=== PATIENT | male | born 1960 | race Caucasian/White ===

== ENCOUNTER 2020-04-07 01:12 | Outpatient (CLI) | payer MEDICAID, SELFPAY ==
[2020-04-07 14:37] LABS: Hemoglobin A1C 7.6 % (<5.7)
[2020-04-07 14:48] LABS: COMMENT (LAB VIEW ONLY) 158.28 mg/dL
[2020-04-07 14:50] LABS: Microalb ug/mg Crea 393.6 ug/mg Cr
[2020-04-07 15:35] LABS: ALT 27 U/L (16-63); AST 15 U/L (15-37); Albumin 4.2 g/dL (3.4-5.0); Alkaline Phosphatase 89 U/L (46-116); Anion Gap 10.7 mmol/L (3-11); BUN 54 mg/dL (7-18); Bilirubin, Total 0.9 mg/dL (0.2-1.0); CO2 22.3 mmol/L (21.0-32.0); CREATININE 2.6 mg/dL (0.70-1.30); Calcium 9.3 mg/dL (8.5-10.1); Calculated LDL 70 mg/dL (<100); Chloride 106 mmol/L (98-107); Cholesterol 136 mg/dL (<200); Folate 15.4 ng/mL (8.6-20.0); Glucose 119 mg/dL (74-106); HDL Cholesterol 37 mg/dL (40-60); Potassium 5.2 mmol/L (3.5-5.1); Sodium 139 mmol/L (136-145); TSH (W/Ref FT4) 2.22 uIU/mL (0.36-3.74); Total Protein 8.2 g/dL (6.4-8.2); Triglyceride 145 mg/dL (<150); Vitamin B12 430 pg/mL (193-986)
[2020-04-07 22:06] LABS: PSA, Screening 4.9 ng/mL (0.0-4.5)
[2020-04-10 10:39] LABS: Hepatitis C Ab w Rflx HCV PCR Negative (Negative)
[2020-04-10 11:27] LABS: HIV-1/2 Ag & Ab Screen Negative (Negative)
== END 2020-04-07 01:13 | disposition home or self-care (01) ==
LOC: LBO 01:12
PROVIDERS: PCP Nurse Practitioner Adult Health; Visit Provider Nurse Practitioner Adult Health
DX: I10 Essential (primary) hypertension (principal); E78.5 Hyperlipidemia, unspecified; E10.8 Type 1 diabetes mellitus with unspecified complications; N18.30 Chronic kidney disease, stage 3 unspecified; Z11.59 Encounter for screening for other viral diseases; Z11.4 Encounter for screening for human immunodeficiency virus [HIV]; Z12.5 Encounter for screening for malignant neoplasm of prostate
CPT/HCPCS: 36415; 80053; 80061; 84153; 86803; 87389; 82043; 82570; 82607; 82746; 83036; 84443

== ENCOUNTER 2020-05-30 03:49 | Outpatient (CLI) | payer MEDICAID, SELFPAY ==
[2020-05-30 11:47] LABS: Anion Gap 10.2 mmol/L (3-11); BUN 60 mg/dL (7-18); CO2 23.8 mmol/L (21.0-32.0); CREATININE 2.5 mg/dL (0.70-1.30); Calcium 9.6 mg/dL (8.5-10.1); Chloride 108 mmol/L (98-107); Estimated GFR 26.48 (mL/min/1.73m2); Glucose 176 mg/dL (74-106); Potassium 5.9 mmol/L (3.5-5.1); Sodium 142 mmol/L (136-145)
[2020-05-30 17:49] LABS: PSA, Screening 4.6 ng/mL (0.0-4.5)
== END 2020-05-30 03:50 | disposition home or self-care (01) ==
LOC: LBO 03:49
PROVIDERS: PCP Nurse Practitioner Adult Health; Visit Provider Nurse Practitioner Adult Health
DX: E87.5 Hyperkalemia (principal); N18.30 Chronic kidney disease, stage 3 unspecified; R97.20 Elevated prostate specific antigen [PSA]; Z12.5 Encounter for screening for malignant neoplasm of prostate
CPT/HCPCS: 36415; 80048; 84153

== ENCOUNTER 2020-06-16 02:16 | Outpatient (CLI) | payer MEDICAID, SELFPAY ==
[2020-06-16 13:28] LABS: Anion Gap 9.7 mmol/L (3-11); BUN 46 mg/dL (7-18); CO2 23.3 mmol/L (21.0-32.0); Calcium 9.2 mg/dL (8.5-10.1); Chloride 109 mmol/L (98-107); Estimated GFR 34.25 (mL/min/1.73m2); Glucose 122 mg/dL (74-106); Potassium 5.5 mmol/L (3.5-5.1); Sodium 142 mmol/L (136-145)
== END 2020-06-16 02:17 | disposition home or self-care (01) ==
LOC: LBO 02:16
PROVIDERS: PCP Nurse Practitioner Adult Health; Visit Provider Nurse Practitioner Adult Health
DX: R79.89 Other specified abnormal findings of blood chemistry; E87.5 Hyperkalemia; Z85.528 Personal history of other malignant neoplasm of kidney; Z90.5 Acquired absence of kidney
CPT/HCPCS: 36415; 76770; 80048

== ENCOUNTER 2020-06-16 03:50 | Outpatient (CLI) | payer MEDICAID, SELFPAY ==
--- NOTE | 2020-06-16 07:45 | DI.US_ITS ---
EXAM: US RENAL CLINICAL HISTORY: ELEVATED CREATININE,H/O RENAL CELL CA,S/P RT NEPHRECTOMY AND LT PARTIAL KID. TECHNIQUE: Poon scale, color and spectral Doppler were used. COMPARISON: No exams were available for comparison FINDINGS: Renal size in cm: Right: Status post right nephrectomy. Left: 13.3. Echogenicity: Normal. Hydronephrosis: No. Cyst or mass: No. Nephrolithiasis: No. Other findings: None. Bladder:There is impingement on the base of the urinary bladder by the enlarged prostate gland. No b ladder mass is seen. Ureteral jets: Right: Status post right nephrectomy. Left: Visualized and unremarkable. Prevoid vol:143 cc Postvoid vol:6 cc Prostate: 62.4 cc Renal color flow: Within normal limits. IMPRESSION: 1. Status post right nephrectomy. 2. Unremarkable left kidney. No evidence of a left renal mass. 3. Enlarged prostate gland. DATA REPOSITORY:
== END 2020-06-16 04:10 ==
PROVIDERS: PCP Nurse Practitioner Adult Health; Visit Provider Urology
DX: Z85.528 Personal history of other malignant neoplasm of kidney (principal); R79.89 Other specified abnormal findings of blood chemistry; Z90.5 Acquired absence of kidney
CPT/HCPCS: 76770

== ENCOUNTER 2020-10-05 09:50 | Outpatient (CLI) | payer MEDICAID, SELFPAY ==
--- NOTE | 2020-10-05 08:45 | DI.RAD_ITS ---
Exam(s) XR ELBOW LT COMPLETE EXAM: XR ELBOW LT COMPLETE CLINICAL HISTORY: pain. TECHNIQUE: 2D digital imaging was performed. COMPARISON: No exams were available for comparison FINDINGS: There is no evidence of obvious acute fracture although there does appear to be a joint effusion with elevation both anterior posterior fat pads in the left elbow. Deformity of the left radial head is most probably degenerative. Also degenerative changes at the joint space between the medial aspect o f the trochlea and coronoid. The medial epicondyle exhibits a small excrescence.. [place] noted adj acent to the lateral epicondyle. Incidentally noted is abnormal appearance of the medullary cavity in the visualized proximal half of the radius. Suspicious for infiltrative disorder or fibrous dysplasia. IMPRESSION: Degenerative changes in the elbow joint. Elbow joint effusion. No obvious fractures. Possible loos e intra-articular bodies. Incidentally noted is abnormal medullary cavity appearance of the visualized proximal half of the rad ius. Consideration are or fibrous dysplasia versus is infiltrative disorder. DATA REPOSITORY: RADIATION DOSE DELIVERED:
--- NOTE | 2020-10-05 09:15 | DI.RAD_ITS ---
Exam(s) XR FOREARM LT EXAM: XR FOREARM LT CLINICAL HISTORY: radius findings on elbow xray. TECHNIQUE: 2D digital imaging was performed. COMPARISON: CR XR FOREARM LT from 10/05/2020 CR XR FOREARM LT from 10/05/2020 FINDINGS: Views of the left forearm bones with comparison views of the right side. There are no fractures. The medullary cavity of the left radius appears somewhat abnormal, having the appearance of possibly fibrous dysplasia. Other consideration would be for an infiltrative process. The medullary cavity of the ulna is unremarkable. 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 Cannot ex clude infiltrative disorder. Recommend whole body nuclear bone scan. DATA REPOSITORY: RADIATION DOSE DELIVERED:
--- NOTE | 2020-10-05 09:15 | DI.RAD_ITS ---
Exam(s) XR FOREARM RT EXAM: XR FOREARM RT CLINICAL HISTORY: radius findings on elbow xray. TECHNIQUE: 2D digital imaging was performed. COMPARISON: CR XR FOREARM RT from 10/05/2020 CR XR FOREARM RT from 10/05/2020 FINDINGS: Two views of the right forearm reveal no evidence of fracture or dislocation. No osseous lesions. The medullary cavity of the right radius appears unremarkable, particularly when compared to the medu llary cavity of the opposite-left radius. Ulna appears unremarkable. IMPRESSION: DATA REPOSITORY: RADIATION DOSE DELIVERED:
== END 2020-10-05 09:51 | disposition home or self-care (01) ==
LOC: DIORS 09:50
PROVIDERS: PCP Nurse Practitioner Adult Health; Referring Provider Nurse Practitioner Adult Health; Visit Provider Physician Assistant Surgical
DX: M19.022 Primary osteoarthritis, left elbow; M25.422 Effusion, left elbow; M85.0 Fibrous dysplasia (monostotic); S59.902A Unspecified injury of left elbow, initial encounter; X58.XXXA Exposure to other specified factors, initial encounter
CPT/HCPCS: 73080; 73090

== ENCOUNTER 2020-10-31 01:57 | Outpatient (CLI) | payer MEDICAID, SELFPAY ==
--- NOTE | 2020-10-31 07:15 | DI.MRI_ITS ---
Exam(s) MR UPPER EXTREMITY LT WO CLINICAL HISTORY: eval radial bone lesion LT FOREARM,M89.9. TECHNIQUE: Multiplanar multisequence MRI Examination was performed. COMPARISON: None FINDINGS: The examination is limited due to patient motion artifact. Bones: The proximal radial diaphysis appears mildly expansile. There is some thinning of the cortex anteriorly. There is hyperintense signal seen on the T1 weighted images predominantly hypointense si gnal on the fat suppressed T2 weighted images. There is an area in the proximal shaft measuring 2.7 cm with a thin peripheral hypointense rim. No marrow edema is identified. No associated soft tissue mass is seen. Musculotendinous structures: There is no muscular edema, myositis or focal collection. No muscular in jury Joints: There are mild degenerative changes seen at the elbow joint with thinning of the articular ca rtilage and subchondral edema. There is a very small joint effusion. IMPRESSION: Mildly expansile proximal radial diaphyseal lesion which appears to follow fat on all pulse sequences . This may represent an intraosseous lipoma. Neoplasm is not excludable. No associated soft tissue mass or cortical disruption is identified. A postcontrast examination is recommended for further ev aluation. A bone scan and/or CT scan may also be considered for further evaluation.. DATA REPOSITORY:
== END 2020-10-31 02:17 ==
PROVIDERS: PCP Nurse Practitioner Adult Health; Visit Provider Student in an Organized Health Care Education/Training Program
DX: M79.632 Pain in left forearm; M19.022 Primary osteoarthritis, left elbow; M89.8X3 Other specified disorders of bone, forearm
CPT/HCPCS: 73218

== ENCOUNTER 2020-10-31 09:51 | Emergency (ER) | payer MEDICAID, SELFPAY ==
[2020-10-31 10:00] VITALS: BP 131/85; PULSE 66; RESP 18; TEMP 36.4; O2SAT 96
--- NOTE | 2020-10-31 10:10 | ED.GENADUL_ITS ---
Discharge Plan Disposition Patient Disposition: HOME Condition: Stable Discharge Details Clinical Impression: Finger injury Primary Care Provider: Mel Llamas ED Provider: Jerome Claudio Home Meds and New Rx's Prescriptions: Continued metoprolol succinate 25 mg tablet extended release 24 hr 25 mg PO HS Qty: 90 RF: 3 atorvastatin 20 mg tablet 20 mg PO QHS Qty: 90 RF: 3 Lantus Solostar U-100 Insulin 100 unit/mL (3 mL) insulin pen 38 unit subcut HS MDD 45 units daily Qty: 45 RF: 3 (DME) lancets Misc See Rx Instructions .MEDSUPPLY RF: 0 gabapentin 300 mg capsule 300 mg PO QHS PRN (Reason: nerve pain in legs & CTS) Qty: 30 RF: 1 (DME) Blood Glucose Test Strip See Rx Instructions .ROUTE .MEDSUPPLY Qty: 400 RF: 3 (DME) pen needle, diabetic [BD Ultra-Fine Doreen Pen Needle] 32 gauge x 5/32 needle See Rx Instructions .ROUTE .MEDSUPPLY Qty: 360 RF: 3 insulin lispro [Humalog KwikPen Insulin] 100 unit/mL insulin pen 12 - 15 unit subcut TID PRNRF: 0 duloxetine 60 mg capsule,delayed release(DR/EC) 60 mg PO QAM Qty: 90 RF: 3 Discharge Instructions Instructions: Finger Sprain (ED) Additional Instructions: Awake aware kenny taping and splint as needed, advance activity as tolerated. Rest, elevate, cool compresses every 2 hours for 20 minutes. [id number] Tylenol as directed for discomfort. Please watch for new or worsening symptoms and return to the ER for any concerns Medical Decision Making 60-year-old gentleman, [id number], presents for left third finger pain and swelling, not sure of any injury. No fever, other joint pain, erythema, warmth, signs of infection, etc. Neuro, vascular, tendon intact. Will obtain x-ray and reassess X-ray read by radiology is unremarkable. Discussed x-ray findings with patient. Will kenny tape and apply AlumaFoam finger splint. Patient comfortable with this plan and has no additional questions or concerns. Standard discharge and return precautions given This documentation was generated using [employer] system, please disregard any oddities of phrase or misspellings. Medical Records Medical records reviewed: Yes I reviewed the patient's medical records. Imaging Data Radiologic Study: Attestation: I personally reviewed and interpreted this imaging study as follows: Imaging: X-Ray Radiologist's impression: EXAM XR HAND LT COMPLETE CLINICAL HISTORY [ L 3rd finger pain/swelling. ] [] TECHNIQUE 2D digital imaging was performed. COMPARISON [No exams were available for comparison] [] FINDINGS BONES: [No acute fracture is present.] [No bony destructive lesion is seen.] [] JOINTS: [No dislocation present.] [Minimal degenerative changes are seen in the hand.] SOFT TISSUE: [There is soft tissue swelling of the left 3rd finger. No radi opaque foreign bodies are seen.] [] IMPRESSION [Soft tissue swelling of the left 3rd finger. No radiopaque foreign body, fracture or dislocation. HPI General Mode of arrival: ambulatory . Date/Time Provider Initiated Documentation: 10/31/20 10:04 . Limitations to Documentation: no limitations . Information obtained by: patient . HPI Narrative: This is a 60-year-old gentl eman, [id number], past medical history that includes bilateral carpal tunnel syndrome, CKD, diabetes, hypertension, neuropathy, presenting to the ER complaining of atraumatic left middle finger discomfort. Patient reports it has been present for at least 2-3 days, swollen but denies redness or warmth. Denies fever, rash, any other joint pain. He has taken [id number] Tylenol with little relief. Patient is unaware of any obvious injury. Reports that he is pain-free at rest but with attempting to flex the finger has increased discomfort. Is able to fully extend the finger. Denies any numbness, tingling, weakness. Related Data Home Medications Medication Instructions Recorded Confirmed metoprolol succinate 25 mg 25 mg PO HS #90 tab 03/06/20 10/31/20 tablet,extended release 24 hr blood sugar diagnostic #400 ea 05/12/20 10/31/20 pen needle, diabetic 32 gauge x #360 ea 05/12/20 10/31/20 insulin lispro 100 unit/mL 12 - 15 unit SUBCUT TID PRN ml 05/19/20 10/31/20 subcutaneous pen lancets ea 08/03/20 10/31/20 atorvastatin 20 mg tablet 20 mg PO QHS #90 tab 08/07/20 10/31/20 insulin glargine 100 unit/mL (3 38 unit SUBCUT HS #45 ml MDD 45 08/07/20 10/31/20 mL) subcutaneous pen units daily gabapentin 300 mg capsule 300 mg PO QHS PRN #30 cap 09/15/20 10/31/20 duloxetine 60 mg capsule,delayed 60 mg PO QAM #90 cap 10/26/20 10/31/20 release Previous Rx's Medication Instructions Recorded metoprolol succinate 25 mg 25 mg PO HS #90 tab 03/06/20 tablet,extended release 24 hr blood sugar diagnostic #400 ea 05/12/20 pen needle, diabetic 32 gauge x #360 ea 05/12/20 atorvastatin 20 mg tablet 20 mg PO QHS #90 tab 08/07/20 insulin glargine 100 unit/mL (3 38 unit SUBCUT HS #45 ml MDD 45 08/07/20 mL) subcutaneous pen units daily gabapentin 300 mg capsule 300 mg PO QHS PRN #30 cap 09/15/20 duloxetine 60 mg capsule,delayed 60 mg PO QAM #90 cap 10/26/20 release Allergies Allergy/AdvReac Type Severity Reaction Status Date / Time No Known Allergies Allergy Verified 10/31/20 10:04 lactose intolerant AdvReac Mild Diarrhea Uncoded 10/31/20 10:04 General Stated Complaint: Orthopedic GALILEO: 4 Review of Systems Constitutional Constitutional: Denies fever(s) and Denies weakness Musculoskeletal Musculoskeletal: Denies deformity, Reports arthralgias, Denies numbness, Reports stiffness and Denies tingling Integumentary/Breasts Skin/Breast: Denies erythema and Denies rash Neurologic Neurologic: Denies numbness, Denies tingling and Denies weakness [facility] Medical History Bilateral carpal tunnel syndrome Carpal tunnel syndrome on both sides +[facility] 05/08/2020 Chronic gingivitis, plaque induced 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 CKD (chronic kidney disease) stage 3, GFR 30-59 ml/min DMT1 & Solitary partial L kidney Cubital tunnel syndrome on left Cubital tunnel syndrome on right Elevated serum creatinine Family history of prostate cancer F History of elevated PSA Per [facility] Records--01/14/2019 6.41, 04/28/2018 6.32; +Fam hx prostate cancer in F History of opioid abuse s/p surgeries History of renal cell cancer s/p nephrectomy Hyperlipidemia Hypertension RX Lisinopril Neuropathy h/o Neurologist Polyneuropathy associated with underlying disease DM Renal cell carcinoma Serum potassium elevated Solitary left kidney s/p nephrectomy on R 2004 renal cell cancer; partial nephrectomy on L 2007 Tubular adenoma of colon 08/2018 colonoscopy [facility]; recall 5y Type 1 diabetes mellitus without complications Surgical History H/O partial nephrectomy (~04/2007) left History of nephrectomy, right (~03/2004) Renal cell cancer Family History Mother , 54yo breast cancer Alcohol abuse Breast cancer Depression Substance abuse Father , ~70yo prostate cancer Alcohol abuse Prostate cancer Substance abuse Sister , throat caner (nicotine use) Alcohol abuse Cancer Cervical Substance abuse Social History Smoking/Tobacco Use Status: Never Smoking risk assessment performed?: Yes Alcohol Intake: former Year quit: 2019 Previous attempts at quittin Counseling given: Yes ([facility]) Drug use: Current Sobriety Substance use type: opiates Details: no IV drug use Adopted: No Caregiver/Support person: No Foster care: No Household members: other Details: Sober Living Facility Housing: other Number of Children: 4 number of grandchildren: 4 Communication Needs: None Education Level: college Do you need help understanding health information?: Rarely 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: RETIRED [employer] (ON SSDI) Pets and animals: Yes Pets and animals: cat(s) Sexually active: No Do you think of yourself as: straight/heterosexual Current gender identity: male What is your relationship status?: How often do you talk on the phone with friends or family?: three or more times per week How often do you get together with friends or relatives?: three or more times per week How often do you attend anglican or jehovah's witness services?: 4 or more times per year Do you belong to any clubs or organized social groups?: no Panel score (0-1 are the most socially isolated patients): 2 What type of physical activity do you participate in: walking, bicycling and other Details: EXERCISE ON STATIONARY BIKE Duration: < 15 minutes/day Frequency: 3-4 times per week Erin/Christian: Rastafarian Agree to transfusion: No Seatbelt use: always Helmet use: Yes 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 Water heater temp set <120 deg: Yes Working smoke detector in home: Yes Fire extinguisher in home: Yes Do you feel safe at home: Yes Do you feel safe in your relationship?: Yes Exam Const General: cooperative, healthy appearing, comfortable and no acute distress Orientation: alert and awake [facility] Head: normal to inspection, normocephalic and atraumatic Eyes General: appearance normal, both eyes and all related structures Conjunctivae: conjunctivae normal Neck Neck: normal visual inspection, trachea midline and supple Resp Effort & Inspection: normal respiratory effort and able to speak in complete sentences Cardio Rate: regular rate Rhythm: regular rhythm Skin General skin exam: no rashes or lesions noted Neuro General: patient alert, patient awake, moves all extremities and no focal motor deficits Cognition: normal cognition Speech: speech normal Gait: normal gait Sensory Exam: no sensory deficits noted Extrem General: capillary refill normal Other: Left hand, third digit from the MCP to the DIP joint with diffuse mild swelling and mild discomfort, no erythema, warmth or ecchymosis. The MCP joint itself is unremarkable, nontender. Full extension, limited flexion. Normal capillary refill and radial pulse. Otherwise hand and digits are unremarkable. Skin is intact. Psych Appearance: grossly normal Mental Status: mental status grossly normal Course Vital Signs Vital signs: Vital Signs Temperature 36.4 C L 10/31/20 10:00 Pulse 66 10/31/20 10:00 Respiratory Rate 18 10/31/20 10:00 Blood Pressure 131/85 10/31/20 10:00 Pulse Oximetry 96 10/31/20 10:00 Temperature 36.4 C L 10/31/20 10:00 Temperature Source Temporal Artery Scan 10/31/20 10:00 Pulse 66 10/31/20 10:00 Respiratory Rate 18 10/31/20 10:00 Respiratory Effort Non-Labored 10/31/20 10:03 Blood Pressure 131/85 10/31/20 10:00 Blood Pressure Position Sitting 10/31/20 10:00 Pulse Oximetry 96 10/31/20 10:00 Oxygen Delivery Method Room Air 10/31/20 10:00 Oxygen Flow Rate 0 10/31/20 10:00 Pain Level 4 10/31/20 10:06
--- NOTE | 2020-10-31 10:33 | DI.RAD_ITS ---
Exam(s) XR HAND LT COMPLETE EXAM: XR HAND LT COMPLETE CLINICAL HISTORY: L 3rd finger pain/swelling. TECHNIQUE: 2D digital imaging was performed. COMPARISON: No exams were available for comparison FINDINGS: BONES: No acute fracture is present. No bony destructive lesion is seen. JOINTS: No dislocation present. Minimal degenerative changes are seen in the hand. SOFT TISSUE: There is soft tissue swelling of the left 3rd finger. No radiopaque foreign bodies are seen. IMPRESSION: Soft tissue swelling of the left 3rd finger. No radiopaque foreign body, fracture or dislocation. DATA REPOSITORY: RADIATION DOSE DELIVERED:
== END 2020-10-31 11:13 | disposition home or self-care (01) ==
PROVIDERS: Emergency Provider Physician Assistant; PCP Nurse Practitioner Adult Health
DX: S69.82XA Other specified injuries of left wrist, hand and finger(s), initial encounter (principal); X58.XXXA Exposure to other specified factors, initial encounter
CPT/HCPCS: 29130; 99283; 73130

== ENCOUNTER 2020-11-22 00:35 | Outpatient (CLI) | payer MEDICAID, SELFPAY ==
[2020-11-22 10:29] LABS: Hemoglobin A1C 10.2 % (<5.7)
[2020-11-22 10:55] LABS: Anion Gap 10.4 mmol/L (3-11); BUN 46 mg/dL (7-18); CO2 23.6 mmol/L (21.0-32.0); CREATININE 2.2 mg/dL (0.70-1.30); Calcium 9.2 mg/dL (8.5-10.1); Chloride 107 mmol/L (98-107); Estimated GFR 30.58 (mL/min/1.73m2); Glucose 240 mg/dL (74-106); Potassium 5.5 mmol/L (3.5-5.1); Sodium 141 mmol/L (136-145)
[2020-11-22 17:03] LABS: PSA, Diagnostic 5.6 ng/mL (0.0-4.5)
== END 2020-11-22 00:36 | disposition home or self-care (01) ==
PROVIDERS: Urology; PCP Nurse Practitioner Adult Health; Visit Provider Nurse Practitioner Adult Health
DX: E10.8 Type 1 diabetes mellitus with unspecified complications (principal); N18.30 Chronic kidney disease, stage 3 unspecified; R97.20 Elevated prostate specific antigen [PSA]
CPT/HCPCS: 36415; 80048; 83036; 84153

== ENCOUNTER 2021-05-30 03:34 | Outpatient (CLI) | payer MEDICAID, SELFPAY ==
--- NOTE | 2021-05-31 15:00 | NS.NUTBLAN_ITS ---
Dylan was referred for Diabetes Self Management. PMH: HTN, obesity (BMI 38), Recovered poly substance abuse. 5'9 250 lbs. DM meds: trulicity .5 ml q week, lantus 42 units HS, lispro 12-15 u at meals. Reports often forgetting to take basal and bolus insulin, especially lunch insulin. Diet Recall: cereal, almond milk, ham sandwich on bun, crock pot meal with beef/beans/ veggies. Does not drink soda or high sugar beverages. Most recent A1C: 10.9%. Exercise: no routine exercise Session today focused on how to balance carbs/protein and fats at meals for glycemic management. Encouraged daily walking of 1-2 miles or using pedometer (on i phone) and meeting 10, 000 steps daily. Reviewed correction factor and carb counting. Placed dexcom 6 continuous glucose monitor and programmed i phone as reader. Set up remote monitoring with [facility]. Reviewed CGM data today and noted elevated blood sugars (259 mg/dl) during night and morning. Follow up with Dylan and he reports forgetting to take basal insulin last night as at function at jehovah's witness. Encouraged taking insulin as prescribed to reduce risk of complications from poorly controlled DM. Will follow up with PCP to order dexcom 6 sensors (3 per month) as will be covered on [place] Medicaid as takes insulin 4 times daily and has been checking finger sticks regularly. Follow up meeting with data download scheduled for 06/11/21 at 3 pm. Dylan will replace current sensor prior to meeting.
== END 2021-05-30 03:35 | disposition home or self-care (01) ==
LOC: DS 03:35
PROVIDERS: PCP Nurse Practitioner Adult Health; Visit Provider Dietitian, Registered
DX: E11.9 Type 2 diabetes mellitus without complications (principal); I10 Essential (primary) hypertension; Z79.4 Long term (current) use of insulin; E66.9 Obesity, unspecified; Z71.3 Dietary counseling and surveillance
CPT/HCPCS: 97802

== ENCOUNTER → 2021-06-08 01:08 | Outpatient (CLI) | payer MEDICAID, SELFPAY | PROVIDERS: PCP Nurse Practitioner Adult Health; Visit Provider Nurse Practitioner Adult Health ==

== ENCOUNTER 2021-06-11 03:03 | Outpatient (CLI) | payer MEDICAID, SELFPAY ==
--- NOTE | 2021-06-05 10:26 | W.DIABETESNO ---
Date of service: 06/05/21 Time of Service: 10:26 Diabetes Note Reason for Visit: dm NOTE: Spoke to Dylan on phone after viewing his Dexcom 6 continuous glucose monitor data from previous week. Dm Meds: Trulicity 0.5 mg, Lantus 42 u HS, Lispro 12-15u at meals. Average blood sugars (06/04/21-05/22/21): 244 mg/dl, 16.9% Time in Range (70-180), 83% (180-249), 42.5% (>250 mg/dl). Current insulin regime not providing optimal glycemic management. Faxed CGM data to [facility] [place] endocrinology and communicated with Ryne sahu. Dylan to follow up with [facility] [place] endo for insulin adjustments. Provided him with education on correction factor (1:20) and carb counting (1:5) in view of insulin resistance. Will follow up. next appt. scheduled for 06/11/21 at 3 pm. Time Spent in Nutritional Counseling and Treatment: 5
== END 2021-06-11 03:04 | disposition home or self-care (01) ==
LOC: DS 03:03
PROVIDERS: PCP Nurse Practitioner Adult Health; Visit Provider Dietitian, Registered

== ENCOUNTER 2021-06-14 02:41 | Outpatient (CLI) | payer MEDICAID, SELFPAY | END 2021-06-14 02:42 | disposition home or self-care (01) | LOC: DS 02:41 | PROVIDERS: PCP Nurse Practitioner Adult Health; Visit Provider Dietitian, Registered ==

== ENCOUNTER 2021-06-22 00:47 | Outpatient (CLI) | payer MEDICAID, SELFPAY ==
--- NOTE | 2021-06-22 07:15 | DI.US_ITS ---
Exam(s) US RENAL EXAM: US RENAL CLINICAL HISTORY: monitoring left kidney,renal cell ca,elevated creatinine,r79.89,c64.9. TECHNIQUE: Poon scale, color and spectral Doppler were used. COMPARISON: US US RENAL from 06/16/2020 FINDINGS: Renal size in cm: Right: Status post right nephrectomy. Left: 12.7 x 7 x 7.7 cm. Echogenicity: Normal Hydronephrosis: No Cyst or mass: No Nephrolithiasis: No Bladder:Question of mild wall thickening and trabeculation. Prevoid vol: 134 cc Postvoid vol:10 cc Prostate not well imaged. Slight impression on the base of the bladder. IMPRESSION: Status post right nephrectomy. No evidence of left renal mass, stone or hydronephrosis. Mild bladde r wall thickening and trabeculation. DATA REPOSITORY:
== END 2021-06-22 01:07 ==
PROVIDERS: PCP Nurse Practitioner Adult Health; Visit Provider Nurse Practitioner Gerontology
DX: C64.1 Malignant neoplasm of right kidney, except renal pelvis (principal); R79.89 Other specified abnormal findings of blood chemistry; Z90.5 Acquired absence of kidney; N32.89 Other specified disorders of bladder
CPT/HCPCS: 76770

== ENCOUNTER 2021-10-04 03:02 | Outpatient (CLI) | payer OTHER, SELFPAY ==
[2021-10-04 08:51] LABS: Anion Gap 11.9 mmol/L (3-11); BUN 57 mg/dL (7-18); CO2 20.1 mmol/L (21.0-32.0); CREATININE 2.4 mg/dL (0.70-1.30); Calcium 9.3 mg/dL (8.5-10.1); Calculated LDL 64 mg/dL (<100); Chloride 109 mmol/L (98-107); Cholesterol 127 mg/dL (<200); Estimated GFR 27.57 (mL/min/1.73m2); Glucose 86 mg/dL (74-106); HDL Cholesterol 39 mg/dL (40-60); Potassium 4.5 mmol/L (3.5-5.1); Sodium 141 mmol/L (136-145); Triglyceride 121 mg/dL (<150)
[2021-10-04 09:03] LABS: COMMENT (LAB VIEW ONLY) 73.27 mg/dL
[2021-10-04 09:14] LABS: Hemoglobin A1C 7.1 % (<5.7)
[2021-10-04 09:37] LABS: Microalb ug/mg Crea 390.7 ug/mg Cr
[2021-10-05 09:19] LABS: PSA, Diagnostic 4.3 ng/mL (<=4.5)
== END 2021-10-04 03:03 | disposition home or self-care (01) ==
LOC: LBO 03:02
PROVIDERS: PCP Nurse Practitioner Adult Health; Visit Provider Nurse Practitioner Gerontology
DX: E10.8 Type 1 diabetes mellitus with unspecified complications (principal); E78.5 Hyperlipidemia, unspecified; E87.5 Hyperkalemia; N18.32 Chronic kidney disease, stage 3b; R97.20 Elevated prostate specific antigen [PSA]; Z80.42 Family history of malignant neoplasm of prostate; R79.89 Other specified abnormal findings of blood chemistry
CPT/HCPCS: 36415; 80048; 80061; 82043; 82570; 83036; 84153

== ENCOUNTER → 2021-10-08 08:24 | Outpatient (BNVA) | payer OTHER, MEDICAID, SELFPAY | PROVIDERS: PCP Nurse Practitioner Adult Health; Referring Provider Nurse Practitioner Adult Health; Visit Provider Nurse Practitioner Gerontology | DX: C64.9 Malignant neoplasm of unspecified kidney, except renal pelvis (principal); Q60.0 Renal agenesis, unilateral; N18.32 Chronic kidney disease, stage 3b; R97.20 Elevated prostate specific antigen [PSA]; R79.89 Other specified abnormal findings of blood chemistry; Z80.42 Family history of malignant neoplasm of prostate | CPT/HCPCS: 99214 ==

== ENCOUNTER 2021-12-02 16:54 | Emergency (ER) | payer OTHER, MEDICAID, SELFPAY ==
[2021-12-02 16:54] VITALS: BP 130/75; PULSE 118; RESP 22; TEMP 36.5; O2SAT 95
--- NOTE | 2021-12-02 16:54 | ED.GENADUL_ITS ---
Discharge Plan Disposition Patient Disposition: STILL A PATIENT Condition: Stable Discharge Details Clinical Impression: Alcohol intoxication Primary Care Provider: Mel Llamas ED Provider: Jerome Claudio Home Meds and New Rx's Prescriptions: No Action acetaminophen [Tylenol] 325 mg tablet 975 mg PO ONCE PRN (DME) lancets Misc See Rx Instructions .MEDSUPPLY Rx Instructions: As directed to check blood glucose four times daily. On insulin. Dispense covered brand. Lantus Solostar U-100 Insulin 100 unit/mL (3 mL) insulin pen 42 unit subcut HS MDD 46 units daily Qty: 45 3RF Rx Instructions: DMT1 (DME) pen needle, diabetic [BD Ultra-Fine Doreen Pen Needle] 32 gauge x needle See Rx Instructions .ROUTE .MEDSUPPLY Qty: 360 3RF Rx Instructions: BD Ultrafine 32G X 6mm, 4x/day for goal A1C<7 for E10.9 insulin lispro [Humalog KwikPen Insulin] 100 unit/mL insulin pen 12 - 15 unit subcut TID PRN Label Comments: 03/06/20 PER PT, SLIDING SCALE - MINIMUM OF 12U Rx Instructions: tid with meals per sliding to keep AIC below 7.0 metoprolol succinate 25 mg tablet extended release 24 hr 25 mg PO HS Qty: 90 3RF chlorthalidone 15 mg tablet 7.5 mg PO DAILY Label Comments: 05/29/21 visit lisinopril 2.5 mg tablet 2.5 mg PO DAILY Label Comments: 05/29/21 office visit baking soda PO Rx Instructions: 1/2 teaspoon per day due to metabolic acidosis (DME) OneTouch Verio test strips Strip See Rx Instructions .ROUTE .COMPLEX Qty: 400 0RF Dose Instruction: USE TO TEST BLOOD GLUCOSE FOUR TIMES DAILY Rx Instructions: USE TO TEST BLOOD GLUCOSE FOUR TIMES DAILY (DME) Dexcom G6 Team Manager Misc See Rx Instructions .Route Qty: 1 0RF Rx Instructions: As directed (DME) Dexcom G6 Sensor Device See Rx Instructions .Route Qty: 9 3RF Rx Instructions: as directed for DM management, requiring Insulin injections 4X day atorvastatin 20 mg tablet See Rx Instructions .ROUTE .COMPLEX Qty: 90 3RF Dose Instruction: TAKE 1 TABLET BY MOUTH EVERY NIGHT AT BEDTIME FOR CHOLESTEROL OR DIABETES Rx Instructions: TAKE 1 TABLET BY MOUTH EVERY NIGHT AT BEDTIME FOR CHOLESTEROL OR DIABETES gabapentin 300 mg capsule See Rx Instructions .ROUTE .COMPLEX Qty: 90 0RF Dose Instruction: TAKE 1 CAPSULE BY MOUTH AT BEDTIME NEEDED FOR NERVE PAIN INLEGS Rx Instructions: TAKE 1 CAPSULE BY MOUTH AT BEDTIME NEEDED FOR NERVE PAIN INLEGS duloxetine 60 mg capsule,delayed release(DR/EC) See Rx Instructions .ROUTE .COMPLEX Qty: 90 0RF Dose Instruction: TAKE 1 CAPSULE BY MOUTH EVERY MORNING Rx Instructions: TAKE 1 CAPSULE BY MOUTH EVERY MORNING (DME) Dexcom G6 Transmitter Device See Rx Instructions .ROUTE .COMPLEX Qty: 1 0RF Dose Instruction: USE DIRECTED Rx Instructions: USE DIRECTED Medical Decision Making 61-year-old gentleman presents to the ER for alcohol intoxication, medication noncompliance, and SI. Clinically he appears well, nontoxic. Plan to initiate a mental health evaluation when sober, interim safety plan, CPSO, and obtain routine screening laboratory values. Glucose in route was in the mid 100s. White blood cell count 10.86. Anion gap 13.0. Patient receiving 1 L IV fluids. Creatinine 2.6 which appears to be near his baseline. GFR of 27.04. TSH 1.15. Salicylates less than 2.8, acetaminophen less than 2. Alcohol 250.7. COVID- negative. Glucose 195. We will provide a second liter of IV fluids Repeat heart rate of 102. Will need to await sobriety and then have the mental health team screen the patient. I was called to the patient's room around 2030, he is requesting to leave, states that his comments that he made earlier were only jokes. I explained to him that he is intoxicated, we must take his comments very seriously, and he needs to be seen by mental health before he can leave. If he does attempt to leave then the local law enforcement will be contacted. This documentation was generated using [employer] system, please disregard any oddities of phrase or misspellings. Medical Records Medical records reviewed: Yes I reviewed the patient's medical records. Lab Data Lab results reviewed: Yes I reviewed the patient's lab results. Labs: Laboratory Tests Range/Units 12/02/21 12/02/21 12/02/21 17:15 17:15 17:15 WBC (4.4-10.8) 10^3/uL 10.86 H RBC (4.36-5.78) 10^6/uL 4.47 Hgb (13.5-17.5) g/dL 13.1 L Hct (40.0-50.0) % 40.0 MCV (80-95) fL 90 MCH (27.0-33.0) pg 29.3 MCHC (32.0-36.0) % 32.8 RDW (11.8-14.1) % 13.2 Plt Count (130-400) 10^3/uL 301 MPV (8.0-11.0) fL 10.0 Immature Gran % 0.7 Neutrophils % 61.8 Lymphocytes % 25.0 Monocytes % 8.9 Eosinophils % 2.8 Basophils % 0.8 Nucleated RBC % (0.0-0.3) % 0.0 Absolute Neutrophils (1.2-6.7) 10^3/uL 6.71 H Absolute Lymphocytes (1.2-3.4) 10^3/uL 2.72 Absolute Monocytes (0.1-0.8) 10^3/uL 0.97 H Absolute Eosinophils (0.0-0.7) 10^3/uL 0.30 Absolute Basophils (0.0-0.2) 10^3/uL 0.09 Sodium (136-145) mmol/L 141 Potassium (3.5-5.1) mmol/L 4.0 Chloride (98-107) mmol/L 106 Carbon Dioxide (21.0-32.0) mmol/L 22.0 Anion Gap (3-11) mmol/L 13.0 H BUN (7-18) mg/dL 46 H Creatinine (0.70-1.30) mg/dL 2.6 H Est GFR (CKD-EPI 2020) (mL/min/1.73m2) 27.04 Glucose (74-106) mg/dL 195 H Calcium (8.5-10.1) mg/dL 8.6 Total Bilirubin (0.2-1.0) mg/dL 0.5 AST (15-37) U/L 17 ALT (16-63) U/L 23 Alkaline Phosphatase (46-116) U/L 69 Total Protein (6.4-8.2) g/dL 7.7 Albumin (3.4-5.0) g/dL 3.8 TSH (0.36-3.74) uIU/mL 1.15 Urine Color (Yellow) Urine Clarity (Clear) Urine pH (5-8) Ur Specific [place] (1.005-1.025) Urine Protein (Negative) mg/dL Urine Ketones (Negative) mg/dL Urine Blood (Negative) Urine Nitrite (Negative) Urine Bilirubin (Negative) Urine Urobilinogen (Up TO 0.2) EU/dL Ur Leukocyte Esterase (Negative) Urine RBC (0-2) HPF Urine WBC (0-5) HPF Ur Epithelial Cells (Negative) HPF Urine Crystals (Negative) HPF Urine Bacteria (Negative) HPF Urine Casts (Negative) LPF Urine Mucus (Negative) Urine Other (Negative) Ur Culture Indicated? Urine Glucose (Negative) mg/dL Salicylates (<2.8) mg/dL < 2.8 Urine Opiates Screen (Negative) Urine Methadone Screen (Negative) Acetaminophen (10-30) ug/mL < 2 Ur Barbiturates Screen (Negative) Ur Tricyclics Screen (Negative) Ur Amphetamines Screen (Negative) U Benzodiazepines Scrn (Negative) Urine Cocaine Screen (Negative) Ur THC Screen (Negative) Ethyl Alcohol (<10) mg/dL 250.7 H COVID-19 Source SARS-CoV-2 (PCR) (Negative) Range/Units 12/02/21 12/02/21 12/02/21 18:30 22:00 22:00 WBC (4.4-10.8) 10^3/uL RBC (4.36-5.78) 10^6/uL Hgb (13.5-17.5) g/dL Hct (40.0-50.0) % MCV (80-95) fL MCH (27.0-33.0) pg MCHC (32.0-36.0) % RDW (11.8-14.1) % Plt Count (130-400) 10^3/uL MPV (8.0-11.0) fL Immature Gran % Neutrophils % Lymphocytes % Monocytes % Eosinophils % Basophils % Nucleated RBC % (0.0-0.3) % Absolute Neutrophils (1.2-6.7) 10^3/uL Absolute Lymphocytes (1.2-3.4) 10^3/uL Absolute Monocytes (0.1-0.8) 10^3/uL Absolute Eosinophils (0.0-0.7) 10^3/uL Absolute Basophils (0.0-0.2) 10^3/uL Sodium (136-145) mmol/L Potassium (3.5-5.1) mmol/L Chloride (98-107) mmol/L Carbon Dioxide (21.0-32.0) mmol/L Anion Gap (3-11) mmol/L BUN (7-18) mg/dL Creatinine (0.70-1.30) mg/dL Est GFR (CKD-EPI 2020) (mL/min/1.73m2) Glucose (74-106) mg/dL Calcium (8.5-10.1) mg/dL Total Bilirubin (0.2-1.0) mg/dL AST (15-37) U/L ALT (16-63) U/L Alkaline Phosphatase (46-116) U/L Total Protein (6.4-8.2) g/dL Albumin (3.4-5.0) g/dL TSH (0.36-3.74) uIU/mL Urine Color (Yellow) Yellow Urine Clarity (Clear) Clear Urine pH (5-8) 5.5 Ur Specific [place] (1.005-1.025) 1.010 Urine Protein (Negative) mg/dL 100 H Urine Ketones (Negative) mg/dL Negative Urine Blood (Negative) Negative Urine Nitrite (Negative) Negative Urine Bilirubin (Negative) Negative Urine Urobilinogen (Up TO 0.2) EU/dL 0.2 Ur Leukocyte Esterase (Negative) Negative Urine RBC (0-2) HPF Negative Urine WBC (0-5) HPF Negative Ur Epithelial Cells (Negative) HPF Rare Urine Crystals (Negative) HPF Negative Urine Bacteria (Negative) HPF Negative Urine Casts (Negative) LPF Negative Urine Mucus (Negative) Negative Urine Other (Negative) Negative Ur Culture Indicated? No Urine Glucose (Negative) mg/dL Negative Salicylates (<2.8) mg/dL Urine Opiates Screen (Negative) Negative Urine Methadone Screen (Negative) Negative Acetaminophen (10-30) ug/mL Ur Barbiturates Screen (Negative) Negative Ur Tricyclics Screen (Negative) Negative Ur Amphetamines Screen (Negative) Negative U Benzodiazepines Scrn (Negative) Negative Urine Cocaine Screen (Negative) Negative Ur THC Screen (Negative) Negative Ethyl Alcohol (<10) mg/dL COVID-19 Source Nasal/Nares SARS-CoV-2 (PCR) (Negative) Negative HPI General Mode of arrival: EMS . Date/Time Provider Initiated Documentation: 12/02/21 17:01 . Limitations to Documentation: no limitations . Information obtained by: patient and EMS . HPI Narrative: This is a 61-year-old gentleman with a past sickle history of diabetes, CKD, hypertension, presenting to the ER via EMS admitting to significant alcohol use today, having been noncompliant with his medications, went into a certified wellness program coordinator office concerned that he may have a diabetic emergency. Subsequently law enforcement and EMS were called and EMS transported to the ER. Patient unfortunately is a rather vague and poor historian. He denies recent illness or trauma. He currently has no acute medical concerns or complaints. He does admit to alcohol use today. Patient. Initially denies any SI or HI but then later tells me he came here to and asks me to help him kill himself. Related Data Home Medications Medication Instructions Recorded Confirmed pen needle, diabetic 32 gauge x #360 ea 05/12/20 10/22/21 (BD Ultra-Fine Doreen Pen Needle) insulin lispro 100 unit/mL 12 - 15 unit subcut TID PRN 05/19/20 12/02/21 subcutaneous pen (Humalog KwikPen (U-100) Insulin) lancets 08/03/20 10/22/21 metoprolol succinate 25 mg 25 mg PO HS #90 tabs 03/14/21 12/02/21 tablet,extended release 24 hr insulin glargine 100 unit/mL (3 42 unit (0.42 mL) subcut HS #45 mL 03/28/21 12/02/21 mL) subcutaneous pen (Lantus Solostar U-100 Insulin) baking soda PO 05/29/21 10/22/21 chlorthalidone 15 mg tablet 7.5 mg PO DAILY 05/29/21 12/02/21 lisinopril 2.5 mg tablet 2.5 mg PO DAILY 05/29/21 12/02/21 blood sugar diagnostic (OneTouch #400 strips 06/01/21 10/22/21 Verio test strips) acetaminophen 325 mg tablet 975 mg PO ONCE PRN 06/06/21 10/22/21 (Tylenol) blood-glucose meter,continuous #1 ea 05/02/22 08/22/22 (Dexcom G6 Team Manager misc) blood-glucose sensor (Dexcom G6 #9 ea 07/02/21 10/22/21 Sensor device) atorvastatin 20 mg tablet See Rx Instructions .Route 10/19/21 12/02/21 .COMPLEX #90 tabs duloxetine 60 mg capsule,delayed See Rx Instructions .Route 11/19/21 12/02/21 release .COMPLEX #90 caps gabapentin 300 mg capsule See Rx Instructions .Route 11/19/21 12/02/21 .COMPLEX #90 caps blood-glucose transmitter (Dexcom #1 ea 11/28/21 G6 Transmitter device) Previous Rx's Medication Instructions Recorded pen needle, diabetic 32 gauge x #360 ea 05/12/20 (BD Ultra-Fine Doreen Pen Needle) metoprolol succinate 25 mg 25 mg PO HS #90 tabs 03/14/21 tablet,extended release 24 hr insulin glargine 100 unit/mL (3 42 unit (0.42 mL) subcut HS #45 mL 03/28/21 mL) subcutaneous pen (Lantus Solostar U-100 Insulin) blood sugar diagnostic (OneTouch #400 strips 06/01/21 Verio test strips) blood-glucose meter,continuous #1 ea 07/02/21 (Dexcom G6 Team Manager misc) blood-glucose sensor (Dexcom G6 #9 ea 07/02/21 Sensor device) atorvastatin 20 mg tablet See Rx Instructions .Route 10/19/21 .COMPLEX #90 tabs duloxetine 60 mg capsule,delayed See Rx Instructions .Route 11/19/21 release .COMPLEX #90 caps gabapentin 300 mg capsule See Rx Instructions .Route 11/19/21 .COMPLEX #90 caps blood-glucose transmitter (Dexcom #1 ea 11/28/21 G6 Transmitter device) Allergies Allergy/AdvReac Type Severity Reaction Status Date / Time No Known Allergies Allergy Verified 12/02/21 17:00 lactose intolerant AdvReac Mild Diarrhea Uncoded 12/02/21 17:00 General GALILEO: 4 Review of Systems Constitutional Constitutional: Denies fever(s), Denies headache(s) and Denies weakness Eyes Eyes: Denies change in vision ENT Ears, Nose, Mouth, and Throat: Denies headache(s) and Denies neck pain Cardiovascular Cardiovascular: Denies chest pain and Denies dyspnea Respiratory Respiratory: Denies cough and Denies dyspnea Gastrointestinal Gastrointestinal: Denies abdominal pain, Denies nausea and Denies vomiting Genitourinary Genitourinary: Denies dysuria Musculoskeletal Musculoskeletal: Denies back pain and Denies neck pain Integumentary/Breasts Skin/Breast: Denies rash Neurologic Neurologic: Denies headache(s) and Denies weakness Psychiatric Psychiatric: Denies homicidal ideation and Reports suicidal ideation Hematologic/Lymphatic Hematologic/Lymphatic: Denies easy bleeding and Denies easy bruising PFSH All Active Problems (Updated 12/02/21 @ 22:57 by CONNOR Muñoz) Alcohol intoxication (Acute) Lamellar macular hole of both eyes (Acute 10/25/21) Type 1 diabetes, controlled, with neuropathy (Chronic ~05/2017) Adult onset, diagnosed 05/2017 [facility] Endo Dr. Douglas--recommend GLP1 Personal goal A1C <7% Stage 3b chronic kidney disease (CKD) (Chronic) [facility] Nephro initial consult 07/2020; DMT1 & Solitary partial L kidney s/p nephrectomy due to renal cell cancer Secondary hyperparathyroidism (Acute ~05/2021) 05/29/21 [facility] Nephrology Elevated PSA (Acute) Family history of prostate cancer (Chronic) F Tubular adenoma of colon (Chronic) 08/2018 colonoscopy [facility]; recall 5y Hyperlipidemia (Chronic) Hypertension (Chronic) RX Lisinopril (stopped due to creatinine) Medical History Bilateral carpal tunnel syndrome Carpal tunnel syndrome on both sides +[facility] 05/08/2020 Chronic gingivitis, plaque induced 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 History of alcohol use disorder since 1989 with intermittent sobriety History of elevated PSA Per [place] Records--01/14/2019 6.41, 04/28/2018 6.32; +Fam hx prostate cancer in F History of opioid abuse s/p surgeries; visiting brother 08/2021 ([facility] admission) History of renal cell cancer s/p nephrectomy Hyperkalemia (~05/2021) 05/29/21 [facility] Nephrology Lesion of bone of left forearm proximal radius lesion Osteoarthritis of elbows, bilateral Polyneuropathy associated with underlying disease DM Solitary left kidney [facility] Nephro (initial 07/2020); s/p nephrectomy on R 2004 renal cell cancer; partial nephrectomy on L 2007 Type 1 diabetes mellitus without complications Surgical History H/O arthroscopy of knee Remotely--both knees at some point; he cannot recall what, but thinks meniscal H/O partial nephrectomy (~04/2007) left History of nephrectomy, right (~03/2004) Renal cell cancer Family History Mother , 54yo breast cancer Alcohol abuse Breast cancer Depression Substance abuse Father , ~70yo prostate cancer Alcohol abuse Prostate cancer Substance abuse Sister , throat caner (nicotine use) Alcohol abuse Cancer Cervical Substance abuse Social History Smoking/Tobacco Use Status: Never Smoking risk assessment performed?: Yes Alcohol Intake: current Previous attempts at quittin Counseling given: Yes ([facility]SEL[facility] AT [facility]) Drug use: Current Sobriety Substance use type: opiates Details: no IV drug use Adopted: No Caregiver/Support person: No Foster care: No Household members: other Details: Sober Living Facility Housing: other Number of Children: 4 number of grandchildren: 4 Communication Needs: None Education Level: college Do you need help understanding health information?: Rarely 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: 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[employer] (ON SSDI) Pets and animals: Yes Pets and animals: cat(s) Sexually active: No Do you think of yourself as: straight/heterosexual Current gender identity: male What is your relationship status?: How often do you talk on the phone with friends or family?: three or more times per week How often do you get together with friends or relatives?: three or more times per week How often do you attend restoration or tenriism services?: 4 or more times per year Do you belong to any clubs or organized social groups?: no Panel score (0-1 are the most socially isolated patients): 2 What type of physical activity do you participate in: walking, bicycling and other Details: EXERCISE ON STATIONARY BIKE Duration: < 15 minutes/day Frequency: 3-4 times per week Erin/Catholic: Latter-Day Agree to transfusion: No Seatbelt use: always Helmet use: Yes Drive intox or ride w/intox coal tram driver: No Water heater temp set <120 deg: Yes Working smoke detector in home: Yes Fire extinguisher in home: Yes Do you feel safe at home: Yes Do you feel safe in your relationship?: Yes Exam Const General: cooperative, healthy appearing, comfortable and no acute distress Orientation: alert, awake, oriented to person and oriented to place Other: ETOH likely substance on breath HENMT Head: normal to inspection, normocephalic and atraumatic Face and sinus: normal facial exam Mouth: moist mucous membranes Eyes General: appearance normal, both eyes and all related structures Conjunctivae: conjunctivae normal Neck Neck: normal visual inspection, full ROM, trachea midline and supple Resp Effort & Inspection: normal respiratory effort and able to speak in complete sentences Auscultation: clear to auscultation bilaterally Cardio Rate: tachycardic (112) Rhythm: regular rhythm GI Inspection: obesity Palpation: soft, not firm, no guarding, no pulsatile masses and nontender Back/Spine/Pelvis Back: No back tenderness Skin General skin exam: no rashes or lesions noted Neuro General: patient alert, patient awake, moves all extremities and no focal motor deficits Cognition: normal cognition Speech: speech normal Motor: muscle tone normal throughout Sensory Exam: no sensory deficits noted Extrem General: normal to inspection, full ROM and capillary refill normal Psych Appearance: grossly normal Mental Status: mental status grossly normal
[2021-12-02 16:57] VITALS: RESP 22
[2021-12-02] MEDS: Normal Saline 1,000 ML 1000 ML IV ×2 (17:19→22:31)
[2021-12-02 17:23] LABS: Abs Immature Grans 0.08 10^3/uL (0.0-0.06); Absolute Basophil Count 0.09 10^3/uL (0.0-0.2); Absolute Monocyte Count 0.97 10^3/uL (0.1-0.8); Absolute Neutrophil Count 6.71 10^3/uL (1.2-6.7); Basophils % 0.8; Eosinophils % 2.8; HGB 13.1 g/dL (13.5-17.5); Immature Grans % 0.7; MCH 29.3 pg (27.0-33.0); MCHC 32.8 % (32.0-36.0); MCV 90 fL (80-95); Monocytes % 8.9; Neutrophils % 61.8; Platelet Count 301 10^3/uL (130-400); RBC 4.47 10^6/uL (4.36-5.78); RDW 13.2 % (11.8-14.1); RDW-SD 43.2 fL; WBC 10.86 10^3/uL (4.4-10.8)
[2021-12-02 17:31] LABS: Absolute Lymphocyte Count 2.72 10^3/uL (1.2-3.4)
[2021-12-02 17:58] LABS: ALT 23 U/L (16-63); AST 17 U/L (15-37); Albumin 3.8 g/dL (3.4-5.0); Alkaline Phosphatase 69 U/L (46-116); BUN 46 mg/dL (7-18); Bilirubin, Total 0.5 mg/dL (0.2-1.0); CREATININE 2.6 mg/dL (0.70-1.30); Calcium 8.6 mg/dL (8.5-10.1); Chloride 106 mmol/L (98-107); ETHANOL BLOOD 250.7 mg/dL (<10); Estimated GFR 27.04 (mL/min/1.73m2); Glucose 195 mg/dL (74-106); Sodium 141 mmol/L (136-145); TSH (W/Ref FT4) 1.15 uIU/mL (0.36-3.74); Total Protein 7.7 g/dL (6.4-8.2)
[2021-12-02 18:17] LABS: Salicylate < 2.8 mg/dL (<2.8)
[2021-12-02 18:20] LABS: Acetaminophen < 2 ug/mL (10-30)
--- NOTE | 2021-12-02 18:22 | NUR.NOTE ---
Nursing Note: pt had called this ticket writer into the room, this ticket writer had asked if he was alright, he responed no i'm not alright, I don't know where I am. I explained to him that he was in the hospital and the ambulance had brought him here, he then asked if he could go back to sleep and get the lights turned off.
[2021-12-02 18:37] LABS: Source Nasal/Nares
[2021-12-02 19:07] LABS: COVID-19 PCR Negative (Negative)
[2021-12-02 22:27] LABS: Bilirubin Negative (Negative); Blood Negative (Negative); Clarity Clear (Clear); Glucose Negative (Negative); Ketones Negative (Negative); Leukocyte Esterase Negative (Negative); Nitrite Negative (Negative); Urobilinogen 0.2 EU/dL (Up TO 0.2); pH 5.5 (5-8)
[2021-12-02] MEDS: Metoprolol 25 MG TAB PO (22:31)
[2021-12-02] MEDS: Insulin Glargine 100 UNITS/ML UNIT 42 UNITS SC (22:31)
[2021-12-02] MEDS: Gabapentin 300 MG CAP PO (22:31)
[2021-12-02 22:33] LABS: Bacteria Negative HPF (Negative); C & S Indicated? No; Casts Negative LPF (Negative); Crystals Negative HPF (Negative); Epithelial Cells Rare HPF (Negative); Mucus Negative (Negative); Other Cells Negative (Negative); RBC Negative HPF (0-2); WBC Negative HPF (0-5)
[2021-12-02 22:47] LABS: *AMPHETAMINES SCREEN URINE Negative (Negative); *BARBITURATES SCREEN URINE Negative (Negative); *BENZODIAZEPINES SCREEN URINE Negative (Negative); Cannabinoids THC Negative (Negative); Cocaine Screen,Urine Negative (Negative); METHADONE URINE SCREEN Negative (Negative); OPIATES URINE SCREEN Negative (Negative)
[2021-12-02 22:48] LABS: Tricyclic Antidepressants Negative (Negative)
[2021-12-03 00:16] LABS: Anion Gap 8.2 mmol/L (3-11); BUN 45 mg/dL (7-18); CO2 24.8 mmol/L (21.0-32.0); CREATININE 2.4 mg/dL (0.70-1.30); Calcium 7.9 mg/dL (8.5-10.1); Chloride 111 mmol/L (98-107); Estimated GFR 29.76 (mL/min/1.73m2); Glucose 176 mg/dL (74-106); Potassium 4.3 mmol/L (3.5-5.1); Sodium 144 mmol/L (136-145)
--- NOTE | 2021-12-03 01:15 | W.EDPROG ---
Date of service: 12/03/21 Time of Service: 01:00 Medical Decision Making 0100 -- Repeat BMP notes normalizaiton of anion gap. Pt medically cleared. Will be sober based on alcohol level around 3-4am. Will hold in the ED until mental health evaluation later this morning. 0800 --patient evaluated by mental health and cleared for discharge to home. He is denying SI/HI. Patient will need a ride home. Advised to follow up with the primary care doctor for re-evaluation. Usual and customary return precautions given prior to discharge. Medical Records Medical records reviewed: Yes I reviewed the patient's medical records. Lab Data Lab results reviewed: Yes I reviewed the patient's lab results. Sign Out Sign Out Data: Sign Out Comment: Alcohol intoxication. Sober between 3-4 AM and then will require mental health evaluation for vague SI. Patient receiving 2 L IV fluid and will then need repeat BMP for evaluation of his anion gap. Last updated by Jerome Claudio PA at 12/02/21 22:58 Discharge Plan Disposition Patient Disposition: HOME Condition: Stable Discharge Details Clinical Impression: Alcohol intoxication Primary Care Provider: Mel Llamas ED Provider: Jen Resendiz Home Meds and New Rx's Prescriptions: Continued acetaminophen [Tylenol] 325 mg tablet 975 mg PO ONCE PRN (DME) lancets Misc See Rx Instructions .MEDSUPPLY Rx Instructions: As directed to check blood glucose four times daily. On insulin. Dispense covered brand. Lantus Solostar U-100 Insulin 100 unit/mL (3 mL) insulin pen 42 unit subcut HS MDD 46 units daily Qty: 45 3RF Rx Instructions: DMT1 (DME) pen needle, diabetic [BD Ultra-Fine Doreen Pen Needle] 32 gauge x 5/32 needle See Rx Instructions .ROUTE .MEDSUPPLY Qty: 360 3RF Rx Instructions: BD Ultrafine 32G X 6mm, 4x/day for goal A1C<7 for E10.9 insulin lispro [Humalog KwikPen Insulin] 100 unit/mL insulin pen 12 - 15 unit subcut TID PRN Label Comments: 03/06/20 PER PT, SLIDING SCALE - MINIMUM OF 12U Rx Instructions: tid with meals per sliding to keep AIC below 7.0 metoprolol succinate 25 mg tablet extended release 24 hr 25 mg PO HS Qty: 90 3RF chlorthalidone 15 mg tablet 7.5 mg PO DAILY Label Comments: 05/29/21 visit lisinopril 2.5 mg tablet 2.5 mg PO DAILY Label Comments: 05/29/21 office visit baking soda PO Rx Instructions: 1/2 teaspoon per day due to metabolic acidosis (DME) OneTouch Verio test strips Strip See Rx Instructions .ROUTE .COMPLEX Qty: 400 0RF Dose Instruction: USE TO TEST BLOOD GLUCOSE FOUR TIMES DAILY Rx Instructions: USE TO TEST BLOOD GLUCOSE FOUR TIMES DAILY (DME) Dexcom G6 Calender Operator Helper Misc See Rx Instructions .Route Qty: 1 0RF Rx Instructions: As directed ([facility]) Dexcom G6 Sensor Device See Rx Instructions .Route Qty: 9 3RF Rx Instructions: as directed for DM management, requiring Insulin injections 4X day atorvastatin 20 mg tablet See Rx Instructions .ROUTE .COMPLEX Qty: 90 3RF Dose Instruction: TAKE 1 TABLET BY MOUTH EVERY NIGHT AT BEDTIME FOR CHOLESTEROL OR DIABETES Rx Instructions: TAKE 1 TABLET BY MOUTH EVERY NIGHT AT BEDTIME FOR CHOLESTEROL OR DIABETES gabapentin 300 mg capsule See Rx Instructions .ROUTE .COMPLEX Qty: 90 0RF Dose Instruction: TAKE 1 CAPSULE BY MOUTH AT BEDTIME NEEDED FOR NERVE PAIN INLEGS Rx Instructions: TAKE 1 CAPSULE BY MOUTH AT BEDTIME NEEDED FOR NERVE PAIN INLEGS duloxetine 60 mg capsule,delayed release(DR/EC) See Rx Instructions .ROUTE .COMPLEX Qty: 90 0RF Dose Instruction: TAKE 1 CAPSULE BY MOUTH EVERY MORNING Rx Instructions: TAKE 1 CAPSULE BY MOUTH EVERY MORNING (DME) Dexcom G6 Transmitter Device See Rx Instructions .ROUTE .COMPLEX Qty: 1 0RF Dose Instruction: USE DIRECTED Rx Instructions: USE DIRECTED Discharge Instructions Instructions: Alcohol Intoxication (ED) Additional Instructions: Drink plenty of fluids and get plenty of rest. Continue your regular medications as directed. Follow-up with your primary care doctor in 1 week. Return to the emergency department with any worsening or new concerning symptoms. Discharge Data Discharge Physician: Jen Resendiz
[2021-12-03 05:48] VITALS: O2SAT 94
[2021-12-03 05:49] VITALS: BP 151/91; PULSE 77; O2SAT 94
[2021-12-03 05:50] VITALS: O2SAT 95
[2021-12-03 06:39] VITALS: BP 151/91; PULSE 80; RESP 16; O2SAT 94
[2021-12-03 08:33] VITALS: BP 124/70; PULSE 84; RESP 17; TEMP 36.6; O2SAT 97
== END 2021-12-03 08:35 | disposition home or self-care (01) ==
PROVIDERS: Physician Assistant; Emergency Provider Physician Assistant; PCP Nurse Practitioner Adult Health
DX: F10.929 Alcohol use, unspecified with intoxication, unspecified (principal); E10.22 Type 1 diabetes mellitus with diabetic chronic kidney disease; I12.9 Hypertensive chronic kidney disease with stage 1 through stage 4 chronic kidney disease, or unspecified chronic kidney disease; N18.9 Chronic kidney disease, unspecified; Z91.14 Patient's other noncompliance with medication regimen; Y90.8 Blood alcohol level of 240 mg/100 ml or more; R00.0 Tachycardia, unspecified; Z20.822 Contact with and (suspected) exposure to COVID-19
CPT/HCPCS: 80048; 80053; 80307; 87635; 96360; 96361; 96372; 99284; 80320; 80329; 81003; 81015; 84443; 85025; J1815

== ENCOUNTER → 2022-02-20 15:10 | Outpatient (CLI) | payer OTHER, MEDICAID, SELFPAY ==
--- NOTE | 2022-02-20 14:21 | DI.RAD_ITS ---
Exam(s) XR WRIST LT COMPLETE EXAM: XR WRIST LT COMPLETE CLINICAL HISTORY: x2m pain, distal L radius M25.539 M25.532 PAIN LEFT WRIST. TECHNIQUE: 2D digital imaging was performed. COMPARISON: CR XR HAND LT COMPLETE from 10/31/2020 FINDINGS: 3 views No obvious fracture or dislocation. There is, however, small ossified density between the distal rad ius and ulna which was not evident on the prior 1021 images and of questionable significance. Scapho id and scapholunate distance appear unremarkable. No obvious degenerative changes in the carpal row bones. No erosions. First carpometacarpal joint is unremarkable. No significant ulnar variance. IMPRESSION: Small calcific density in the soft tissues between the distal radius and ulna questionable significan ce. No obvious acute fractures evident DATA REPOSITORY: RADIATION DOSE DELIVERED:
== END ==
PROVIDERS: PCP Nurse Practitioner Adult Health; Visit Provider Nurse Practitioner Adult Health
DX: M25.532 Pain in left wrist (principal); M79.89 Other specified soft tissue disorders
CPT/HCPCS: 73110

== ENCOUNTER 2022-03-05 15:40 | Outpatient (CLI) | payer OTHER, MEDICAID, SELFPAY ==
[2022-03-05 15:11] LABS: Albumin 4.2 g/dL (3.4-5.0); Anion Gap 11.6 mmol/L (3-11); BUN 49 mg/dL (7-18); CO2 22.4 mmol/L (21.0-32.0); CREATININE 2.7 mg/dL (0.70-1.30); Calcium 9.3 mg/dL (8.5-10.1); Chloride 104 mmol/L (98-107); Estimated GFR 25.84 (mL/min/1.73m2); Glucose 171 mg/dL (74-106); Potassium 5.1 mmol/L (3.5-5.1); Sodium 138 mmol/L (136-145)
[2022-03-05 23:05] LABS: PSA, Screening 5.8 ng/mL (<=4.5)
== END 2022-03-05 15:41 | disposition home or self-care (01) ==
LOC: LBO 15:44
PROVIDERS: Nurse Practitioner Gerontology; PCP Nurse Practitioner Adult Health; Visit Provider Internal Medicine Nephrology
DX: R97.20 Elevated prostate specific antigen [PSA] (principal); Z80.42 Family history of malignant neoplasm of prostate; E10.21 Type 1 diabetes mellitus with diabetic nephropathy; N18.30 Chronic kidney disease, stage 3 unspecified; E87.5 Hyperkalemia; Z12.5 Encounter for screening for malignant neoplasm of prostate
CPT/HCPCS: 36415; 80048; 84153; 82040

== ENCOUNTER → 2022-04-04 11:22 | Outpatient (BNVA) | payer OTHER, MEDICAID, SELFPAY | PROVIDERS: PCP Nurse Practitioner Adult Health; Referring Provider Nurse Practitioner Adult Health; Visit Provider Student in an Organized Health Care Education/Training Program | DX: M65.4 Radial styloid tenosynovitis [de Quervain] (principal); M25.532 Pain in left wrist | CPT/HCPCS: 20550; J1030 ==

== ENCOUNTER → 2022-04-29 14:16 | Outpatient (BNVA) | payer OTHER, MEDICAID, SELFPAY | PROVIDERS: PCP Nurse Practitioner Adult Health; Referring Provider Nurse Practitioner Adult Health; Visit Provider Nurse Practitioner Gerontology | DX: R97.20 Elevated prostate specific antigen [PSA] (principal); Z80.42 Family history of malignant neoplasm of prostate; Z85.528 Personal history of other malignant neoplasm of kidney; R39.89 Other symptoms and signs involving the genitourinary system; Q60.0 Renal agenesis, unilateral; N18.32 Chronic kidney disease, stage 3b; R79.89 Other specified abnormal findings of blood chemistry | CPT/HCPCS: 51798; 81003; 99214 ==

== ENCOUNTER 2022-06-10 18:06 | Emergency (ER) | payer OTHER, MEDICAID, SELFPAY ==
[2022-06-10] VITALS (23 sets, daily range): BP systolic 132–155; BP diastolic 83–112; PULSE 112–156; RESP 12–31; TEMP 35.7; O2SAT 92–96
--- NOTE | 2022-06-10 18:15 | RT.EKG_ITS ---
APPROVED REPORT Exam: Resting ECG Reason for Exam: tachycardia Patient Location: E HR:120 bpm ECG Measurements Heart Rate 120 AXIS DC 173 P 55 QRSd 104 QRS 49 QT 320 T 27 QTc 453 Conclusion Sinus tachycardia...rate> 99 Abnrm R prog, consider ASMI or lead placement...Q >30mS, diminished R, V1-V2
[2022-06-10] MEDS: Lactated Ringers 1,000 ML 1000 ML IV ×2 (18:26→21:30)
[2022-06-10 18:34] LABS: Abs Immature Grans 0.11 10^3/uL (0.0-0.06); Absolute Basophil Count 0.12 10^3/uL (0.0-0.2); Absolute Eosinophil Count 0.24 10^3/uL (0.0-0.7); Absolute Lymphocyte Count 3.58 10^3/uL (1.2-3.4); Absolute Monocyte Count 0.62 10^3/uL (0.1-0.8); Absolute Neutrophil Count 7.72 10^3/uL (1.2-6.7); Eosinophils % 1.9; HCT 47.1 % (40.0-50.0); HGB 15.7 g/dL (13.5-17.5); Immature Grans % 0.9; Lymphocytes % 28.9; MCH 28.1 pg (27.0-33.0); MCHC 33.3 % (32.0-36.0); MCV 84 fL (80-95); MPV 10.6 fL (8.0-11.0); Neutrophils % 62.3; Platelet Count 436 10^3/uL (130-400); RBC 5.58 10^6/uL (4.36-5.78); RDW 12.5 % (11.8-14.1); WBC 12.39 10^3/uL (4.4-10.8)
[2022-06-10 18:53] LABS: ALT 22 U/L (16-63); AST 11 U/L (15-37); Albumin 4.2 g/dL (3.4-5.0); Alkaline Phosphatase 140 U/L (46-116); Anion Gap 15.8 mmol/L (3-11); BUN 60 mg/dL (7-18); Bilirubin, Total 0.7 mg/dL (0.2-1.0); CO2 20.2 mmol/L (21.0-32.0); CREATININE 3.1 mg/dL (0.70-1.30); Calcium 9.1 mg/dL (8.5-10.1); Chloride 99 mmol/L (98-107); ETHANOL BLOOD 275.4 mg/dL (<10); Estimated GFR 21.89 (mL/min/1.73m2); Glucose 456 mg/dL (74-106); Potassium 4.3 mmol/L (3.5-5.1); Sodium 135 mmol/L (136-145); Total Protein 8.6 g/dL (6.4-8.2); Troponin I < 50 ng/L (<or=60)
--- NOTE | 2022-06-10 20:40 | ED.GENADUL_ITS ---
Discharge Plan Discharge Details Chief Complaint: ETOHWithdr Primary Care Provider: Mel Llamas ED Provider: Skinny Cage Home Meds and New Rx's Prescriptions: No Action acetaminophen [Tylenol] 325 mg tablet 975 mg PO ONCE PRN (DME) lancets Misc See Rx Instructions .MEDSUPPLY Rx Instructions: As directed to check blood glucose four times daily. On insulin. Dispense covered brand. metoprolol succinate 25 mg tablet extended release 24 hr 25 mg PO HS Qty: 90 3RF disulfiram 250 mg tablet 250 mg PO DAILY Qty: 90 1RF Lantus Solostar U-100 Insulin 100 unit/mL (3 mL) insulin pen 44 unit subcut HS MDD 46 units daily Qty: 45 3RF Rx Instructions: DMT1 duloxetine 60 mg capsule,delayed release(DR/EC) See Rx Instructions .ROUTE .COMPLEX Qty: 90 3RF Dose Instruction: TAKE 1 CAPSULE BY MOUTH EVERY MORNING Rx Instructions: TAKE 1 CAPSULE BY MOUTH EVERY MORNING (DME) Dexcom G6 Transmitter Device See Rx Instructions .ROUTE .COMPLEX Qty: 1 0RF Dose Instruction: USE DIRECTED Rx Instructions: USE DIRECTED Trulicity 0.75 mg/0.5 mL pen injector See Rx Instructions .ROUTE .COMPLEX Qty: 6 0RF Dose Instruction: INJECT 0.5ML UNDER THE SKIN ONCE WEEKLY Rx Instructions: INJECT 0.5ML UNDER THE SKIN ONCE WEEKLY insulin lispro [Humalog KwikPen Insulin] 100 unit/mL insulin pen 12 - 15 unit subcut TID PRN Patient Comments: 03/06/20 PER PT, SLIDING SCALE - MINIMUM OF 12U Rx Instructions: tid with meals per sliding to keep AIC below 7.0 chlorthalidone 15 mg tablet 7.5 mg PO DAILY Patient Comments: 05/29/21 visit lisinopril 2.5 mg tablet 2.5 mg PO DAILY Patient Comments: 05/29/21 office visit baking soda PO Rx Instructions: 1/2 teaspoon per day due to metabolic acidosis (DME) OneTouch Verio test strips Strip See Rx Instructions .ROUTE .COMPLEX Qty: 400 0RF Dose Instruction: USE TO TEST BLOOD GLUCOSE FOUR TIMES DAILY Rx Instructions: USE TO TEST BLOOD GLUCOSE FOUR TIMES DAILY (DME) Dexcom G6 Denture Finisher Misc See Rx Instructions .Route Qty: 1 0RF Rx Instructions: As directed (DME) Dexcom G6 Sensor Device See Rx Instructions .Route Qty: 9 3RF Rx Instructions: as directed for DM management, requiring Insulin injections 4X day atorvastatin 20 mg tablet See Rx Instructions .ROUTE .COMPLEX Qty: 90 3RF Dose Instruction: TAKE 1 TABLET BY MOUTH EVERY NIGHT AT BEDTIME FOR CHOLESTEROL OR DIABETES Rx Instructions: TAKE 1 TABLET BY MOUTH EVERY NIGHT AT BEDTIME FOR CHOLESTEROL OR DIABETES (DME) pen needle, diabetic [BD Ultra-Fine Doreen Pen Needle] 32 gauge x 5/32 needle See Rx Instructions .ROUTE .MEDSUPPLY Qty: 360 3RF Rx Instructions: BD Ultrafine 32G X 6mm, 4x/day for goal A1C<7 for E10.9 gabapentin 300 mg capsule See Rx Instructions .ROUTE .COMPLEX Qty: 90 0RF Dose Instruction: TAKE 1 CAPSULE BY MOUTH AT BEDTIME NEEDED FOR NERVE PAIN INLEGS Rx Instructions: TAKE 1 CAPSULE BY MOUTH AT BEDTIME NEEDED FOR NERVE PAIN INLEGS Medical Decision Making 2039 -- 61-year-old male with multiple medical problems including history of chronic kidney disease, alcohol use disorder in the past, here with alcohol intoxication having consumed alcohol last night and today. Patient is altered and appears acutely intoxicated. Patient also is depressed and has expressed passive suicidal thoughts to staff at [facility] today. He will need further psychiatric evaluation when medically stable. Patient given IV fluid bolus. Labs reviewed and creatinine is elevated. Alcohol level is 275. Anion gap acidosis noted at 15.8. Glucose is elevated at 456. Consider DKA vs alcoholic ketosis. On reassessment, patient continues to be tachycardic. I will give additional IV fluid bolus and plan to repeat chemistry. 2239 -- Repeat chemistry at 221 reveals improved anion gap improved now 12.8. Glucose 403. Patient has received 1800mL crystaloid. Will give insulin 14U regular SC. Plan to repeat chem at 2330. Lab Data Lab results reviewed: Yes I reviewed the patient's lab results. Labs: Laboratory Tests Range/Units 06/10/22 06/10/22 06/10/22 18:21 18:21 22:17 WBC (4.4-10.8) 10^3/uL 12.39 H RBC (4.36-5.78) 10^6/uL 5.58 Hgb (13.5-17.5) g/dL 15.7 Hct (40.0-50.0) % 47.1 MCV (80-95) fL 84 MCH (27.0-33.0) pg 28.1 MCHC (32.0-36.0) % 33.3 RDW (11.8-14.1) % 12.5 Plt Count (130-400) 10^3/uL 436 H MPV (8.0-11.0) fL 10.6 Immature Gran % 0.9 Neutrophils % 62.3 Lymphocytes % 28.9 Monocytes % 5.0 Eosinophils % 1.9 Basophils % 1.0 Nucleated RBC % (0.0-0.3) % 0.0 Absolute Neutrophils (1.2-6.7) 10^3/uL 7.72 H Absolute Lymphocytes (1.2-3.4) 10^3/uL 3.58 H Absolute Monocytes (0.1-0.8) 10^3/uL 0.62 Absolute Eosinophils (0.0-0.7) 10^3/uL 0.24 Absolute Basophils (0.0-0.2) 10^3/uL 0.12 Sodium (136-145) mmol/L 135 L Potassium (3.5-5.1) mmol/L 4.3 Chloride (98-107) mmol/L 99 Carbon Dioxide (21.0-32.0) mmol/L 20.2 L Anion Gap (3-11) mmol/L 15.8 H BUN (7-18) mg/dL 60 H Creatinine (0.70-1.30) mg/dL 3.1 H Est GFR (CKD-EPI 2020) (mL/min/1.73m2) 21.89 Glucose (74-106) mg/dL 456 H Calcium (8.5-10.1) mg/dL 9.1 Magnesium (1.8-2.4) mg/dL 2.0 Total Bilirubin (0.2-1.0) mg/dL 0.7 AST (15-37) U/L 11 L ALT (16-63) U/L 22 Alkaline Phosphatase (46-116) U/L 140 H Troponin I (<or=60) ng/L < 50 < 50 Total Protein (6.4-8.2) g/dL 8.6 H Albumin (3.4-5.0) g/dL 4.2 Ethyl Alcohol (<10) mg/dL 275.4 H Range/Units 06/10/22 22:17 WBC (4.4-10.8) 10^3/uL RBC (4.36-5.78) 10^6/uL Hgb (13.5-17.5) g/dL Hct (40.0-50.0) % MCV (80-95) fL MCH (27.0-33.0) pg MCHC (32.0-36.0) % RDW (11.8-14.1) % Plt Count (130-400) 10^3/uL MPV (8.0-11.0) fL Immature Gran % Neutrophils % Lymphocytes % Monocytes % Eosinophils % Basophils % Nucleated RBC % (0.0-0.3) % Absolute Neutrophils (1.2-6.7) 10^3/uL Absolute Lymphocytes (1.2-3.4) 10^3/uL Absolute Monocytes (0.1-0.8) 10^3/uL Absolute Eosinophils (0.0-0.7) 10^3/uL Absolute Basophils (0.0-0.2) 10^3/uL Sodium (136-145) mmol/L 136 Potassium (3.5-5.1) mmol/L 4.8 Chloride (98-107) mmol/L 101 Carbon Dioxide (21.0-32.0) mmol/L 22.2 Anion Gap (3-11) mmol/L 12.8 H BUN (7-18) mg/dL 58 H Creatinine (0.70-1.30) mg/dL 2.9 H Est GFR (CKD-EPI 2020) (mL/min/1.73m2) 23.72 Glucose (74-106) mg/dL 403 H Calcium (8.5-10.1) mg/dL 8.9 Magnesium (1.8-2.4) mg/dL Total Bilirubin (0.2-1.0) mg/dL AST (15-37) U/L ALT (16-63) U/L Alkaline Phosphatase (46-116) U/L Troponin I (<or=60) ng/L Total Protein (6.4-8.2) g/dL Albumin (3.4-5.0) g/dL Ethyl Alcohol (<10) mg/dL HPI General Mode of arrival: EMS . Date/Time Provider Initiated Documentation: 06/10/22 18:16 . Limitations to Documentation: altered mental status . Information obtained by: patient and EMS . HPI Narrative: 61-year-old male with prior history of alcohol use disorder, diabetes, solitary left kidney with history of renal cell cancer, chronic kidney disease, hypertension, hyperlipidemia, here with alcohol intoxication. Patient notes he has been sober for some time and started drinking alcohol again yesterday. He is consumed a heavy amount of alcohol yesterday and today. He is currently residing at [facility] from [facility] and noted that patient had expressed that he just wanted to end his life this morning while he was intoxicated. Patient does note he has been feeling depressed. He is not actively suicidal and feels safe here. Related Data Home Medications Medication Instructions Recorded Confirmed insulin lispro 100 unit/mL 12 - 15 unit subcut TID PRN 05/19/20 06/10/22 subcutaneous pen (Humalog KwikPen (U-100) Insulin) lancets 08/03/20 06/10/22 baking soda PO 05/29/21 06/06/22 chlorthalidone 15 mg tablet 7.5 mg PO DAILY 05/29/21 06/10/22 lisinopril 2.5 mg tablet 2.5 mg PO DAILY 05/29/21 06/10/22 blood sugar diagnostic (OneTouch #400 strips 06/01/21 06/10/22 Verio test strips) acetaminophen 325 mg tablet 975 mg PO ONCE PRN 06/06/21 06/10/22 (Tylenol) blood-glucose meter,continuous #1 ea 07/02/21 06/10/22 (Dexcom G6 Denture Finisher) blood-glucose sensor (Dexcom G6 #9 ea 07/02/21 06/10/22 Sensor device) atorvastatin 20 mg tablet See Rx Instructions .Route 10/19/21 06/10/22 .COMPLEX #90 tabs pen needle, diabetic 32 gauge x #360 ea 02/01/22 06/10/22 (BD Ultra-Fine Doreen Pen Needle) disulfiram 250 mg tablet 250 mg PO DAILY alcohol use 02/20/22 06/10/22 disorder #90 tabs duloxetine 60 mg capsule,delayed See Rx Instructions .Route 02/20/22 06/10/22 release .COMPLEX #90 caps insulin glargine 100 unit/mL (3 44 unit (0.44 mL) subcut HS #45 mL 02/20/22 06/10/22 mL) subcutaneous pen (Lantus Solostar U-100 Insulin) metoprolol succinate 25 mg 25 mg PO HS #90 tabs 02/20/22 06/10/22 tablet,extended release 24 hr gabapentin 300 mg capsule See Rx Instructions .Route 05/30/22 06/10/22 .COMPLEX #90 caps blood-glucose transmitter (Dexcom #1 ea 06/06/22 06/10/22 G6 Transmitter device) dulaglutide 0.75 mg/0.5 mL See Rx Instructions .Route 06/06/22 06/10/22 subcutaneous pen injector .COMPLEX #6 mL (Trulicity) Previous Rx's Medication Instructions Recorded blood sugar diagnostic (Ebylineuch #400 strips 06/01/21 Verio test strips) blood-glucose meter,continuous #1 ea 07/02/21 (Dexcom G6 Denture Finisher) blood-glucose sensor (Dexcom G6 #9 ea 07/02/21 Sensor device) atorvastatin 20 mg tablet See Rx Instructions .Route 10/19/21 .COMPLEX #90 tabs pen needle, diabetic 32 gauge x #360 ea 02/01/22 (BD Ultra-Fine Doreen Pen Needle) disulfiram 250 mg tablet 250 mg PO DAILY alcohol use 02/20/22 disorder #90 tabs duloxetine 60 mg capsule,delayed See Rx Instructions .Route 02/20/22 release .COMPLEX #90 caps insulin glargine 100 unit/mL (3 44 unit (0.44 mL) subcut HS #45 mL 02/20/22 mL) subcutaneous pen (Lantus Solostar U-100 Insulin) metoprolol succinate 25 mg 25 mg PO HS #90 tabs 02/20/22 tablet,extended release 24 hr gabapentin 300 mg capsule See Rx Instructions .Route 05/30/22 .COMPLEX #90 caps blood-glucose transmitter (Dexcom #1 ea 06/06/22 G6 Transmitter device) dulaglutide 0.75 mg/0.5 mL See Rx Instructions .Route 06/06/22 subcutaneous pen injector .COMPLEX #6 mL (Trulicity) Allergies Allergy/AdvReac Type Severity Reaction Status Date / Time lactose intolerant AdvReac Mild Diarrhea Uncoded 04/10/23 18:15 General Stated Complaint: ETOHWithdr GALILEO: 3 Review of Systems Unobtainable due to mental status Cardiovascular Cardiovascular: Denies chest pain Gastrointestinal Gastrointestinal: Denies abdominal pain Psychiatric Psychiatric: Reports depression PFSH All Active Problems De Quervain's tenosynovitis, left (Acute) 40 mg Depo-Medrol injection: 04/04/2022 Metabolic acidosis (Acute) Essential hypertension (Acute) CKD (chronic kidney disease) stage 4, GFR 15-29 ml/min (Acute) Alcohol use disorder, moderate, in early remission (Acute ~12/2021) Antabuse RX Lamellar macular hole of both eyes (Acute 10/25/21) Type 1 diabetes, controlled, with neuropathy (Chronic ~05/2017) Adult onset, diagnosed 05/[address] [facility] [address]. Douglas--recommend GLP1 Personal goal A1C <7% Stage 3b chronic kidney disease (CKD) (Chronic) [facility] Nephro initial consult 07/2020; DMT1 & Solitary partial L kidney s/p nephrectomy due to renal cell cancer Secondary hyperparathyroidism (Acute ~05/2021) 05/29/21 [facility] Nephrology Elevated PSA (Acute) Family history of prostate cancer (Chronic) F Tubular adenoma of colon (Chronic) 08/2018 colonoscopy [facility]; recall 5y Hyperlipidemia (Chronic) Hypertension (Chronic) RX Lisinopril (stopped due to creatinine) Medical History Alcohol intoxication (~12/02/21) Bilateral carpal tunnel syndrome Carpal tunnel syndrome on both sides +[facility] 05/08/2020 Chronic gingivitis, plaque induced Dentist History of alcohol use disorder since 1989 with intermittent sobriety History of elevated PSA Per [place] Records--01/14/2019 6.41, 04/28/2018 6.32; +Fam hx prostate cancer in F History of opioid abuse s/p surgeries; visiting brother 08/2021 ([facility] admission) History of renal cell cancer s/p nephrectomy Hyperkalemia (~05/2021) 05/29/21 [facility] Nephrology Lesion of bone of left forearm proximal radius lesion Osteoarthritis of elbows, bilateral Polyneuropathy associated with underlying disease DM Solitary left kidney [facility] Nephro (initial 07/2020); s/p nephrectomy on R 2004 renal cell cancer; partial nephrectomy on L 2007 Type 1 diabetes mellitus without complications Surgical History H/O arthroscopy of knee Remotely--both knees at some point; he cannot recall what, but thinks meniscal H/O partial nephrectomy (~04/2007) left History of nephrectomy, right (~03/2004) Renal cell cancer Family History Mother , 54yo breast cancer Alcohol abuse Breast cancer Depression Substance abuse Father , ~70yo prostate cancer Alcohol abuse Prostate cancer Substance abuse Sister , throat caner (nicotine use) Alcohol abuse Cancer Cervical Substance abuse Social History Smoking/Tobacco Use Status: Never Smoking risk assessment performed?: Yes Alcohol Intake: current Previous attempts at quittin Counseling given: Yes ([employer] [facility]) Drug use: Current Sobriety Substance use type: opiates Details: no IV drug use Adopted: No Caregiver/Support person: No Foster care: No Household members: other Details: Sober Living Facility Housing: other Number of Children: 4 number of grandchildren: 4 Communication Needs: None Education Level: college Do you need help understanding health information?: Rarely 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) Pets and animals: Yes Pets and animals: cat(s) Sexually active: No Do you think of yourself as: straight/heterosexual Current gender identity: male What is your relationship status?: How often do you talk on the phone with friends or family?: three or more times per week How often do you get together with friends or relatives?: three or more times per week How often do you attend congregation or caodaism services?: 4 or more times per year Do you belong to any clubs or organized social groups?: no Panel score (0-1 are the most socially isolated patients): 2 What type of physical activity do you participate in: walking, bicycling and other Details: EXERCISE ON STATIONARY BIKE Duration: < 15 minutes/day Frequency: 3-4 times per week Erin/Confucianist: Yazdanism Agree to transfusion: No Seatbelt use: always Helmet use: Yes Drive intox or ride w/intox hazardous materials driver: No Water heater temp set <120 deg: Yes Working smoke detector in home: Yes Fire extinguisher in home: Yes Do you feel safe at home: Yes Do you feel safe in your relationship?: Yes Exam Const General: cooperative and no acute distress HENMT Mouth: moist mucous membranes Eyes Conjunctivae: normal conjunctivae Sclera: normal sclerae Neck Neck: trachea midline and supple Resp Auscultation: clear to auscultation bilaterally, no rales, no rhonchi and no wheezes Cardio Rate: tachycardic Rhythm: regular rhythm GI Palpation: soft, not firm, no guarding, no masses, not rigid and nontender Skin General skin exam: no rashes or lesions noted Neuro General: patient alert, patient awake and tone normal Cognition: abnormal cognition Speech: abnormal speech slurred Motor: other (Simone) Extrem General: no edema Psych Appearance: grossly normal Course Vital Signs Vital signs: Vital Signs Temperature 35.7 C L 06/10/22 18:06 Pulse 156 H 06/10/22 18:06 Respiratory Rate 19 06/10/22 18:06 Blood Pressure 132/112 H 06/10/22 18:06 Temperature 35.7 C L 06/10/22 18:06 Pulse 113 H 06/10/22 20:01 Pulse 112 H 06/10/22 20:10 Respiratory Rate 23 06/10/22 20:10 Respiratory Effort Normal 06/10/22 18:13 Respiratory Pattern Normal 06/10/22 18:18 Blood Pressure 149/83 H 06/10/22 20:01 Blood Pressure Mean 100 06/10/22 20:01 Blood Pressure Position Sitting 06/10/22 18:06 Pulse Oximetry 95 06/10/22 19:30 Oxygen Delivery Method Room Air 06/10/22 18:06 Oxygen Flow Rate 0 06/10/22 18:06 Pain Level 0 06/10/22 18:06 Lab/Test Results Lab/Test Results: Laboratory Tests Range/Units 06/10/22 06/10/22 18:21 18:21 WBC (4.4-10.8) 10^3/uL 12.39 H RBC (4.36-5.78) 10^6/uL 5.58 Hgb (13.5-17.5) g/dL 15.7 Hct (40.0-50.0) % 47.1 MCV (80-95) fL 84 MCH (27.0-33.0) pg 28.1 MCHC (32.0-36.0) % 33.3 RDW (11.8-14.1) % 12.5 Plt Count (130-400) 10^3/uL 436 H MPV (8.0-11.0) fL 10.6 Immature Gran % 0.9 Neutrophils % 62.3 Lymphocytes % 28.9 Monocytes % 5.0 Eosinophils % 1.9 Basophils % 1.0 Nucleated RBC % (0.0-0.3) % 0.0 Absolute Neutrophils (1.2-6.7) 10^3/uL 7.72 H Absolute Lymphocytes (1.2-3.4) 10^3/uL 3.58 H Absolute Monocytes (0.1-0.8) 10^3/uL 0.62 Absolute Eosinophils (0.0-0.7) 10^3/uL 0.24 Absolute Basophils (0.0-0.2) 10^3/uL 0.12 Sodium (136-145) mmol/L 135 L Potassium (3.5-5.1) mmol/L 4.3 Chloride (98-107) mmol/L 99 Carbon Dioxide (21.0-32.0) mmol/L 20.2 L Anion Gap (3-11) mmol/L 15.8 H BUN (7-18) mg/dL 60 H Creatinine (0.70-1.30) mg/dL 3.1 H Est GFR (CKD-EPI 2020) (mL/min/1.73m2) 21.89 Glucose (74-106) mg/dL 456 H Calcium (8.5-10.1) mg/dL 9.1 Magnesium (1.8-2.4) mg/dL 2.0 Total Bilirubin (0.2-1.0) mg/dL 0.7 AST (15-37) U/L 11 L ALT (16-63) U/L 22 Alkaline Phosphatase (46-116) U/L 140 H Troponin I (<or=60) ng/L < 50 Total Protein (6.4-8.2) g/dL 8.6 H Albumin (3.4-5.0) g/dL 4.2 Ethyl Alcohol (<10) mg/dL 275.4 H PAWSS Have you Been Recently Intoxicated or Drunk Within the Last 30 days?: Yes Have you Ever Experienced Previous Episodes of Alcohol Withdrawal?: Yes Have you ever Experienced Withdrawal Seizures?: Yes Have you ever Experienced Delirium Tremens(DT)s?: Yes Have you ever undergone Alcohol Rehabilitation Treatment (i.e, inpt ot outpatient treatment programs)?: Yes Have you ever Experienced Blackouts?: Yes Have you ever Combined Alcohol with other Downers within the last 90 days?: No Have you ever Combined Alcohol with any other Substance of Abuse during the last 90 days?: No Result: 6
[2022-06-10 22:36] LABS: Anion Gap 12.8 mmol/L (3-11); BUN 58 mg/dL (7-18); CO2 22.2 mmol/L (21.0-32.0); CREATININE 2.9 mg/dL (0.70-1.30); Calcium 8.9 mg/dL (8.5-10.1); Chloride 101 mmol/L (98-107); Estimated GFR 23.72 (mL/min/1.73m2); Glucose 403 mg/dL (74-106); Potassium 4.8 mmol/L (3.5-5.1); Sodium 136 mmol/L (136-145)
[2022-06-10 22:49] LABS: Troponin I < 50 ng/L (<or=60)
[2022-06-10] MEDS: Insulin REGULAR-Human 100 UNITS/ML UNIT 14 UNITS SC (22:52)
[2022-06-10 23:58] LABS: Anion Gap 12.6 mmol/L (3-11); BUN 56 mg/dL (7-18); CO2 22.4 mmol/L (21.0-32.0); CREATININE 2.8 mg/dL (0.70-1.30); Calcium 8.8 mg/dL (8.5-10.1); Chloride 102 mmol/L (98-107); Estimated GFR 24.74 (mL/min/1.73m2); Glucose 371 mg/dL (74-106); Potassium 4.8 mmol/L (3.5-5.1); Sodium 137 mmol/L (136-145)
[2022-06-11] VITALS (50 sets, daily range): BP systolic 106–188; BP diastolic 59–126; PULSE 95–128; RESP 9–26; O2SAT 88–96
[2022-06-11] MEDS: Insulin Glargine 300 UNITS/3 ML PEN 44 UNITS SC (01:36)
[2022-06-11] MEDS: Metoprolol CR 25 MG TABCR PO (01:37)
--- NOTE | 2022-06-11 06:13 | NUR.NOTE ---
Nursing Note Called [facility] - spoke with Manav - he will be here about 0700 to pick pt up
--- NOTE | 2022-06-11 06:22 | ED.PROG_ITS ---
Date of service: 06/11/22 Time of Service: 06:24 Medical Decision Making Pt slept overnight and now awake caox4 with clear speech clinically sober. He doesn't recall making statements of vague si earlier and denies this now, states sometimes when he drinks excessively he will make vague statements. HE denies saunders ving any thoughts of self harm or harming others and declines [facility] eval which I feel is reasonable given now that he is sober he has no thoughts of self harm. HE requests d/c, has stable vitals, advised to f/u with pcp, limit alcohol use and return precautions given Lab Data Lab results reviewed: Yes I reviewed the patient's lab results. Sign Out Sign Out Data: Sign Out Comment: Follow-up on labs. Reassess for sobriety. Initiate psych evaluation when medically stable. Last updated by Skinny Cage MD at 06/10/22 23:43 Discharge Plan Disposition Patient Disposition: Home Condition: Stable Discharge Details Clinical Impression: Alcohol intoxication Primary Care Provider: Mel Llamas ED Provider: Froilan Pratt Home Meds and New Rx's Prescriptions: Continued acetaminophen [Tylenol] 325 mg tablet 975 mg PO ONCE PRN (DME) lancets Misc See Rx Instructions .MEDSUPPLY Rx Instructions: As directed to check blood glucose four times daily. On insulin. Dispense covered brand. metoprolol succinate 25 mg tablet extended release 24 hr 25 mg PO HS Qty: 90 3RF disulfiram 250 mg tablet 250 mg PO DAILY Qty: 90 1RF Lantus Solostar U-100 Insulin 100 unit/mL (3 mL) insulin pen 44 unit subcut HS MDD 46 units daily Qty: 45 3RF Rx Instructions: DMT1 duloxetine 60 mg capsule,delayed release(DR/EC) See Rx Instructions .ROUTE .COMPLEX Qty: 90 3RF Dose Instruction: TAKE 1 CAPSULE BY MOUTH EVERY MORNING Rx Instructions: TAKE 1 CAPSULE BY MOUTH EVERY MORNING (DME) [employer] G6 Transmitter Device See Rx Instructions .ROUTE .COMPLEX Qty: 1 0RF Dose Instruction: USE DIRECTED Rx Instructions: USE DIRECTED Trulicity 0.75 mg/0.5 mL pen injector See Rx Instructions .ROUTE .COMPLEX Qty: 6 0RF Dose Instruction: INJECT 0.5ML UNDER THE SKIN ONCE WEEKLY Rx Instructions: INJECT 0.5ML UNDER THE SKIN ONCE WEEKLY insulin lispro [Humalog KwikPen Insulin] 100 unit/mL insulin pen 12 - 15 unit subcut TID PRN Patient Comments: 03/06/20 PER PT, SLIDING SCALE - MINIMUM OF 12U Rx Instructions: tid with meals per sliding to keep AIC below 7.0 chlorthalidone 15 mg tablet 7.5 mg PO DAILY Patient Comments: 05/29/21 visit lisinopril 2.5 mg tablet 2.5 mg PO DAILY Patient Comments: 05/29/21 office visit baking soda PO Rx Instructions: 1/2 teaspoon per day due to metabolic acidosis (DME) OneTouch Verio test strips Strip See Rx Instructions .ROUTE .COMPLEX Qty: 400 0RF Dose Instruction: USE TO TEST BLOOD GLUCOSE FOUR TIMES DAILY Rx Instructions: USE TO TEST BLOOD GLUCOSE FOUR TIMES DAILY (DME) Dexcom G6 Conveyor System Operator Misc See Rx Instructions .Route Qty: 1 0RF Rx Instructions: As directed (DME) Dexcom G6 Sensor Device See Rx Instructions .Route Qty: 9 3RF Rx Instructions: as directed for DM management, requiring Insulin injections 4X day atorvastatin 20 mg tablet See Rx Instructions .ROUTE .COMPLEX Qty: 90 3RF Dose Instruction: TAKE 1 TABLET BY MOUTH EVERY NIGHT AT BEDTIME FOR CHOLESTEROL OR DIABETES Rx Instructions: TAKE 1 TABLET BY MOUTH EVERY NIGHT AT BEDTIME FOR CHOLESTEROL OR DIABETES (DME) pen needle, diabetic [BD Ultra-Fine Doreen Pen Needle] 32 gauge x 5/32 needle See Rx Instructions .ROUTE .MEDSUPPLY Qty: 360 3RF Rx Instructions: BD Ultrafine 32G X 6mm, 4x/day for goal A1C<7 for E10.9 gabapentin 300 mg capsule See Rx Instructions .ROUTE .COMPLEX Qty: 90 0RF Dose Instruction: TAKE 1 CAPSULE BY MOUTH AT BEDTIME NEEDED FOR NERVE PAIN INLEGS Rx Instructions: TAKE 1 CAPSULE BY MOUTH AT BEDTIME NEEDED FOR NERVE PAIN INLEGS Discharge Instructions Instructions: Alcohol Intoxication (ED) Additional Instructions: follow up with your primary care provider within 1-2 weeks if you feel more ill, have severe pain or difficulty breathing return to the emergency department
--- NOTE | 2022-06-11 07:21 | NUR.NOTE ---
Nursing Note: UDS cancelled, not obtained.
--- NOTE | 2022-06-11 07:32 | NUR.NOTE ---
Nursing Note: attempted to contact patient. He was discharged without his Lantus
== END 2022-06-11 07:04 | disposition home or self-care (01) ==
PROVIDERS: Student in an Organized Health Care Education/Training Program; Emergency Provider Emergency Medicine; PCP Nurse Practitioner Adult Health
DX: F10.129 Alcohol abuse with intoxication, unspecified (principal); F32.A Depression, unspecified; Y90.8 Blood alcohol level of 240 mg/100 ml or more; R79.89 Other specified abnormal findings of blood chemistry; N18.9 Chronic kidney disease, unspecified; E87.20 Acidosis, unspecified; E10.65 Type 1 diabetes mellitus with hyperglycemia; R00.0 Tachycardia, unspecified; E10.22 Type 1 diabetes mellitus with diabetic chronic kidney disease
CPT/HCPCS: 36415; 80048; 80053; 80307; 93005; 96360; 96361; 99284; 80320; 83735; 84484; 85025; 93010

== ENCOUNTER 2022-08-15 20:20 | Emergency (ER) | payer OTHER, MEDICAID, SELFPAY ==
[2022-08-15 20:36] VITALS: BP 154/87; PULSE 136; RESP 16; TEMP 36.6; O2SAT 99
--- NOTE | 2022-08-15 21:15 | DI.CT_ITS ---
Exam(s) CT ABDOMEN PELVIS WO EXAM: CT ABDOMEN PELVIS WO CLINICAL HISTORY: post-op scrotal pain hx of nephrectomy. TECHNIQUE: Imaging Protocol: Axial computed tomography images with coronal and sagittal reformatted images were created and reviewed CONTRAST MATERIAL: Intravenous: none Oral: None COMPARISON: No exams were available for comparison FINDINGS: VISUALIZED LUNG BASES: No nodules nor pleural effusions evident. ABDOMEN: There is no ascites. LIVER: There are no obvious focal hepatic lesions evident of this noninfused study. GALLBLADDER/BILIARY: There are gallstones on the dependent wall of the gallbladder fundus. Gallbladd er is mildly dilated. There is no pericholecystic fluid. There are no radiopaque calculi seen in th e nondilated CBD. PANCREAS: No evidence of pancreatic mass nor dilatation of the pancreatic duct. SPLEEN: Spleen is not enlarged. No obvious intrasplenic lesions. ADRENALS: Left adrenal gland unremarkable. There are surgical clips in the region of the right adren al gland which appears to be absent. KIDNEYS:The right kidney is also surgically absent. There is no abnormal mass nor adenopathy in the right renal bed. Left kidney exhibits normal size. No calculi nor hydronephrosis. However, in the superior pole left kidney there is a partially exophytic 2 cm cortical lesion which is isodense to th e adjacent cortex. Appears slightly denser than typical cyst. May be hemorrhagic cyst but cannot ex clude solid nodule. Require ultrasound. No other focal left kidney findings.. ABDOMINAL AORTA: Abdominal aorta is not enlarged. LYMPH NODES: There is no retroperitoneal nor paraaortic adenopathy. ABDOMINAL WALL: No evidence of significant anterior abdominal wall nor inguinal hernia. GI: There is no evidence of bowel obstruction, free air, nor abscess. PELVIS: LYMPH NODES: There is no intrapelvic nor inguinal adenopathy. GI: No evidence of appendicitis.No evidence of sigmoid diverticulitis. URINARY BLADDER: There is uniform thickening of the urinary bladder wall either due to under distensi on are hypertrophy or chronic cystitis. REPRODUCTIVE: Prostate gland appears enlarged. No obturator adenopathy evident. Seminal vesicles un remarkable. OSSEOUS: No significant osseous lesions. No fractures evident. Chronic-type disc space narrowing at L5-S1 level noted. IMPRESSION: 1. The right kidney and right adrenal gland are surgically absent. There are no masses in the right renal fossa. 2. There is a partially exophytic 2 cm cortical lesion in the upper left kidney which is isodense to adjacent parenchyma. Either represents a hemorrhagic cyst or small solid lesion. Further imaging re commended, starting with ultrasound. 3. There are small layering gallstones in the gallbladder fundus. The gallbladder is somewhat disten ded but does not appear grossly edematous and there is no pericholecystic fluid. Recommend follow-up ultrasound. 4. Uniform thickening of the urinary bladder wall and enlarged prostate gland. Bladder is not diste nded. RADIATION DOSE DELIVERED: 1,353mGy.cm Total DLP DATA REPOSITORY: All CT scans at this facility are submitted to the National Radiology Data Registry (NRDR) Dose Index Registry (DIR) with the [employer] ([employer]). RADIATION OPTIMIZATION: All CT scans at this facility use at least one of these dose optimization te chniques: automated exposure control; mA and/or kV adjustment per patient size (includes targeted exa ms where dose is matched to clinical indication); or iterative reconstruction.
[2022-08-15] MEDS: MORPHine 10 MG/ML VIAL 6 MG IVP (21:43)
[2022-08-15 21:55] LABS: Abs Immature Grans 0.06 10^3/uL (0.0-0.06); Absolute Basophil Count 0.07 10^3/uL (0.0-0.2); Absolute Eosinophil Count 0.61 10^3/uL (0.0-0.7); Absolute Lymphocyte Count 2.46 10^3/uL (1.2-3.4); Absolute Monocyte Count 0.77 10^3/uL (0.1-0.8); Absolute Neutrophil Count 6.17 10^3/uL (1.2-6.7); Basophils % 0.7; HCT 27.3 % (40.0-50.0); Immature Grans % 0.6; Lymphocytes % 24.3; MCH 25.7 pg (27.0-33.0); MCHC 30.8 % (32.0-36.0); MCV 84 fL (80-95); Monocytes % 7.6; Neutrophils % 60.8; RBC 3.27 10^6/uL (4.36-5.78); RDW 14.5 % (11.8-14.1); RDW-SD 43.6 fL; WBC 10.14 10^3/uL (4.4-10.8)
[2022-08-15 22:10] LABS: ALT 13 U/L (16-63); AST 19 U/L (15-37); Albumin 2.7 g/dL (3.4-5.0); Alkaline Phosphatase 74 U/L (46-116); BUN 49 mg/dL (7-18); Bilirubin, Total 0.4 mg/dL (0.2-1.0); C-Reactive Protein 2.83 mg/dL (0.0-0.3); CREATININE 2.9 mg/dL (0.70-1.30); Calcium 9.1 mg/dL (8.5-10.1); Chloride 107 mmol/L (98-107); Estimated GFR 23.72 (mL/min/1.73m2); Glucose 276 mg/dL (74-106); Potassium 4.5 mmol/L (3.5-5.1); Sodium 143 mmol/L (136-145); Total Protein 8.3 g/dL (6.4-8.2)
[2022-08-15 22:15] LABS: HGB 8.4 g/dL (13.5-17.5)
[2022-08-15 22:24] LABS: Procalcitonin 0.1 ng/mL
[2022-08-15 22:38] LABS: Bilirubin Negative (Negative); Blood Negative (Negative); Clarity Clear (Clear); Glucose Negative (Negative); Ketones Negative (Negative); Leukocyte Esterase Negative (Negative); Nitrite Negative (Negative); Specific Gravity 1.015 (1.005-1.025); Urobilinogen 0.2 mg/dL (Up to 0.2); pH 5.5 (5-8)
[2022-08-15 22:54] LABS: Bacteria Rare HPF (Negative); C & S Indicated? No; Crystals Negative HPF (Negative); Epithelial Cells Rare HPF (Negative); Mucus Negative (Negative); RBC 0-2 HPF (0-2); WBC 0-2 HPF (0-5)
[2022-08-15] MEDS: ACETAMINOPHEN 1,000 MG/100 ML BTL 400 MG IVPB (23:05)
[2022-08-15 23:13] VITALS: BP 119/64; PULSE 114; RESP 18; TEMP 36.6; O2SAT 99
--- NOTE | 2022-08-15 23:17 | DI.VRAD_ITS ---
PROCEDURE INFORMATION: Exam: CT Abdomen And Pelvis Without Contrast Exam date and time: 08/15/2022 10:25 PM Age: 61 years old Clinical indication: Other: Scrotal pain; Prior surgery; Surgery date: <1 month; Surgery type: PT states left testicle reconstructed one month prior. HX of nephrectomy; Additional info: Post-op scrotal pain TECHNIQUE: Imaging protocol: Computed tomography of the abdomen and pelvis without contrast. Radiation optimization: All CT scans at this facility use at least one of these dose optimization techniques: automated exposure control; mA and/or kV adjustment per patient size (includes targeted exams where dose is matched to clinical indication); or iterative reconstruction. COMPARISON: US RENAL 06/22/2021 2:02 PM FINDINGS: Liver: Normal. No mass. Gallbladder and bile ducts: Gallbladder is distended with a few tiny layering calcified gallstones. Pancreas: Normal. No ductal dilation. Spleen: Normal. No splenomegaly. Adrenal glands: Right adrenal gland is surgically absent. Left adrenal gland appears normal. Kidneys and ureters: Right kidney is surgically absent. 2 cm exophytic isodense cortical lesion noted in the upper left kidney. Left kidney is otherwise unremarkable. Stomach and bowel: A few proximal small bowel loops exhibit mild wall thickening suggesting enteritis. No evidence of bowel obstruction Appendix: The appendix is visualized and appears normal Intraperitoneal space: Unremarkable. No free air. No significant fluid collection. Vasculature: Unremarkable. No abdominal aortic aneurysm. Lymph nodes: Unremarkable. No enlarged lymph nodes. Urinary bladder: Urinary bladder wall appears somewhat thickened, possibly due to underdistention or hypertrophy. No inflammatory changes. Bladder is otherwise unremarkable. Reproductive: Unremarkable as visualized. Bones/joints: Significant degenerative changes noted at the lumbosacral junction producing moderate to severe narrowing of the bilateral L5 neural exit foramina. Moderate degenerative changes noted in the bony pelvis. No acute fracture. Soft tissues: Unremarkable. IMPRESSION: 1. Proximal small bowel wall thickening suggesting nonspecific enteritis. No evidence of bowel obstruction 2. Distended gallbladder and evidence of cholelithiasis 3. 2 cm cortical lesion in the upper left kidney which appears isodense to the adjacent pararenal parenchyma. This could represent a complicated cyst or small solid lesion. Further evaluation with renal protocol CT abdomen with contrast or MRI clinically feasible. 4. Significant degenerative changes of the lumbosacral junction Dictated and Authenticated by: Joshua Craven MD. Ordering:ILIA Gray MD
[2022-08-16] VITALS (10 sets, daily range): BP systolic 122–157; BP diastolic 77–89; PULSE 94–116; RESP 19; O2SAT 91–99
--- NOTE | 2022-08-16 01:11 | ED.GENADUL_ITS ---
Discharge Plan Disposition Patient Disposition: Home Discharge Details Clinical Impression: Post-operative pain Primary Care Provider: Mel Llamas ED Provider: Isaac Amador Home Meds and New Rx's Prescriptions: New oxycodone-acetaminophen [Percocet] 5-325 mg tablet 1 tab PO Q4H PRN (Reason: Post operative pain) Qty: 14 0RF Continued acetaminophen [Tylenol] 325 mg tablet 975 mg PO ONCE PRN (DME) lancets Misc See Rx Instructions .MEDSUPPLY Rx Instructions: As directed to check blood glucose four times daily. On insulin. Dispense covered brand. metoprolol succinate 25 mg tablet extended release 24 hr 25 mg PO HS Qty: 90 3RF disulfiram 250 mg tablet 250 mg PO DAILY Qty: 90 1RF Lantus Solostar U-100 Insulin 100 unit/mL (3 mL) insulin pen 44 unit subcut HS MDD 46 units daily Qty: 45 3RF Rx Instructions: DMT1 duloxetine 60 mg capsule,delayed release(DR/EC) See Rx Instructions .ROUTE .COMPLEX Qty: 90 3RF Dose Instruction: TAKE 1 CAPSULE BY MOUTH EVERY MORNING Rx Instructions: TAKE 1 CAPSULE BY MOUTH EVERY MORNING (DME) Dexcom G6 Transmitter Device See Rx Instructions .ROUTE .COMPLEX Qty: 1 0RF Dose Instruction: USE DIRECTED Rx Instructions: USE DIRECTED Trulicity 0.75 mg/0.5 mL pen injector See Rx Instructions .ROUTE .COMPLEX Qty: 6 0RF Dose Instruction: INJECT 0.5ML UNDER THE SKIN ONCE WEEKLY Rx Instructions: INJECT 0.5ML UNDER THE SKIN ONCE WEEKLY insulin lispro [Humalog KwikPen Insulin] 100 unit/mL insulin pen 12 - 15 unit subcut TID PRN Patient Comments: 03/06/20 PER PT, SLIDING SCALE - MINIMUM OF 12U Rx Instructions: tid with meals per sliding to keep AIC below 7.0 chlorthalidone 15 mg tablet 7.5 mg PO DAILY Patient Comments: 05/29/21 visit lisinopril 2.5 mg tablet 2.5 mg PO DAILY Patient Comments: 05/29/21 office visit baking soda PO Rx Instructions: 1/2 teaspoon per day due to metabolic acidosis (DME) OneTouch Verio test strips Strip See Rx Instructions .ROUTE .COMPLEX Qty: 400 0RF Dose Instruction: USE TO TEST BLOOD GLUCOSE FOUR TIMES DAILY Rx Instructions: USE TO TEST BLOOD GLUCOSE FOUR TIMES DAILY (DME) 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 G6 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 Misc See Rx Instructions .Route Qty: 1 0RF Rx Instructions: As directed (DME) Dexcom G6 Sensor Device See Rx Instructions .Route Qty: 9 3RF Rx Instructions: as directed for DM management, requiring Insulin injections 4X day atorvastatin 20 mg tablet See Rx Instructions .ROUTE .COMPLEX Qty: 90 3RF Dose Instruction: TAKE 1 TABLET BY MOUTH EVERY NIGHT AT BEDTIME FOR CHOLESTEROL OR DIABETES Rx Instructions: TAKE 1 TABLET BY MOUTH EVERY NIGHT AT BEDTIME FOR CHOLESTEROL OR DIABETES (DME) pen needle, diabetic [BD Ultra-Fine Doreen Pen Needle] 32 gauge x 5/32 needle See Rx Instructions .ROUTE .MEDSUPPLY Qty: 360 3RF Rx Instructions: BD Ultrafine 32G X 6mm, 4x/day for goal A1C<7 for E10.9 gabapentin 300 mg capsule See Rx Instructions .ROUTE .COMPLEX Qty: 90 0RF Dose Instruction: TAKE 1 CAPSULE BY MOUTH AT BEDTIME NEEDED FOR NERVE PAIN INLEGS Rx Instructions: TAKE 1 CAPSULE BY MOUTH AT BEDTIME NEEDED FOR NERVE PAIN INLEGS Discharge Instructions Additional Instructions: Your case was discussed in detail with the urology service at [facility]. As there is no evidence of infection or postoperative complication their recommendation was to discharge you to follow-up as an outpatient with them. Please call them in the morning and they will decide whether they want to see you in urology clinic or have you seen by plastic surgery or both. Please continue to monitor for signs of infection or breakdown. Please maintain excellent blood sugar control as this will be critical to the healing process Discharge Data Discharge Date/Time-TO BE ENTERED AT DEPARTURE: 08/16/22 09:26 Medical Decision Making On initial exam there is no obvious acute emergent condition. Patient was in a significant degree of pain now. I discussed the case with [facility] neurology in order to help formulate the work-up of the patient's acute onset of pain. Wound dehiscence was considered. Hematoma or seroma considered also repeat fluid collection or infection. These were all considerations. Torsion was a consideration although urology stated that this is very not likely the case. Conventional inguinal hernia was also consideration. Medical Records Medical records reviewed: Yes I reviewed the patient's medical records. Lab Data Lab results reviewed: Yes I reviewed the patient's lab results. HPI General Date/Time Provider Initiated Documentation: 08/15/22 20:51 . HPI Narrative: Patient greater than 1 month post scrotal reconstruction status post abscess formation. Was at [facility] for several weeks and had multiple surgeries including a skin graft by plastic surgery. Was then sent to [facility] for recovery and then he has been home for about a week. States that he was walking down the stairs when he felt a sudden pull at the surgical site and then severe pain. Since then he has had burning pain over the left scrotal area. States that he has been having some degree of drainage between bandage changes and that has not changed in character after this current incident. No hematuria no other issues. Related Data Home Medications Medication Instructions Recorded Confirmed insulin lispro 100 unit/mL 12 - 15 unit subcut TID PRN 05/19/20 08/15/22 subcutaneous pen (Humalog KwikPen (U-100) Insulin) lancets 08/03/20 06/10/22 baking soda PO 05/29/21 06/06/22 chlorthalidone 15 mg tablet 7.5 mg PO DAILY 05/29/21 08/15/22 lisinopril 2.5 mg tablet 2.5 mg PO DAILY 05/29/21 08/15/22 blood sugar diagnostic (OneTouch #400 strips 06/01/21 06/10/22 Verio test strips) acetaminophen 325 mg tablet 975 mg PO ONCE PRN 06/06/21 08/15/22 (Tylenol) blood-glucose meter,continuous #1 ea 07/02/21 06/10/22 (Dexcom G6 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) blood-glucose sensor (Dexcom G6 #9 ea 07/02/21 06/10/22 Sensor device) atorvastatin 20 mg tablet See Rx Instructions .Route 10/19/21 08/15/22 .COMPLEX #90 tabs pen needle, diabetic 32 gauge x #360 ea 02/01/22 06/10/22 (BD Ultra-Fine Doreen Pen Needle) disulfiram 250 mg tablet 250 mg PO DAILY alcohol use 02/20/22 08/15/22 disorder #90 tabs duloxetine 60 mg capsule,delayed See Rx Instructions .Route 02/20/22 08/15/22 release .COMPLEX #90 caps insulin glargine 100 unit/mL (3 44 unit (0.44 mL) subcut HS #45 mL 02/20/22 08/15/22 mL) subcutaneous pen (Lantus Solostar U-100 Insulin) metoprolol succinate 25 mg 25 mg PO HS #90 tabs 02/20/22 08/15/22 tablet,extended release 24 hr gabapentin 300 mg capsule See Rx Instructions .Route 05/30/22 08/15/22 .COMPLEX #90 caps blood-glucose transmitter (Dexcom #1 ea 06/06/22 06/10/22 G6 Transmitter device) dulaglutide 0.75 mg/0.5 mL See Rx Instructions .Route 06/06/22 08/15/22 subcutaneous pen injector .COMPLEX #6 mL ([employer]) oxycodone-acetaminophen 5 mg-325 1 tab PO Q4H PRN Post operative 08/16/22 mg tablet (Percocet) pain #14 tabs Previous Rx's Medication Instructions Recorded blood sugar diagnostic (OneTouch #400 strips 06/01/21 Verio test strips) blood-glucose meter,continuous #1 ea 07/02/21 (Dexcom G6 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) blood-glucose sensor (Dexcom G6 #9 ea 07/02/21 Sensor device) atorvastatin 20 mg tablet See Rx Instructions .Route 10/19/21 .COMPLEX #90 tabs pen needle, diabetic 32 gauge x #360 ea 02/01/22 (BD Ultra-Fine Doreen Pen Needle) disulfiram 250 mg tablet 250 mg PO DAILY alcohol use 02/20/22 disorder #90 tabs duloxetine 60 mg capsule,delayed See Rx Instructions .Route 02/20/22 release .COMPLEX #90 caps insulin glargine 100 unit/mL (3 44 unit (0.44 mL) subcut HS #45 mL 02/20/22 mL) subcutaneous pen (Lantus Solostar U-100 Insulin) metoprolol succinate 25 mg 25 mg PO HS #90 tabs 02/20/22 tablet,extended release 24 hr gabapentin 300 mg capsule See Rx Instructions .Route 05/30/22 .COMPLEX #90 caps blood-glucose transmitter (Dexcom #1 ea 06/06/22 G6 Transmitter device) dulaglutide 0.75 mg/0.5 mL See Rx Instructions .Route 06/06/22 subcutaneous pen injector .COMPLEX #6 mL (Trulicity) oxycodone-acetaminophen 5 mg-325 1 tab PO Q4H PRN Post operative 08/16/22 mg tablet (Percocet) pain #14 tabs Allergies Allergy/AdvReac Type Severity Reaction Status Date / Time lactose intolerant AdvReac Mild Diarrhea Uncoded 08/15/22 20:41 General Stated Complaint: GenMedical GALILEO: 3 Review of Systems Narrative: CONST: Negative for fever, body aches and chills. HENT: Negative for neck pain/stiffness, headache, congestion, sore throat, swelling. EYES: Negative for discharge/pain or vision changes. RESP: Negative for cough/hemoptysis and shortness of breath. CV: Negative chest pain, difficulty breathing, palpitations. ABD: Negative pain, nausea, vomiting. : MUSC: Negative for muscle aches, edema. SKIN: Negative rash, lesions/sores. NEURO: Negative headache, dizziness, weakness. PFSH All Active Problems Post-operative pain (Acute) Dehiscence of operative wound (Acute) Subsequent encounter Skin ulcer of scrotum (Acute) De Quervain's tenosynovitis, left (Acute) 40 mg Depo-Medrol injection: 04/04/2022 Metabolic acidosis (Acute) Essential hypertension (Acute) CKD (chronic kidney disease) stage 4, GFR 15-29 ml/min (Acute) Alcohol use disorder, moderate, in early remission (Acute ~12/2021) Antabuse RX Lamellar macular hole of both eyes (Acute 10/25/21) Type 1 diabetes, controlled, with neuropathy (Chronic ~05/2017) Adult onset, diagnosed 05/[address] [facility] [address]. Douglas--recommend GLP1 Personal goal A1C <7% Stage 3b chronic kidney disease (CKD) (Chronic) [facility] [place]; DMT1 & Solitary partial L kidney s/p nephrectomy due to renal cell cancer Secondary hyperparathyroidism (Acute ~05/2021) [place] [facility] [place] Elevated PSA (Acute) Family history of prostate cancer (Chronic) F Tubular adenoma of colon (Chronic) 08/2018 colonoscopy [facility]; recall 5y Hyperlipidemia (Chronic) Hypertension (Chronic) RX Lisinopril (stopped due to creatinine) Medical History Alcohol intoxication (~12/02/21) Bilateral carpal tunnel syndrome Carpal tunnel syndrome on both sides +[employer] [employer] 05/08/2020 Chronic gingivitis, plaque induced 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 admission) History of renal cell cancer s/p nephrectomy Hyperkalemia (~05/2021) [place]29/[place] [facility] [place] Lesion of bone of left forearm proximal radius lesion Osteoarthritis of elbows, bilateral Polyneuropathy associated with underlying disease DM Solitary left kidney [facility] [place] 07/2020); s/p nephrectomy on R 2004 renal cell cancer; partial nephrectomy on L 2007 Type 1 diabetes mellitus without complications Surgical History H/O arthroscopy of knee Remotely--both knees at some point; he cannot recall what, but thinks meniscal H/O partial nephrectomy (~04/2007) left H/O skin graft [facility] [place] Scrotal Abscess 07/15/22 Skin Graft with Bolster removal History of nephrectomy, right (~03/2004) Renal cell cancer Family History Mother , 54yo breast cancer Alcohol abuse Breast cancer Depression Substance abuse Father , ~70yo prostate cancer Alcohol abuse Prostate cancer Substance abuse Sister , throat caner (nicotine use) Alcohol abuse Cancer Cervical Substance abuse Social History Smoking/Tobacco Use Status: Never Smoking risk assessment performed?: Yes Alcohol Intake: current Previous attempts at quittin Counseling given: Yes ([facility]) Drug use: Current Sobriety Substance use type: opiates Details: no IV drug use Adopted: No Caregiver/Support person: No Foster care: No Household members: other Details: Sober Living Facility Housing: other Number of Children: 4 number of grandchildren: 4 Communication Needs: None Education Level: college Do you need help understanding health information?: Rarely 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) Pets and animals: Yes Pets and animals: cat(s) Sexually active: No Do you think of yourself as: straight/heterosexual Current gender identity: male What is your relationship status?: How often do you talk on the phone with friends or family?: three or more times per week How often do you get together with friends or relatives?: three or more times per week How often do you attend religion or jewish services?: 4 or more times per year Do you belong to any clubs or organized social groups?: no Panel score (0-1 are the most socially isolated patients): 2 What type of physical activity do you participate in: walking, bicycling and other Details: EXERCISE ON STATIONARY BIKE Duration: < 15 minutes/day Frequency: 3-4 times per week Erin/Sikh: Shinto Agree to transfusion: No Seatbelt use: always Helmet use: Yes Drive intox or ride w/intox escort car driver: No Water heater temp set <120 deg: Yes Working smoke detector in home: Yes Fire extinguisher in home: Yes Do you feel safe at home: Yes Do you feel safe in your relationship?: Yes Exam Narrative Exam Narrative: GENERAL APPEARANCE moderate distress, activity normal for age, well developed/ well nourished, no cyanosis, pallor, or diaphoresis. EYES lids/conjunctiva normal. EARS/NOSE/THROAT Mucous membranes moist, nares normal, lips/teeth normal uvula midline without oral pharyngeal erythema, exudate or swelling No lymphangitis/lymphedema. HEAD/NECK normocephalic atraumatic, no facial trauma, neck is supple. RESPIRATORY respiratory effort normal, speaks in full sentences, no tripod position, no accessory muscle use. Lungs clear to auscultation without rhonchi, wheezes, rales CARDIAC Regular rate and rhythm, no edema. ABDOMINAL Soft, ND/NT. No evidence of fluid wave. No pulsatile masses on exam, rebound tenderness, Rojas sign or pain over Mcburney's point. : Postoperative area of the left scrotum. Tissue graft looks well perfused with no dehiscence. No obvious fluid collection or subcutaneous gas no extending areas of cellulitis. No evidence of ecchymosis. MUSCLES/EXTREMITIES No abnormal range of motion, no swelling. SKIN Warm, pink and dry. No rashes, dermatoses, petechiae or lesions. NEUROLOGICAL Speech is clear and appropriate. Normal level of consciousness. Gait and coordination are normal. 5/5 strength in all extremities. PSYCH Normal mood and affect. Judgement/competence is appropriate Course Reevaluation(s) Time: 01:11 Reevaluation: No obvious source of infection as etiology of the patient's pain. Clinical exam reveals no evidence of wound dehiscence or subcutaneous gas. CT scan of the lower pelvis and scrotal area reveals no obvious hematoma or seroma or again subcutaneous gas consistent with the gangrenous infection. Per discussion with urology if there is no evidence of infection or wound dehiscence the patient can follow-up as an outpatient with them or with plastic surgery. Patient responded well to oral pain medication and I have discharged him on a short course of the same. Vital Signs Vital signs: Vital Signs Temperature 36.6 C 08/15/22 20:36 Pulse 136 H 08/15/22 20:36 Respiratory Rate 16 08/15/22 20:36 Blood Pressure 154/87 H 08/15/22 20:36 Pulse Oximetry 99 08/15/22 20:36 Temperature 36.6 C 08/15/22 23:13 Temperature Source Temporal Artery Scan 08/15/22 23:13 Pulse 114 H 08/15/22 23:13 Pulse Rhythm Regular 08/15/22 23:13 Pulse Strength Normal 08/15/22 23:13 Respiratory Rate 18 08/15/22 23:13 Respiratory Effort Normal 08/16/22 00:01 Respiratory Depth Normal 08/16/22 00:01 Respiratory Pattern Normal 08/16/22 00:01 Blood Pressure 119/64 08/15/22 23:13 Blood Pressure Mean 82 08/15/22 23:13 Blood Pressure Position Sitting 08/15/22 23:13 Pulse Oximetry 99 08/15/22 23:13 Oxygen Delivery Method Room Air 08/15/22 23:13 Oxygen Flow Rate 0 08/15/22 23:13 Pain Level 5 08/15/22 23:13 Lab/Test Results Lab/Test Results: Laboratory Tests Range/Units 08/15/22 08/15/22 08/15/22 21:39 21:39 21:39 WBC (4.4-10.8) 10^3/uL 10.14 RBC (4.36-5.78) 10^6/uL 3.27 L Hgb (13.5-17.5) g/dL 8.4 L Hct (40.0-50.0) % 27.3 L MCV (80-95) fL 84 MCH (27.0-33.0) pg 25.7 L MCHC (32.0-36.0) % 30.8 L RDW (11.8-14.1) % 14.5 H Plt Count (130-400) 10^3/uL MPV (8.0-11.0) fL Immature Gran % 0.6 Neutrophils % 60.8 Lymphocytes % 24.3 Monocytes % 7.6 Eosinophils % 6.0 Basophils % 0.7 Nucleated RBC % (0.0-0.3) % 0.0 Absolute Neutrophils (1.2-6.7) 10^3/uL 6.17 Absolute Lymphocytes (1.2-3.4) 10^3/uL 2.46 Absolute Monocytes (0.1-0.8) 10^3/uL 0.77 Absolute Eosinophils (0.0-0.7) 10^3/uL 0.61 Absolute Basophils (0.0-0.2) 10^3/uL 0.07 Sodium (136-145) mmol/L 143 Potassium (3.5-5.1) mmol/L 4.5 Chloride (98-107) mmol/L 107 Carbon Dioxide (21.0-32.0) mmol/L 21.0 Anion Gap (3-11) mmol/L 15.0 H BUN (7-18) mg/dL 49 H Creatinine (0.70-1.30) mg/dL 2.9 H Est GFR (CKD-EPI 2020) (mL/min/1.73m2) 23.72 Glucose (74-106) mg/dL 276 H Calcium (8.5-10.1) mg/dL 9.1 Total Bilirubin (0.2-1.0) mg/dL 0.4 AST (15-37) U/L 19 ALT (16-63) U/L 13 L Alkaline Phosphatase (46-116) U/L 74 C-Reactive Protein (0.0-0.3) mg/dL 2.83 H Total Protein (6.4-8.2) g/dL 8.3 H Albumin (3.4-5.0) g/dL 2.7 L Procalcitonin ng/mL 0.1 Urine Color (Yellow) Urine Clarity (Clear) Urine pH (5-8) Ur Specific Inez (1.005-1.025) Urine Protein (Negative) mg/dL Urine Ketones (Negative) mg/dL Urine Blood (Negative) Urine Nitrite (Negative) Urine Bilirubin (Negative) Urine Urobilinogen (Up to 0.2) mg/dL Ur Leukocyte Esterase (Negative) Urine RBC (0-2) HPF Urine WBC (0-5) HPF Ur Epithelial Cells (Negative) HPF Urine Crystals (Negative) HPF Urine Bacteria (Negative) HPF Urine Mucus (Negative) Ur Culture Indicated? Urine Glucose (Negative) mg/dL Range/Units 08/15/22 22:30 WBC (4.4-10.8) 10^3/uL RBC (4.36-5.78) 10^6/uL Hgb (13.5-17.5) g/dL Hct (40.0-50.0) % MCV (80-95) fL MCH (27.0-33.0) pg MCHC (32.0-36.0) % RDW (11.8-14.1) % Plt Count (130-400) 10^3/uL MPV (8.0-11.0) fL Immature Gran % Neutrophils % Lymphocytes % Monocytes % Eosinophils % Basophils % Nucleated RBC % (0.0-0.3) % Absolute Neutrophils (1.2-6.7) 10^3/uL Absolute Lymphocytes (1.2-3.4) 10^3/uL Absolute Monocytes (0.1-0.8) 10^3/uL Absolute Eosinophils (0.0-0.7) 10^3/uL Absolute Basophils (0.0-0.2) 10^3/uL Sodium (136-145) mmol/L Potassium (3.5-5.1) mmol/L Chloride (98-107) mmol/L Carbon Dioxide (21.0-32.0) mmol/L Anion Gap (3-11) mmol/L BUN (7-18) mg/dL Creatinine (0.70-1.30) mg/dL Est GFR (CKD-EPI 2020) (mL/min/1.73m2) Glucose (74-106) mg/dL Calcium (8.5-10.1) mg/dL Total Bilirubin (0.2-1.0) mg/dL AST (15-37) U/L ALT (16-63) U/L Alkaline Phosphatase (46-116) U/L C-Reactive Protein (0.0-0.3) mg/dL Total Protein (6.4-8.2) g/dL Albumin (3.4-5.0) g/dL Procalcitonin ng/mL Urine Color (Yellow) Yellow Urine Clarity (Clear) Clear Urine pH (5-8) 5.5 Ur Specific Inez (1.005-1.025) 1.015 Urine Protein (Negative) mg/dL 100 H Urine Ketones (Negative) mg/dL Negative Urine Blood (Negative) Negative Urine Nitrite (Negative) Negative Urine Bilirubin (Negative) Negative Urine Urobilinogen (Up to 0.2) mg/dL 0.2 Ur Leukocyte Esterase (Negative) Negative Urine RBC (0-2) HPF 0-2 Urine WBC (0-5) HPF 0-2 Ur Epithelial Cells (Negative) HPF Rare Urine Crystals (Negative) HPF Negative Urine Bacteria (Negative) HPF Rare Urine Mucus (Negative) Negative Ur Culture Indicated? No Urine Glucose (Negative) mg/dL Negative PAWSS Pt Consumed Any Amount of Alcohol Within the Last 30 days OR had positive DAREK Upon Admission: No
[2022-08-16] MEDS: oxyCODONE 5 mg/Acetaminophen 325 mg TAB 2 TAB PO ×2 (01:39→06:33)
== END 2022-08-16 09:26 | disposition home or self-care (01) ==
PROVIDERS: Emergency Provider Emergency Medicine; PCP Nurse Practitioner Adult Health
DX: G89.18 Other acute postprocedural pain (principal); Z98.890 Other specified postprocedural states; E10.40 Type 1 diabetes mellitus with diabetic neuropathy, unspecified
CPT/HCPCS: 80053; 84145; 96365; 96375; 99284; 74176; 81003; 81015; 85025; 86140; J0131; J2270

== ENCOUNTER 2022-08-30 15:40 | Emergency (ER) | payer OTHER, MEDICAID, SELFPAY ==
[2022-08-30 15:47] VITALS: BP 132/86; PULSE 90; RESP 18; TEMP 36.8; O2SAT 98
--- NOTE | 2022-08-30 16:04 | ED.GENADUL_ITS ---
Discharge Plan Disposition Patient Disposition: Home Condition: Good Discharge Details Clinical Impression: Finger laceration Primary Care Provider: Mel Llamas ED Provider: Jackelyn Lance Home Meds and New Rx's Prescriptions: Continued acetaminophen [Tylenol] 325 mg tablet 975 mg PO ONCE PRN (DME) lancets Misc See Rx Instructions .MEDSUPPLY Rx Instructions: As directed to check blood glucose four times daily. On insulin. Dispense covered brand. metoprolol succinate 25 mg tablet extended release 24 hr 25 mg PO HS Qty: 90 3RF disulfiram 250 mg tablet 250 mg PO DAILY Qty: 90 1RF Lantus Solostar U-100 Insulin 100 unit/mL (3 mL) insulin pen 44 unit subcut HS MDD 46 units daily Qty: 45 3RF Rx Instructions: DMT1 duloxetine 60 mg capsule,delayed release(DR/EC) See Rx Instructions .ROUTE .COMPLEX Qty: 90 3RF Dose Instruction: TAKE 1 CAPSULE BY MOUTH EVERY MORNING Rx Instructions: TAKE 1 CAPSULE BY MOUTH EVERY MORNING Trulicity 0.75 mg/0.5 mL pen injector See Rx Instructions .ROUTE .COMPLEX Qty: 6 0RF Dose Instruction: INJECT 0.5ML UNDER THE SKIN ONCE WEEKLY Rx Instructions: INJECT 0.5ML UNDER THE SKIN ONCE WEEKLY naproxen 375 mg tablet,delayed release (DR/EC) 375 mg PO .with dinner Qty: 14 0RF Rx Instructions: Post-op pain oxycodone 5 mg tablet 2.5 - 5 mg PO BID MDD 10mg/24h PRN (Reason: pain) Qty: 10 0RF Rx Instructions: SEVERE post-op pain (final RX) (DME) OneTouch Verio test strips Strip See Rx Instructions .ROUTE .COMPLEX Qty: 400 0RF Dose Instruction: USE TO TEST BLOOD GLUCOSE FOUR TIMES DAILY Rx Instructions: USE TO TEST BLOOD GLUCOSE FOUR TIMES DAILY insulin lispro [Humalog KwikPen Insulin] 100 unit/mL insulin pen 12 - 15 unit subcut TID PRN Patient Comments: 03/06/20 PER PT, SLIDING SCALE - MINIMUM OF 12U Rx Instructions: tid with meals per sliding to keep AIC below 7.0 chlorthalidone 15 mg tablet 7.5 mg PO DAILY Patient Comments: 05/29/21 visit lisinopril 2.5 mg tablet 2.5 mg PO DAILY Patient Comments: 05/29/21 office visit baking soda PO Rx Instructions: 1/2 teaspoon per day due to metabolic acidosis atorvastatin 20 mg tablet See Rx Instructions .ROUTE .COMPLEX Qty: 90 3RF Dose Instruction: TAKE 1 TABLET BY MOUTH EVERY NIGHT AT BEDTIME FOR CHOLESTEROL OR DIABETES Rx Instructions: TAKE 1 TABLET BY MOUTH EVERY NIGHT AT BEDTIME FOR CHOLESTEROL OR DIABETES (DME) pen needle, diabetic [BD Ultra-Fine Doreen Pen Needle] 32 gauge x 5/32 needle See Rx Instructions .ROUTE .MEDSUPPLY Qty: 360 3RF Rx Instructions: BD Ultrafine 32G X 6mm, 4x/day for goal A1C<7 for E10.9 gabapentin 300 mg capsule See Rx Instructions .ROUTE .COMPLEX Qty: 90 0RF Dose Instruction: TAKE 1 CAPSULE BY MOUTH AT BEDTIME NEEDED FOR NERVE PAIN INLEGS Rx Instructions: TAKE 1 CAPSULE BY MOUTH AT BEDTIME NEEDED FOR NERVE PAIN INLEGS (DME) Dexcom G7 Chaser Apprentice Misc See Rx Instructions .ROUTE Qty: 1 0RF Rx Instructions: As directed (DME) Dexcom G7 Sensor Device See Rx Instructions .ROUTE Qty: 1 0RF Rx Instructions: As directed Discharge Instructions Instructions: Finger Laceration (ED) Additional Instructions: Please keep wound clean, dry, covered. Keep bandaid over this to keep from picking/pulling at the adhesive. Do not apply ointment over the wound. Monitor for signs of infection including redness, warmth, swelling, drainage, increased pain. If you develop these or other new/worsening symptoms, please seek care urgently once again. Please keep the brace on to promote healing and prevent excess pressure on the wound. P Referrals: Mel Llamas CASHIER ASSISTANT [Primary Care Provider] - Medical Decision Making Patient is a pleasant [id number] 62-year-old male presenting today with chief complaint of laceration to left index finger. 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 Laceration is to the radial side of the right index finger just distal to the PIP joint. Denies any numbness or paresthesias. His tetanus is up-to-date. He denies other injury at the time of the incident and has had good range of motion since. On exam, patient appears nontoxic. Resting comfortably. He has a 1.5 cm linear laceration extending horizontally over the finger as described above. Sensation is intact distally. He has full range of motion and is ligamentously intact against resistance. No deep structure involvement is visualized. Wound is fairly superficial and lies in a well approximated fashion. Patient I discussed closure options. Given how well the wound edges laid together, I do feel that this would close well with adhesive. As the patient is moving, we did discuss utilizing brace in the healing process to prevent excessive movement or pressure on the wound. Patient I discussed wound closure options. We discussed risk and benefits of each decided upon adhesive. We will also apply a splint to help prevent undue pressure particular while he is moving on the wound. Is not directly over the joint but certainly has good proximity to the DIP joint. We discussed discussed risk/benefits as well as expected procedural steps. He voiced understanding and wished to proceed. Using standard sterile technique, the wound was copiously irrigated explored to base in a bloodless field no foreign body or debris noted. A finger tourniquet was utilized. Thin layer of adhesive was applied, wound edges reapproximated well. Will apply a Band-Aid to help prevent any picking or damage to the adhesive given the location. We will apply a finger splint to help to immobilize the DIP joint. Patient I discussed wound care as well as care of the adhesive. Advised no soaking, no ointment application. We discussed signs symptoms of infection and when to seek care urgently once again. All his questions and concerns were addressed and he is in agreement this plan. HPI General Date/Time Provider Initiated Documentation: 08/30/22 15:52 . Limitations to Documentation: no limitations . Information obtained by: patient and RN notes reviewed . History of Present Illness 62 year old M presents to the emergency department with the chief complaint of left index finger laceration, described as mild, with intensity rated at 2. Quality is described as aching, and is localized to the left and upper extremity. Patient reports no radiation. Patient started experiencing this minute(s) and it has been constant. No relieving factors improve symptom(s), No exacerbating factors reported . Patient notes no other s ymptoms.. Patient did receive the following treatments prior to arrival, none Related Data Home Medications Medication Instructions Recorded Confirmed insulin lispro 100 unit/mL 12 - 15 unit subcut TID PRN 05/19/20 08/30/22 subcutaneous pen (Humalog KwikPen (U-100) Insulin) lancets 08/03/20 08/30/22 baking soda PO 05/29/21 08/21/22 chlorthalidone 15 mg tablet 7.5 mg PO DAILY 05/29/21 08/30/22 lisinopril 2.5 mg tablet 2.5 mg PO DAILY 05/29/21 08/30/22 acetaminophen 325 mg tablet 975 mg PO ONCE PRN 06/06/21 08/30/22 (Tylenol) atorvastatin 20 mg tablet See Rx Instructions .Route 10/19/21 08/30/22 .COMPLEX #90 tabs pen needle, diabetic 32 gauge x #360 ea 02/01/22 08/30/22 (BD Ultra-Fine Doreen Pen Needle) disulfiram 250 mg tablet 250 mg PO DAILY alcohol use 02/20/22 08/30/22 disorder #90 tabs duloxetine 60 mg capsule,delayed See Rx Instructions .Route 02/20/22 08/30/22 release .COMPLEX #90 caps insulin glargine 100 unit/mL (3 44 unit (0.44 mL) subcut HS #45 mL 02/20/22 08/30/22 mL) subcutaneous pen (Lantus Solostar U-100 Insulin) metoprolol succinate 25 mg 25 mg PO HS #90 tabs 02/20/22 08/30/22 tablet,extended release 24 hr gabapentin 300 mg capsule See Rx Instructions .Route 05/30/22 08/30/22 .COMPLEX #90 caps dulaglutide 0.75 mg/0.5 mL See Rx Instructions .Route 06/06/22 08/30/22 subcutaneous pen injector .COMPLEX #6 mL (Trulicity) blood sugar diagnostic (OneTouch #400 strips 08/21/22 08/30/22 Verio test strips) naproxen 375 mg tablet,delayed 375 mg PO .with dinner #14 tabs 08/21/22 08/30/22 release oxycodone 5 mg tablet 2.5 - 5 mg PO BID PRN pain #10 tabs 08/21/22 08/30/22 blood-glucose meter,continuous #1 ea 08/26/22 08/30/22 (Dexcom G7 Chaser Apprentice) blood-glucose sensor (Dexcom G7 #1 ea 08/26/22 08/30/22 Sensor device) Previous Rx's Medication Instructions Recorded atorvastatin 20 mg tablet See Rx Instructions .Route 10/19/21 .COMPLEX #90 tabs pen needle, diabetic 32 gauge x #360 ea 02/01/22 (BD Ultra-Fine Doreen Pen Needle) disulfiram 250 mg tablet 250 mg PO DAILY alcohol use 02/20/22 disorder #90 tabs duloxetine 60 mg capsule,delayed See Rx Instructions .Route 02/20/22 release .COMPLEX #90 caps insulin glargine 100 unit/mL (3 44 unit (0.44 mL) subcut HS #45 mL 02/20/22 mL) subcutaneous pen (Lantus Solostar U-100 Insulin) metoprolol succinate 25 mg 25 mg PO HS #90 tabs 02/20/22 tablet,extended release 24 hr gabapentin 300 mg capsule See Rx Instructions .Route 05/30/22 .COMPLEX #90 caps dulaglutide 0.75 mg/0.5 mL See Rx Instructions .Route 06/06/22 subcutaneous pen injector .COMPLEX #6 mL (Trulicity) blood sugar diagnostic (OneTouch #400 strips 08/21/22 Verio test strips) naproxen 375 mg tablet,delayed 375 mg PO .with dinner #14 tabs 08/21/22 release oxycodone 5 mg tablet 2.5 - 5 mg PO BID PRN pain #10 tabs 08/21/22 blood-glucose meter,continuous #1 ea 08/26/22 (Dexcom G7 Chaser Apprentice) blood-glucose sensor (Dexcom G7 #1 ea 08/26/22 Sensor device) Allergies Allergy/AdvReac Type Severity Reaction Status Date / Time lactose intolerant AdvReac Mild Diarrhea Uncoded 08/21/22 08:46 General Stated Complaint: Laceration GALILEO: 4 Review of Systems Constitutional Constitutional: Reports as per HPI, Denies chills and Denies fever(s) Musculoskeletal Musculoskeletal: Reports as per HPI Integumentary/Breasts Skin/Breast: Reports as per HPI Neurologic Neurologic: Reports as per HPI, Denies sensory deficit and Denies paresthesias PFSH All Active Problems (Updated 08/30/22 @ 16:31 by CONNOR Gamboa) Finger laceration (Acute) Post-operative pain (Acute) Dehiscence of operative wound (Acute) Subsequent encounter Skin ulcer of scrotum (Acute) De Quervain's tenosynovitis, left (Acute) 40 mg Depo-Medrol injection: 04/04/2022 Metabolic acidosis (Acute) Essential hypertension (Acute) CKD (chronic kidney disease) stage 4, GFR 15-29 ml/min (Acute) Alcohol use disorder, moderate, in early remission (Acute ~12/2021) Antabuse RX Lamellar macular hole of both eyes (Acute 10/25/21) Type 1 diabetes, controlled, with neuropathy (Chronic ~05/2017) Adult onset, diagnosed 05/2017 [facility] [address] Dr. Douglas--recommend GLP1 Personal goal A1C <7% Stage 3b chronic kidney disease (CKD) (Chronic) [facility] Nephro initial consult 07/2020; DMT1 & Solitary partial L kidney s/p nephrectomy due to renal cell cancer Secondary hyperparathyroidism (Acute ~05/2021) 05/29/21 [facility] Nephrology Elevated PSA (Acute) Family history of prostate cancer (Chronic) F Tubular adenoma of colon (Chronic) 08/2018 colonoscopy [facility]; recall 5y Hyperlipidemia (Chronic) Hypertension (Chronic) RX Lisinopril (stopped due to creatinine) Medical History Alcohol intoxication (~12/02/21) Bilateral carpal tunnel syndrome Carpal tunnel syndrome on both sides +[facility] 05/08/2020 Chronic gingivitis, plaque induced 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 History of alcohol use disorder since 1989 with intermittent sobriety History of elevated PSA Per [facility]--01/14/2019 6.41, 04/28/2018 6.32; +Fam hx prostate cancer in F History of opioid abuse s/p surgeries; visiting brother 08/2021 ([facility] admission) History of renal cell cancer s/p nephrectomy Hyperkalemia (~05/2021) 05/29/21 [facility] Nephrology Lesion of bone of left forearm proximal radius lesion Osteoarthritis of elbows, bilateral Polyneuropathy associated with underlying disease DM Solitary left kidney [facility] Nephro (initial 07/2020); s/p nephrectomy on R 2004 renal cell cancer; partial nephrectomy on L 2007 Type 1 diabetes mellitus without complications Surgical History H/O arthroscopy of knee Remotely--both knees at some point; he cannot recall what, but thinks meniscal H/O partial nephrectomy (~04/2007) left H/O skin graft [facility] 07/12/22 Scrotal Abscess 07/15/22 Skin Graft with Bolster removal History of nephrectomy, right (~03/2004) Renal cell cancer Family History Mother , 54yo breast cancer Alcohol abuse Breast cancer Depression Substance abuse Father , ~70yo prostate cancer Alcohol abuse Prostate cancer Substance abuse Sister , throat caner (nicotine use) Alcohol abuse Cancer Cervical Substance abuse Social History Smoking/Tobacco Use Status: Never Smoking risk assessment performed?: Yes Alcohol Intake: current Alcohol Intake frequency: a few times a month Previous attempts at quittin Counseling given: Yes ([facility]) Drug use: Current Sobriety Substance use type: opiates Details: no IV drug use Adopted: No Caregiver/Support person: No Foster care: No Household members: other Details: Sober Living Facility Housing: other Number of Children: 4 number of grandchildren: 4 Communication Needs: None Education Level: college Do you need help understanding health information?: Rarely 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: RETIRED [employer] (ON [employer]I) Pets and animals: Yes Pets and animals: cat(s) Sexually active: No Do you think of yourself as: straight/heterosexual Current gender identity: male What is your relationship status?: How often do you talk on the phone with friends or family?: three or more times per week How often do you get together with friends or relatives?: three or more times per week How often do you attend islam or baptism services?: 4 or more times per year Do you belong to any clubs or organized social groups?: no Panel score (0-1 are the most socially isolated patients): 2 What type of physical activity do you participate in: walking, bicycling and other Details: EXERCISE ON STATIONARY BIKE Duration: < 15 minutes/day Frequency: 3-4 times per week Erin/Jainism: Religious Agree to transfusion: No Seatbelt use: always Helmet use: Yes Drive intox or ride w/intox laundry route driver: No Water heater temp set <120 deg: Yes Working smoke detector in home: Yes Fire extinguisher in home: Yes Do you feel safe at home: Yes Do you feel safe in your relationship?: Yes Exam Const General: cooperative, healthy appearing, comfortable, no acute distress and well developed Nutritional Appearance: average body habitus and well nourished Orientation: alert and awake Resp Effort & Inspection: normal respiratory effort, able to speak in complete sentences and no respiratory distress Cardio Rate: regular rate Rhythm: regular rhythm Skin Trauma: laceration Neuro General: patient alert and patient awake Cognition: normal cognition Speech: speech normal Gait: normal gait Sensory Exam: no sensory deficits noted Extrem Hand/finger images: 1. Horizontal laceration distal to the DIP joint of the left index finger along the radial side. No deep structure involvement. Full range of motion. Sensation is intact. Intact capillary refill. No active bleeding. Psych Appearance: grossly normal and well kempt Mental Status: mental status grossly normal Speech and Movement: speech and movement normal Course Vital Signs Vital signs: Vital Signs Temperature 36.8 C 08/30/22 15:47 Pulse 90 08/30/22 15:47 Respiratory Rate 18 08/30/22 15:47 Blood Pressure 132/86 08/30/22 15:47 Pulse Oximetry 98 08/30/22 15:47 Temperature 36.8 C 08/30/22 15:47 Temperature Source Oral 08/30/22 15:47 Pulse 90 08/30/22 15:47 Respiratory Rate 18 08/30/22 15:47 Respiratory Effort Normal, Non-Labored 08/30/22 15:47 Blood Pressure 132/86 08/30/22 15:47 Blood Pressure Position Sitting 08/30/22 15:47 Pulse Oximetry 98 08/30/22 15:47 Oxygen Delivery Method Room Air 08/30/22 15:47 Oxygen Flow Rate 0 08/30/22 15:47 Pain Level 2 08/30/22 15:47
== END 2022-08-30 16:43 | disposition home or self-care (01) ==
PROVIDERS: Emergency Provider Physician Assistant; PCP Nurse Practitioner Adult Health
DX: S61.211A Laceration without foreign body of left index finger without damage to nail, initial encounter (principal); I12.9 Hypertensive chronic kidney disease with stage 1 through stage 4 chronic kidney disease, or unspecified chronic kidney disease; E10.22 Type 1 diabetes mellitus with diabetic chronic kidney disease; N18.4 Chronic kidney disease, stage 4 (severe); E21.0 Primary hyperparathyroidism; Z90.5 Acquired absence of kidney; W26.0XXA Contact with knife, initial encounter
CPT/HCPCS: 12001; 99282

== ENCOUNTER 2022-09-06 17:35 | Inpatient (IN) | payer OTHER, MEDICAID, SELFPAY ==
[2022-09-06] VITALS (36 sets, daily range): BP systolic 98–199; BP diastolic 50–161; PULSE 108–131; RESP 15–40; TEMP 36.6; O2SAT 96–100
--- NOTE | 2022-09-06 17:30 | RT.EKG_ITS ---
APPROVED REPORT Exam: Resting ECG Reason for Exam: Chest pain Patient Location: E HR:126 bpm ECG Measurements Heart Rate 126 AXIS NE 134 P 67 QRSd 96 QRS 73 QT 318 T -18 QTc 461 Conclusion Sinus tachycardia...rate> 99 sinus tachy, normal axis, normal intervals, non ischemic
--- NOTE | 2022-09-06 17:48 | DI.RAD_ITS ---
Exam(s) XR PORTABLE CHEST AP EXAM: XR PORTABLE CHEST AP CLINICAL HISTORY: chest pain, tachy, hypotense TECHNIQUE: 2D digital imaging was performed. COMPARISON: No exams were available for comparison FINDINGS: LUNGS: Clear. No pleural abnormality seen. HEART: Normal size. AORTA: Normal diameter. BONES: Unremarkable for age. Soft tissues: Unremarkable. IMPRESSION: No acute findings. DATA REPOSITORY: RADIATION DOSE DELIVERED:
[2022-09-06 18:06] LABS: Abs Immature Grans 0.09 10^3/uL (0.0-0.06); Absolute Lymphocyte Count 3.69 10^3/uL (1.2-3.4); Absolute Monocyte Count 1.34 10^3/uL (0.1-0.8); Basophils % 0.5; Eosinophils % 2.5; HCT 33.9 % (40.0-50.0); HGB 10.8 g/dL (13.5-17.5); Immature Grans % 0.5; MCH 26.6 pg (27.0-33.0); MCHC 31.9 % (32.0-36.0); MCV 84 fL (80-95); MPV 10.4 fL (8.0-11.0); Monocytes % 6.9; Neutrophils % 70.6; Platelet Count 441 10^3/uL (130-400); RBC 4.06 10^6/uL (4.36-5.78); RDW 17.6 % (11.8-14.1); RDW-SD 53.7 fL; WBC 19.43 10^3/uL (4.4-10.8)
[2022-09-06 18:10] LABS: Absolute Eosinophil Count 0.49 10^3/uL (0.0-0.7); Absolute Neutrophil Count 13.72 10^3/uL (1.2-6.7)
--- NOTE | 2022-09-06 18:10 | W.ED.GENAD ---
Discharge Plan Disposition Patient Disposition: Admit to [facility] Condition: Serious Discharge Details Chief Complaint: Chest Pain Clinical Impression: Alcohol withdrawal, Acute dehydration Primary Care Provider: Mel Llamas ED Provider: Chauncey Gipson Home Meds and New Rx's Prescriptions: No Action acetaminophen [Tylenol] 325 mg tablet 975 mg PO ONCE PRN (DME) lancets Misc See Rx Instructions .MEDSUPPLY Rx Instructions: As directed to check blood glucose four times daily. On insulin. Dispense covered brand. metoprolol succinate 25 mg tablet extended release 24 hr 25 mg PO HS Qty: 90 3RF disulfiram 250 mg tablet 250 mg PO DAILY Qty: 90 1RF Lantus Solostar U-100 Insulin 100 unit/mL (3 mL) insulin pen 44 unit subcut HS MDD 46 units daily Qty: 45 3RF Rx Instructions: DMT1 duloxetine 60 mg capsule,delayed release(DR/EC) See Rx Instructions .ROUTE .COMPLEX Qty: 90 3RF Dose Instruction: TAKE 1 CAPSULE BY MOUTH EVERY MORNING Rx Instructions: TAKE 1 CAPSULE BY MOUTH EVERY MORNING Trulicity 0.75 mg/0.5 mL pen injector See Rx Instructions .ROUTE .COMPLEX Qty: 6 0RF Dose Instruction: INJECT 0.5ML UNDER THE SKIN ONCE WEEKLY Rx Instructions: INJECT 0.5ML UNDER THE SKIN ONCE WEEKLY naproxen 375 mg tablet,delayed release (DR/EC) 375 mg PO .with dinner Qty: 14 0RF Rx Instructions: Post-op pain oxycodone 5 mg tablet 2.5 - 5 mg PO BID MDD 10mg/24h PRN (Reason: pain) Qty: 10 0RF Rx Instructions: SEVERE post-op pain (final RX) (DME) OneTouch Verio test strips Strip See Rx Instructions .ROUTE .COMPLEX Qty: 400 0RF Dose Instruction: USE TO TEST BLOOD GLUCOSE FOUR TIMES DAILY Rx Instructions: USE TO TEST BLOOD GLUCOSE FOUR TIMES DAILY insulin lispro [Humalog KwikPen Insulin] 100 unit/mL insulin pen 12 - 15 unit subcut TID PRN Patient Comments: 03/06/20 PER PT, SLIDING SCALE - MINIMUM OF 12U Rx Instructions: tid with meals per sliding to keep AIC below 7.0 chlorthalidone 15 mg tablet 7.5 mg PO DAILY Patient Comments: 05/29/21 visit lisinopril 2.5 mg tablet 2.5 mg PO DAILY Patient Comments: 05/29/21 office visit baking soda PO Rx Instructions: 1/2 teaspoon per day due to metabolic acidosis atorvastatin 20 mg tablet See Rx Instructions .ROUTE .COMPLEX Qty: 90 3RF Dose Instruction: TAKE 1 TABLET BY MOUTH EVERY NIGHT AT BEDTIME FOR CHOLESTEROL OR DIABETES Rx Instructions: TAKE 1 TABLET BY MOUTH EVERY NIGHT AT BEDTIME FOR CHOLESTEROL OR DIABETES (DME) pen needle, diabetic [BD Ultra-Fine Doreen Pen Needle] 32 gauge x /32 needle See Rx Instructions .ROUTE .MEDSUPPLY Qty: 360 3RF Rx Instructions: BD Ultrafine 32G X 6mm, 4x/day for goal A1C<7 for E10.9 gabapentin 300 mg capsule See Rx Instructions .ROUTE .COMPLEX Qty: 90 0RF Dose Instruction: TAKE 1 CAPSULE BY MOUTH AT BEDTIME NEEDED FOR NERVE PAIN INLEGS Rx Instructions: TAKE 1 CAPSULE BY MOUTH AT BEDTIME NEEDED FOR NERVE PAIN INLEGS (DME) Dexcom G7 Nuclear Licensing Engineer Misc See Rx Instructions .ROUTE Qty: 1 0RF Rx Instructions: As directed (DME) Dexcom G7 Sensor Device See Rx Instructions .ROUTE Qty: 1 0RF Rx Instructions: As directed Medical Decision Making 62-year-old male history of CKD diabetes, hypertension, presents with chest pain shortness of breath tachycardia, noted to be tachycardic sinus tach to the 120s, relatively hypotensive to 90s systolic, appears dry skin is warm dry and red. Patient does endorse having a drink before arrival. No drug use per patient. Alert oriented interactive following commands no peripheral edema no recent travel no recent hospitalization. Consider toxicologic process such as cholinergic overdose versus intoxication versus dehydration versus electrolyte abnormality versus ACS versus less likely aortic pathology versus low suspicion for PE versus must consider infectious process such as bacterial infection or viral illness. Will obtain screening labs imaging fluid bolus close reassessment 18: 24 given elevated white count near 20 with left shift hypotension and tachycardia must consider infectious etiology, starting empiric antibiotics vancomycin and cefepime, add a second liter of crystalloid, will draw blood cultures, will swab for COVID flu RSV. 20: 32 great improvement of blood pressure after fluids, high clinical suspicion for dehydration due to poor p.o. intake in the setting of alcohol use. Low suspicion for active infection given improving examination afebrile state normal chest x-ray and no abdominal pain. Will reassess patient symptomatology 21: 22 patient now hypertensive and tachycardic to the 120s with diffuse tremors fasciculations; upon arrival patient denied alcohol abuse however he has now admitted that he drinks approximately 1 gallon of vodka a day. Patient displaying signs of acute alcohol withdrawal. Will start on Librium p.o. and Ativan IV. 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 Patient responding to as needed doses of Ativan, was loaded with Librium. Tremors have greatly improved. Low suspicion for active infection given clear chest x-ray no abdominal pain nausea vomiting afebrile, consider white count related to stress response in the setting of alcohol withdrawal and dehydration. Patient be admitted for fluid hydration continued treatment for EtOH withdrawal. HPI General Date/Time Provider Initiated Documentation: 09/06/22 17:42. HPI Narrative: 62-year-old male history of CKD diabetes hypertension presents with anterior chest pain nonradiating that began at rest this evening associated with fast heartbeat and shortness of breath. No history of coronary disease. Denies nausea or vomiting. Denies drug use however does endorse drinking shortly before arrival. Related Data Home Medications Medication Instructions Recorded Confirmed insulin lispro 100 unit/mL 12 - 15 unit subcut TID PRN 05/19/20 09/06/22 subcutaneous pen (Humalog KwikPen (U-100) Insulin) lancets 08/03/20 09/06/22 baking soda PO 05/29/21 08/21/22 chlorthalidone 15 mg tablet 7.5 mg PO DAILY 05/29/21 09/06/22 lisinopril 2.5 mg tablet 2.5 mg PO DAILY 05/29/21 09/06/22 acetaminophen 325 mg tablet 975 mg PO ONCE PRN 06/06/21 09/06/22 (Tylenol) atorvastatin 20 mg tablet See Rx Instructions .Route 10/19/21 09/06/22 .COMPLEX #90 tabs pen needle, diabetic 32 gauge x #360 ea 02/01/22 08/30/22 (BD Ultra-Fine Doreen Pen Needle) disulfiram 250 mg tablet 250 mg PO DAILY alcohol use 02/20/22 09/06/22 disorder #90 tabs duloxetine 60 mg capsule,delayed See Rx Instructions .Route 02/20/22 09/06/22 release .COMPLEX #90 caps insulin glargine 100 unit/mL (3 44 unit (0.44 mL) subcut HS #45 mL 02/20/22 09/06/22 mL) subcutaneous pen (Lantus Solostar U-100 Insulin) metoprolol succinate 25 mg 25 mg PO HS #90 tabs 02/20/22 09/06/22 tablet,extended release 24 hr gabapentin 300 mg capsule See Rx Instructions .Route 05/30/22 09/06/22 .COMPLEX #90 caps dulaglutide 0.75 mg/0.5 mL See Rx Instructions .Route 06/06/22 09/06/22 subcutaneous pen injector .COMPLEX #6 mL (Trulicity) blood sugar diagnostic (OneTouch #400 strips 08/21/22 09/06/22 Verio test strips) naproxen 375 mg tablet,delayed 375 mg PO .with dinner #14 tabs 08/21/22 09/06/22 release oxycodone 5 mg tablet 2.5 - 5 mg PO BID PRN pain #10 tabs 08/21/22 09/06/22 blood-glucose meter,continuous #1 ea 08/26/22 09/06/22 (Dexcom G7 Nuclear Licensing Engineer) blood-glucose sensor (Dexcom G7 #1 ea 08/26/22 09/06/22 Sensor device) Previous Rx's Medication Instructions Recorded atorvastatin 20 mg tablet See Rx Instructions .Route 10/19/21 .COMPLEX #90 tabs pen needle, diabetic 32 gauge x #360 ea 02/01/22 (BD Ultra-Fine Doreen Pen Needle) disulfiram 250 mg tablet 250 mg PO DAILY alcohol use 02/20/22 disorder #90 tabs duloxetine 60 mg capsule,delayed See Rx Instructions .Route 02/20/22 release .COMPLEX #90 caps insulin glargine 100 unit/mL (3 44 unit (0.44 mL) subcut HS #45 mL 02/20/22 mL) subcutaneous pen (Lantus Solostar U-100 Insulin) metoprolol succinate 25 mg 25 mg PO HS #90 tabs 02/20/22 tablet,extended release 24 hr gabapentin 300 mg capsule See Rx Instructions .Route 05/30/22 .COMPLEX #90 caps dulaglutide 0.75 mg/0.5 mL See Rx Instructions .Route 06/06/22 subcutaneous pen injector .COMPLEX #6 mL (Trulicity) blood sugar diagnostic (OneTouch #400 strips 08/21/22 Verio test strips) naproxen 375 mg tablet,delayed 375 mg PO .with dinner #14 tabs 08/21/22 release oxycodone 5 mg tablet 2.5 - 5 mg PO BID PRN pain #10 tabs 08/21/22 blood-glucose meter,continuous #1 ea 08/26/22 (Dexcom G7 Nuclear Licensing Engineer) blood-glucose sensor (Dexcom G7 #1 ea 08/26/22 Sensor device) Allergies Allergy/AdvReac Type Severity Reaction Status Date / Time lactose intolerant AdvReac Mild Diarrhea Uncoded 08/21/22 08:46 General Stated Complaint: Chest Pain GALILEO: 2 Review of Systems Narrative: Review of Systems Constitutional: negative Eyes: negative ENT: negative Cardiovascular: Chest pain Respiratory: Shortness of breath Gastrointestinal: negative : negative Musculoskeletal: negative Skin: negative Neurologic: negative Psych: negative PFSH All Active Problems (Updated 09/06/22 @ 22:55 by Chauncey Gipson MD) Finger laceration (Acute) Alcohol withdrawal (Acute) Acute dehydration (Acute) Post-operative pain (Acute) Dehiscence of operative wound (Acute) Subsequent encounter Skin ulcer of scrotum (Acute) De Quervain's tenosynovitis, left (Acute) 40 mg Depo-Medrol injection: 04/04/2022 Metabolic acidosis (Acute) Essential hypertension (Acute) CKD (chronic kidney disease) stage 4, GFR 15-29 ml/min (Acute) Alcohol use disorder, moderate, in early remission (Acute ~12/2021) Antabuse RX Lamellar macular hole of both eyes (Acute 10/25/21) Type 1 diabetes, controlled, with neuropathy (Chronic ~05/2017) Adult onset, diagnosed 05/2017 [facility] Endo Dr. Douglas--recommend GLP1 Personal goal A1C <7% Stage 3b chronic kidney disease (CKD) (Chronic) [facility] Nephro initial consult 07/2020; DMT1 & Solitary partial L kidney s/p nephrectomy due to renal cell cancer Secondary hyperparathyroidism (Acute ~05/2021) 05/29/21 [facility] Nephrology Elevated PSA (Acute) Family history of prostate cancer (Chronic) F Tubular adenoma of colon (Chronic) 08/2018 colonoscopy [facility]; recall 5y Hyperlipidemia (Chronic) Hypertension (Chronic) RX Lisinopril (stopped due to creatinine) Medical History Alcohol intoxication (~12/02/21) Bilateral carpal tunnel syndrome Carpal tunnel syndrome on both sides +[facility] 05/08/2020 Chronic gingivitis, plaque induced Dentist History of alcohol use disorder since 1989 with intermittent sobriety History of elevated PSA Per [facility]--01/14/2019 6.41, 04/28/2018 6.32; +Fam hx prostate cancer in F History of opioid abuse s/p surgeries; visiting brother 08/2021 ([facility] admission) History of renal cell cancer s/p nephrectomy Hyperkalemia (~05/2021) 05/29/21 [facility] Nephrology Lesion of bone of left forearm proximal radius lesion Osteoarthritis of elbows, bilateral Polyneuropathy associated with underlying disease DM Solitary left kidney [facility] Nephro (initial 07/2020); s/p nephrectomy on R 2004 renal cell cancer; partial nephrectomy on 2007 Type 1 diabetes mellitus without complications Surgical History H/O arthroscopy of knee Remotely--both knees at some point; he cannot recall what, but thinks meniscal H/O partial nephrectomy (~04/2007) left H/O skin graft [facility] 07/12/22 Scrotal Abscess 07/15/22 Skin Graft with Bolster removal History of nephrectomy, right (~03/2004) Renal cell cancer Family History Mother , 54yo breast cancer Alcohol abuse Breast cancer Depression Substance abuse Father , ~70yo prostate cancer Alcohol abuse Prostate cancer Substance abuse Sister , throat caner (nicotine use) Alcohol abuse Cancer Cervical Substance abuse Social History Smoking/Tobacco Use Status: Never Smoking risk assessment performed?: Yes Alcohol Intake: current Alcohol Intake frequency: a few times a month Previous attempts at quittin Counseling given: Yes ([facility]) Drug use: Occasionally Substance use type: opiates Details: no IV drug use Adopted: No Caregiver/Support person: No Foster care: No Household members: other Details: Sober Living Facility Housing: other Number of Children: 4 number of grandchildren: 4 Communication Needs: None Education Level: college Do you need help understanding health information?: Rarely 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) Pets and animals: Yes Pets and animals: cat(s) Sexually active: No Do you think of yourself as: straight/heterosexual Current gender identity: male What is your relationship status?: How often do you talk on the phone with friends or family?: three or more times per week How often do you get together with friends or relatives?: three or more times per week How often do you attend faith or restoration services?: 4 or more times per year Do you belong to any clubs or organized social groups?: no Panel score (0-1 are the most socially isolated patients): 2 What type of physical activity do you participate in: walking, bicycling and other Details: EXERCISE ON STATIONARY BIKE Duration: < 15 minutes/day Frequency: 3-4 times per week Erin/Pentecostalism: Episcopalian Agree to transfusion: No Seatbelt use: always Helmet use: Yes Drive intox or ride w/intox sprinkler driver: No Water heater temp set <120 deg: Yes Working smoke detector in home: Yes Fire extinguisher in home: Yes Do you feel safe at home: Yes Do you feel safe in your relationship?: Yes Exam Narrative Exam Narrative: Physical Examination General: alert, awake, cooperative HEENT: normocephalic, atraumatic; PERRL, EOM intact, conjunctiva normal; no nasal discharge; moist mucous membranes, oral and pharyngeal mucosa normal, tolerating secretions Neck: supple, trachea midline; full ROM Chest: normal to inspection Respiratory: normal respiratory effort, speaking in full sentences, clear to auscultation, no wheezing, rales or rhonchi Cardiac: Tachycardia, regular rhythm, S1S2 intact, no murmurs rubs or gallops GI: abdomen soft, non-tender, non-distended; no palpable mass or hepatosplenomegaly Skin: Warm red dry skin Neuro: AAOx3, normal speech, moving all extremities Extremities: No peripheral edema Course Vital Signs Vital signs: Vital Signs Temperature 36.6 C 09/06/22 17:42 Pulse 131 H 09/06/22 17:42 Respiratory Rate 26 H 09/06/22 17:42 Blood Pressure 98/51 L 09/06/22 17:42 Pulse Oximetry 99 09/06/22 17:42 Temperature 36.6 C 09/06/22 17:42 Temperature Source Oral 09/06/22 17:42 Pulse 131 H 09/06/22 17:42 Respiratory Rate 26 H 09/06/22 17:44 Respiratory Effort Short of Breath 09/06/22 17:44 Respiratory Depth Normal 09/06/22 17:44 Respiratory Pattern Normal 09/06/22 17:44 Blood Pressure 98/51 L 09/06/22 17:42 Blood Pressure Position Sitting 09/06/22 17:42 Pulse Oximetry 99 09/06/22 17:42 Oxygen Delivery Method Room Air 09/06/22 17:42 Oxygen Flow Rate 0 09/06/22 17:42 Pain Level 8 09/06/22 17:44 PAWSS Have you Been Recently Intoxicated or Drunk Within the Last 30 days?: No Have you Ever Experienced Previous Episodes of Alcohol Withdrawal?: Yes Have you ever Experienced Withdrawal Seizures?: Yes Have you ever Experienced Delirium Tremens(DT)s?: No Have you ever undergone Alcohol Rehabilitation Treatment (i.e, inpt ot outpatient treatment programs)?: Yes Have you ever Experienced Blackouts?: Yes Have you ever Combined Alcohol with other Downers within the last 90 days?: No Have you ever Combined Alcohol with any other Substance of Abuse during the last 90 days?: No Positive Blood Alcohol level on Presentation? [PCS.BAL]: No Evidence of Increased Autonomic Activity (i.e. HR>120, tremor, sweating, agitation, nausea)?: Yes Result: 5
[2022-09-06 18:18] LABS: PTT Activated 24.3 sec (21.5-31.9); Prothrombin Time 10.1 sec (9.3-11.0)
[2022-09-06 18:30] LABS: ALT 15 U/L (16-63); AST 15 U/L (15-37); Albumin 3.5 g/dL (3.4-5.0); Alkaline Phosphatase 100 U/L (46-116); Anion Gap 20.9 mmol/L (3-11); BUN 41 mg/dL (7-18); Bilirubin, Total 0.9 mg/dL (0.2-1.0); CO2 14.1 mmol/L (21.0-32.0); CREATININE 2.2 mg/dL (0.70-1.30); Calcium 9.2 mg/dL (8.5-10.1); Chloride 104 mmol/L (98-107); Estimated GFR 32.83 (mL/min/1.73m2); Glucose 270 mg/dL (74-106); Lipase 97 U/L (16-77); Magnesium 1.2 mg/dL (1.8-2.4); NT-proBNP 163 pg/mL (<300); Potassium 3.6 mmol/L (3.5-5.1); Sodium 139 mmol/L (136-145); TSH (W/Ref FT4) 2.47 uIU/mL (0.36-3.74); Troponin I < 50 ng/L (<or=60)
[2022-09-06] MEDS: CEFEPIME 2 GM in Normal Saline 100 ML IVPB (18:47)
[2022-09-06] MEDS: ACETAMINOPHEN 1,000 MG/100 ML BTL 400 MG IVPB (18:47)
[2022-09-06] MEDS: Normal Saline 1,000 ML 1000 ML IV ×2 (18:48→20:36)
[2022-09-06 19:05] LABS: BE (Venous) -12 mmol/L (-2-3); HCO3 (Venous) 13 mmol/L (23-28); O2 Sat (Venous) 80 %; TCO2 (Venous) 12 mmol/L (24-29); pCO2 (Venous) 23 mmHg (41-51); pH (Venous) 7.38 (7.31-7.41); pO2 (Venous) 42 mmHg
[2022-09-06 19:07] LABS: Lactate 2.7 mmol/L (0.6-1.4)
[2022-09-06 19:17] LABS: ETHANOL BLOOD 73.3 mg/dL (<10)
[2022-09-06 19:41] LABS: COVID-19 PCR Negative (Negative); Influenza A PCR Negative (Negative); Influenza B PCR Negative (Negative); RSV PCR Negative (Negative)
[2022-09-06 19:45] LABS: Source Nasopharynx
--- NOTE | 2022-09-06 19:50 | DI.VRAD_ITS ---
PROCEDURE INFORMATION: Exam: XR Chest Exam date and time: 09/06/2022 7:08 PM Age: 62 years old Clinical indication: Other: Chest pain, tachy hypotense TECHNIQUE: Imaging protocol: Radiologic exam of the chest. Views: 1 view. COMPARISON: CT ABDOMEN PELVIS WO 08/15/2022 10:25 PM FINDINGS: Lungs: Mild chronic interstitial prominence No consolidation. Pleural spaces: No pleural effusion. No pneumothorax. Heart/Mediastinum: No cardiomegaly. Bones/joints: Chronic left clavicular deformity. Degenerative changes in the shoulders IMPRESSION: No acute findings. Dictated and Authenticated by: Mando Rodriguez MD. Ordering:JANETTE Grossman MD
[2022-09-06] MEDS: VANCOMYCIN 2,000 MG in Normal Saline 500 ML 250 MG IVPB (20:29)
[2022-09-06 21:35] LABS: Bilirubin Negative (Negative); Blood Negative (Negative); Clarity Clear (Clear); Glucose 100 mg/dL (Negative); Ketones Negative (Negative); Leukocyte Esterase Negative (Negative); Nitrite Negative (Negative); Urobilinogen 0.2 mg/dL (Up to 0.2)
[2022-09-06] MEDS: LORazepam 2 MG/ML VIAL IVP ×2 (21:37→22:20)
[2022-09-06] MEDS: chlordiazePOXIDE 25 MG CAP 50 MG PO (21:37)
[2022-09-06 21:52] LABS: Bacteria Few HPF (Negative); C & S Indicated? No; Casts 0-2 Hyaline LPF (Negative); Crystals Negative HPF (Negative); Epithelial Cells Few HPF (Negative); Mucus Negative (Negative); RBC Negative HPF (0-2)
[2022-09-06 21:53] LABS: *AMPHETAMINES SCREEN URINE Negative (Negative); *BARBITURATES SCREEN URINE Negative (Negative); *BENZODIAZEPINES SCREEN URINE Negative (Negative); Cannabinoids THC Negative (Negative); Cocaine Screen,Urine Negative (Negative); METHADONE URINE SCREEN Negative (Negative); OPIATES URINE SCREEN Negative (Negative)
[2022-09-06 21:54] LABS: Tricyclic Antidepressants Negative (Negative)
[2022-09-06 22:24] LABS: Troponin I 56 ng/L (<or=60)
[2022-09-06 22:42] LABS: Anion Gap 15.4 mmol/L (3-11); BUN 41 mg/dL (7-18); CO2 15.6 mmol/L (21.0-32.0); CREATININE 2.1 mg/dL (0.70-1.30); Calcium 7.8 mg/dL (8.5-10.1); Chloride 109 mmol/L (98-107); Estimated GFR 34.72 (mL/min/1.73m2); Glucose 258 mg/dL (74-106); Potassium 3.8 mmol/L (3.5-5.1); Sodium 140 mmol/L (136-145)
[2022-09-07] VITALS (92 sets, daily range): BP systolic 116–148; BP diastolic 58–88; PULSE 83–128; RESP 0–35; TEMP 36.8–39; O2SAT 92–100
--- NOTE | 2022-09-07 | DI.NM_ITS ---
Exam(s) NM LUNG SCAN VENT PERF GRP EXAM: NM LUNG SCAN VENT PERF GRP CLINICAL HISTORY: chest pain, SOB, elevated d-dimer. TECHNIQUE: Injected Dose: Ventilation: 35 mCi Tc-99m DTPA via inhalation Perfusion: 4.5 mCi Tc-99m MAA via IV COMPARISON: CR,XR XR PORTABLE CHEST AP from 09/06/2022 FINDINGS: Chest X-Ray: Clear lungs. Perfusion: Normal. Ventilation:Normal IMPRESSION: 1. Normal VQ examination. no evidence of pulmonary emboli... Modified PIOPED II criteria Probability Criteria High Two or more segments of V/Q mismatch Low Normal Perfusion, Non segmental perfusion abnormalitie s, pleural effusion in at least 1/3 of pleural cavity with no other defect Radiograph/perfusion matched defect in mid to upper lung confined to segment, one to three small segmental perfusion defects (<25% of segment) Perfusion defect smaller than corresponding radiogra phic lesion. Intermediate All other findings DATA REPOSITORY:
[2022-09-07 00:09] LABS: PHOSPHORUS 3.9 mg/dL (2.6-4.7)
--- NOTE | 2022-09-07 00:15 | W.PM.HP.N ---
Date of service: 09/07/22 Time of Service: 00:15 Assessment and Plan Assessment and plan (1) Chest pain: Status: Acute Assessment and plan: He is clearly in alcohol withdrawal, but his initial presentation was for chest pain and this was well before withdrawal started. He is at risk for CAD, though his EKG and troponins are reassuring. He was a bit hypotensive on presentation but this resolved with fluids. For now, continue cardiac monitoring. He is also at risk for gastric and esophageal pathology, will start PPI. PE is not highest but is in the differential given sudden onset chest pain/SOB/tachycardia. Will get d-dimer and consider anticoagulation and V/Q scan if positive. (2) Alcohol withdrawal: Status: Acute Assessment and plan: Given chlordiazepoxide and lorazepam in the ED and some lorazepam. However phenobarbitol protocol preferred by hospitalist team for high risk patients, so will transition to this. His total benzodiazepine dose was well below 20 lorazepam equivalents so I think this is safe. (3) Stage 3b chronic kidney disease (CKD): Status: Chronic Assessment and plan: Borderline CKD3b/CKD4 at baseline. Despite some apparent dehydration on presentation, his creatinine was at baseline on presentation. Follow (4) Type 1 diabetes, controlled, with neuropathy: Status: Chronic Assessment and plan: Poor control with A1c >11% in June 2022. He is type 1 DM per endocrine but also on GLP-1 presumptively due to concurrent obesity. Continue basal/bolus insulin while inpatient. (5) Elevated white blood cell count: Status: Acute Assessment and plan: Initial concern for infection, but I agree with Dr. Odonnell that there is no clear infection. Lactate improved with fluids. Will not continue antbiotics for now. Cultures are pending. If fevers or other signs of infection will resume broach spectrum antibiotics and continue searching for a source. (6) Alcohol use disorder: Status: Acute Assessment and plan: He has been treated with disulfuram, though I would be concerned with safety of this medication given his chronic medical conditions particularly his CKD. Holding for now, review other options before discharge. (7) Hypertension: Status: Chronic Assessment and plan: Monitor on outpatient medication Qualifiers: Hypertension type: primary hypertension Qualified Code(s): I10 - Essential (primary) hypertension (8) Hypomagnesemia: Status: Acute Assessment and plan: Replace carefully given GFR (9) DVT prophylaxis: Status: Acute Assessment and plan: LMWH, renal dose if necessary per pharmacy (10) Discharge planning issues: Status: Acute Assessment and plan: Currently in ICU given severe withdrawal symtoms, need for close monitoring. History of Present Illness History of Present Illness Chief Complaint: short of breath, tachycardia, chest pain Narrative: 62 yo M with CKD3b, BMI 38, poorly controlled diabetes, and alcohol use disorder who presented to the emergency room in the evening of 09/06/22 feeling chest pain, shortness of breath, and heart racing. Onset sudden while sitting watching television and drinking at around 2:30 pm. He had never had those symptoms before so he called EMS. Pain sharp, mid sternum, moderate to severe. He still feels the pain though less intense. Feels different than heartburn. It did make him feel lightheaded, still feels that way. No nausea/vomiting. No fevers, though he feels cold now. He drinks 1 gallon of liquor a day. He had drinking 1/2 gallon the day of admission. He has been though withdrawal before but denies h/o seizures. He was last sober about 6 months ago for 6-7 months. His pcp had prescribed disulfuram but he was not taking it. No recent medication changes. no recent surgical procedures or other injurys, no recent long trips. Review of Systems Constitutional Constitutional: Denies anorexia, Denies fever(s), Reports headache(s) (mild), Reports lethargy and Denies weakness Eyes Eyes: Denies change in vision and Denies irritation ENT Ears, Nose, Mouth, and Throat: Denies dizziness, Reports headache(s) (mild), Denies nasal congestion, Denies nasal discharge and Denies sore throat Cardiovascular Cardiovascular: Reports as per HPI, Denies pedal edema and Denies orthopnea Respiratory Respiratory: Denies cough, Denies hemoptysis, Denies excessive phlegm production and Denies wheezing Gastrointestinal Gastrointestinal: Denies abdominal pain, Denies melena, Denies hematochezia, Denies constipation, Reports heartburn, Denies diarrhea and Denies vomiting Genitourinary Genitourinary: Denies hematuria, Denies dysuria and Denies urinary incontinence Musculoskeletal Musculoskeletal: Reports myalgias and Denies joint swelling Integumentary/Breasts Skin/Breast: Denies rash and Denies skin ulcer Neurologic Neurologic: Denies abnormal speech, Denies confusion, Denies dizziness, Reports headache(s) (mild), Denies convulsions, Denies sensory deficit, Reports tremor(s) and Denies weakness Psychiatric Psychiatric: Reports anxiety, Denies confusion, Denies visual hallucinations and Denies hallucinations Hematologic/Lymphatic Hematologic/Lymphatic: Denies easy bleeding Allergic/Immunologic Allergic/Immunologic: Denies wheezing PFSH All Active Problems (Updated 09/07/22 @ 01:17 by Toby Nuñez) Chest pain (Acute) Hypomagnesemia (Acute) Discharge planning issues (Acute) DVT prophylaxis (Acute) Elevated white blood cell count (Acute) Alcohol use disorder (Acute) Finger laceration (Acute) Alcohol withdrawal (Acute) Acute dehydration (Acute) Post-operative pain (Acute) Dehiscence of operative wound (Acute) Subsequent encounter Skin ulcer of scrotum (Acute) De Quervain's tenosynovitis, left (Acute) 40 mg Depo-Medrol injection: 04/04/2022 Metabolic acidosis (Acute) Essential hypertension (Acute) CKD (chronic kidney disease) stage 4, GFR 15-29 ml/min (Acute) Alcohol use disorder, moderate, in early remission (Acute ~12/2021) Antabuse RX Lamellar macular hole of both eyes (Acute 10/25/21) Type 1 diabetes, controlled, with neuropathy (Chronic ~05/2017) Adult onset, diagnosed 05/[address] [facility] [address]. Douglas--recommend GLP1 Personal goal A1C <7% Stage 3b chronic kidney disease (CKD) (Chronic) [facility] Nephro initial consult 07/2020; DMT1 & Solitary partial L kidney s/p nephrectomy due to renal cell cancer Secondary hyperparathyroidism (Acute ~05/2021) 05/29/21 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 Nephrology Lesion of bone of left forearm proximal radius lesion Osteoarthritis of elbows, bilateral Polyneuropathy associated with underlying disease DM Solitary left kidney [facility] Nephro (initial 07/2020); s/p nephrectomy on R 2004 renal cell cancer; partial nephrectomy on L 2007 Type 1 diabetes mellitus without complications Surgical History H/O arthroscopy of knee Remotely--both knees at some point; he cannot recall what, but thinks meniscal H/O partial nephrectomy (~04/2007) left H/O skin graft [facility] 07/12/22 Scrotal Abscess 07/15/22 Skin Graft with Bolster removal History of nephrectomy, right (~03/2004) Renal cell cancer Family History Mother , 54yo breast cancer Alcohol abuse Breast cancer Depression Substance abuse Father , ~70yo prostate cancer Alcohol abuse Prostate cancer Substance abuse Sister , throat caner (nicotine use) Alcohol abuse Cancer Cervical Substance abuse Social History Smoking/Tobacco Use Status: Never Smoking risk assessment performed?: Yes Alcohol Intake: current Alcohol Intake frequency: a few times a month Previous attempts at quittin Counseling given: Yes ([facility]) Drug use: Occasionally Substance use type: opiates Details: no IV drug use Adopted: No Caregiver/Support person: No Foster care: No Household members: other Details: Sober Living Facility Housing: other Number of Children: 4 number of grandchildren: 4 Communication Needs: None Education Level: college Do you need help understanding health information?: Rarely 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) Pets and animals: Yes Pets and animals: cat(s) Sexually active: No Do you think of yourself as: straight/heterosexual Current gender identity: male What is your relationship status?: How often do you talk on the phone with friends or family?: three or more times per week How often do you get together with friends or relatives?: three or more times per week How often do you attend rastafarian or latter-day services?: 4 or more times per year Do you belong to any clubs or organized social groups?: no Panel score (0-1 are the most socially isolated patients): 2 What type of physical activity do you participate in: walking, bicycling and other Details: EXERCISE ON STATIONARY BIKE Duration: < 15 minutes/day Frequency: 3-4 times per week Erin/Cheondoism: Baptism Agree to transfusion: No Seatbelt use: always Helmet use: Yes Drive intox or ride w/intox box truck driver: No Water heater temp set <120 deg: Yes Working smoke detector in home: Yes Fire extinguisher in home: Yes Do you feel safe at home: Yes Do you feel safe in your relationship?: Yes Meds Allergies and Home Medications Allergies Allergy/AdvReac Type Severity Reaction Status Date / Time lactose intolerant AdvReac Mild Diarrhea Uncoded 08/21/22 08:46 Home Medications Medication Instructions Recorded Confirmed Type insulin lispro 100 unit/mL 12 - 15 unit subcut TID PRN 05/19/20 09/06/22 History subcutaneous pen (Humalog KwikPen (U-100) Insulin) lancets 08/03/20 09/06/22 History baking soda PO 05/29/21 08/21/22 History chlorthalidone 15 mg tablet 7.5 mg PO DAILY 05/29/21 09/06/22 History lisinopril 2.5 mg tablet 2.5 mg PO DAILY 05/29/21 09/06/22 History acetaminophen 325 mg tablet 975 mg PO ONCE PRN 06/06/21 09/06/22 History (Tylenol) atorvastatin 20 mg tablet See Rx Instructions .Route 10/19/21 09/06/22 Rx .COMPLEX #90 tabs pen needle, diabetic 32 gauge x #360 ea 02/01/22 08/30/22 Rx 5/32 (BD Ultra-Fine Doreen Pen Needle) disulfiram 250 mg tablet 250 mg PO DAILY alcohol use 02/20/22 09/06/22 Rx disorder #90 tabs duloxetine 60 mg capsule,delayed See Rx Instructions .Route 02/20/22 09/06/22 Rx release .COMPLEX #90 caps insulin glargine 100 unit/mL (3 44 unit (0.44 mL) subcut HS #45 mL 02/20/22 09/06/22 Rx mL) subcutaneous pen (Lantus Solostar U-100 Insulin) metoprolol succinate 25 mg 25 mg PO HS #90 tabs 02/20/22 09/06/22 Rx tablet,extended release 24 hr gabapentin 300 mg capsule See Rx Instructions .Route 05/30/22 09/06/22 Rx .COMPLEX #90 caps dulaglutide 0.75 mg/0.5 mL See Rx Instructions .Route 06/06/22 09/06/22 Rx subcutaneous pen injector .COMPLEX #6 mL (Trulicity) blood sugar diagnostic (OneTouch #400 strips 08/21/22 09/06/22 Rx Verio test strips) naproxen 375 mg tablet,delayed 375 mg PO .with dinner #14 tabs 08/21/22 09/06/22 Rx release oxycodone 5 mg tablet 2.5 - 5 mg PO BID PRN pain #10 tabs 08/21/22 09/06/22 Rx blood-glucose meter,continuous #1 ea 08/26/22 09/06/22 Rx (Dexcom G7 Horse Rancher) blood-glucose sensor (Dexcom G7 #1 ea 08/26/22 09/06/22 Rx Sensor device) Exam Narrative Exam Narrative: GEN: Alert and oriented, pleasant and cooperative, gives linear history. lying in bed with covers to neck, appears anxious and mildly uncomfortablet. HEENT: Head atraumatic. Conjunctiva clear, no icterus. PEERL, EOMI. no rhinorrhea. MMM, OP benign. Neck is supple with no masses or lymphadenopathy, trachea midline LUNGS: CTAB with normal effort CV: RRR with no murmurs, gallops, or rubs. ABD: +BS, soft, NT/ND EXT: no cyanosis, clubbing, or edema. no tenderness in calves/legs to palpation MSK: No joint redness or swelling NEURO: CN 2-12 grossly intact. Normal movement of 4 extremities. Normal speech and gross coordination. Currently mild head and hand tremor. SKIN: No rashes or open wounds. PSYCH: anxious mood and affect, no hallucinations evident Results Imaging Chest x-ray: report reviewed (Lungs: Mild chronic interstitial prominence No consolidation. Pleural spaces: No pleural effusion. No pneumothorax. Heart/Mediastinum: No cardiomegaly. Bones/joints: Chronic left clavicular deformity. Degenerative changes in the shoulders) EKG: report reviewed and image reviewed (sinus tachycardia ~140, nl axis, intervals, no ischemic changes) Labs 09/06/22 18:00 09/06/22 22:28 Labs: Laboratory Results - last 24 hr 09/06/22 09/06/22 09/06/22 18:00 18:00 18:00 WBC 19.43 H RBC 4.06 L Hgb 10.8 L Hct 33.9 L MCV 84 MCH 26.6 L MCHC 31.9 L RDW 17.6 H Plt Count 441 H MPV 10.4 Immature Gran % 0.5 Neutrophils % 70.6 Lymphocytes % 19.0 Monocytes % 6.9 Eosinophils % 2.5 Basophils % 0.5 Nucleated RBC % 0.0 Absolute Neutrophils 13.72 H Absolute Lymphocytes 3.69 H Absolute Monocytes 1.34 H Absolute Eosinophils 0.49 Absolute Basophils 0.10 PT 10.1 INR 1.0 APTT 24.3 VBG pH VBG pCO2 VBG pO2 VBG HCO3 VBG Total CO2 VBG O2 Saturation VBG Base Excess VBG Lactate Sodium 139 Potassium 3.6 Chloride 104 Carbon Dioxide 14.1 L Anion Gap 20.9 H BUN 41 H Creatinine 2.2 H Est GFR (CKD-EPI 2020) 32.83 Glucose 270 H Calcium 9.2 Magnesium 1.2 L Total Bilirubin 0.9 AST 15 ALT 15 L Alkaline Phosphatase 100 Troponin I < 50 NT-Pro-B Natriuret Pep 163 Total Protein 8.0 Albumin 3.5 Lipase 97 H TSH 2.47 Urine Color Urine Clarity Urine pH Ur Specific [place] Urine Protein Urine Ketones Urine Blood Urine Nitrite Urine Bilirubin Urine Urobilinogen Ur Leukocyte Esterase Urine RBC Urine WBC Ur Epithelial Cells Urine Crystals Urine Bacteria Urine Casts Urine Mucus Ur Culture Indicated? Urine Glucose Urine Opiates Screen Urine Methadone Screen Ur Barbiturates Screen Ur Tricyclics Screen Ur Amphetamines Screen U Benzodiazepines Scrn Urine Cocaine Screen Ur THC Screen Ethyl Alcohol COVID-19 Source SARS-CoV-2 (PCR) Influenza Type A (PCR) Influenza Type B (PCR) RSV (PCR) 09/06/22 09/06/2223 18:57 18:57 18:57 WBC RBC Hgb Hct MCV MCH MCHC RDW Plt Count MPV Immature Gran % Neutrophils % Lymphocytes % Monocytes % Eosinophils % Basophils % Nucleated RBC % Absolute Neutrophils Absolute Lymphocytes Absolute Monocytes Absolute Eosinophils Absolute Basophils PT INR APTT VBG pH 7.38 VBG pCO2 23 L VBG pO2 42 VBG HCO3 13 L VBG Total CO2 12 L VBG O2 Saturation 80 VBG Base Excess -12 L VBG Lactate 2.7 H* Sodium Potassium Chloride Carbon Dioxide Anion Gap BUN Creatinine Est GFR (CKD-EPI 2020) Glucose Calcium Magnesium Total Bilirubin AST ALT Alkaline Phosphatase Troponin I NT-Pro-B Natriuret Pep Total Protein Albumin Lipase TSH Urine Color Urine Clarity Urine pH Ur Specific [place] Urine Protein Urine Ketones Urine Blood Urine Nitrite Urine Bilirubin Urine Urobilinogen Ur Leukocyte Esterase Urine RBC Urine WBC Ur Epithelial Cells Urine Crystals Urine Bacteria Urine Casts Urine Mucus Ur Culture Indicated? Urine Glucose Urine Opiates Screen Urine Methadone Screen Ur Barbiturates Screen Ur Tricyclics Screen Ur Amphetamines Screen U Benzodiazepines Scrn Urine Cocaine Screen Ur THC Screen Ethyl Alcohol 73.3 H COVID-19 Source SARS-CoV-2 (PCR) Influenza Type A (PCR) Influenza Type B (PCR) RSV (PCR) 09/06/22 09/06/22 09/06/22 18:57 21:30 21:30 WBC RBC Hgb Hct MCV MCH MCHC RDW Plt Count MPV Immature Gran % Neutrophils % Lymphocytes % Monocytes % Eosinophils % Basophils % Nucleated RBC % Absolute Neutrophils Absolute Lymphocytes Absolute Monocytes Absolute Eosinophils Absolute Basophils PT INR APTT VBG pH VBG pCO2 VBG pO2 VBG HCO3 VBG Total CO2 VBG O2 Saturation VBG Base Excess VBG Lactate Sodium Potassium Chloride Carbon Dioxide Anion Gap BUN Creatinine Est GFR (CKD-EPI 2020) Glucose Calcium Magnesium Total Bilirubin AST ALT Alkaline Phosphatase Troponin I NT-Pro-B Natriuret Pep Total Protein Albumin Lipase TSH Urine Color Yellow Urine Clarity Clear Urine pH 5.0 Ur Specific [place] 1.010 Urine Protein 100 H Urine Ketones Negative Urine Blood Negative Urine Nitrite Negative Urine Bilirubin Negative Urine Urobilinogen 0.2 Ur Leukocyte Esterase Negative Urine RBC Negative Urine WBC 3-5 Ur Epithelial Cells Few Urine Crystals Negative Urine Bacteria Few Urine Casts 0-2 Hyaline Urine Mucus Negative Ur Culture Indicated? No Urine Glucose 100 H Urine Opiates Screen Negative Urine Methadone Screen Negative Ur Barbiturates Screen Negative Ur Tricyclics Screen Negative Ur Amphetamines Screen Negative U Benzodiazepines Scrn Negative Urine Cocaine Screen Negative Ur THC Screen Negative Ethyl Alcohol COVID-19 Source Nasopharynx SARS-CoV-2 (PCR) Negative Influenza Type A (PCR) Negative Influenza Type B (PCR) Negative RSV (PCR) Negative 09/06/22 09/06/22 09/06/22 22:00 22:28 22:28 WBC RBC Hgb Hct MCV MCH MCHC RDW Plt Count MPV Immature Gran % Neutrophils % Lymphocytes % Monocytes % Eosinophils % Basophils % Nucleated RBC % Absolute Neutrophils Absolute Lymphocytes Absolute Monocytes Absolute Eosinophils Absolute Basophils PT INR APTT VBG pH VBG pCO2 VBG pO2 VBG HCO3 VBG Total CO2 VBG O2 Saturation VBG Base Excess VBG Lactate 2.0 H Sodium 140 Potassium 3.8 Chloride 109 H Carbon Dioxide 15.6 L Anion Gap 15.4 H BUN 41 H Creatinine 2.1 H Est GFR (CKD-EPI 2020) 34.72 Glucose 258 H Calcium 7.8 L Magnesium Total Bilirubin AST ALT Alkaline Phosphatase Troponin I 56 NT-Pro-B Natriuret Pep Total Protein Albumin Lipase TSH Urine Color Urine Clarity Urine pH Ur Specific [place] Urine Protein Urine Ketones Urine Blood Urine Nitrite Urine Bilirubin Urine Urobilinogen Ur Leukocyte Esterase Urine RBC Urine WBC Ur Epithelial Cells Urine Crystals Urine Bacteria Urine Casts Urine Mucus Ur Culture Indicated? Urine Glucose Urine Opiates Screen Urine Methadone Screen Ur Barbiturates Screen Ur Tricyclics Screen Ur Amphetamines Screen U Benzodiazepines Scrn Urine Cocaine Screen Ur THC Screen Ethyl Alcohol COVID-19 Source SARS-CoV-2 (PCR) Influenza Type A (PCR) Influenza Type B (PCR) RSV (PCR) Last Vital Signs Temp 36.6 C 09/06/22 17:42 Pulse 110 H 09/07/22 00:01 Resp 27 H 09/07/22 00:10 BP 135/67 09/07/22 00:01 Pulse Ox 99 09/07/22 00:10 PAWSS Have you Been Recently Intoxicated or Drunk Within the Last 30 days?: No Have you Ever Experienced Previous Episodes of Alcohol Withdrawal?: Yes Have you ever Experienced Withdrawal Seizures?: Yes Have you ever Experienced Delirium Tremens(DT)s?: No Have you ever undergone Alcohol Rehabilitation Treatment (i.e, inpt ot outpatient treatment programs)?: Yes Have you ever Experienced Blackouts?: Yes Have you ever Combined Alcohol with other Downers within the last 90 days?: No Have you ever Combined Alcohol with any other Substance of Abuse during the last 90 days?: No Positive Blood Alcohol level on Presentation? [PCS.BAL]: No Evidence of Increased Autonomic Activity (i.e. HR>120, tremor, sweating, agitation, nausea)?: Yes Result: 5 Time Spent Time spent with Patient: >75 minutes Time was spent: preparing to see the patient(eg.review tests), obtaining and/or reviewing separately otained hiistory, ordering medications,tests, procedures, referring, communicating with other health client care specialist, indepentently interpreting results and counseling the patient
[2022-09-07] MEDS: Gabapentin 300 MG CAP PO ×2 (02:05→21:57)
[2022-09-07] MEDS: MAGNESIUM SULFATE 2 GM/50 ML BAG IVPB (02:06)
[2022-09-07 02:14] LABS: D-Dimer 2285 ng/mlFEU (<500)
[2022-09-07] MEDS: Metoprolol CR 25 MG TABCR PO ×2 (02:14→21:57)
[2022-09-07] MEDS: Pantoprazole 40 MG VIAL IVP (02:15)
[2022-09-07] MEDS: Atorvastatin 20 MG TAB PO ×2 (02:17→21:56)
[2022-09-07] MEDS: Insulin Glargine 300 UNITS/3 ML PEN 44 UNITS SC ×2 (02:45→21:57)
[2022-09-07 06:11] LABS: Abs Immature Grans 0.05 10^3/uL (0.0-0.06); Absolute Basophil Count 0.05 10^3/uL (0.0-0.2); Absolute Eosinophil Count 0.24 10^3/uL (0.0-0.7); Absolute Lymphocyte Count 1.25 10^3/uL (1.2-3.4); Absolute Monocyte Count 0.87 10^3/uL (0.1-0.8); Absolute Neutrophil Count 10.02 10^3/uL (1.2-6.7); Basophils % 0.4; Eosinophils % 1.9; HCT 29.8 % (40.0-50.0); HGB 9.5 g/dL (13.5-17.5); Immature Grans % 0.4; MCH 27.2 pg (27.0-33.0); MCHC 31.9 % (32.0-36.0); MCV 85 fL (80-95); MPV 10.6 fL (8.0-11.0); Neutrophils % 80.3; Platelet Count 318 10^3/uL (130-400); RBC 3.49 10^6/uL (4.36-5.78); RDW 17.9 % (11.8-14.1); RDW-SD 55.9 fL; WBC 12.48 10^3/uL (4.4-10.8)
[2022-09-07 06:31] LABS: Hemoglobin A1C 7.9 % (<5.7)
[2022-09-07 06:33] LABS: Anion Gap 13.3 mmol/L (3-11); BUN 36 mg/dL (7-18); CO2 18.7 mmol/L (21.0-32.0); Calcium 8.5 mg/dL (8.5-10.1); Chloride 110 mmol/L (98-107); Estimated GFR 36.81 (mL/min/1.73m2); Glucose 202 mg/dL (74-106); Magnesium 1.8 mg/dL (1.8-2.4); Potassium 4.5 mmol/L (3.5-5.1); Sodium 142 mmol/L (136-145)
[2022-09-07] MEDS: Insulin Aspart 300 UNITS/3 ML PEN 10 UNITS SC ×3 (07:58→16:33)
[2022-09-07] MEDS: Insulin Aspart 300 UNITS/3 ML PEN SC ×3 (08:00→16:35)
[2022-09-07] MEDS: Thiamine 100 MG TAB PO (08:34)
[2022-09-07] MEDS: Pantoprazole 40 MG TABCR PO (08:34)
[2022-09-07] MEDS: DULoxetine 30 MG CAP 60 MG PO (08:34)
[2022-09-07] MEDS: Enoxaparin 100 MG/ML SYR SC (08:35)
[2022-09-07] MEDS: Multivitamin TAB 1 TAB PO (08:35)
[2022-09-07] MEDS: Folic Acid 1 MG TAB PO (08:35)
--- NOTE | 2022-09-07 10:17 | PDOC.CMIN ---
Date of service: 09/07/22 Time of Service: 10:17 Care Management Initial Assmt Initial Assessment REASON FOR HOSPITALIZATION:: Alcohol withdrawal PREVIOUS FUNCTIONAL STATUS/SOCIAL/FAMILY SUPPORTS:: Mina lives in [facility], alone. He stated that he recently secured his own apartment, after living in sober housing. He has two daughters, Rebeca and . He reported that he is retired and disabled. He is independent at baseline in the community. CURRENT FUNCTIONAL STATUS:: Mina was sitting up in bed when CM met with him. He stated that he is not feeling well. Per report, he is receiving phenobarb for alcohol withdrawal, and is being treated at ICU level of care due to his severe withdrawal symptoms. Mina was pleasant, although limited in conversation, due to his condition at the time of the conversation. He stated that he has HH RN, PT, and that he has a good relationship with his PCP. CM will continue to follow. ADVANCE DIRECTIVES:: Not on file, CM will offer forms. Has patient been provided with info about the portal/API?: Yes Did the patient sign up for the portal?: Yes CODE STATUS:: Full Code INSURANCE COVERAGE / FINANCIAL ISSUES:: [employer] MCR replacement, [employer] CURRENT HOME/COMMUNITY SERVICES/EQUIPMENT:: [facility] RN, PT PRIMARY CARE PHYSICIAN:: Mel Llamas POTENTIAL DISCHARGE NEEDS:: Evaluations for further needs, follow up appointments. PATIENT/FAMILY EDUCATION NEEDS:: Review discharge instructions and limitations, discussion of self care needs including 'ask me three'. ANTICIPATED BARRIERS TO DISCHARGE:: None. TRANSPORTATION:: Via private vehicle by friend vs RCT PLAN:: Anticipate Mina will return home once medically cleared. He will transport via private vehicle by friend vs RCT. He will follow up with his PCP and discharge plan of care. CM will continue to follow. PFSH All Active Problems (Updated 09/07/22 @ 01:17 by Toby Nuñez) Chest pain (Acute) Hypomagnesemia (Acute) Discharge planning issues (Acute) DVT prophylaxis (Acute) Elevated white blood cell count (Acute) Alcohol use disorder (Acute) Finger laceration (Acute) Alcohol withdrawal (Acute) Acute dehydration (Acute) Post-operative pain (Acute) Dehiscence of operative wound (Acute) Subsequent encounter Skin ulcer of scrotum (Acute) De Quervain's tenosynovitis, left (Acute) 40 mg Depo-Medrol injection: 04/04/2022 Metabolic acidosis (Acute) Essential hypertension (Acute) CKD (chronic kidney disease) stage 4, GFR 15-29 ml/min (Acute) Alcohol use disorder, moderate, in early remission (Acute ~12/2021) Antabuse RX Lamellar macular hole of both eyes (Acute 10/25/21) Type 1 diabetes, controlled, with neuropathy (Chronic ~05/2017) Adult onset, diagnosed 05/2017 [facility] End[address] Dr. Douglas--recommend GLP1 Personal goal A1C <7% Stage 3b chronic kidney disease (CKD) (Chronic) [facility] Nephro initial consult 07/2020; DMT1 & Solitary partial L kidney s/p nephrectomy due to renal cell cancer Secondary hyperparathyroidism (Acute ~05/2021) 05/29/21 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 Nephrology Lesion of bone of left forearm proximal radius lesion Osteoarthritis of elbows, bilateral Polyneuropathy associated with underlying disease DM Solitary left kidney [facility] Nephro (initial 07/2020); s/p nephrectomy on R 2004 renal cell cancer; partial nephrectomy on L 2007 Type 1 diabetes mellitus without complications Surgical History H/O arthroscopy of knee Remotely--both knees at some point; he cannot recall what, but thinks meniscal H/O partial nephrectomy (~04/2007) left H/O skin graft [facility] 07/12/22 Scrotal Abscess 07/15/22 Skin Graft with Bolster removal History of nephrectomy, right (~03/2004) Renal cell cancer Family History Mother , 54yo breast cancer Alcohol abuse Breast cancer Depression Substance abuse Father , ~70yo prostate cancer Alcohol abuse Prostate cancer Substance abuse Sister , throat caner (nicotine use) Alcohol abuse Cancer Cervical Substance abuse Social History Smoking/Tobacco Use Status: Never Smoking risk assessment performed?: Yes Alcohol Intake: current Alcohol Intake frequency: a few times a month Previous attempts at quittin Counseling given: Yes ([facility]) Drug use: Occasionally Substance use type: opiates Details: no IV drug use Adopted: No Caregiver/Support person: No Foster care: No Household members: other Details: Sober Living Facility Housing: house Number of Children: 4 number of grandchildren: 4 Communication Needs: None Education Level: college Do you need help understanding health information?: Rarely 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) Pets and animals: Yes Pets and animals: cat(s) Sexually active: No Do you think of yourself as: straight/heterosexual Current gender identity: male What is your relationship status?: How often do you talk on the phone with friends or family?: three or more times per week How often do you get together with friends or relatives?: three or more times per week How often do you attend roman catholic or zoroastrianism services?: 4 or more times per year Do you belong to any clubs or organized social groups?: no Panel score (0-1 are the most socially isolated patients): 2 What type of physical activity do you participate in: walking, bicycling and other Details: EXERCISE ON STATIONARY BIKE Duration: < 15 minutes/day Frequency: 3-4 times per week Erin/Scientologist: Shinto Agree to transfusion: No Seatbelt use: always Helmet use: Yes Drive intox or ride w/intox national van truck driver: No Water heater temp set <120 deg: Yes Working smoke detector in home: Yes Fire extinguisher in home: Yes Do you feel safe at home: Yes Do you feel safe in your relationship?: Yes
--- NOTE | 2022-09-07 10:19 | NUR.NOTE ---
Patient is sleeping comfortably.Nursing Note:
--- NOTE | 2022-09-07 12:49 | NUR.NOTE ---
Patient underwent a successful nuclear lung scan. Patient and RN were off unit for 1 hour and just returned to unit.Nursing Note:
--- NOTE | 2022-09-07 13:07 | DI.VRAD_ITS ---
PROCEDURE INFORMATION: Exam: [facility] Lung Ventilation and Perfusion Imaging Exam date and time: 09/07/2022 11:20 AM Age: 62 years old Clinical indication: Shortness of breath; Patient HX: Increased d-dimer, cp, SOB; Additional info: No recent surgery, no clotting history TECHNIQUE: Imaging protocol: Nuclear pulmonary ventilation with aerosol or gas was performed followed by perfusion. Radiopharmaceutical: 4.5 mCi Tc-99m MAA (Macroaggregated Albumin), IV. 35 mCi Tc-99m DTPA (DTPA Aerosol), Inhalation. COMPARISON: CR XR PORTABLE CHEST AP 09/06/2022 19:08 FINDINGS: Ventilation: Normal. No ventilation defects. Perfusion: Normal. No perfusion defects. IMPRESSION: Normal perfusion. No evidence of pulmonary embolism. Dictated and Authenticated by: Dimitri Winslow MD. Ordering:CARLOS Luis MD
[2022-09-07] MEDS: Lisinopril 2.5 MG TAB PO (13:40)
[2022-09-07] MEDS: Normal Saline 500 ML IV (13:47)
--- NOTE | 2022-09-07 14:04 | NUR.NOTE ---
Patient is easily arousable and makes sense when aroused. Patient is desirous of getting some sleep and hence will be allowed to sleep.Nursing Note:
--- NOTE | 2022-09-07 14:37 | W.PM.PROGNOT ---
Date of Service Date of service: 09/07/22 Time of Service: 14:39 Assessment and Plan Assessment and plan (1) Chest pain: Status: Acute Assessment and plan: He is clearly in alcohol withdrawal, but his initial presentation was for chest pain and this was well before withdrawal started. He is at risk for CAD, though his EKG and troponins are reassuring. D-dimer elevated. V/Q scan w/o vent. or perfusion mismatches. Continue cardiac monitoring. He is also at risk for gastric and esophageal pathology that could be etiology of his pain; continuePPI. (2) Alcohol withdrawal: Status: Acute Assessment and plan: Given chlordiazepoxide and lorazepam in the ED and some lorazepam. However phenobarbitol protocol preferred by hospitalist team for high risk patients, so transitioned to this. His total benzodiazepine dose was well below 20 lorazepam equivalents. (3) Stage 3b chronic kidney disease (CKD): Status: Chronic Assessment and plan: Borderline CKD3b/CKD4 at baseline. Despite some apparent dehydration on presentation, his creatinine was at baseline on presentation. Follow (4) Type 1 diabetes, controlled, with neuropathy: Status: Chronic Assessment and plan: Poor control with A1c >11% in June 2022. He is type 1 DM per endocrine but also on GLP-1 presumptively due to concurrent obesity. Continue basal/bolus insulin while inpatient. (5) Elevated white blood cell count: Status: Acute Assessment and plan: Initial concern for infection, but no clear infectious source found. Lactate improved with fluids. Will not continue antbiotics for now. WBC count improving Cultures are pending. If fevers or other signs of infection seen, will resume broach spectrum antibiotics and continue searching for a source. (6) Alcohol use disorder: Status: Acute Assessment and plan: He has been treated with disulfuram, though I would be concerned with safety of this medication given his chronic medical conditions particularly his CKD. Holding for now, review other options before discharge. (7) Hypertension: Status: Chronic Assessment and plan: Monitor on outpatient medication Qualifiers: Hypertension type: primary hypertension Qualified Code(s): I10 - Essential (primary) hypertension (8) Hypomagnesemia: Status: Acute Assessment and plan: Replace carefully given GFR (9) DVT prophylaxis: Status: Acute Assessment and plan: LMWH, renal dose if necessary per pharmacy (10) Discharge planning issues: Status: Acute Assessment and plan: Currently in ICU given severe withdrawal symtoms, need for close monitoring. Subjective Subjective Patient reports: afebrile; denies vomiting or shortness of breath Interval history since last seen: CIWA scores declining. Exam Narrative Exam Narrative: GEN: Asleep. NAD. LUNGS: CTAB with normal effort CV: RRR with no murmurs ABD: +BS, soft, NT/ND EXT: no edema. MSK: No joint redness or swelling Objective Last Vital Signs Temp 37.2 C 09/07/22 13:56 Pulse 103 H 09/07/22 13:56 Resp 16 09/07/22 13:56 BP 129/69 09/07/22 13:56 Pulse Ox 97 09/07/22 13:56 Laboratory Results - last 24 hr 09/06/22 09/06/22 09/06/22 18:00 18:00 18:00 WBC 19.43 H RBC 4.06 L Hgb 10.8 L Hct 33.9 L MCV 84 MCH 26.6 L MCHC 31.9 L RDW 17.6 H Plt Count 441 H MPV 10.4 Immature Gran % 0.5 Neutrophils % 70.6 Lymphocytes % 19.0 Monocytes % 6.9 Eosinophils % 2.5 Basophils % 0.5 Nucleated RBC % 0.0 Absolute Neutrophils 13.72 H Absolute Lymphocytes 3.69 H Absolute Monocytes 1.34 H Absolute Eosinophils 0.49 Absolute Basophils 0.10 PT 10.1 INR 1.0 APTT 24.3 D-Dimer VBG pH VBG pCO2 VBG pO2 VBG HCO3 VBG Total CO2 VBG O2 Saturation VBG Base Excess VBG Lactate Sodium 139 Potassium 3.6 Chloride 104 Carbon Dioxide 14.1 L Anion Gap 20.9 H BUN 41 H Creatinine 2.2 H Est GFR (CKD-EPI 2020) 32.83 Glucose 270 H Hemoglobin A1c Calcium 9.2 Phosphorus Magnesium 1.2 L Total Bilirubin 0.9 AST 15 ALT 15 L Alkaline Phosphatase 100 Troponin I < 50 NT-Pro-B Natriuret Pep 163 Total Protein 8.0 Albumin 3.5 Lipase 97 H TSH 2.47 Urine Color Urine Clarity Urine pH Ur Specific [place] Urine Protein Urine Ketones Urine Blood Urine Nitrite Urine Bilirubin Urine Urobilinogen Ur Leukocyte Esterase Urine RBC Urine WBC Ur Epithelial Cells Urine Crystals Urine Bacteria Urine Casts Urine Mucus Ur Culture Indicated? Urine Glucose Urine Opiates Screen Urine Methadone Screen Ur Barbiturates Screen Ur Tricyclics Screen Ur Amphetamines Screen U Benzodiazepines Scrn Urine Cocaine Screen Ur THC Screen Ethyl Alcohol COVID-19 Source SARS-CoV-2 (PCR) Influenza Type A (PCR) Influenza Type B (PCR) RSV (PCR) 09/06/22 09/06/22 09/06/22 18:00 18:57 18:57 WBC RBC Hgb Hct MCV MCH MCHC RDW Plt Count MPV Immature Gran % Neutrophils % Lymphocytes % Monocytes % Eosinophils % Basophils % Nucleated RBC % Absolute Neutrophils Absolute Lymphocytes Absolute Monocytes Absolute Eosinophils Absolute Basophils PT INR APTT D-Dimer 2285 H VBG pH 7.38 VBG pCO2 23 L VBG pO2 42 VBG HCO3 13 L VBG Total CO2 12 L VBG O2 Saturation 80 VBG Base Excess -12 L VBG Lactate Sodium Potassium Chloride Carbon Dioxide Anion Gap BUN Creatinine Est GFR (CKD-EPI 2020) Glucose Hemoglobin A1c Calcium Phosphorus Magnesium Total Bilirubin AST ALT Alkaline Phosphatase Troponin I NT-Pro-B Natriuret Pep Total Protein Albumin Lipase TSH Urine Color Urine Clarity Urine pH Ur Specific [place] Urine Protein Urine Ketones Urine Blood Urine Nitrite Urine Bilirubin Urine Urobilinogen Ur Leukocyte Esterase Urine RBC Urine WBC Ur Epithelial Cells Urine Crystals Urine Bacteria Urine Casts Urine Mucus Ur Culture Indicated? Urine Glucose Urine Opiates Screen Urine Methadone Screen Ur Barbiturates Screen Ur Tricyclics Screen Ur Amphetamines Screen U Benzodiazepines Scrn Urine Cocaine Screen Ur THC Screen Ethyl Alcohol 73.3 H COVID-19 Source SARS-CoV-2 (PCR) Influenza Type A (PCR) Influenza Type B (PCR) RSV (PCR) 09/06/22 09/06/22 09/06/22 18:57 18:57 21:30 WBC RBC Hgb Hct MCV MCH MCHC RDW Plt Count MPV Immature Gran % Neutrophils % Lymphocytes % Monocytes % Eosinophils % Basophils % Nucleated RBC % Absolute Neutrophils Absolute Lymphocytes Absolute Monocytes Absolute Eosinophils Absolute Basophils PT INR APTT D-Dimer VBG pH VBG pCO2 VBG pO2 VBG HCO3 VBG Total CO2 VBG O2 Saturation VBG Base Excess VBG Lactate 2.7 H* Sodium Potassium Chloride Carbon Dioxide Anion Gap BUN Creatinine Est GFR (CKD-EPI 2020) Glucose Hemoglobin A1c Calcium Phosphorus Magnesium Total Bilirubin AST ALT Alkaline Phosphatase Troponin I NT-Pro-B Natriuret Pep Total Protein Albumin Lipase TSH Urine Color Urine Clarity Urine pH Ur Specific [place] Urine Protein Urine Ketones Urine Blood Urine Nitrite Urine Bilirubin Urine Urobilinogen Ur Leukocyte Esterase Urine RBC Urine WBC Ur Epithelial Cells Urine Crystals Urine Bacteria Urine Casts Urine Mucus Ur Culture Indicated? Urine Glucose Urine Opiates Screen Negative Urine Methadone Screen Negative Ur Barbiturates Screen Negative Ur Tricyclics Screen Negative Ur Amphetamines Screen Negative U Benzodiazepines Scrn Negative Urine Cocaine Screen Negative Ur THC Screen Negative Ethyl Alcohol COVID-19 Source Nasopharynx SARS-CoV-2 (PCR) Negative Influenza Type A (PCR) Negative Influenza Type B (PCR) Negative RSV (PCR) Negative 09/06/22 09/06/22 09/06/22 21:30 22:00 22:28 WBC RBC Hgb Hct MCV MCH MCHC RDW Plt Count MPV Immature Gran % Neutrophils % Lymphocytes % Monocytes % Eosinophils % Basophils % Nucleated RBC % Absolute Neutrophils Absolute Lymphocytes Absolute Monocytes Absolute Eosinophils Absolute Basophils PT INR APTT D-Dimer VBG pH VBG pCO2 VBG pO2 VBG HCO3 VBG Total CO2 VBG O2 Saturation VBG Base Excess VBG Lactate Sodium 140 Potassium 3.8 Chloride 109 H Carbon Dioxide 15.6 L Anion Gap 15.4 H BUN 41 H Creatinine 2.1 H Est GFR (CKD-EPI 2020) 34.72 Glucose 258 H Hemoglobin A1c Calcium 7.8 L Phosphorus Magnesium Total Bilirubin AST ALT Alkaline Phosphatase Troponin I 56 NT-Pro-B Natriuret Pep Total Protein Albumin Lipase TSH Urine Color Yellow Urine Clarity Clear Urine pH 5.0 Ur Specific [place] 1.010 Urine Protein 100 H Urine Ketones Negative Urine Blood Negative Urine Nitrite Negative Urine Bilirubin Negative Urine Urobilinogen 0.2 Ur Leukocyte Esterase Negative Urine RBC Negative Urine WBC 3-5 Ur Epithelial Cells Few Urine Crystals Negative Urine Bacteria Few Urine Casts 0-2 Hyaline Urine Mucus Negative Ur Culture Indicated? No Urine Glucose 100 H Urine Opiates Screen Urine Methadone Screen Ur Barbiturates Screen Ur Tricyclics Screen Ur Amphetamines Screen U Benzodiazepines Scrn Urine Cocaine Screen Ur THC Screen Ethyl Alcohol COVID-19 Source SARS-CoV-2 (PCR) Influenza Type A (PCR) Influenza Type B (PCR) RSV (PCR) 09/06/22 09/06/22 09/07/22 22:28 22:28 05:30 WBC RBC Hgb Hct MCV MCH MCHC RDW Plt Count MPV Immature Gran % Neutrophils % Lymphocytes % Monocytes % Eosinophils % Basophils % Nucleated RBC % Absolute Neutrophils Absolute Lymphocytes Absolute Monocytes Absolute Eosinophils Absolute Basophils PT INR APTT D-Dimer VBG pH VBG pCO2 VBG pO2 VBG HCO3 VBG Total CO2 VBG O2 Saturation VBG Base Excess VBG Lactate 2.0 H Sodium Potassium Chloride Carbon Dioxide Anion Gap BUN Creatinine Est GFR (CKD-EPI 2020) Glucose Hemoglobin A1c 7.9 H Calcium Phosphorus 3.9 Magnesium Total Bilirubin AST ALT Alkaline Phosphatase Troponin I NT-Pro-B Natriuret Pep Total Protein Albumin Lipase TSH Urine Color Urine Clarity Urine pH Ur Specific [place] Urine Protein Urine Ketones Urine Blood Urine Nitrite Urine Bilirubin Urine Urobilinogen Ur Leukocyte Esterase Urine RBC Urine WBC Ur Epithelial Cells Urine Crystals Urine Bacteria Urine Casts Urine Mucus Ur Culture Indicated? Urine Glucose Urine Opiates Screen Urine Methadone Screen Ur Barbiturates Screen Ur Tricyclics Screen Ur Amphetamines Screen U Benzodiazepines Scrn Urine Cocaine Screen Ur THC Screen Ethyl Alcohol COVID-19 Source SARS-CoV-2 (PCR) Influenza Type A (PCR) Influenza Type B (PCR) RSV (PCR) 09/07/22 09/07/22 05:30 05:30 WBC 12.48 H RBC 3.49 L Hgb 9.5 L Hct 29.8 L MCV 85 MCH 27.2 MCHC 31.9 L RDW 17.9 H Plt Count 318 MPV 10.6 Immature Gran % 0.4 Neutrophils % 80.3 Lymphocytes % 10.0 Monocytes % 7.0 Eosinophils % 1.9 Basophils % 0.4 Nucleated RBC % 0.0 Absolute Neutrophils 10.02 H Absolute Lymphocytes 1.25 Absolute Monocytes 0.87 H Absolute Eosinophils 0.24 Absolute Basophils 0.05 PT INR APTT D-Dimer VBG pH VBG pCO2 VBG pO2 VBG HCO3 VBG Total CO2 VBG O2 Saturation VBG Base Excess VBG Lactate Sodium 142 Potassium 4.5 Chloride 110 H Carbon Dioxide 18.7 L Anion Gap 13.3 H BUN 36 H Creatinine 2.0 H Est GFR (CKD-EPI 2020) 36.81 Glucose 202 H Hemoglobin A1c Calcium 8.5 Phosphorus Magnesium 1.8 Total Bilirubin AST ALT Alkaline Phosphatase Troponin I NT-Pro-B Natriuret Pep Total Protein Albumin Lipase TSH Urine Color Urine Clarity Urine pH Ur Specific [place] Urine Protein Urine Ketones Urine Blood Urine Nitrite Urine Bilirubin Urine Urobilinogen Ur Leukocyte Esterase Urine RBC Urine WBC Ur Epithelial Cells Urine Crystals Urine Bacteria Urine Casts Urine Mucus Ur Culture Indicated? Urine Glucose Urine Opiates Screen Urine Methadone Screen Ur Barbiturates Screen Ur Tricyclics Screen Ur Amphetamines Screen U Benzodiazepines Scrn Urine Cocaine Screen Ur THC Screen Ethyl Alcohol COVID-19 Source SARS-CoV-2 (PCR) Influenza Type A (PCR) Influenza Type B (PCR) RSV (PCR) PAWSS Have you Been Recently Intoxicated or Drunk Within the Last 30 days?: Yes Have you Ever Experienced Previous Episodes of Alcohol Withdrawal?: Yes Have you ever Experienced Withdrawal Seizures?: Yes Have you ever Experienced Delirium Tremens(DT)s?: Yes Have you ever undergone Alcohol Rehabilitation Treatment (i.e, inpt ot outpatient treatment programs)?: Yes Have you ever Experienced Blackouts?: Yes Have you ever Combined Alcohol with other Downers within the last 90 days?: No Have you ever Combined Alcohol with any other Substance of Abuse during the last 90 days?: Unable to Obtain Positive Blood Alcohol level on Presentation? [PCS.BAL]: Yes Evidence of Increased Autonomic Activity (i.e. HR>120, tremor, sweating, agitation, nausea)?: Yes Result: 8 Time Spent with Patient Time Spent with Patient: 25-34 minutes Time was spent: preparing to see the patient(eg.review tests), obtaining and/or reviewing separately otained hiistory, ordering medications,tests, procedures, referring, communicating with other health district manager primary care sales, indepentently interpreting results and counseling the patient
--- NOTE | 2022-09-07 15:01 | NUR.NOTE ---
Patient is incontinent of large amount of liquid stool. Patient is cleaned and placed in a large brief. Patient able to ambulate to commode and complete liquidy bowel movement.Nursing Note:
--- NOTE | 2022-09-07 15:11 | NUR.NOTE ---
Ammonia Solution Preparer sees patient.Nursing Note:
--- NOTE | 2022-09-07 15:39 | NUR.NOTE ---
Patient now sleeping, Vital signs stable.Nursing Note:
--- NOTE | 2022-09-07 16:47 | NUR.NOTE ---
Nuclear Lung Ventilation and Perfusion test is negative.Nursing Note:
--- NOTE | 2022-09-07 16:48 | NUR.NOTE ---
Nuclear ventilation and perfusion test is negative for pulmonary embolism.Nursing Note:
--- NOTE | 2022-09-07 17:06 | NUR.NOTE ---
RN sets patient up with supper tray. Patient begins feeding himself.Nursing Note:
--- NOTE | 2022-09-07 18:11 | NUR.NOTE ---
Patient sleeping. Vital signs are stable.Nursing Note:
[2022-09-07] MEDS: Acetaminophen 325 MG TAB PO (21:57)
[2022-09-07] MEDS: PHENobarbital 130 MG/ML VIAL IVP (21:58)
[2022-09-08] VITALS (35 sets, daily range): BP systolic 88–127; BP diastolic 52–71; PULSE 76–129; RESP 14–44; TEMP 36.8–37.9; O2SAT 94–99
[2022-09-08 05:45] LABS: Abs Immature Grans 0.07 10^3/uL (0.0-0.06); Absolute Basophil Count 0.06 10^3/uL (0.0-0.2); Absolute Eosinophil Count 0.39 10^3/uL (0.0-0.7); Absolute Monocyte Count 1.28 10^3/uL (0.1-0.8); Absolute Neutrophil Count 12.85 10^3/uL (1.2-6.7); Basophils % 0.4; Eosinophils % 2.4; HCT 31.8 % (40.0-50.0); HGB 9.8 g/dL (13.5-17.5); Immature Grans % 0.4; Lymphocytes % 9.7; MCH 26.4 pg (27.0-33.0); MCHC 30.8 % (32.0-36.0); MCV 86 fL (80-95); Monocytes % 7.9; Neutrophils % 79.2; Platelet Count 293 10^3/uL (130-400); RBC 3.71 10^6/uL (4.36-5.78); RDW 17.7 % (11.8-14.1); RDW-SD 55.3 fL; WBC 16.23 10^3/uL (4.4-10.8)
[2022-09-08] MEDS: PHENobarbital 130 MG/ML VIAL IVP ×4 (05:55→17:10)
[2022-09-08 06:02] LABS: Absolute Lymphocyte Count 1.57 10^3/uL (1.2-3.4)
[2022-09-08 06:05] LABS: Anion Gap 11.7 mmol/L (3-11); BUN 28 mg/dL (7-18); CO2 19.3 mmol/L (21.0-32.0); CREATININE 1.9 mg/dL (0.70-1.30); Calcium 8.5 mg/dL (8.5-10.1); Chloride 109 mmol/L (98-107); Estimated GFR 39.15 (mL/min/1.73m2); Glucose 109 mg/dL (74-106); Potassium 3.8 mmol/L (3.5-5.1); Sodium 140 mmol/L (136-145)
[2022-09-08 08:47] LABS: C-Reactive Protein 6.78 mg/dL (0.0-0.3)
[2022-09-08] MEDS: Lisinopril 2.5 MG TAB PO (08:48)
[2022-09-08] MEDS: Pantoprazole 40 MG TABCR PO (08:48)
[2022-09-08] MEDS: DULoxetine 30 MG CAP 60 MG PO (08:48)
[2022-09-08] MEDS: Thiamine 100 MG TAB PO (08:48)
[2022-09-08] MEDS: Multivitamin TAB 1 TAB PO (08:49)
[2022-09-08] MEDS: Folic Acid 1 MG TAB PO (08:49)
[2022-09-08] MEDS: Normal Saline Flush 10 ML SYR IVP ×2 (08:51→17:10)
[2022-09-08] MEDS: Enoxaparin 40 MG/0.4 ML SYR SC (09:00)
[2022-09-08 09:35] LABS: Procalcitonin 0.5 ng/mL
--- NOTE | 2022-09-08 10:28 | PHA.REVIEW2 ---
Pharmacy Admission Review - Admission Clinical Review (Last Reviewed 09/07/22 @ 01:08 by Toby Nuñez) Chest pain (Acute) Hypomagnesemia (Acute) Discharge planning issues (Acute) DVT prophylaxis (Acute) Elevated white blood cell count (Acute) Alcohol use disorder (Acute) Alcohol withdrawal (Acute) Acute dehydration (Acute) lactose intolerant Adverse Reaction (Mild, Uncoded 08/21/22 08:46) Diarrhea Resuscitation Status Full Code Height 5 ft 11 in Weight 105.2 kg - Renal Dosing Renal Dosing: BUN 28 mg/dL (7-18) H 09/08/22 05:40 Creatinine 1.9 mg/dL (0.70-1.30) H 09/08/22 05:40 Medications needing adjustments: Reviewed (eCrCl 50 ml/min) List of meds needing interventions: eCrCl 50 ml/min - Anticoagulation Anticoagulation: Hgb 9.8 g/dL (13.5-17.5) L 09/08/22 05:40 Hct 31.8 % (40.0-50.0) L 09/08/22 05:40 Plt Count 293 10^3/uL (130-400) 09/08/22 05:40 INR 1.0 (0.9-1.1) 09/06/22 18:00 Creatinine 1.9 mg/dL (0.70-1.30) H 09/08/22 05:40 DVT Prophylaxis: Reviewed Medications: Enoxaparin - Opiate Usage Evaluate Pain Scale/Pains Meds: N/A - Relevant Labs Sodium 140 mmol/L (136-145) 09/08/22 05:40 Potassium 3.8 mmol/L (3.5-5.1) 09/08/22 05:40 Chloride 109 mmol/L (98-107) H 09/08/22 05:40 Phosphorus 3.9 mg/dL (2.6-4.7) 09/06/22 22:28 Magnesium 1.8 mg/dL (1.8-2.4) 09/07/22 05:30 C-Reactive Protein 6.78 mg/dL (0.0-0.3) H 09/08/22 05:40 Electrolytes, C-Reactive P, ESR: Reviewed - DM Control DM Control: Glucose 109 mg/dL (74-106) H 09/08/22 05:40 Hemoglobin A1c 7.9 % (<5.7) H 09/07/22 05:30 Finger Stick Blood Glucose 107 Finger Stick Blood Glucose 107 Finger Stick Blood Glucose 107 Finger Stick Blood Glucose 107 DM Control: Reviewed (type I, scheduled aspart + SS, 44 u of glargine at HS) - Cardiac Review Cardiac Review: Troponin I 56 ng/L (<or=60) 09/06/22 22:00 NT-Pro-B Natriuret Pep 163 pg/mL (<300) 09/06/22 18:00 BP, HR, EF%: Reviewed - Qtc Review QTc: N/A - IV to PO Switch IV Medications: Reviewed - Home Meds Home Med List reviewed: Reviewed Relevent Home Meds Not ordered & why?: not ordered: chlorthalidone -- lowest dose we carry = 25 mg so unable to supple 7.5mg dose, pt is on it due to hyperkalemia in the past but levels have been well WNL while here, will monitor - Current meds Current Medication Order Review: Reviewed (phenobarb load completed, IVP prn ordered and has needed 4 doses so far, will be beyond upper limit after 6 doses; WCB is elevated -- no clear source, surg consult placed)
[2022-09-08] MEDS: Insulin Aspart 300 UNITS/3 ML PEN SC ×2 (12:38→17:11)
[2022-09-08] MEDS: Insulin Aspart 300 UNITS/3 ML PEN 10 UNITS SC ×2 (12:54→17:12)
--- NOTE | 2022-09-08 13:03 | SCONE_ITS ---
Date of service: 09/08/22 Time of Service: 13:03 Assessment and Plan Assessment and plan (1) Alcohol withdrawal: Status: Acute Assessment and plan: Based on the presenting history, the normal LFTs, especially normal alk phos, and his current physical exam, I think the likelihood of acute cholecystitis is low. However, since his mental status is unreliable at this point, I will order an ultrasound of the right upper quadrant to rule out out. History of Present Illness History of Present Illness Chief Complaint: Chest pain Narrative: Mina is 62 years old, he came to the emergency department 2 days ago with a chief complaint of chest pain. He says he also had some shortness of breath at that time. Work-up was unremarkable for acute coronary syndrome, but he did have signs and symptoms consistent with acute alcohol withdrawal, and possibly delirium tremens. He was admitted to the hospital without his chief diagnosis. His mental status has deteriorated over the past few hours, and is now actively delirious. I was asked to see him because of some loose bowel movements, and the possibility of cholecystitis is differential diagnosis. During my exam with the patient, his history is unreliable. Some of the things that he says do not make any sense. However, he denies any abdominal pain. He recognizes that he has some diarrhea. He denies nausea, and in fact is quite hungry. When I ask whether or not he has had a nephrectomy in the past, he did say that he had an operation for kidney cancer. He confirms he has high blood pressure and diabetes, but he does not know much beyond that regarding medical history. He denies any significant family medical history. PFSH All Active Problems Chest pain (Acute) Hypomagnesemia (Acute) Discharge planning issues (Acute) DVT prophylaxis (Acute) Elevated white blood cell count (Acute) Alcohol use disorder (Acute) Finger laceration (Acute) Alcohol withdrawal (Acute) Acute dehydration (Acute) Post-operative pain (Acute) Dehiscence of operative wound (Acute) Subsequent encounter Skin ulcer of scrotum (Acute) De Quervain's tenosynovitis, left (Acute) 40 mg Depo-Medrol injection: 04/04/2022 Metabolic acidosis (Acute) Essential hypertension (Acute) CKD (chronic kidney disease) stage 4, GFR 15-29 ml/min (Acute) Alcohol use disorder, moderate, in early remission (Acute ~12/2021) Antabuse RX Lamellar macular hole of both eyes (Acute 10/25/21) Type 1 diabetes, controlled, with neuropathy (Chronic ~05/2017) Adult onset, diagnosed 05/2017 [facility] Endo Dr. Douglas--recommend GLP1 Personal goal A1C <7% Stage 3b chronic kidney disease (CKD) (Chronic) [facility] Nephro initial consult 07/2020; DMT1 & Solitary partial L kidney s/p nephrectomy due to renal cell cancer Secondary hyperparathyroidism (Acute ~05/2021) 05/29/21 [facility] Nephrology Elevated PSA (Acute) Family history of prostate cancer (Chronic) F Tubular adenoma of colon (Chronic) 08/2018 colonoscopy [facility]; recall 5y Hyperlipidemia (Chronic) Hypertension (Chronic) RX Lisinopril (stopped due to creatinine) Medical History Alcohol intoxication (~12/02/21) Bilateral carpal tunnel syndrome Carpal tunnel syndrome on both sides +[facility] 05/08/2020 Chronic gingivitis, plaque induced Dentist History of alcohol use disorder since 1989 with intermittent sobriety History of elevated PSA Per [facility] Records--01/14/2019 6.41, 04/28/2018 6.32; +Fam hx prostate cancer in F History of opioid abuse s/p surgeries; visiting brother 08/2021 ([facility] admission) History of renal cell cancer s/p nephrectomy Hyperkalemia (~05/2021) 05/29/21 [facility] Nephrology Lesion of bone of left forearm proximal radius lesion Osteoarthritis of elbows, bilateral Polyneuropathy associated with underlying disease DM Solitary left kidney [facility] Nephro (initial 07/2020); s/p nephrectomy on R 2004 renal cell cancer; partial nephrectomy on L 2007 Type 1 diabetes mellitus without complications Surgical History H/O arthroscopy of knee Remotely--both knees at some point; he cannot recall what, but thinks meniscal H/O partial nephrectomy (~04/2007) left H/O skin graft [facility] 07/12/22 Scrotal Abscess 07/15/22 Skin Graft with Bolster removal History of nephrectomy, right (~03/2004) Renal cell cancer Family History Mother , 54yo breast cancer Alcohol abuse Breast cancer Depression Substance abuse Father , ~70yo prostate cancer Alcohol abuse Prostate cancer Substance abuse Sister , throat caner (nicotine use) Alcohol abuse Cancer Cervical Substance abuse Social History Smoking/Tobacco Use Status: Never Smoking risk assessment performed?: Yes Alcohol Intake: current Alcohol Intake frequency: a few times a month Previous attempts at quittin Counseling given: Yes ([employer] [facility]) Drug use: Occasionally Substance use type: opiates Details: no IV drug use Adopted: No Caregiver/Support person: No Foster care: No Household members: other Details: [facility] Living Facility Housing: house Number of Children: 4 number of grandchildren: 4 Communication Needs: None Education Level: college Do you need help understanding health information?: Rarely 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) Pets and animals: Yes Pets and animals: cat(s) Sexually active: No Do you think of yourself as: straight/heterosexual Current gender identity: male What is your relationship status?: How often do you talk on the phone with friends or family?: three or more times per week How often do you get together with friends or relatives?: three or more times per week How often do you attend nondenominational or anglican services?: 4 or more times per year Do you belong to any clubs or organized social groups?: no Panel score (0-1 are the most socially isolated patients): 2 What type of physical activity do you participate in: walking, bicycling and other Details: EXERCISE ON STATIONARY BIKE Duration: < 15 minutes/day Frequency: 3-4 times per week Erin/Taoism: Advent Agree to transfusion: No Seatbelt use: always Helmet use: Yes Drive intox or ride w/intox transportation driver: No Water heater temp set <120 deg: Yes Working smoke detector in home: Yes Fire extinguisher in home: Yes Do you feel safe at home: Yes Do you feel safe in your relationship?: Yes Exam GI Other: His abdomen soft, and not distended. He has normal bowel sounds. He is got old healed surgical scars. There are no hernias. He has no tenderness in the mid epigastrium of the right upper quadrant. Results Last Vital Signs Temp 98.4 F 09/08/22 07:30 Pulse 117 H 09/08/22 09:14 Resp 22 09/08/22 09:14 BP 125/70 09/08/22 09:14 Pulse Ox 98 09/08/22 09:14 Labs 09/08/22 05:40 09/08/22 05:40 Labs: Laboratory Results - last 24 hr 09/08/22 09/08/22 09/08/22 05:40 05:40 05:40 WBC 16.23 H RBC 3.71 L Hgb 9.8 L Hct 31.8 L MCV 86 MCH 26.4 L MCHC 30.8 L RDW 17.7 H Plt Count 293 MPV 10.0 Immature Gran % 0.4 Neutrophils % 79.2 Lymphocytes % 9.7 Monocytes % 7.9 Eosinophils % 2.4 Basophils % 0.4 Nucleated RBC % 0.0 Absolute Neutrophils 12.85 H Absolute Lymphocytes 1.57 Absolute Monocytes 1.28 H Absolute Eosinophils 0.39 Absolute Basophils 0.06 Sodium 140 Potassium 3.8 Chloride 109 H Carbon Dioxide 19.3 L Anion Gap 11.7 H BUN 28 H Creatinine 1.9 H Est GFR (CKD-EPI 2020) 39.15 Glucose 109 H Calcium 8.5 C-Reactive Protein 6.78 H Procalcitonin 09/08/22 05:40 WBC RBC Hgb Hct MCV MCH MCHC RDW Plt Count MPV Immature Gran % Neutrophils % Lymphocytes % Monocytes % Eosinophils % Basophils % Nucleated RBC % Absolute Neutrophils Absolute Lymphocytes Absolute Monocytes Absolute Eosinophils Absolute Basophils Sodium Potassium Chloride Carbon Dioxide Anion Gap BUN Creatinine Est GFR (CKD-EPI 2020) Glucose Calcium C-Reactive Protein Procalcitonin 0.5
--- NOTE | 2022-09-08 13:31 | W.PM.PROGNOT ---
Date of Service Date of service: 09/08/22 Time of Service: 13:31 Assessment and Plan Assessment and plan (1) Chest pain: Status: Acute Assessment and plan: He is clearly in alcohol withdrawal, but his initial presentation was for chest pain and this was well before withdrawal started. He is at risk for CAD, though his EKG and troponins are reassuring. D-dimer elevated. V/Q scan w/o vent. or perfusion mismatches. Not concerns noted on cardiac monitoring; can now d/c. He is also at risk for gastric and esophageal pathology that could be etiology of his pain; continue PPI. (2) Alcohol withdrawal: Status: Acute Assessment and plan: Given chlordiazepoxide and lorazepam in the ED and some lorazepam. However phenobarbitol protocol preferred by hospitalist team for high risk patients, so transitioned to this. His total benzodiazepine dose was well below 20 lorazepam equivalents. Overall better but did have an episode of visual hallucinations, bugs on the ceiling, this afternoon. (3) Stage 3b chronic kidney disease (CKD): Status: Chronic Assessment and plan: Borderline CKD3b/CKD4 at baseline. Despite some apparent dehydration on presentation, his creatinine was at baseline on presentation. Creatinine 2.2 >>>1.9. Monitor. (4) Type 1 diabetes, controlled, with neuropathy: Status: Chronic Assessment and plan: Poor control with A1c >11% in June 2022. He is type 1 DM per endocrine but also on GLP-1 presumptively due to concurrent obesity. Continue basal/bolus insulin while inpatient. (5) Elevated white blood cell count: Status: Acute Assessment and plan: Initial concern for infection, but no clear infectious source found. Lactate improved with fluids. Will not continue antbiotics for now. WBC count improved then increased again. Procalcitonin of 0.5. Gen Surg evaluated for possible GB disease; no abd pain or fevers. + yellow stools with mucous. ? of colitis. Abd US ordered for tomorrow. (6) Alcohol use disorder: Status: Acute Assessment and plan: He has been treated with disulfuram, though I would be concerned with safety of this medication given his chronic medical conditions particularly his CKD. Holding for now, review other options before discharge. (7) Hypertension: Status: Chronic Assessment and plan: Monitor on outpatient medication Qualifiers: Hypertension type: primary hypertension Qualified Code(s): I10 - Essential (primary) hypertension (8) Hypomagnesemia: Status: Acute Assessment and plan: Replace carefully given GFR (9) DVT prophylaxis: Status: Acute Assessment and plan: LMWH, renal dose if necessary per pharmacy (10) Discharge planning issues: Status: Acute Assessment and plan: Currently in ICU given severe withdrawal symtoms, need for close monitoring. Subjective Subjective Patient reports: tolerating a regular diet (Has diminished appetite) and afebrile; denies nausea, vomiting or shortness of breath Exam Narrative Exam Narrative: GEN: Awake and conversant. NAD. LUNGS: CTAB with normal effort CV: RRR with no murmurs ABD: +BS, soft, NT/ND EXT: no edema. MSK: No joint redness or swelling Objective Last Vital Signs Temp 37.9 C H 09/08/22 11:30 Pulse 117 H 09/08/22 09:14 Resp 22 09/08/22 09:14 BP 125/70 09/08/22 09:14 Pulse Ox 98 09/08/22 09:14 Laboratory Results - last 24 hr 09/08/22 09/08/22 09/08/22 05:40 05:40 05:40 WBC 16.23 H RBC 3.71 L Hgb 9.8 L Hct 31.8 L MCV 86 MCH 26.4 L MCHC 30.8 L RDW 17.7 H Plt Count 293 MPV 10.0 Immature Gran % 0.4 Neutrophils % 79.2 Lymphocytes % 9.7 Monocytes % 7.9 Eosinophils % 2.4 Basophils % 0.4 Nucleated RBC % 0.0 Absolute Neutrophils 12.85 H Absolute Lymphocytes 1.57 Absolute Monocytes 1.28 H Absolute Eosinophils 0.39 Absolute Basophils 0.06 Sodium 140 Potassium 3.8 Chloride 109 H Carbon Dioxide 19.3 L Anion Gap 11.7 H BUN 28 H Creatinine 1.9 H Est GFR (CKD-EPI 2020) 39.15 Glucose 109 H Calcium 8.5 C-Reactive Protein 6.78 H Procalcitonin 09/08/22 05:40 WBC RBC Hgb Hct MCV MCH MCHC RDW Plt Count MPV Immature Gran % Neutrophils % Lymphocytes % Monocytes % Eosinophils % Basophils % Nucleated RBC % Absolute Neutrophils Absolute Lymphocytes Absolute Monocytes Absolute Eosinophils Absolute Basophils Sodium Potassium Chloride Carbon Dioxide Anion Gap BUN Creatinine Est GFR (CKD-EPI 2020) Glucose Calcium C-Reactive Protein Procalcitonin 0.5 PAWSS Have you Been Recently Intoxicated or Drunk Within the Last 30 days?: Yes Have you Ever Experienced Previous Episodes of Alcohol Withdrawal?: Yes Have you ever Experienced Withdrawal Seizures?: Yes Have you ever Experienced Delirium Tremens(DT)s?: Yes Have you ever undergone Alcohol Rehabilitation Treatment (i.e, inpt ot outpatient treatment programs)?: Yes Have you ever Experienced Blackouts?: Yes Have you ever Combined Alcohol with other Downers within the last 90 days?: No Have you ever Combined Alcohol with any other Substance of Abuse during the last 90 days?: Unable to Obtain Positive Blood Alcohol level on Presentation? [PCS.BAL]: Yes Evidence of Increased Autonomic Activity (i.e. HR>120, tremor, sweating, agitation, nausea)?: Yes Result: 8 Time Spent with Patient Time Spent with Patient: 25-34 minutes Time was spent: preparing to see the patient(eg.review tests), obtaining and/or reviewing separately otained hiistory, ordering medications,tests, procedures, referring, communicating with other health care program director and indepentently interpreting results
[2022-09-08] MEDS: OLANZapine 5 MG TAB PO (15:56)
[2022-09-08] MEDS: Atorvastatin 20 MG TAB PO (20:16)
[2022-09-08] MEDS: Acetaminophen 325 MG TAB PO (20:16)
[2022-09-08] MEDS: Gabapentin 300 MG CAP PO (20:23)
[2022-09-08] MEDS: Insulin Glargine 300 UNITS/3 ML PEN 44 UNITS SC (22:17)
[2022-09-09] VITALS (14 sets, daily range): BP systolic 90–134; BP diastolic 51–75; PULSE 98–143; RESP 19–30; TEMP 37.6; O2SAT 89–98
--- NOTE | 2022-09-09 | DI.RAD_ITS ---
Exam(s) XR HAND RT COMPLETE EXAM: XR HAND RT COMPLETE CLINICAL HISTORY: Right hand pain and decreased ROM. TECHNIQUE: 2D digital imaging was performed. COMPARISON: CR XR HAND LT COMPLETE from 10/31/2020 FINDINGS: 3 views No evidence of acute fracture or dislocation. No abnormal soft tissue calcifications. Mild dorsal s oft tissue swelling. No erosions. No radiopaque foreign bodies. IMPRESSION: No fractures evident. DATA REPOSITORY: RADIATION DOSE DELIVERED:
--- NOTE | 2022-09-09 | DI.US_ITS ---
Exam(s) US ABDOMEN EXAM: US ABDOMEN CLINICAL HISTORY: r/o cholecystitis TECHNIQUE: Ultrasound of complete upper abdomen performed using standard protocol. COMPARISON: US US RENAL from 06/22/[address] ABDOMEN PELVIS WO from 08/15/2022 FINDINGS: There is no ascites evident. LIVER: There are no hepatic lesions evident nor obvious dilatation of intrahepatic ducts. GALLBLADDER/BILIARY: Gallstones are noted. Gallbladder wall thickness is normal. No pericholecystic fluid. The common hepatic duct isnot dilated, measuring 3-4mm at the level of caitlin hepatis. PANCREAS: There is no evidence of pancreatic mass nor dilatation of the pancreatic duct. SPLEEN: The spleen is not enlarged and there are no intrasplenic lesions evident. KIDNEYS:Right kidney is surgically absent. In the superior pole the left kidney there is a partially exophytic 2.2 x 1.8 cm finding which has the appearance of a benign cyst and which corresponds to th e finding described on the recent CT scan of 08/15/2022. ABDOMINAL AORTA: There is no evidence of abdominal aortic aneurysm. IVC: Normal diameter where visualized. IMPRESSION: 1. Cholelithiasis, as also seen on recent CT scan of 08/15/2022. No evidence of obvious acute thiago cystitis. 2. There is a 2.2 x 1.8 cm benign-appearing cyst in the superior aspect of the left kidney, correspo nding to what was described on the recent noninfused CT scan. No solid lesions seen left kidney. Th e opposite-right kidney is surgically absent. 3. There is no ascites. DATA REPOSITORY:
[2022-09-09 07:16] LABS: Abs Immature Grans 0.09 10^3/uL (0.0-0.06); Absolute Eosinophil Count 0.26 10^3/uL (0.0-0.7); Absolute Lymphocyte Count 1.52 10^3/uL (1.2-3.4); Absolute Monocyte Count 1.18 10^3/uL (0.1-0.8); Basophils % 0.3; Eosinophils % 1.8; HCT 30.3 % (40.0-50.0); HGB 9.5 g/dL (13.5-17.5); Immature Grans % 0.6; Lymphocytes % 10.6; MCH 26.5 pg (27.0-33.0); MCHC 31.4 % (32.0-36.0); MCV 85 fL (80-95); MPV 10.5 fL (8.0-11.0); Monocytes % 8.2; Neutrophils % 78.5; Platelet Count 324 10^3/uL (130-400); RBC 3.58 10^6/uL (4.36-5.78); RDW 17.7 % (11.8-14.1); RDW-SD 55.8 fL; WBC 14.38 10^3/uL (4.4-10.8)
[2022-09-09 07:23] LABS: Absolute Basophil Count 0.04 10^3/uL (0.0-0.2); Absolute Neutrophil Count 11.29 10^3/uL (1.2-6.7)
[2022-09-09 07:30] LABS: Anion Gap 14.8 mmol/L (3-11); BUN 34 mg/dL (7-18); CO2 17.2 mmol/L (21.0-32.0); CREATININE 2.3 mg/dL (0.70-1.30); Calcium 8.9 mg/dL (8.5-10.1); Chloride 105 mmol/L (98-107); Estimated GFR 31.13 (mL/min/1.73m2); Glucose 158 mg/dL (74-106); Potassium 3.8 mmol/L (3.5-5.1); Sodium 137 mmol/L (136-145)
[2022-09-09] MEDS: DULoxetine 30 MG CAP 60 MG PO (07:44)
[2022-09-09] MEDS: Folic Acid 1 MG TAB PO (07:44)
[2022-09-09] MEDS: Enoxaparin 40 MG/0.4 ML SYR SC (07:44)
[2022-09-09] MEDS: Multivitamin TAB 1 TAB PO (07:44)
[2022-09-09] MEDS: Pantoprazole 40 MG TABCR PO (07:45)
[2022-09-09] MEDS: Lisinopril 2.5 MG TAB PO (07:45)
[2022-09-09] MEDS: Thiamine 100 MG TAB PO (07:45)
[2022-09-09] MEDS: Insulin Aspart 300 UNITS/3 ML PEN SC ×3 (07:54→16:48)
[2022-09-09] MEDS: Normal Saline 250 ML 500 ML IV ×3 (09:05→17:29)
[2022-09-09] MEDS: PHENobarbital 130 MG/ML VIAL IVP (09:24)
--- NOTE | 2022-09-09 10:52 | CMPROGNOTE_ITS ---
Date of service: 09/09/22 Time of Service: 10:52 Care Management Progress Note Progress Note Text Progress Note Text: S/O: Mina remains inpatient; treated for alcohol withdrawal. CM continues to follow; assistant football coach consult to be initiated when Mina is able to fully engage. A: 62 year old male admitted to [facility] 09/06/22 for alcohol withdrawal P: Mina will return home once medically cleared-assistant football coach to be offered when appropriate. He will transport via private vehicle by friend vs RCT. He will follow up with his PCP and discharge plan of care. CM will continue to follow.
[2022-09-09] MEDS: Propranolol 20 MG TAB PO ×2 (12:50→20:19)
[2022-09-09] MEDS: Insulin Aspart 300 UNITS/3 ML PEN 10 UNITS SC ×2 (12:50→16:48)
--- NOTE | 2022-09-09 16:29 | PGE_ITS ---
Date of Service Date of service: 09/09/22 Time of Service: 16:30 Assessment and Plan Assessment and plan (1) Chest pain: Status: Acute Assessment and plan: No recurrence. He is clearly in alcohol withdrawal, but his initial presentation was for chest pain and this was well before withdrawal started. He is at risk for CAD, though his EKG and troponins are reassuring. D-dimer elevated. V/Q scan w/o vent. or perfusion mismatches. Not concerns noted on cardiac monitoring; can now d/c. He is also at risk for gastric and esophageal pathology that could be etiology of his pain; continue PPI. (2) Alcohol withdrawal: Status: Acute Assessment and plan: Given chlordiazepoxide and lorazepam in the ED and some lorazepam. However phenobarbitol protocol preferred by hospitalist team for high risk patients, so transitioned to this. His total benzodiazepine dose was well below 20 lorazepam equivalents. Overall better but did have an episode of visual hallucinations, bugs on the ceiling. Has reached the hard stop for prn phenobarbital dosing. Initiated propanolol 20mg BID (holding metoprolol) for elevated HR and tremor. (3) Stage 3b chronic kidney disease (CKD): Status: Chronic Assessment and plan: Borderline CKD3b/CKD4 at baseline. Despite some apparent dehydration on presentation, his creatinine was at baseline on presentation. Creatinine 2.2 >>>1.9>>>2.3 Volume depletion likely etiology of ALEJANDRO seen now. Given x2 500ml NS boluses. Monitor. (4) Type 1 diabetes, controlled, with neuropathy: Status: Chronic Assessment and plan: Poor control at home with A1c >11% in June 2022. He is type 1 DM per endocrine but also on GLP-1 presumptively due to concurrent obesity. Continue basal/bolus insulin while inpatient and adjust as needed. (5) Elevated white blood cell count: Status: Acute Assessment and plan: Initial concern for infection, but no clear infectious source found. Improving. Lactate improved with fluids. Will not continue antbiotics for now. WBC count improved then increased again. Procalcitonin of 0.5; repeat in AM. Gen Surg evaluated for possible GB disease; no abd pain or fevers. + yellow stools with mucous. ? of colitis. Abd US: cholelithiasis (also seen on CT of 08/15). No evidence of obvious acute cholecystitis. (6) Alcohol use disorder: Status: Acute Assessment and plan: He has been treated with disulfuram, though I would be concerned with safety of this medication given his chronic medical conditions particularly his CKD. Holding for now, review other options before discharge. (7) Hypertension: Status: Chronic Assessment and plan: Monitor on outpatient medication Qualifiers: Hypertension type: primary hypertension Qualified Code(s): I10 - Essential (primary) hypertension (8) Hypomagnesemia: Status: Acute Assessment and plan: Replace carefully given GFR (9) DVT prophylaxis: Status: Acute Assessment and plan: LMWH, renal dose if necessary per pharmacy (10) Discharge planning issues: Status: Acute Assessment and plan: Currently in ICU given severe withdrawal symtoms, need for close monitoring. Subjective Subjective Patient reports: no new complaints, feels better, tolerating a regular diet (Eating better today), vomiting and afebrile; denies nausea or shortness of breath Exam Narrative Exam Narrative: GEN: Awake and conversant. NAD. LUNGS: CTAB with normal effort CV: RRR with no murmurs ABD: +BS, soft, NT/ND EXT: no edema. MSK: No joint redness or swelling Objective Last Vital Signs Temp 37.6 C H 09/09/22 11:52 Pulse 124 H 09/09/22 08:00 Resp 24 09/09/22 08:01 BP 104/58 L 09/09/22 08:00 Pulse Ox 96 09/09/22 08:01 Laboratory Results - last 24 hr 09/09/22 09/09/22 06:15 06:18 WBC 14.38 H RBC 3.58 L Hgb 9.5 L Hct 30.3 L MCV 85 MCH 26.5 L MCHC 31.4 L RDW 17.7 H Plt Count 324 MPV 10.5 Immature Gran % 0.6 Neutrophils % 78.5 Lymphocytes % 10.6 Monocytes % 8.2 Eosinophils % 1.8 Basophils % 0.3 Nucleated RBC % 0.0 Absolute Neutrophils 11.29 H Absolute Lymphocytes 1.52 Absolute Monocytes 1.18 H Absolute Eosinophils 0.26 Absolute Basophils 0.04 Sodium 137 Potassium 3.8 Chloride 105 Carbon Dioxide 17.2 L Anion Gap 14.8 H BUN 34 H Creatinine 2.3 H Est GFR (CKD-EPI 2020) 31.13 Glucose 158 H Calcium 8.9 PAWSS Have you Been Recently Intoxicated or Drunk Within the Last 30 days?: Yes Have you Ever Experienced Previous Episodes of Alcohol Withdrawal?: Yes Have you ever Experienced Withdrawal Seizures?: Yes Have you ever Experienced Delirium Tremens(DT)s?: Yes Have you ever undergone Alcohol Rehabilitation Treatment (i.e, inpt ot outpatient treatment programs)?: Yes Have you ever Experienced Blackouts?: Yes Have you ever Combined Alcohol with other Downers within the last 90 days?: No Have you ever Combined Alcohol with any other Substance of Abuse during the last 90 days?: Unable to Obtain Positive Blood Alcohol level on Presentation? [PCS.BAL]: Yes Evidence of Increased Autonomic Activity (i.e. HR>120, tremor, sweating, agitation, nausea)?: Yes Result: 8 Time Spent with Patient Time Spent with Patient: 25-34 minutes Time was spent: preparing to see the patient(eg.review tests), obtaining and/or reviewing separately otained hiistory, ordering medications,tests, procedures, referring, communicating with other health account executive healthcare, indepentently interpreting results, counseling the patient and care coordination
[2022-09-09 17:28] LABS: C Diff PCR Positive (Negative)
[2022-09-09] MEDS: Acetaminophen 325 MG TAB PO ×2 (17:59→20:25)
--- NOTE | 2022-09-09 18:03 | DI.VRAD_ITS ---
PROCEDURE INFORMATION: Exam: XR Right Hand Exam date and time: 09/09/2022 5:45 PM Age: 62 years old Clinical indication: Pain; Hand; Right; Additional info: Right hand pain and decreased rom TECHNIQUE: Imaging protocol: Radiologic exam of the right hand. Views: 3 or more views. COMPARISON: CR XR FOREARM RT 10/05/2020 9:37 AM FINDINGS: Bones/joints: Appropriate mineralization. Examination negative for fracture or dislocation. Soft tissues: Normal. IMPRESSION: No acute findings. Dictated and Authenticated by: Judson Tidwell MD. Ordering:FAVIAN Grossman MD
--- NOTE | 2022-09-09 18:46 | NUR.NOTE ---
Patients daughter called for an update. Patient verbally gave Ade Ayala RN and Tati Carrasco RN permission to give information.
--- NOTE | 2022-09-09 20:17 | W.PM.PROGNOT ---
Date of Service Date of service: 09/09/22 Time of Service: 20:51 Assessment and Plan Assessment and plan (1) Colitis due to Clostridium difficile: Status: Acute Assessment and plan: treatment w/ Dificid (2) Alcohol withdrawal: Status: Acute Assessment and plan: - Per hospitalist service (3) Acute dehydration: Status: Acute (4) Essential hypertension: Status: Acute (5) CKD (chronic kidney disease) stage 4, GFR 15-29 ml/min: Status: Acute (6) Alcohol use disorder, moderate, in early remission: Status: Acute (7) Lamellar macular hole of both eyes: Status: Acute (8) Type 1 diabetes, controlled, with neuropathy: Status: Chronic Assessment and plan: - Poorly controlled poorly controlled (9) Stage 3b chronic kidney disease (CKD): Status: Chronic (10) Secondary hyperparathyroidism: Status: Acute (11) Elevated PSA: Status: Acute (12) History of opioid abuse: (13) History of renal cell cancer: Assessment and plan: Status post nephrectomy Patient has an incidental finding of an exophytic lesion on the left kidney and this needs to be followed up with an MRI once he is medically stable. (14) Family history of prostate cancer: Status: Chronic (15) Tubular adenoma of colon: Status: Chronic (16) Hyperlipidemia: Status: Chronic Qualifiers: Hyperlipidemia type: mixed hyperlipidemia Qualified Code(s): E78.2 - Mixed hyperlipidemia (17) Hypertension: Status: Chronic Qualifiers: Hypertension type: primary hypertension Qualified Code(s): I10 - Essential (primary) hypertension (18) Microcytic anemia: Status: Acute (19) Kidney lesion, [place], left: Status: Acute Assessment and plan: - Was recently noted on a CT at [facility]. They recommended doing a MRI to follow-up. He does have a history of kidney cancer (20) Gallstones: Status: Acute Assessment and plan: - At this point I feel the lesions are clinically asymptomatic. He is not currently a candidate for anesthesia. 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 He was treated with Unasyn and vancomycin IV as an inpatient. He was treated with Augmentin and doxycycline as an outpatient. He wound up with a skin graft for the left testicle. Wound care regimen was Xeroform and Aquaphor to the skin graft site. An Allevyn to the donor site for 14 days (22) Type 1 diabetes mellitus without complications: (23) H/O skin graft: (24) History of nephrectomy, right: Subjective Subjective Interval history since last seen: Pt cannot answer questions at this time. Patient was sober for 6 or 7 months on disulfiram. He recently started drinking again. He was released from [facility] on 07/21. He had an episode of Yodit's gangrene. Wound cultures were positive for: AGUILAR a and actinomyces. ID treated him with Augmentin and Dr. Portillo until 07/28 Wound care: Xeroform and Aquaphor to left testicle skin graft site daily and as needed. Allevyn to donor place. Do not remove for 14 days Abduction pillow while in bed. Patient is complaining of chest pain. This was handled by the hospitalist service. Because of the right upper quadrant pain and diarrhea and history of type 1 diabetes an ultrasound was performed which does show gallstones. Patient is having voluminous diarrhea. He is positive for C. difficile. I think this is more likely the source of his diarrhea considering his extensive recent treatment with antibiotics for infection -He has also had a right nephrectomy for renal cancer. Objective Last Vital Signs Temp 37.6 C H 09/09/22 11:52 Pulse 123 H 09/09/22 16:00 Resp 19 09/09/22 16:00 BP 120/70 09/09/22 16:00 Pulse Ox 97 09/09/22 16:00 Laboratory Results - last 24 hr 09/09/22 09/09/22 09/09/22 06:15 06:18 16:34 WBC 14.38 H RBC 3.58 L Hgb 9.5 L Hct 30.3 L MCV 85 MCH 26.5 L MCHC 31.4 L RDW 17.7 H Plt Count 324 MPV 10.5 Immature Gran % 0.6 Neutrophils % 78.5 Lymphocytes % 10.6 Monocytes % 8.2 Eosinophils % 1.8 Basophils % 0.3 Nucleated RBC % 0.0 Absolute Neutrophils 11.29 H Absolute Lymphocytes 1.52 Absolute Monocytes 1.18 H Absolute Eosinophils 0.26 Absolute Basophils 0.04 Sodium 137 Potassium 3.8 Chloride 105 Carbon Dioxide 17.2 L Anion Gap 14.8 H BUN 34 H Creatinine 2.3 H Est GFR (CKD-EPI 2020) 31.13 Glucose 158 H Calcium 8.9 Stl C.difficile Tox PCR Positive A PAWSS Have you Been Recently Intoxicated or Drunk Within the Last 30 days?: Yes Have you Ever Experienced Previous Episodes of Alcohol Withdrawal?: Yes Have you ever Experienced Withdrawal Seizures?: Yes Have you ever Experienced Delirium Tremens(DT)s?: Yes Have you ever undergone Alcohol Rehabilitation Treatment (i.e, inpt ot outpatient treatment programs)?: Yes Have you ever Experienced Blackouts?: Yes Have you ever Combined Alcohol with other Downers within the last 90 days?: No Have you ever Combined Alcohol with any other Substance of Abuse during the last 90 days?: Unable to Obtain Positive Blood Alcohol level on Presentation? [PCS.BAL]: Yes Evidence of Increased Autonomic Activity (i.e. HR>120, tremor, sweating, agitation, nausea)?: Yes Result: 8 Time Spent with Patient Time Spent with Patient: 25-34 minutes Time was spent: preparing to see the patient(eg.review tests), obtaining and/or reviewing separately otained hiistory, ordering medications,tests, procedures, referring, communicating with other health palliative care specialist, indepentently interpreting results and care coordination
[2022-09-09] MEDS: Fidaxomicin 200 MG TAB PO (20:18)
[2022-09-09] MEDS: Atorvastatin 20 MG TAB PO (20:19)
[2022-09-09] MEDS: Gabapentin 300 MG CAP PO (20:19)
[2022-09-09] MEDS: Insulin Glargine 300 UNITS/3 ML PEN 50 UNITS SC (21:25)
[2022-09-10] VITALS (8 sets, daily range): BP systolic 92–120; BP diastolic 53–60; PULSE 91–109; RESP 21–25; TEMP 37.4
[2022-09-10 07:27] LABS: Anion Gap 14.6 mmol/L (3-11); BUN 39 mg/dL (7-18); CO2 17.4 mmol/L (21.0-32.0); CREATININE 2.6 mg/dL (0.70-1.30); Calcium 8.8 mg/dL (8.5-10.1); Chloride 103 mmol/L (98-107); Estimated GFR 26.87 (mL/min/1.73m2); Glucose 197 mg/dL (74-106); Potassium 3.6 mmol/L (3.5-5.1); Sodium 135 mmol/L (136-145)
[2022-09-10] MEDS: Multivitamin TAB 1 TAB PO (08:21)
[2022-09-10] MEDS: Enoxaparin 40 MG/0.4 ML SYR SC (08:21)
[2022-09-10] MEDS: Pantoprazole 40 MG TABCR PO (08:21)
[2022-09-10] MEDS: DULoxetine 30 MG CAP 60 MG PO (08:21)
[2022-09-10] MEDS: Folic Acid 1 MG TAB PO (08:21)
[2022-09-10] MEDS: Propranolol 20 MG TAB PO (08:21)
[2022-09-10] MEDS: Lisinopril 2.5 MG TAB PO (08:24)
[2022-09-10] MEDS: Thiamine 100 MG TAB PO (08:24)
[2022-09-10] MEDS: Insulin Aspart 300 UNITS/3 ML PEN 10 UNITS SC ×2 (08:56→12:02)
[2022-09-10] MEDS: Insulin Aspart 300 UNITS/3 ML PEN SC ×2 (08:56→12:02)
[2022-09-10] MEDS: Fidaxomicin 200 MG TAB PO (08:57)
--- NOTE | 2022-09-10 10:17 | IN_ITS ---
Date of service: 09/10/22 Time of Service: 09:40 PT Notes Visit Reasons: Alcohol Withdrawal Physical Therapy Inpatient Initial Evaluation Date: 09/10/2022 Referring Doctor: Chauncey Torrez MD PT Orders: PT CONSULT: Evla/treat Precautions: Fall. Standard. Activity as tolerated. Patient Profile/Admitting Diagnosis: Mina is a 62-year-old [id number] male who presented to the ED on 09/06/2022 due to chest pain and shortness of breath. Patient is admitted to the ICU for management of EtOH withdrawal, colitis due to C. 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 PMHX: All Active Problems?(Updated 09/07/22 @ 01:17 by Toby Nuñez) Chest pain (Acute) Hypomagnesemia (Acute) Discharge planning issues (Acute) DVT prophylaxis (Acute) Elevated white blood cell count (Acute) Alcohol use disorder (Acute) Finger laceration (Acute) Alcohol withdrawal (Acute) Acute dehydration (Acute) Post-operative pain (Acute) Dehiscence of operative wound (Acute) Subsequent encounter Skin ulcer of scrotum (Acute) De Quervain's tenosynovitis, left (Acute) 40 mg Depo-Medrol injection: 04/04/2022 Metabolic acidosis (Acute) Essential hypertension (Acute) CKD (chronic kidney disease) stage 4, GFR 15-29 ml/min (Acute) Alcohol use disorder, moderate, in early remission (Acute ~12/2021) Antabuse RX Lamellar macular hole of both eyes (Acute 10/25/21) Type 1 diabetes, controlled, with neuropathy (Chronic ~05/2017) Adult onset, diagnosed 05/2017 [facility] Endo Dr. Douglas--recommend GLP1 Personal goal A1C <7% Stage 3b chronic kidney disease (CKD) (Chronic) [facility] [place] Nephro initial consult 07/2020; DMT1 & Solitary partial L kidney s/p nephrectomy due to renal cell cancer Secondary hyperparathyroidism (Acute ~05/2021) 05/29/21 [facility] [place] Nephrology Elevated PSA (Acute) Family history of prostate cancer (Chronic) Tubular adenoma of colon (Chronic) 08/2018 colonoscopy [facility]; recall 5y Hyperlipidemia (Chronic) Hypertension (Chronic) RX Lisinopril (stopped due to creatinine) Medical History? Alcohol intoxication (~12/02/21) Bilateral carpal tunnel syndrome Carpal tunnel syndrome on both sides +[facility] [employer] 05/08/2020 Chronic gingivitis, plaque induced Dentist History of alcohol use disorder since 1989 with intermittent sobriety History of elevated PSA Per [place] Records--01/14/2019 6.41, 04/28/2018 6.32; +Fam hx prostate cancer in F History of opioid abuse s/p surgeries; visiting brother 08/2021 ([facility] admission) History of renal cell cancer s/p nephrectomy Hyperkalemia (~05/2021) 05/29/21 [facility] [place] Nephrology Lesion of bone of left forearm proximal radius lesion Osteoarthritis of elbows, bilateral Polyneuropathy associated with underlying disease DM Solitary left kidney [facility] [place] Nephro (initial 07/2020); s/p nephrectomy on R 2004 renal cell cancer; partial nephrectomy on L 2007 Type 1 diabetes mellitus without complications Surgical History? H/O arthroscopy of knee Remotely--both knees at some point; he cannot recall what, but thinks meniscalH/O partial nephrectomy (~04/2007) left H/O skin graft [facility] [place] 07/12/22 Scrotal Abscess 07/15/22 Skin Graft with Bolster removal History of nephrectomy, right (~03/2004) Renal cell cancer Social History/Home Situation: Lives alone in a private home. Independent with all aspects of ADLs prior to admission. Did not use any assistive device. Equipment Owned/DME: None Subjective: Reported pain and inability to grasp objects with R hand. Complained of pain in B knees with weight bearing. Reported fatigue with short distance ambulation. States that he has been weak since his surgery three weeks ago. Objective: General Observation: Supine in bed. Graft harvest site on left quad area healing well. R hand swollen and mildly erythematous. Mental Status: Alert and oriented as to person, place, time, and purpose. Able to pay attention, focus, and respond appropriately. Pain: 4-5/10 in in B knees and in R hand Vital Signs: Closely monitored by nursign staff ROM: Right Upper Extremity: Shoulder Flexion WFL. Shoulder abduction WFL. Elbow flexion WFL. Wrist flexion WFL. Functional opening and closing of hand WFL. Left Upper Extremity: Shoulder Flexion WFL. Shoulder abduction WFL. Elbow flexion WFL. Wrist flexion WFL. Functional opening and closing of hand WFL. Right Lower Extremity: Hip flexion WFL. Hip abduction WFL. Knee flexion WFL. Ankle dorsiflexion WFL. Ankle plantarflexion WFL. Left Lower Extremity: Hip flexion WFL. Hip abduction WFL. Knee flexion WFL. Ankle dorsiflexion WFL. Ankle plantarflexion WFL. Strength: Right Upper Extremity: Shoulder flexors 4-/5. Shoulder abductors 4-/5. Elbow flexors 4-/5. Elbow extensors 4-/5. Refund Clerk weak and minimally functional. Left Upper Extremity: Shoulder flexors 4-/5. Shoulder abductors 4-/5. Elbow flexors 4-/5. Elbow extensors 4-/5. Refund Clerk strong. Right Lower Extremity: Hip flexors 4-/5. Hip abductors 4-/5. Knee flexors 4/5. Knee extensors 4/5. Ankle dorsiflexors 4-/5. Ankle plantarflexors 4-/5. Left Lower Extremity: Hip flexors 4-/5. Hip abductors 4-/5. Knee flexors 4/5. Knee extensors 4/5. Ankle dorsiflexors 4-/5. Ankle plantarflexors 4-/5. Bed Mobility/Transfers: Rolling contact guard assist Supine to sit contact-guard assist with HOB at 30 degrees Sit to stand minimal assist, cues provided to use both hands for support Stand to sit contact-guard assist, cues provided to use both hands for support Bed to bedside commode minimal assist, cues provided to use both hands for support Bedside commode to bed minimal assist, cues provided to use both hands for support Bed to reclining chair minimal assist, cues provided to use both hands for support Reclining chair to bed minimal assist, cues provided to use both hands for support Gait: Instructed patient with level surface ambulation of 40 feet r+ 40 feet requiring contact guard assist and use of FWW. Priti decreased. Step height decreased. Step length decreased. Complained of pain in B knees that resolved with rest. Balance: Static Sitting: Normal Dynamic Sitting: Normal Static Standing: Fair Dynamic Standing: Fair Special Tests: Mobility Limitations Standardized Measure [facility] AM-PAC 6 clicks Basic Mobility Inpatient Short Form: Raw Score: 18 CMS Score: 47% deficit Informed Consent/Education: Patient was instructed in purpose of PT consult and plan of care. Agreeable to proceed with established PT POC to achieve personal goals. ASSESSMENT: Dylan requires the use of FWW for all transfer and ambulation task performance as well the assistance of one person and wheelchair follow for safety. His goal is to regain his independent ability with ambulation without any device per prior level of function. Unable to fully use R hand for walker handling due to pain and swelling. Provided assistance with use of commode and aftercare twice today for bowel movement. Will benefit from OT evaluation of R hand to regain full use of R hand. Patient presents with clinical signs and symptoms consistent with current/admitting diagnoses that have resulted to mobility limitations, gait instability, generalized weakness, and overall ADL decline as demonstrated by the following impairment level findings: 1. Decreased strength to B UE/LE major muscle groups 2. Impaired sitting/standing balance 3. Impaired activity tolerance 4. Limitation of joint range of motion in R hand 5. Shortness of breath 6. Pain and swelling of R hand Impairments are contributing to the following functional limitations: 1. Decline in bed mobility skills 2. Decline in transfer skills 3. Difficulty with ambulation without assistive device and physical assistance 4. Increased completion time for mobility ADL performance 5. Increased risk for falls 6. Difficulty with managing steps alone safely Patient is assessed as a 34949 moderate complexity based on the following: History: 62--year-old male with past medical history as indicated above Examination: Demonstrable impairment in strength, balance, and mobility level with underlying impairments and functional limitations as exhibited above as w ell as deficit score of 47% utilizing the [facility] Mobility Inpatient Short Form Presentation: Evolving Decision Makin moderate complexity Goals: Goals X1 week 1. Supine-Sit independent 2. Sit-Supine independent 3. Sit-Stand independent 4. Stand-Sit independent with no AD 5. Bed-Chair independent with no AD 6. Chair-Bed independent with no AD 7. Independent gait on level surface with use of SPC vs. FWW for at least 300 feet without report of pain nor dyspnea 8. Independent stair negotiation while holding onto B rails for at least 3 steps without report of pain nor dyspnea 9. Independent with home exercise program 10. Good static and dynamic standing balance/tolerance Plan of Care/Treatment Plan: 1-2x/day, 7 days/week x 1 week. Plan of care has been reviewed with the BOOSTER PUMP OPERATOR providing the service under Physical Therapy direction. Initiate Physical Therapy intervention for pain management as needed, strengthening, bed mobility, transfers, gait, stairs, balance training, and use of assistive device. DISCHARGE RECOMMENDATIONS: [] Home with no services [] [X] Home with services. Patient will benefit from home health PT services in order to progress mobility level using least restrictive assistive ambulatory device, assess home safety, identify additional equipment needs, and establish a functional maintenance program that will increase ability of patient to remain at home. [] Home with outpatient PT [] [] SNF for continued rehabilitation [] [] Level Vial Inspector Care [] [] SNF versus LTC based on ability to participate and progress [] TREATMENT CODE/TIME: 35626 x 20 minutes, 85971 x 16 minutes beginning at 9:40 AM. Thank you for the opportunity to participate in the care of this patient. Rosanna Julian PT, DPT, CLT [facility] [place], [place]
--- NOTE | 2022-09-10 13:39 | CMDISCH_ITS ---
Date of service: 09/10/22 Time of Service: 13:39 LACE Index Scoring Tool Questions: Length of Stay (in days): 4 - 6 Was the patient admitted via the E.D.?: Yes Comorbidities: Diabetes w/o Complication, Any Tumor and Liver or Renal Disease E.D. Visits: 3 Answers: Total Score: 15 Risk of Readmission: High Risk Care Management Discharge Plan Reason for Hospitalization: Alcohol withdrawal Discharge Plan: Mina will return home with a resumption of home health RN, PT, OT, MEDICAL RECORD SPECIALIST. He will meet with Deisi, a [facility] prior to discharge, for community follow up. He will transport via private vehicle Patient/Family Education Needs: Review discharge instructions, discuss Ask Me Three. Services Needed at Discharge: Home Health Care Services (Resume SN/PT/OT/MEDICAL RECORD SPECIALIST )
--- NOTE | 2022-09-10 14:45 | PGE_ITS ---
Date of Service Date of service: 09/10/22 Time of Service: 14:45 Assessment and Plan Assessment and plan (1) Colitis due to Clostridium difficile: Status: Acute Assessment and plan: treatment w/ Dificid (2) Alcohol withdrawal: Status: Acute Assessment and plan: - Per hospitalist service (3) Acute dehydration: Status: Acute (4) Essential hypertension: Status: Acute (5) CKD (chronic kidney disease) stage 4, GFR 15-29 ml/min: Status: Acute (6) Alcohol use disorder, moderate, in early remission: Status: Acute (7) Lamellar macular hole of both eyes: Status: Acute (8) Type 1 diabetes, controlled, with neuropathy: Status: Chronic Assessment and plan: - Poorly controlled poorly controlled (9) Stage 3b chronic kidney disease (CKD): Status: Chronic (10) Secondary hyperparathyroidism: Status: Acute (11) Elevated PSA: Status: Acute (12) History of opioid abuse: (13) History of renal cell cancer: Assessment and plan: Status post nephrectomy Patient has an incidental finding of an exophytic lesion on the left kidney and this needs to be followed up with an MRI once he is medically stable. (14) Family history of prostate cancer: Status: Chronic (15) Tubular adenoma of colon: Status: Chronic (16) Hyperlipidemia: Status: Chronic Qualifiers: Hyperlipidemia type: mixed hyperlipidemia Qualified Code(s): E78.2 - Mixed hyperlipidemia (17) Hypertension: Status: Chronic Qualifiers: Hypertension type: primary hypertension Qualified Code(s): I10 - Essential (primary) hypertension (18) Microcytic anemia: Status: Acute (19) Kidney lesion, [place], left: Status: Acute Assessment and plan: - Was recently noted on a CT at [facility]. They recommended doing a MRI to follow-up. He does have a history of kidney cancer (20) Gallstones: Status: Acute Assessment and plan: - At this point I feel the lesions are clinically asymptomatic. He is not currently a candidate for anesthesia. He is at high risk for developing acute cholecystitis given his poorly controlled diabetes Agree with above.. Currently I do not feel patient's symptoms stem from his gallstones. He is not medically stable for surgery. We will reevaluate at your request. Continue with medical management. (21) Dehiscence of operative wound: Status: Acute Assessment and plan: Skin graft is healing well. Some serous drainage noted. No open area's appreciated on exam. Will continue Aquacel Ag with ABD dressing. Dressing should be changed every other days. (22) Type 1 diabetes mellitus without complications: (23) H/O skin graft: (24) History of nephrectomy, right: Subjective Subjective Interval history since last seen: patient reports he is doing well and feels that his skin graft to his left scrotum is healing well. he states that he has been applying a silver strip and ABD per [facility] wound care recommendations. He denies any pain or swelling at this time. Exam Const General: cooperative, healthy appearing and comfortable Orientation: alert and awake Resp Effort & Inspection: normal respiratory effort, no audible wheezes and no cough Other: Left scrotum- skin graft noted. healthy granulation tissue. Inferior/posterior and lateral sides some serous drainage. No open area's appreciated on exam. No erythema, swelling or induration noted. Skin Other: Left Anterior thigh graft site- Fully epilithelized. No open area's appreciated. No need for dressings to this area. Objective Last Vital Signs Temp 37.4 C 09/10/22 09:05 Pulse 94 H 09/10/22 08:01 Resp 21 09/10/22 08:01 BP 120/60 09/10/22 08:01 Pulse Ox 97 09/09/22 16:00 Laboratory Results - last 24 hr 09/09/22 09/10/22 09/10/22 16:34 05:35 05:35 Sodium 135 L Potassium 3.6 Chloride 103 Carbon Dioxide 17.4 L Anion Gap 14.6 H BUN 39 H Creatinine 2.6 H Est GFR (CKD-EPI 2020) 26.87 Glucose 197 H Calcium 8.8 Procalcitonin 1.0 Stl C.difficile Tox PCR Positive A PAWSS Have you Been Recently Intoxicated or Drunk Within the Last 30 days?: Yes Have you Ever Experienced Previous Episodes of Alcohol Withdrawal?: Yes Have you ever Experienced Withdrawal Seizures?: Yes Have you ever Experienced Delirium Tremens(DT)s?: Yes Have you ever undergone Alcohol Rehabilitation Treatment (i.e, inpt ot outpatient treatment programs)?: Yes Have you ever Experienced Blackouts?: Yes Have you ever Combined Alcohol with other Downers within the last 90 days?: No Have you ever Combined Alcohol with any other Substance of Abuse during the last 90 days?: Unable to Obtain Positive Blood Alcohol level on Presentation? [PCS.BAL]: Yes Evidence of Increased Autonomic Activity (i.e. HR>120, tremor, sweating, agitation, nausea)?: Yes Result: 8 Time Spent with Patient Time Spent with Patient: 25-34 minutes Time was spent: preparing to see the patient(eg.review tests), obtaining and/or reviewing separately otained hiistory, ordering medications,tests, procedures, referring, communicating with other health client care representative, indepentently interpreting results, counseling the patient and care coordination
--- NOTE | 2022-09-10 14:57 | DSE_ITS ---
Date of service: 09/10/22 Time of Service: 14:57 DS: Diagnosis Discharge Diagnosis (1) Colitis due to Clostridium difficile: Status: Acute Asessment and Plan: Initiated Dificid 200mg BID; continue for a 10 day course. Immodium OTC prn. (2) Alcohol withdrawal: Status: Acute Asessment and Plan: Phenobarbital protocol utilized. He had a fairly smooth withdrawal. There was a short period of time when he experienced mild visual hallucinations. He would like to continue to abstain from alcohol. track coach requested. Cont MVI and thiamine. (3) Acute dehydration: Status: Acute Asessment and Plan: Resolved. (4) Essential hypertension: Status: Acute Asessment and Plan: Continue lisinopril. Now on a short 3 day course of propanolol and will hold metoprolol. Resume metoprolol after finishing propanolol course. (5) CKD (chronic kidney disease) stage 4, GFR 15-29 ml/min: Status: Acute Asessment and Plan: Stress diabetic control, etoh abstinence and adequate hydration. (6) Type 1 diabetes, controlled, with neuropathy: Status: Chronic Asessment and Plan: Cont basal/bolus insulin, diabetic diet. F/U with PCP with routine A1c testing. (7) History of renal cell cancer: Asessment and Plan: No evidence of recurrence. (8) Hyperlipidemia: Status: Chronic Asessment and Plan: Cont atorvastatin (9) Microcytic anemia: Status: Acute Asessment and Plan: Refraining from Etoh abuse should assist in resolution of his anemia. Watch for melena or hematochezia. (10) Gallstones: Status: Acute Asessment and Plan: No current pain secondary to gallstones. Low fat intake could be beneficial. (11) Dehiscence of operative wound: Status: Acute Asessment and Plan: Scrotal; h/o forniers gangrene. General surgery evaluated. No infection of surgical site. (12) History of nephrectomy, right: Asessment and Plan: Important that he maintains good habits that don't potentially harm his remaining kidney. Discharge Plan Disposition Patient Disposition: Home W/Home Health Services Condition: Improving Discharge Details Reason For Visit: Alcohol Withdrawal Admit Date/Time: 09/06/22 22:55 Admit Provider: Chauncey Torrez Attending Provider: Chauncey Torrez Primary Care Provider: Mel Llamas Hospital Course Hospital Course: 62 yo M with CKD3b, BMI 38, poorly controlled diabetes, and alcohol use disorder who presented to the emergency room in the evening of 09/06/22 feeling chest pain, shortness of breath, and heart racing.? Onset sudden while sitting watching television and drinking at around 2:30 pm.? He had never had those symptoms before so he called EMS.? Pain sharp, mid sternum, moderate to severe.? He still feels the pain though less intense.? Feels different than heartburn.? It did make him feel lightheaded, still feels that way.? No nausea/vomiting.? No fevers, though he feels cold now.? He drinks 1 gallon of liquor a day.? He had drinking 1/2 gallon the day of admission.? He has been though withdrawal before but denies h/o seizures.? He was last sober about 6 months ago for 6-7 months.? His pcp had prescribed disulfuram but he was not taking it. ? No recent medication changes.? no recent surgical procedures or other injurys, no recent long trips.? See Diagnosis PCP follow up in 1-2 weeks Home Meds and New Rx's Prescriptions: New Dificid 200 mg Tablet 200 mg PO BID Qty: 20 0RF multivitamin [Multiple Vitamins] Tablet 1 tab PO QAM Qty: 0 0RF propranolol 20 mg Tablet 20 mg PO BID Qty: 10 0RF thiamine mononitrate (vit B1) [Vitamin B-1 (mononitrate)] 100 mg Tablet 100 mg PO QAM Qty: 0 0RF Continued acetaminophen [Tylenol] 325 mg tablet 975 mg PO ONCE PRN Lantus Solostar U-100 Insulin 100 unit/mL (3 mL) insulin pen 44 unit subcut HS MDD 46 units daily Qty: 45 3RF Rx Instructions: DMT1 duloxetine 60 mg capsule,delayed release(DR/EC) See Rx Instructions .ROUTE .COMPLEX Qty: 90 3RF Dose Instruction: TAKE 1 CAPSULE BY MOUTH EVERY MORNING Rx Instructions: TAKE 1 CAPSULE BY MOUTH EVERY MORNING Trulicity 0.75 mg/0.5 mL pen injector See Rx Instructions .ROUTE .COMPLEX Qty: 6 0RF Dose Instruction: INJECT 0.5ML UNDER THE SKIN ONCE WEEKLY Rx Instructions: INJECT 0.5ML UNDER THE SKIN ONCE WEEKLY naproxen 375 mg tablet,delayed release (DR/EC) 375 mg PO .with dinner Qty: 14 0RF Rx Instructions: Post-op pain insulin lispro [Humalog KwikPen Insulin] 100 unit/mL insulin pen 12 - 15 unit subcut TID PRN Patient Comments: 03/06/20 PER PT, SLIDING SCALE - MINIMUM OF 12U Rx Instructions: tid with meals per sliding to keep AIC below 7.0 chlorthalidone 15 mg tablet 7.5 mg PO DAILY Patient Comments: 05/29/21 visit lisinopril 2.5 mg tablet 2.5 mg PO DAILY Patient Comments: 05/29/21 office visit baking soda PO Rx Instructions: 1/2 teaspoon per day due to metabolic acidosis atorvastatin 20 mg tablet See Rx Instructions .ROUTE .COMPLEX Qty: 90 3RF Dose Instruction: TAKE 1 TABLET BY MOUTH EVERY NIGHT AT BEDTIME FOR CHOLESTEROL OR DIABETES Rx Instructions: TAKE 1 TABLET BY MOUTH EVERY NIGHT AT BEDTIME FOR CHOLESTEROL OR DIABETES gabapentin 300 mg capsule See Rx Instructions .ROUTE .COMPLEX Qty: 90 0RF Dose Instruction: TAKE 1 CAPSULE BY MOUTH AT BEDTIME NEEDED FOR NERVE PAIN INLEGS Rx Instructions: TAKE 1 CAPSULE BY MOUTH AT BEDTIME NEEDED FOR NERVE PAIN INLEGS Held metoprolol succinate 25 mg tablet extended release 24 hr 25 mg PO HS Qty: 90 3RF Hold Instructions: Resume after finishing propanolol course. Discontinued disulfiram 250 mg tablet 250 mg PO DAILY Qty: 90 1RF oxycodone 5 mg tablet 2.5 - 5 mg PO BID MDD 10mg/24h PRN (Reason: pain) Qty: 10 0RF Rx Instructions: SEVERE post-op pain (final RX) No Action (DME) lancets Misc See Rx Instructions .MEDSUPPLY Rx Instructions: As directed to check blood glucose four times daily. On insulin. Dispense covered brand. (DME) OneTouch Verio test strips Strip See Rx Instructions .ROUTE .COMPLEX Qty: 400 0RF Dose Instruction: USE TO TEST BLOOD GLUCOSE FOUR TIMES DAILY Rx Instructions: USE TO TEST BLOOD GLUCOSE FOUR TIMES DAILY (DME) pen needle, diabetic [BD Ultra-Fine Doreen Pen Needle] 32 gauge x 5/32 needle See Rx Instructions .ROUTE .MEDSUPPLY Qty: 360 3RF Rx Instructions: BD Ultrafine 32G X 6mm, 4x/day for goal A1C<7 for E10.9 (DME) Dexcom G7 Cleaner Greaser Misc See Rx Instructions .ROUTE Qty: 1 0RF Rx Instructions: As directed (DME) Dexcom G7 Sensor Device See Rx Instructions .ROUTE Qty: 1 0RF Rx Instructions: As directed Discharge Instructions Instructions: C. Diff (Clostridioides Difficile) Infection in Children (GEN) Additional Instructions: Immodium [id number] prn loose stool. Referrals: Mel Llamas TRANSPORTATION SUPERINTENDENT [Primary Care Provider] - 09/24/22 10:45 am Activity:: Activity as Tolerated Equipment/Supplies:: Walker Diet:: Diabetic Discharge Orders Discharge Orders: Discharge Order (Routine); Ordered 09/10/22 Ordered By: Chuancey Torrez DS: Summary Time Spent with Patient providing and/or coordinating discharge services: Greater than 30 minutes Status at Discharge Functional status at discharge: uses cane/walker Overall status at discharge: patient is progressing back to baseline Mental Status: mental status grossly normal Speech and Movement: speech clear Mood: congruent mood Affect: normal affect Exam Narrative Exam Narrative: GEN: Awake and conversant. NAD. LUNGS: CTAB with normal effort CV: RRR with no murmurs ABD: +BS, soft, NT/ND EXT: no edema. MSK: No joint redness or swelling Psych Mental Status: mental status grossly normal Speech and Movement: speech clear Mood: congruent mood Affect: normal affect DS: Data Vitals/I&O Vitals and I&O: Vital Signs Temperature 37.4 C 09/10/22 09:05 Temperature Source Temporal Artery Scan 09/10/22 09:05 Pulse 94 H 09/10/22 08:01 Pulse Rhythm Regular 09/10/22 07:30 Pulse 96 H 09/10/22 08:01 Respiratory Rate 21 09/10/22 08:01 Respiratory Effort Normal, Non-Labored 09/10/22 07:30 Respiratory Depth Normal 09/10/22 07:30 Respiratory Pattern Normal 09/10/22 07:30 Blood Pressure 120/60 09/10/22 08:01 Blood Pressure Mean 72 09/10/22 08:01 Blood Pressure Position Supine 09/07/22 17:52 Pulse Oximetry 97 09/09/22 16:00 Oxygen Delivery Method Room Air 09/08/22 20:12 Oxygen Flow Rate 0 09/08/22 20:12 Pain Level 5 09/09/22 17:59 Intake & Output 09/09/22 09/10/22 09/10/22 23:59 11:59 23:59 Intake Total 1040 / 1290 480 / 480 Output Total 400 / 400 Balance 1040 / 1290 80 / 80 Intake: IV 500 / 750 Oral 540 / 540 480 / 480 Output: Urine 400 / 400 Other: Urine Color Light Vanessa Urine Appearance Clear Stool Size Large Stool Characteristics Liquid Voiding Methods Urinal Data Completed and Pending Labs on day of discharge: Labs from last 24 hours 09/10/22 09/10/22 09/09/22 05:35 05:35 16:34 Sodium 135 L Potassium 3.6 Chloride 103 Carbon Dioxide 17.4 L Anion Gap 14.6 H BUN 39 H Creatinine 2.6 H Est GFR (CKD-EPI 2020) 26.87 Glucose 197 H Calcium 8.8 Procalcitonin 1.0 Stl C.difficile Tox PCR Positive A Preliminary micro results at discharge 09/06/22 19:06 Blood Culture - Preliminary Blood NO GROWTH 72 HOURS 09/06/22 19:00 Blood Culture - Preliminary Blood NO GROWTH 72 HOURS PFSH All Active Problems Gallstones (Acute) Kidney lesion, [place], left (Acute) Microcytic anemia (Acute) Colitis due to Clostridium difficile (Acute) Chest pain (Acute) Hypomagnesemia (Acute) Discharge planning issues (Acute) DVT prophylaxis (Acute) Elevated white blood cell count (Acute) Alcohol use disorder (Acute) Finger laceration (Acute) Alcohol withdrawal (Acute) Acute dehydration (Acute) Post-operative pain (Acute) Dehiscence of operative wound (Acute) Subsequent encounter Skin ulcer of scrotum (Acute) De Quervain's tenosynovitis, left (Acute) 40 mg Depo-Medrol injection: 04/04/2022 Metabolic acidosis (Acute) Essential hypertension (Acute) CKD (chronic kidney disease) stage 4, GFR 15-29 ml/min (Acute) Alcohol use disorder, moderate, in early remission (Acute ~12/2021) Antabuse RX Lamellar macular hole of both eyes (Acute 10/25/21) Type 1 diabetes, controlled, with neuropathy (Chronic ~05/2017) Adult onset, diagnosed 05/2017 [facility] Endo Dr. 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 Secondary hyperparathyroidism (Acute ~05/2021) 05/29/21 [facility] [place] Nephrology Elevated PSA (Acute) Family history of prostate cancer (Chronic) F Tubular adenoma of colon (Chronic) 08/2018 colonoscopy [facility]; recall 5y Hyperlipidemia (Chronic) Hypertension (Chronic) RX Lisinopril (stopped due to creatinine) Medical History Alcohol intoxication (~12/02/21) Bilateral carpal tunnel syndrome Carpal tunnel syndrome on both sides +[facility] 05/08/2020 Chronic gingivitis, plaque induced Dentist History of alcohol use disorder since 1989 with intermittent sobriety History of elevated PSA Per [facility] Records--01/14/2019 6.41, 04/28/2018 6.32; +Fam hx prostate cancer in F History of opioid abuse s/p surgeries; visiting brother 08/2021 ([facility] admission) History of renal cell cancer s/p nephrectomy Hyperkalemia (~05/2021) 05/29/21 [facility] [place] Nephrology Lesion of bone of left forearm proximal radius lesion Osteoarthritis of elbows, bilateral Polyneuropathy associated with underlying disease DM Solitary left kidney [facility] [place] Nephro (initial 07/2020); s/p nephrectomy on R 2004 renal cell cancer; partial nephrectomy on L 2007 Type 1 diabetes mellitus without complications Surgical History H/O arthroscopy of knee Remotely--both knees at some point; he cannot recall what, but thinks meniscal H/O partial nephrectomy (~04/2007) left H/O skin graft [facility] [place] 07/12/22 Scrotal Abscess 07/15/22 Skin Graft with Bolster removal History of nephrectomy, right (~03/2004) Renal cell cancer Family History Mother , 54yo breast cancer Alcohol abuse Breast cancer Depression Substance abuse Father , ~70yo prostate cancer Alcohol abuse Prostate cancer Substance abuse Sister , throat caner (nicotine use) Alcohol abuse Cancer Cervical Substance abuse Social History Smoking/Tobacco Use Status: Never Smoking risk assessment performed?: Yes Alcohol Intake: current Alcohol Intake frequency: a few times a month Previous attempts at quittin Counseling given: Yes ([facility]) Drug use: Occasionally Substance use type: opiates Details: no IV drug use Adopted: No Caregiver/Support person: No Foster care: No Household members: other Details: Sober Living Facility Housing: house Number of Children: 4 number of grandchildren: 4 Communication Needs: None Education Level: college Do you need help understanding health information?: Rarely 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) Pets and animals: Yes Pets and animals: cat(s) Sexually active: No Do you think of yourself as: straight/heterosexual Current gender identity: male What is your relationship status?: How often do you talk on the phone with friends or family?: three or more times per week How often do you get together with friends or relatives?: three or more times per week How often do you attend adventist or rastafarian services?: 4 or more times per year Do you belong to any clubs or organized social groups?: no Panel score (0-1 are the most socially isolated patients): 2 What type of physical activity do you participate in: walking, bicycling and other Details: EXERCISE ON STATIONARY BIKE Duration: < 15 minutes/day Frequency: 3-4 times per week Erin/Confucianist: Nondenominational Agree to transfusion: No Seatbelt use: always Helmet use: Yes Drive intox or ride w/intox corporate driver: No Water heater temp set <120 deg: Yes Working smoke detector in home: Yes Fire extinguisher in home: Yes Do you feel safe at home: Yes Do you feel safe in your relationship?: Yes Time Spent with Patient Time Spent with Patient: 45-69 minutes Time was spent: preparing to see the patient(eg.review tests), obtaining and/or reviewing separately otained hiistory, referring, communicating with other health careers adviser, indepentently interpreting results, counseling the patient and care coordination
--- NOTE | 2022-09-10 16:11 | PT.INNT ---
Date of service: 09/10/22 Time of Service: 16:05 PT Notes Visit Reasons: Alcohol Withdrawal Patient needs a FWW for home. This therapist delivered one to patient's room, patient signed [facility] form. Patient was preparing for discharge, no therapy at this time.
--- NOTE | 2022-09-10 16:13 | PDOC.HHF2F ---
Home Health Referral Home Health Orders Clinical synopsis of why skilled professionals are needed: Alcohol withdrawal completed. Developed C.Diff colitis. Noted to have weakness in legs and unsteady gait. Medical diagnosis necessitation home health referral: C.Diff colitis. Alcohol abuse disorder s/p withdrawal. Lower extremity weakness secondary to hospitalization/relative immobility DM; poorly controlled. Registered Nurse: Check all that apply Instruct on new or changed medication(s)/assess compliance: Ordered Physical Therapist: Check all that apply Increase strength & endurance for safe mobility at home: Ordered To design/establish home maintenance program: Ordered Occupational Therapist: Evaluate and treat for patient unable to perform ADL/IADL/self-care: Ordered Upper extremity strengthening, range and motion: Ordered Counselor Education Professor: Assist with community resources: Ordered Home Bound Status Requires the aid of supportive device (check all that apply): Walker Assistance of another person (Describe assistance and medical necessity): Due to lower extremity weakness and gait instability. Describe why leaving home would require a considerable and taxing effort: Requires frequent rest periods Encounter Date and Reason: I certify that a FTF encounter for this patient was performed on September 10, 2022 and that such encounter was related to the primary reason the patient requires home health services. The encounter was conducted in the following manner: By me as the certifying physician, REGISTERED LAND SURVEYOR, PA or By an inpatient physician, REGISTERED LAND SURVEYOR or PA during an inpatient stay who communicated findings to me, Certification And Authentication I certify that I composed the above information based on my clinical judgment relating to this patient's medical condition and, if applicable, clinical findings communicated to me by the NPP or inpatient physician who performed the FTF encounter. Name of Provider that will be monitoring home health services: Chauncey Torrez
== END 2022-09-10 16:20 | disposition home health service (06) | DRG 897 ==
LOC: ER 23:17 → ICU 09-07 00:20
PROVIDERS: Family Medicine; Admitting Provider Family Medicine; Emergency Provider Emergency Medicine; PCP Nurse Practitioner Adult Health; Visit Provider Family Medicine
DX: F10.132 Alcohol abuse with withdrawal with perceptual disturbance (principal); E87.20 Acidosis, unspecified; N25.81 Secondary hyperparathyroidism of renal origin; A04.72 Enterocolitis due to Clostridium difficile, not specified as recurrent; N18.4 Chronic kidney disease, stage 4 (severe); T81.31XA Disruption of external operation (surgical) wound, not elsewhere classified, initial encounter; R07.89 Other chest pain; E86.0 Dehydration; E10.22 Type 1 diabetes mellitus with diabetic chronic kidney disease; E10.40 Type 1 diabetes mellitus with diabetic neuropathy, unspecified; Z79.4 Long term (current) use of insulin; Z79.85 Long-term (current) use of injectable non-insulin antidiabetic drugs; I12.9 Hypertensive chronic kidney disease with stage 1 through stage 4 chronic kidney disease, or unspecified chronic kidney disease; E10.65 Type 1 diabetes mellitus with hyperglycemia; E83.42 Hypomagnesemia; D72.829 Elevated white blood cell count, unspecified; E78.5 Hyperlipidemia, unspecified; Z85.528 Personal history of other malignant neoplasm of kidney; Z90.5 Acquired absence of kidney; R79.1 Abnormal coagulation profile; F11.11 Opioid abuse, in remission; H35.343 Macular cyst, hole, or pseudohole, bilateral; E78.2 Mixed hyperlipidemia; D50.9 Iron deficiency anemia, unspecified; K80.20 Calculus of gallbladder without cholecystitis without obstruction; N28.89 Other specified disorders of kidney and ureter
CPT/HCPCS: 36415; 78582; 80048; 80053; 80307; 82805; 83690; 84145; 87040; 87493; 87637; 93005; 97162; 97530; 99222; J1650; 71045; 73130; 76700; 80320; 81003; 81015; 83036; 83605; 83735; 83880; 84100; 84443; 84484; 85025; 85379; 85610; 85730; 86140; 93010; 99232; 99233; 99239; J0131; J2060; J2560

== ENCOUNTER 2022-09-10 20:26 | Inpatient (IN) | payer OTHER, MEDICAID, SELFPAY ==
[2022-09-10] VITALS (28 sets, daily range): BP systolic 98–122; BP diastolic 55–77; PULSE 96–114; RESP 12–25; TEMP 36.9–37.4; O2SAT 97–100
--- NOTE | 2022-09-10 20:15 | RT.EKG_ITS ---
APPROVED REPORT Exam: Resting ECG Reason for Exam: chest pain Patient Location: E HR:101 bpm ECG Measurements Heart Rate 101 AXIS CA 160 P 59 QRSd 107 QRS 46 QT 340 T 16 QTc 440 Conclusion Sinus tachycardia...rate> 99
--- NOTE | 2022-09-10 20:30 | DI.CT_ITS ---
Exam(s) CT HEAD WO EXAM: CT HEAD WO CLINICAL HISTORY: general weakness. TECHNIQUE: Imaging Protocol: Axial computed tomography images with coronal and sagittal reformatted images were created and reviewed COMPARISON: No exams were available for comparison FINDINGS: There are no skull fractures. There is no fluid in the visualized paranasal sinuses. There is no evidence of intracranial hemorrhage, mass effect, or shift of midline structures. There are no extra-axial fluid collections. The ventricles are not enlarged or shifted and there is no blo od within the ventricular system nor within the basal cisterns. There is vascular calcification noted in the right vertebral artery at the skull base as well as with in both internal carotid arteries within the cavernous sinuses and supraclinoid level. IMPRESSION: No acute intracranial findings on this noninfused CT scan of the brain. Vascular calcifications at the the skull base described above, implying atherosclerotic involvement o f these vessels. RADIATION DOSE DELIVERED: 676.57mGy.cm Total DLP DATA REPOSITORY: All CT scans at this facility are submitted to the National Radiology Data Registry (NRDR) Dose Index Registry (DIR) with the [employer] (ACR). RADIATION OPTIMIZATION: All CT scans at this facility use at least one of these dose optimization te chniques: automated exposure control; mA and/or kV adjustment per patient size (includes targeted exa ms where dose is matched to clinical indication); or iterative reconstruction.
--- NOTE | 2022-09-10 20:36 | W.ED.GENAD ---
Discharge Plan Disposition Patient Disposition: Admit to [facility] Condition: Stable Discharge Details Chief Complaint: ETOHWithdr Clinical Impression: Increased anion gap metabolic acidosis, Acute dehydration, General weakness Primary Care Provider: Mel Llamas ED Provider: Froilan Pratt Home Meds and New Rx's Prescriptions: No Action acetaminophen [Tylenol] 325 mg tablet 975 mg PO ONCE PRN (DME) lancets Misc See Rx Instructions .MEDSUPPLY Rx Instructions: As directed to check blood glucose four times daily. On insulin. Dispense covered brand. metoprolol succinate 25 mg tablet extended release 24 hr 25 mg PO HS Qty: 90 3RF Hold Instructions: Resume after finishing propanolol course. Lantus Solostar U-100 Insulin 100 unit/mL (3 mL) insulin pen 44 unit subcut HS MDD 46 units daily Qty: 45 3RF Rx Instructions: DMT1 duloxetine 60 mg capsule,delayed release(DR/EC) See Rx Instructions .ROUTE .COMPLEX Qty: 90 3RF Dose Instruction: TAKE 1 CAPSULE BY MOUTH EVERY MORNING Rx Instructions: TAKE 1 CAPSULE BY MOUTH EVERY MORNING Trulicity 0.75 mg/0.5 mL pen injector See Rx Instructions .ROUTE .COMPLEX Qty: 6 0RF Dose Instruction: INJECT 0.5ML UNDER THE SKIN ONCE WEEKLY Rx Instructions: INJECT 0.5ML UNDER THE SKIN ONCE WEEKLY naproxen 375 mg tablet,delayed release (DR/EC) 375 mg PO .with dinner Qty: 14 0RF Rx Instructions: Post-op pain (DME) OneTouch Verio test strips Strip See Rx Instructions .ROUTE .COMPLEX Qty: 400 0RF Dose Instruction: USE TO TEST BLOOD GLUCOSE FOUR TIMES DAILY Rx Instructions: USE TO TEST BLOOD GLUCOSE FOUR TIMES DAILY insulin lispro [Humalog KwikPen Insulin] 100 unit/mL insulin pen 12 - 15 unit subcut TID PRN Patient Comments: 03/06/20 PER PT, SLIDING SCALE - MINIMUM OF 12U Rx Instructions: tid with meals per sliding to keep AIC below 7.0 chlorthalidone 15 mg tablet 7.5 mg PO DAILY Patient Comments: 05/29/21 visit lisinopril 2.5 mg tablet 2.5 mg PO DAILY Patient Comments: 05/29/21 office visit baking soda PO Rx Instructions: 1/2 teaspoon per day due to metabolic acidosis atorvastatin 20 mg tablet See Rx Instructions .ROUTE .COMPLEX Qty: 90 3RF Dose Instruction: TAKE 1 TABLET BY MOUTH EVERY NIGHT AT BEDTIME FOR CHOLESTEROL OR DIABETES Rx Instructions: TAKE 1 TABLET BY MOUTH EVERY NIGHT AT BEDTIME FOR CHOLESTEROL OR DIABETES (DME) pen needle, diabetic [BD Ultra-Fine Doreen Pen Needle] 32 gauge x 5/32 needle See Rx Instructions .ROUTE .MEDSUPPLY Qty: 360 3RF Rx Instructions: BD Ultrafine 32G X 6mm, 4x/day for goal A1C<7 for E10.9 gabapentin 300 mg capsule See Rx Instructions .ROUTE .COMPLEX Qty: 90 0RF Dose Instruction: TAKE 1 CAPSULE BY MOUTH AT BEDTIME NEEDED FOR NERVE PAIN INLEGS Rx Instructions: TAKE 1 CAPSULE BY MOUTH AT BEDTIME NEEDED FOR NERVE PAIN INLEGS (DME) Dexcom G7 Steel Finisher Misc See Rx Instructions .ROUTE Qty: 1 0RF Rx Instructions: As directed (DME) Dexcom G7 Sensor Device See Rx Instructions .ROUTE Qty: 1 0RF Rx Instructions: As directed multivitamin [Multiple Vitamins] Tablet 1 tab PO QAM Qty: 0 0RF propranolol 20 mg Tablet 20 mg PO BID Qty: 10 0RF thiamine mononitrate (vit B1) [Vitamin B-1 (mononitrate)] 100 mg Tablet 100 mg PO QAM Qty: 0 0RF vancomycin 125 mg capsule 125 mg PO QID Qty: 40 0RF Medical Decision Making 62 yo male with hx of alcohol abuse who was discharged earlier today after being admitted for alcohol abuse and also had c diff comes in with cc of general weakness after drinking a pint of hard liquor after being discharged. HE arrives caox4 speaking clearly though slowly. HE denies headache, neck pain, chest pain, abdomen pain. HE denies using other substances. He is moving all extremities equally but is globally weak and can barely life his extremities off the bed. Suspect alcohol intoxicated with also some deconditioning after being hospitalized, will obtain cbc, cmp, lipase, etoh level. Doubt cva based on his exam and no unilateral findings, will obtain ct head to exclude possible subdural in setting of being a chronic alcohol user. imaging unremarkable, labs with continued leukocystosis likely secondary to c diff, he also has anion gap acidosis which is most likely due to alcohol ketosis though his gap is over 200 so could have mild dka. Mag is 1.5, etoh only 85. He feels generally weak still and has trouble getting out of bed, will discuss with hospitalist about admission for iv hydration and observation Differential Diagnosis Differential Diagnosis: intoxicated, electrolyte abnormality Medical Records Medical records reviewed: Yes I reviewed the patient's medical records. Imaging Data Radiologic Study: Attestation: I personally reviewed and interpreted this imaging study as follows: Imaging: CT Scan Radiologist's impression: no acute findings Radiologic Study #2: Attestation: I personally reviewed and interpreted this imaging study as follows: Imaging: X-Ray Radiologist's impression: no acute findings Lab Data Lab results reviewed: Yes I reviewed the patient's lab results. ECG Data Attestation: I personally reviewed and interpreted this ECG (s) as follows: Prior ECG tracings: available for review Interpretation: sinus rate of 101, pr 160, no acute ischemic findings HPI General Mode of arrival: EMS. Date/Time Provider Initiated Documentation: 09/10/22 20:34. Limitations to Documentation: no limitations. Information obtained by: patient. History of Present Illness 62 year old M presents to the emergency department with the chief complaint of weakness, described as moderate, and it has been constant. No relieving factors improve symptom(s), No exacerbating factors reported . Patient did receive the following treatments prior to arrival, none Related Data Home Medications Medication Instructions Recorded Confirmed insulin lispro 100 unit/mL 12 - 15 unit subcut TID PRN 05/19/20 09/06/22 subcutaneous pen (Humalog KwikPen (U-100) Insulin) lancets 08/03/20 09/06/22 baking soda PO 05/29/21 08/21/22 chlorthalidone 15 mg tablet 7.5 mg PO DAILY 05/29/21 09/06/22 lisinopril 2.5 mg tablet 2.5 mg PO DAILY 05/29/21 09/06/22 acetaminophen 325 mg tablet 975 mg PO ONCE PRN 06/06/21 09/06/22 (Tylenol) atorvastatin 20 mg tablet See Rx Instructions .Route 10/19/21 09/06/22 .COMPLEX #90 tabs pen needle, diabetic 32 gauge x #360 ea 02/01/22 08/30/22 5/32 (BD Ultra-Fine Doreen Pen Needle) duloxetine 60 mg capsule,delayed See Rx Instructions .Route 02/20/22 09/06/22 release .COMPLEX #90 caps insulin glargine 100 unit/mL (3 44 unit (0.44 mL) subcut HS #45 mL 02/20/22 09/06/22 mL) subcutaneous pen (Lantus Solostar U-100 Insulin) metoprolol succinate 25 mg 25 mg PO HS #90 tabs 02/20/22 09/06/22 tablet,extended release 24 hr gabapentin 300 mg capsule See Rx Instructions .Route 05/30/22 09/06/22 .COMPLEX #90 caps dulaglutide 0.75 mg/0.5 mL See Rx Instructions .Route 06/06/22 09/06/22 subcutaneous pen injector .COMPLEX #6 mL (Trulicity) blood sugar diagnostic ([employer] #400 strips 08/21/22 09/06/22 Verio test strips) naproxen 375 mg tablet,delayed 375 mg PO .with dinner #14 tabs 08/21/22 09/06/22 release blood-glucose meter,continuous #1 ea 08/26/22 09/06/22 (Dexcom G7 Steel Finisher) blood-glucose sensor (Dexcom G7 #1 ea 08/26/22 09/06/22 Sensor device) multivitamin (Multiple Vitamins 1 tab PO QAM #0 tabs 09/10/22 tablet) propranolol 20 mg tablet 20 mg PO BID #10 tabs 09/10/22 thiamine mononitrate (vit B1) 100 100 mg PO QAM #0 tabs 09/10/22 mg tablet (Vitamin B-1 (mononitrate)) vancomycin 125 mg capsule 125 mg PO QID #40 caps 09/10/22 Previous Rx's Medication Instructions Recorded atorvastatin 20 mg tablet See Rx Instructions .Route 10/19/21 .COMPLEX #90 tabs pen needle, diabetic 32 gauge x #360 ea 02/01/22 (BD Ultra-Fine Doreen Pen Needle) duloxetine 60 mg capsule,delayed See Rx Instructions .Route 02/20/22 release .COMPLEX #90 caps insulin glargine 100 unit/mL (3 44 unit (0.44 mL) subcut HS #45 mL 02/20/22 mL) subcutaneous pen (Lantus Solostar U-100 Insulin) metoprolol succinate 25 mg 25 mg PO HS #90 tabs 02/20/22 tablet,extended release 24 hr gabapentin 300 mg capsule See Rx Instructions .Route 05/30/22 .COMPLEX #90 caps dulaglutide 0.75 mg/0.5 mL See Rx Instructions .Route 06/06/22 subcutaneous pen injector .COMPLEX #6 mL (Trulicity) blood sugar diagnostic (OneTouch #400 strips 08/21/22 Verio test strips) naproxen 375 mg tablet,delayed 375 mg PO .with dinner #14 tabs 08/21/22 release blood-glucose meter,continuous #1 ea 08/26/22 (Dexcom G7 Steel Finisher) blood-glucose sensor (Dexcom G7 #1 ea 08/26/22 Sensor device) multivitamin (Multiple Vitamins 1 tab PO QAM #0 tabs 09/10/22 tablet) propranolol 20 mg tablet 20 mg PO BID #10 tabs 09/10/22 thiamine mononitrate (vit B1) 100 100 mg PO QAM #0 tabs 09/10/22 mg tablet (Vitamin B-1 (mononitrate)) vancomycin 125 mg capsule 125 mg PO QID #40 caps 09/10/22 Allergies Allergy/AdvReac Type Severity Reaction Status Date / Time lactose intolerant AdvReac Mild Diarrhea Uncoded 08/21/22 08:46 General Stated Complaint: ETOHWithdr GALILEO: 3 Review of Systems All systems reviewed & are unremarkable except as noted in HPI and below Constitutional Constitutional: Denies chills and Denies fever(s) Cardiovascular Cardiovascular: Denies chest pain and Denies dyspnea Respiratory Respiratory: Denies cough and Denies dyspnea Gastrointestinal Gastrointestinal: Denies abdominal pain, Denies nausea and Denies vomiting Musculoskeletal Musculoskeletal: Denies joint swelling Psychiatric Psychiatric: Denies depression PFSH All Active Problems (Updated 09/10/22 @ 22:19 by Froilan Pratt MD) Increased anion gap metabolic acidosis (Acute) Acute dehydration (Acute) General weakness (Acute) Gallstones (Acute) Kidney lesion, bill moore's slough, left (Acute) Microcytic anemia (Acute) Colitis due to Clostridium difficile (Acute) Chest pain (Acute) Hypomagnesemia (Acute) Discharge planning issues (Acute) DVT prophylaxis (Acute) Elevated white blood cell count (Acute) Alcohol use disorder (Acute) Finger laceration (Acute) Alcohol withdrawal (Acute) Acute dehydration (Acute) Post-operative pain (Acute) Dehiscence of operative wound (Acute) Subsequent encounter Skin ulcer of scrotum (Acute) De Quervain's tenosynovitis, left (Acute) 40 mg Depo-Medrol injection: 04/04/2022 Metabolic acidosis (Acute) Essential hypertension (Acute) CKD (chronic kidney disease) stage 4, GFR 15-29 ml/min (Acute) Alcohol use disorder, moderate, in early remission (Acute ~12/2021) Antabuse RX Lamellar macular hole of both eyes (Acute 10/25/21) Type 1 diabetes, controlled, with neuropathy (Chronic ~05/2017) Adult onset, diagnosed 05/2017 [facility] [address] Dr. Douglas--recommend GLP1 Personal goal A1C <7% Stage 3b chronic kidney disease (CKD) (Chronic) [facility] Nephro initial consult 07/2020; DMT1 & Solitary partial L kidney s/p nephrectomy due to renal cell cancer Secondary hyperparathyroidism (Acute ~05/2021) 05/29/21 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 Nephrology Lesion of bone of left forearm proximal radius lesion Osteoarthritis of elbows, bilateral Polyneuropathy associated with underlying disease DM Solitary left kidney [facility] Nephro (initial 07/2020); s/p nephrectomy on R 2004 renal cell cancer; partial nephrectomy on L 2007 Type 1 diabetes mellitus without complications Surgical History H/O arthroscopy of knee Remotely--both knees at some point; he cannot recall what, but thinks meniscal H/O partial nephrectomy (~04/2007) left H/O skin graft [facility] 07/12/22 Scrotal Abscess 07/15/22 Skin Graft with Bolster removal History of nephrectomy, right (~03/2004) Renal cell cancer Family History Mother , 54yo breast cancer Alcohol abuse Breast cancer Depression Substance abuse Father , ~70yo prostate cancer Alcohol abuse Prostate cancer Substance abuse Sister , throat caner (nicotine use) Alcohol abuse Cancer Cervical Substance abuse Social History Smoking/Tobacco Use Status: Never Smoking risk assessment performed?: Yes Alcohol Intake: current Alcohol Intake frequency: a few times a month Previous attempts at quittin Counseling given: Yes ([employer] [facility]) Drug use: Never Substance use type: opiates Details: no IV drug use Adopted: No Caregiver/Support person: No Foster care: No Household members: other Details: [facility] Facility Housing: house Number of Children: 4 number of grandchildren: 4 Communication Needs: None Education Level: college Do you need help understanding health information?: Rarely 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) Pets and animals: Yes Pets and animals: cat(s) Sexually active: No Do you think of yourself as: straight/heterosexual Current gender identity: male What is your relationship status?: How often do you talk on the phone with friends or family?: three or more times per week How often do you get together with friends or relatives?: three or more times per week How often do you attend anglican or mandaeism services?: 4 or more times per year Do you belong to any clubs or organized social groups?: no Panel score (0-1 are the most socially isolated patients): 2 What type of physical activity do you participate in: walking, bicycling and other Details: EXERCISE ON STATIONARY BIKE Duration: < 15 minutes/day Frequency: 3-4 times per week Erin/Lutheran: Christianity Agree to transfusion: No Seatbelt use: always Helmet use: Yes Drive intox or ride w/intox crew truck driver: No Water heater temp set <120 deg: Yes Working smoke detector in home: Yes Fire extinguisher in home: Yes Do you feel safe at home: Yes Do you feel safe in your relationship?: Yes Exam Const General: no acute distress Orientation: alert HENMT Head: normal to inspection Ears: external ears normal General nose exam: external nose normal Mouth: moist mucous membranes Eyes General: appearance normal, both eyes and all related structures Neck Neck: normal visual inspection Resp Effort & Inspection: normal respiratory effort and able to speak in complete sentences Auscultation: clear to auscultation bilaterally Cardio Jugular venous pressure: no JVD Rate: regular rate Heart Sounds: no murmurs GI Palpation: soft and nontender Skin General skin exam: no rashes or lesions noted Neuro General: patient alert and patient oriented x3 Extrem General: normal to inspection Psych Mental Status: mental status grossly normal Course Vital Signs Vital signs: Vital Signs Temperature 36.9 C 09/10/22 20:29 Pulse 101 H 09/10/22 20:29 Respiratory Rate 25 H 09/10/22 20:29 Blood Pressure 98/55 L 09/10/22 20:29 Pulse Oximetry 98 09/10/22 20:29 Temperature 36.9 C 09/10/22 20:29 Pulse 101 H 09/10/22 20:29 Respiratory Rate 25 H 09/10/22 20:29 Blood Pressure 98/55 L 09/10/22 20:29 Blood Pressure Position Supine 09/10/22 20:29 Pulse Oximetry 98 09/10/22 20:29 Oxygen Delivery Method Room Air 09/10/22 20:29 Oxygen Flow Rate 0 09/10/22 20:29
--- NOTE | 2022-09-10 20:38 | DI.RAD_ITS ---
Exam(s) XR CHEST 1V IN DI DEPT EXAM: XR CHEST 1V IN DI DEPT CLINICAL HISTORY: weakness. TECHNIQUE: 2D digital imaging was performed. COMPARISON: No exams were available for comparison FINDINGS: Single AP portable view. Heart size is upper normal. The mediastinum is not widened. Lungs are clear. No infiltrates nor obvious pleural effusions. Healed fracture left clavicle again noted. IMPRESSION: No acute pulmonary findings on this single AP portable view of the chest. DATA REPOSITORY: RADIATION DOSE DELIVERED:
[2022-09-10 20:51] LABS: BE (Venous) -14 mmol/L (-2-3); HCO3 (Venous) 14 mmol/L (23-28); O2 Sat (Venous) 63 %; TCO2 (Venous) 14 mmol/L (24-29); pCO2 (Venous) 33 mmHg (41-51); pH (Venous) 7.24 (7.31-7.41); pO2 (Venous) 35 mmHg
[2022-09-10 21:01] LABS: MCH 26.2 pg (27.0-33.0); MCHC 31.3 % (32.0-36.0); MCV 84 fL (80-95); MPV 10.5 fL (8.0-11.0); RBC 3.81 10^6/uL (4.36-5.78); RDW 17.9 % (11.8-14.1); RDW-SD 54.8 fL; WBC 20.46 10^3/uL (4.4-10.8)
--- NOTE | 2022-09-10 21:15 | DI.VRAD_ITS ---
PROCEDURE INFORMATION: Exam: CT Head Without Contrast Exam date and time: 09/10/2022 9:04 PM Age: 62 years old Clinical indication: Pain; Headache not specified; Patient HX: Headache, general weakness TECHNIQUE: Imaging protocol: Computed tomography of the head without contrast. Radiation optimization: All CT scans at this facility use at least one of these dose optimization techniques: automated exposure control; mA and/or kV adjustment per patient size (includes targeted exams where dose is matched to clinical indication); or iterative reconstruction. COMPARISON: No relevant prior studies available. FINDINGS: Brain: Mild volume loss No hemorrhage. Unremarkable white matter. No mass effect. Cerebral ventricles: No ventriculomegaly. Paranasal sinuses: Visualized sinuses are unremarkable. No fluid levels. Mastoid air cells: Visualized mastoid air cells are well aerated. Bones/joints: Unremarkable. No acute fracture. Soft tissues: Unremarkable. IMPRESSION: No acute intracranial abnormality. Dictated and Authenticated by: Mando Rodriguez MD. Ordering:ZUHAIR Mcgovern MD
--- NOTE | 2022-09-10 21:17 | DI.VRAD_ITS ---
PROCEDURE INFORMATION: Exam: XR Chest Exam date and time: 09/10/2022 9:12 PM Age: 62 years old Clinical indication: Other: Weakness TECHNIQUE: Imaging protocol: Radiologic exam of the chest. Views: 1 view. COMPARISON: CR XR PORTABLE CHEST AP 09/06/2022 7:08 PM FINDINGS: Lungs: Unremarkable. No consolidation. Pleural spaces: Unremarkable. No pleural effusion. No pneumothorax. Heart/Mediastinum: Grossly stable. Bones/joints: Grossly stable. IMPRESSION: No acute findings. Dictated and Authenticated by: Mando Rodriguez MD. Ordering:ZUHAIR Mcgovern MD
[2022-09-10 21:20] LABS: PTT Activated 23.7 sec (21.5-31.9); Prothrombin Time 10.2 sec (9.3-11.0)
[2022-09-10 21:24] LABS: Absolute Eosinophil Count 0.41 10^3/uL (0.0-0.7); Absolute Lymphocyte Count 2.46 10^3/uL (1.2-3.4); Absolute Monocyte Count 1.23 10^3/uL (0.1-0.8); Absolute Neutrophil Count 15.96 10^3/uL (1.2-6.7); Anisocytosis 1+; Bands % 1; Diff Comment Manual Differential; Myelocytes % 1; Platelet Count 369 10^3/uL (130-400)
[2022-09-10 21:30] LABS: Salicylate < 2.8 mg/dL (<2.8)
[2022-09-10 22:02] LABS: ALT 10 U/L (16-63); AST 16 U/L (15-37); Albumin 2.9 g/dL (3.4-5.0); Alkaline Phosphatase 102 U/L (46-116); Anion Gap 18.2 mmol/L (3-11); BUN 44 mg/dL (7-18); Bilirubin, Total 0.4 mg/dL (0.2-1.0); CO2 14.8 mmol/L (21.0-32.0); CREATININE 3.5 mg/dL (0.70-1.30); Calcium 8.7 mg/dL (8.5-10.1); Chloride 100 mmol/L (98-107); ETHANOL BLOOD 84.9 mg/dL (<10); Estimated GFR 18.81 (mL/min/1.73m2); Glucose 225 mg/dL (74-106); Lipase 56 U/L (16-77); Magnesium 1.5 mg/dL (1.8-2.4); Potassium 4.1 mmol/L (3.5-5.1); Sodium 133 mmol/L (136-145); TSH (W/Ref FT4) 3.41 uIU/mL (0.36-3.74); Total Protein 7.2 g/dL (6.4-8.2); Troponin I < 50 ng/L (<or=60)
[2022-09-10] MEDS: Normal Saline 1,000 ML 1000 ML IV (22:15)
[2022-09-10] MEDS: MAGNESIUM SULFATE 2 GM/50 ML BAG IVPB (22:15)
[2022-09-11] VITALS (8 sets, daily range): BP systolic 117–161; BP diastolic 72–85; PULSE 98–116; RESP 18–24; TEMP 37.3–38.1; O2SAT 96–100
--- NOTE | 2022-09-11 | DI.US_ITS ---
Exam(s) US UPPER EXTREMITY VENOUS LT EXAM: US UPPER EXTREMITY VENOUS LT CLINICAL HISTORY: swelling. Questionable venous thrombosis TECHNIQUE: GRAYSCALE, COLOR, DOPPLER IMAGING OF THE VENOUS SYSTEM OF THE UPPER EXTREMITY-BILATERAL COMPARISON: None FINDINGS: There is interstitial edema in the soft tissues of the upper extremity. There is thrombosis within the cephalic vein in the mid to distal upper extremity, the length of this intraluminal thrombus being approximately 13 cm. Intraluminal thrombus was also seen in the median cubital vein around the elbow region. Lengths of t thrombus measures a few cm. Basilic vein: Patent. Normal color-flow and normal compression and augmentation properties. Brachial vein(s):Patent. Normal color flow. Normal compression and augmentation properties. Axillary vein: Patent. Normal color flow. Normal compression and augmentation properties. Visualized subclavian vein: Patent. No obvious intraluminal thrombus. IMPRESSION: 1. Positive study for evidence of intraluminal thrombus within the cephalic vein. Upper aspect of christelle stallings 13 cm thrombus is at the mid upper arm. 2. [place] intraluminal thrombus is noted in the medial cubital vein at the elbow level. 3. Other veins of the upper extremity including the base iliac and brachial veins are patent as is t he axillary and subclavian veins. DATA REPOSITORY:
--- NOTE | 2022-09-11 01:08 | HPE_ITS ---
Date of service: 09/10/22 Time of Service: 23:35 Assessment and Plan Assessment and plan (1) General weakness: Start date: 09/10/22 Status: Acute Assessment and plan: This s a 62-year-old alcoholic gentleman who drinks about 1/2 gallon of vodka daily in poor condition with poorly controlled medical disease processes. He is generally weak from multiple etiologies and deconditioned with physical therapy recently stated that he should be using a walker. The patient feels that he should be rehabilitated. His electrolyte abnormalities and chronic alcohol use certainly are increasing his weakness. He will be admitted for IV hydration hopefully to reverse his metabolic acidosis with close monitoring for alcohol withdrawal and more aggressive treatment of his C. difficile colitis adding Flagyl IV to oral vancomycin. He does have leukocytosis which will be trended watching for other sources of infection. Long-term he may do well with rehabilitation but needs to stop drinking alcohol and take care of himself at home, living alone. He is a full code. (2) Acute dehydration: Status: Acute Assessment and plan: Patient will be hydrated with IV normal saline to help also with hyponatremia. Increased oral hydration chronically and discontinue alcohol use chronically. Electrolyte depletion will be repleted as needed. He does have exacerbation of his chronic CKD. (3) CKD (chronic kidney disease) stage 4, GFR 15-29 ml/min: Start date: 09/10/22 Status: Chronic Assessment and plan: Slightly exacerbated with patient to be trended with lab and avoid nephrotoxic medications. Lisinopril has been held. He has status post right nephrectomy for renal cell carcinoma. (4) Hyponatremia: Start date: 09/10/22 Status: Acute Assessment and plan: Most likely associated with chronic alcohol use. IV normal saline aggressively watching for fluid overload. Long-term alcohol cessation would be helpful. (5) Hypomagnesemia: Start date: 09/10/22 Status: Acute Assessment and plan: Recurrent depletion with alcohol use. IV magnesium sulfate 2 g was given and follow-up labs, repleting as needed. Long-term alcohol cessation would be helpful. (6) Increased anion gap metabolic acidosis: Start date: 09/10/22 Status: Acute Assessment and plan: IV hydration and hypoglycemic control watching closely for DKA if patient is not improving. For now glucometer measurements with short acting insulin coverage along with diet and hydration will be initiated. Trend labs. (7) Alcohol use disorder: Status: Chronic Assessment and plan: Patient needs stop drinking long-term and prognosis poor for change. He does discuss possible rehabilitation and cessation at hospitalizations but never followed through. Continue supportive care with alcohol withdrawal counseling and referral as patient allows. Watch for alcohol withdrawal while hospitalized. (8) Type 1 diabetes mellitus without complications: Assessment and plan: Hold outpatient medical therapy with glucometer measurements and moderate sliding scale for acting insulin for coverage. Adjust as needed. Recent hemoglobin A1c was below 8. (9) Leukocytosis (leucocytosis): Status: Acute Assessment and plan: No obvious source for infection other than C. difficile colitis at this time. Procalcitonin is slightly positive and we need to watch closely for sepsis syndrome. Patient is stable presently and Flagyl will be added to oral vancomycin for C. difficile colitis. Follow-up clinically with cultures and advancing antibiotic therapy if indicated. Patient is at risk for infection with compromised immune system. We will avoid broad-spectrum IV antibiotic therapy because of C. difficile colitis. (10) Colitis due to Clostridium difficile: Start date: 09/09/22 Status: Acute Assessment and plan: C. difficile positive with recent hospitalization and patient on vancomycin p.o. which will be continued with IV Flagyl. (11) Anemia: Status: Chronic Assessment and plan: Most likely secondary to chronic disease and poor nutrition. Anemia profile will be ordered and if iron stores are adequate and hemoglobin dropped below 10 g/dL, consider Epogen long-term. Better nutrition and cessation of alcohol would be the obvious first step. History of Present Illness History of Present Illness Chief Complaint: Weakness and inability to stand Narrative: This is 62-year-old male patient who has chronic alcohol use drinking vodka daily and was extremely weak recently with hospitalization for chest pain and shortness of breath and was found to be dehydrated and also had C. difficile colitis which was initiated on treatment prior to discharge. He was seen by physical therapy who thought he could use a walker but the patient went home rather than having rehabilitation. He returned to the ED this visit complaining of feeling generally weak and when returning home did initiate vodka once again drinking about a pint of hard liquor. He usually drinks half a gallon of vodka daily. He states that he has lost weight recently and lives alone not eating or drinking regular food very well. His activity level is minimal. He denies any fever or chills though he does have leukocytosis with his recent hospitalization which has worsened with this admission. He also was acidotic with an elevated anion gap and metabolic acidosis. He was not in overt DKA. He chronically does not do well with his diabetes though his last hemoglobin A1c was below 8. He was having trouble getting out of bed and taking care of himself at home being alone therefore reported back to the ED. He was responded to IV hydration but not able to stand and was readmitted for acute electrolyte imbalance as well as continued dehydration with poor intake at home. He also had worsening leukocytosis but no broad-spectrum antibiotics were started with no obvious source other than colitis. Flagyl intravenously in addition to oral vancomycin was continued for C. difficile colitis. His diarrhea had improved. He denies any blood in his stool. He does not have any nausea or vomiting or other fluid loss. The patient is a full code. Review of Systems Narrative: 13 point review of systems otherwise unrevealing or overall stable with patient having increased somatic complaints chronically. [facility] All Active Problems (Updated 09/11/22 @ 07:45 by Sean Patterson) Anemia (Chronic) Hypomagnesemia (Acute) Leukocytosis (leucocytosis) (Acute) Hyponatremia (Acute) Increased anion gap metabolic acidosis (Acute) Acute dehydration (Acute) General weakness (Acute) Gallstones (Acute) Kidney lesion, [place], left (Acute) Microcytic anemia (Acute) Colitis due to Clostridium difficile (Acute) Alcohol use disorder (Chronic) Finger laceration (Acute) Post-operative pain (Acute) Dehiscence of operative wound (Acute) Subsequent encounter Skin ulcer of scrotum (Acute) De Quervain's tenosynovitis, left (Acute) 40 mg Depo-Medrol injection: 04/04/2022 Metabolic acidosis (Acute) Essential hypertension (Acute) CKD (chronic kidney disease) stage 4, GFR 15-29 ml/min (Chronic) Lamellar macular hole of both eyes (Acute 10/25/21) Type 1 diabetes, controlled, with neuropathy (Chronic ~05/2017) Adult onset, diagnosed 05/[address] [facility] [address]. 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 History of alcohol use disorder since 1989 with intermittent sobriety History of elevated PSA Per [facility]--01/14/2019 6.41, 04/28/2018 6.32; +Fam hx prostate cancer in F History of opioid abuse s/p surgeries; visiting brother 08/2021 ([facility] admission) History of renal cell cancer s/p nephrectomy Hyperkalemia (~05/2021) 05/29/21 [facility] Nephrology Lesion of bone of left forearm proximal radius lesion Osteoarthritis of elbows, bilateral Polyneuropathy associated with underlying disease DM Solitary left kidney [facility] Nephro (initial 07/2020); s/p nephrectomy on R 2004 renal cell cancer; partial nephrectomy on L 2007 Tubular adenoma of colon 08/2018 colonoscopy [facility]; recall 5y Type 1 diabetes mellitus without complications Surgical History H/O arthroscopy of knee Remotely--both knees at some point; he cannot recall what, but thinks meniscal H/O partial nephrectomy (~04/2007) left H/O skin graft [facility] 07/12/22 Scrotal Abscess 07/15/22 Skin Graft with Bolster removal History of nephrectomy, right (~03/2004) Renal cell cancer Family History Mother , 54yo breast cancer Alcohol abuse Breast cancer Depression Substance abuse Father , ~70yo prostate cancer Alcohol abuse Prostate cancer Substance abuse Sister , throat caner (nicotine use) Alcohol abuse Cancer Cervical Substance abuse Social History Smoking/Tobacco Use Status: Never Smoking risk assessment performed?: Yes Alcohol Intake: current Alcohol Intake frequency: a few times a month Previous attempts at quittin Counseling given: Yes ([facility]) Drug use: Never Substance use type: opiates Details: no IV drug use Adopted: No Caregiver/Support person: No Foster care: No Household members: other Details: [facility] Living Facility Housing: apartment Number of Children: 4 number of grandchildren: 4 Communication Needs: None Education Level: college Do you need help understanding health information?: Rarely 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) Pets and animals: Yes Pets and animals: cat(s) Sexually active: No Do you think of yourself as: straight/heterosexual Current gender identity: male What is your relationship status?: How often do you talk on the phone with friends or family?: three or more times per week How often do you get together with friends or relatives?: three or more times per week How often do you attend gnosticist or episcopalian services?: 4 or more times per year Do you belong to any clubs or organized social groups?: no Panel score (0-1 are the most socially isolated patients): 2 What type of physical activity do you participate in: walking, bicycling and other Details: EXERCISE ON STATIONARY BIKE Duration: < 15 minutes/day Frequency: 3-4 times per week Erin/Yarsani: Moravian Agree to transfusion: No Seatbelt use: always Helmet use: Yes Drive intox or ride w/intox lumber driver: No Water heater temp set <120 deg: Yes Working smoke detector in home: Yes Fire extinguisher in home: Yes Do you feel safe at home: Yes Do you feel safe in your relationship?: Yes Meds Allergies and Home Medications Allergies Allergy/AdvReac Type Severity Reaction Status Date / Time lactose intolerant AdvReac Mild Diarrhea Uncoded 08/21/22 08:46 Home Medications Medication Instructions Recorded Confirmed Type insulin lispro 100 unit/mL 12 - 15 unit subcut TID PRN 05/19/20 09/10/22 History subcutaneous pen (Humalog KwikPen (U-100) Insulin) lancets 08/03/20 09/10/22 History baking soda PO 05/29/21 08/21/22 History chlorthalidone 15 mg tablet 7.5 mg PO DAILY 05/29/21 09/10/22 History lisinopril 2.5 mg tablet 2.5 mg PO DAILY 05/29/21 09/10/22 History acetaminophen 325 mg tablet 975 mg PO ONCE PRN 06/06/21 09/10/22 History (Tylenol) atorvastatin 20 mg tablet See Rx Instructions .Route 10/19/21 09/10/22 Rx .COMPLEX #90 tabs pen needle, diabetic 32 gauge x #360 ea 02/01/22 09/10/22 Rx 5/32 (BD Ultra-Fine Doreen Pen Needle) duloxetine 60 mg capsule,delayed See Rx Instructions .Route 02/20/22 09/10/22 Rx release .COMPLEX #90 caps insulin glargine 100 unit/mL (3 44 unit (0.44 mL) subcut HS #45 mL 02/20/22 09/10/22 Rx mL) subcutaneous pen (Lantus Solostar U-100 Insulin) metoprolol succinate 25 mg 25 mg PO HS #90 tabs 02/20/22 09/10/22 Rx tablet,extended release 24 hr gabapentin 300 mg capsule See Rx Instructions .Route 05/30/22 09/10/22 Rx .COMPLEX #90 caps dulaglutide 0.75 mg/0.5 mL See Rx Instructions .Route 06/06/22 09/10/22 Rx subcutaneous pen injector .COMPLEX #6 mL (Trulicity) blood sugar diagnostic (OneTouch #400 strips 08/21/22 09/10/22 Rx Verio test strips) naproxen 375 mg tablet,delayed 375 mg PO .with dinner #14 tabs 08/21/22 09/10/22 Rx release blood-glucose meter,continuous #1 ea 08/26/22 09/10/22 Rx (Dexcom G7 Cow Puncher) blood-glucose sensor (Dexcom G7 #1 ea 08/26/22 09/10/22 Rx Sensor device) multivitamin (Multiple Vitamins 1 tab PO QAM #0 tabs 09/10/22 09/10/22 Rx tablet) propranolol 20 mg tablet 20 mg PO BID #10 tabs 09/10/22 09/10/22 Rx thiamine mononitrate (vit B1) 100 100 mg PO QAM #0 tabs 09/10/22 09/10/22 Rx mg tablet (Vitamin B-1 (mononitrate)) vancomycin 125 mg capsule 125 mg PO QID #40 caps 09/10/22 09/10/22 Rx Exam Narrative Exam Narrative: General: Patient appears older than stated age, moderately obese and deconditioned with flattened affect but in no acute distress. He is lying in bed comfortably. He is alert and oriented x3. HEENT: Normocephalic, eyes with pupils equal and reactive to light symmetrically, extraocular movement tact and sclera anicteric. Oropharynx with dry mucosa and poor dentition with multiple caries and missing teeth with discoloration. Neck: Supple without JVD. Back: Stooped posture without CVA tenderness. Lungs: Fair aeration clear to auscultation percussion. Heart: Regular rate and rhythm with distant heart sounds. No appreciable murmur or gallop. Abdomen: Obese contour, soft and nontender to palpation with no palpable hepatosplenomegaly. Bowel sounds positive in all quadrants. No focalizing guarding or rebound. Genitalia/rectal: Exam deferred. Extremities: Without clubbing or cyanosis. Moderate nonpitting edema lower extremities with no skin breakdown. Fair capillary refill. Skin: Pale, warm and dry. Neuro: Cranial nerves II through XII gross intact, no focal motor deficits and no tremor. Motor strength overall is intact with patient generally feeling weak when attempting to stand prior to admission. Psych: Flattened affect with depressed mood. Patient has poor insight. No abnormal thought processes. Remote and recent memory appear to be grossly intact. Results Imaging Imaging Studies: Exam: CT Head Without Contrast Exam date and time: 09/10/2022 9:04 PM Age: 62 years old Clinical indication: Pain; Headache not specified; Patient HX: Headache, general weakness TECHNIQUE: Imaging protocol: Computed tomography of the head without contrast. Radiation optimization: All CT scans at this facility use at least one of these dose optimization techniques: automated exposure control; mA and/or kV adjustment per patient size (includes targeted exams where dose is matched to clinical indication); or iterative reconstruction. COMPARISON: No relevant prior studies available. FINDINGS: Brain:? Mild volume loss No hemorrhage. Unremarkable white matter. No mass effect. Cerebral ventricles: No ventriculomegaly. Paranasal sinuses: Visualized sinuses are unremarkable. No fluid levels. Mastoid air cells: Visualized mastoid air cells are well aerated. Bones/joints: Unremarkable. No acute fracture. Soft tissues: Unremarkable. IMPRESSION: No acute intracranial abnormality. Exam: XR Chest Exam date and time: 09/10/2022 9:12 PM Age: 62 years old Clinical indication: Other: Weakness TECHNIQUE: Imaging protocol: Radiologic exam of the chest. Views: 1 view. COMPARISON: CR XR PORTABLE CHEST AP 09/06/2022 7:08 PM FINDINGS: Lungs: Unremarkable. No consolidation. Pleural spaces: Unremarkable. No pleural effusion. No pneumothorax. Heart/Mediastinum:? Grossly stable. Bones/joints:? Grossly stable. IMPRESSION: No acute findings. Labs 09/10/22 20:40 09/10/22 20:40 Labs: Laboratory Results - last 24 hr 09/10/22 09/10/22 09/10/22 20:40 20:40 20:40 WBC 20.46 H RBC 3.81 L Hgb 10.0 L Hct 32.0 L MCV 84 MCH 26.2 L MCHC 31.3 L RDW 17.9 H Plt Count 369 MPV 10.5 Immature Gran % 0.0 Neutrophils % 77.0 Band Neutrophils % 1 Lymphocytes % 12.0 Monocytes % 6.0 Eosinophils % 2.0 Basophils % 1.0 Myelocytes % 1 Nucleated RBC % 0.0 Absolute Neutrophils 15.96 H Absolute Lymphocytes 2.46 Absolute Monocytes 1.23 H Absolute Eosinophils 0.41 Absolute Basophils 0.20 RBC Morphology See Below Anisocytosis 1+ PT INR APTT VBG pH VBG pCO2 VBG pO2 VBG HCO3 VBG Total CO2 VBG O2 Saturation VBG Base Excess Sodium 133 L Potassium 4.1 Chloride 100 Carbon Dioxide 14.8 L Anion Gap 18.2 H BUN 44 H Creatinine 3.5 H D Est GFR (CKD-EPI 2020) 18.81 Glucose 225 H Calcium 8.7 Magnesium 1.5 L Total Bilirubin 0.4 AST 16 ALT 10 L Alkaline Phosphatase 102 Troponin I < 50 Total Protein 7.2 Albumin 2.9 L Lipase 56 TSH 3.41 Salicylates < 2.8 Ethyl Alcohol 84.9 H 09/10/22 09/10/22 20:40 20:40 WBC RBC Hgb Hct MCV MCH MCHC RDW Plt Count MPV Immature Gran % Neutrophils % Band Neutrophils % Lymphocytes % Monocytes % Eosinophils % Basophils % Myelocytes % Nucleated RBC % Absolute Neutrophils Absolute Lymphocytes Absolute Monocytes Absolute Eosinophils Absolute Basophils RBC Morphology Anisocytosis PT 10.2 INR 1.0 APTT 23.7 VBG pH 7.24 L VBG pCO2 33 L VBG pO2 35 VBG HCO3 14 L VBG Total CO2 14 L VBG O2 Saturation 63 VBG Base Excess -14 L Sodium Potassium Chloride Carbon Dioxide Anion Gap BUN Creatinine Est GFR (CKD-EPI 2020) Glucose Calcium Magnesium Total Bilirubin AST ALT Alkaline Phosphatase Troponin I Total Protein Albumin Lipase TSH Salicylates Ethyl Alcohol Last Vital Signs Temp 37.4 C 09/10/22 23:52 Pulse 114 H 09/10/22 23:52 Resp 12 09/10/22 23:52 BP 122/77 09/10/22 23:52 Pulse Ox 100 09/10/22 23:52 PAWSS Have you Been Recently Intoxicated or Drunk Within the Last 30 days?: Yes Have you Ever Experienced Previous Episodes of Alcohol Withdrawal?: Yes Have you ever Experienced Withdrawal Seizures?: Yes Have you ever Experienced Delirium Tremens(DT)s?: Yes Have you ever undergone Alcohol Rehabilitation Treatment (i.e, inpt ot outpatient treatment programs)?: Yes Have you ever Experienced Blackouts?: Yes Have you ever Combined Alcohol with other Downers within the last 90 days?: No Have you ever Combined Alcohol with any other Substance of Abuse during the last 90 days?: No Positive Blood Alcohol level on Presentation? [PCS.BAL]: Yes Evidence of Increased Autonomic Activity (i.e. HR>120, tremor, sweating, agitation, nausea)?: No Result: 7 Time Spent Time spent with Patient: >75 minutes Time was spent: preparing to see the patient(eg.review tests), obtaining and/or reviewing separately otained hiistory, ordering medications,tests, procedures, referring, communicating with other health residential child care counselor, indepentently interpreting results, counseling the patient and care coordination
[2022-09-11 01:47] LABS: Troponin I < 50 ng/L (<or=60)
[2022-09-11] MEDS: Normal Saline 1,000 ML 150 ML IV ×3 (02:38→23:35)
[2022-09-11 07:01] LABS: Lactate 0.9 mmol/L (0.6-1.4)
[2022-09-11 07:27] LABS: HCT 30.9 % (40.0-50.0); HGB 9.8 g/dL (13.5-17.5); MCH 26.3 pg (27.0-33.0); MCHC 31.7 % (32.0-36.0); MCV 83 fL (80-95); MPV 10.3 fL (8.0-11.0); Platelet Count 339 10^3/uL (130-400); RBC 3.72 10^6/uL (4.36-5.78); RDW 17.7 % (11.8-14.1); RDW-SD 54.4 fL; WBC 14.03 10^3/uL (4.4-10.8)
[2022-09-11 07:44] LABS: ALT 10 U/L (16-63); AST 10 U/L (15-37); Albumin 2.5 g/dL (3.4-5.0); Alkaline Phosphatase 86 U/L (46-116); Anion Gap 14.5 mmol/L (3-11); BUN 43 mg/dL (7-18); Bilirubin, Total 0.5 mg/dL (0.2-1.0); CO2 16.5 mmol/L (21.0-32.0); CREATININE 2.7 mg/dL (0.70-1.30); Calcium 8.8 mg/dL (8.5-10.1); Chloride 103 mmol/L (98-107); Estimated GFR 25.68 (mL/min/1.73m2); Glucose 179 mg/dL (74-106); Magnesium 1.7 mg/dL (1.8-2.4); PHOSPHORUS 3.9 mg/dL (2.6-4.7); Potassium 3.8 mmol/L (3.5-5.1); Sodium 134 mmol/L (136-145); Total Protein 7.1 g/dL (6.4-8.2)
[2022-09-11] MEDS: Thiamine 100 MG TAB PO (07:58)
[2022-09-11] MEDS: Multivitamin TAB 1 TAB PO (07:58)
[2022-09-11] MEDS: Enoxaparin 30 MG/0.3 ML SYR SC (07:58)
[2022-09-11] MEDS: Propranolol 20 MG TAB PO (07:59)
[2022-09-11] MEDS: Folic Acid 1 MG TAB PO (07:59)
[2022-09-11 08:07] LABS: Iron 16 ug/dL (65-175)
[2022-09-11] MEDS: Fidaxomicin 200 MG TAB PO ×2 (08:12→19:49)
[2022-09-11] MEDS: Insulin Aspart 300 UNITS/3 ML PEN SC ×4 (08:13→21:30)
[2022-09-11] MEDS: metroNIDAZOLE 500 MG/100 ML BAG 100 MG IVPB (08:13)
[2022-09-11 08:34] LABS: Ferritin 599 ng/mL (26-388); Folate > 20.0 ng/mL (8.6-20.0); Vitamin B12 299 pg/mL (193-986)
[2022-09-11 08:39] LABS: Bilirubin Negative (Negative); Blood Negative (Negative); Clarity Clear (Clear); Glucose Negative (Negative); Ketones Negative (Negative); Leukocyte Esterase Negative (Negative); Nitrite Negative (Negative); Specific Gravity 1.015 (1.005-1.025); Urobilinogen 0.2 mg/dL (Up to 0.2); pH 5.5 (5-8)
[2022-09-11 08:56] LABS: Bacteria Moderate HPF (Negative); C & S Indicated? Yes; Casts Negative LPF (Negative); Crystals Negative HPF (Negative); Epithelial Cells Rare HPF (Negative); Mucus Negative (Negative); RBC 0-2 HPF (0-2); WBC 0-2 HPF (0-5)
[2022-09-11 08:59] LABS: *AMPHETAMINES SCREEN URINE Negative (Negative); *BARBITURATES SCREEN URINE Positive (Negative); *BENZODIAZEPINES SCREEN URINE Positive (Negative); Cannabinoids THC Negative (Negative); Cocaine Screen,Urine Negative (Negative); METHADONE URINE SCREEN Negative (Negative); OPIATES URINE SCREEN Negative (Negative)
[2022-09-11 09:00] LABS: Tricyclic Antidepressants Negative (Negative)
[2022-09-11] MEDS: DULoxetine 30 MG CAP 60 MG PO (09:28)
--- NOTE | 2022-09-11 14:01 | PDOC.CMIN ---
Date of service: 09/11/22 Time of Service: 14:01 Care Management Initial Assmt Initial Assessment REASON FOR HOSPITALIZATION:: General weakness, anion gap acidosis, dehydration, CKD PREVIOUS FUNCTIONAL STATUS/SOCIAL/FAMILY SUPPORTS:: Mina lives in [facility], [facility]. He stated that he recently secured his own apartment, after living in sober housing. He has two daughters, Rebeca and . He reported that he is retired and disabled. He is independent at baseline in the community. CURRENT FUNCTIONAL STATUS:: Mina was sitting up in bed when CM met with him. He stated that he is not feeling well. Per report, he is receiving phenobarb for alcohol withdrawal, and is being treated at ICU level of care due to his severe withdrawal symptoms. Mina was pleasant, although limited in conversation, due to his condition at the time of the conversation. He stated that he has HH RN, PT, and that he has a good relationship with his PCP. CM will continue to follow. ADVANCE DIRECTIVES:: Not on file, CM will offer forms. Has patient been provided with info about the portal/API?: Yes Did the patient sign up for the portal?: Yes CODE STATUS:: Full Code INSURANCE COVERAGE / FINANCIAL ISSUES:: [employer] MCR replacement, [employer] CURRENT HOME/COMMUNITY SERVICES/EQUIPMENT:: [facility] RN, PT PRIMARY CARE PHYSICIAN:: Mel Llamas POTENTIAL DISCHARGE NEEDS:: Evaluations for further needs, follow up appointments. PATIENT/FAMILY EDUCATION NEEDS:: Review discharge instructions and limitations, discussion of self care needs including 'ask me three'. ANTICIPATED BARRIERS TO DISCHARGE:: None. TRANSPORTATION:: Via private vehicle by friend vs RCT PLAN:: Anticipate Mina will return home once medically cleared. He will transport via private vehicle with RCT. He will follow up with his PCP and discharge plan of care. CM will continue to follow. PFSH All Active Problems (Updated 09/11/22 @ 07:45 by Sean Patterson) Anemia (Chronic) Hypomagnesemia (Acute) Leukocytosis (leucocytosis) (Acute) Hyponatremia (Acute) Increased anion gap metabolic acidosis (Acute) Acute dehydration (Acute) General weakness (Acute) Gallstones (Acute) Kidney lesion, augustine, left (Acute) Microcytic anemia (Acute) Colitis due to Clostridium difficile (Acute) Alcohol use disorder (Chronic) Finger laceration (Acute) Post-operative pain (Acute) Dehiscence of operative wound (Acute) Subsequent encounter Skin ulcer of scrotum (Acute) De Quervain's tenosynovitis, left (Acute) 40 mg Depo-Medrol injection: 04/04/2022 Metabolic acidosis (Acute) Essential hypertension (Acute) CKD (chronic kidney disease) stage 4, GFR 15-29 ml/min (Chronic) Lamellar macular hole of both eyes (Acute 10/25/21) Type 1 diabetes, controlled, with neuropathy (Chronic ~05/2017) Adult onset, diagnosed 05/[address] [facility] [address]. 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 History of alcohol use disorder since 1989 with intermittent sobriety History of elevated PSA Per [facility]--01/14/2019 6.41, 04/28/2018 6.32; +Fam hx prostate cancer in F History of opioid abuse s/p surgeries; visiting brother 08/2021 ([facility] admission) History of renal cell cancer s/p nephrectomy Hyperkalemia (~05/2021) 05/29/21 [facility] Nephrology Lesion of bone of left forearm proximal radius lesion Osteoarthritis of elbows, bilateral Polyneuropathy associated with underlying disease DM Solitary left kidney [facility] Nephro (initial 07/2020); s/p nephrectomy on R 2004 renal cell cancer; partial nephrectomy on L 2007 Tubular adenoma of colon 08/2018 colonoscopy [facility]; recall 5y Type 1 diabetes mellitus without complications Surgical History H/O arthroscopy of knee Remotely--both knees at some point; he cannot recall what, but thinks meniscal H/O partial nephrectomy (~04/2007) left H/O skin graft [facility] 07/12/22 Scrotal Abscess 07/15/22 Skin Graft with Bolster removal History of nephrectomy, right (~03/2004) Renal cell cancer Family History Mother , 54yo breast cancer Alcohol abuse Breast cancer Depression Substance abuse Father , ~70yo prostate cancer Alcohol abuse Prostate cancer Substance abuse Sister , throat caner (nicotine use) Alcohol abuse Cancer Cervical Substance abuse Social History Smoking/Tobacco Use Status: Never Smoking risk assessment performed?: Yes Alcohol Intake: current Alcohol Intake frequency: a few times a month Previous attempts at quittin Counseling given: Yes ([facility]) Drug use: Never Substance use type: opiates Details: no IV drug use Adopted: No Caregiver/Support person: No Foster care: No Household members: other Details: Sober Living Facility Housing: apartment Number of Children: 4 number of grandchildren: 4 Communication Needs: None Education Level: college Do you need help understanding health information?: Rarely 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: RETIRED [employer] (ON SSDI) Pets and animals: Yes Pets and animals: cat(s) Sexually active: No Do you think of yourself as: straight/heterosexual Current gender identity: male What is your relationship status?: How often do you talk on the phone with friends or family?: three or more times per week How often do you get together with friends or relatives?: three or more times per week How often do you attend sikh or orthodox services?: 4 or more times per year Do you belong to any clubs or organized social groups?: no Panel score (0-1 are the most socially isolated patients): 2 What type of physical activity do you participate in: walking, bicycling and other Details: EXERCISE ON STATIONARY BIKE Duration: < 15 minutes/day Frequency: 3-4 times per week Erin/Voodoo: Presybeterian Agree to transfusion: No Seatbelt use: always Helmet use: Yes Drive intox or ride w/intox services delivery driver: No Water heater temp set <120 deg: Yes Working smoke detector in home: Yes Fire extinguisher in home: Yes Do you feel safe at home: Yes Do you feel safe in your relationship?: Yes Readmission Within the Past 30 Days Yes or No: Yes Date of First Admission Date of 1st Admission: 09/06/22 Date of this Admission Date of Admission: 09/11/22 This admission was: Through ED Assessment for Readmission Summary of readmission circumstances, based upon interviews: Discharged home and returned to the ED in less than 4 hours after reportedly drinking a pint of alcohol.
--- NOTE | 2022-09-11 14:51 | PGE_ITS ---
Date of Service Date of service: 09/11/22 Time of Service: 14:51 Assessment and Plan Assessment and plan (1) General weakness: Start date: 09/10/22 Status: Acute Assessment and plan: This s a 62-year-old alcoholic gentleman who drinks about 1/2 gallon of vodka daily in poor condition with poorly controlled medical disease processes. He is generally weak from multiple etiologies and deconditioned with physical therapy recently stated that he should be using a walker. The patient feels that he should be rehabilitated. His electrolyte abnormalities and chronic alcohol use certainly are increasing his weakness. He was admitted for IV hydration hopefully to reverse his metabolic acidosis with close monitoring for alcohol withdrawal and more aggressive treatment of his C. difficile colitis adding Flagyl IV to oral Dificid. He was discharged just hours before this admission to continue dificid for his C.Difficile. Dificid was not covered by his insurance and would have required a prior auth. so he was prescribed vancomyin for home. He does have leukocytosis which will be trended watching for other sources of infection. Long-term he may do well with rehabilitation but needs to stop drinking alcohol and take care of himself at home, living alone. He is a full code. (2) Acute dehydration: Status: Acute Assessment and plan: Patient will be hydrated with IV normal saline to help also with hyponatremia. Increased oral hydration chronically and discontinue alcohol use chronically. Electrolyte depletion will be repleted as needed. He does have exacerbation of his chronic CKD. (3) CKD (chronic kidney disease) stage 4, GFR 15-29 ml/min: Start date: 09/10/22 Status: Chronic Assessment and plan: Slightly exacerbated with patient to be trended with lab and avoid nephrotoxic medications. Lisinopril has been held. He has status post right nephrectomy for renal cell carcinoma. (4) Hyponatremia: Start date: 09/10/22 Status: Acute Assessment and plan: Most likely associated with chronic alcohol use. IV normal saline aggressively watching for fluid overload. Long-term alcohol cessation would be helpful. (5) Hypomagnesemia: Start date: 09/10/22 Status: Acute Assessment and plan: Recurrent depletion with alcohol use. IV magnesium sulfate 2 g was given and follow-up labs, repleting as needed. Long-term alcohol cessation would be helpful. (6) Increased anion gap metabolic acidosis: Start date: 09/10/22 Status: Acute Assessment and plan: IV hydration and hypoglycemic control watching closely for DKA if patient is not improving. For now glucometer measurements with short acting insulin coverage along with diet and hydration will be initiated. Trend labs. (7) Alcohol use disorder: Status: Chronic Assessment and plan: Patient needs stop drinking long-term and prognosis poor for change. During the admission from 77 tp 09/10/22 he endorsed desire to remain sober. He also now does discuss possible rehabilitation and cessation at hospitalizations but never followed through. We had requested a control and recovery special tactics consult but they did not visit with the patient d/t his C.Diff + status. . (8) Type 1 diabetes mellitus without complications: Assessment and plan: Hold outpatient medical therapy with glucometer measurements and moderate sliding scale for acting insulin for coverage. Adjust as needed. Recent hemoglobin A1c was below 8. (9) Leukocytosis (leucocytosis): Status: Acute Assessment and plan: No obvious source for infection other than C. difficile colitis at this time. Procalcitonin is slightly positive and we need to watch closely for sepsis syndrome. Patient is stable presently and Flagyl will be added to oral Dificid for C. difficile colitis. Follow-up clinically with cultures and advancing antibiotic therapy if indicated. Patient is at risk for infection with compromised immune system. We will avoid broad-spectrum IV antibiotic therapy because of C. difficile colitis. (10) Colitis due to Clostridium difficile: Start date: 09/09/22 Status: Acute Assessment and plan: C. difficile positive with recent hospitalization. Cont. Dificid p.o. and IV Flagyl. (11) Anemia: Status: Chronic Assessment and plan: Most likely secondary to chronic disease and poor nutrition. Stable. (12) Discharge planning issues: Status: Acute Assessment and plan: Referrals being sent to SNFs. Subjective Subjective Patient reports: feels better and afebrile; denies nausea, vomiting or shortness of breath Interval history since last seen: Pt very lethargic initially this AM when I evaluated. Later was awake and sitting in chair. Conversant. NAD Exam Narrative Exam Narrative: General: Patient appears older than stated age, moderately obese and deconditioned with flattened affect but in no acute distress. HEENT: Sclera clear. MMM Lungs: Fair aeration clear to auscultation Heart: Regular rate and rhythm with distant heart sounds. Abdomen: Obese contour, soft and nontender Extremities: L proximal upper arm with edema/swelling. No erythema of warm. Nonpitting BLE edema. No calf tenderness. Skin: Pale, warm and dry. Neuro: no focal motor deficits and no tremor. Psych: Flattened affect with depressed mood. Patient has poor insight. No abnormal thought processes. Remote and recent memory appear to be grossly intact. Objective Last Vital Signs Temp 37.4 C 09/11/22 07:27 Pulse 116 H 09/11/22 07:27 Resp 18 09/11/22 03:05 BP 133/82 09/11/22 07:27 Pulse Ox 98 09/11/22 07:27 Laboratory Results - last 24 hr 09/10/22 09/10/22 09/10/22 20:40 20:40 20:40 WBC 20.46 H RBC 3.81 L Hgb 10.0 L Hct 32.0 L MCV 84 MCH 26.2 L MCHC 31.3 L RDW 17.9 H Plt Count 369 MPV 10.5 Immature Gran % 0.0 Neutrophils % 77.0 Band Neutrophils % 1 Lymphocytes % 12.0 Monocytes % 6.0 Eosinophils % 2.0 Basophils % 1.0 Myelocytes % 1 Nucleated RBC % 0.0 Absolute Neutrophils 15.96 H Absolute Lymphocytes 2.46 Absolute Monocytes 1.23 H Absolute Eosinophils 0.41 Absolute Basophils 0.20 RBC Morphology See Below Anisocytosis 1+ PT INR APTT VBG pH VBG pCO2 VBG pO2 VBG HCO3 VBG Total CO2 VBG O2 Saturation VBG Base Excess VBG Lactate Sodium 133 L Potassium 4.1 Chloride 100 Carbon Dioxide 14.8 L Anion Gap 18.2 H BUN 44 H Creatinine 3.5 H D Est GFR (CKD-EPI 2020) 18.81 Glucose 225 H Hemoglobin A1c Calcium 8.7 Phosphorus Magnesium 1.5 L Iron Ferritin Total Bilirubin 0.4 AST 16 ALT 10 L Alkaline Phosphatase 102 Troponin I < 50 Total Protein 7.2 Albumin 2.9 L Lipase 56 Vitamin B12 Folate TSH 3.41 Urine Color Urine Clarity Urine pH Ur Specific [place] Urine Protein Urine Ketones Urine Blood Urine Nitrite Urine Bilirubin Urine Urobilinogen Ur Leukocyte Esterase Urine RBC Urine WBC Ur Epithelial Cells Urine Crystals Urine Bacteria Urine Casts Urine Mucus Ur Culture Indicated? Urine Glucose Salicylates < 2.8 Urine Opiates Screen Urine Methadone Screen Ur Barbiturates Screen Ur Tricyclics Screen Ur Amphetamines Screen U Benzodiazepines Scrn Urine Cocaine Screen Ur THC Screen Ethyl Alcohol 84.9 H 09/10/22 09/10/22 09/11/22 20:40 20:40 01:15 WBC RBC Hgb Hct MCV MCH MCHC RDW Plt Count MPV Immature Gran % Neutrophils % Band Neutrophils % Lymphocytes % Monocytes % Eosinophils % Basophils % Myelocytes % Nucleated RBC % Absolute Neutrophils Absolute Lymphocytes Absolute Monocytes Absolute Eosinophils Absolute Basophils RBC Morphology Anisocytosis PT 10.2 INR 1.0 APTT 23.7 VBG pH 7.24 L VBG pCO2 33 L VBG pO2 35 VBG HCO3 14 L VBG Total CO2 14 L VBG O2 Saturation 63 VBG Base Excess -14 L VBG Lactate Sodium Potassium Chloride Carbon Dioxide Anion Gap BUN Creatinine Est GFR (CKD-EPI 2020) Glucose Hemoglobin A1c Calcium Phosphorus Magnesium Iron Ferritin Total Bilirubin AST ALT Alkaline Phosphatase Troponin I < 50 Total Protein Albumin Lipase Vitamin B12 Folate TSH Urine Color Urine Clarity Urine pH Ur Specific [place] Urine Protein Urine Ketones Urine Blood Urine Nitrite Urine Bilirubin Urine Urobilinogen Ur Leukocyte Esterase Urine RBC Urine WBC Ur Epithelial Cells Urine Crystals Urine Bacteria Urine Casts Urine Mucus Ur Culture Indicated? Urine Glucose Salicylates Urine Opiates Screen Urine Methadone Screen Ur Barbiturates Screen Ur Tricyclics Screen Ur Amphetamines Screen U Benzodiazepines Scrn Urine Cocaine Screen Ur THC Screen Ethyl Alcohol 09/11/22 09/11/22 09/11/22 05:35 06:50 06:50 WBC 14.03 H RBC 3.72 L Hgb 9.8 L Hct 30.9 L MCV 83 MCH 26.3 L MCHC 31.7 L RDW 17.7 H Plt Count 339 MPV 10.3 Immature Gran % Neutrophils % Band Neutrophils % Lymphocytes % Monocytes % Eosinophils % Basophils % Myelocytes % Nucleated RBC % Absolute Neutrophils Absolute Lymphocytes Absolute Monocytes Absolute Eosinophils Absolute Basophils RBC Morphology Anisocytosis PT INR APTT VBG pH VBG pCO2 VBG pO2 VBG HCO3 VBG Total CO2 VBG O2 Saturation VBG Base Excess VBG Lactate Sodium 134 L Potassium 3.8 Chloride 103 Carbon Dioxide 16.5 L Anion Gap 14.5 H BUN 43 H Creatinine 2.7 H Est GFR (CKD-EPI 2020) 25.68 Glucose 179 H Hemoglobin A1c Calcium 8.8 Phosphorus Cancelled 3.9 Magnesium 1.7 L Iron Ferritin Total Bilirubin 0.5 AST 10 L ALT 10 L Alkaline Phosphatase 86 Troponin I Total Protein 7.1 Albumin 2.5 L Lipase Vitamin B12 Folate TSH Urine Color Urine Clarity Urine pH Ur Specific [place] Urine Protein Urine Ketones Urine Blood Urine Nitrite Urine Bilirubin Urine Urobilinogen Ur Leukocyte Esterase Urine RBC Urine WBC Ur Epithelial Cells Urine Crystals Urine Bacteria Urine Casts Urine Mucus Ur Culture Indicated? Urine Glucose Salicylates Urine Opiates Screen Urine Methadone Screen Ur Barbiturates Screen Ur Tricyclics Screen Ur Amphetamines Screen U Benzodiazepines Scrn Urine Cocaine Screen Ur THC Screen Ethyl Alcohol 09/11/22 09/11/22 09/11/22 06:50 06:50 06:50 WBC RBC Hgb Hct MCV MCH MCHC RDW Plt Count MPV Immature Gran % Neutrophils % Band Neutrophils % Lymphocytes % Monocytes % Eosinophils % Basophils % Myelocytes % Nucleated RBC % Absolute Neutrophils Absolute Lymphocytes Absolute Monocytes Absolute Eosinophils Absolute Basophils RBC Morphology Anisocytosis PT 10.0 INR 1.0 APTT VBG pH VBG pCO2 VBG pO2 VBG HCO3 VBG Total CO2 VBG O2 Saturation VBG Base Excess VBG Lactate Sodium Potassium Chloride Carbon Dioxide Anion Gap BUN Creatinine Est GFR (CKD-EPI 2020) Glucose Hemoglobin A1c Calcium Phosphorus Magnesium Iron 16 L Ferritin 599 H Total Bilirubin AST ALT Alkaline Phosphatase Troponin I Total Protein Albumin Lipase Vitamin B12 299 Folate > 20.0 H TSH Urine Color Urine Clarity Urine pH Ur Specific [place] Urine Protein Urine Ketones Urine Blood Urine Nitrite Urine Bilirubin Urine Urobilinogen Ur Leukocyte Esterase Urine RBC Urine WBC Ur Epithelial Cells Urine Crystals Urine Bacteria Urine Casts Urine Mucus Ur Culture Indicated? Urine Glucose Salicylates Urine Opiates Screen Urine Methadone Screen Ur Barbiturates Screen Ur Tricyclics Screen Ur Amphetamines Screen U Benzodiazepines Scrn Urine Cocaine Screen Ur THC Screen Ethyl Alcohol 09/11/22 09/11/22 09/11/22 06:50 06:58 06:58 WBC RBC Hgb Hct MCV MCH MCHC RDW Plt Count MPV Immature Gran % Neutrophils % Band Neutrophils % Lymphocytes % Monocytes % Eosinophils % Basophils % Myelocytes % Nucleated RBC % Absolute Neutrophils Absolute Lymphocytes Absolute Monocytes Absolute Eosinophils Absolute Basophils RBC Morphology Anisocytosis PT INR APTT VBG pH VBG pCO2 VBG pO2 VBG HCO3 VBG Total CO2 VBG O2 Saturation VBG Base Excess VBG Lactate 0.9 Sodium Potassium Chloride Carbon Dioxide Anion Gap BUN Creatinine Est GFR (CKD-EPI 2020) Glucose Hemoglobin A1c Calcium Phosphorus Magnesium Iron Ferritin Total Bilirubin AST ALT Alkaline Phosphatase Troponin I Total Protein Albumin Lipase Vitamin B12 Folate TSH Urine Color Yellow Urine Clarity Clear Urine pH 5.5 Ur Specific [place] 1.015 Urine Protein 100 H Urine Ketones Negative Urine Blood Negative Urine Nitrite Negative Urine Bilirubin Negative Urine Urobilinogen 0.2 Ur Leukocyte Esterase Negative Urine RBC 0-2 Urine WBC 0-2 Ur Epithelial Cells Rare Urine Crystals Negative Urine Bacteria Moderate Urine Casts Negative Urine Mucus Negative Ur Culture Indicated? Yes Urine Glucose Negative Salicylates Urine Opiates Screen Negative Urine Methadone Screen Negative Ur Barbiturates Screen Positive A Ur Tricyclics Screen Negative Ur Amphetamines Screen Negative U Benzodiazepines Scrn Positive A Urine Cocaine Screen Negative Ur THC Screen Negative Ethyl Alcohol 09/11/22 07:15 WBC RBC Hgb Hct MCV MCH MCHC RDW Plt Count MPV Immature Gran % Neutrophils % Band Neutrophils % Lymphocytes % Monocytes % Eosinophils % Basophils % Myelocytes % Nucleated RBC % Absolute Neutrophils Absolute Lymphocytes Absolute Monocytes Absolute Eosinophils Absolute Basophils RBC Morphology Anisocytosis PT INR APTT VBG pH VBG pCO2 VBG pO2 VBG HCO3 VBG Total CO2 VBG O2 Saturation VBG Base Excess VBG Lactate Sodium Potassium Chloride Carbon Dioxide Anion Gap BUN Creatinine Est GFR (CKD-EPI 2020) Glucose Hemoglobin A1c Cancelled Calcium Phosphorus Magnesium Iron Ferritin Total Bilirubin AST ALT Alkaline Phosphatase Troponin I Total Protein Albumin Lipase Vitamin B12 Folate TSH Urine Color Urine Clarity Urine pH Ur Specific [place] Urine Protein Urine Ketones Urine Blood Urine Nitrite Urine Bilirubin Urine Urobilinogen Ur Leukocyte Esterase Urine RBC Urine WBC Ur Epithelial Cells Urine Crystals Urine Bacteria Urine Casts Urine Mucus Ur Culture Indicated? Urine Glucose Salicylates Urine Opiates Screen Urine Methadone Screen Ur Barbiturates Screen Ur Tricyclics Screen Ur Amphetamines Screen U Benzodiazepines Scrn Urine Cocaine Screen Ur THC Screen Ethyl Alcohol PAWSS Have you Been Recently Intoxicated or Drunk Within the Last 30 days?: Yes Have you Ever Experienced Previous Episodes of Alcohol Withdrawal?: Yes Have you ever Experienced Withdrawal Seizures?: No Have you ever Experienced Delirium Tremens(DT)s?: No Have you ever undergone Alcohol Rehabilitation Treatment (i.e, inpt ot outpatient treatment programs)?: No Have you ever Experienced Blackouts?: Yes Have you ever Combined Alcohol with other Downers within the last 90 days?: No Have you ever Combined Alcohol with any other Substance of Abuse during the last 90 days?: No Positive Blood Alcohol level on Presentation? [PCS.BAL]: Yes Evidence of Increased Autonomic Activity (i.e. HR>120, tremor, sweating, agitation, nausea)?: Yes Result: 5 Time Spent with Patient Time Spent with Patient: 25-34 minutes Time was spent: preparing to see the patient(eg.review tests), obtaining and/or reviewing separately otained hiistory, ordering medications,tests, procedures, referring, communicating with other health care transitions manager, indepentently interpreting results, counseling the patient and care coordination
[2022-09-11] MEDS: Acetaminophen 325 MG TAB PO ×2 (15:25→19:56)
--- NOTE | 2022-09-11 16:11 | PHA.REVIEW2 ---
Pharmacy Admission Review Admission Clinical Review Admission Pharmacy Review: (Updated 09/11/22 @ 15:08 by Chauncey Torrez MD) Discharge planning issues (Acute) Hypomagnesemia (Acute) Leukocytosis (leucocytosis) (Acute) Hyponatremia (Acute) Increased anion gap metabolic acidosis (Acute) Acute dehydration (Acute) General weakness (Acute) Colitis due to Clostridium difficile (Acute) lactose intolerant Adverse Reaction (Mild, Uncoded 08/21/22 08:46) Diarrhea Resuscitation Status Full Code Height 5 ft 10 in Weight 102 kg Comments Comments/Follow Ups: Watch BP, HR, SCr, mag, H/H, Bg, labs, for culture results and for med changes (possible renal dose adjustments, home meds if renal function improves). Pharmacy Admission Review Renal Dosing Renal Dosing: BUN 43 mg/dL (7-18) H 09/11/22 06:50 Creatinine 2.7 mg/dL (0.70-1.30) H 09/11/22 06:50 Medications needing adjustments: Reviewed (Crcl ~33.5 mL/min current meds okay) Anticoagulation Anticoagulation: Hgb 9.8 g/dL (13.5-17.5) L 09/11/22 06:50 Hct 30.9 % (40.0-50.0) L 09/11/22 06:50 Plt Count 339 10^3/uL (130-400) 09/11/22 06:50 INR 1.0 (0.9-1.1) 09/11/22 06:50 Creatinine 2.7 mg/dL (0.70-1.30) H 09/11/22 06:50 DVT Prophylaxis: Intervened (enoxaparain dosing adjusted due to improvement in renal function) Therapeutic Anticoagulation: N/A Opiate Usage Evaluate Pain Scale/Pains Meds: N/A Relevant Labs Relevant Labs: Sodium 134 mmol/L (136-145) L 09/11/22 06:50 Potassium 3.8 mmol/L (3.5-5.1) 09/11/22 06:50 Chloride 103 mmol/L (98-107) 09/11/22 06:50 Phosphorus 3.9 mg/dL (2.6-4.7) 09/11/22 06:50 Magnesium 1.7 mg/dL (1.8-2.4) L 09/11/22 06:50 Electrolytes, C-Reactive P, ESR: Reviewed (IV mag ordered last night) DM Control DM Control: Intervened (pts home insulin glargine was not ordered, mentioned to provider) Insulin Dosing, Diabetic Medication: scheduled insulin glargine and sliding scale aspart ordered Cardiac Review Cardiac Review: Troponin I < 50 ng/L (<or=60) 09/11/22 01:15 BP, HR, EF%: Reviewed (BP has been up and down some, HR has been elevated so far this admission) QTc Review QTc: Reviewed (QTc 440 on admission) IV to PO Switch IV Medications: Reviewed Home Meds Home Med List reviewed: Reviewed Relevent Home Meds Not ordered & why?: dulaglutide (home meds unable to be brought in per nursing), insulin lispro (has insulin aspart ordered), lisinopril and naproxen (avoiding nephrotoxic meds per H&P), and vancomycin (has fidaxomicin ordered) Current Meds Current Medication Order Review: Intervened Comments: Pt had both metoprolol and propranolol ordered from home med list. PT was supposed to take propranolol for 3 more days and hold the metoprolol per provider. Provider made aware and propranolol was discontinued. Discontinued duplicate med orders. Pharmacy Antibiotic Review Pharmacy Antibiotic Activity: Abx regimen adjustment, C/S review and D/C antibiotic Comments: Vanco and metronidazole were ordered on admission for C.Diff. Vanco was changed to fidaxomicin as the pt was taking that on his previous admission (yesterday). Metronidazole was discontinued due to interaction with disulfram (pt picked med up at the beginning of this month and took some but did not remember when the last dose he took was per nursing) in addition to improvement in stooling overall per provider. Urine culture pending. Comments Comments/Follow Ups: Watch BP, HR, SCr, mag, H/H, Bg, labs, for culture results and for med changes (possible renal dose adjustments, home meds if renal function improves).
--- NOTE | 2022-09-11 17:27 | PT.INIE ---
Date of service: 09/11/22 Time of Service: 10:59 PT Notes Visit Reasons: General weakness,Anion gap acidosis,Dehydration,CK Physical Therapy Inpatient Initial Evaluation Date: 09/11/2022 Referring Doctor: Sean Mar MD PT Orders: PT CONSULT: Eval/treat Precautions: Fall. Standard. Activity as tolerated. Patient Profile/Admitting Diagnosis:? Mina is a 62-year-old [id number] male who was discharged on 09/10/2022 to home with PT/OT/NURSING SURGICAL SERVICES DIRECTOR but returned same night and presented to the ED with generalized weakness after taking hard liquor on [facility].? Patient is re-admitted for continued management of EtOH withdrawal, colitis due to C. 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 PMHX: All Active Problems?(Updated 09/10/22 @ 22:19 by Froilan Pratt MD) Increased anion gap metabolic acidosis (Acute) Acute dehydration (Acute) General weakness (Acute) Gallstones (Acute) Kidney lesion, [place], left (Acute) Microcytic anemia (Acute) Colitis due to Clostridium difficile (Acute) Chest pain (Acute) Hypomagnesemia (Acute) Discharge planning issues (Acute) DVT prophylaxis (Acute) Elevated white blood cell count (Acute) Alcohol use disorder (Acute) Finger laceration (Acute) Alcohol withdrawal (Acute) Acute dehydration (Acute) Post-operative pain (Acute) Dehiscence of operative wound (Acute) Subsequent encounter Skin ulcer of scrotum (Acute) De Quervain's tenosynovitis, left (Acute) 40 mg Depo-Medrol injection: 04/04/2022 Metabolic acidosis (Acute) Essential hypertension (Acute) CKD (chronic kidney disease) stage 4, GFR 15-29 ml/min (Acute) Alcohol use disorder, moderate, in early remission (Acute ~12/2021) 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 Secondary hyperparathyroidism (Acute ~05/2021) 05/29/21 [facility] [place] Nephrology Elevated PSA (Acute) Family history of prostate cancer (Chronic) F Tubular adenoma of colon (Chronic) 08/2018 colonoscopy [facility]; recall 5y Hyperlipidemia (Chronic) Hypertension (Chronic) RX Lisinopril (stopped due to creatinine) Medical History?(Reviewed 09/11/22 @ 10:5 by Rosanna Julian DPT) Alcohol intoxication (~12/02/21) Bilateral carpal tunnel syndrome Carpal tunnel syndrome on both sides +[employer] 05/08/2020 Chronic gingivitis, plaque induced 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 History of alcohol use disorder since 1989 with intermittent sobriety History of elevated PSA Per [facility]--01/14/2019 6.41, 04/28/2018 6.32; +Fam hx prostate cancer in F History of opioid abuse s/p surgeries; visiting brother 08/2021 ([facility] admission) History of renal cell cancer s/p nephrectomyHyperkalemia (~05/2021) 05/29/21 [facility] [place] Nephrology Lesion of bone of left forearm proximal radius lesion Osteoarthritis of elbows, bilateral Polyneuropathy associated with underlying disease DM Solitary left kidney [facility] Nephro (initial 07/2020); s/p nephrectomy on R 2004 renal cell cancer; partial nephrectomy on L 2007 Type 1 diabetes mellitus without complications Surgical History?(Reviewed 09/11/22 @ 10:5 by Rosanna Julian DPT) H/O arthroscopy of knee Remotely--both knees at some point; he cannot recall what, but thinks meniscal H/O partial nephrectomy (~04/2007) left H/O skin graft [facility] 07/12/22 Scrotal Abscess 07/15/22 Skin Graft with Bolster removal History of nephrectomy, right (~03/2004) Renal cell cancer Social History/Home Situation: Lives alone in a private home.? Independent with all aspects of ADLs prior to admission.? Did not use any assistive device. Equipment Owned/DME: None Subjective: States that he went home too early. Knows how wrong he was about taking in alcohol as soon as he arrived home yesterday. Feels that he needs to go to a rehab center to get better. Complains of pain in B knees that really get him everytin=me he stands up. 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 Per Nurse Shaw pre-prandial(lunch) sugar was 374 mg/dL. Objective: General Observation: Supine in bed.? Graft harvest site on left quad area healing well.? L UE and B feet swollen, Nurse Valeria aware. IV access through R and L brachial areas. Mental Status: Alert and oriented as to person, place, time, and purpose. Able to pay attention, focus, and respond appropriately. Pain: 4-5/10 in in B knees and in R hand Vital Signs: Closely monitored by nursing staff ROM: Right Upper Extremity: ? Shoulder Flexion WFL. Shoulder abduction WFL. Elbow flexion WFL. Wrist flexion WFL. Functional opening and closing of hand impaired Left Upper Extremity:? Shoulder Flexion WFL. Shoulder abduction WFL. Elbow flexion WFL. Wrist flexion WFL. Functional opening and closing of hand impaired. Right Lower Extremity: Hip flexion lacks the last 25% of AROM. Hip abduction WFL. Knee flexion 40 degrees to 90 degrees. Knee extension -40 degrees. Ankle dorsiflexion to neutral only. Ankle plantarflexion WFL. Left Lower Extremity: Hip flexion lacks the last 25% of AROM. Hip abduction WFL. Knee flexion 40 degrees to 90 degrees. Knee extension -40 degrees. Ankle dorsiflexion to neutral only. Ankle plantarflexion WFL. Strength: Right Upper Extremity: Shoulder flexors 4-/5. Shoulder abductors 4-/5. Elbow flexors 4-/5. Elbow extensors 4-/5. Information Security Officer weak and minimally functional. Left Upper Extremity: Shoulder flexors 4-/5. Shoulder abductors 4-/5. Elbow flexors 4-/5. Elbow extensors 4-/5. Information Security Officer weak and minimally functional. Right Lower Extremity: Hip flexors 3-/5. Hip abductors 4-/5. Knee flexors 3-/5. Knee extensors 3-/5. Ankle dorsiflexors 3-/5. Ankle plantarflexors 4-/5. Left Lower Extremity: Hip flexors 3-/5. Hip abductors 4-/5. Knee flexors 3-/5. Knee extensors 3-/5. Ankle dorsiflexors 3-/5. Ankle plantarflexors 4-/5. Bed Mobility/Transfers: Supine to sit minimal assist with HOB at 30 degrees Sit to stand minimal assist, cues provided to use both hands for support Stand to sit contact-guard assist, cues provided to use both hands for support Bed to bedside commode minimal assist, cues provided to use both hands for support Bedside commode to bed minimal assist, cues provided to use both hands for support Bed to reclining chair minimal assist, cues provided to use both hands for support Reclining chair to bed minimal assist, cues provided to use both hands for support Gait: Instructed patient with level surface ambulation of 6-8 feet requiring minimal assist and use of FWW.? Priti decreased. Step height decreased. Step length decreased.? Complained of pain in B knees with walking. Tends to flop onto chair. Reported fatigue from doing relatively less compared to when he first came in. Balance: Static Sitting: Normal Dynamic Sitting: Normal Static Standing: Fair Dynamic Standing: Fair Special Tests: Mobility Limitations Standardized Measure [facility] 6 clicks Basic Mobility Inpatient Short Form: Raw Score: 18? CMS Score: 47% deficit? ? ? Informed Consent/Education:? Patient was instructed in purpose of PT consult and plan of care. Agreeable to proceed with established PT POC to achieve personal goals. 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 Patient with B CTS, elbow OA, and diabetic polyneuropathy contributing to this B hand weakness. Will benefit from OT consult, spoke with Nurse Shaw about benefit of said referral. Dylan requires the use of FWW for all transfer and ambulation task performance as well the assistance of one person and wheelchair follow for safety.? His goal is to regain his independent ability with ambulation without any device per prior level of function.? Unable to fully use R hand for walker handling due to pain and swelling.? Provided assistance with use of commode and aftercare twice today for bowel movement. Will benefit from OT evaluation of R hand to regain full use of R hand. Patient presents with clinical signs and symptoms consistent with current/admitting diagnoses that have resulted to mobility limitations, gait instability, generalized weakness, and overall ADL decline as demonstrated by the following impairment level findings: 1.? Decreased strength to B UE/LE major muscle groups 2.? Impaired sitting/standing balance 3.? Impaired activity tolerance 4.? Limitation of joint range of motion in R hand 5.? Shortness of breath 6.? Weakn job lithographer and grasp on B sides Impairments are contributing to the following functional limitations: 1.? Decline in bed mobility skills 2.? Decline in transfer skills 3.? Difficulty with ambulation without assistive device and physical assistance 4.? Increased completion time for mobility ADL performance 5.? Increased risk for falls 6.? Difficulty with managing steps alone safely Patient is assessed as a 26493 moderate complexity based on the following: History: 62--year-old male with past medical history as indicated above Examination: Demonstrable impairment in strength, balance, and mobility level with underlying impairments and functional limitations as exhibited above as well as deficit score of 47% utilizing the [facility] Mobility Inpatient Short Form Presentation: Evolving Decision Makin moderate complexity Goals: Goals X1 week 1. Supine-Sit independent 2. Sit-Supine independent 3. Sit-Stand independent 4. Stand-Sit independent with FWW 5. Bed-Chair independent with FWW 6. Chair-Bed independent with FWW 7. Independent gait on level surface with use of FWW for at least 300 feet without report of pain nor dyspnea 8. Independent stair negotiation while holding onto B rails for at least 3 steps without report of pain nor dyspnea 9. Independent with home exercise program 10. Good static and dynamic standing balance/tolerance Plan of Care/Treatment Plan: 1-2x/day, 7 days/week x 1 week. Plan of care has been reviewed with the STONECUTTER APPRENTICE HAND providing the service under Physical Therapy direction. Initiate Physical Therapy intervention for pain management as needed, strengthening, bed mobility, transfers, gait, stairs, balance training, and use of assistive device. DISCHARGE RECOMMENDATIONS: [] ? Home with no services [] [] ? Home with services [] ? Home with outpatient PT [] [] ? SNF for continued rehabilitation [] [] ? [facility] Care [] [] ? SNF versus LTC based on ability to participate and progress [] [X] SNF vs. PT based on prgoress towards goals TREATMENT CODE/TIME: 66450 x 20 minutes,? 58091 x 21 minutes beginning at 10:59 AM. Thank you for the opportunity to participate in the care of this patient. Rosanna Julian PT, DPT, CLT [facility] [place], [place]
--- NOTE | 2022-09-11 17:51 | PT.INTREAT ---
Date of service: 09/11/22 Time of Service: 12:50 PT Notes Visit Reasons: General weakness,Anion gap acidosis,Dehydration,CK Physical Therapy Inpatient Treatment Note Date: 09/11/2022 Precautions: Fall. Standard. Activity as tolerated. Subjective: Had a hard time getting up from bedside chair with nursing staff. Called in to facilitate safe transfer as patient needed to be brought downstairs for testing. Objective: General Observation: Seated on bedside chair.? Mental Status: Alert and oriented as to person, place, time, and purpose. Able to pay attention, focus, and respond appropriately. Pain: 4-5/10 in in B knees and in R hand Vital Signs: Closely monitored by nursing staff Bed Mobility/Transfers: Sit to stand minimal assist, cues provided to use both hands for support Stand to sit contact-guard assist, cues provided to use both hands for support Gait: Instructed patient with level surface ambulation of 6-8 feet requiring minimal assist and use of FWW.? Priti decreased. Step height decreased. Step length decreased.? Complained of pain in B knees with walking.? THERA EX: Worked on chair push ups whiles seated on bedside chair to improve transfer skills. Instcructed on seated marches x10 and LAqs x 10. Balance: Static Sitting: Normal Dynamic Sitting: Normal Static Standing: Fair Dynamic Standing: Fair ASSESSMENT: Provided assistance with transfer from bedside chair to transport chair for testing downstairs as MARIANNE Rodriguez and Nurse Shaw had a challenging time moving patient out of bedside chair. 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 Patient with B CTS,? elbow OA,? and diabetic polyneuropathy contributing to this B hand weakness.? Will benefit from OT consult,? spoke with Nurse Shaw about benefit of said referral.? Dylan requires the use of FWW for all transfer and ambulation task performance as well the assistance of one person and wheelchair follow for safety.? His goal is to regain his independent ability with ambulation without any device per prior level of function.? Unable to fully use R hand for walker handling due to pain and swelling.? Provided assistance with use of commode and aftercare twice today for bowel movement. Will benefit from OT evaluation of R hand to regain full use of R hand. DISCHARGE RECOMMENDATIONS: [] ? Home with no services [] [] ? Home with services [] ? Home with outpatient PT [] [] ? SNF for continued rehabilitation [] [] ? [facility] Care [] [] ? SNF versus LTC based on ability to participate and progress [] [X]? SNF vs. PT based on prgoress towards goals TREATMENT CODE/TIME: 73435 x 15 minutes beginning at 12:50 PM.
[2022-09-11] MEDS: Diclofenac 1% Gel 100 GM TUBE TP (19:48)
[2022-09-11] MEDS: Magnesium Oxide 400 MG TAB PO (19:49)
[2022-09-11] MEDS: Insulin Glargine 300 UNITS/3 ML PEN 44 UNITS SC (21:28)
[2022-09-11] MEDS: Atorvastatin 20 MG TAB PO (21:28)
[2022-09-11] MEDS: Gabapentin 300 MG CAP PO (21:28)
[2022-09-11] MEDS: Metoprolol CR 25 MG TABCR PO (21:28)
[2022-09-12] VITALS (8 sets, daily range): BP systolic 134–154; BP diastolic 74–87; PULSE 102–122; RESP 18–20; TEMP 36.5–38.3; O2SAT 96–97
[2022-09-12] MEDS: Normal Saline 1,000 ML 150 ML IV (05:52)
[2022-09-12 07:09] LABS: Abs Immature Grans 0.13 10^3/uL (0.0-0.06); Absolute Eosinophil Count 0.32 10^3/uL (0.0-0.7); Absolute Lymphocyte Count 1.46 10^3/uL (1.2-3.4); Basophils % 0.4; Eosinophils % 2.4; HCT 25.7 % (40.0-50.0); HGB 8.2 g/dL (13.5-17.5); Lymphocytes % 10.8; MCH 26.3 pg (27.0-33.0); MCHC 31.9 % (32.0-36.0); MCV 82 fL (80-95); MPV 9.3 fL (8.0-11.0); Monocytes % 9.5; Neutrophils % 75.9; Platelet Count 312 10^3/uL (130-400); RBC 3.12 10^6/uL (4.36-5.78); RDW 17.6 % (11.8-14.1); WBC 13.53 10^3/uL (4.4-10.8)
[2022-09-12 07:14] LABS: Absolute Basophil Count 0.05 10^3/uL (0.0-0.2); Absolute Monocyte Count 1.29 10^3/uL (0.1-0.8); Absolute Neutrophil Count 10.27 10^3/uL (1.2-6.7)
[2022-09-12 07:19] LABS: Anion Gap 10.8 mmol/L (3-11); BUN 31 mg/dL (7-18); CO2 19.2 mmol/L (21.0-32.0); CREATININE 1.9 mg/dL (0.70-1.30); Calcium 8.6 mg/dL (8.5-10.1); Chloride 104 mmol/L (98-107); Estimated GFR 39.15 (mL/min/1.73m2); Glucose 166 mg/dL (74-106); Magnesium 1.4 mg/dL (1.8-2.4); Potassium 3.4 mmol/L (3.5-5.1); Sodium 134 mmol/L (136-145)
[2022-09-12] MEDS: Diclofenac 1% Gel 100 GM TUBE TP ×4 (07:42→20:24)
[2022-09-12] MEDS: Insulin Aspart 300 UNITS/3 ML PEN SC ×4 (07:43→22:39)
[2022-09-12] MEDS: DULoxetine 30 MG CAP 60 MG PO (07:44)
[2022-09-12] MEDS: Thiamine 100 MG TAB PO (07:44)
[2022-09-12] MEDS: Fidaxomicin 200 MG TAB PO ×2 (07:44→20:24)
[2022-09-12] MEDS: Multivitamin TAB 1 TAB PO (07:44)
[2022-09-12] MEDS: Enoxaparin 40 MG/0.4 ML SYR SC (07:44)
[2022-09-12] MEDS: Magnesium Oxide 400 MG TAB PO ×2 (07:44→20:25)
--- NOTE | 2022-09-12 08:37 | OTIE_ITS ---
Occupational Therapy Notes Inpatient Occupational Therapy Evaluation Date: 09/12/22 Referring Doctor:Chauncey Torrez MD OT Orders: Non urgent Precautions: Fall, contact, full PATIENT PROFILE/ADMITTING DIAGNOSIS: Pt is a 62 year old male who came into the ED and then went home. He then came back the next day and was admitted to [facility] surg for the following dx of anemia, hypomagnesemia, leukocytosis, hyponatremia, increased anion gap metabloic acidosis, acute dehydration, general weakness, gallstones, kidney lesion, microcytic anemia, essential HTN. He has decreased (R) UE use of his hand with increased edema and decreased ROM actively. Past Medical History: All Active Problems?(Updated 09/11/22 @ 07:45 by Sean Patterson) Anemia (Chronic) Hypomagnesemia (Acute) Leukocytosis (leucocytosis) (Acute) Hyponatremia (Acute) Increased anion gap metabolic acidosis (Acute) Acute dehydration (Acute) General weakness (Acute) Gallstones (Acute) Kidney lesion, habematolel, left (Acute) Microcytic anemia (Acute) Colitis due to Clostridium difficile (Acute) Alcohol use disorder (Chronic) Finger laceration (Acute) Post-operative pain (Acute) Dehiscence of operative wound (Acute) Subsequent encounterSkin ulcer of scrotum (Acute) De Quervain's tenosynovitis, left (Acute) 40 mg Depo-Medrol injection: 04/04/2022Metabolic acidosis (Acute) Essential hypertension (Acute) CKD (chronic kidney disease) stage 4, GFR 15-29 ml/min (Chronic) Lamellar macular hole of both eyes (Acute 10/25/21) Type 1 diabetes, controlled, with neuropathy (Chronic ~05/2017) Adult onset, diagnosed 05/[address] [facility] [address] Douglas--recommend GLP1 Personal goal A1C <7%Secondary hyperparathyroidism (Acute ~05/2021) [place] [facility] [place] Elevated PSA (Acute) Family history of prostate cancer (Chronic) FHyperlipidemia (Chronic) Hypertension (Chronic) RX Lisinopril (stopped due to creatinine) Medical History? Alcohol intoxication (~12/02/21) Bilateral carpal tunnel syndrome Carpal tunnel syndrome on both sides +[facility] [employer] [facility] 05/08/2020hronic gingivitis, plaque induced DentistHistory of alcohol use disorder since 1989 with intermittent sobrietyHistory of elevated PSA Per [facility]--01/14/2019 6.41, 04/28/2018 6.32; +Fam hx prostate cancer in FHistory of opioid abuse s/p surgeries; visiting brother 08/2021 ([facility] admission)History of renal cell cancer s/p nephrectomyHyperkalemia (~05/2021) [place] [facility] [place]rology[place]ion of bone of left forearm proximal radius lesionOsteoarthritis of elbows, bilateral Polyneuropathy associated with underlying disease DMSolitary left kidney [facility] [place] 07/2020[place] s/p nephrectomy on R 2004 renal cell cancer; partial nephrectomy on L 2007Tubular adenoma of colon 08/2018 colonoscopy [facility]; recall 5yType 1 diabetes mellitus without complications Surgical History? H/O arthroscopy of knee Remotely--both knees at some point; he cannot recall what, but thinks meniscalH/O partial nephrectomy (~04/2007) leftH/O skin graft [facility] [place] Scrotal Abscess 07/15/22 Skin Graft with Bolster removal History of nephrectomy, right (~03/2004) Renal cell cancer Social History/Home Situation: Pt states that he is limited in regards to his functional (I). He notes that he does have HH come in to (A) him at times but he is (R) hand dominant and without use of his (R) UE he is not able to perform his ADLs like he could at his baseline. Equipment owned/DME: unable to assess SUBJECTIVE: Pt was sitting on side of his bed when OT arrived. He states that he was looking forward to OT consult so that his (R) UE can be assessed. He notes that he is (R) hand dominant and has increased pain in his digits when attempting to flex his fingers. He notes that without his (R) UE he has a decline in his functional (I). Visual assessment and pts (R) UE is very swollen. OBJECTIVE: General Observation: Pleasant, Lymphedema in (L) UE, increased edema in (R), decreased AROM of pts digits into flexion. Mental Status: A&Ox3 Pain: c/o pain in (R) digits with functional use ROM: RUE limited AROM of digits at the MP/IP joints, wrist WNL, elbw WFL L UE Limited AROM d/t edema in the (L) UE inlcuding the elbow and wrist STRENGTH: RUE Not able to functionally make a fist no cio strength tested d/t this. LUE 4-/5 throughout FUNCTIONAL MOBILITY/ADLS: Manual Therapy [id number]: OT assessed pts (R) UE with limited ROM And edema. AP mobs performed the radial ulnar joint, carpal row and digits at the MP, IP and DIP joints throughout with fair-good mobility achieved. OT then performed passive stretching to his (R) UE for facilitated mobility. Overall pt tolerated this well. OT then taped the dorsal aspect of pts (R) digits with rock tape with 50-75% tension for edema mangement. OT will monitor this and progress accordingly. OT recommendations on pts board in room consist of- 1. Wear tape for 24 hours which OT will remove on 09/13 2. Keep (R) UE on pillow or above heart while sitting in bed 3. Ice as needed for edema 4. bring arm above head 1x per hour and make fist 20x EATING seated on side of the bed (I) BALANCE: Static sitting Good Dynamic Sitting Good SPECIAL TESTS: Daily Activity Limitations Standardized Measure [facility] AM PAC ?6 clicks? Daily Activity Inpatient Short Form: Raw score:16 INFORMED CONSENT/EDUCATION: Pt instructed in purpose of OT Consult and plan of care. ASSESSMENT: Patient is a 62-year-old male referred to occupational therapy services with diagnosis of anemia, hypomagnesemia, leukocytosis, hyponatremia, increased anion gap metabloic acidosis, acute dehydration, general weakness, gallstones, kidney lesion, microcytic anemia, essential HTN. . Patient presents with clinical signs and symptoms consistent with dx, as demonstrated by the following impairment level findings/functional limitations: Impairments in ADL/IADL and lesiure activities, decreased functional flexion of pts digits, decreased gross and fine motor control of (R) UE, decreased functional mobility required for ADL performance, increased edema limiting pts ROM, decreased functional use of (R) UE, impairments in digit flexion. Patient is assessed as a Moderate 19784 complexity based on the following: History: see above Examination: see functional limitations as noted above Presentation: evolving Decision Making: moderate complexity GOALS Goals x1 week 1. (R) hand- pt will be able to hold items in his (R) hand with functional grasp without pain 2. Dressing- seated (I) 3. Bathing- seated (I) 4. Toileting- on commode (I) 5. Eating- (I) with (R) UE PLAN OF CARE/TREATMENT PLAN: 1x/day, 3-5 days/ week x 1week Initiate Occupational Therapy Services for bathing, dressing, grooming, toileting, eating, transfer training. DISCHARGE RECOMMENDATIONS OT recommends SNF, if pt is not accepted to SNF- OT recommends that he return home with HH vs. Outpatient referral for his (R) UE. TREATMENT TIME/MINUTES/CODES 47040, [id number], 30 minutes [employer] [facility] [place], [place]
[2022-09-12] MEDS: metroNIDAZOLE 500 MG/100 ML BAG 100 MG IVPB ×2 (09:28→17:00)
[2022-09-12] MEDS: MAGNESIUM SULFATE 4 GM/100 ML BAG IVPB (09:28)
[2022-09-12] MEDS: Lactobacillus Acidophilus CAP 1 CAP PO ×2 (09:28→20:25)
[2022-09-12] MEDS: Folic Acid 1 MG TAB PO (09:30)
[2022-09-12] MEDS: Acetaminophen 325 MG TAB PO ×2 (10:52→20:25)
--- NOTE | 2022-09-12 10:52 | NUR.NOTE ---
Nursing Note: Accessed pt chart to determine number of EKG orders. Duplicate order cancelled.
--- NOTE | 2022-09-12 13:08 | PT.INTREAT ---
Date of service: 09/12/22 Time of Service: 12:44 PT Notes Visit Reasons: General weakness,Anion gap acidosis,Dehydration,CK Physical Therapy Inpatient Treatment Note Date: 09/12/2022 Precautions: Fall. Standard. Activity as tolerated. Subjective: More cooperative today, motivated to get his strength back and to work with PT. Complains of pain in B knees with each sit to stand. Agreeable to going to a short-term rehab facility to continue to get his strength back. Objective: General Observation: Seated on bedside chair.? Mental Status: Alert and oriented as to person, place, time, and purpose. Able to pay attention, focus, and respond appropriately. Pain: 4-5/10 in in B knees and in R hand Vital Signs: Closely monitored by nursing staff Bed Mobility/Transfers: Sit to stand from bedside recliner moderate assist using FWW, cues provided to use both hands for support Stand to sit minimal assist, cues provided to use both hands for support Wheelchair to bed minimal assist using FWW Sit to supine minimal assist to B LE due to fatigue after walking Scooting up in bed stand by assist, able to use B LE (bent knees) to puch self up in bed Gait: Instructed patient with level surface ambulation of 15 feet + 20 feet + 35 feet requiring minimal assist and use of FWW, wheelchair follow provided. In the afternoon, patient managed to walk 100 feet without sitting down but with 2 brief (30-second) standing rests.? Priti decreased. Step height decreased. Step length decreased.? Complained of pain in B knees with walking.? THERA EX: Worked on chair push ups whiles seated on bedside chair to improve transfer skills.? Instcructed on seated marches? x10 and LAQs x 10. Balance: Static Sitting: Normal Dynamic Sitting: Normal Static Standing: Fair Dynamic Standing: Fair ASSESSMENT: Activity tolerance beginning to improve. Motivated to regain his strength back. Be sure to premedicate for pain to minimize B knee pain during sit<>stand movement transitions. B drill sharpener and grasp weak with R more affected than L.? Patient with B CTS,? elbow OA,? and diabetic polyneuropathy contributing to this B hand weakness.? Will benefit from OT consult,? spoke with Nurse Shaw about benefit of said referral.? Dylan requires the use of FWW for all transfer and ambulation task performance as well the assistance of one person and wheelchair follow for safety.? His goal is to regain his independent ability with ambulation without any device per prior level of function.? Unable to fully use R hand for walker handling due to pain and swelling.? Provided assistance with use of commode and aftercare twice today for bowel movement. Will benefit from OT evaluation of R hand to regain full use of R hand. DISCHARGE RECOMMENDATIONS: [] ? Home with no services [] [] ? Home with services [] ? Home with outpatient PT [] [X] ? SNF for continued rehabilitation. Will benefit from short-term rehab to maximize strength, balance, and mobility gains in anticipation of return to home alone. [] ? [facility] [] [] ? SNF versus LTC based on ability to participate and progress [] TREATMENT CODE/TIME: Session 1--42311 x 25 minutes beginning at 10:47 AM. Session 2--[id number] x 24 minutes beginning at 12:44 PM.
[2022-09-12] MEDS: Psyllium PKT 1 EACH PO (13:55)
--- NOTE | 2022-09-12 13:58 | W.PM.PROGNOT ---
Date of Service Date of service: 09/12/22 Time of Service: 13:58 Assessment and Plan Assessment and plan (1) General weakness: Start date: 09/10/22 Status: Acute Assessment and plan: This s a 62-year-old alcoholic gentleman who drinks about 1/2 gallon of vodka daily in poor condition with poorly controlled medical disease processes. He is generally weak from multiple etiologies and deconditioned with physical therapy recently stated that he should be using a walker. The patient feels that he should be rehabilitated. His electrolyte abnormalities and chronic alcohol use certainly are increasing his weakness. He was admitted for IV hydration hopefully to reverse his metabolic acidosis with close monitoring for alcohol withdrawal and more aggressive treatment of his C. difficile colitis adding Flagyl IV to oral Dificid. He was discharged just hours before this admission to continue dificid for his C.Difficile. Dificid was not covered by his insurance and would have required a prior auth. so he was prescribed vancomyin for home. He does have leukocytosis which will be trended watching for other sources of infection. Long-term he may do well with rehabilitation but needs to stop drinking alcohol and take care of himself at home, living alone. He is a full code. acute lactic acidosis has resolved. Patient now eating and drinking. However still remains prerenal azotemia w/ BUN 31 and creatinine 1.9; he still has hypokalemia and hypomagnesemia which I am correcting both oral and parenteral. I will continue iv fluids for one more day but have decreased the rate and changed the composition to D5LR w/ KCl. continue to monitor U.O. and stools and labs. Patient now on Dificid as well as oral vancomycin and iv flagyl. If his stools continue to improve and his electrolytes remain stable, he could be dc soon to SNF and complete outpatient treatment w/ 10 days of Dificid which our pharmacy will supply for him. (2) Acute dehydration: Status: Acute Assessment and plan: improving. continue D5LR w/ KCl at reduced rate of 75 mL/hr for 24h and repeat BMP in the moprning. (3) CKD (chronic kidney disease) stage 4, GFR 15-29 ml/min: Start date: 09/10/22 Status: Chronic Assessment and plan: Slightly exacerbated with patient to be trended with lab and avoid nephrotoxic medications. Lisinopril has been held. He has status post right nephrectomy for renal cell carcinoma. (4) Hyponatremia: Start date: 09/10/22 Status: Acute Assessment and plan: Most likely associated with chronic alcohol use. IV normal saline aggressively watching for fluid overload. Long-term alcohol cessation would be helpful. (5) Hypomagnesemia: Start date: 09/10/22 Status: Acute Assessment and plan: Recurrent depletion with alcohol use. parenteral and oral replacements being given, monitor response. 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 During the admission from [facility] 09/10/22 he endorsed desire to remain sober. He also now does discuss possible rehabilitation and cessation at hospitalizations but never followed through. We had requested a monomer recovery operator consult but they did not visit with the patient d/t his C.Diff + status. . (8) Type 1 diabetes mellitus without complications: Assessment and plan: Hold outpatient medical therapy with glucometer measurements and moderate sliding scale for acting insulin for coverage. Adjust as needed. Recent hemoglobin A1c was below 8. (9) Leukocytosis (leucocytosis): Status: Acute Assessment and plan: improving. likely d/t C diff infection (10) Colitis due to Clostridium difficile: Start date: 09/09/22 Status: Acute Assessment and plan: C. difficile positive with recent hospitalization. Cont. Dificid p.o. and IV Flagyl and oral vancomycin. (11) Anemia: Status: Chronic Assessment and plan: Most likely secondary to chronic disease and poor nutrition. Stable. (12) Discharge planning issues: Status: Acute Assessment and plan: Referrals being sent to SNFs. Subjective Subjective Interval history since last seen: Patient states that his abdomen is feeling better. No nausea or vomiting. He is still having loose BM but a little more form according to him. Exam Narrative Exam Narrative: alert and oriented Lungs: clear Heart. RRR, no m,r,g Abdomen: soft, nondistended, normal bowel sounds, no tenderness w/ palpation, no guarding Extremities: no edema of his legs or feet; knees w/ chronic OA; upper extremities: right arm w/ iv in antecubital, some bruising over arms (both), left arm nontender and does not appear edematous, normal radial pulses Objective Last Vital Signs Temp 37.4 C 09/12/22 11:24 Pulse 119 H 09/12/22 11:24 Resp 18 09/12/22 11:24 BP 134/87 09/12/22 11:24 Pulse Ox 97 09/12/22 11:24 Laboratory Results - last 24 hr 09/12/22 09/12/22 06:55 06:55 WBC 13.53 H RBC 3.12 L Hgb 8.2 L Hct 25.7 L MCV 82 MCH 26.3 L MCHC 31.9 L RDW 17.6 H Plt Count 312 MPV 9.3 Immature Gran % 1.0 Neutrophils % 75.9 Lymphocytes % 10.8 Monocytes % 9.5 Eosinophils % 2.4 Basophils % 0.4 Nucleated RBC % 0.0 Absolute Neutrophils 10.27 H Absolute Lymphocytes 1.46 Absolute Monocytes 1.29 H Absolute Eosinophils 0.32 Absolute Basophils 0.05 Sodium 134 L Potassium 3.4 L Chloride 104 Carbon Dioxide 19.2 L Anion Gap 10.8 BUN 31 H Creatinine 1.9 H Est GFR (CKD-EPI 2020) 39.15 Glucose 166 H Calcium 8.6 Magnesium 1.4 L PAWSS Have you Been Recently Intoxicated or Drunk Within the Last 30 days?: Yes Have you Ever Experienced Previous Episodes of Alcohol Withdrawal?: Yes Have you ever Experienced Withdrawal Seizures?: No Have you ever Experienced Delirium Tremens(DT)s?: No Have you ever undergone Alcohol Rehabilitation Treatment (i.e, inpt ot outpatient treatment programs)?: No Have you ever Experienced Blackouts?: Yes Have you ever Combined Alcohol with other Downers within the last 90 days?: No Have you ever Combined Alcohol with any other Substance of Abuse during the last 90 days?: No Positive Blood Alcohol level on Presentation? [PCS.BAL]: Yes Evidence of Increased Autonomic Activity (i.e. HR>120, tremor, sweating, agitation, nausea)?: Yes Result: 5 Time Spent with Patient Time Spent with Patient: 35-49 minutes Time was spent: preparing to see the patient(eg.review tests), ordering medications,tests, procedures, referring, communicating with other health care information associate, indepentently interpreting results, counseling the patient and care coordination
[2022-09-12 14:04] LABS: HCT 27.2 % (40.0-50.0); HGB 8.6 g/dL (13.5-17.5)
--- NOTE | 2022-09-12 17:15 | PDOC.CMPRO ---
Date of service: 09/12/22 Time of Service: 17:15 Care Management Progress Note Progress Note Text Progress Note Text: S/O: Remains inpatient, PT recommending SNF; referral faxed to [facility]. Mina has [employer] which is a deterrent to some SNFs. CM continues to follow. A: 62 year old male re-admitted to [facility] 09/11/22 for generalized weakness, CKD, dehydration, anion gap acidosis P: Mina is making strides physically and is motivated to progress in strength and mobility. SNF referral pending, anticipate [facility] if bed offer is not received. CM continues to follow.
[2022-09-12 17:59] LABS: Potassium 4.1 mmol/L (3.5-5.1)
[2022-09-12 18:01] LABS: Magnesium 2.1 mg/dL (1.8-2.4)
[2022-09-12] MEDS: Gabapentin 300 MG CAP PO (22:38)
[2022-09-12] MEDS: Atorvastatin 20 MG TAB PO (22:38)
[2022-09-12] MEDS: Metoprolol CR 25 MG TABCR PO (22:38)
[2022-09-12] MEDS: Insulin Glargine 300 UNITS/3 ML PEN 44 UNITS SC (22:39)
[2022-09-13] VITALS (14 sets, daily range): BP systolic 141–177; BP diastolic 76–99; PULSE 105–146; RESP 16–20; TEMP 36.4–38.4; O2SAT 95–97
[2022-09-13] MEDS: metroNIDAZOLE 500 MG/100 ML BAG 100 MG IVPB ×3 (01:35→19:59)
[2022-09-13] MEDS: Vancomycin 125 MG CAP ×2 (01:40→01:41)
[2022-09-13 06:47] LABS: Abs Immature Grans 0.33 10^3/uL (0.0-0.06); Absolute Basophil Count 0.07 10^3/uL (0.0-0.2); Absolute Eosinophil Count 0.36 10^3/uL (0.0-0.7); Absolute Lymphocyte Count 1.58 10^3/uL (1.2-3.4); Absolute Monocyte Count 1.16 10^3/uL (0.1-0.8); Absolute Neutrophil Count 7.21 10^3/uL (1.2-6.7); Basophils % 0.7; Eosinophils % 3.4; HCT 25.5 % (40.0-50.0); HGB 8.2 g/dL (13.5-17.5); Immature Grans % 3.1; Lymphocytes % 14.8; MCH 26.1 pg (27.0-33.0); MCHC 32.2 % (32.0-36.0); MCV 81 fL (80-95); MPV 9.8 fL (8.0-11.0); Monocytes % 10.8; Neutrophils % 67.2; Platelet Count 350 10^3/uL (130-400); RBC 3.14 10^6/uL (4.36-5.78); RDW 17.7 % (11.8-14.1); RDW-SD 52.2 fL; WBC 10.71 10^3/uL (4.4-10.8)
[2022-09-13 07:05] LABS: Anion Gap 11.4 mmol/L (3-11); BUN 26 mg/dL (7-18); CO2 20.6 mmol/L (21.0-32.0); CREATININE 1.7 mg/dL (0.70-1.30); Chloride 105 mmol/L (98-107); Estimated GFR 44.74 (mL/min/1.73m2); Glucose 228 mg/dL (74-106); Magnesium 1.7 mg/dL (1.8-2.4); Potassium 3.5 mmol/L (3.5-5.1); Sodium 137 mmol/L (136-145)
--- NOTE | 2022-09-13 08:28 | OTTR_ITS ---
Occupational Therapy Notes Occupational Therapy Inpatient Treatment Note Date: 09/13/22 PRECAUTIONS: Fall, Standard, Full SUBJECTIVE: Pt was sitting in chair when OT arrived. He states that he is still really stiff and sore. He notes that he was able to keep the tape on and has been keeping his hand elevated. OBJECTIVE: PAIN:c/o of pain in MP joints and into the dorsal wrist and hand. Manual Therapy [id number]: OT assessed pts edema which remains remarkable at this time. OT performed AP mobs at pts digits and wrist which was sore at the MPs and wrist. Then OT educated and trained pt in contrast baths and he performed this this morning which he tolerated well. Functionally he had improved mobility of his digits post application. OT and pt discuss the importance of performing this throughout the weekend and OT will monitor pts response and progress accordingly. ASSESSMENT/PLAN: Pt tolerated contrast baths well. Updated plan is on pts board on what he should be doing daily for edema management. He understands this and is going to speak with nursing to (A) him with set up/clean up. This is the updated plan below- * Hand should be elevated on pillow or above heart at all times * Contrast baths should be performed 2x per day morning and night * Ice as needed * Hand above head every hour 20x * Retrograde massage to help with comfort and edema in digits with elbow supported on table and massaging towards elbow from distal fingers * ROM of individual digits to be performed every hour TREATMENT CODES/TIME: [id number], 30 minutes Tanya Baron OTR/[facility] [place], [place]
[2022-09-13] MEDS: Insulin Aspart 300 UNITS/3 ML PEN SC ×5 (09:39→22:19)
[2022-09-13] MEDS: Magnesium Oxide 400 MG TAB PO ×2 (09:39→19:48)
[2022-09-13] MEDS: Multivitamin TAB 1 TAB PO (09:40)
[2022-09-13] MEDS: Thiamine 100 MG TAB PO (09:40)
[2022-09-13] MEDS: Enoxaparin 40 MG/0.4 ML SYR SC (09:40)
[2022-09-13] MEDS: Folic Acid 1 MG TAB PO (09:41)
[2022-09-13] MEDS: Fidaxomicin 200 MG TAB PO ×2 (09:41→19:47)
[2022-09-13] MEDS: Lactobacillus Acidophilus CAP 1 CAP PO ×2 (09:41→19:47)
[2022-09-13] MEDS: DULoxetine 30 MG CAP 60 MG PO (09:41)
[2022-09-13] MEDS: Psyllium PKT 1 EACH PO (09:41)
[2022-09-13] MEDS: Diclofenac 1% Gel 100 GM TUBE TP ×4 (09:41→19:44)
--- NOTE | 2022-09-13 10:43 | W.PM.PROGNOT ---
Date of Service Date of service: 09/13/22 Time of Service: 10:43 Assessment and Plan Assessment and plan (1) General weakness: Start date: 09/10/22 Status: Acute Assessment and plan: This s a 62-year-old alcoholic gentleman who drinks about 1/2 gallon of vodka daily in poor condition with poorly controlled medical disease processes. He is generally weak from multiple etiologies and deconditioned with physical therapy recently stated that he should be using a walker. The patient feels that he should be rehabilitated. His electrolyte abnormalities and chronic alcohol use certainly are increasing his weakness. He was admitted for IV hydration hopefully to reverse his metabolic acidosis with close monitoring for alcohol withdrawal and more aggressive treatment of his C. difficile colitis adding Flagyl IV to oral Dificid. He was discharged just hours before this admission to continue dificid for his C.Difficile. Dificid was not covered by his insurance and would have required a prior auth. so he was prescribed vancomyin for home. He does have leukocytosis which will be trended watching for other sources of infection. Long-term he may do well with rehabilitation but needs to stop drinking alcohol and take care of himself at home, living alone. He is a full code. Patient's acute lactic acidosis resolved with IV fluid hydration. He has not had any nausea or vomiting and diarrhea has improved. At this point we can discontinue IV fluids. I think we can consolidate his treatment for his C. difficile diarrhea to just Dificid. I discontinued the IV Flagyl but continue the Dificid. Professional time spent interviewing and examining patient, discussion of goals of care with hospital team (care management, nursing and consulting professionals) was 30 minutes. (2) Acute dehydration: Status: Resolved Assessment and plan: Resolved. DC IV's. (3) CKD (chronic kidney disease) stage 4, GFR 15-29 ml/min: Start date: 09/10/22 Status: Chronic Assessment and plan: Patient's ALEJANDRO has resolved he is now down to his baseline BUN and creatinine of 26 and 1.7 respectively. (4) Hyponatremia: Start date: 09/10/22 Status: Acute Assessment and plan: Most likely associated with chronic alcohol use. Resolved serum sodium is 137 now. As he is taken p.o. adequately we can stop IV. (5) Hypomagnesemia: Start date: 09/10/22 Status: Acute Assessment and plan: Recurrent depletion with alcohol use. Repeat magnesium down to 1.7 this morning. Continue oral supplementation. (6) Alcohol use disorder: Status: Chronic Assessment and plan: Patient needs stop drinking long-term and prognosis poor for change. During the admission from 78 tp 09/10/22 he endorsed desire to remain sober. He also now does discuss possible rehabilitation and cessation at hospitalizations but never followed through. We had requested a control and recovery special tactics consult but they did not visit with the patient d/t his C.Diff + status. . (7) Type 1 diabetes mellitus without complications: Assessment and plan: Sugars run in the mid 200s. Have adjusted his sliding scale to NovoLog insulin resistant scale added carbohydrate coverage and adjusted his nightly Lantus. (8) Leukocytosis (leucocytosis): Status: Resolved Assessment and plan: Secondary to C. difficile infection. Leukocytosis has resolved. White cell count now 10. (9) Colitis due to Clostridium difficile: Start date: 09/09/22 Status: Acute Assessment and plan: C. difficile positive with recent hospitalization. Cont. Dificid p.o. and IV Flagyl and oral vancomycin however at this point I think we could probably transition over to just oral Dificid as he is improved significantly. He will need to complete a 10-day course of Dificid upon discharge and we will need to ensure the pharmacy dispenses his full treatment course. (10) Anemia: Status: Chronic Assessment and plan: Most likely secondary to chronic disease and poor nutrition. Stable. (11) Discharge planning issues: Status: Acute Assessment and plan: Referrals being sent to SNFs. Subjective Subjective Interval history since last seen: Patient states that his BM this morning was semiformed. No abdominal pains, nausea or vomting. He feels that he did well w/ PT but notes that his knees hurt and he did not get medicated w/ the Ultram (even though I ordered this yesterday at 50 mg po q4hr prn; apparently nursing is not offering it to him or he did not ask for it prior to PT). He feels that he needs to go to SNF for therapy prior to returning home. I told him that depends on P.T. assessment of his abilities. I think he is getting closer to discharge. If his BM are down to 2 or 3 BM per day and they are formed or semiformed then he can handle this as outpatient as long as our pharmacy makes sure that he has the full course of Dificid to take when he goes home. Exam Narrative Exam Narrative: Toes alert and oriented sitting up in his chair watching TV. He denies any discomfort. No abdominal pain no nausea or vomiting. Lungs are clear to auscultation Heart is regular rate and rhythm without murmur rub or gallop Abdomen soft nontender nondistended normal bowel sounds Lower extremities without peripheral cyanosis or edema. No visible swelling or induration of his knees. He does have chronic osteoarthritic changes of his knees. Objective Last Vital Signs Temp 36.4 C L 09/13/22 07:58 Pulse 108 H 09/13/22 07:58 Resp 16 09/13/22 07:58 BP 160/99 H 09/13/22 07:58 Pulse Ox 96 09/13/22 07:58 Laboratory Results - last 24 hr 09/12/22 09/12/22 09/12/22 13:55 16:50 16:50 WBC RBC Hgb 8.6 L Hct 27.2 L MCV MCH MCHC RDW Plt Count MPV Immature Gran % Neutrophils % Lymphocytes % Monocytes % Eosinophils % Basophils % Nucleated RBC % Absolute Neutrophils Absolute Lymphocytes Absolute Monocytes Absolute Eosinophils Absolute Basophils Sodium Potassium 4.1 Chloride Carbon Dioxide Anion Gap BUN Creatinine Est GFR (CKD-EPI 2020) Glucose Calcium Magnesium 2.1 09/13/22 09/13/22 09/13/22 06:25 06:25 06:25 WBC 10.71 RBC 3.14 L Hgb 8.2 L Hct 25.5 L MCV 81 MCH 26.1 L MCHC 32.2 RDW 17.7 H Plt Count 350 MPV 9.8 Immature Gran % 3.1 Neutrophils % 67.2 Lymphocytes % 14.8 Monocytes % 10.8 Eosinophils % 3.4 Basophils % 0.7 Nucleated RBC % 0.0 Absolute Neutrophils 7.21 H Absolute Lymphocytes 1.58 Absolute Monocytes 1.16 H Absolute Eosinophils 0.36 Absolute Basophils 0.07 Sodium 137 Potassium 3.5 Chloride 105 Carbon Dioxide 20.6 L Anion Gap 11.4 H BUN 26 H Creatinine 1.7 H Est GFR (CKD-EPI 2020) 44.74 Glucose 228 H Calcium 9.0 Magnesium 1.7 L PAWSS Have you Been Recently Intoxicated or Drunk Within the Last 30 days?: Yes Have you Ever Experienced Previous Episodes of Alcohol Withdrawal?: Yes Have you ever Experienced Withdrawal Seizures?: No Have you ever Experienced Delirium Tremens(DT)s?: No Have you ever undergone Alcohol Rehabilitation Treatment (i.e, inpt ot outpatient treatment programs)?: No Have you ever Experienced Blackouts?: Yes Have you ever Combined Alcohol with other Downers within the last 90 days?: No Have you ever Combined Alcohol with any other Substance of Abuse during the last 90 days?: No Positive Blood Alcohol level on Presentation? [PCS.BAL]: Yes Evidence of Increased Autonomic Activity (i.e. HR>120, tremor, sweating, agitation, nausea)?: Yes Result: 5 Time Spent with Patient Time Spent with Patient: 25-34 minutes Time was spent: preparing to see the patient(eg.review tests), ordering medications,tests, procedures, referring, communicating with other health nursing care attendant, indepentently interpreting results, counseling the patient and care coordination
[2022-09-13] MEDS: Potassium Chloride 10 MEQ CAPCR 20 MEQ PO (11:26)
[2022-09-13] MEDS: traMADol 50 MG TAB PO ×3 (11:26→19:46)
--- NOTE | 2022-09-13 15:15 | RT.EKG_ITS ---
APPROVED REPORT Exam: Resting ECG Reason for Exam: tachycardia Patient Location: I HR:139 bpm ECG Measurements Heart Rate 139 AXIS NE 139 P 93 QRSd 57 QRS 46 QT 311 T -59 QTc 473 Conclusion Poor quality data, interpretation may be affected Sinus tachycardia...rate> 99 Late transition
--- NOTE | 2022-09-13 15:30 | DI.RAD_ITS ---
Exam(s) XR PORTABLE CHEST AP EXAM: XR PORTABLE CHEST AP CLINICAL HISTORY: fever. TECHNIQUE: 2D digital imaging was performed. COMPARISON: CR,XR XR CHEST 1V IN DI DEPT from 09/10/2022 FINDINGS: Single AP portable view. Heart size is upper normal. The mediastinum is not widened. Lungs are clear. No infiltrates nor obvious pleural effusions. IMPRESSION: No acute pulmonary findings on this single AP portable view of the chest. DATA REPOSITORY: RADIATION DOSE DELIVERED:
--- NOTE | 2022-09-13 15:38 | PT.INTREAT ---
PT Notes Visit Reasons: General weakness,Anion gap acidosis,Dehydration,CK 09/13/22 Precautions: Fall. Standard. Activity as tolerated. Therapeutic procedures [id number] 25mins: Instruction in therapeutic exercises to develop strength and endurance, range of motion and flexibility. HEP instruction and review: Seated resisted scapular retraction w/ orange theraband, resisted shoulder external rotation, resisted overhead adduction w/ orange theraband. Provided skilled instruction in proper exercise performance: Provided skilled manual cues to facilitate proper muscle recruitment and/or movement pattern: Treatment initiated seated w/ resisted seated hip flexion w/ 3# ankle weights 1x10, resisted seated knee extension w/ 3# ankle weights 1x10, resisted seated hip abduction w/ 3# ankle weights 1x10, resisted seated hip adduction w/ 3# ankle weights 1x10, resisted seated hip abduction w/ orange theraband 2x10, resisted seated unilateral hip adduction w/ orange theraband 1x10, bicep curls in neutral w/ 3# DB 1x10, pronation/supination w/ 3# DB 1x10. Assessment: Pt refused gait training this afternoon due to pain in knees from this morning's session; will attempt gait training again tomorrow. Tolerated seated activities well; orange theraband left w/ pt for HEP. Plan: Continue w/ POC 2:55pm - 3:20pm
[2022-09-13] MEDS: Acetaminophen 325 MG TAB PO ×3 (16:06→19:48)
[2022-09-13 16:29] LABS: Lactate 0.9 mmol/L (0.6-1.4)
--- NOTE | 2022-09-13 16:30 | PDOC.CMPRO ---
Date of service: 09/13/22 Time of Service: 16:30 Care Management Progress Note Progress Note Text Progress Note Text: S/O: Remains inpatient, PT recommending SNF; referral faxed to [facility]; still pending. PT reports Mina is very motivated to strengthen and progress. CM continues to follow. A: 62 year old male re-admitted to [facility] 09/11/22 for generalized weakness, CKD, dehydration, anion gap acidosis P: Mina is making strides physically and is motivated to progress in strength and mobility. SNF referral pending, per MD, may return home if he continues to make great strides over the weekend. CM continues to follow.?
[2022-09-13 16:31] LABS: Abs Immature Grans 0.32 10^3/uL (0.0-0.06); Absolute Basophil Count 0.07 10^3/uL (0.0-0.2); Absolute Lymphocyte Count 1.81 10^3/uL (1.2-3.4); Absolute Monocyte Count 1.33 10^3/uL (0.1-0.8); Basophils % 0.5; HCT 27.9 % (40.0-50.0); Immature Grans % 2.2; Lymphocytes % 12.6; MCH 26.1 pg (27.0-33.0); MCHC 32.3 % (32.0-36.0); MCV 81 fL (80-95); MPV 9.6 fL (8.0-11.0); Monocytes % 9.3; Neutrophils % 73.4; Platelet Count 409 10^3/uL (130-400); RBC 3.45 10^6/uL (4.36-5.78); RDW 17.5 % (11.8-14.1); RDW-SD 52.2 fL; WBC 14.35 10^3/uL (4.4-10.8)
[2022-09-13 16:32] LABS: Absolute Eosinophil Count 0.29 10^3/uL (0.0-0.7); Absolute Neutrophil Count 10.53 10^3/uL (1.2-6.7)
[2022-09-13] MEDS: Lactated Ringers 500 ML IV (16:38)
[2022-09-13 16:47] LABS: C-Reactive Protein 18.28 mg/dL (0.0-0.3)
[2022-09-13 16:51] LABS: ALT 31 U/L (16-63); AST 32 U/L (15-37); Albumin 2.3 g/dL (3.4-5.0); Alkaline Phosphatase 85 U/L (46-116); Anion Gap 12.9 mmol/L (3-11); BUN 23 mg/dL (7-18); Bilirubin, Total 0.3 mg/dL (0.2-1.0); CO2 19.1 mmol/L (21.0-32.0); CREATININE 1.7 mg/dL (0.70-1.30); Calcium 9.1 mg/dL (8.5-10.1); Chloride 100 mmol/L (98-107); Estimated GFR 44.74 (mL/min/1.73m2); Glucose 220 mg/dL (74-106); Potassium 3.7 mmol/L (3.5-5.1); Sodium 132 mmol/L (136-145); Total Protein 7.4 g/dL (6.4-8.2)
[2022-09-13 17:04] LABS: D-Dimer 6602 ng/mlFEU (<500)
[2022-09-13 17:07] LABS: Procalcitonin 0.5 ng/mL
--- NOTE | 2022-09-13 17:15 | DI.CT_ITS ---
Exam(s) CT CHEST PE CTA EXAM: CT CHEST PE CTA CLINICAL HISTORY: fever, dyspnea, elevated d-dimer; r/o PE. TECHNIQUE: Imaging Protocol: CT angiography of the chest was performed using pulmonary embolus lidia col. Multi planar reconstructions were performed. CONTRAST MATERIAL: Intravenous: Omnipaque 350 Contrast volume: 100 cc COMPARISON: CT CT ABDOMEN PELVIS W from 09/13/2022 FINDINGS: CHEST: PULMONARY ARTERIES: There are no obvious intraluminal filling defects to suggest acute pulmonary embo li. LUNGS: There are no infiltrates nor evidence of pulmonary infarction.. There are no pleural effusions . MEDIASTINUM: There is no hilar nor mediastinal adenopathy. Visualized thyroid unremarkable. CARDIAC: Heart size is upper normal. There is no pericardial effusion.Caliber of the thoracic aorta is within normal limits. There is no significant shift of the interventricular septum. PARTIALLY VISUALIZED UPPERMOST ABDOMEN: Cholelithiasis. Previous right nephrectomy and right adrenal ectomy. OSSEOUS: No significant osseous lesions.No fractures.. IMPRESSION: 1. No evidence of obvious acute pulmonary emboli. No evidence of pulmonary infarction.No pleural eff usions. 2. No intrathoracic adenopathy. RADIATION DOSE DELIVERED: Total DLP DATA REPOSITORY: All CT scans at this facility are submitted to the National Radiology Data Registry (NRDR) Dose Index Registry (DIR) with the [employer] (ACR). RADIATION OPTIMIZATION: All CT scans at this facility use at least one of these dose optimization te chniques: automated exposure control; mA and/or kV adjustment per patient size (includes targeted exa ms where dose is matched to clinical indication); or iterative reconstruction.
--- NOTE | 2022-09-13 17:20 | DI.CT_ITS ---
Exam(s) CT ABDOMEN PELVIS W EXAM: CT ABDOMEN PELVIS W CLINICAL HISTORY: C difficile colitis, fever. TECHNIQUE: Imaging Protocol: Axial computed tomography images with coronal and sagittal reformatted images were created and reviewed CONTRAST MATERIAL: Intravenous: Omnipaque-350 100cc Oral: None COMPARISON: CT CT ABDOMEN PELVIS WO from 08/15/2022 FINDINGS: VISUALIZED LUNG BASES: No nodules nor pleural effusions evident. ABDOMEN: There is no ascites. LIVER: There are no focal hepatic lesions evident. No dilated intrahepatic ducts. GALLBLADDER/BILIARY: Cholelithiasis again noted. No gallbladder wall edema nor pericholecystic fluid . CBD is not dilated. PANCREAS: No evidence of pancreatic mass nor dilatation of the pancreatic duct. SPLEEN: Spleen is not enlarged. No obvious intrasplenic lesions. Splenic and portal veins are paten t. ADRENALS: Left adrenal gland unremarkable. Right adrenal gland is surgically absent. KIDNEYS:Benign cyst is again noted in the posterior aspect of the left kidney measuring approximately 2.4 by 1.7 cm. Does not require further workup. No other left kidney findings. No hydronephrosis. The right kidney is again noted be surgically absent. Small densities in the renal bed are unchang ed. No gross lymphadenopathy.. ABDOMINAL AORTA: Abdominal aorta is not enlarged. LYMPH NODES:No prominent swrssacgeiftunc-fhxi-[id number] adenopathy. Para-aortic densities appear vascul ar collaterals. ABDOMINAL WALL: No evidence of significant anterior abdominal wall nor inguinal hernia. GI: Redundant sigmoid.. No diverticulosis nor diverticulitis evident. PELVIS: GI: The appendix contains calcified material. Appendix diameter is 7-8 mm. There is no periappendic eal streaking.No evidence of sigmoid diverticulitis. LYMPH NODES: There is no intrapelvic nor inguinal adenopathy. REPRODUCTIVE: Mildly enlarged prostate gland. URINARY BLADDER: Wall of the urinary bladder is relatively uniformly thickened. Bladder is not diste nded. OSSEOUS: No fractures and no significant osseous lesions. Chronic disc space narrowing L5-S1 level noted. IMPRESSION: 1. Compared to the prior CT scan of 08/15/2022 there is cholelithiasis again noted but no evidence of acute cholecystitis nor dilatation of the biliary tree. 2. Again noted is evidence of right nephrectomy and right adrenalectomy. Small densities in the sofia l bed are unchanged. No gross lymphadenopathy. No new significant findings in the opposite-left kid annette. 3. Appendix diameter is upper normal measuring 7-8 mm and the appendix contains some calcified materi al within its lumen. There is, however, no periappendiceal streaking. 4. Urinary bladder wall is uniformly thickened, similar to previous. Probably related to cystitis or chronic bladder outlet obstruction in this patient who has an enlarged prostate gland. RADIATION DOSE DELIVERED: 1576.36 mGy.cm Total DLP DATA REPOSITORY: All CT scans at this facility are submitted to the National Radiology Data Registry (NRDR) Dose Index Registry (DIR) with the [employer] (ACR). RADIATION OPTIMIZATION: All CT scans at this facility use at least one of these dose optimization te chniques: automated exposure control; mA and/or kV adjustment per patient size (includes targeted exa ms where dose is matched to clinical indication); or iterative reconstruction.
[2022-09-13 17:51] LABS: Bilirubin Negative (Negative); Blood Trace-lysed (Negative); Clarity Clear (Clear); Glucose 100 mg/dL (Negative); Ketones Negative (Negative); Leukocyte Esterase Negative (Negative); Nitrite Negative (Negative); Urobilinogen 0.2 mg/dL (Up to 0.2); pH 5.5 (5-8)
--- NOTE | 2022-09-13 18:08 | DI.VRAD_ITS ---
PROCEDURE INFORMATION: Exam: XR Chest Exam date and time: 09/13/2022 5:42 PM Age: 62 years old Clinical indication: Fever TECHNIQUE: Imaging protocol: Radiologic exam of the chest. Views: 1 view. COMPARISON: CR XR CHEST 1V IN DI DEPT 09/10/2022 9:12 PM FINDINGS: Lungs: No consolidation. Pleural spaces: No pleural effusion. No pneumothorax. Heart/Mediastinum: No cardiomegaly. Bones/joints: Chronic healed left clavicular deformity partially seen and likely very similar to prior. No new bony pathology. IMPRESSION: Negative portable chest. Dictated and Authenticated by: Ligia Bundy MD. Ordering:[facility] Mary Jo Cano MD
[2022-09-13 18:21] LABS: Bacteria Few HPF (Negative); C & S Indicated? C&S Done As Ordered; Casts Negative LPF (Negative); Crystals Negative HPF (Negative); Epithelial Cells Rare HPF (Negative); Mucus Negative (Negative); RBC 0-2 HPF (0-2); WBC 0-2 HPF (0-5)
[2022-09-13] MEDS: Omnipaque 350 MG/ML 100 ML BTL IJ (18:45)
[2022-09-13] MEDS: Normal Saline - Diluent 50 ML VIAL IV (18:53)
--- NOTE | 2022-09-13 18:58 | DI.VRAD_ITS ---
PROCEDURE INFORMATION: Exam: CTA Chest With Contrast Exam date and time: 09/13/2022 6:42 PM Age: 62 years old Clinical indication: Dyspnea and fever; Additional info: Fever, dyspnea, R/O pe TECHNIQUE: Imaging protocol: Computed tomographic angiography of the chest with contrast. Exam focused on the arteries. 3D rendering (Not supervised by radiologist): MIP and/or 3D reconstructed images were created by the technologist. Radiation optimization: All CT scans at this facility use at least one of these dose optimization techniques: automated exposure control; mA and/or kV adjustment per patient size (includes targeted exams where dose is matched to clinical indication); or iterative reconstruction. Contrast material: OMNI 350; Contrast volume: 100 ml; Contrast route: INTRAVENOUS (IV); COMPARISON: CR XR PORTABLE CHEST AP 09/13/2022 5:42 PM FINDINGS: Pulmonary arteries: No pulmonary emboli. Aorta: No aortic aneurysm. No aortic dissection. Lungs: Microatelectasis and minor air trapping. No airspace disease. Pleural spaces: No pneumothorax. No pleural effusion. Heart: No cardiomegaly. No pericardial effusion. Lymph nodes: No enlarged lymph nodes. Bones/joints: No acute fracture. Soft tissues: No suspicious lesions. IMPRESSION: 1. No pulmonary emboli are seen. 2. Microatelectasis and minor air trapping. No airspace disease. Dictated and Authenticated by: Ligia Bundy MD. [facility] Mary Jo Cano MD
--- NOTE | 2022-09-13 19:01 | DI.VRAD_ITS ---
PROCEDURE INFORMATION: Exam: CT Abdomen And Pelvis With Contrast Exam date and time: 09/13/2022 6:42 PM Age: 62 years old Clinical indication: Fever; Additional info: C difficile colitis, fever TECHNIQUE: Imaging protocol: Computed tomography of the abdomen and pelvis with contrast. Radiation optimization: All CT scans at this facility use at least one of these dose optimization techniques: automated exposure control; mA and/or kV adjustment per patient size (includes targeted exams where dose is matched to clinical indication); or iterative reconstruction. Contrast material: OMNI 350; Contrast volume: 100 ml; Contrast route: INTRAVENOUS (IV); COMPARISON: CT ABDOMEN PELVIS WO 08/15/2022 10:25 PM FINDINGS: Lungs: Regarding the lung bases, please see same day CT thorax. Liver: No hepatic masses. Gallbladder and bile ducts: Cholelithiasis. Distended gallbladder. No significant biliary dilation or radiopaque stones in the biliary tree. Pancreas: No ductal dilation. No masses. Spleen: No splenomegaly or focal lesions. Adrenal glands: No definite right adrenal gland, presumed resection. Normal left adrenal gland. Kidneys and ureters: Right nephrectomy. Minor soft tissue nodules near surgical clips at this location very similar to recent imaging, attention on surveillance imaging. Tiny benign-appearing left renal cysts most likely. No left hydronephrosis. Stomach and bowel: Colonic diverticulosis without diverticulitis. Short portion of jejunum is right-sided and after this crosses the midline. No significant malrotation component. No enteritis or obstruction. Appendix: No evidence of appendicitis. Intraperitoneal space: No free air. No significant fluid collection. Vasculature: No abdominal aortic aneurysm. Lymph nodes: No significantly enlarged lymph nodes. Urinary bladder: Mild wall thickening of the urinary bladder is suspected almost certainly chronic outlet obstructive disease. Reproductive: Moderate prostatic enlargement. Bones/joints: Degenerative changes in the spine. No acute fracture or subluxation. Soft tissues: No suspicious lesions. IMPRESSION: 1. No acute findings. 2. Incidental findings as described. Dictated and Authenticated by: Ligia Bundy MD. Ordering:[facility] Mary Jo Cano MD
[2022-09-13 20:12] LABS: Lactate 0.8 mmol/L (0.6-1.4)
--- NOTE | 2022-09-13 20:19 | PTTR_ITS ---
Date of service: 09/13/22 Time of Service: 09:34 PT Notes Visit Reasons: General weakness,Anion gap acidosis,Dehydration,CK Physical Therapy Inpatient Treatment Note Date: 09/13/2022 Precautions: Fall. Standard. Activity as tolerated. Subjective: Motivated to get his walking much better. Hoping to go to a a snf for short- term rehab. Continues to report B knee pain worse with sit<>stand movement transition. Objective: General Observation: Seated on bedside chair.? Nurse Radha prepping up patient's meds when PT arrived. Mental Status: Alert and oriented as to person, place, time, and purpose. Able to pay attention, focus, and respond appropriately. Pain: 4-5/10 in in B knees and in R hand Vital Signs: Closely monitored by nursing staff Bed Mobility/Transfers: Sit to stand from bedside recliner moderate assist using FWW, cues provided to use both hands for support Stand to sit minimal assist, cues provided to use both hands for support Wheelchair to bed minimal assist using FWW Gait: Instructed patient with level surface ambulation of 200? feet + 200 feet requiring stand by assist and use of FWW,? wheelchair follow provided.? Prtii decreased. Step height decreased. Step length decreased.? Complained of pain in B knees with walking.?Cues provided to maitain labor commissioner on walker handle for addedd stability. THERA EX: Worked on chair push ups x 10 whiles seated on bedside chair to improve transfer skills. Instructed on seated marches? x10 and LAQs x 10. Balance: Static Sitting: Normal Dynamic Sitting: Normal Static Standing: Fair Dynamic Standing: Fair ASSESSMENT: Activity tolerance beginning to improve.? Motivated to regain his strength back.? Be sure to pre-medicate for pain to minimize B knee pain during sit<>stand movement transitions. Provided patient with bedside chair with higher set height to allow for ease of sit<>stand without undue pain. Hand dexterity improving. ? Patient with B CTS,? elbow OA,? and diabetic polyneuropathy contributing to this B hand weakness.? Dylan requires the use of FWW for all transfer and ambulation task performance as well as the assistance of one person and wheelchair follow for safety.? His goal is to regain his independent ability with ambulation without any device per prior level of function.? DISCHARGE RECOMMENDATIONS: [] ? Home with no services [] [] ? Home with services [] ? Home with outpatient PT [] [X] ? SNF for continued rehabilitation.? Will benefit from short-term rehab to maximize strength,? balance,? and mobility gains in anticipation of return to home alone. [] ? Garbage Collector Supervisor Care [] [] ? SNF versus LTC based on ability to participate and progress [] TREATMENT CODE/TIME: 28188 x 35 minutes, 50463 x 16 minutes beginning at 9:34 AM.
[2022-09-13 20:54] LABS: Vancomycin, Random < 0.8 ug/mL
[2022-09-13] MEDS: VANCOMYCIN 2,500 MG in Normal Saline 500 ML 200 MG IVPB (22:11)
[2022-09-13] MEDS: Gabapentin 300 MG CAP PO (22:16)
[2022-09-13] MEDS: Metoprolol CR 25 MG TABCR PO (22:16)
[2022-09-13] MEDS: Atorvastatin 20 MG TAB PO (22:16)
[2022-09-13] MEDS: Water,Injection,Sterile 10 ML VIAL (22:18)
[2022-09-13] MEDS: Insulin Glargine 300 UNITS/3 ML PEN 50 UNITS SC (22:24)
[2022-09-14] VITALS (10 sets, daily range): BP systolic 126–174; BP diastolic 77–89; PULSE 99–113; RESP 17–20; TEMP 36.3–37.8; O2SAT 95–98
[2022-09-14] MEDS: CEFEPIME 2 GM in Normal Saline 100 ML IVPB ×2 (01:06→20:58)
[2022-09-14] MEDS: metroNIDAZOLE 500 MG/100 ML BAG 100 MG IVPB ×2 (04:02→13:07)
[2022-09-14] MEDS: Acetaminophen 325 MG TAB PO ×2 (04:09→22:33)
--- NOTE | 2022-09-14 04:23 | NUR.NOTE ---
Pharmacy notification 2200 on 09/13/22 Before administering the dosage of 2500mg loading vancomycin. i contacted the pharmacy ordnance truck installation supervisor to make sure they are aware that the patient has a single kidney, and that his BUN and creatinine are already increasing. the person on the phone assured me that first loading dosage is based on weight regardless of kidney function.... end note. Nursing Note:
[2022-09-14 07:10] LABS: Absolute Basophil Count 0.07 10^3/uL (0.0-0.2); Absolute Eosinophil Count 0.55 10^3/uL (0.0-0.7); Absolute Monocyte Count 1.16 10^3/uL (0.1-0.8); Absolute Neutrophil Count 9.73 10^3/uL (1.2-6.7); Basophils % 0.5; HCT 27.8 % (40.0-50.0); HGB 8.9 g/dL (13.5-17.5); Immature Grans % 3.7; Lymphocytes % 12.1; MCH 26.3 pg (27.0-33.0); MCV 82 fL (80-95); MPV 9.9 fL (8.0-11.0); Monocytes % 8.5; Neutrophils % 71.2; Platelet Count 412 10^3/uL (130-400); RBC 3.39 10^6/uL (4.36-5.78); RDW 17.7 % (11.8-14.1); RDW-SD 53.1 fL; WBC 13.67 10^3/uL (4.4-10.8)
[2022-09-14 07:13] LABS: Absolute Lymphocyte Count 1.65 10^3/uL (1.2-3.4)
[2022-09-14 07:24] LABS: Magnesium 1.5 mg/dL (1.8-2.4)
[2022-09-14 07:29] LABS: ALT 28 U/L (16-63); AST 18 U/L (15-37); Albumin 2.2 g/dL (3.4-5.0); Alkaline Phosphatase 75 U/L (46-116); BUN 22 mg/dL (7-18); Bilirubin, Total 0.4 mg/dL (0.2-1.0); C-Reactive Protein 18.55 mg/dL (0.0-0.3); CREATININE 1.8 mg/dL (0.70-1.30); Calcium 9.3 mg/dL (8.5-10.1); Chloride 100 mmol/L (98-107); Estimated GFR 41.77 (mL/min/1.73m2); Glucose 159 mg/dL (74-106); Potassium 3.7 mmol/L (3.5-5.1); Sodium 133 mmol/L (136-145); Total Protein 7.2 g/dL (6.4-8.2)
--- NOTE | 2022-09-14 09:57 | PT.INTREAT ---
PT Notes Visit Reasons: General weakness,Anion gap acidosis,Dehydration,CK Direct Treatment Time: [45] Total Treatment Time: [45] Treatment Units Time Duration Gait Training (92237) [2] [25] Therapeutic Activity (41320) [1] [20] Date: 09/14/2022 Precautions: Fall. Standard. Activity as tolerated. Subjective: Pt in bed when approached for therapy this morning, pt agreed to participating with therapy, assistance with donning gown and socks prior to session. Objective: General Observation: pt awake in bed Mental Status: Alert and oriented as to person, place, time, and purpose. Able to pay attention, focus, and respond appropriately. Pain: 4-5/10 in in B knees and in R hand Vital Signs: Closely monitored by nursing staff, IV line on the RUE Bed Mobility/Transfers: supine to EOB min A, Sit to stand from bedside recliner moderate assist using FWW, cues provided to use both hands for support Stand to sit minimal assist, cues provided to use both hands for support Gait: Instructed patient with level surface ambulation of 200? feet + 200 feet requiring stand by assist and use of FWW,? wheelchair follow provided.? Priti decreased. Step height decreased. Step length decreased.? Complained of pain in B knees with walking.?Cues provided to maitain pick and shovel man on walker handle for addedd stability. Balance: Static Sitting: Normal Dynamic Sitting: Normal Static Standing: Fair Dynamic Standing: Fair ASSESSMENT: Pt had positive response with gait training and transfer training with pt reporting pain on the right knee has been resolved, pt reports feeling comfortable in recliner after session. 3lbs ankle weights and green theraband for HEP for BLE and BUE during pt freetime. DISCHARGE RECOMMENDATIONS: [] ? Home with no services [] [] ? Home with services [] ? Home with outpatient PT [] [X] ? SNF for continued rehabilitation.? Will benefit from short-term rehab to maximize strength,? balance,? and mobility gains in anticipation of return to home alone. [] ? [facility] [] [] ? SNF versus LTC based on ability to participate and progress [] TREATMENT CODE/TIME: 79642 x1 20 minutes,? 97877 x2 25 minutes beginning at 8:30-9:15 AM.
[2022-09-14] MEDS: Insulin Aspart 300 UNITS/3 ML PEN SC ×7 (10:01→20:48)
[2022-09-14] MEDS: Potassium Chloride 10 MEQ CAPCR 20 MEQ PO (10:03)
[2022-09-14] MEDS: DULoxetine 30 MG CAP 60 MG PO (10:03)
[2022-09-14] MEDS: Magnesium Oxide 400 MG TAB 800 MG PO ×2 (10:04→20:53)
[2022-09-14] MEDS: traMADol 50 MG TAB PO ×4 (10:04→20:52)
[2022-09-14] MEDS: Thiamine 100 MG TAB PO (10:05)
[2022-09-14] MEDS: Multivitamin TAB 1 TAB PO (10:05)
[2022-09-14] MEDS: Lactobacillus Acidophilus CAP 1 CAP PO ×2 (10:05→20:52)
[2022-09-14] MEDS: Fidaxomicin 200 MG TAB PO ×2 (10:06→20:53)
[2022-09-14] MEDS: Enoxaparin 40 MG/0.4 ML SYR SC (10:06)
[2022-09-14] MEDS: Diclofenac 1% Gel 100 GM TUBE TP ×4 (10:10→20:58)
[2022-09-14] MEDS: Normal Saline Flush 10 ML SYR IVP (10:11)
[2022-09-14] MEDS: MAGNESIUM SULFATE 2 GM/50 ML BAG IVPB ×2 (10:39→15:34)
[2022-09-14] MEDS: Folic Acid 1 MG TAB PO (13:04)
--- NOTE | 2022-09-14 14:22 | W.PM.PROGNOT ---
Date of Service Date of service: 09/14/22 Time of Service: 14:22 Assessment and Plan Assessment and plan (1) Colitis due to Clostridium difficile: Start date: 09/09/22 Status: Acute Assessment and plan: C. difficile positive with recent hospitalization. Cont. Dificid p.o. and IV Flagyl and oral vancomycin for now but will transition to po dificid upon discharge. Pharmacy to distribute at discharge. Professional time spent interviewing and examining patient, discussion of goals of care with hospital team (care management, nursing and consulting professionals) was 40 minutes. (2) Fever: Status: Acute Assessment and plan: unclear etiology. cultures pending. Patient begun on iv vancomcyin and cefepime empirically for GI/ coverage and possible Staph from iv infiltration but if his blood cultures and urine cultures have no growth then will stop antibiotics except those targeting his C difficile colitis. (3) Thrombosis superficial vein, arm, acute: Status: Acute Assessment and plan: No PE on yesterday's CTA chest. Left arm is no longer swollen and is nontender. continue to monitor (4) Sinus tachycardia: Status: Acute Assessment and plan: unclear etiology but w/ the recent fever and rising WBC and CRP and glucose, this suggests that he has some other superimposed infection but I can not pinpoint the source as his CT chest/abdomen/pelvis have been negative. The left arm cephalic thrombosis appears to be resolving. He has C difficile but even his BM have improved and he has no abdominal symptoms at this point. He says that he has always had a fast heart rate and was put on metoprolol for this. I will increase his nightly Toprol XL from 25 mg to 50 mg nightly and give him one time dose of lopressor this afternoon. His BP has been climbing as well. (5) Leukocytosis (leucocytosis): Status: Resolved (6) CKD (chronic kidney disease) stage 4, GFR 15-29 ml/min: Start date: 09/10/22 Status: Chronic Assessment and plan: Patient's ALEJANDRO has resolved he is now down to his baseline BUN and creatinine of 22 and 1.8 respectively. (7) Hyponatremia: Start date: 09/10/22 Status: Acute Assessment and plan: Most likely associated with chronic alcohol use. His sodium levels have fluctuated but generally are 130 to 137. (8) Hypomagnesemia: Start date: 09/10/22 Status: Acute Assessment and plan: Recurrent depletion with alcohol use. Repeat magnesium down to 1.5 this morning. Continue oral supplementation and will give iv supplementation to correct acutely. repeat levels in the a.m. (9) Type 1 diabetes mellitus without complications: Assessment and plan: patient on basal bolus insulin with CHO coverage and glucose has improved since addition of mealtime coverage. (glucose 162 to 260 today). (10) Anemia: Status: Chronic Assessment and plan: Most likely secondary to chronic disease and poor nutrition. Stable around 9 gm (11) General weakness: Start date: 09/10/22 Status: Acute Assessment and plan: continue work w/ P.T., may need SNF, CM has placed referrals, if no acceptance early next week and if P.T. does not feel he is safe for home dc w/ home PT then we will swing him here at [facility] for short term rehab stay. (12) Alcohol use disorder: Status: Chronic Assessment and plan: Patient needs stop drinking long-term and prognosis poor for change. During the admission from 09/07 to 09/10/22 he endorsed desire to remain sober. He also now does discuss possible rehabilitation and cessation at hospitalizations but never followed through. We had requested a head boys golf coach consult but they did not visit with the patient d/t his C.Diff + status. . (13) Discharge planning issues: Status: Acute Assessment and plan: Referrals being sent to SNFs., possible swing bed next week vs home w/ HHS and PT and OT. Subjective Subjective Interval history since last seen: Mina is feeling better today denies any dizziness or lightheadedness. No chest pain or shortness of breath. He is afebrile today. Blood cultures are still pending. Still has resting tachycardia with heart rates in the low 100s to 110s. With activity his heart rate will get up into the 120s. Told Mina that this may be secondary to his fever and infection. We have not found any secondary source of fever. He asked me why the CAT scan was done yesterday I explained to him that because of the thrombus in his left arm we did a CT of his chest to rule out a PE also the CT ruled out any pneumonia. He underwent CT of his abdomen pelvis to rule out worsening colitis or abscess as a source of fever and tachycardia. As far as his bowel movements he says there getting more formed. He has no abdominal pain nausea or vomiting. Exam Narrative Exam Narrative: Mina looks more like himself today he is alert he is oriented person place time circumstance rather talkative and pleasant. Lungs are clear to auscultation Heart is regular but slightly tachycardic probably about 100 bpm. There is no appreciable murmur rub or gallop. Abdomen is soft and nontender no guarding no rebound tenderness she has normal bowel sounds. Extremities look to his left arm again at the site of the previous IV there is no purulent drainage no redness no tenderness and no edema. Objective Last Vital Signs Temp 36.3 C L 09/14/22 11:40 Pulse 108 H 09/14/22 11:40 Resp 20 09/14/22 11:40 BP 174/89 H 09/14/22 11:40 Pulse Ox 98 09/14/22 11:40 Laboratory Results - last 24 hr 09/13/22 09/13/22 09/13/22 16:20 16:20 16:20 WBC RBC Hgb Hct MCV MCH MCHC RDW Plt Count MPV Immature Gran % Neutrophils % Lymphocytes % Monocytes % Eosinophils % Basophils % Nucleated RBC % Absolute Neutrophils Absolute Lymphocytes Absolute Monocytes Absolute Eosinophils Absolute Basophils D-Dimer VBG Lactate 0.9 Sodium Potassium Chloride Carbon Dioxide Anion Gap BUN Creatinine Est GFR (CKD-EPI 2020) Glucose Calcium Magnesium Total Bilirubin AST ALT Alkaline Phosphatase C-Reactive Protein 18.28 H Total Protein Albumin Procalcitonin 0.5 Urine Color Urine Clarity Urine pH Ur Specific [place] Urine Protein Urine Ketones Urine Blood Urine Nitrite Urine Bilirubin Urine Urobilinogen Ur Leukocyte Esterase Urine RBC Urine WBC Ur Epithelial Cells Urine Crystals Urine Bacteria Urine Casts Urine Mucus Ur Culture Indicated? Urine Glucose Random Vancomycin 09/13/22 09/13/22 09/13/22 16:20 16:20 16:20 WBC 14.35 H RBC 3.45 L Hgb 9.0 L Hct 27.9 L MCV 81 MCH 26.1 L MCHC 32.3 RDW 17.5 H Plt Count 409 H MPV 9.6 Immature Gran % 2.2 Neutrophils % 73.4 Lymphocytes % 12.6 Monocytes % 9.3 Eosinophils % 2.0 Basophils % 0.5 Nucleated RBC % 0.0 Absolute Neutrophils 10.53 H Absolute Lymphocytes 1.81 Absolute Monocytes 1.33 H Absolute Eosinophils 0.29 Absolute Basophils 0.07 D-Dimer 6602 H VBG Lactate Sodium 132 L Potassium 3.7 Chloride 100 Carbon Dioxide 19.1 L Anion Gap 12.9 H BUN 23 H Creatinine 1.7 H Est GFR (CKD-EPI 2020) 44.74 Glucose 220 H Calcium 9.1 Magnesium Total Bilirubin 0.3 AST 32 ALT 31 Alkaline Phosphatase 85 C-Reactive Protein Total Protein 7.4 Albumin 2.3 L Procalcitonin Urine Color Urine Clarity Urine pH Ur Specific [place] Urine Protein Urine Ketones Urine Blood Urine Nitrite Urine Bilirubin Urine Urobilinogen Ur Leukocyte Esterase Urine RBC Urine WBC Ur Epithelial Cells Urine Crystals Urine Bacteria Urine Casts Urine Mucus Ur Culture Indicated? Urine Glucose Random Vancomycin 09/13/22 09/13/22 09/13/22 17:00 20:05 20:05 WBC RBC Hgb Hct MCV MCH MCHC RDW Plt Count MPV Immature Gran % Neutrophils % Lymphocytes % Monocytes % Eosinophils % Basophils % Nucleated RBC % Absolute Neutrophils Absolute Lymphocytes Absolute Monocytes Absolute Eosinophils Absolute Basophils D-Dimer VBG Lactate 0.8 Sodium Potassium Chloride Carbon Dioxide Anion Gap BUN Creatinine Est GFR (CKD-EPI 2020) Glucose Calcium Magnesium Total Bilirubin AST ALT Alkaline Phosphatase C-Reactive Protein Total Protein Albumin Procalcitonin Urine Color Yellow Urine Clarity Clear Urine pH 5.5 Ur Specific [place] 1.020 Urine Protein >=300 H Urine Ketones Negative Urine Blood Trace-lysed H Urine Nitrite Negative Urine Bilirubin Negative Urine Urobilinogen 0.2 Ur Leukocyte Esterase Negative Urine RBC 0-2 Urine WBC 0-2 Ur Epithelial Cells Rare Urine Crystals Negative Urine Bacteria Few Urine Casts Negative Urine Mucus Negative Ur Culture Indicated? C&S Done As Ordered Urine Glucose 100 H Random Vancomycin < 0.8 09/14/22 09/14/22 09/14/22 06:30 06:30 06:30 WBC 13.67 H RBC 3.39 L Hgb 8.9 L Hct 27.8 L MCV 82 MCH 26.3 L MCHC 32.0 RDW 17.7 H Plt Count 412 H MPV 9.9 Immature Gran % 3.7 Neutrophils % 71.2 Lymphocytes % 12.1 Monocytes % 8.5 Eosinophils % 4.0 Basophils % 0.5 Nucleated RBC % 0.0 Absolute Neutrophils 9.73 H Absolute Lymphocytes 1.65 Absolute Monocytes 1.16 H Absolute Eosinophils 0.55 Absolute Basophils 0.07 D-Dimer VBG Lactate Sodium 133 L Potassium 3.7 Chloride 100 Carbon Dioxide 20.0 L Anion Gap 13.0 H BUN 22 H Creatinine 1.8 H Est GFR (CKD-EPI 2020) 41.77 Glucose 159 H Calcium 9.3 Magnesium 1.5 L Total Bilirubin 0.4 AST 18 ALT 28 Alkaline Phosphatase 75 C-Reactive Protein 18.55 H Total Protein 7.2 Albumin 2.2 L Procalcitonin Urine Color Urine Clarity Urine pH Ur Specific [place] Urine Protein Urine Ketones Urine Blood Urine Nitrite Urine Bilirubin Urine Urobilinogen Ur Leukocyte Esterase Urine RBC Urine WBC Ur Epithelial Cells Urine Crystals Urine Bacteria Urine Casts Urine Mucus Ur Culture Indicated? Urine Glucose Random Vancomycin PAWSS Have you Been Recently Intoxicated or Drunk Within the Last 30 days?: Yes Have you Ever Experienced Previous Episodes of Alcohol Withdrawal?: Yes Have you ever Experienced Withdrawal Seizures?: No Have you ever Experienced Delirium Tremens(DT)s?: No Have you ever undergone Alcohol Rehabilitation Treatment (i.e, inpt ot outpatient treatment programs)?: No Have you ever Experienced Blackouts?: Yes Have you ever Combined Alcohol with other Downers within the last 90 days?: No Have you ever Combined Alcohol with any other Substance of Abuse during the last 90 days?: No Positive Blood Alcohol level on Presentation? [PCS.BAL]: Yes Evidence of Increased Autonomic Activity (i.e. HR>120, tremor, sweating, agitation, nausea)?: Yes Result: 5 Time Spent with Patient Time Spent with Patient: 35-49 minutes Time was spent: preparing to see the patient(eg.review tests), referring, communicating with other health healthcare representative, indepentently interpreting results, counseling the patient and care coordination
[2022-09-14] MEDS: Metoprolol 25 MG TAB PO (15:34)
[2022-09-14] MEDS: Insulin Glargine 300 UNITS/3 ML PEN 50 UNITS SC (20:48)
[2022-09-14] MEDS: Gabapentin 300 MG CAP PO (20:52)
[2022-09-14] MEDS: Atorvastatin 20 MG TAB PO (20:54)
[2022-09-14] MEDS: Psyllium PKT 1 EACH PO (20:54)
[2022-09-14] MEDS: VANCOMYCIN/WATER (PEG) 1.5 GM/300 ML BAG IVPB (22:32)
[2022-09-14] MEDS: Metoprolol CR 50 MG TABCR PO (22:33)
[2022-09-15] VITALS (10 sets, daily range): BP systolic 109–155; BP diastolic 68–88; PULSE 75–104; RESP 16–20; TEMP 35.4–36.8; O2SAT 90–98
[2022-09-15] MEDS: metroNIDAZOLE 500 MG/100 ML BAG 100 MG IVPB ×3 (00:38→16:10)
[2022-09-15] MEDS: Acetaminophen 325 MG TAB PO ×2 (02:25→19:21)
[2022-09-15] MEDS: Ketorolac 15 MG/ML VIAL IVP (03:27)
[2022-09-15] MEDS: oxyCODONE 10 MG TAB PO (04:02)
--- NOTE | 2022-09-15 04:47 | DSU.FORM ---
IV attempt 0430 pts 22g IV appears to have infiltrated. from NS no redness, just swelling. pt does not report tenderness at sight. a tourniquet was applied and assessment f palpable vein prior to cleaning. I cleaned pts upper AC of right arm extensively with alcohol and chlorahexadine prior to attempted 20G catheter insertion. no blood return noted with initial insertion, of 20g IV. I stopped and applied pressure with gauze and tape on pts arm. hemostasis within expected time frame.
[2022-09-15 07:11] LABS: HCT 26.6 % (40.0-50.0); HGB 8.4 g/dL (13.5-17.5); MCH 26.2 pg (27.0-33.0); MCHC 31.6 % (32.0-36.0); MCV 83 fL (80-95); MPV 9.7 fL (8.0-11.0); Platelet Count 446 10^3/uL (130-400); RBC 3.21 10^6/uL (4.36-5.78); RDW 17.7 % (11.8-14.1); RDW-SD 53.9 fL; WBC 16.52 10^3/uL (4.4-10.8)
[2022-09-15 07:31] LABS: Anion Gap 11.4 mmol/L (3-11); BUN 28 mg/dL (7-18); CO2 20.6 mmol/L (21.0-32.0); CREATININE 2.1 mg/dL (0.70-1.30); Calcium 9.2 mg/dL (8.5-10.1); Chloride 102 mmol/L (98-107); Estimated GFR 34.72 (mL/min/1.73m2); Glucose 155 mg/dL (74-106); Magnesium 2.1 mg/dL (1.8-2.4); Potassium 4.2 mmol/L (3.5-5.1); Sodium 134 mmol/L (136-145)
[2022-09-15 07:34] LABS: C-Reactive Protein 15.69 mg/dL (0.0-0.3)
[2022-09-15 07:49] LABS: Absolute Basophil Count 0.17 10^3/uL (0.0-0.2); Absolute Eosinophil Count 0.83 10^3/uL (0.0-0.7); Absolute Lymphocyte Count 2.15 10^3/uL (1.2-3.4); Absolute Neutrophil Count 12.56 10^3/uL (1.2-6.7); Anisocytosis 1+; Diff Comment Manual Differential; Metamyelocytes % 2
[2022-09-15 07:50] LABS: Microcytosis 1+; Polychromasia Present
[2022-09-15 07:53] LABS: Procalcitonin 0.5 ng/mL
[2022-09-15] MEDS: Multivitamin TAB 1 TAB PO (08:59)
[2022-09-15] MEDS: Fidaxomicin 200 MG TAB PO ×2 (08:59→19:27)
[2022-09-15] MEDS: Potassium Chloride 10 MEQ CAPCR 20 MEQ PO (08:59)
[2022-09-15] MEDS: Thiamine 100 MG TAB PO (08:59)
[2022-09-15] MEDS: Lactobacillus Acidophilus CAP 1 CAP PO (08:59)
[2022-09-15] MEDS: Enoxaparin 40 MG/0.4 ML SYR SC (09:00)
[2022-09-15] MEDS: DULoxetine 30 MG CAP 60 MG PO (09:00)
[2022-09-15] MEDS: traMADol 50 MG TAB PO ×4 (09:00→19:25)
[2022-09-15] MEDS: Psyllium PKT 1 EACH PO ×2 (09:00→13:13)
[2022-09-15] MEDS: Folic Acid 1 MG TAB PO (09:00)
[2022-09-15] MEDS: Insulin Aspart 300 UNITS/3 ML PEN SC ×6 (09:01→18:27)
[2022-09-15] MEDS: Diclofenac 1% Gel 100 GM TUBE TP ×4 (09:22→19:25)
[2022-09-15] MEDS: Magnesium Oxide 400 MG TAB 800 MG PO ×2 (09:23→19:41)
[2022-09-15 11:08] LABS: Bilirubin Negative (Negative); Blood Negative (Negative); Clarity Clear (Clear); Glucose Negative (Negative); Ketones Negative (Negative); Leukocyte Esterase Negative (Negative); Nitrite Negative (Negative); Specific Gravity <= 1.005 (1.005-1.025); Urobilinogen 0.2 mg/dL (Up to 0.2)
[2022-09-15 11:18] LABS: RBC 0-2 HPF (0-2); WBC 0-2 HPF (0-5)
[2022-09-15 11:19] LABS: Bacteria Negative HPF (Negative); C & S Indicated? No; Casts Negative LPF (Negative); Crystals Negative HPF (Negative); Epithelial Cells Negative HPF (Negative); Mucus Trace (Negative)
--- NOTE | 2022-09-15 11:44 | NT_ITS ---
PT Notes Visit Reasons: General weakness,Anion gap acidosis,Dehydration,CK Pt approached multiple times during the course of the morning, pt sleeping at all attempts not able to get pt awake until later when this SENIOR C WEB DEVELOPER went in with nurse, pt woke up for a bit and refused participating with therapy reporting the walking yesterday left him with left knee pain and had to take pain meds to help with managing the pain, Nurse Rekha present when pt refused therapy.
--- NOTE | 2022-09-15 15:48 | PGE_ITS ---
Date of Service Date of service: 09/15/22 Time of Service: 15:49 Assessment and Plan Assessment and plan (1) Colitis due to Clostridium difficile: Start date: 09/09/22 Status: Acute Assessment and plan: C. difficile positive with recent hospitalization. Cont. Dificid p.o. and IV Flagyl and oral vancomycin for now but will transitio n to po dificid upon discharge. Pharmacy to distribute at discharge. Professional time spent interviewing and examining patient, discussion of goals of care with hospital team (care management, nursing and consulting professionals) was 40 minutes. (2) Fever: Status: Acute Assessment and plan: unclear etiology. CT of abdomen and pelvis did not show any abscess or signs of megacolon. Urine and blood cultures from 09/13 are no growth so far. He has been afebrile since the afternoon of 09/13. As we have not found any other infection other than his C difficile colitis which has improved, I will stop all other antibiotics except for his Dificid. (3) Thrombosis superficial vein, arm, acute: Status: Acute Assessment and plan: No PE on CTA chest. Left arm is no longer swollen and is nontender. continue to monitor (4) Sinus tachycardia: Status: Acute Assessment and plan: his sinus tachycardia has finally improved. HR today has been in the 70's to 90's. (5) Leukocytosis (leucocytosis): Status: Resolved Assessment and plan: he still has a leukocytosis but will monitor for now. stop antibiotics in setting of lack of infectious source. (6) CKD (chronic kidney disease) stage 4, GFR 15-29 ml/min: Start date: 09/10/22 Status: Chronic Assessment and plan: his AELJANDRO has resolved. he appears to be at his baseline ( BUN 28, creatinine 2.1) (7) Hyponatremia: Start date: 09/10/22 Status: Acute Assessment and plan: Most likely associated with chronic alcohol use. His sodium levels have fluctuated but generally are 130 to 137. (8) Hypomagnesemia: Start date: 09/10/22 Status: Acute Assessment and plan: improved on supplementation. Mg 2.1 today. (9) Type 1 diabetes mellitus without complications: Assessment and plan: patient on basal bolus insulin with CHO coverage and glucose has improved since addition of mealtime coverage. (glucose 162 to 260 today). (10) Anemia: Status: Chronic Assessment and plan: Most likely secondary to chronic disease and poor nutrition. Stable around 9 gm (11) General weakness: Start date: 09/10/22 Status: Acute Assessment and plan: continue work w/ P.T., may need SNF, CM has placed referrals, if no acceptance early next week and if P.T. does not feel he is safe for home dc w/ home PT then we will swing him here at [facility] for short term rehab stay. (12) Alcohol use disorder: Status: Chronic Assessment and plan: Patient needs stop drinking long-term and prognosis poor for change. During the admission from 09/07 to 09/10/22 he endorsed desire to remain sober. He also now does discuss possible rehabilitation and cessation at hospitalizations but never followed through. We had requested a charter coach driver consult but they did not visit with the patient d/t his C.Diff + status. . (13) Discharge planning issues: Status: Acute Assessment and plan: Referrals being sent to SNFs., possible swing bed next week vs home w/ HHS and PT and OT. Subjective Subjective Interval history since last seen: Mina says that he over did it yesterday w/ P.T. and last night he was having soreness in his left leg around his knee, calf and proximal thigh. He did not sleep well until he fell asleep around 4 A.M. He has been sleeping most of the day away but otherwise he has done well. No fevers today. He denies any dyspnea, CP, abdominal pains. Bowel movements are doing better, no diarrhea. I told him that I could not find any reasons for his fevers based on his CT scans. His C difficile colitis has improved. I have him on cefepime and vancomycin but if his repeat urine and blood cultures are negative then I will dc all antibiotics except his Dificid for his C difficile colitis. Exam Narrative Exam Narrative: Mina was sleeping when I went into his room. he awoke easily and he had an informative conversation. When I asked about his left leg/knee pain he says that is gone now Alert/oriented x 3 Lungs: clear Heart: RRR Abdomen: soft, nontender, nondistended Extremities: left leg w/out swelling, pain or induration, calf is soft and nontender. Left arm at site of prior infiltrated iv appears ok. no redness or induration or tenderness; likewise his right sided extremities look normal Objective Last Vital Signs Temp 36.0 C L 09/15/22 14:13 Pulse 76 09/15/22 14:13 Resp 20 09/15/22 14:13 BP 109/68 09/15/22 14:13 Pulse Ox 98 09/15/22 14:13 Laboratory Results - last 24 hr 09/15/22 09/15/22 09/15/22 06:30 06:30 06:30 WBC RBC Hgb Hct MCV MCH MCHC RDW Plt Count MPV Immature Gran % Neutrophils % Lymphocytes % Monocytes % Eosinophils % Basophils % Metamyelocytes % Nucleated RBC % Absolute Neutrophils Absolute Lymphocytes Absolute Monocytes Absolute Eosinophils Absolute Basophils RBC Morphology Polychromasia Anisocytosis Microcytosis Sodium 134 L Potassium 4.2 Chloride 102 Carbon Dioxide 20.6 L Anion Gap 11.4 H BUN 28 H Creatinine 2.1 H Est GFR (CKD-EPI 2020) 34.72 Glucose 155 H Calcium 9.2 Magnesium 2.1 C-Reactive Protein 15.69 H Procalcitonin 0.5 Urine Color Urine Clarity Urine pH Ur Specific [place] Urine Protein Urine Ketones Urine Blood Urine Nitrite Urine Bilirubin Urine Urobilinogen Ur Leukocyte Esterase Urine RBC Urine WBC Ur Epithelial Cells Urine Crystals Urine Bacteria Urine Casts Urine Mucus Ur Culture Indicated? Urine Glucose 09/15/22 09/15/22 06:30 10:30 WBC 16.52 H RBC 3.21 L Hgb 8.4 L Hct 26.6 L MCV 83 MCH 26.2 L MCHC 31.6 L RDW 17.7 H Plt Count 446 H MPV 9.7 Immature Gran % See Differential Neutrophils % 76.0 Lymphocytes % 13.0 Monocytes % 3.0 Eosinophils % 5.0 Basophils % 1.0 Metamyelocytes % 2 Nucleated RBC % 0.0 Absolute Neutrophils 12.56 H Absolute Lymphocytes 2.15 Absolute Monocytes 0.50 Absolute Eosinophils 0.83 H Absolute Basophils 0.17 RBC Morphology See Below Polychromasia Present Anisocytosis 1+ Microcytosis 1+ Sodium Potassium Chloride Carbon Dioxide Anion Gap BUN Creatinine Est GFR (CKD-EPI 2020) Glucose Calcium Magnesium C-Reactive Protein Procalcitonin Urine Color Yellow Urine Clarity Clear Urine pH 5.0 Ur Specific [place] <= 1.005 Urine Protein 100 H Urine Ketones Negative Urine Blood Negative Urine Nitrite Negative Urine Bilirubin Negative Urine Urobilinogen 0.2 Ur Leukocyte Esterase Negative Urine RBC 0-2 Urine WBC 0-2 Ur Epithelial Cells Negative Urine Crystals Negative Urine Bacteria Negative Urine Casts Negative Urine Mucus Trace Ur Culture Indicated? No Urine Glucose Negative PAWSS Have you Been Recently Intoxicated or Drunk Within the Last 30 days?: Yes Have you Ever Experienced Previous Episodes of Alcohol Withdrawal?: Yes Have you ever Experienced Withdrawal Seizures?: No Have you ever Experienced Delirium Tremens(DT)s?: No Have you ever undergone Alcohol Rehabilitation Treatment (i.e, inpt ot outpatient treatment programs)?: No Have you ever Experienced Blackouts?: Yes Have you ever Combined Alcohol with other Downers within the last 90 days?: No Have you ever Combined Alcohol with any other Substance of Abuse during the last 90 days?: No Positive Blood Alcohol level on Presentation? [PCS.BAL]: Yes Evidence of Increased Autonomic Activity (i.e. HR>120, tremor, sweating, agitation, nausea)?: Yes Result: 5 Time Spent with Patient Time Spent with Patient: 25-34 minutes Time was spent: preparing to see the patient(eg.review tests), ordering medications,tests, procedures, referring, communicating with other health acute care nurse practitioner, indepentently interpreting results, counseling the patient and care coordination
[2022-09-15] MEDS: Atorvastatin 20 MG TAB PO (19:27)
[2022-09-15] MEDS: Gabapentin 300 MG CAP PO (19:27)
[2022-09-15] MEDS: Metoprolol CR 50 MG TABCR PO (19:28)
[2022-09-16] MEDS: Insulin Glargine 300 UNITS/3 ML PEN 50 UNITS SC (02:06)
[2022-09-16 03:10] VITALS: BP 147/90; PULSE 99; RESP 20; TEMP 36.3; O2SAT 94
[2022-09-16 06:30] VITALS: BP 143/89; PULSE 102; RESP 20; TEMP 37.1; O2SAT 94
[2022-09-16 06:57] LABS: HCT 28.5 % (40.0-50.0); HGB 9.1 g/dL (13.5-17.5); MCH 26.4 pg (27.0-33.0); MCHC 31.9 % (32.0-36.0); MCV 83 fL (80-95); MPV 9.5 fL (8.0-11.0); RBC 3.45 10^6/uL (4.36-5.78); RDW 18.2 % (11.8-14.1); RDW-SD 54.8 fL; WBC 14.67 10^3/uL (4.4-10.8)
[2022-09-16 07:00] VITALS: PULSE 115
[2022-09-16 07:15] LABS: ALT 32 U/L (16-63); AST 20 U/L (15-37); Albumin 2.3 g/dL (3.4-5.0); Alkaline Phosphatase 72 U/L (46-116); Anion Gap 12.1 mmol/L (3-11); BUN 30 mg/dL (7-18); Bilirubin, Total 0.3 mg/dL (0.2-1.0); C-Reactive Protein 11.52 mg/dL (0.0-0.3); CO2 20.9 mmol/L (21.0-32.0); CREATININE 1.8 mg/dL (0.70-1.30); Calcium 9.3 mg/dL (8.5-10.1); Chloride 104 mmol/L (98-107); Estimated GFR 41.77 (mL/min/1.73m2); Glucose 127 mg/dL (74-106); Sodium 137 mmol/L (136-145); Total Protein 7.5 g/dL (6.4-8.2)
[2022-09-16 07:37] LABS: Absolute Eosinophil Count 1.61 10^3/uL (0.0-0.7); Absolute Lymphocyte Count 1.32 10^3/uL (1.2-3.4); Absolute Monocyte Count 0.73 10^3/uL (0.1-0.8); Absolute Neutrophil Count 10.71 10^3/uL (1.2-6.7); Metamyelocytes % 2; Platelet Count 530 10^3/uL (130-400)
[2022-09-16 07:38] LABS: Anisocytosis 2+; Diff Comment Manual Differential; Polychromasia Present
[2022-09-16] MEDS: Fidaxomicin 200 MG TAB PO ×2 (08:21→19:48)
[2022-09-16] MEDS: Folic Acid 1 MG TAB PO (08:21)
[2022-09-16] MEDS: Magnesium Oxide 400 MG TAB 800 MG PO ×2 (08:21→19:48)
[2022-09-16] MEDS: DULoxetine 30 MG CAP 60 MG PO (08:21)
[2022-09-16] MEDS: Multivitamin TAB 1 TAB PO (08:21)
[2022-09-16] MEDS: Enoxaparin 40 MG/0.4 ML SYR SC (08:22)
[2022-09-16] MEDS: Psyllium PKT 1 EACH PO ×3 (08:22→19:47)
[2022-09-16] MEDS: Thiamine 100 MG TAB PO (08:22)
[2022-09-16] MEDS: traMADol 50 MG TAB PO (08:22)
[2022-09-16] MEDS: Insulin Aspart 300 UNITS/3 ML PEN SC ×6 (08:23→17:56)
[2022-09-16] MEDS: Diclofenac 1% Gel 100 GM TUBE TP ×4 (08:24→21:41)
--- NOTE | 2022-09-16 09:47 | W.PM.PROGNOT ---
Date of Service Date of service: 09/16/22 Time of Service: 09:47 Assessment and Plan Assessment and plan (1) Colitis due to Clostridium difficile: Start date: 09/09/22 Status: Acute Assessment and plan: C. difficile positive with recent hospitalization. Oral vancomycin and IV Flagyl been discontinued. Continue with Dificid 200 mg p.o. twice daily. Professional time spent interviewing and examining patient, discussion of goals of care with hospital team (care management, nursing and consulting professionals) was 20 minutes. (2) Fever: Status: Acute Assessment and plan: unclear etiology. CT of abdomen and pelvis did not show any abscess or signs of megacolon. Urine and blood cultures from 09/13 are no growth so far. He has been afebrile since the afternoon of 09/13. As we have not found any other infection other than his C difficile colitis which has improved, all parenteral antibiotics were discontinued yesterday. leukocytosis is decreasing down to 14,000 and his CRP is decreasing down to 11.5. We will continue to trend. (3) Thrombosis superficial vein, arm, acute: Status: Acute Assessment and plan: No PE on CTA chest. Left arm is no longer swollen and is nontender. continue to monitor (4) Sinus tachycardia: Status: Acute Assessment and plan: Improving. Patient is now on Toprol-XL 50 mg nightly. I will discontinue telemetry monitoring at this point as he has had no significant arrhythmias. (5) Leukocytosis (leucocytosis): Status: Resolved Assessment and plan: he still has a leukocytosis but will monitor for now. stop antibiotics in setting of lack of infectious source. (6) CKD (chronic kidney disease) stage 4, GFR 15-29 ml/min: Start date: 09/10/22 Status: Chronic Assessment and plan: his ALEJANDRO has resolved. he appears to be at his baseline ( BUN 28, creatinine 2.1) (7) Hyponatremia: Start date: 09/10/22 Status: Acute Assessment and plan: Most likely associated with chronic alcohol use. His sodium levels have fluctuated but generally are 130 to 137. (8) Hypomagnesemia: Start date: 09/10/22 Status: Acute Assessment and plan: improved on supplementation. Mg 2.1 today. (9) Type 1 diabetes mellitus without complications: Assessment and plan: patient on basal bolus insulin with CHO coverage and glucose has improved since addition of mealtime coverage. (glucose 162 to 260 today). (10) Anemia: Status: Chronic Assessment and plan: Most likely secondary to chronic disease and poor nutrition. Stable around 9 gm (11) General weakness: Start date: 09/10/22 Status: Acute Assessment and plan: continue work w/ P.T., may need SNF, has placed referrals, if no acceptance early next week and if [facility].T. does not feel he is safe for home dc w/ home PT then we will swing him here at [facility] for short term rehab stay. (12) Alcohol use disorder: Status: Chronic Assessment and plan: Patient needs stop drinking long-term and prognosis poor for change. During the admission from 09/07 to 09/10/22 he endorsed desire to remain sober. He also now does discuss possible rehabilitation and cessation at hospitalizations but never followed through. We had requested a head wrestling coach consult but they did not visit with the patient d/t his C.Diff + status. . (13) Discharge planning issues: Status: Acute Assessment and plan: Referrals being sent to SNFs., possible swing bed next week vs home w/ [facility] and PT and OT. Subjective Subjective Interval history since last seen: Overall Mina is doing markedly better. He has been afebrile. He denies cough or shortness of breath no abdominal pain nausea or vomiting. Bowel movements are formed now. Knee pain is improving with the Ultram although he feels that higher strength would help better. We can increase Ultram to 100 mg qid. He looks forward to working with physical therapy. Last night his glucose dropped into the 90s at bedtime. He states that this is partly due to his food choices he has been trying to eat a more carbohydrate restrictive diet with eating less breads and pastas. I told him however that major problem is that we had upped his insulin when his glucoses were out of control. I have cut his Lantus down to 40 units at night from 50 units. Have decreased his sliding scale from insulin resistant insulin sensitive. Seems like the major cause of the drop last night was he got a large dose of NovoLog for blood sugar coverage. Got 12 units of NovoLog in addition to his mealtime coverage. I told him I would check with case management physical therapy regarding nursing home facility. Exam Narrative Exam Narrative: Dylan is sitting up in his chair he is alert and oriented person place time circumstance denies any discomfort. Lungs are clear to auscultation Heart is regular rate and rhythm Abdomen is soft and nontender nondistended normal bowel sounds Lower extremities without peripheral cyanosis or edema no calf tenderness. There is no redness over his left arm with previous IV had been. Objective Last Vital Signs Temp 37.1 C 09/16/22 06:30 Pulse 115 H 09/16/22 07:00 Resp 20 09/16/22 06:30 BP 143/89 H 09/16/22 06:30 Pulse Ox 94 09/16/22 06:30 Laboratory Results - last 24 hr 09/15/22 09/16/22 09/16/22 10:30 06:25 06:25 WBC 14.67 H RBC 3.45 L Hgb 9.1 L Hct 28.5 L MCV 83 MCH 26.4 L MCHC 31.9 L RDW 18.2 H Plt Count 530 H MPV 9.5 Immature Gran % See Differential Neutrophils % 73.0 Lymphocytes % 9.0 Monocytes % 5.0 Eosinophils % 11.0 Basophils % 0.0 Metamyelocytes % 2 Nucleated RBC % 0.0 Absolute Neutrophils 10.71 H Absolute Lymphocytes 1.32 Absolute Monocytes 0.73 Absolute Eosinophils 1.61 H Absolute Basophils 0.00 RBC Morphology See Below Polychromasia Present Anisocytosis 2+ Sodium 137 Potassium 5.0 Chloride 104 Carbon Dioxide 20.9 L Anion Gap 12.1 H BUN 30 H Creatinine 1.8 H Est GFR (CKD-EPI 2020) 41.77 Glucose 127 H Calcium 9.3 Total Bilirubin 0.3 AST 20 ALT 32 Alkaline Phosphatase 72 C-Reactive Protein 11.52 H Total Protein 7.5 Albumin 2.3 L Urine Color Yellow Urine Clarity Clear Urine pH 5.0 Ur Specific [place] <= 1.005 Urine Protein 100 H Urine Ketones Negative Urine Blood Negative Urine Nitrite Negative Urine Bilirubin Negative Urine Urobilinogen 0.2 Ur Leukocyte Esterase Negative Urine RBC 0-2 Urine WBC 0-2 Ur Epithelial Cells Negative Urine Crystals Negative Urine Bacteria Negative Urine Casts Negative Urine Mucus Trace Ur Culture Indicated? No Urine Glucose Negative PAWSS Have you Been Recently Intoxicated or Drunk Within the Last 30 days?: Yes Have you Ever Experienced Previous Episodes of Alcohol Withdrawal?: Yes Have you ever Experienced Withdrawal Seizures?: No Have you ever Experienced Delirium Tremens(DT)s?: No Have you ever undergone Alcohol Rehabilitation Treatment (i.e, inpt ot outpatient treatment programs)?: No Have you ever Experienced Blackouts?: Yes Have you ever Combined Alcohol with other Downers within the last 90 days?: No Have you ever Combined Alcohol with any other Substance of Abuse during the last 90 days?: No Positive Blood Alcohol level on Presentation? [PCS.BAL]: Yes Evidence of Increased Autonomic Activity (i.e. HR>120, tremor, sweating, agitation, nausea)?: Yes Result: 5 Time Spent with Patient Time Spent with Patient: <25 minutes Time was spent: preparing to see the patient(eg.review tests), ordering medications,tests, procedures, referring, communicating with other health lead care manager, indepentently interpreting results, counseling the patient and care coordination
[2022-09-16 11:38] VITALS: BP 140/89; PULSE 108; RESP 17; TEMP 36.8; O2SAT 98
[2022-09-16] MEDS: traMADol 50 MG TAB 100 MG PO ×3 (12:38→19:48)
--- NOTE | 2022-09-16 14:53 | CMPROGNOTE_ITS ---
Date of service: 09/16/22 Time of Service: 14:53 Care Management Progress Note Progress Note Text Progress Note Text: S/O: CM coordinated meeting with Jessica of [facility] today, provided activity cart items to Mina for extended hospitalization. He remains inpatient, PT recommending SNF as Mina continues to require assist; referral faxed to [facility]; still pending. PT reports Mina is very motivated to strengthen and progress. CM continues to follow. A: 62 year old male re-admitted to [facility] 09/11/22 for generalized weakness, CKD, dehydration, anion gap acidosis P: Mina is making strides physically and is motivated to progress in strength and mobility. SNF referral pending, CM continues to follow.?
[2022-09-16 15:33] VITALS: BP 148/96; PULSE 114; RESP 18; TEMP 36.8; O2SAT 96
--- NOTE | 2022-09-16 17:33 | PT.INTREAT ---
Date of service: 09/16/22 Time of Service: 12:44 PT Notes Visit Reasons: General weakness,Anion gap acidosis,Dehydration,CK Physical Therapy Inpatient Treatment Note Date: 09/16/2022 Precautions: Fall. Standard. Activity as tolerated. Subjective: Still asking if he has been accepted in a SNF. Continues to report pain in B knees that gets worse after ambulation activity. Objective: General Observation: Seated on bedside chair.? Mental Status: Alert and oriented as to person, place, time, and purpose. Able to pay attention, focus, and respond appropriately. Pain: 4-5/10 in in B knees and in R hand Vital Signs: Closely monitored by nursing staff Bed Mobility/Transfers: Sit to stand from bedside recliner stand by assist using FWW, cues provided to use both hands for support Stand to sit stand by assist, cues provided to use both hands for support Wheelchair to bed stand by assist using FWW Gait: Instructed patient with level surface ambulation of 120? feet + 120 feet requiring conatct guard assist and use of FWW,? wheelchair follow provided.? Priti decreased. Step height decreased. Step length decreased.?Continues to complain of pain in B knees with walking.? Container Washer Machine in B hands significantly improved. THERA EX: Chair push ups x 10 Seated marches x 10 LAQs x 10 Balance: Static Sitting: Normal Dynamic Sitting: Normal Static Standing: Fair Dynamic Standing: Fair ASSESSMENT: Activity tolerance beginning to improve.? Motivated to regain his strength back.? Continue to pre-medicate for pain to minimize B knee pain during sit<>stand movement transitions.? Provided patient with bedside chair with higher set height? to allow for ease of sit<>stand without undue pain. Lives alone and needs to achieve modified independence with all mobility ADLs prior to going home. DISCHARGE RECOMMENDATIONS: [] ? Home with no services [] [] ? Home with services [] ? Home with outpatient PT [] [X] ? SNF for continued rehabilitation.? Will benefit from short-term rehab to maximize strength,? balance,? and mobility gains in anticipation of return to home alone. [] ? [facility] [] [] ? SNF versus LTC based on ability to participate and progress [] TREATMENT CODE/TIME: 64444 x 29 minutes beginning at 12:44 PM.
[2022-09-16] MEDS: Acetaminophen 325 MG TAB PO (19:48)
[2022-09-16] MEDS: Atorvastatin 20 MG TAB PO (19:49)
[2022-09-16] MEDS: Gabapentin 300 MG CAP PO (19:49)
[2022-09-16 19:57] VITALS: BP 129/83; PULSE 112; RESP 18; TEMP 36.6; O2SAT 96
[2022-09-16] MEDS: Metoprolol CR 50 MG TABCR PO (21:00)
[2022-09-16] MEDS: Insulin Glargine 300 UNITS/3 ML PEN 40 UNITS SC (22:48)
[2022-09-17 06:23] LABS: Abs Immature Grans 0.78 10^3/uL (0.0-0.06); HCT 28.5 % (40.0-50.0); HGB 9.1 g/dL (13.5-17.5); MCH 26.2 pg (27.0-33.0); MCHC 31.9 % (32.0-36.0); MCV 82 fL (80-95); MPV 8.9 fL (8.0-11.0); RBC 3.47 10^6/uL (4.36-5.78); RDW 17.8 % (11.8-14.1); RDW-SD 53.3 fL; WBC 13.17 10^3/uL (4.4-10.8)
[2022-09-17 06:42] LABS: BUN 34 mg/dL (7-18); CREATININE 1.9 mg/dL (0.70-1.30); Calcium 9.2 mg/dL (8.5-10.1); Chloride 105 mmol/L (98-107); Estimated GFR 39.15 (mL/min/1.73m2); Glucose 107 mg/dL (74-106); Potassium 4.9 mmol/L (3.5-5.1); Sodium 138 mmol/L (136-145)
[2022-09-17 06:47] LABS: C-Reactive Protein 7.23 mg/dL (0.0-0.3)
[2022-09-17 06:52] LABS: Absolute Basophil Count 0.13 10^3/uL (0.0-0.2); Absolute Eosinophil Count 0.79 10^3/uL (0.0-0.7); Absolute Lymphocyte Count 1.32 10^3/uL (1.2-3.4); Absolute Monocyte Count 0.53 10^3/uL (0.1-0.8); Absolute Neutrophil Count 10.01 10^3/uL (1.2-6.7); Bands % 1; Diff Comment Manual Differential; Myelocytes % 3; Platelet Count 544 10^3/uL (130-400)
[2022-09-17 06:53] LABS: Anisocytosis 1+
[2022-09-17 07:52] VITALS: BP 137/90; PULSE 109; RESP 18; TEMP 36; O2SAT 94
[2022-09-17] MEDS: Thiamine 100 MG TAB PO (08:03)
[2022-09-17] MEDS: Fidaxomicin 200 MG TAB PO ×2 (08:03→20:39)
[2022-09-17] MEDS: Multivitamin TAB 1 TAB PO (08:03)
[2022-09-17] MEDS: Magnesium Oxide 400 MG TAB 800 MG PO ×2 (08:03→20:39)
[2022-09-17] MEDS: Folic Acid 1 MG TAB PO (08:03)
[2022-09-17] MEDS: DULoxetine 30 MG CAP 60 MG PO (08:03)
[2022-09-17] MEDS: Enoxaparin 40 MG/0.4 ML SYR SC (08:04)
[2022-09-17] MEDS: traMADol 50 MG TAB 100 MG PO ×4 (08:04→20:40)
[2022-09-17] MEDS: Psyllium PKT 1 EACH PO ×2 (08:04→14:36)
[2022-09-17] MEDS: Diclofenac 1% Gel 100 GM TUBE TP ×4 (08:04→20:40)
[2022-09-17] MEDS: Insulin Aspart 300 UNITS/3 ML PEN SC ×5 (08:05→17:21)
--- NOTE | 2022-09-17 12:06 | PT.INTREAT ---
Date of service: 09/17/22 Time of Service: 07:55 PT Notes Visit Reasons: General weakness,Anion gap acidosis,Dehydration,CK Inpatient Physical Therapy Treatment Note [facility] Date: 09/17/2022 PRECAUTIONS:Standard, Contact, activities as tolerated SUBJECTIVE: Stated his knees bother when he walks. Right hand is still bothersome but doing better recently with OT. OBJECTIVE: PAIN: Bilateral knee pain with walking making them worse. Right hand irritation, but indicated it did not bother when using walker today. BED MOBILITY/TRANSFERS Up in recliner when I arrived to room today. GAIT Assistive Device: FWW Weight bearing: Full Assist: CGA Distance: 120ft and 80ft, with w/c follow THERA EX: Chair push ups x 10 Seated marches x 10 LAQs x 10 Seated hip abd/ adduction x 10 UE shoulder abd/ adduction x 12 Chair alarm reset at conclusion of session. ASSESSMENT: Did well with ambulation despite complaints of knee pain. PLAN: Continue to focus on improved functional mobility and strengthening, as able to tolerate. TREATMENT CODE/TIME: 81458/ 85811, 7:55-8:05 (TP) and 8:35-8:50 (TA)
--- NOTE | 2022-09-17 15:16 | PT.INTREAT ---
PT Notes Visit Reasons: General weakness,Anion gap acidosis,Dehydration,CK Inpatient Physical Therapy Treatment Note [facility] Date: 09/17/22 SUBJECTIVE: Mina states that he is awaiting an interview from [facility] and was told not to venture too far from room. He is agreeable to bed exercise and sit in recliner. OBJECTIVE: [] BED MOBILITY/TRANSFERS Rolling L/R: I Supine-sit: S Sit-stand: SBA Stand-sit:SBA GAIT Assistive Device: FWW Weight bearing: AT Assist: CGA Distance: 5' THEREX: chair push ups x10 LAQ 2x10 seated may x12 hip abd/add x10 ASSESSMENT: tolerated ex well. Making progress per subjective report. No LOB with transfers from bed to chair. PLAN: will continue to progress strength and functional mobility as he is able to tolerate. TREATMENT CODE/TIME: 12 min. [id number]
[2022-09-17 15:36] VITALS: BP 130/89; PULSE 106; RESP 18; TEMP 36.1; O2SAT 96
--- NOTE | 2022-09-17 16:03 | PGE_ITS ---
Date of Service Date of service: 09/17/22 Time of Service: 16:03 Assessment and Plan Assessment and plan (1) Colitis due to Clostridium difficile: Start date: 09/09/22 Status: Acute Assessment and plan: Clinically improving on PO dificid. Continue dificid. Ensure the patient has probiotics. (2) Thrombosis superficial vein, arm, acute: Status: Acute Assessment and plan: Warm compresses and elevate extremity. I would consider repeating the study to ensure the clot has not extended. He is not on anticoagulation. Continue DVT ppx with enoxaparin for now. (3) Sinus tachycardia: Status: Acute Assessment and plan: Continue toprol XL. (4) Fever: Status: Resolved Assessment and plan: I suspect this was due to the thrombosis. The patient has defervesced and his WBC has been improving. No further septic workup is indicated. (5) Leukocytosis (leucocytosis): Status: Acute Assessment and plan: As above. This is improving. (6) CKD (chronic kidney disease) stage 4, GFR 15-29 ml/min: Start date: 09/10/22 Status: Chronic Assessment and plan: ALEJANDRO resolved. Now at baseline. Continue to monitor. (7) Hyponatremia: Start date: 09/10/22 Status: Acute Assessment and plan: Sodium is even better today at 138. Agree that this is likely related to EtOH use at home. No further workup. (8) Hypomagnesemia: Start date: 09/10/22 Status: Acute Assessment and plan: Recheck in am. (9) Type 1 diabetes mellitus without complications: Assessment and plan: w/ neuropathy. Continue current doses of basal bolus insulin. Increase neurontin done. (10) Anemia: Status: Chronic Assessment and plan: Has evidence of B12 deficiency. Replete. (11) General weakness: Start date: 09/10/22 Status: Acute Assessment and plan: Continue PT. Anticipate discharge to SNF. (12) Alcohol use disorder: Status: Chronic Assessment and plan: No evidence of w/d on this admission. Continue PO thiamine, MVI. (13) DVT prophylaxis: Status: Acute Assessment and plan: SC enoxaparin. (14) Discharge planning issues: Status: Acute Assessment and plan: Anticipate discharge to SNF as early as tomorrow. Full code. Subjective Subjective Interval history since last seen: Mr Pablo feels well today. His only complaint is his posterior burning leg pain, especially so behind his left knee. Otherwise, he states he only had one BM today and it was formed. Denies dizziness, CP, SOB, n/v. He is awaiting a meeting with [facility]. Exam Narrative Exam Narrative: General: Pleasant middle-aged male who is sitting up in a chair, A&Ox3, NAD HEENT: EOMI, MMM Heart: RRR, no m/r/g Lungs: CTAB Abdomen: soft, nontender, nondistended Extremities: no edema BUE/BLEs. LUE is not edematous. Objective Last Vital Signs Temp 36.1 C L 09/17/22 15:36 Pulse 106 H 09/17/22 15:36 Resp 18 09/17/22 15:36 BP 130/89 09/17/22 15:36 Pulse Ox 96 09/17/22 15:36 Laboratory Results - last 24 hr 09/17/22 09/17/22 09/17/22 06:08 06:08 06:08 WBC 13.17 H RBC 3.47 L Hgb 9.1 L Hct 28.5 L MCV 82 MCH 26.2 L MCHC 31.9 L RDW 17.8 H Plt Count 544 H MPV 8.9 Immature Gran % See Differential Neutrophils % 75.0 Band Neutrophils % 1 Lymphocytes % 10.0 Monocytes % 4.0 Eosinophils % 6.0 Basophils % 1.0 Myelocytes % 3 Nucleated RBC % 0.0 Absolute Neutrophils 10.01 H Absolute Lymphocytes 1.32 Absolute Monocytes 0.53 Absolute Eosinophils 0.79 H Absolute Basophils 0.13 RBC Morphology See Below Anisocytosis 1+ Sodium 138 Potassium 4.9 Chloride 105 Carbon Dioxide 23.0 Anion Gap 10.0 BUN 34 H Creatinine 1.9 H Est GFR (CKD-EPI 2020) 39.15 Glucose 107 H Calcium 9.2 C-Reactive Protein 7.23 H PAWSS Have you Been Recently Intoxicated or Drunk Within the Last 30 days?: Yes Have you Ever Experienced Previous Episodes of Alcohol Withdrawal?: Yes Have you ever Experienced Withdrawal Seizures?: No Have you ever Experienced Delirium Tremens(DT)s?: No Have you ever undergone Alcohol Rehabilitation Treatment (i.e, inpt ot outpatient treatment programs)?: No Have you ever Experienced Blackouts?: Yes Have you ever Combined Alcohol with other Downers within the last 90 days?: No Have you ever Combined Alcohol with any other Substance of Abuse during the last 90 days?: No Positive Blood Alcohol level on Presentation? [PCS.BAL]: Yes Evidence of Increased Autonomic Activity (i.e. HR>120, tremor, sweating, agitation, nausea)?: Yes Result: 5 Time Spent with Patient Time Spent with Patient: 25-34 minutes Time was spent: preparing to see the patient(eg.review tests), obtaining and/or reviewing separately otained hiistory, ordering medications,tests, procedures, referring, communicating with other health acute care nurse, indepentently interpreting results, counseling the patient and care coordination
[2022-09-17] MEDS: Gabapentin 100 MG CAP PO (16:16)
[2022-09-17] MEDS: Cyanocobalamin 1000 MCG/ML VIAL IM (17:27)
[2022-09-17] MEDS: Metoprolol CR 50 MG TABCR PO (20:39)
[2022-09-17] MEDS: Gabapentin 300 MG CAP PO (20:40)
[2022-09-17] MEDS: Atorvastatin 20 MG TAB PO (20:40)
[2022-09-17] MEDS: Insulin Glargine 300 UNITS/3 ML PEN 40 UNITS SC (20:41)
[2022-09-17 22:50] VITALS: BP 128/84; PULSE 102; RESP 18; TEMP 36.1; O2SAT 97
[2022-09-18 06:42] LABS: Abs Immature Grans 0.73 10^3/uL (0.0-0.06); Absolute Eosinophil Count 0.76 10^3/uL (0.0-0.7); Absolute Monocyte Count 0.82 10^3/uL (0.1-0.8); Basophils % 0.8; Eosinophils % 5.3; HCT 30.2 % (40.0-50.0); HGB 9.5 g/dL (13.5-17.5); Immature Grans % 5.1; MCH 26.3 pg (27.0-33.0); MCHC 31.5 % (32.0-36.0); MCV 84 fL (80-95); MPV 8.7 fL (8.0-11.0); Monocytes % 5.7; Neutrophils % 65.1; Platelet Count 624 10^3/uL (130-400); RBC 3.61 10^6/uL (4.36-5.78); RDW 17.9 % (11.8-14.1); RDW-SD 55.1 fL; WBC 14.35 10^3/uL (4.4-10.8)
[2022-09-18 06:47] LABS: Absolute Basophil Count 0.11 10^3/uL (0.0-0.2); Absolute Lymphocyte Count 2.58 10^3/uL (1.2-3.4); Absolute Neutrophil Count 9.34 10^3/uL (1.2-6.7)
[2022-09-18 07:14] LABS: Anion Gap 11.1 mmol/L (3-11); BUN 41 mg/dL (7-18); C-Reactive Protein 5.22 mg/dL (0.0-0.3); CO2 23.9 mmol/L (21.0-32.0); CREATININE 1.9 mg/dL (0.70-1.30); Calcium 9.5 mg/dL (8.5-10.1); Chloride 104 mmol/L (98-107); Estimated GFR 39.15 (mL/min/1.73m2); Glucose 115 mg/dL (74-106); Potassium 5.1 mmol/L (3.5-5.1); Sodium 139 mmol/L (136-145)
--- NOTE | 2022-09-18 07:20 | OTTR_ITS ---
Date of service: 09/17/22 Time of Service: 08:50 Occupational Therapy Notes Date: 09/17/22 PRECAUTIONS: Fall, Standard, Full SUBJECTIVE:?Pt was sitting in chair when OT arrived. He states that he feels that his hand is improving. He still has stiffness in his MPs but was able to hold his silverware to eat his breakfast this morning. OBJECTIVE:? PAIN:c/o of pain in MP joints and into the dorsal wrist and hand. Manual Therapy [id number]: OT assessed pts edema which remains remarkable at this time. OT performed AP mobs at pts digits and wrist which was sore at the MPs and wrist. Then OT educated and trained pt in contrast baths and he performed this this morning which he tolerated well. Functionally he had improved mobility of his digits post application. OT and pt discuss the importance of performing this throughout the weekend and OT will? monitor pts response and progress accordingly. ? ASSESSMENT/PLAN:? Pt tolerated contrast baths well. Updated plan is on pts board on what he should be doing daily for edema management. He understands this and is going to speak with nursing to (A) him with set up/clean up. This is the updated plan below- * Hand should be elevated on pillow or above heart at all times * Contrast baths should be performed 2x per day morning and night * Ice as needed * Hand above head every hour 20x * Retrograde massage to help with comfort and edema in digits with elbow supported on table and massaging towards elbow from distal fingers * ROM of individual digits to be performed every hour?? * Keep fingers moving throughout the day and use (R) UE as much as possible for ADLs. ? TREATMENT CODES/TIME:?15045, 10 minutes Tanya Baron OTR/L [facility] [place], [place] ?
[2022-09-18 07:25] VITALS: BP 125/88; PULSE 111; RESP 20; TEMP 36.8; O2SAT 94
[2022-09-18] MEDS: Thiamine 100 MG TAB PO (07:40)
[2022-09-18] MEDS: Psyllium PKT 1 EACH PO ×2 (07:40→14:22)
[2022-09-18] MEDS: DULoxetine 30 MG CAP 60 MG PO (07:40)
[2022-09-18] MEDS: Gabapentin 100 MG CAP PO ×2 (07:41→14:22)
[2022-09-18] MEDS: Fidaxomicin 200 MG TAB PO (07:41)
[2022-09-18] MEDS: Multivitamin TAB 1 TAB PO (07:41)
[2022-09-18] MEDS: Cyanocobalamin 500 MCG TAB 1000 MCG PO (07:41)
[2022-09-18] MEDS: traMADol 50 MG TAB 100 MG PO ×2 (07:42→11:48)
[2022-09-18] MEDS: Enoxaparin 40 MG/0.4 ML SYR SC (07:42)
[2022-09-18] MEDS: Magnesium Oxide 400 MG TAB PO (07:42)
[2022-09-18] MEDS: Diclofenac 1% Gel 100 GM TUBE TP ×2 (07:43→11:48)
[2022-09-18 08:02] LABS: Anisocytosis 2+; Diff Comment Diff Reviewed
[2022-09-18] MEDS: Insulin Aspart 300 UNITS/3 ML PEN SC ×3 (08:42→12:54)
--- NOTE | 2022-09-18 09:23 | INPN_ITS ---
PT Notes Visit Reasons: General weakness,Anion gap acidosis,Dehydration,CK Inpatient Physical Therapy Progress Note Date: 09/18/22 Dates of Service: 09/11-09/18/22 PRECAUTIONS: Fall. Standard. Activity as tolerated. Contact precautions. SUBJECTIVE: Mina is agreeable to PT this morning. He reports ROM of right ankle has been getting better. Continues to have hard time standing from low surface. OBJECTIVE PAIN: Left knee and posterior leg, no pain rating given ROM: Right Upper Extremity: ?Shoulder Flexion WFL. Shoulder abduction WFL. Elbow flexion WFL. Elbow extension lacking 15 degrees. Wrist flexion WFL. Functional opening and closing of hand impaired. Left Upper Extremity:? Shoulder Flexion WFL. Shoulder abduction WFL. Elbow flexion WFL. Elbow extension WFL. Wrist flexion WFL. Functional opening and closing of hand impaired. Right Lower Extremity: Hip flexion lacks the last 25% of AROM. Hip abduction WFL. Knee flexion 100 degrees.? Knee extension -20 degrees.? Ankle dorsiflexion beyond neutral. Ankle plantarflexion WFL. Left Lower Extremity:?Hip flexion lacks the last 25% of AROM. Hip abduction WFL. Knee flexion to 90 degrees.? Knee extension -20 degrees.? Ankle dorsiflexion to neutral only. Ankle plantarflexion WFL. Strength: Right Upper Extremity: Shoulder flexors 5/5. Shoulder abductors 5/5. Elbow flexors 5/5. Elbow extensors 4-/5. Leader Assembler weak and minimally functional. Left Upper Extremity: Shoulder flexors 5/5. Shoulder abductors 5/5. Elbow flexors 5/5. Elbow extensors 4-/5. Leader Assembler weak and minimally functional. Right Lower Extremity: Hip flexors 5/5. Hip abductors 4/5. Knee flexors 5/5. Knee extensors 5/5. Ankle dorsiflexors 3-/5. Ankle plantarflexors 4-/5. Left Lower Extremity: Hip flexors 5/5. Hip abductors 4/5. Knee flexors 3-/5. Knee extensors 5/5. Ankle dorsiflexors 3-/5. Ankle plantarflexors 4-/5. BED MOBILITY/TRANSFERS Rolling L/R: Independent Supine-sit: Independent Sit-supine: Independent Sit-stand: Supervision Stand-sit: Independent GAIT Assistive Device: FWW Weight bearing: Full Assist: Supervision Distance: 10ft in room Deviation: Lack of knee and hip extension THEREX: Sit to stand Arm push up from chair Wall push up STAIRS: Not assessed Mobility Limitations Standardized Measure [facility] 6 clicks Basic Mobility Inpatient Short Form: Raw Score: 19 ? CMS Score: 41% deficit? ? ? ASSESSMENT: Patient is demonstrating progress in upper and lower extremity strength. His knee extension ROM is improved, but remains limited bilaterally. Reports still hard to get up from lower surfaces. Motivated to be building strength and wants to do more exercises with weight. Pain in left knee and posterior leg is a limiting factor in mobility. Seems to have probable left knee OA and pain in soft tissue, possibly hamstrings. Patient left sitting in chair with chair alarm on and call light in reach. Patient presents with clinical signs and symptoms consistent with current/admitting diagnoses that have resulted to mobility limitations, gait instability, generalized weakness, and overall ADL decline as demonstrated by the following impairment level findings: 1.? Decreased strength to B UE/LE major muscle groups 2.? Impaired standing balance 3.? Impaired activity tolerance 4.? Limitation of joint range of motion in R hand and bilateral knees 5.? Shortness of breath 6.? Weak regrinder operator and grasp on B sides Impairments are contributing to the following functional limitations: 1.? Decline in bed mobility skills 2.? Decline in transfer skills 3.? Difficulty with ambulation without assistive device and physical assistance 4.? Increased completion time for mobility ADL performance 5.? Increased risk for falls 6.? Difficulty with managing steps alone safely Goals: Goals X1 week 1. Supine-Sit independent: Goal met 2. Sit-Supine independent: Goal met 3. Sit-Stand independent: Supervision 4. Stand-Sit independent with FWW: Goal met 5. Bed-Chair independent with FWW: Supervision 6. Chair-Bed independent with FWW: Supervision 7. Independent gait on level surface with use of?FWW for at least 300 feet without report of pain nor dyspnea: Has done up to 200 ft x2 with FWW, W/C fol low, but had significant leg pain later in day 8. Independent stair negotiation while holding onto B rails for at least 3 steps without report of pain nor dyspnea: Not assessed or trialed yet 9. Independent with home exercise program: Progressing 10. Good static and dynamic standing balance/tolerance: Progressing Plan of Care/Treatment Plan: 1-2x/day, 7 days/week x 1 week. Plan of care has been reviewed with the CLOTH DOUBLING MACHINE OPERATOR providing the service under Physical Therapy direction. Initiate Physical Therapy intervention for pain management as needed, strengthening, bed mobility, transfers, gait, stairs, balance training, and use of assistive device. DISCHARGE RECOMMENDATIONS: SNF for continued rehabilitation.? Will benefit from short-term rehab to maximize strength,? balance,? and mobility gains in anticipation of return to home alone. TREATMENT CODE/TIME: 8:59-9:40 (31 minutes direct) [id number] Ankita Whitfield, PT, DPT, OCS [facility] [place], [place]
--- NOTE | 2022-09-18 10:12 | PDOC.CMPRO ---
Date of service: 09/18/22 Time of Service: 10:13 Care Management Progress Note Progress Note Text Progress Note Text: S/O: A: 62 year old male re-admitted to [facility] 09/11/22 for generalized weakness, CKD, dehydration, anion gap acidosis P: Mina is making strides physically and is motivated to progress in strength and mobility. SNF referral pending, CM continues to follow.?
--- NOTE | 2022-09-18 13:54 | W.PM.DS.N ---
Date of service: 09/18/22 Time of Service: 13:54 DS: Diagnosis Discharge Diagnosis (1) Colitis due to Clostridium difficile: Status: Acute (2) Thrombosis superficial vein, arm, acute: Status: Acute (3) Sinus tachycardia: Status: Acute (4) Fever: Status: Resolved (5) Leukocytosis (leucocytosis): Status: Acute (6) CKD (chronic kidney disease) stage 4, GFR 15-29 ml/min: Status: Chronic (7) Hyponatremia: Status: Resolved (8) Hypomagnesemia: Status: Resolved (9) Type 1 diabetes mellitus without complications: (10) Anemia: Status: Chronic (11) General weakness: Status: Acute (12) Alcohol use disorder: Status: Chronic (13) Acute dehydration: Status: Resolved (14) Increased anion gap metabolic acidosis: Status: Resolved (15) B12 deficiency: Status: Acute Discharge Plan Disposition Patient Disposition: Detention Facility(SNF) Condition: Improving Discharge Details Reason For Visit: General weakness,Anion gap acidosis,Dehydration,CK Admit Date/Time: 09/11/22 07:16 Admit Provider: Sean Patterson Attending Provider: Sean Patterson Primary Care Provider: Mel Llamas Hospital Course Hospital Course: Mr Pablo is a 62 year old male with PMHx of recently diagnosed C.Diff infection, as well as h/o IDDM, CKD4, hypertension, who was admitted to [facility] hospitalist service on 09/11/22 after being discharged home on 09/10/22 after an admission for C. Diff colitis and alcohol withdrawal. Unfortunately, his insurance did not cover dificid, but he was prescribed oral vancomycin, and it is not clear if he had a chance to pick it up. The patient had presented this time with generalized weakness, dehydration, evidence of anion gap metabolic acidosis (but not DKA - likely, alcoholic ketoacidosis), hypokalemia, hypomagnesemia. He was weak to the point that he had a hard time getting out of bed and taking care of himself. He still had diarrhea, though it had improved. He was resumed on dificid in addition to IV flagyl and PO vanco. He was hydrated intravenously. He was downgraded to dificid alone on 09/15/22. He will need to finish his course of dificid on 09/20/22 and he will receive the remaining doses on discharge to [facility]. He did not have evidence of EtOH withdrawal on this admission. He improved steadily on above antibiotic therapy, but on 09/15/22 was noted to have worsening of his leucocytosis. His workup revealed a thrombosis of his L cephalic vein. His CXR, UA, blood cultures were all negative. He did not have evidence of a colonic complication from C.Diff and did not have a PE. He was started on warm compresses and elevation of his LUE for his thrombosis. He is being [facility] to [facility] today as recommended by physical therapy as he still does require 1 assist to ambulate. He does have evidence of neuropathic pain in his LLE for which his gabapentin was increased. He has evidence of B12 deficiency, which is being repleted. He will need to have his CBC, BMP, and magnesium rechecked in 1 week (09/25/22). He is medically stable for discharge. Care for patient in addition to completion of his discharge summary on day of discharge took 45 minutes. Home Meds and New Rx's Prescriptions: New cyanocobalamin (vitamin B-12) [Vitamin B-12] 500 mcg Tablet 1,000 mcg PO DAILY Qty: 30 0RF gabapentin 100 mg Capsule 100 mg PO BID@0800,1400 Qty: 0 0RF Dificid 200 mg Tablet 200 mg PO BID Qty: 0 0RF diclofenac sodium 1 % Gel 4 g topical QID Qty: 0 0RF Rx Instructions: apply to both knees QID magnesium oxide 400 mg (241.3 mg magnesium) Tablet 400 mg PO BID Qty: 0 0RF Metamucil Sugar-Free (aspart) 3.4 gram/5.8 gram Powder 1 ea PO TID Qty: 0 0RF L. Acidophilus,Casei,Rhamnosus [Bio-K Plus] 1 cap PO DAILY Qty: 0 0RF tramadol 50 mg Tablet 50 - 100 mg PO QID Qty: 0 0RF Continued (DME) lancets Misc See Rx Instructions .MEDSUPPLY Rx Instructions: As directed to check blood glucose four times daily. On insulin. Dispense covered brand. duloxetine 60 mg capsule,delayed release(DR/EC) See Rx Instructions .ROUTE .COMPLEX Qty: 90 3RF Dose Instruction: TAKE 1 CAPSULE BY MOUTH EVERY MORNING Rx Instructions: TAKE 1 CAPSULE BY MOUTH EVERY MORNING Trulicity 0.75 mg/0.5 mL pen injector See Rx Instructions .ROUTE .COMPLEX Qty: 6 0RF Dose Instruction: INJECT 0.5ML UNDER THE SKIN ONCE WEEKLY Rx Instructions: INJECT 0.5ML UNDER THE SKIN ONCE WEEKLY naproxen 375 mg tablet,delayed release (DR/EC) 375 mg PO .with dinner Qty: 14 0RF Rx Instructions: Post-op pain (DME) OneTouch Verio test strips Strip See Rx Instructions .ROUTE .COMPLEX Qty: 400 0RF Dose Instruction: USE TO TEST BLOOD GLUCOSE FOUR TIMES DAILY Rx Instructions: USE TO TEST BLOOD GLUCOSE FOUR TIMES DAILY chlorthalidone 15 mg tablet 7.5 mg PO DAILY Patient Comments: 05/29/21 visit lisinopril 2.5 mg tablet 2.5 mg PO DAILY Patient Comments: 05/29/21 office visit baking soda PO Rx Instructions: 1/2 teaspoon per day due to metabolic acidosis atorvastatin 20 mg tablet See Rx Instructions .ROUTE .COMPLEX Qty: 90 3RF Dose Instruction: TAKE 1 TABLET BY MOUTH EVERY NIGHT AT BEDTIME FOR CHOLESTEROL OR DIABETES Rx Instructions: TAKE 1 TABLET BY MOUTH EVERY NIGHT AT BEDTIME FOR CHOLESTEROL OR DIABETES (DME) pen needle, diabetic [BD Ultra-Fine Doreen Pen Needle] 32 gauge x 5/32 needle See Rx Instructions .ROUTE .MEDSUPPLY Qty: 360 3RF Rx Instructions: BD Ultrafine 32G X 6mm, 4x/day for goal A1C<7 for E10.9 gabapentin 300 mg capsule See Rx Instructions .ROUTE .COMPLEX Qty: 90 0RF Dose Instruction: TAKE 1 CAPSULE BY MOUTH AT BEDTIME NEEDED FOR NERVE PAIN INLEGS Rx Instructions: TAKE 1 CAPSULE BY MOUTH AT BEDTIME NEEDED FOR NERVE PAIN INLEGS (DME) Dexcom G7 Card Tender Misc See Rx Instructions .ROUTE Qty: 1 0RF Rx Instructions: As directed (DME) Dexcom G7 Sensor Device See Rx Instructions .ROUTE Qty: 1 0RF Rx Instructions: As directed multivitamin [Multiple Vitamins] Tablet 1 tab PO QAM Qty: 0 0RF thiamine mononitrate (vit B1) [Vitamin B-1 (mononitrate)] 100 mg Tablet 100 mg PO QAM Qty: 0 0RF Changed metoprolol succinate 25 mg tablet extended release 24 hr 50 mg PO HS Qty: 90 3RF insulin glargine [Lantus Solostar U-100 Insulin] 100 unit/mL (3 mL) insulin pen 40 unit subcut HS MDD 46 units daily Qty: 45 3RF Rx Instructions: DMT1 Discontinued acetaminophen [Tylenol] 325 mg tablet 975 mg PO ONCE PRN insulin lispro [Humalog KwikPen Insulin] 100 unit/mL insulin pen 12 - 15 unit subcut TID PRN Patient Comments: 03/06/20 PER PT, SLIDING SCALE - MINIMUM OF 12U Rx Instructions: tid with meals per sliding to keep AIC below 7.0 propranolol 20 mg Tablet 20 mg PO BID Qty: 10 0RF vancomycin 125 mg capsule 125 mg PO QID Qty: 40 0RF Discharge Instructions Instructions: C. Diff (Clostridioides Difficile) Infection (DC), Fidaxomicin (By mouth), Superficial Thrombophlebitis (DC) Additional Instructions: Finish dificid on 09/20/22. Return to the hospital with any fever, bleeding, chest pain, or shortness of breath. Stand Alone Forms: Nursing Discharge Form Referrals: Mel Llamas TRIMMING MACHINE OPERATOR [Primary Care Provider] - (Follow up per DC from [facility] ) Activity:: Activity as Tolerated Equipment/Supplies:: No Equipment Needed Diet:: As Tolerated Discharge Orders Discharge Orders: Discharge Order (Routine); Ordered 09/18/22 Ordered By: Michelle iVdes DS: Summary Time Spent with Patient providing and/or coordinating discharge services: Greater than 30 minutes Status at Discharge Functional status at discharge: uses cane/walker Overall status at discharge: patient is progressing back to baseline Mental Status: mental status grossly normal Speech and Movement: speech and movement normal Mood: congruent mood Affect: normal affect Exam Narrative Exam Narrative: General: Pleasant middle-aged male who is sitting up in a chair, A&Ox3, NAD HEENT: EOMI, MMM Heart: RRR, no m/r/g Lungs: CTAB Abdomen: soft, nontender, nondistended Extremities: no edema BUE/BLEs. LUE is not edematous. Psych Mental Status: mental status grossly normal Speech and Movement: speech and movement normal Mood: congruent mood Affect: normal affect DS: Data Vitals/I&O Vitals and I&O: Vital Signs Temperature 36.8 C 09/18/22 07:25 Temperature Source Tympanic 09/18/22 07:25 Pulse 111 H 09/18/22 07:25 Pulse Rhythm Regular 09/18/22 08:00 Pulse 107 H 09/10/22 23:15 Respiratory Rate 20 09/18/22 07:25 Respiratory Effort Normal, Non-Labored 09/18/22 08:00 Respiratory Depth Normal 09/18/22 08:00 Respiratory Pattern Normal 09/18/22 08:00 Blood Pressure 125/88 09/18/22 07:25 Blood Pressure Mean 76 09/10/22 23:15 Blood Pressure Position Supine 09/10/22 20:29 Pulse Oximetry 94 09/18/22 07:25 Oxygen Delivery Method Room Air 09/18/22 07:25 Oxygen Flow Rate 0 09/18/22 07:25 Pain Level 0 09/17/22 22:50 Comment RN notified. 09/14/22 15:05 Intake & Output 09/17/22 09/18/22 09/18/22 23:59 11:59 23:59 Intake Total 240 / 730 Output Total 350 / 1050 1900 / 1900 Balance -110 / -320 -1900 / -1900 Intake: Oral 240 / 730 Output: Urine 350 / 1050 1300 / 1300 Stool 600 / 600 Other: Urine Color Yellow Yellow Urine Appearance Clear Clear Urine Odor Normal Stool Size Large Stool Characteristics Soft Formed Voiding Methods Urinal Urinal Data Completed and Pending Completed studies during hospitalization [Text1]: CT head 09/10/22; No acute intracranial findings on this noninfused CT scan of the brain. Vascular calcifications at the the skull base described above, implying atherosclerotic involvement of these vessels. CXR 09/10/22: No acute pulmonary findings on this single AP portable view of the chest. US venous LUE 09/11/22: 1.? Positive study for evidence of intraluminal thrombus within the cephalic vein.? Upper aspect of the 13 cm thrombus is at the mid upper arm. 2.? Rumsey intraluminal thrombus is noted in the medial cubital vein at the elbow level. 3.? Other veins of the upper extremity including the base iliac and brachial veins are patent as is the axillary and subclavian veins. CXR 09/13/22: No acute pulmonary findings on this single AP portable view of the chest. CTA chest 09/13/22: 1. No evidence of obvious acute pulmonary emboli.? No evidence of pulmonary infarction.No pleural effusions. 2. No intrathoracic adenopathy.? CT abdomen/pelvis 09/13/22: 1. Compared to the prior CT scan of 08/15/2022 there is cholelithiasis again noted but no evidence of acute cholecystitis nor dilatation of the biliary tree. 2. Again noted is evidence of right nephrectomy and right adrenalectomy.? Small densities in the renal bed are unchanged.? No gross lymphadenopathy.? No new significant findings in the opposite-left kidney. 3. Appendix diameter is upper normal measuring 7-8 mm and the appendix contains some calcified material within its lumen.? There is, however, no periappendiceal streaking. 4. Urinary bladder wall is uniformly thickened, similar to previous.? Probably related to cystitis or chronic bladder outlet obstruction in this patient who has an enlarged prostate gland. Labs on day of discharge: Labs from last 24 hours 09/18/22 09/18/22 06:30 06:30 WBC 14.35 H RBC 3.61 L Hgb 9.5 L Hct 30.2 L MCV 84 MCH 26.3 L MCHC 31.5 L RDW 17.9 H Plt Count 624 H MPV 8.7 Immature Gran % 5.1 Neutrophils % 65.1 Lymphocytes % 18.0 Monocytes % 5.7 Eosinophils % 5.3 Basophils % 0.8 Nucleated RBC % 0.0 Absolute Neutrophils 9.34 H Absolute Lymphocytes 2.58 Absolute Monocytes 0.82 H Absolute Eosinophils 0.76 H Absolute Basophils 0.11 RBC Morphology See Below Anisocytosis 2+ Sodium 139 Potassium 5.1 Chloride 104 Carbon Dioxide 23.9 Anion Gap 11.1 H BUN 41 H Creatinine 1.9 H Est GFR (CKD-EPI 2020) 39.15 Glucose 115 H Calcium 9.5 Magnesium 2.0 C-Reactive Protein 5.22 H Preliminary micro results at discharge 09/13/22 16:20 Blood Culture - Preliminary Blood NO GROWTH 96 HOURS 09/13/22 16:05 Blood Culture - Preliminary Blood NO GROWTH 96 HOURS PFSH All Active Problems (Updated 09/18/22 @ 14:39 by Michelle Vides MD) B12 deficiency (Acute) DVT prophylaxis (Acute) Sinus tachycardia (Acute) Thrombosis superficial vein, arm, acute (Acute) Discharge planning issues (Acute) Anemia (Chronic) Leukocytosis (leucocytosis) (Acute) General weakness (Acute) Gallstones (Acute) Kidney lesion, [place], left (Acute) Microcytic anemia (Acute) Colitis due to Clostridium difficile (Acute) Alcohol use disorder (Chronic) Finger laceration (Acute) Dehiscence of operative wound (Acute) Subsequent encounter Skin ulcer of scrotum (Acute) De Quervain's tenosynovitis, left (Acute) 40 mg Depo-Medrol injection: 04/04/2022 Metabolic acidosis (Acute) Essential hypertension (Acute) CKD (chronic kidney disease) stage 4, GFR 15-29 ml/min (Chronic) Lamellar macular hole of both eyes (Acute 10/25/21) Type 1 diabetes, controlled, with neuropathy (Chronic ~05/2017) Adult onset, diagnosed 05/2017 [facility] Endo Dr. 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 History of alcohol use disorder since 1989 with intermittent sobriety History of elevated PSA Per [place] Records--01/14/2019 6.41, 04/28/2018 6.32; +Fam hx prostate cancer in F History of opioid abuse s/p surgeries; visiting brother 08/2021 ([facility] admission) History of renal cell cancer s/p nephrectomy Hyperkalemia (~05/2021) 05/29/21 [facility] Lesion of bone of left forearm proximal radius lesion Osteoarthritis of elbows, bilateral Polyneuropathy associated with underlying disease DM Solitary left kidney [facility] [place]ph[place] (initial 07/2020); s/p nephrectomy on R 2004 renal cell cancer; partial nephrectomy on L 2007 Tubular adenoma of colon 08/2018 colonoscopy [facility]; recall 5y Type 1 diabetes mellitus without complications Surgical History H/O arthroscopy of knee Remotely--both knees at some point; he cannot recall what, but thinks meniscal H/O partial nephrectomy (~04/2007) left H/O skin graft [facility] 07/12/22 Scrotal Abscess 07/15/22 Skin Graft with Bolster removal History of nephrectomy, right (~03/2004) Renal cell cancer Family History Mother , 54yo breast cancer Alcohol abuse Breast cancer Depression Substance abuse Father , ~70yo prostate cancer Alcohol abuse Prostate cancer Substance abuse Sister , throat caner (nicotine use) Alcohol abuse Cancer Cervical Substance abuse Social History Smoking/Tobacco Use Status: Never Smoking risk assessment performed?: Yes Alcohol Intake: current Alcohol Intake frequency: a few times a month Previous attempts at quittin Counseling given: Yes ([facility]) Drug use: Never Substance use type: opiates Details: no IV drug use Adopted: No Caregiver/Support person: No Foster care: No Household members: other Details: [facility] Living Facility Housing: apartment Number of Children: 4 number of grandchildren: 4 Communication Needs: None Education Level: college Do you need help understanding health information?: Rarely 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) Pets and animals: Yes Pets and animals: cat(s) Sexually active: No Do you think of yourself as: straight/heterosexual Current gender identity: male What is your relationship status?: How often do you talk on the phone with friends or family?: three or more times per week How often do you get together with friends or relatives?: three or more times per week How often do you attend pentecostal or quaker services?: 4 or more times per year Do you belong to any clubs or organized social groups?: no Panel score (0-1 are the most socially isolated patients): 2 What type of physical activity do you participate in: walking, bicycling and other Details: EXERCISE ON STATIONARY BIKE Duration: < 15 minutes/day Frequency: 3-4 times per week Erin/Episcopal: Zoroastrian Agree to transfusion: No Seatbelt use: always Helmet use: Yes Drive intox or ride w/intox motor vehicle escort driver: No Water heater temp set <120 deg: Yes Working smoke detector in home: Yes Fire extinguisher in home: Yes Do you feel safe at home: Yes Do you feel safe in your relationship?: Yes Time Spent with Patient Time Spent with Patient: 45-69 minutes Time was spent: preparing to see the patient(eg.review tests), obtaining and/or reviewing separately otained hiistory, ordering medications,tests, procedures, referring, communicating with other health child care supervisor, indepentently interpreting results, counseling the patient and care coordination
--- NOTE | 2022-09-18 14:07 | PDOC.CMDIS ---
Date of service: 09/18/22 Time of Service: 14:07 LACE Index Scoring Tool Questions: Length of Stay (in days): 7 - 13 Was the patient admitted via the E.D.?: Yes Comorbidities: Diabetes w/o Complication and Liver or Renal Disease E.D. Visits: 4 Answers: Total Score: 17 Risk of Readmission: High Risk Care Management Discharge Plan Reason for Hospitalization: General weakness, anion gap acidosis, dehydration, CKD Discharge Plan: Mina will discharge to [facility] for continued rehab prior to returning home. He expressed motivation at strengthening physically to return home as well as planning for returning home. Motivational interview facilitated Mina identifying challenges, barriers and situations that increase risk of relapse. He identified multiple natural supports including pastors, mandaen community, [facility] management that he meets with weekly and [employer] supports that he texts in the morning and throughout the day. CM inquired to structural differences in environment and schedule with transition from [facility] [place] where Mina resided the last three years compared to now being independent and alone in his own apartment as of 08/31/22. Mina demonstrated much insight on the impact on MAGNO, as well as expressing planning moving forward to fill his time productively (fishing, mentoring, volunteering, exploring connections in the community, etc. When discussing MAGNO modalities Mina expressed that he utilizes a bahai based framework with daily devotionals and pastoral support. Patient/Family Education Needs: Review discharge instructions, prior auth process; insurance coverage and limitations, community based supports, online resources (MAGNO, Social Networking) Services Needed at Discharge: [facility] Facility ([facility] ) and Transportation (Facility W/C Van)
--- NOTE | 2022-09-19 08:49 | OT.INDS ---
Occupational Therapy Notes Occupational Therapy Inpatient Discharge Summary Date: 09/19/22 Dates of Service: 09/12/22-09/19/22 Referring Doctor:Chauncey Torrez MD OT Orders: Non urgent Precautions: Fall, contact, full PATIENT PROFILE/ADMITTING DIAGNOSIS: Pt is a 62 year old male who came into the ED and then went home. He then came back the next day and was admitted to [facility] for the following dx of anemia, hypomagnesemia, leukocytosis, hyponatremia, increased anion gap metabloic acidosis, acute dehydration, general weakness, gallstones, kidney lesion, microcytic anemia, essential HTN. He has decreased (R) UE use of his hand with increased edema and decreased ROM actively. Past Medical History: All Active Problems?(Updated 09/11/22 @ 07:45 by Sean Patterson) Anemia (Chronic) Hypomagnesemia (Acute) Leukocytosis (leucocytosis) (Acute) Hyponatremia (Acute) Increased anion gap metabolic acidosis (Acute) Acute dehydration (Acute) General weakness (Acute) Gallstones (Acute) Kidney lesion, [place], left (Acute) Microcytic anemia (Acute) Colitis due to Clostridium difficile (Acute) Alcohol use disorder (Chronic) Finger laceration (Acute) Post-operative pain (Acute) Dehiscence of operative wound (Acute) Subsequent encounterSkin ulcer of scrotum (Acute) De Quervain's tenosynovitis, left (Acute) 40 mg Depo-Medrol injection: 04/04/2022Metabolic acidosis (Acute) Essential hypertension (Acute) CKD (chronic kidney disease) stage 4, GFR 15-29 ml/min (Chronic) Lamellar macular hole of both eyes (Acute 10/25/21) Type 1 diabetes, controlled, with neuropathy (Chronic ~05/2017) Adult onset, diagnosed 05/[address] [facility] [address] Douglas--recommend GLP1 Personal goal A1C <7%Secondary hyperparathyroidism (Acute ~05/2021) 05/29/21 [facility] Nephrology Elevated PSA (Acute) Family history of prostate cancer (Chronic) FHyperlipidemia (Chronic) Hypertension (Chronic) RX Lisinopril (stopped due to creatinine) Medical History? Alcohol intoxication (~12/02/21) Bilateral carpal tunnel syndrome Carpal tunnel syndrome on both sides +Tinel & Phalens 1Chronic gingivitis, plaque induced DentistHistory of alcohol use disorder since 1989 with intermittent sobrietyHistory of elevated PSA Per [facility] Records--01/14/2019 6.41, 04/28/2018 6.32; +Fam hx prostate cancer in FHistory of opioid abuse s/p surgeries; visiting brother 08/2021 ([facility] admission)History of renal cell cancer s/p nephrectomyHyperkalemia (~05/2021) 05/29/21 [facility] NephrologyLesion of bone of left forearm proximal radius lesionOsteoarthritis of elbows, bilateral Polyneuropathy associated with underlying disease DMSolitary left kidney [facility] Nephro (initial 07/2020); s/p nephrectomy on R 2004 renal cell cancer; partial nephrectomy on L 2007Tubular adenoma of colon 08/2018 [facility]oscopy [facility]; recall 5yType 1 diabetes mellitus without complications Surgical History? H/O arthroscopy of knee Remotely--both knees at some point; he cannot recall what, but thinks meniscalH/O partial nephrectomy (~04/2007) leftH/O skin graft [facility] 07/12/22 Scrotal Abscess 07/15/22 Skin Graft with Bolster removal History of nephrectomy, right (~03/2004) Renal cell cancer Social History/Home Situation: Pt states that he is limited in regards to his functional (I). He notes that he does have HH come in to (A) him at times but he is (R) hand dominant and without use of his (R) UE he is not able to perform his ADLs like he could at his baseline. Equipment owned/DME: unable to assess SUBJECTIVE:? NT OBJECTIVE:? 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 Toileting (I) with toileting EATING seated on side of the bed (I) with use of (R) UE BALANCE: Static sitting Good Dynamic Sitting Good ASSESSMENT:?? Patient is a? 62-year-old male referred to occupational therapy services with diagnosis of anemia, hypomagnesemia, leukocytosis, hyponatremia, increased anion gap metabloic acidosis, acute dehydration, general weakness, gallstones, kidney lesion, microcytic anemia, essential HTN. OT worked with pt on edema management and increased functional use of his (R) UE. Plan was as followed which pt was compliant with: Hand should be elevated on pillow or above heart at all times Contrast baths should be performed 2x per day morning and night Ice as needed Hand above head every hour 20x Retrograde massage to help with comfort and edema in digits with elbow supported on table and massaging towards elbow from distal fingers ROM of individual digits to be performed every hour?? Keep fingers moving throughout the day and use (R) UE as much as possible for ADLs. ?? GOALS 1.? (R) hand- pt will be able to hold items in his (R) hand with functional grasp without pain- met 2.? Dressing- seated (I)-progressing towards 3.? Bathing- seated (I)- met 4.? Toileting- on commode (I)- met 5.? Eating- (I) with (R) UE- met PLAN OF CARE/TREATMENT PLAN: Pt was discharged on 09/18/22 to SNF DISCHARGE RECOMMENDATIONS OT recommends SNF, if pt is not accepted to SNF- OT recommends that he return home with HH vs. Outpatient referral for his (R) UE. TREATMENT TIME/MINUTES/CODES N/A Tanya Baron OTR/L [facility] [place], [place]
--- NOTE | 2022-09-19 09:16 | INDS_ITS ---
Date of service: 09/18/22 Time of Service: 13:55 PT Notes Visit Reasons: General weakness,Anion gap acidosis,Dehydration,CK Physical Therapy Inpatient Discharge Summary Date: 09/18/2022 Dates of Service: 09/11/2022 through 09/18/2022 Referring Doctor: Sean Mar MD PT Orders: PT CONSULT: Eval/treat Precautions: Fall. Standard. Activity as tolerated. Patient Profile/Admitting Diagnosis:? 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 Patient is re-admitted for continued management of EtOH withdrawal, colitis due to C. 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 PMHX: All Active Problems?(Updated 09/10/22 @ 22:19 by Froilan Pratt MD) Increased anion gap metabolic acidosis (Acute) Acute dehydration (Acute) General weakness (Acute) Gallstones (Acute) Kidney lesion, [place], left (Acute) Microcytic anemia (Acute) Colitis due to Clostridium difficile (Acute) Chest pain (Acute) Hypomagnesemia (Acute) Discharge planning issues (Acute) DVT prophylaxis (Acute) Elevated white blood cell count (Acute) Alcohol use disorder (Acute) Finger laceration (Acute) Alcohol withdrawal (Acute) Acute dehydration (Acute) Post-operative pain (Acute) Dehiscence of operative wound (Acute) Subsequent encounter Skin ulcer of scrotum (Acute) De Quervain's tenosynovitis, left (Acute) 40 mg Depo-Medrol injection: 04/04/2022 Metabolic acidosis (Acute) Essential hypertension (Acute) CKD (chronic kidney disease) stage 4, GFR 15-29 ml/min (Acute) Alcohol use disorder, moderate, in early remission (Acute ~12/2021) Antabuse RXLamellar macular hole of both eyes (Acute 10/25/21) Type 1 diabetes, controlled, with neuropathy (Chronic ~05/2017) Adult onset, diagnosed 05/2017 [facility] Endo Dr. Douglas--recommend GLP1 Personal goal A1C <7%Stage 3b chronic kidney disease (CKD) (Chronic) [facility] Nephro initial consult 07/2020; DMT1 & Solitary partial L kidney s/p nephrectomy due to renal cell cancer Secondary hyperparathyroidism (Acute? 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 History of alcohol use disorder since 1989 with intermittent sobriety History of elevated PSA Per [facility] Records--01/14/2019 6.41, 04/28/2018 6.32; +Fam hx prostate cancer in F History of opioid abuse s/p surgeries; visiting brother 08/2021 ([facility] admission) History of renal cell cancer s/p nephrectomyHyperkalemia (~05/2021) 05/29/21 [facility] Nephrology Lesion of bone of left forearm proximal radius lesion Osteoarthritis of elbows, bilateral Polyneuropathy associated with underlying disease DM Solitary left kidney [facility] Nephro (initial 07/2020); s/p nephrectomy on R 2004 renal cell cancer; partial nephrectomy on L 2007 Type 1 diabetes mellitus without complications Surgical History?(Reviewed 09/11/22 @ 10:5 by Rosanna Julian DPT) H/O arthroscopy of knee ? Remotely--both knees at some point; he cannot recall what, but thinks meniscal H/O partial nephrectomy (~04/2007) left H/O skin graft [facility] 07/12/22 Scrotal Abscess 07/15/22 Skin Graft with Bolster removal History of nephrectomy, right (~03/2004) Renal cell cancer Social History/Home Situation: Lives alone in a private home.? Independent with all aspects of ADLs prior to admission.? Did not use any assistive device. Equipment Owned/DME: None Subjective: Hopeful about getting more strengthening at the SNF. Aware that he goes there this afternoon. Continues to report pain in B knees after ambulation that resolves with rest. Objective: General Observation: Supine in bed.? Graft harvest site on left quad area healing well.? Mental Status: Alert and oriented as to person, place, time, and purpose. Able to pay attention, focus, and respond appropriately. Pain: 4-5/10 in in B knees and in R hand Vital Signs: WNL ROM: Right Upper Extremity: ? Shoulder Flexion WFL. Shoulder abduction WFL. Elbow flexion WFL. Wrist flexion WFL. Functional opening and closing of hand impaired Left Upper Extremity:? Shoulder Flexion WFL. Shoulder abduction WFL. Elbow flexion WFL. Wrist flexion WFL. Functional opening and closing of hand impaired. Right Lower Extremity: Hip flexion lacks the last 25% of AROM. Hip abduction WFL. Knee flexion 40 degrees to 90 degrees.? Knee extension -40 degrees.? Ankle dorsiflexion to neutral only. Ankle plantarflexion WFL. Left Lower Extremity:? Hip flexion lacks the last 25% of AROM. Hip abduction WFL. Knee flexion 40 degrees to 90 degrees.? Knee extension -40 degrees.? Ankle dorsiflexion to neutral only. Ankle plantarflexion WFL. Strength: Right Upper Extremity: Shoulder flexors 4-/5. Shoulder abductors 4-/5. Elbow flexors 4-/5. Elbow extensors 4-/5. Director Of Vocational Guidance weak and minimally functional. Left Upper Extremity: Shoulder flexors 4-/5. Shoulder abductors 4-/5. Elbow flexors 4-/5. Elbow extensors 4-/5. Director Of Vocational Guidance weak and minimally functional. Right Lower Extremity: Hip flexors 3-/5. Hip abductors 4-/5. Knee flexors 3-/5. Knee extensors 3-/5. Ankle dorsiflexors 3-/5. Ankle plantarflexors 4-/5. Left Lower Extremity: Hip flexors 3-/5. Hip abductors 4-/5. Knee flexors 3-/5. Knee extensors 3-/5. Ankle dorsiflexors 3-/5. Ankle plantarflexors 4-/5. Bed Mobility/Transfers: Supine to sit independent Sit to stand independent Stand to sit independent Bed to reclining chair independent Reclining chair to bed independent Gait: With stand by assist, now able to manage 300 feet of level surface ambulation using FWW however continues to report pain in B knees with L more affected after the walk. Pain resolves with rest. No full extension in B hips and knees howeer no LOB. No SOB. Patient reports that his gait pattern has been like this for a long time now but the pain in B knees have been worse. THERA EX: Sidestepping around the length on therapy stairs, leading with R and then with L for 12 steps each for 2 sets with 3 lbs on the R anjle and 2 lbs on the L B heel raises x 10 Balance: Static Sitting: Normal Dynamic Sitting: Normal Static Standing: Fair Dynamic Standing: Fair Special Tests: Mobility Limitations Standardized Measure [facility] 6 clicks Basic Mobility Inpatient Short Form: Raw Score: 23 ? CMS Score: 11% deficit? ? ? 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 Dylan requires the use of FWW for all transfer and ambulation task performance with supervision.? His goal is to regain his independent ability with ambulation without any device per prior level of function.? Reports pain in B knees after ambulation that resolves with rest. Patient presents with clinical signs and symptoms consistent with current/admitting diagnoses that have resulted to mobility limitations, gait instability, generalized weakness, and overall ADL decline as demonstrated by the following impairment level findings: 1.? Decreased strength to B UE/LE major muscle groups 2.? Impaired sitting/standing balance 3.? Impaired activity tolerance 4.? Limitation of joint range of motion in R hand 5.? Shortness of breath 6.? Weakness abrasive wheel molder and grasp on B sides 7. Pain in B knees, L>>R Impairments are contributing to the following functional limitations: 1.? Decline in bed mobility skills 2.? Decline in transfer skills 3.? Difficulty with ambulation without assistive device and physical assistance 4.? Increased completion time for mobility ADL performance 5.? Increased risk for falls 6.? Difficulty with managing steps alone safely Patient is [place] a 48226 moderate complexity based on the following: History: 62--year-old male with past medical history as indicated above Examination: Demonstrable impairment in strength, balance, and mobility level with underlying impairments and functional limitations as exhibited above as well as deficit score of 47% utilizing the [facility] Mobility Inpatient Short Form Presentation: Evolving Decision Makin moderate complexity Goals: Goals X1 week 1. Supine-Sit independent MET 2. Sit-Supine independent MET 3. Sit-Stand independent MET 4. Stand-Sit independent with FWW MET 5. Bed-Chair independent with FWW MET 6. Chair-Bed independent with FWW MET 7. Independent gait on level surface with use of? FWW for at least 300 feet without report of pain nor dyspnea NOT MET 8. Independent stair negotiation while holding onto B rails for at least 3 steps without report of pain nor dyspnea NOT MET 9. Independent with home exercise program NOT MET 10. Good static and dynamic standing balance/tolerance NOT MET DISCHARGE RECOMMENDATIONS: [] ? Home with no services [] [] ? Home with services [] ? Home with outpatient PT [] [] ? SNF for continued rehabilitation [] [] ? Longterm Care [] [] ? SNF versus LTC based on ability to participate and progress [] [X]? SNF vs. PT based on prgoress towards goals TREATMENT CODE/TIME: 95214 x 15 minutes,? 45964 x 10 minutes beginning at 15:55 PM. Thank you for the opportunity to participate in the care of this patient. Rosanna Julian PT, DPT, CLT [facility] [place], [place]
== END 2022-09-18 15:58 | disposition skilled nursing facility (03) | DRG 372 ==
LOC: ER 22:19 → MS 23:51
PROVIDERS: Family Medicine; Internal Medicine; Admitting Provider Family Medicine; Emergency Provider Emergency Medicine; PCP Nurse Practitioner Adult Health; Visit Provider Family Medicine
DX: A04.72 Enterocolitis due to Clostridium difficile, not specified as recurrent (principal); E87.1 Hypo-osmolality and hyponatremia; N18.4 Chronic kidney disease, stage 4 (severe); I82.612 Acute embolism and thrombosis of superficial veins of left upper extremity; E87.21 Acute metabolic acidosis; N17.9 Acute kidney failure, unspecified; R53.1 Weakness; E86.0 Dehydration; E83.42 Hypomagnesemia; D50.9 Iron deficiency anemia, unspecified; D72.829 Elevated white blood cell count, unspecified; E10.42 Type 1 diabetes mellitus with diabetic polyneuropathy; I12.9 Hypertensive chronic kidney disease with stage 1 through stage 4 chronic kidney disease, or unspecified chronic kidney disease; E53.8 Deficiency of other specified B group vitamins; F11.11 Opioid abuse, in remission; Z85.528 Personal history of other malignant neoplasm of kidney; Z90.5 Acquired absence of kidney; F10.20 Alcohol dependence, uncomplicated; Z79.4 Long term (current) use of insulin; R00.0 Tachycardia, unspecified; R50.9 Fever, unspecified
CPT/HCPCS: 36415; 71275; 80048; 80053; 80307; 82805; 83690; 84145; 85027; 87040; 87081; 93005; 97110; 97116; 97140; 97161; 97164; 97166; 97530; 99285; J1650; 70450; 71045; 74177; 80202; 80320; 80329; 81003; 81015; 82607; 82728; 82746; 83036; 83540; 83605; 83735; 84100; 84132; 84443; 84484; 85014; 85018; 85025; 85379; 85610; 85730; 86140; 87086; 93010; 93971; 99223; 99231; 99232; 99233; 99239; J1885; J3420; J3475; J3490

== ENCOUNTER 2022-10-01 03:43 | Outpatient (CLI) | payer OTHER, MEDICAID, SELFPAY ==
[2022-10-01 13:20] LABS: HGB 10.6 g/dL (13.5-17.5); MCH 25.8 pg (27.0-33.0); MCHC 29.4 % (32.0-36.0); MCV 88 fL (80-95); MPV 9.1 fL (8.0-11.0); Platelet Count 607 10^3/uL (130-400); RBC 4.11 10^6/uL (4.36-5.78); RDW 16.9 % (11.8-14.1); RDW-SD 54.4 fL; WBC 11.23 10^3/uL (4.4-10.8)
[2022-10-01 14:07] LABS: Anion Gap 7.6 mmol/L (3-11); BUN 41 mg/dL (7-18); CO2 30.4 mmol/L (21.0-32.0); CREATININE 2.6 mg/dL (0.70-1.30); Calcium 10.1 mg/dL (8.5-10.1); Chloride 104 mmol/L (98-107); Estimated GFR 26.87 (mL/min/1.73m2); Glucose 66 mg/dL (74-106); Magnesium 1.9 mg/dL (1.8-2.4); Potassium 5.8 mmol/L (3.5-5.1); Sodium 142 mmol/L (136-145)
== END 2022-10-01 03:44 | disposition home or self-care (01) ==
PROVIDERS: PCP Nurse Practitioner Adult Health; Visit Provider Physician Assistant
DX: N18.4 Chronic kidney disease, stage 4 (severe) (principal)
CPT/HCPCS: 36415; 80048; 85027; 83735

== ENCOUNTER 2022-10-10 19:40 | Inpatient (IN) | payer OTHER, MEDICAID, SELFPAY ==
[2022-10-10] VITALS (20 sets, daily range): BP systolic 115–166; BP diastolic 65–95; PULSE 118–135; RESP 16–36; TEMP 37.1; O2SAT 90–100
[2022-10-10 19:56] LABS: Abs Immature Grans 0.04 10^3/uL (0.0-0.06); Absolute Basophil Count 0.09 10^3/uL (0.0-0.2); Absolute Eosinophil Count 0.57 10^3/uL (0.0-0.7); Absolute Lymphocyte Count 2.91 10^3/uL (1.2-3.4); Absolute Monocyte Count 0.64 10^3/uL (0.1-0.8); Absolute Neutrophil Count 4.93 10^3/uL (1.2-6.7); Eosinophils % 6.2; HCT 34.9 % (40.0-50.0); HGB 10.9 g/dL (13.5-17.5); Immature Grans % 0.4; Lymphocytes % 31.7; MCH 26.1 pg (27.0-33.0); MCHC 31.2 % (32.0-36.0); MCV 84 fL (80-95); MPV 9.4 fL (8.0-11.0); Neutrophils % 53.7; Platelet Count 385 10^3/uL (130-400); RBC 4.18 10^6/uL (4.36-5.78); RDW 17.6 % (11.8-14.1); RDW-SD 53.8 fL; WBC 9.18 10^3/uL (4.4-10.8)
[2022-10-10 20:16] LABS: ALT 23 U/L (16-63); AST 17 U/L (15-37); Albumin 3.4 g/dL (3.4-5.0); Alkaline Phosphatase 75 U/L (46-116); BUN 53 mg/dL (7-18); Bilirubin, Total 0.3 mg/dL (0.2-1.0); CREATININE 2.2 mg/dL (0.70-1.30); Chloride 105 mmol/L (98-107); Estimated GFR 32.83 (mL/min/1.73m2); Glucose 193 mg/dL (74-106); Potassium 4.3 mmol/L (3.5-5.1); Sodium 141 mmol/L (136-145); Total Protein 8.5 g/dL (6.4-8.2)
[2022-10-10 20:24] LABS: Salicylate < 2.8 mg/dL (<2.8)
[2022-10-10 20:27] LABS: Acetaminophen < 2 ug/mL (10-30)
[2022-10-10] MEDS: Normal Saline 1,000 ML 1000 ML IV ×2 (20:32→21:34)
--- NOTE | 2022-10-10 21:26 | ED.GENADUL_ITS ---
Discharge Plan Disposition Patient Disposition: Other Disposition Not Listed Other Facility: Still patient at change of shift Condition: Fair Discharge Details Chief Complaint: PsychEval Clinical Impression: Alcohol intoxication, Suicidal ideation, Homicidal ideation Admit Date/Time: 10/11/22 10:25 Admit Provider: Chauncey Torrez Attending Provider: Chauncey Torrez Primary Care Provider: [facility] ED Provider: Jin Emery Discharge Data Discharge Date/Time-TO BE ENTERED AT DEPARTURE: 10/11/22 11:57 Medical Decision Making <Rima Rios NP - Last Filed: 10/12/22 15:24> Patient presents by EMS for mental health evaluation after reportedly making suicidal and homicidal statements. He admits to having alcohol intake today. He is a heavy drinker drinking a gallon of vodka daily last drink was this morning. He reports he is going through withdrawal would like me to discharge him so he can go get alcohol I did offer him phenobarbital which she is agreea ble to receive. He is being cooperative denies suicidal or homicidal ideation at this time. Denies recollection of earlier events. IV will be established she will be given 2 L of normal saline will give phenobarbital 6 mg/kg loading dose, follow phenobarbital protocol. Will check routine labs including blood alcohol level drug panel acetaminophen and salicylate CBC CMP. I suspect he is experiencing alcohol withdrawal and has responded to phenobarbital in the past. Blood alcohol level has returned and is 180. Plan is to monitor him here under suicidal precautions until he is sober and can undergo mental health evaluation. Report and care of patient will be handed off to Dr. White at change of shift Medical Records Medical records reviewed: Yes I reviewed the patient's medical records. Lab Data Lab results reviewed: Yes I reviewed the patient's lab results. Labs: Laboratory Tests Range/Units 10/10/22 10/10/22 10/10/22 19:49 19:49 19:49 WBC (4.4-10.8) 10^3/uL 9.18 RBC (4.36-5.78) 10^6/uL 4.18 L Hgb (13.5-17.5) g/dL 10.9 L Hct (40.0-50.0) % 34.9 L MCV (80-95) fL 84 MCH (27.0-33.0) pg 26.1 L MCHC (32.0-36.0) % 31.2 L RDW (11.8-14.1) % 17.6 H Plt Count (130-400) 10^3/uL 385 MPV (8.0-11.0) fL 9.4 Immature Gran % 0.4 Neutrophils % 53.7 Lymphocytes % 31.7 Monocytes % 7.0 Eosinophils % 6.2 Basophils % 1.0 Nucleated RBC % (0.0-0.3) % 0.0 Absolute Neutrophils (1.2-6.7) 10^3/uL 4.93 Absolute Lymphocytes (1.2-3.4) 10^3/uL 2.91 Absolute Monocytes (0.1-0.8) 10^3/uL 0.64 Absolute Eosinophils (0.0-0.7) 10^3/uL 0.57 Absolute Basophils (0.0-0.2) 10^3/uL 0.09 Sodium (136-145) mmol/L 141 Potassium (3.5-5.1) mmol/L 4.3 Chloride (98-107) mmol/L 105 Carbon Dioxide (21.0-32.0) mmol/L 20.0 L Anion Gap (3-11) mmol/L 16.0 H BUN (7-18) mg/dL 53 H Creatinine (0.70-1.30) mg/dL 2.2 H Est GFR (CKD-EPI 2020) (mL/min/1.73m2) 32.83 Glucose (74-106) mg/dL 193 H Calcium (8.5-10.1) mg/dL 9.0 Total Bilirubin (0.2-1.0) mg/dL 0.3 AST (15-37) U/L 17 ALT (16-63) U/L 23 Alkaline Phosphatase (46-116) U/L 75 Total Protein (6.4-8.2) g/dL 8.5 H Albumin (3.4-5.0) g/dL 3.4 Urine Color (Yellow) Urine Clarity (Clear) Urine pH (5-8) Ur Specific [place] (1.005-1.025) Urine Protein (Negative) mg/dL Urine Ketones (Negative) mg/dL Urine Blood (Negative) Urine Nitrite (Negative) Urine Bilirubin (Negative) Urine Urobilinogen (Up to 0.2) mg/dL Ur Leukocyte Esterase (Negative) Urine RBC (0-2) HPF Urine WBC (0-5) HPF Ur Epithelial Cells (Negative) HPF Urine Crystals (Negative) HPF Urine Bacteria (Negative) HPF Urine Casts (Negative) LPF Urine Mucus (Negative) Ur Culture Indicated? Urine Glucose (Negative) mg/dL Salicylates (<2.8) mg/dL < 2.8 Urine Opiates Screen (Negative) Urine Methadone Screen (Negative) Acetaminophen (10-30) ug/mL < 2 Ur Barbiturates Screen (Negative) Ur Tricyclics Screen (Negative) Ur Amphetamines Screen (Negative) U Benzodiazepines Scrn (Negative) Urine Cocaine Screen (Negative) Ur THC Screen (Negative) Ethyl Alcohol (<10) mg/dL 173.0 H Range/Units 10/10/22 10/10/22 22:21 22:21 WBC (4.4-10.8) 10^3/uL RBC (4.36-5.78) 10^6/uL Hgb (13.5-17.5) g/dL Hct (40.0-50.0) % MCV (80-95) fL MCH (27.0-33.0) pg MCHC (32.0-36.0) % RDW (11.8-14.1) % Plt Count (130-400) 10^3/uL MPV (8.0-11.0) fL Immature Gran % Neutrophils % Lymphocytes % Monocytes % Eosinophils % Basophils % Nucleated RBC % (0.0-0.3) % Absolute Neutrophils (1.2-6.7) 10^3/uL Absolute Lymphocytes (1.2-3.4) 10^3/uL Absolute Monocytes (0.1-0.8) 10^3/uL Absolute Eosinophils (0.0-0.7) 10^3/uL Absolute Basophils (0.0-0.2) 10^3/uL Sodium (136-145) mmol/L Potassium (3.5-5.1) mmol/L Chloride (98-107) mmol/L Carbon Dioxide (21.0-32.0) mmol/L Anion Gap (3-11) mmol/L BUN (7-18) mg/dL Creatinine (0.70-1.30) mg/dL Est GFR (CKD-EPI 2020) (mL/min/1.73m2) Glucose (74-106) mg/dL Calcium (8.5-10.1) mg/dL Total Bilirubin (0.2-1.0) mg/dL AST (15-37) U/L ALT (16-63) U/L Alkaline Phosphatase (46-116) U/L Total Protein (6.4-8.2) g/dL Albumin (3.4-5.0) g/dL Urine Color (Yellow) Yellow Urine Clarity (Clear) Clear Urine pH (5-8) 5.5 Ur Specific [place] (1.005-1.025) 1.015 Urine Protein (Negative) mg/dL 100 H Urine Ketones (Negative) mg/dL Negative Urine Blood (Negative) Negative Urine Nitrite (Negative) Negative Urine Bilirubin (Negative) Negative Urine Urobilinogen (Up to 0.2) mg/dL 0.2 Ur Leukocyte Esterase (Negative) Negative Urine RBC (0-2) HPF Negative Urine WBC (0-5) HPF Negative Ur Epithelial Cells (Negative) HPF Rare Urine Crystals (Negative) HPF Negative Urine Bacteria (Negative) HPF Rare Urine Casts (Negative) LPF Negative Urine Mucus (Negative) Negative Ur Culture Indicated? No Urine Glucose (Negative) mg/dL Negative Salicylates (<2.8) mg/dL Urine Opiates Screen (Negative) Negative Urine Methadone Screen (Negative) Negative Acetaminophen (10-30) ug/mL Ur Barbiturates Screen (Negative) Positive A Ur Tricyclics Screen (Negative) Negative Ur Amphetamines Screen (Negative) Negative U Benzodiazepines Scrn (Negative) Negative Urine Cocaine Screen (Negative) Negative Ur THC Screen (Negative) Negative Ethyl Alcohol (<10) mg/dL HPI <Rima Rios NP - Last Filed: 10/12/22 15:24> General Mode of arrival: ambulatory . Date/Time Provider Initiated Documentation: 10/10/22 19:46 . Limitations to Documentation: no limitations . Information obtained by: patient . HPI Narrative: patient presents to the emergency department abdomen for evaluation of suicidal and homicidal statements that he made earlier. At this time he is denying nancy cidal or homicidal thoughts. He denies recalling making those statements. He is shaky and stating he is going through alcohol withdrawal medication and would like to leave to get all alcohol or is requesting something for his symptoms. He denies any recent illness. Denies any pain, fever or chills or injury. There is not odor of alcohol that he does not appear intoxicated at this time. He is calm and responding appropriately cooperative with questioning and evaluation Related Data Home Medications Medication Instructions Recorded Confirmed lancets 08/03/20 09/10/22 baking soda PO 05/29/21 08/21/22 chlorthalidone 15 mg tablet 7.5 mg PO DAILY 05/29/21 10/10/22 lisinopril 2.5 mg tablet 2.5 mg PO DAILY 05/29/21 10/10/22 atorvastatin 20 mg tablet See Rx Instructions .Route 10/19/21 10/10/22 .COMPLEX #90 tabs pen needle, diabetic 32 gauge x #360 ea 02/01/22 09/10/22 (BD Ultra-Fine Doreen Pen Needle) duloxetine 60 mg capsule,delayed See Rx Instructions .Route 02/20/22 10/10/22 release .COMPLEX #90 caps gabapentin 300 mg capsule See Rx Instructions .Route 05/30/22 10/10/22 .COMPLEX #90 caps dulaglutide 0.75 mg/0.5 mL See Rx Instructions .Route 06/06/22 10/10/22 subcutaneous pen injector .COMPLEX #6 mL (Trulicity) blood sugar diagnostic (OneTouch #400 strips 08/21/22 09/10/22 Verio test strips) naproxen 375 mg tablet,delayed 375 mg PO .with dinner #14 tabs 08/21/22 10/10/22 release blood-glucose meter,continuous #1 ea 08/26/22 09/10/22 (Dexcom G7 Glass Blowing Lathe Operator) blood-glucose sensor (Dexcom G7 #1 ea 08/26/22 09/10/22 Sensor device) multivitamin (Multiple Vitamins 1 tab PO QAM #0 tabs 09/10/22 10/10/22 tablet) thiamine mononitrate (vit B1) 100 100 mg PO QAM #0 tabs 09/10/22 10/10/22 mg tablet (Vitamin B-1 (mononitrate)) L. Acidophilus,Casei,Rhamnosus 1 cap PO DAILY ##0 09/18/22 10/10/22 [Bio-K PLUS] cyanocobalamin (vitamin B-12) 500 1,000 mcg PO DAILY #30 tabs 09/18/22 10/10/22 mcg tablet (Vitamin B-12) diclofenac sodium 1 % topical gel 4 g topical QID #0 grams 09/18/22 10/10/22 gabapentin 100 mg capsule 100 mg PO BID@0800,1400 #0 caps 09/18/22 10/10/22 insulin glargine 100 unit/mL (3 40 unit (0.4 mL) subcut HS #45 mL 09/18/22 10/10/22 mL) subcutaneous pen (Lantus Solostar U-100 Insulin) magnesium oxide 400 mg (241.3 mg 400 mg PO BID #0 tabs 09/18/22 10/10/22 magnesium) tablet metoprolol succinate 25 mg 50 mg PO HS #90 tabs 09/18/22 10/10/22 tablet,extended release 24 hr psyllium husk (aspartame) 3.4 1 ea PO TID #0 grams 09/18/22 10/10/22 gram/5.8 gram oral powder (Metamucil Sugar-Free (aspartame)) tramadol 50 mg tablet 50 - 100 mg PO QID #0 tabs 09/18/22 10/10/22 Previous Rx's Medication Instructions Recorded atorvastatin 20 mg tablet See Rx Instructions .Route 10/19/21 .COMPLEX #90 tabs pen needle, diabetic 32 gauge x #360 ea 02/01/22 (BD Ultra-Fine Doreen Pen Needle) duloxetine 60 mg capsule,delayed See Rx Instructions .Route 02/20/22 release .COMPLEX #90 caps gabapentin 300 mg capsule See Rx Instructions .Route 05/30/22 .COMPLEX #90 caps dulaglutide 0.75 mg/0.5 mL See Rx Instructions .Route 06/06/22 subcutaneous pen injector .COMPLEX #6 mL (Trulicity) blood sugar diagnostic (OneTouch #400 strips 08/21/22 Verio test strips) naproxen 375 mg tablet,delayed 375 mg PO .with dinner #14 tabs 08/21/22 release blood-glucose meter,continuous #1 ea 08/26/22 (Dexcom G7 Glass Blowing Lathe Operator) blood-glucose sensor (Dexcom G7 #1 ea 08/26/22 Sensor device) multivitamin (Multiple Vitamins 1 tab PO QAM #0 tabs 09/10/22 tablet) thiamine mononitrate (vit B1) 100 100 mg PO QAM #0 tabs 09/10/22 mg tablet (Vitamin B-1 (mononitrate)) L. Acidophilus,Casei,Rhamnosus 1 cap PO DAILY ##0 09/18/22 [Bio-K PLUS] cyanocobalamin (vitamin B-12) 500 1,000 mcg PO DAILY #30 tabs 09/18/22 mcg tablet (Vitamin B-12) diclofenac sodium 1 % topical gel 4 g topical QID #0 grams 09/18/22 gabapentin 100 mg capsule 100 mg PO BID@0800,1400 #0 caps 09/18/22 insulin glargine 100 unit/mL (3 40 unit (0.4 mL) subcut HS #45 mL 09/18/22 mL) subcutaneous pen (Lantus Solostar U-100 Insulin) magnesium oxide 400 mg (241.3 mg 400 mg PO BID #0 tabs 09/18/22 magnesium) tablet metoprolol succinate 25 mg 50 mg PO HS #90 tabs 09/18/22 tablet,extended release 24 hr psyllium husk (aspartame) 3.4 1 ea PO TID #0 grams 09/18/22 gram/5.8 gram oral powder (Metamucil Sugar-Free (aspartame)) tramadol 50 mg tablet 50 - 100 mg PO QID #0 tabs 09/18/22 Allergies Allergy/AdvReac Type Severity Reaction Status Date / Time lactose intolerant AdvReac Mild Diarrhea Uncoded 10/10/22 19:53 General Stated Complaint: PsychEval GALILEO: 2 Review of Systems <Rima Rios NP - Last Filed: 10/12/22 15:24> All systems reviewed & are unremarkable except as noted in HPI and below PFSH <Rima Rios NP - Last Filed: 10/12/22 15:24> All Active Problems (Updated 10/12/22 @ 14:47 by Rima Rios NP) Discharge planning issues (Acute) DVT prophylaxis (Acute) Alcohol intoxication (Acute) Suicidal ideation (Acute) Homicidal ideation (Acute) B12 deficiency (Acute) Sinus tachycardia (Acute) Thrombosis superficial vein, arm, acute (Acute) Anemia (Chronic) Leukocytosis (leucocytosis) (Acute) General weakness (Acute) Gallstones (Acute) Kidney lesion, [place], left (Acute) Microcytic anemia (Acute) Colitis due to Clostridium difficile (Acute) Alcohol use disorder (Chronic) Dehiscence of operative wound (Acute) Subsequent encounter Skin ulcer of scrotum (Acute) De Quervain's tenosynovitis, left (Acute) 40 mg Depo-Medrol injection: 04/04/2022 Metabolic acidosis (Acute) Essential hypertension (Acute) CKD (chronic kidney disease) stage 4, GFR 15-29 ml/min (Chronic) Lamellar macular hole of both eyes (Acute 10/25/21) Type 1 diabetes, controlled, with neuropathy (Chronic ~05/2017) Adult onset, diagnosed 05/2017 [facility] Endo Dr. 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 admission) History of renal cell cancer s/p nephrectomy Hyperkalemia (~05/2021) 05/29/21 [facility] Nephrology Lesion of bone of left forearm proximal radius lesion Osteoarthritis of elbows, bilateral Polyneuropathy associated with underlying disease DM Solitary left kidney [facility] Nephro (initial 07/2020); s/p nephrectomy on R 2004 renal cell cancer; partial nephrectomy on L 2007 Tubular adenoma of colon 08/2018 colonoscopy [facility]; recall 5y Type 1 diabetes mellitus without complications Surgical History H/O arthroscopy of knee Remotely--both knees at some point; he cannot recall what, but thinks meniscal H/O partial nephrectomy (~04/2007) left H/O skin graft [facility] 07/12/22 Scrotal Abscess 07/15/22 Skin Graft with Bolster removal History of nephrectomy, right (~03/2004) Renal cell cancer Family History Mother , 54yo breast cancer Alcohol abuse Breast cancer Depression Substance abuse Father , ~70yo prostate cancer Alcohol abuse Prostate cancer Substance abuse Sister , throat caner (nicotine use) Alcohol abuse Cancer Cervical Substance abuse Social History Smoking/Tobacco Use Status: Never Smoking risk assessment performed?: Yes Alcohol Intake: current Alcohol Intake frequency: a few times a month Previous attempts at quittin Counseling given: Yes ([facility]) Drug use: Never Substance use type: opiates Details: no IV drug use Adopted: No Caregiver/Support person: No Foster care: No Household members: other Details: Sober Living Facility Housing: apartment Number of Children: 4 number of grandchildren: 4 Communication Needs: None Education Level: college Do you need help understanding health information?: Rarely 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) Pets and animals: Yes Pets and animals: cat(s) Sexually active: No Do you think of yourself as: straight/heterosexual Current gender identity: male What is your relationship status?: How often do you talk on the phone with friends or family?: three or more times per week How often do you get together with friends or relatives?: three or more times per week How often do you attend roman catholic or anabaptism services?: 4 or more times per year Do you belong to any clubs or organized social groups?: no Panel score (0-1 are the most socially isolated patients): 2 What type of physical activity do you participate in: walking, bicycling and other Details: EXERCISE ON STATIONARY BIKE Duration: < 15 minutes/day Frequency: 3-4 times per week Erin/Taoism: Sabianism Agree to transfusion: No Seatbelt use: always Helmet use: Yes Drive intox or ride w/intox assembly line driver: No Water heater temp set <120 deg: Yes Working smoke detector in home: Yes Fire extinguisher in home: Yes Do you feel safe at home: Yes Do you feel safe in your relationship?: Yes Exam <Rima Rios NP - Last Filed: 10/12/22 15:24> Const General: cooperative Nutritional Appearance: overweight Orientation: alert, awake, oriented x3 and other (Denies recalling earlier events) HENMT Head: normal to inspection, normocephalic and atraumatic Mouth: moist mucous membranes abnormal Chest Chest: normal inspection of the chest Resp Effort & Inspection: normal respiratory effort Cardio Rate: tachycardic GI Inspection: normal to inspection, distended and obesity Skin General skin exam: no rashes or lesions noted Neuro General: patient alert, patient awake, patient oriented x3, tone normal, moves all extremities and no focal motor deficits Extrem General: normal to inspection and full ROM Psych Appearance: grossly normal Mental Status: mental status grossly normal Speech and Movement: speech and movement normal and other (tremors) Mood: congruent mood Affect: blunted Attitude: cooperative Course <Rima Rios NP - Last Filed: 10/12/22 15:24> Vital Signs Vital signs: Vital Signs Temperature 37.1 C 10/10/22 19:42 Pulse 135 H 10/10/22 19:42 Respiratory Rate 16 10/10/22 19:42 Blood Pressure 115/86 10/10/22 19:42 Pulse Oximetry 97 10/10/22 19:42 Temperature 37.1 C 10/10/22 19:42 Temperature Source Rectal 10/10/22 19:42 Pulse 118 H 10/10/22 21:00 Respiratory Rate 17 10/10/22 21:00 Respiratory Effort Normal 10/10/22 19:42 Blood Pressure 138/65 10/10/22 21:00 Blood Pressure Position Sitting 10/10/22 19:42 Pulse Oximetry 98 10/10/22 21:00 Oxygen Delivery Method Room Air 10/10/22 21:00 Oxygen Flow Rate 0 10/10/22 21:00 Lab/Test Results Lab/Test Results: Laboratory Tests Range/Units 10/10/22 10/10/22 10/10/22 19:49 19:49 19:49 WBC (4.4-10.8) 10^3/uL 9.18 RBC (4.36-5.78) 10^6/uL 4.18 L Hgb (13.5-17.5) g/dL 10.9 L Hct (40.0-50.0) % 34.9 L MCV (80-95) fL 84 MCH (27.0-33.0) pg 26.1 L MCHC (32.0-36.0) % 31.2 L RDW (11.8-14.1) % 17.6 H Plt Count (130-400) 10^3/uL 385 MPV (8.0-11.0) fL 9.4 Immature Gran % 0.4 Neutrophils % 53.7 Lymphocytes % 31.7 Monocytes % 7.0 Eosinophils % 6.2 Basophils % 1.0 Nucleated RBC % (0.0-0.3) % 0.0 Absolute Neutrophils (1.2-6.7) 10^3/uL 4.93 Absolute Lymphocytes (1.2-3.4) 10^3/uL 2.91 Absolute Monocytes (0.1-0.8) 10^3/uL 0.64 Absolute Eosinophils (0.0-0.7) 10^3/uL 0.57 Absolute Basophils (0.0-0.2) 10^3/uL 0.09 Sodium (136-145) mmol/L 141 Potassium (3.5-5.1) mmol/L 4.3 Chloride (98-107) mmol/L 105 Carbon Dioxide (21.0-32.0) mmol/L 20.0 L Anion Gap (3-11) mmol/L 16.0 H BUN (7-18) mg/dL 53 H Creatinine (0.70-1.30) mg/dL 2.2 H Est GFR (CKD-EPI 2020) (mL/min/1.73m2) 32.83 Glucose (74-106) mg/dL 193 H Calcium (8.5-10.1) mg/dL 9.0 Total Bilirubin (0.2-1.0) mg/dL 0.3 AST (15-37) U/L 17 ALT (16-63) U/L 23 Alkaline Phosphatase (46-116) U/L 75 Total Protein (6.4-8.2) g/dL 8.5 H Albumin (3.4-5.0) g/dL 3.4 Salicylates (<2.8) mg/dL < 2.8 Acetaminophen (10-30) ug/mL < 2 Ethyl Alcohol (<10) mg/dL 173.0 H Sign Out <Rima Rios, IT TECHNICAL SUPPORT SPECIALIST - Last Filed: 10/12/22 15:24> Sign Out Data: Sign Out Comment: Patient was suicidal and homicidal comments prior to arrival. Intoxicated. Received phenobarbital during the night and allowed to sober. Plan for crisis evaluation this morning for disposition planning. Last updated by Leslie White MD at 10/11/22 07:04 PAWSS <Rima Rios NP - Last Filed: 10/12/22 15:24> Have you Been Recently Intoxicated or Drunk Within the Last 30 days?: Yes Have you Ever Experienced Previous Episodes of Alcohol Withdrawal?: Yes Have you ever Experienced Withdrawal Seizures?: Yes Have you ever Experienced Delirium Tremens(DT)s?: Yes Have you ever undergone Alcohol Rehabilitation Treatment (i.e, inpt ot outpatient treatment programs)?: Yes Have you ever Experienced Blackouts?: Yes Have you ever Combined Alcohol with other Downers within the last 90 days?: No Have you ever Combined Alcohol with any other Substance of Abuse during the last 90 days?: No Positive Blood Alcohol level on Presentation? [PCS.BAL]: Yes Evidence of Increased Autonomic Activity (i.e. HR>120, tremor, sweating, agita tion, nausea)?: Yes Result: 8 <Charley Martinez - Last Filed: 10/10/22 22:45> Result: 8
[2022-10-10] MEDS: PHENobarbital 130 MG in Normal Saline 50 ML 100 MG IVPB (21:56)
--- NOTE | 2022-10-10 22:23 | PDOC.MHCN_ITS ---
Date of service: 10/10/22 Time of Service: 22:23 PHQ-9 Over the last 2 weeks, how often have you been bothered by any of the following problems? 1. Little interest or pleasure in doing things: nearly every day 3. Trouble falling or staying asleep, or sleeping too much: nearly every day 4. Feeling tired or having little energy: nearly every day 5. Poor appetite or overeating: not at all 6. Feeling bad about yourself - or that you are a failure or have let yourself and your family down: nearly every day 7. Trouble concentrating on things, such as reading the newspaper or watching television: more than half the days 8. Moving or speaking so slowly that other people could have noticed? - Or the opposite - being so fidgety or restless that you have been moving around a lot more than usual: nearly every day 9. Thoughts that you would be better off or of hurting yourself in some way: nearly every day If you checked off any problems, how difficult have these problems made it for you to do your work, take care of things at home, or get along with other people?: very difficult Source: Developed by Drs. John Jacobs, Aracelis Kimbrough, Matias Christensen and colleagues, with an educational min from [employer]. Suicide Severity Rate CSSRS Have you wished you were or wished you could go to sleep and not wake up?: Yes Have you actually had any thoughts of killing yourself?: Yes CSSRS2 Have you been thinking about how you might do this?: Yes Have you had these thoughts and had some intention of acting on them?: Yes Have you started to work out or worked out the details of how to kill yourself? Do you intend to carry out this plan?: Yes CSSRS3 Have you ever done anything, started to do anything or prepared to do anything to end your life?: Yes CSSRS4 Was this within the past three months?: Yes Screening Score Total Score: 8 Screening: Positive Mental Health Emergency Note Release [facility] release signed:: Yes Reason for Visit SI In the last 2 weeks has the pt presented for ES prior to today?: No Client Information Client is: Adult Outpatient Well Housed: Yes Non Suicidal Self Injury Current: No History: No Safety Risk/Harm to Self or Others Current Ideation to Harm Self or Others: Yes to self. Intent: yes, has intent. Plan: yes,has a plan. History of suicide attempt: yes,history of suicide attempt reported. Details of previous suicide attempt: Client tried to suffocate himself with a bag, Risk: Does risk to harm exist?: yes. Risk: Moderate Risk Duty to warn indicated: No Asssessment/Mental Status Appearance: Unremarkable Attitude: Friendly and Hostile Behavior: Agitated and Repetitive movements Speech: Normal and Loud Affect: Expansive and Incongurent with mood Mood: Elevated, Expansive and Depressed Thought process: Unremarkable Hallucinations: No evidence Delusions: No evidence Attention: Unremarkable Perception: Not impaired Orientation: Fully orientated Memory: Intact Insight: Fair Judgement: Fair Neurovegetative Symptoms Sleep: Decrease Appetitie: No change Interests: Decrease Energy: No change Libido: No change Substance Use: Intoxication Drug Issues: Other (None as of now, client reports a past problem with addiction ) Additional Issues: Assaultive/Threatening Behavior: Yes Medical Concerns: No Client engaged in active self harm w/weapon: No Threatening to run away: No Child reported abuse/neglect: No Voluntarily presenting for services: Yes Domestic violence is a concern: No Extreme Psychosis or extreme behavior is present: No Impression Client was screened and assessed at the [facility] police station after this telegraphic typewriter installer got a call that the police interrupted the clients Attempt to by suicide by suffocating himself with a bag over his head. Client asked the police officers in the room with this telegraphic typewriter installer on several occasions to use their weapons on the client, for the client to . Per clients exact words the client has ?run out of shit to do in life?. Client does not currently have a job and did not report any friends to this telegraphic typewriter installer and does not see his family as a support system where he can ask them for help, client also reports several medical problems and is currently questioning his christianity debbie. Also, poor clients? words he has been depressed since he was born. Client reported problems with addiction to alcohol and drugs. On several occasions this telegraphic typewriter installer tried to find something worth meaning to the client and something worth living for the client. Client was unable to address anything in his life that was worth living for, including his family saying I just ?think they would be better off without me?. Client is currently willing to seek voluntary inpatient treatment to address his mental health and his suicidal ideation at this time. Client will need to be screened and reassessed daily until placement is found. Client is currently at [facility] ED after being transported there from the police station. This telegraphic typewriter installer observed the clients going from one mood to another very quickly. This telegraphic typewriter installer observed the client getting aggitated when told that he needed mental health treatment, client was observed trying to attack this telegraphic typewriter installer and was stop with the assistance from the police officers present during the screening process. Plan/Disposition Recommended Disposition: Hospitalization (Waiting on Medical clearance forms from ED ) No. Plan: Client is currently willing to seek voluntary inpatient treatment to address his mental health and his suicidal ideation at this time. Client will need to be screened and reassessed daily until placement is found. Client is currently at [facility] ED after being transported there from the police station. Reports/communication Outcome discussed with: ED/Personnel
[2022-10-10 22:30] LABS: Bilirubin Negative (Negative); Blood Negative (Negative); Clarity Clear (Clear); Glucose Negative (Negative); Ketones Negative (Negative); Leukocyte Esterase Negative (Negative); Nitrite Negative (Negative); Specific Gravity 1.015 (1.005-1.025); Urobilinogen 0.2 mg/dL (Up to 0.2); pH 5.5 (5-8)
[2022-10-10 22:37] LABS: Bacteria Rare HPF (Negative); C & S Indicated? No; Casts Negative LPF (Negative); Crystals Negative HPF (Negative); Epithelial Cells Rare HPF (Negative); Mucus Negative (Negative); RBC Negative HPF (0-2); WBC Negative HPF (0-5)
[2022-10-10 22:50] LABS: *AMPHETAMINES SCREEN URINE Negative (Negative); *BARBITURATES SCREEN URINE Positive (Negative); *BENZODIAZEPINES SCREEN URINE Negative (Negative); Cannabinoids THC Negative (Negative); Cocaine Screen,Urine Negative (Negative); METHADONE URINE SCREEN Negative (Negative); OPIATES URINE SCREEN Negative (Negative); Tricyclic Antidepressants Negative (Negative)
[2022-10-11] VITALS (82 sets, daily range): BP systolic 134–186; BP diastolic 70–124; PULSE 79–133; RESP 13–30; TEMP 36.5–37.9; O2SAT 87–99
--- NOTE | 2022-10-11 00:06 | NUR.NOTE ---
Pt reported having sob and having trouble catching a breath. Pt VS is unchanged, pt reports feeling anxious, given 15L NRB for comfort for duration of 30sec panic attack, able to verbally de-escalate, pt is back to baseline and on RA at this time.
[2022-10-11] MEDS: PHENobarbital 130 MG in Normal Saline 50 ML 100 MG IVPB (01:28)
--- NOTE | 2022-10-11 06:58 | ED.PROG_ITS ---
Date of service: 10/10/22 Time of Service: 23:30 Medical Decision Making Assumed care of patient who presented after making suicidal and homicidal statements. Patient receiving phenobarbital for alcohol withdrawal. Patient sobering overnight and will have crisis evaluation in the morning. No issues overnight. Signed out to oncoming provider. Discharge Plan Discharge Details Chief Complaint: PsychEval Clinical Impression: Alcohol intoxication, Suicidal ideation, Homicidal ideation Primary Care Provider: Mel Llamas ED Provider: Leslie White Home Meds and New Rx's Prescriptions: No Action (DME) lancets Misc See Rx Instructions .MEDSUPPLY Rx Instructions: As directed to check blood glucose four times daily. On insulin. Dispense covered brand. duloxetine 60 mg capsule,delayed release(DR/EC) See Rx Instructions .ROUTE .COMPLEX Qty: 90 3RF Dose Instruction: TAKE 1 CAPSULE BY MOUTH EVERY MORNING Rx Instructions: TAKE 1 CAPSULE BY MOUTH EVERY MORNING Trulicity 0.75 mg/0.5 mL pen injector See Rx Instructions .ROUTE .COMPLEX Qty: 6 0RF Dose Instruction: INJECT 0.5ML UNDER THE SKIN ONCE WEEKLY Rx Instructions: INJECT 0.5ML UNDER THE SKIN ONCE WEEKLY naproxen 375 mg tablet,delayed release (DR/EC) 375 mg PO .with dinner Qty: 14 0RF Rx Instructions: Post-op pain (DME) OneTouch Verio test strips Strip See Rx Instructions .ROUTE .COMPLEX Qty: 400 0RF Dose Instruction: USE TO TEST BLOOD GLUCOSE FOUR TIMES DAILY Rx Instructions: USE TO TEST BLOOD GLUCOSE FOUR TIMES DAILY chlorthalidone 15 mg tablet 7.5 mg PO DAILY Patient Comments: 05/29/21 visit lisinopril 2.5 mg tablet 2.5 mg PO DAILY Patient Comments: 05/29/21 office visit baking soda PO Rx Instructions: 1/2 teaspoon per day due to metabolic acidosis atorvastatin 20 mg tablet See Rx Instructions .ROUTE .COMPLEX Qty: 90 3RF Dose Instruction: TAKE 1 TABLET BY MOUTH EVERY NIGHT AT BEDTIME FOR CHOLESTEROL OR DIABETES Rx Instructions: TAKE 1 TABLET BY MOUTH EVERY NIGHT AT BEDTIME FOR CHOLESTEROL OR DIABETES (DME) pen needle, diabetic [BD Ultra-Fine Doreen Pen Needle] 32 gauge x 5/32 needle See Rx Instructions .ROUTE .MEDSUPPLY Qty: 360 3RF Rx Instructions: BD Ultrafine 32G X 6mm, 4x/day for goal A1C<7 for E10.9 gabapentin 300 mg capsule See Rx Instructions .ROUTE .COMPLEX Qty: 90 0RF Dose Instruction: TAKE 1 CAPSULE BY MOUTH AT BEDTIME NEEDED FOR NERVE PAIN INLEGS Rx Instructions: TAKE 1 CAPSULE BY MOUTH AT BEDTIME NEEDED FOR NERVE PAIN INLEGS (DME) Dexcom G7 Personnel Clerks Supervisor Misc See Rx Instructions .ROUTE Qty: 1 0RF Rx Instructions: As directed (DME) Dexcom G7 Sensor Device See Rx Instructions .ROUTE Qty: 1 0RF Rx Instructions: As directed multivitamin [Multiple Vitamins] Tablet 1 tab PO QAM Qty: 0 0RF thiamine mononitrate (vit B1) [Vitamin B-1 (mononitrate)] 100 mg Tablet 100 mg PO QAM Qty: 0 0RF cyanocobalamin (vitamin B-12) [Vitamin B-12] 500 mcg Tablet 1,000 mcg PO DAILY Qty: 30 0RF gabapentin 100 mg Capsule 100 mg PO BID@0800,1400 Qty: 0 0RF Dificid 200 mg Tablet 200 mg PO BID Qty: 0 0RF diclofenac sodium 1 % Gel 4 g topical QID Qty: 0 0RF Rx Instructions: apply to both knees QID magnesium oxide 400 mg (241.3 mg magnesium) Tablet 400 mg PO BID Qty: 0 0RF Metamucil Sugar-Free (aspart) 3.4 gram/5.8 gram Powder 1 ea PO TID Qty: 0 0RF L. Acidophilus,Casei,Rhamnosus [Bio-K Plus] 1 cap PO DAILY Qty: 0 0RF tramadol 50 mg Tablet 50 - 100 mg PO QID Qty: 0 0RF metoprolol succinate 25 mg tablet extended release 24 hr 50 mg PO HS Qty: 90 3RF insulin glargine [Lantus Solostar U-100 Insulin] 100 unit/mL (3 mL) insulin pen 40 unit subcut HS MDD 46 units daily Qty: 45 3RF Rx Instructions: DMT1
--- NOTE | 2022-10-11 10:15 | NUR.NOTE ---
Nursing Note: This RN took report and assumed care at 10am. Pt in bed and awake. CIWA conducted immediately and scored at 26. MD aware at at bedside.
--- NOTE | 2022-10-11 11:55 | W.PM.HP.N ---
Date of service: 10/11/22 Time of Service: 11:55 Assessment and Plan Assessment and plan (1) Alcohol intoxication: Status: Acute Assessment and plan: Continue phenobarbital withdrawal protocol. Consider manager recovery referral if agreeable, will discuss possible inpatient rehabilitation when appropriate Mental health evaluation when medically cleared. (2) Suicidal ideation: Status: Acute Assessment and plan: He mentioned SI and HI while intoxicated prehospital but since arrival to the emergency department he denies. Will complete mental health evaluation once he is medically stable (3) Homicidal ideation: Status: Acute Assessment and plan: As above. (4) Type 1 diabetes, controlled, with neuropathy: Status: Chronic Assessment and plan: Hemoglobin A1c was 7.9 September 07, [address] on carb consistent diet with blood sugars AC and sliding scale coverage as needed (5) CKD (chronic kidney disease) stage 4, GFR 15-29 ml/min: Status: Chronic Assessment and plan: Creatinine 2.6 on admission. His baseline appears to be 1.7, 1.8. Avoid nephrotoxic drugs renal dosing as needed, continue IV hydration discussed with DR Torrez History of Present Illness Narrative: This is a 62-year-old male patient with history of alcohol use disorder, diabetes mellitus type 1 who while intoxicated last night made suicidal and homicidal statements. Law enforcement did get involved and he was transported to the emergency department for evaluation. At this point his blood alcohol was still elevated at 180 but he was experiencing withdrawal symptoms as he is a heavy daily drinker. He was started on phenobarbital protocol. The rest of his medical evaluation was unremarkable. He remained in the emergency department overnight with hopes that in the morning he would be sober and not experiencing withdrawal having responded to the phenobarb but unfortunately he was still experiencing withdrawal symptoms so hospitalist services was contacted and he was admitted to the medical surgical unit for acute alcohol withdrawal. Review of Systems All systems reviewed & are unremarkable except as noted in HPI and below PFSH All Active Problems (Updated 10/12/22 @ 14:47 by Rima Rios NP) Discharge planning issues (Acute) DVT prophylaxis (Acute) Alcohol intoxication (Acute) Suicidal ideation (Acute) Homicidal ideation (Acute) B12 deficiency (Acute) Sinus tachycardia (Acute) Thrombosis superficial vein, arm, acute (Acute) Anemia (Chronic) Leukocytosis (leucocytosis) (Acute) General weakness (Acute) Gallstones (Acute) Kidney lesion, [place], left (Acute) Microcytic anemia (Acute) Colitis due to Clostridium difficile (Acute) Alcohol use disorder (Chronic) Dehiscence of operative wound (Acute) Subsequent encounter Skin ulcer of scrotum (Acute) De Quervain's tenosynovitis, left (Acute) 40 mg Depo-Medrol injection: 04/04/2022 Metabolic acidosis (Acute) Essential hypertension (Acute) CKD (chronic kidney disease) stage 4, GFR 15-29 ml/min (Chronic) Lamellar macular hole of both eyes (Acute 10/25/21) Type 1 diabetes, controlled, with neuropathy (Chronic ~05/2017) Adult onset, diagnosed 05/[address] [facility] [address]. Douglas--recommend GLP1 Personal goal A1C <7% Secondary hyperparathyroidism (Acute ~05/2021) 05/29/21 [facility] Nephrology Elevated PSA (Acute) Family history of prostate cancer (Chronic) F Hyperlipidemia (Chronic) Hypertension (Chronic) RX Lisinopril (stopped due to creatinine) Medical History Alcohol intoxication (~12/02/21) Bilateral carpal tunnel syndrome Carpal tunnel syndrome on both sides +[facility] [employer] [facility] 05/08/2020 Chronic gingivitis, plaque induced Dentist History of alcohol use disorder since 1989 with intermittent sobriety History of elevated PSA Per [facility] Records--01/14/2019 6.41, 04/28/2018 6.32; +Fam hx prostate cancer in F History of opioid abuse s/p surgeries; visiting brother 08/2021 ([facility] admission) History of renal cell cancer s/p nephrectomy Hyperkalemia (~05/2021) 05/29/21 [facility] Nephrology Lesion of bone of left forearm proximal radius lesion Osteoarthritis of elbows, bilateral Polyneuropathy associated with underlying disease DM Solitary left kidney [facility] Nephro (initial 07/2020); s/p nephrectomy on R 2004 renal cell cancer; partial nephrectomy on L 2007 Tubular adenoma of colon 08/2018 colonoscopy [facility]; recall 5y Type 1 diabetes mellitus without complications Surgical History H/O arthroscopy of knee Remotely--both knees at some point; he cannot recall what, but thinks meniscal H/O partial nephrectomy (~04/2007) left H/O skin graft [facility] 07/12/22 Scrotal Abscess 07/15/22 Skin Graft with Bolster removal History of nephrectomy, right (~03/2004) Renal cell cancer Family History Mother , 54yo breast cancer Alcohol abuse Breast cancer Depression Substance abuse Father , ~70yo prostate cancer Alcohol abuse Prostate cancer Substance abuse Sister , throat caner (nicotine use) Alcohol abuse Cancer Cervical Substance abuse Social History Smoking/Tobacco Use Status: Never Smoking risk assessment performed?: Yes Alcohol Intake: current Alcohol Intake frequency: a few times a month Previous attempts at quittin Counseling given: Yes ([facility]) Drug use: Never Substance use type: opiates Details: no IV drug use Adopted: No Caregiver/Support person: No Foster care: No Household members: other Details: Sober Living Facility Housing: apartment Number of Children: 4 number of grandchildren: 4 Communication Needs: None Education Level: college Do you need help understanding health information?: Rarely 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) Pets and animals: Yes Pets and animals: cat(s) Sexually active: No Do you think of yourself as: straight/heterosexual Current gender identity: male What is your relationship status?: How often do you talk on the phone with friends or family?: three or more times per week How often do you get together with friends or relatives?: three or more times per week How often do you attend cheondoism or restoration services?: 4 or more times per year Do you belong to any clubs or organized social groups?: no Panel score (0-1 are the most socially isolated patients): 2 What type of physical activity do you participate in: walking, bicycling and other Details: EXERCISE ON STATIONARY BIKE Duration: < 15 minutes/day Frequency: 3-4 times per week Erin/Worship: Alevism Agree to transfusion: No Seatbelt use: always Helmet use: Yes Drive intox or ride w/intox otr flatbed company truck driver: No Water heater temp set <120 deg: Yes Working smoke detector in home: Yes Fire extinguisher in home: Yes Do you feel safe at home: Yes Do you feel safe in your relationship?: Yes Meds Allergies and Home Medications Allergies Allergy/AdvReac Type Severity Reaction Status Date / Time lactose intolerant AdvReac Mild Diarrhea Uncoded 10/10/22 19:53 Home Medications Medication Instructions Recorded Confirmed Type lancets 08/03/20 09/10/22 History baking soda PO 05/29/21 08/21/22 History chlorthalidone 15 mg tablet 7.5 mg PO DAILY 05/29/21 10/10/22 History lisinopril 2.5 mg tablet 2.5 mg PO DAILY 05/29/21 10/10/22 History atorvastatin 20 mg tablet See Rx Instructions .Route 10/19/21 10/10/22 Rx .COMPLEX #90 tabs pen needle, diabetic 32 gauge x #360 ea 02/01/22 09/10/22 Rx (BD Ultra-Fine Doreen Pen Needle) duloxetine 60 mg capsule,delayed See Rx Instructions .Route 02/20/22 10/10/22 Rx release .COMPLEX #90 caps gabapentin 300 mg capsule See Rx Instructions .Route 05/30/22 10/10/22 Rx .COMPLEX #90 caps dulaglutide 0.75 mg/0.5 mL See Rx Instructions .Route 06/06/22 10/10/22 Rx subcutaneous pen injector .COMPLEX #6 mL (Trulicity) blood sugar diagnostic (Channel MTouch #400 strips 08/21/22 09/10/22 Rx Verio test strips) naproxen 375 mg tablet,delayed 375 mg PO .with dinner #14 tabs 08/21/22 10/10/22 Rx release blood-glucose meter,continuous #1 ea 08/26/22 09/10/22 Rx (Dexcom G7 Senior Cognos Developer) blood-glucose sensor (Dexcom G7 #1 ea 08/26/22 09/10/22 Rx Sensor device) multivitamin (Multiple Vitamins 1 tab PO QAM #0 tabs 09/10/22 10/10/22 Rx tablet) thiamine mononitrate (vit B1) 100 100 mg PO QAM #0 tabs 09/10/22 10/10/22 Rx mg tablet (Vitamin B-1 (mononitrate)) L. Acidophilus,Casei,Rhamnosus 1 cap PO DAILY ##0 09/18/22 10/10/22 Rx [Bio-K PLUS] cyanocobalamin (vitamin B-12) 500 1,000 mcg PO DAILY #30 tabs 09/18/22 10/10/22 Rx mcg tablet (Vitamin B-12) diclofenac sodium 1 % topical gel 4 g topical QID #0 grams 09/18/22 10/10/22 Rx gabapentin 100 mg capsule 100 mg PO BID@0800,1400 #0 caps 09/18/22 10/10/22 Rx insulin glargine 100 unit/mL (3 40 unit (0.4 mL) subcut HS #45 mL 09/18/22 10/10/22 Rx mL) subcutaneous pen (Lantus Solostar U-100 Insulin) magnesium oxide 400 mg (241.3 mg 400 mg PO BID #0 tabs 09/18/22 10/10/22 Rx magnesium) tablet metoprolol succinate 25 mg 50 mg PO HS #90 tabs 09/18/22 10/10/22 Rx tablet,extended release 24 hr psyllium husk (aspartame) 3.4 1 ea PO TID #0 grams 09/18/22 10/10/22 Rx gram/5.8 gram oral powder (Metamucil Sugar-Free (aspartame)) tramadol 50 mg tablet 50 - 100 mg PO QID #0 tabs 09/18/22 10/10/22 Rx Exam Const General: ill appearing acutely (Tremulous and slightly diaphoretic) Nutritional Appearance: obese Orientation: oriented to person, oriented to place and other (Denies recollection of suicidal or homicidal statements) [facility] Head: normal to inspection, normocephalic and atraumatic Face and sinus: normal facial exam Eyes General: appearance normal, both eyes and all related structures (Nonicteric) Chest Chest: normal inspection of the chest Resp Effort & Inspection: normal respiratory effort Cardio Rate: tachycardic GI Inspection: obesity Palpation: soft and nontender Neuro General: oriented Patient Orientation: Person and Place, moves all extremities and no focal motor deficits Extrem General: normal to inspection and full ROM Results Labs 10/10/22 19:49 10/10/22 19:49 Labs: Laboratory Results - last 24 hr 10/10/22 10/10/22 10/10/22 19:49 19:49 19:49 WBC 9.18 RBC 4.18 L Hgb 10.9 L Hct 34.9 L MCV 84 MCH 26.1 L MCHC 31.2 L RDW 17.6 H Plt Count 385 MPV 9.4 Immature Gran % 0.4 Neutrophils % 53.7 Lymphocytes % 31.7 Monocytes % 7.0 Eosinophils % 6.2 Basophils % 1.0 Nucleated RBC % 0.0 Absolute Neutrophils 4.93 Absolute Lymphocytes 2.91 Absolute Monocytes 0.64 Absolute Eosinophils 0.57 Absolute Basophils 0.09 Sodium 141 Potassium 4.3 Chloride 105 Carbon Dioxide 20.0 L Anion Gap 16.0 H BUN 53 H Creatinine 2.2 H Est GFR (CKD-EPI 2020) 32.83 Glucose 193 H Calcium 9.0 Total Bilirubin 0.3 AST 17 ALT 23 Alkaline Phosphatase 75 Total Protein 8.5 H Albumin 3.4 Urine Color Urine Clarity Urine pH Ur Specific Shiro Urine Protein Urine Ketones Urine Blood Urine Nitrite Urine Bilirubin Urine Urobilinogen Ur Leukocyte Esterase Urine RBC Urine WBC Ur Epithelial Cells Urine Crystals Urine Bacteria Urine Casts Urine Mucus Ur Culture Indicated? Urine Glucose Salicylates < 2.8 Urine Opiates Screen Urine Methadone Screen Acetaminophen < 2 Ur Barbiturates Screen Ur Tricyclics Screen Ur Amphetamines Screen U Benzodiazepines Scrn Urine Cocaine Screen Ur THC Screen Ethyl Alcohol 173.0 H 10/10/22 10/10/22 22:21 22:21 WBC RBC Hgb Hct MCV MCH MCHC RDW Plt Count MPV Immature Gran % Neutrophils % Lymphocytes % Monocytes % Eosinophils % Basophils % Nucleated RBC % Absolute Neutrophils Absolute Lymphocytes Absolute Monocytes Absolute Eosinophils Absolute Basophils Sodium Potassium Chloride Carbon Dioxide Anion Gap BUN Creatinine Est GFR (CKD-EPI 2020) Glucose Calcium Total Bilirubin AST ALT Alkaline Phosphatase Total Protein Albumin Urine Color Yellow Urine Clarity Clear Urine pH 5.5 Ur Specific Shiro 1.015 Urine Protein 100 H Urine Ketones Negative Urine Blood Negative Urine Nitrite Negative Urine Bilirubin Negative Urine Urobilinogen 0.2 Ur Leukocyte Esterase Negative Urine RBC Negative Urine WBC Negative Ur Epithelial Cells Rare Urine Crystals Negative Urine Bacteria Rare Urine Casts Negative Urine Mucus Negative Ur Culture Indicated? No Urine Glucose Negative Salicylates Urine Opiates Screen Negative Urine Methadone Screen Negative Acetaminophen Ur Barbiturates Screen Positive A Ur Tricyclics Screen Negative Ur Amphetamines Screen Negative U Benzodiazepines Scrn Negative Urine Cocaine Screen Negative Ur THC Screen Negative Ethyl Alcohol Last Vital Signs Temp 36.5 C 10/11/22 11:36 Pulse 117 H 10/11/22 11:36 Resp 20 10/11/22 11:36 BP 186/97 H 10/11/22 11:36 Pulse Ox 99 10/11/22 11:36 PAWSS Have you Been Recently Intoxicated or Drunk Within the Last 30 days?: Yes Have you Ever Experienced Previous Episodes of Alcohol Withdrawal?: Yes Have you ever Experienced Withdrawal Seizures?: Yes Have you ever Experienced Delirium Tremens(DT)s?: Yes Have you ever undergone Alcohol Rehabilitation Treatment (i.e, inpt ot outpatient treatment programs)?: Yes Have you ever Experienced Blackouts?: Yes Have you ever Combined Alcohol with other Downers within the last 90 days?: No Have you ever Combined Alcohol with any other Substance of Abuse during the last 90 days?: No Positive Blood Alcohol level on Presentation? [PCS.BAL]: Yes Evidence of Increased Autonomic Activity (i.e. HR>120, tremor, sweating, agitation, nausea)?: Yes Result: 8 Time Spent Time spent with Patient: 40-54 minutes Time was spent: preparing to see the patient(eg.review tests), obtaining and/or [facility], ordering medications,tests, procedures, indepentently interpreting results and counseling the patient
[2022-10-11] MEDS: PHENobarbital 130 MG/ML VIAL 110 MG IVP ×3 (13:38→23:35)
--- NOTE | 2022-10-11 14:19 | CMSP_ITS ---
Date of service: 10/11/22 Time of Service: 14:19 Care Management Safety Plan Status Status: Interim Reason for Wait Reason for Wait: Medical Clearance Safety Plan Safety Plan: Chief Complaint: Mina presented to the ED by EMS after reportedly making suicidal and homicidal statements. Mina admitted to heavy drinking, reportedly a gallon of vodka daily; he was intoxicated when he made the SI/HI statements, and when he presented to the ED. He is clinically sober at this time, and is actively withdrawing. He is not yet medically cleared due to his history of severe withdrawal; phenobarbital protocol initiated, w/d symptoms are being closely monitored, on CIWA protocol. He will meet with [facility] once he is medically cleared. CM discussed this with Mina, who is agreeable to this plan. He is appropriate and engaged well in interaction. CM continues to follow. In the interim; please note safety plan below to guide patient care while awaiting further assessment and medical clearance.? SAFETY PLAN: 1. Will remain on suicide precautions and in paper clothes or medical patient gown. 2. Will remain in room under direct supervision of one-on-one staff at all times provided by MARIANNE, AEMT filling and stapling machine operator. 3. May have paper cups, plates, finger foods as well as a cardboard spoon with which to eat meals. 4. Follow [facility] Management of the Admitted Behavioral Health Patient policy. 5. Comfort bath system vs shower, supervised, at RN discretion. 6. No personal belongings. 7. No visitors. 8. Phone contact limited, incoming/outgoing calls at RN discretion. 9. Due to VOLUNTARY status, if patient wishes to leave [facility], staff will contact [facility] Crisis Screener ([phone]) and On-Call French Translator ([phone]) as soon as possible. In the event of elopement, notify [facility] Police ([phone]). ? If deemed appropriate for inpatient psychiatric care, safety plan will be established with patient, and care team, to adhere to patient goals, identify restrictions based on behavioral status, address nutrition, and determine allowed personal belongings, tools for hygiene and personal care. As well plan will determine level of activity including ambulation, level of supervision, visitors, and determine privileges based on level of acuity, behaviors and level of engagement by patient.
--- NOTE | 2022-10-11 14:36 | PDOC.CMPRO ---
Date of service: 10/11/22 Time of Service: 14:36 Care Management Progress Note Progress Note Text Progress Note Text: S/O: Mina was lying in bed when CM met with him. He stated that he feels terrible today, and he acknowledged that he is actively withdrawing. He stated that he is interested in stopping his alcohol use, and has been connected with many programs including AA and NA, with continued relapse. Mina was tearful stating that his alcohol use is having a detrimental impact on his life. CM offered a refinery operator vapor recovery unit to meet with him, which he agreed to. CM will contact refinery operator vapor recovery unit tomorrow, as he is actively withdrawing, and not feeling up to talking much today. CM asked Mina about his SI/HI, which he denied. He stated that he made those statements while he was intoxicated, and that he doesn't feel suicidal or homicidal currently. CM explained that he will meet with [facility] once he is medically stable, which he is agreeable to. He expressed understanding about the protocol in place for his safety, including a PSO/CPSO monitoring him. Mina requested that he work with PT once he is feeling better, as he is worried about his mobility declining from being in bed. CM discussed this with the provider, who stated that he can get up and out of bed as soon as he is able, likely after his withdrawal symptoms resolve. He was appropriate and engaged well in conversation. CM will continue to follow. A: Mina is a 62 year old male admitted to [facility] on 10/11/22 with ETOH withdrawal, SI. P: Mina is being closely monitored for alcohol withdrawal, on phenobarbital protocol. He will meet with [facility] once medically stable. He will also meet with the refinery operator vapor recovery unit as soon as he is feeling better. His disposition, including transportation, will depend on the result of his meeting with [facility]. He will follow up with his PCP and discharge plan of care. CM will continue to follow.
[2022-10-11] MEDS: Acetaminophen 325 MG TAB 650 MG PO ×2 (16:13→22:00)
[2022-10-11] MEDS: Insulin Aspart 300 UNITS/3 ML PEN SC (17:13)
[2022-10-11] MEDS: LORazepam 2 MG/ML VIAL 0.5 MG IVP ×2 (18:06→22:00)
[2022-10-12] VITALS (45 sets, daily range): BP systolic 83–164; BP diastolic 52–89; PULSE 71–137; RESP 16–32; TEMP 35.7–38.1; O2SAT 70–99
[2022-10-12] MEDS: dexmedeTOMidine IN 0.9 % NACL 400 MCG/100 ML BTL 14.901 MCG IV ×3 (01:15→18:35)
[2022-10-12] MEDS: Metoprolol CR 25 MG TABCR 50 MG PO (01:16)
[2022-10-12] MEDS: Ondansetron 4 MG/2 ML VIAL IVP (01:48)
[2022-10-12] MEDS: Normal Saline Flush 10 ML SYR IVP ×2 (02:21→21:11)
--- NOTE | 2022-10-12 07:35 | NUR.NOTE ---
Phenobarbitol is still listed as a medication that can be given. RN checks with pharmacy who informs RN that hard stop has been reached as of yesterday. KILN CHARGER will speak to Dr. Torrez about dcing medication.
[2022-10-12] MEDS: Insulin Aspart 300 UNITS/3 ML PEN SC ×4 (08:03→22:38)
--- NOTE | 2022-10-12 08:36 | NUR.NOTE ---
Patient is set up with breakfast tray and is feeding himself.Nursing Note:
[2022-10-12] MEDS: DULoxetine 30 MG CAP 60 MG PO (08:38)
--- NOTE | 2022-10-12 12:25 | W.PM.PROGNOT ---
Date of Service Date of service: 10/12/22 Time of Service: 12:26 Assessment and Plan Assessment and plan (1) Alcohol intoxication: Status: Acute Assessment and plan: NOw status post phenobarbital withdrawal protocol. He reached the hard stop calculated maximum dosing. CIWA scores elevated last PM and he was transferred to the ICU and placed on precedex. Precedex now off and he has scored low on CIWA; 3 and 5. Mental health evaluation when medically cleared. (2) Suicidal ideation: Status: Acute Assessment and plan: He mentioned SI and HI while intoxicated. In the ED he told the provider he didn't recall stating this and had no such thoughts at the time. Mental health to evaluate. (3) Homicidal ideation: Status: Acute Assessment and plan: As above. (4) Type 1 diabetes, controlled, with neuropathy: Status: Chronic Assessment and plan: Cont SS insulin (5) CKD (chronic kidney disease) stage 4, GFR 15-29 ml/min: Status: Chronic Assessment and plan: Creatinine 2.2; down from 2.6 on admission. His basline appears to be 1.7, 1.8. Subjective Subjective Patient reports: tolerating a regular diet and afebrile; denies nausea, vomiting or shortness of breath Interval history since last seen: Pt placed on precedex overnight. This was held just prior to my visit. He was sleepy but responded appropriately. Stated he was hungry. He endorsed chronic bilateral leg pain from thighs distally. He walks/exercises to help ease the discomfort. Exam Const General: cooperative Nutritional Appearance: overweight Orientation: awake (after verbal stimulation) and oriented to person [facility] Head: atraumatic Ears: hearing grossly normal bilaterally Mouth: moist mucous membranes abnormal Eyes General: appearance normal, both eyes and all related structures Sclera: sclerae normal Chest Chest: normal inspection of the chest Resp Effort & Inspection: normal respiratory effort Auscultation: clear to auscultation bilaterally Cardio Rate: tachycardic Rhythm: regular rhythm GI Inspection: normal to inspection and obesity Palpation: soft and nontender Skin General skin exam: no rashes or lesions noted Neuro General: moves all extremities and no focal motor deficits Extrem General: no pedal edema and no calf tenderness Psych Appearance: grossly normal Attitude: cooperative Objective Last Vital Signs Temp 35.7 C L 10/12/22 08:17 Pulse 87 10/12/22 08:17 Resp 24 08/12/23 08:17 BP 99/66 L 10/12/22 08:17 Pulse Ox 97 10/12/22 08:17 PAWSS Have you Been Recently Intoxicated or Drunk Within the Last 30 days?: Yes Have you Ever Experienced Previous Episodes of Alcohol Withdrawal?: Yes Have you ever Experienced Withdrawal Seizures?: Yes Have you ever Experienced Delirium Tremens(DT)s?: Yes Have you ever undergone Alcohol Rehabilitation Treatment (i.e, inpt ot outpatient treatment programs)?: Yes Have you ever Experienced Blackouts?: Yes Have you ever Combined Alcohol with other Downers within the last 90 days?: No Have you ever Combined Alcohol with any other Substance of Abuse during the last 90 days?: No Positive Blood Alcohol level on Presentation? [PCS.BAL]: Yes Evidence of Increased Autonomic Activity (i.e. HR>120, tremor, sweating, agitation, nausea)?: Yes Result: 8 Time Spent with Patient Time Spent with Patient: 25-34 minutes Time was spent: preparing to see the patient(eg.review tests), obtaining and/or reviewing separately otained hiistory, ordering medications,tests, procedures, referring, communicating with other health healthcare facility administrator, indepentently interpreting results, counseling the patient and care coordination
--- NOTE | 2022-10-12 13:44 | PHA.REVIEW2 ---
Pharmacy Admission Review Admission Clinical Review Admission Pharmacy Review: (Updated 10/11/22 @ 07:02 by Leslie White MD) Alcohol intoxication (Acute) Suicidal ideation (Acute) Homicidal ideation (Acute) lactose intolerant Adverse Reaction (Mild, Uncoded 10/10/22 19:53) Diarrhea Resuscitation Status Full Code Height 5 ft 10 in Weight 99.337 kg Pharmacy Admission Review Renal Dosing Renal Dosing: BUN 53 mg/dL (7-18) H 10/10/22 19:49 Creatinine 2.2 mg/dL (0.70-1.30) H 10/10/22 19:49 Medications needing adjustments: Reviewed (crcl ~40, current meds ok) Anticoagulation Anticoagulation: Hgb 10.9 g/dL (13.5-17.5) L 10/10/22 19:49 Hct 34.9 % (40.0-50.0) L 10/10/22 19:49 Plt Count 385 10^3/uL (130-400) 10/10/22 19:49 Creatinine 2.2 mg/dL (0.70-1.30) H 10/10/22 19:49 DVT Prophylaxis: Intervened (not ordered initially, reached out to Dr. Torrez, now has 40 mg q24h) Therapeutic Anticoagulation: N/A Opiate Usage Evaluate Pain Scale/Pains Meds: N/A Relevant Labs Relevant Labs: Sodium 141 mmol/L (136-145) 10/10/22 19:49 Potassium 4.3 mmol/L (3.5-5.1) 10/10/22 19:49 Chloride 105 mmol/L (98-107) 10/10/22 19:49 Electrolytes, C-Reactive P, ESR: Reviewed DM Control DM Control: Reviewed Insulin Dosing, Diabetic Medication: on trulicity at home. sliding scale insulin aspart w/meals while here Cardiac Review BP, HR, EF%: Reviewed (BP running low (likely from phenobarb), last reading 141/77 - home metoprolol restarted last night) QTc Review QTc: Reviewed (no recent EKG, last (09/13/22) QTc = 473) IV to PO Switch IV Medications: Reviewed Home Meds Home Med List reviewed: Reviewed Relevent Home Meds Not ordered & why?: most home meds deferred at this time, pt experiencing significant etoh w/d symptoms yesterday, appears to be improving can likely consider restarting home meds soon. Removed fidaxomicin from home med list, Rx finished last month Current Meds Current Medication Order Review: Reviewed (phenobarb protocol given 10/11 for alcohol withdrawal, reached hard stop yesterday afternoon. subsequently started on precedex which was turned off this morning but appears to have been resumed around noon today)
[2022-10-12] MEDS: Enoxaparin 40 MG/0.4 ML SYR SC (14:44)
--- NOTE | 2022-10-12 15:25 | CMPROGNOTE_ITS ---
Date of service: 10/12/22 Time of Service: 15:25 Care Management Progress Note Progress Note Text Progress Note Text: S/O: Mina was lying in bed when CM met with him. He reported that he is not feeling good today. CM discussed his plan to talk with the success coach, and he would like to wait until he is feeling better. CM will contact [facility] when he becomes medically cleared, to determine if he qualifies for inpatient psychiatric stabilization. Mina reported that he is interested in inpatient alcohol recovery support. He stated that he has had inpatient support in the past and he felt it was helpful. CM will continue to follow. A: Mina is a 62 year old male admitted to [facility] on 10/11/22 with ETOH withdrawal, SI. P: Mina is being closely monitored for alcohol withdrawal, on phenobarbital protocol. He will meet with [facility] once medically stable. He will also meet with the success coach as soon as he is feeling better. His disposition, including transportation, will depend on the result of his meeting with [facility]. He will follow up with his PCP and discharge plan of care. CM will continue to follow.
--- NOTE | 2022-10-12 15:27 | CMSP_ITS ---
Date of service: 10/12/22 Time of Service: 15:28 Care Management Safety Plan Status Status: Interim Reason for Wait Reason for Wait: Medical Clearance Safety Plan Safety Plan: Chief Complaint: Mina presented to the ED by EMS after reportedly making suicidal and homicidal statements. Mina admitted to heavy drinking, reportedly a gallon of vodka daily; he was intoxicated when he made the SI/HI statements, and when he presented to the ED. He is clinically sober at this time, and is actively withdrawing. He is not yet medically cleared due to his history of severe withdrawal; phenobarbital protocol initiated, w/d symptoms are being closely monitored, on CIWA protocol. He will meet with [facility] once he is medically cleared. CM discussed this with Mina, who is agreeable to this plan. He is appropriate and engaged well in interaction. CM continues to follow. In the interim; please note safety plan below to guide patient care while awaiting further assessment and medical clearance.? SAFETY PLAN: 1. Will remain on suicide precautions and in paper clothes or medical patient gown. 2. Will remain in room under direct supervision of one-on-one staff at all times provided by MARIANNE, POULTRY SLAUGHTERER core blower operator. 3. May have paper cups, plates, finger foods as well as a cardboard spoon with which to eat meals. 4. Follow [facility] Management of the Admitted Behavioral Health Patient policy. 5. Comfort bath system vs shower, supervised, at RN discretion. 6. No personal belongings. 7. No visitors. 8. Phone contact limited, incoming/outgoing calls at RN discretion. 9.?Due to VOLUNTARY status,?if patient wishes to leave [facility], staff will contact [facility] Crisis Screener ([phone]) and On-Call Title Camera Operator ([phone]) as soon as possible. In the event of elopement, notify [place] [employer] ([phone]). ? If deemed appropriate for inpatient psychiatric care, safety plan will be established with patient, and care team, to adhere to patient goals, identify restrictions based on behavioral status, address nutrition, and determine allowed personal belongings, tools for hygiene and personal care. As well plan will determine level of activity including ambulation, level of supervision, visitors, and determine privileges based on level of acuity, behaviors and level of engagement by patient.
[2022-10-12 15:46] LABS: Lab Add On Test DONE
[2022-10-12 16:02] LABS: Magnesium 1.3 mg/dL (1.8-2.4)
[2022-10-12] MEDS: MAGNESIUM SULFATE 4 GM/100 ML BAG IVPB (17:43)
[2022-10-12] MEDS: Magnesium Oxide 400 MG TAB PO (17:50)
[2022-10-12] MEDS: Pantoprazole 40 MG TABCR PO (21:11)
[2022-10-12] MEDS: Thiamine 100 MG TAB PO (21:11)
[2022-10-13] VITALS (27 sets, daily range): BP systolic 86–151; BP diastolic 50–83; PULSE 70–101; RESP 11–27; TEMP 35.8–37; O2SAT 80–99
[2022-10-13] MEDS: dexmedeTOMidine IN 0.9 % NACL 400 MCG/100 ML BTL 14.901 MCG IV (00:19)
[2022-10-13] MEDS: Normal Saline 1,000 ML 150 ML IV (01:04)
[2022-10-13 07:02] LABS: Anion Gap 10.9 mmol/L (3-11); BUN 48 mg/dL (7-18); CO2 21.1 mmol/L (21.0-32.0); Calcium 8.5 mg/dL (8.5-10.1); Chloride 103 mmol/L (98-107); Estimated GFR 36.81 (mL/min/1.73m2); Glucose 216 mg/dL (74-106); Magnesium 1.9 mg/dL (1.8-2.4); Potassium 4.5 mmol/L (3.5-5.1); Sodium 135 mmol/L (136-145)
--- NOTE | 2022-10-13 09:05 | CMPROGNOTE_ITS ---
Date of service: 10/13/22 Time of Service: 09:05 Care Management Progress Note Progress Note Text Progress Note Text: S/O: Per MD, Mina is medically cleared today. CM contacted [facility] crisis screener to meet with him, as well as the control and recovery combat rescue. Justen, [facility], met with Mina in person, and cleared Mina from SI/HI precautions. He provided support and outpatient resources, which Mina is interested in. Justen and Mina developed a pro active safety plan, for Mina to reference in the community. Mina met with Keysha, control and recovery combat rescue, who will follow Mina closely in the community. Mina reports feeling de conditioned, therefore he will work with PT tomorrow. He will likely return home vs return to SNF, if recommended. CM will continue to follow. A: Mina is a 62 year old male admitted to [facility] on 10/11/22 with ETOH withdrawal, SI. P: Mina is being closely monitored for alcohol withdrawal, on phenobarbital protocol. He met with [facility] today, and was cleared; he no longer meets criteria for a CPSO/PSO, or SI/HI precautions. He also met with the control and recovery combat rescue, who w ill follow him outpatient. He will likely discharge home, after working with PT, possibly with new orders for PT. He will follow up with his PCP and discharge plan of care. CM will continue to follow.
--- NOTE | 2022-10-13 09:05 | PDOC.CMSAFE ---
Date of service: 10/13/22 Time of Service: 09:06 Care Management Safety Plan Status Status: Interim Reason for Wait Reason for Wait: Medical Clearance Safety Plan Safety Plan: Chief Complaint: Mina presented to the ED by EMS after reportedly making suicidal and homicidal statements. Mina admitted to heavy drinking, reportedly a gallon of vodka daily; he was intoxicated when he made the SI/HI statements, and when he presented to the ED. He is clinically sober at this time, and is actively withdrawing. He is not yet medically cleared due to his history of severe withdrawal; phenobarbital protocol initiated, w/d symptoms are being closely monitored, on CIWA protocol. He will meet with [facility] once he is medically cleared. CM discussed this with Mina, who is agreeable to this plan. He is appropriate and engaged well in interaction. CM continues to follow. In the interim; please note safety plan below to guide patient care while awaiting further assessment and medical clearance.? SAFETY PLAN: 1. Will remain on suicide precautions and in paper clothes or medical patient gown. 2. Will remain in room under direct supervision of one-on-one staff at all times provided by MARIANNE, AGENCY CASHIER grinder set up operator internal. 3. May have paper cups, plates, finger foods as well as a cardboard spoon with which to eat meals. 4. Follow [facility] Management of the Admitted Behavioral Health Patient policy. 5. Comfort bath system vs shower, supervised, at RN discretion. 6. No personal belongings. 7. No visitors. 8. Phone contact limited, incoming/outgoing calls at RN discretion. 9.?Due to VOLUNTARY status,?if patient wishes to leave [facility], staff will contact [facility] Crisis Screener ([phone]) and On-Call Manager Transfer ([phone]) as soon as possible. In the event of elopement, notify [place] [employer] ([phone]). ? If deemed appropriate for inpatient psychiatric care, safety plan will be established with patient, and care team, to adhere to patient goals, identify restrictions based on behavioral status, address nutrition, and determine allowed personal belongings, tools for hygiene and personal care. As well plan will determine level of activity including ambulation, level of supervision, visitors, and determine privileges based on level of acuity, behaviors and level of engagement by patient.
[2022-10-13] MEDS: Folic Acid 1 MG TAB PO (09:29)
[2022-10-13] MEDS: Propranolol 20 MG TAB PO ×2 (09:29→21:06)
[2022-10-13] MEDS: LORazepam 0.5 MG TAB PO (09:29)
[2022-10-13] MEDS: Ketorolac 30 MG/ML VIAL IVP (09:29)
[2022-10-13] MEDS: DULoxetine 30 MG CAP 60 MG PO (09:29)
[2022-10-13] MEDS: Normal Saline Flush 10 ML SYR IVP (09:30)
--- NOTE | 2022-10-13 09:52 | PT.INIE ---
PT Notes Visit Reasons: ETOH Withdrawl Inpatient Physical Therapy Evaluation Date: 10/13/22 Referring Doctor: Chauncey Lim MD PT Orders: PT CONSULT: Non-urgent Precautions: Standard, fall risk Patient Profile/Admitting Diagnosis: 63 y o male admitted to ICU for ETOH withdrawal protocol, request of PT for mobility assist return. Condition in presence of comordbidities as listed below. Currently suffering from ana argelia and elbow pain post L IV infiltrate and having been handcuffed aggressively last night. PMHX: All Active Problems?(Updated 10/12/22 @ 14:47 by Rima Rios NP) Discharge planning issues (Acute) DVT prophylaxis (Acute) Alcohol intoxication (Acute) Suicidal ideation (Acute) Homicidal ideation (Acute) B12 deficiency (Acute) Sinus tachycardia (Acute) Thrombosis superficial vein, arm, acute (Acute) Anemia (Chronic) Leukocytosis (leucocytosis) (Acute) General weakness (Acute) Gallstones (Acute) Kidney lesion, [place], left (Acute) Microcytic anemia (Acute) Colitis due to Clostridium difficile (Acute) Alcohol use disorder (Chronic) Dehiscence of operative wound (Acute) Subsequent encounterSkin ulcer of scrotum (Acute) De Quervain's tenosynovitis, left (Acute) 40 mg Depo-Medrol injection: 04/04/2022Metabolic acidosis (Acute) Essential hypertension (Acute) CKD (chronic kidney disease) stage 4, GFR 15-29 ml/min (Chronic) Lamellar macular hole of both eyes (Acute 10/25/21) Type 1 diabetes, controlled, with neuropathy (Chronic ~05/2017) Adult onset, diagnosed 05/2017 [facility] End[address] Dr. Douglas--recommend GLP1 Personal goal A1C <7%Secondary hyperparathyroidism (Acute ~05/2021) [place] [facility] [place] Elevated PSA (Acute) Family history of prostate cancer (Chronic) FHyperlipidemia (Chronic) Hypertension (Chronic) RX Lisinopril (stopped due to creatinine) Medical History? Alcohol intoxication (~12/02/21) Bilateral carpal tunnel syndrome Carpal tunnel syndrome on both sides +Tinel & Phalens 1Chronic gingivitis, plaque induced DentistHistory of alcohol use disorder since 1989 with intermittent sobrietyHistory of elevated PSA Per [facility] Records--01/14/2019 6.41, 04/28/2018 6.32; +Fam hx prostate cancer in FHistory of opioid abuse s/p surgeries; visiting brother 08/2021 ([facility] admission)History of renal cell cancer s/p nephrectomyHyperkalemia (~05/2021) 05/29/21 [facility] [place]rologyLesion of bone of left forearm proximal radius lesionOsteoarthritis of elbows, bilateral Polyneuropathy associated with underlying disease DMSolitary left kidney [facility] [place] ([place] 07/2020); s/p nephrectomy on R 2004 renal cell cancer; partial nephrectomy on L 2007Tubular adenoma of colon 08/2018 [facility]oscopy [facility]; recall 5yType 1 diabetes mellitus without complications Surgical History? H/O arthroscopy of knee Remotely--both knees at some point; he cannot recall what, but thinks meniscalH/O partial nephrectomy (~04/2007) leftH/O skin graft [facility] [place] Scrotal Abscess 07/15/22 Skin Graft with Bolster removal History of nephrectomy, right (~03/2004) Renal cell cancer Social History/Home Situation: Unemployed. Lives in a private apt, alone, lives independently at baseline, 2 steps to enter with rail on left. Apartment is one level living. Current Functional Limitations: Requires assist for transfers, and standing attempts, RW dependent. Equipment Owned/DME: None Subjective: 7/10 all over. He has been here before, knows he needs to get is body moving. Does not feel he can get out of any lower chair, and is nervous to do so. Objective: General Observation: Lying in hospital bed reclined, telemetry in place, IV cubitol fossa, perspiring, swollen left elbow with limited motion post infiltrate Mental Status: Alert & O x 3 Pain: 7/10 all over Vital Signs: BP 151/79, HR 94 ROM: Right Upper Extremity: Argelia 90 deg flex and scaption, abd 45 deg, elbow 10-100 deg, wrist 30 deg flex, 10 deg ext, fingers hypomobile and stiff Left Upper Extremity: Argelia 90 deg flex and scaption, abd 40 deg, elbow 40-80 deg, wrist 20 def flex, 5 deg ext, fingers swollen and hypomoobile Right Lower Extremity: Hip 90 deg, flex knee 10-90 deg, ankle grossly hypomobile and stiff Left Lower Extremity: Hip 90 deg, flex knee 10-90 deg, ankle grossly hypomobile and stiff Strength: Right Upper Extremity: Grossly 4+/5, pain at elbow and shoulders globally Left Upper Extremity: Grossly 4+/5, pain at elbow and shoulders globally Right Lower Extremity: Grossly 5/5 throughout, shaky Left Lower Extremity: Grossly 5/5 throughout, shaky Sensation: WNL Bed Mobility/Transfers: Independent supine w HOB 45 deg elevation, to EOB Sit from elevated bed to stand at RW, wit Min A x 1, CG x 1 - verbal cues to stand tall and use arms Stand to sit at lower chair with Min A x 1 to control descent Bed to chair Min A x 1 Gait: Unable Balance: Static Sitting: Good Dynamic Sitting: fair Static Standing: Poor with RW Dynamic Standing: Poor with RW Special Tests: Mobility Limitations Standardized Measure [facility] AM-PAC 6 clicks Basic Mobility Inpatient Short Form: 54% disability Informed Consent/Education: Patient instructed in purpose of PT consult and plan of care. Treatment: Therapeutic Procedures [id number] min: ROM activities to reduce joint stiffness and restore joint function for functional return Seated march x 20 Seated LAQ x 10 Setaed HR x 10 Seated argelia elevation x 10 Seated bicep curl x 10 Seated hip abd x 10 Seated toe raise x 20 Seated scap squeeze x 10 Seated scap circles x 10 Seated wrist circles x 10 Assessment: Patient is a 62 year old male referred to physical therapy services with the diagnosis of ETHO withdrawal, presenting with impairments of poor balance, global UE and LE moint mobility limitations, L elbow swelling and mobility deficits, UE weakness, and motor control dysfunction due to influence of withdrawal. Impairements limiting patients ability to functional at premorbid independent level, currently requiring Delfino for transfers, unable to ambulate, dependent on RW, can't stable with stability or proper motor control, can not STS without assist. AMPAC score of 54% disability Patient is assessed as a Moderate 53754 complexity based on the above history, examination, unstable medical presentation, and easy decision making Goals: Goals X1 week 1. Supine-Sit independent 2. Sit-Supine independent 3. Sit-Stand independent 4. Stand-Sit independent 5. Bed-Chair independent 6. Chair-Bed independent 7. Gait independent 8. Stairs independent 9. Independent with home exercise program independent 10. Balance Good with all functional movements, no fall risk Plan of Care/Treatment Plan: 1-2x/day, 7 days/week x 1 week. Plan of care has been reviewed with the IC ENGINEER providing the service under Physical Therapy direction. Initiate Physical Therapy intervention for strengthening, bed mobility, transfers, gait, stairs, balance training, use of assistive device. DISCHARGE RECOMMENDATIONS: SNF for continued rehabilitation if patient does not achieve above goals, as he is resides in an independent living situation. TREATMENT CODE/TIME: 40 min direct and total, 9:30-10:10, [id number], [id number]
[2022-10-13] MEDS: Insulin Aspart 300 UNITS/3 ML PEN SC ×3 (12:07→21:06)
--- NOTE | 2022-10-13 14:47 | W.PM.PROGNOT ---
Date of Service Date of service: 10/13/22 Time of Service: 14:54 Assessment and Plan Assessment and plan (1) Alcohol intoxication: Status: Acute Assessment and plan: Now status post phenobarbital withdrawal protocol. He reached the hard stop calculated maximum dosing. Precedex now off Propranolol initiated. Mental health evaluation today. (2) Suicidal ideation: Status: Acute Assessment and plan: He mentioned SI and HI while intoxicated. In the ED he told the provider he didn't recall stating this and had no such thoughts at the time. Mental health evaluating. (3) Homicidal ideation: Status: Acute Assessment and plan: As above. (4) Type 1 diabetes, controlled, with neuropathy: Status: Chronic Assessment and plan: Cont SS insulin (5) CKD (chronic kidney disease) stage 4, GFR 15-29 ml/min: Status: Chronic Assessment and plan: Creatinine 2.0; down from 2.6 on admission. His basline appears to be 1.7, 1.8. (6) Discharge planning issues: Status: Acute Assessment and plan: Pt is amenable to dual diagnosis admission for substance abuse and mental health/depression and anxiety. Subjective Subjective Patient reports: afebrile; denies diarrhea, nausea, vomiting or shortness of breath Interval history since last seen: Multiple musculoskeletal complaints of pain. He is anxious to get up and work with PT + tremor Exam Const General: cooperative and no acute distress Nutritional Appearance: overweight Orientation: awake (after verbal stimulation), oriented to person, oriented to place and oriented to time [facility] Head: atraumatic Ears: hearing grossly normal bilaterally Mouth: moist mucous membranes abnormal Eyes General: appearance normal, both eyes and all related structures Sclera: sclerae normal Chest Chest: normal inspection of the chest Resp Effort & Inspection: normal respiratory effort Auscultation: clear to auscultation bilaterally Cardio Rate: tachycardic Rhythm: regular rhythm GI Inspection: normal to inspection and obesity Palpation: soft and nontender Skin General skin exam: no rashes or lesions noted Neuro General: moves all extremities and no focal motor deficits Motor: tremor (Hands) Extrem General: no pedal edema and no calf tenderness Psych Appearance: grossly normal Affect: sad Attitude: cooperative Objective Last Vital Signs Temp 36.3 C L 10/13/22 13:48 Pulse 86 10/13/22 09:25 Resp 11 L 10/13/22 09:25 BP 151/79 H 10/13/22 09:25 Pulse Ox 99 10/13/22 09:25 Laboratory Results - last 24 hr 10/10/22 10/12/22 10/13/22 19:49 19:49 05:20 Sodium 135 L Potassium 4.5 Chloride 103 Carbon Dioxide 21.1 Anion Gap 10.9 BUN 48 H Creatinine 2.0 H Est GFR (CKD-EPI 2020) 36.81 Glucose 216 H Calcium 8.5 Magnesium 1.3 L 1.9 Add-On Test Request DONE PAWSS Have you Been Recently Intoxicated or Drunk Within the Last 30 days?: Yes Have you Ever Experienced Previous Episodes of Alcohol Withdrawal?: Yes Have you ever Experienced Withdrawal Seizures?: Yes Have you ever Experienced Delirium Tremens(DT)s?: Yes Have you ever undergone Alcohol Rehabilitation Treatment (i.e, inpt ot outpatient treatment programs)?: Yes Have you ever Experienced Blackouts?: Yes Have you ever Combined Alcohol with other Downers within the last 90 days?: No Have you ever Combined Alcohol with any other Substance of Abuse during the last 90 days?: No Positive Blood Alcohol level on Presentation? [PCS.BAL]: Yes Evidence of Increased Autonomic Activity (i.e. HR>120, tremor, sweating, agitation, nausea)?: Yes Result: 8 Time Spent with Patient Time Spent with Patient: 25-34 minutes Time was spent: preparing to see the patient(eg.review tests), obtaining and/or reviewing separately otained hiistory, ordering medications,tests, procedures, referring, communicating with other health childcare provider, indepentently interpreting results, counseling the patient and care coordination
--- NOTE | 2022-10-13 16:57 | PDOC.MHCN_ITS ---
Date of service: 10/13/22 Time of Service: 02:00 PHQ-9 Over the last 2 weeks, how often have you been bothered by any of the following problems? 1. Little interest or pleasure in doing things: not at all 2. Feeling down, depressed, or hopeless: not at all 3. Trouble falling or staying asleep, or sleeping too much: not at all 4. Feeling tired or having little energy: several days 5. Poor appetite or overeating: not at all 6. Feeling bad about yourself - or that you are a failure or have let yourself and your family down: not at all 7. Trouble concentrating on things, such as reading the newspaper or watching television: not at all 8. Moving or speaking so slowly that other people could have noticed? - Or the opposite - being so fidgety or restless that you have been moving around a lot more than usual: not at all 9. Thoughts that you would be better off or of hurting yourself in some way: not at all Total score: 1 Source: Developed by Drs. John Jacobs, Aracelis Kimbrough, Matias Christensen and colleagues, with an educational min from [employer]. Suicide Severity Rate CSSRS Have you wished you were or wished you could go to sleep and not wake up?: No Have you actually had any thoughts of killing yourself?: No CSSRS2 Have you been thinking about how you might do this?: No Have you had these thoughts and had some intention of acting on them?: No Have you started to work out or worked out the details of how to kill yourself? Do you intend to carry out this plan?: No CSSRS3 Have you ever done anything, started to do anything or prepared to do anything to end your life?: No CSSRS4 Was this within the past three months?: No Screening Score Total Score: 0 Screening: Negative Mental Health Emergency Note Release [facility] release signed:: Yes Reason for Visit crisis assessment In the last 2 weeks has the pt presented for ES prior to today?: No Non Suicidal Self Injury Current: No History: No Safety Risk/Harm to Self or Others Current Ideation to Harm Self or Others: No Risk: Does risk to harm exist?: No Risk: Low Risk Duty to warn indicated: No Asssessment/Mental Status Appearance: Other Attitude: Cooperative and Friendly Behavior: Unremarkable Speech: Normal Affect: Normal Mood: Stressed and Anxious Thought process: Goal directed Hallucinations: No Delusions: No Attention: Unremarkable Perception: Not impaired Orientation: Fully orientated Memory: Intact Insight: Fair Judgement: Fair Neurovegetative Symptoms Sleep: No change Appetitie: No change Interests: No change Energy: Decrease Libido: Not applicable Substance Use: ETOH dependence Drug Issues: Other Do you use nicotine?: No Have you used substances in the last 7 days?: yes, treatment of alcoholism Additional Issues: Assaultive/Threatening Behavior: No Medical Concerns: Yes Client engaged in active self harm w/weapon: No Threatening to run away: No Child reported abuse/neglect: No Voluntarily presenting for services: Yes Domestic violence is a concern: No Extreme Psychosis or extreme behavior is present: No Impression Client is being trewated for alcoholism and is presently detoxing in ICU Plan/Disposition Recommended Disposition: [facility] Services [facility] Services: Therapy and Other. Plan: Client will be referred to outpatient services with [facility] Reports/communication Outcome discussed with: ED/Personnel and Other
--- NOTE | 2022-10-13 17:54 | NUR.NOTE ---
Nursing Note: received pt from ICU
[2022-10-13] MEDS: Pantoprazole 40 MG TABCR PO (21:05)
[2022-10-13] MEDS: Acetaminophen 325 MG TAB 650 MG PO (21:05)
[2022-10-13] MEDS: Thiamine 100 MG TAB PO (21:06)
[2022-10-13] MEDS: Metoprolol 50 MG TAB PO (21:06)
[2022-10-14] MEDS: LORazepam 1 MG TAB PO (02:37)
[2022-10-14 06:24] VITALS: BP 170/90; PULSE 106; RESP 18; TEMP 37.9; O2SAT 95
[2022-10-14] MEDS: DULoxetine 30 MG CAP 60 MG PO (07:54)
[2022-10-14] MEDS: Folic Acid 1 MG TAB PO (07:54)
[2022-10-14] MEDS: Propranolol 20 MG TAB PO (07:54)
[2022-10-14] MEDS: Insulin Aspart 300 UNITS/3 ML PEN SC ×2 (07:55→11:39)
--- NOTE | 2022-10-14 09:01 | NUR.NOTE ---
Nursing Note: pt requesting Tramadol for bilateral knee pain, spoke with charge
--- NOTE | 2022-10-14 09:32 | OTIE_ITS ---
Occupational Therapy Notes Inpatient Occupational Therapy Evaluation Date: 10/14/22 Referring Doctor: Dr. Torrez OT Orders: Non Urgent Precautions: Fall, Standard, full PATIENT PROFILE/ADMITTING DIAGNOSIS: Pt is a 62 year old male who presented to the ED and was admitted to the ICU originally with alcohol intoxication, suicidal ideation, homicidal ideation, B12 Deficiency, sinus tachycardia, fever, anemia, hypomagnesemia, hyponatremia, generalized weakness. Past Medical History: All Active Problems?(Updated 10/12/22 @ 14:47 by Rima Rios NP) Discharge planning issues (Acute) DVT prophylaxis (Acute) Alcohol intoxication (Acute) Suicidal ideation (Acute) Homicidal ideation (Acute) B12 deficiency (Acute) Sinus tachycardia (Acute) Thrombosis superficial vein, arm, acute (Acute) Anemia (Chronic) Leukocytosis (leucocytosis) (Acute) General weakness (Acute) Gallstones (Acute) Kidney lesion, [place], left (Acute) Microcytic anemia (Acute) Colitis due to Clostridium difficile (Acute) Alcohol use disorder (Chronic) Dehiscence of operative wound (Acute) Subsequent encounterSkin ulcer of scrotum (Acute) De Quervain's tenosynovitis, left (Acute) 40 mg Depo-Medrol injection: 04/04/2022Metabolic acidosis (Acute) Essential hypertension (Acute) CKD (chronic kidney disease) stage 4, GFR 15-29 ml/min (Chronic) Lamellar macular hole of both eyes (Acute 10/25/21) Type 1 diabetes, controlled, with neuropathy (Chronic ~05/2017) Adult onset, diagnosed 05/2017 [facility] Endo Dr. Douglas--recommend GLP1 Personal goal A1C <7%Secondary hyperparathyroidism (Acute ~05/2021) [place] [facility] [place] Elevated PSA (Acute) Family history of prostate cancer (Chronic) FHyperlipidemia (Chronic) Hypertension (Chronic) RX Lisinopril (stopped due to creatinine) Medical History? Alcohol intoxication (~12/02/21) Bilateral carpal tunnel syndrome Carpal tunnel syndrome on both sides +Tinel & Phalens 1Chronic gingivitis, plaque induced DentistHistory of alcohol use disorder since 1989 with intermittent sobrietyHistory of elevated PSA Per [place] Records--01/14/2019 6.41, 04/28/2018 6.32; +Fam hx prostate cancer in FHistory of opioid abuse s/p surgeries; visiting brother 08/2021 ([facility] admission)History of renal cell cancer s/p nephrectomyHyperkalemia (~05/2021) 05[place] [facility] [place]ion of bone of left forearm proximal radius lesionOsteoarthritis of elbows, bilateral Polyneuropathy associated with underlying disease DMSolitary left kidney [facility] [place] s/p nephrectomy on R 2004 renal cell cancer; partial nephrectomy on L 2007Tubular adenoma of colon 08/2018 [facility]oscopy [facility]; recall 5yType 1 diabetes mellitus without complications Surgical History? H/O arthroscopy of knee Remotely--both knees at some point; he cannot recall what, but thinks meniscalH/O partial nephrectomy (~04/2007) leftH/O skin graft [facility] [place] Scrotal Abscess 07/15/22 Skin Graft with Bolster removal History of nephrectomy, right (~03/2004) Renal cell cancer Social History/Home Situation: Pt states that he lives alone and notes that he is able to perform his ADLs at home but notes that his knees are his biggest limiting factor at this time. Equipment owned/DME: FWW SUBJECTIVE: Pt was sitting in chair when OT arrived. He states that he is doing well, he notes that he is (I) once he returned home but reports that he does hav e difficulty with his functional mobility at this time. OBJECTIVE: General Observation: Pleasant, IV in (L) UE Mental Status: A&Ox4 Pain: c/o pain in (B) knees/LE ROM: RUE AROM WFL L UE AROM WFL STRENGTH: RUE 3+/5 throughout LUE 3+/5 throughout FUNCTIONAL MOBILITY/ADLS: Transfers with FWW BATHING seated in chair with max (A) set up and clean up Bathing UE (I) UE Bathing LE Mod (A) LE DRESSING Dressing UE Min (A) don and doffing hospital gown Dressing LE (I) don and doffing (B) socks BALANCE: Static sitting Normal Dynamic Sitting Normal SPECIAL TESTS: Daily Activity Limitations Standardized Measure [facility] AM -PAC ?6 clicks? Daily Activity Inpatient Short Form: Raw score: 22 Standardized score: 47.10 CMS score: 25.80% INFORMED CONSENT/EDUCATION: Pt instructed in purpose of OT Consult and plan of care. ASSESSMENT: Patient is a 62-year-old male referred to occupational therapy services with diagnosis of alcohol intoxication, suicidal ideation, homicidal ideation, B12 Deficiency, sinus tachycardia, fever, anemia, hypomagnesemia, hyponatremia, generalized weakness. Patient presents with clinical signs and symptoms consistent with dx, as demonstrated by the following impairment level findings/ functional limitations: Impairments in ADL/IADL and leisure activities, pain in (B) elbows which he reports was from being arrested, (B) LE pain in knees, decreased functional activity tolerance, decreased strength. AMPA score 22 Patient is assessed as a Low 56449 complexity based on the following: History: see above Examination: see functional limitations as noted above Presentation: evolving Decision Making: AMPAC score 22 GOALS Goals x1 week 1. Grooming- standing at sink (I) with FWW no LOB 2. Dressing seated (I) 3. Bathing standing at sink (I) with UE/LE 4. Toileting on toilet (I) 5. Eating (I) PLAN OF CARE/TREATMENT PLAN: 1x/day, 5 days/ week x 1week Initiate Occupational Therapy Services for bathing, dressing, grooming, toileting, eating, transfer training. DISCHARGE RECOMMENDATIONS Home with HH vs. SNF TREATMENT TIME/MINUTES/CODES [id number], 20 minutes Tnaya Baron OTR/L [facility] [place], [place]
--- NOTE | 2022-10-14 10:33 | DSE_ITS ---
Date of service: 10/14/22 Time of Service: 10:38 DS: Diagnosis Discharge Diagnosis (1) Alcohol intoxication: Status: Acute Asessment and Plan: History of alcohol abuse disorder with previous hospitalizations for withdrawal. He reached the maximum calculated safe dose of phenobarbital but still showed signs/symptoms of withdrawal. He was placed on precedex. He completed withdrawal and medically cleared. Mental health evaluated him and he will receive community services for his substance abuse and depression/anxiety. (2) Suicidal ideation: Status: Acute Asessment and Plan: He does not recall stating or having any SI or HI; he was intoxicated at the time. Denies SI or HI currently. Cleared by mental health for home with community services. (3) Homicidal ideation: Status: Acute Asessment and Plan: As above. (4) Type 1 diabetes, controlled, with neuropathy: Status: Chronic Asessment and Plan: Resume home regimen. (5) CKD (chronic kidney disease) stage 4, GFR 15-29 ml/min: Status: Chronic Asessment and Plan: He is currently at his baseline renal function. Encourage hydration and avoid nephrotoxic agents. (6) Ambulatory dysfunction: Status: Acute Asessment and Plan: He has stated, during this admission, that he has pain in both legs from thighs to ankles. He stated that walking/exercise would usually help this. He also stated that his right knee pain is what particularly hinders his ambulation. Tramadol prn has helped. PT evaluated him. He states even after a stay in a SNF last year for rehab, his knee pain did not improve. Referral made to orthopedics for evaluation. Discharge Plan Disposition Patient Disposition: Home Condition: Improving Discharge Details Reason For Visit: ETOH Withdrawl Admit Date/Time: 10/11/22 10:25 Admit Provider: Chauncey Torrez Attending Provider: Chauncey Torrez Primary Care Provider: Mel Llamas Hospital Course Hospital Course: This is a 62-year-old male patient with history of alcohol use disorder, diabetes mellitus type 1 who while intoxicated the night before admission made suicidal and homicidal statements.? Law enforcement did get involved and he was transported to the emergency department for evaluation.? At this point his blood alcohol was still elevated at 180 but he was experiencing withdrawal symptoms as he is a heavy daily drinker.? He was started on phenobarbital protocol.? The rest of his medical evaluation was unremarkable.? He remained in the emergency department overnight with hopes that in the morning he would be sober and not experiencing withdrawal having responded to the phenobarb but unfortunately he was still experiencing withdrawal symptoms so hospitalist services was contacted and he was admitted to the medical surgical unit for acute alcohol withdrawal. See Diagnosis PCP follow up scheduled. Referred to orthopedics for knee eval. Home Meds and New Rx's Prescriptions: New tramadol 50 mg Tablet 100 mg PO Q6H PRN PRNQty: 30 0RF Rx Instructions: May take one tab if pain controlled with that lower dose propranolol 20 mg Tablet 20 mg PO BID Qty: 60 0RF Continued duloxetine 60 mg capsule,delayed release(DR/EC) See Rx Instructions .ROUTE .COMPLEX Qty: 90 3RF Dose Instruction: TAKE 1 CAPSULE BY MOUTH EVERY MORNING Rx Instructions: TAKE 1 CAPSULE BY MOUTH EVERY MORNING Trulicity 0.75 mg/0.5 mL pen injector See Rx Instructions .ROUTE .COMPLEX Qty: 6 0RF Dose Instruction: INJECT 0.5ML UNDER THE SKIN ONCE WEEKLY Rx Instructions: INJECT 0.5ML UNDER THE SKIN ONCE WEEKLY naproxen 375 mg tablet,delayed release (DR/EC) 375 mg PO .with dinner Qty: 14 0RF Rx Instructions: Post-op pain chlorthalidone 15 mg tablet 7.5 mg PO DAILY Patient Comments: 05/29/21 visit lisinopril 2.5 mg tablet 2.5 mg PO DAILY Patient Comments: 05/29/21 office visit baking soda PO Rx Instructions: 1/2 teaspoon per day due to metabolic acidosis atorvastatin 20 mg tablet See Rx Instructions .ROUTE .COMPLEX Qty: 90 3RF Dose Instruction: TAKE 1 TABLET BY MOUTH EVERY NIGHT AT BEDTIME FOR CHOLESTEROL OR DIABETES Rx Instructions: TAKE 1 TABLET BY MOUTH EVERY NIGHT AT BEDTIME FOR CHOLESTEROL OR DIABETES gabapentin 300 mg capsule See Rx Instructions .ROUTE .COMPLEX Qty: 90 0RF Dose Instruction: TAKE 1 CAPSULE BY MOUTH AT BEDTIME NEEDED FOR NERVE PAIN INLEGS Rx Instructions: TAKE 1 CAPSULE BY MOUTH AT BEDTIME NEEDED FOR NERVE PAIN INLEGS multivitamin [Multiple Vitamins] Tablet 1 tab PO QAM Qty: 0 0RF thiamine mononitrate (vit B1) [Vitamin B-1 (mononitrate)] 100 mg Tablet 100 mg PO QAM Qty: 0 0RF cyanocobalamin (vitamin B-12) [Vitamin B-12] 500 mcg Tablet 1,000 mcg PO DAILY Qty: 30 0RF gabapentin 100 mg Capsule 100 mg PO BID@0800,1400 Qty: 0 0RF diclofenac sodium 1 % Gel 4 g topical QID Qty: 0 0RF Rx Instructions: apply to both knees QID magnesium oxide 400 mg (241.3 mg magnesium) Tablet 400 mg PO BID Qty: 0 0RF Metamucil Sugar-Free (aspart) 3.4 gram/5.8 gram Powder 1 ea PO TID Qty: 0 0RF L. Acidophilus,Casei,Rhamnosus [Bio-K Plus] 1 cap PO DAILY Qty: 0 0RF metoprolol succinate 25 mg tablet extended release 24 hr 50 mg PO HS Qty: 90 3RF insulin glargine [Lantus Solostar U-100 Insulin] 100 unit/mL (3 mL) insulin pen 40 unit subcut HS MDD 46 units daily Qty: 45 3RF Rx Instructions: DMT1 Discontinued tramadol 50 mg Tablet 50 - 100 mg PO QID Qty: 0 0RF No Action (DME) lancets Misc See Rx Instructions .MEDSUPPLY Rx Instructions: As directed to check blood glucose four times daily. On insulin. Dispense covered brand. (DME) OneTouch Verio test strips Strip See Rx Instructions .ROUTE .COMPLEX Qty: 400 0RF Dose Instruction: USE TO TEST BLOOD GLUCOSE FOUR TIMES DAILY Rx Instructions: USE TO TEST BLOOD GLUCOSE FOUR TIMES DAILY (DME) pen needle, diabetic [BD Ultra-Fine Doreen Pen Needle] 32 gauge x 5/32 needle See Rx Instructions .ROUTE .MEDSUPPLY Qty: 360 3RF Rx Instructions: BD Ultrafine 32G X 6mm, 4x/day for goal A1C<7 for E10.9 (DME) Dexcom G7 Photovoltaic Fabrication Technician Misc See Rx Instructions .ROUTE Qty: 1 0RF Rx Instructions: As directed (DME) Dexcom G7 Sensor Device See Rx Instructions .ROUTE Qty: 1 0RF Rx Instructions: As directed Discharge Instructions Instructions: Alcohol Withdrawal (DC) Stand Alone Forms: Nursing Discharge Form Referrals: Abhishek De Paz MD [ [facility] STAFF PHYSICIAN] - 10/31/22 10:45 am (Chronic knee pain) Mel Llamas SALES APPOINTMENT COORDINATOR [Primary Care Provider] - 10/24/22 3:15 pm Activity:: Activity as Tolerated Equipment/Supplies:: No Equipment Needed Diet:: resume home diet Discharge Orders Discharge Orders: Discharge Order (Routine); Ordered 10/14/22 Ordered By: Chauncey Torrez DS: Summary Time Spent with Patient providing and/or coordinating discharge services: Greater than 30 minutes Status at Discharge Functional status at discharge: uses cane/walker Overall status at discharge: patient is progressing back to baseline Mental Status: mental status grossly normal Speech and Movement: speech clear Mood: anxious mood Affect: normal affect Exam Const General: cooperative and no acute distress Nutritional Appearance: overweight Orientation: awake (after verbal stimulation), oriented to person, oriented to place and oriented to time HENMT Head: atraumatic Ears: hearing grossly normal bilaterally Mouth: moist mucous membranes abnormal Eyes General: appearance normal, both eyes and all related structures Sclera: sclerae normal Chest Chest: normal inspection of the chest Resp Effort & Inspection: normal respiratory effort Auscultation: clear to auscultation bilaterally Cardio Rate: tachycardic Rhythm: regular rhythm GI Inspection: normal to inspection and obesity Palpation: soft and nontender Skin General skin exam: no rashes or lesions noted Neuro General: moves all extremities and no focal motor deficits Motor: tremor (Hands / improved) Extrem General: no pedal edema and no calf tenderness Right lower extremity: no cyanosis, no edema and joint enlargement noted (mild hypertrophy of knee. No erythema or warmth.) Psych Appearance: grossly normal Mental Status: mental status grossly normal Speech and Movement: speech clear Mood: anxious mood Affect: normal affect Attitude: cooperative DS: Data Vitals/I&O Vitals and I&O: Vital Signs Temperature 37.9 C H 10/14/22 06:24 Temperature Source Tympanic 10/14/22 06:24 Pulse 106 H 10/14/22 06:24 Pulse Rhythm Regular 10/14/22 08:53 Pulse 98 H 10/13/22 15:00 Respiratory Rate 18 10/14/22 06:24 Respiratory Effort Normal, Non-Labored 10/14/22 08:53 Respiratory Depth Normal 10/14/22 08:53 Respiratory Pattern Normal 10/14/22 08:53 Blood Pressure 170/90 H 10/14/22 06:24 Blood Pressure Mean 88 10/13/22 14:23 Blood Pressure Position Supine 10/13/22 13:48 Pulse Oximetry 95 10/14/22 06:24 Oxygen Delivery Method Room Air 10/14/22 06:24 Oxygen Flow Rate 0 10/14/22 06:24 Pain Level 5 10/14/22 08:53 Comment NC in mouth in support of sleep apnea 10/11/22 05:00 Intake & Output 10/13/22 10/13/22 10/14/22 11:59 23:59 11:59 Intake Total 1174.296 / 1654.296 480 / 1654.296 600 / 600 Output Total 1650 / 5 425 / 2075 1475 / 1475 Balance -475.704 / -420.704 55 / -420.704 -875 / -875 Intake: IV 1174.296 / 1174.296 Oral 480 / 480 600 / 600 Output: Urine 165 / 5 425 / 2075 1475 / 1475 Other: Urine Color Yellow Yellow Pale Yellow Urine Appearance Clear Cloudy Clear Urine Odor Normal None Comment pt voided at this time Independently voiding to the urinal. Stool Size Large Stool Characteristics Soft Formed Voiding Methods Urinal Urinal Urinal PFSH All Active Problems (Updated 10/14/22 @ 13:41 by Chauncey Torrez MD) Ambulatory dysfunction (Acute) Discharge planning issues (Acute) DVT prophylaxis (Acute) Alcohol intoxication (Acute) Suicidal ideation (Acute) Homicidal ideation (Acute) B12 deficiency (Acute) Sinus tachycardia (Acute) Thrombosis superficial vein, arm, acute (Acute) Anemia (Chronic) Leukocytosis (leucocytosis) (Acute) General weakness (Acute) Gallstones (Acute) Kidney lesion, [place], left (Acute) Microcytic anemia (Acute) Colitis due to Clostridium difficile (Acute) Alcohol use disorder (Chronic) Dehiscence of operative wound (Acute) Subsequent encounter Skin ulcer of scrotum (Acute) De Quervain's tenosynovitis, left (Acute) 40 mg Depo-Medrol injection: 04/04/2022 Metabolic acidosis (Acute) Essential hypertension (Acute) CKD (chronic kidney disease) stage 4, GFR 15-29 ml/min (Chronic) Lamellar macular hole of both eyes (Acute 10/25/21) Type 1 diabetes, controlled, with neuropathy (Chronic ~05/2017) Adult onset, diagnosed 05/2017 [facility] Endo Dr. Misael--recommend GLP1 Personal goal A1C <7% Secondary hyperparathyroidism (Acute ~05/2021) 05/29/21 [facility] Nephrology Elevated PSA (Acute) Family history of prostate cancer (Chronic) F Hyperlipidemia (Chronic) Hypertension (Chronic) RX Lisinopril (stopped due to creatinine) Medical History Alcohol intoxication (~12/02/21) Bilateral carpal tunnel syndrome Carpal tunnel syndrome on both sides +Tinel & Phalens 05/08/2020 Chronic gingivitis, plaque induced Dentist History of alcohol use disorder since 1989 with intermittent sobriety History of elevated PSA Per [facility] Records--01/14/2019 6.41, 04/28/2018 6.32; +Fam hx prostate cancer in F History of opioid abuse s/p surgeries; visiting brother 08/2021 ([facility] admission) History of renal cell cancer s/p nephrectomy Hyperkalemia (~05/2021) 05/29/21 [facility] Nephrology Lesion of bone of left forearm proximal radius lesion Osteoarthritis of elbows, bilateral Polyneuropathy associated with underlying disease DM Solitary left kidney [facility] Nephro (initial 07/2020); s/p nephrectomy on R 2004 renal cell cancer; partial nephrectomy on L 2007 Tubular adenoma of colon 08/2018 [facility]; recall 5y Type 1 diabetes mellitus without complications Surgical History H/O arthroscopy of knee Remotely--both knees at some point; he cannot recall what, but thinks meniscal H/O partial nephrectomy (~04/2007) left H/O skin graft [facility] 07/12/22 Scrotal Abscess 07/15/22 Skin Graft with Bolster removal History of nephrectomy, right (~03/2004) Renal cell cancer Family History Mother , 54yo breast cancer Alcohol abuse Breast cancer Depression Substance abuse Father , ~70yo prostate cancer Alcohol abuse Prostate cancer Substance abuse Sister , throat caner (nicotine use) Alcohol abuse Cancer Cervical Substance abuse Social History Smoking/Tobacco Use Status: Never Smoking risk assessment performed?: Yes Alcohol Intake: current Alcohol Intake frequency: a few times a month Previous attempts at quittin Counseling given: Yes ([facility]) Drug use: Never Substance use type: opiates Details: no IV drug use Adopted: No Caregiver/Support person: No Foster care: No Household members: other Details: So[facility] Living Facility Housing: apartment Number of Children: 4 number of grandchildren: 4 Communication Needs: None Education Level: college Do you need help understanding health information?: Rarely 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) Pets and animals: Yes Pets and animals: cat(s) Sexually active: No Do you think of yourself as: straight/heterosexual Current gender identity: male What is your relationship status?: How often do you talk on the phone with friends or family?: three or more times per week How often do you get together with friends or relatives?: three or more times per week How often do you attend restorationism or jewish services?: 4 or more times per year Do you belong to any clubs or organized social groups?: no Panel score (0-1 are the most socially isolated patients): 2 What type of physical activity do you participate in: walking, bicycling and other Details: EXERCISE ON STATIONARY BIKE Duration: < 15 minutes/day Frequency: 3-4 times per week Erin/Sabianist: Buddhist Agree to transfusion: No Seatbelt use: always Helmet use: Yes Drive intox or ride w/intox class a truck driver: No Water heater temp set <120 deg: Yes Working smoke detector in home: Yes Fire extinguisher in home: Yes Do you feel safe at home: Yes Do you feel safe in your relationship?: Yes Time Spent with Patient Time Spent with Patient: 45-69 minutes Time was spent: preparing to see the patient(eg.review tests), obtaining and/or reviewing separately otained hiistory, ordering medications,tests, procedures, referring, communicating with other health field care coordinator, counseling the patient and care coordination
--- NOTE | 2022-10-14 11:09 | PTTR_ITS ---
Date of service: 10/14/22 Time of Service: 10:20 PT Notes Visit Reasons: ETOH Withdrawl Inpatient Physical Therapy Treatment Note [facility] Date: 10/14/22 PRECAUTIONS: Fall, standard, activity as tolerated. SUBJECTIVE: Patient short of breath, just returned from ambulation with COMPUTER INFORMATION SCIENCE PROFESSOR. Would like to walk again later, but not right now. OBJECTIVE: Sitting in recliner with feet down, agreeable to therapy. ? PAIN: Yes, bilateral patellar tendons. Worse with walking, stairs. Improves or dissipates completely with rest. VITALS: monitored by nursing staff. ? Manual Therapy (90614r4): To restore muscle function, reduce pain, guarding, and compensatory strategies during ambulation. Techniques included vibration over VMO, static stretching into knee flexion with over pressure, active resisted stretching into knee flexion. ? Therapeutic Exercises (32650o7): Direct one-on-one instruction in therapeutic exercises to develop strength, endurance, range of motion and flexibility. ? Exercises ? Access Code: [email or web address] URL: [email or web address] Date: 10/14/2022 Prepared by: Rosette Mclean Exercises - Standing Hip Extension - 1 x daily - 7 x weekly - 3 sets - 10 reps - Quadruped Bent Leg Hip Extension - 1 x daily - 7 x weekly - 3 sets - 10 reps - Supine Bridge - 1 x daily - 7 x weekly - 3 sets - 10 reps - Standing Hip Abduction - 1 x daily - 7 x weekly - 3 sets - 10 reps - Quadruped Hip Abduction and External Rotation - 1 x daily - 7 x weekly - 3 sets - 10 reps - Sidelying Hip Abduction - 1 x daily - 7 x weekly - 3 sets - 10 reps - Standing Hip Adduction AROM - 1 x daily - 7 x weekly - 3 sets - 10 reps - Seated Hip Adduction Isometrics with Ball - 1 x daily - 7 x weekly - 3 sets - 10 reps - Sidelying Hip Adduction - 1 x daily - 7 x weekly - 3 sets - 10 reps - Standing Hip Flexion AROM - 1 x daily - 7 x weekly - 3 sets - 10 reps - Seated Small Alternating Straight Leg Lifts with Heel Touch - 1 x daily - 7 x weekly - 3 sets - 10 reps - Hooklying Straight Leg Raise - 1 x daily - 7 x weekly - 3 sets - 10 reps ? Provided skilled instruction in proper exercise performance Provided skilled verbal and manual cues to facilitate proper muscle recruitment and/or form including but not limited to vibration over VMO, repositioning feet and hands. Educated patient that this HEP includes 4 exercises, and each one has 3 vari ations, and he is to pick 1 variation per exercise per day. Patient demonstrates understanding and ability to perform all exercises. ASSESSMENT:? Patient expresses a preference to stay in the hospital for one more day, does not feel he is strong enough to go home. States he does not have a ride today but would tomorrow. Care Management aware. PLAN: Continue global strengthening per plan of care until patient is medically ready for discharge. Patient would benefit from continued skilled physical therapy intervention at home. TREATMENT CODE/TIME: 31676 Manual Therapy 8 minutes beginning at 10:20, [id number] Ther Ex 8 minutes beginning at 11:51
[2022-10-14] MEDS: traMADol 50 MG TAB 100 MG PO (11:16)
[2022-10-14 14:40] VITALS: BP 130/83; PULSE 94; RESP 16; TEMP 36.5; O2SAT 95
[2022-10-14 15:33] VITALS: BP 131/88; PULSE 90; RESP 18; TEMP 36.5; O2SAT 96
--- NOTE | 2022-10-14 15:54 | CMDISCH_ITS ---
Date of service: 10/14/22 Time of Service: 15:54 LACE Index Scoring Tool Questions: Length of Stay (in days): 3 Was the patient admitted via the E.D.?: Yes Comorbidities: Diabetes w/o Complication and Liver or Renal Disease E.D. Visits: 5 Answers: Total Score: 15 Risk of Readmission: High Risk Care Management Discharge Plan Reason for Hospitalization: ETOH withdrawal Discharge Plan: Mina returned home today, and is being closely followed by the manager recovery. [facility] met with him and cleared him for discharge, and recreated a safety plan with intentions for outpatient support. CM coordinated transportation home via [facility] private vehicle, stopping at the [place] station for his house keys. He will follow up with his PCP and his discharge plan of care. He is happy to be going home. Patient/Family Education Needs: Review discharge instructions and limitations, discussion of self care needs including ask me three. Services Needed at Discharge: Transportation ([facility] private vehicle)
--- NOTE | 2022-10-15 07:11 | OT.INDS ---
Occupational Therapy Notes Occupational Therapy Inpatient Discharge Summary Date: 10/15/22 Dates of Service: 10/14/22 Referring Doctor: Dr. Torrez OT Orders: Non Urgent Precautions: Fall, Standard, full *This document serves as a summary of care, no skilled OT services provided for this documentation* PATIENT PROFILE/ADMITTING DIAGNOSIS: Pt is a 62 year old male who presented to the ED and was admitted to the ICU originally with alcohol intoxication, suicidal ideation, homicidal ideation, B12 Deficiency, sinus tachycardia, fever, anemia, hypomagnesemia, hyponatremia, generalized weakness. Past Medical History: All Active Problems?(Updated 10/12/22 @ 14:47 by Rima Rios NP) Discharge planning issues (Acute) DVT prophylaxis (Acute) Alcohol intoxication (Acute) Suicidal ideation (Acute) Homicidal ideation (Acute) B12 deficiency (Acute) Sinus tachycardia (Acute) Thrombosis superficial vein, arm, acute (Acute) Anemia (Chronic) Leukocytosis (leucocytosis) (Acute) General weakness (Acute) Gallstones (Acute) Kidney lesion, [place], left (Acute) Microcytic anemia (Acute) Colitis due to Clostridium difficile (Acute) Alcohol use disorder (Chronic) Dehiscence of operative wound (Acute) Subsequent encounterSkin ulcer of scrotum (Acute) De Quervain's tenosynovitis, left (Acute) 40 mg Depo-Medrol injection: 04/04/2022Metabolic acidosis (Acute) Essential hypertension (Acute) CKD (chronic kidney disease) stage 4, GFR 15-29 ml/min (Chronic) Lamellar macular hole of both eyes (Acute 10/25/21) Type 1 diabetes, controlled, with neuropathy (Chronic ~05/2017) Adult onset, diagnosed 05/2017 [facility] Endo Dr. Douglas--recommend GLP1 Personal goal A1C <7%Secondary hyperparathyroidism (Acute ~05/2021) 05/29/21 [facility]phrology Elevated PSA (Acute) Family history of prostate cancer (Chronic) FHyperlipidemia (Chronic) Hypertension (Chronic) RX Lisinopril (stopped due to creatinine) Medical History? Alcohol intoxication (~12/02/21) Bilateral carpal tunnel syndrome Carpal tunnel syndrome on both sides +Tinel & Phalens 05/08/2020hronic gingivitis, plaque induced DentistHistory of alcohol use disorder since 1989 with intermittent sobrietyHistory of elevated PSA Per [place] Records--01/14/2019 6.41, 04/28/2018 6.32; +Fam hx prostate cancer in FHistory of opioid abuse s/p surgeries; visiting brother 08/2021 ([facility] admission)History of renal cell cancer s/p nephrectomyHyperkalemia (~05/2021) 05/29/21 [facility] NephrologyLesion of bone of left forearm proximal radius lesionOsteoarthritis of elbows, bilateral Polyneuropathy associated with underlying disease DMSolitary left kidney [facility] Nephro (initial 07/2020); s/p nephrectomy on R 2004 renal cell cancer; partial nephrectomy on L 2007Tubular adenoma of colon 08/2018 [facility]oscopy [facility]; recall 5yType 1 diabetes mellitus without complications Surgical History? H/O arthroscopy of knee Remotely--both knees at some point; he cannot recall what, but thinks meniscalH/O partial nephrectomy (~04/2007) leftH/O skin graft [facility] 07/12/22 Scrotal Abscess 07/15/22 Skin Graft with Bolster removal History of nephrectomy, right (~03/2004) Renal cell cancer Social History/Home Situation: Pt states that he lives alone and notes that he is able to perform his ADLs at home but notes that his knees are his biggest limiting factor at this time. Equipment owned/DME: [facility] SUBJECTIVE:?NT OBJECTIVE:? ROM: RUE AROM WFL L UE AROM WFL STRENGTH: RUE 3+/5 throughout LUE 3+/5 throughout FUNCTIONAL MOBILITY/ADLS:? *Based on observations from initial evaluation. Transfers with [facility]WW BATHING seated in chair with max (A) set up and clean up Bathing UE (I) UE Bathing LE Mod (A) LE DRESSING Dressing UE Min (A) don and doffing hospital gown Dressing LE (I) don and doffing (B) socks BALANCE: Static sitting Normal Dynamic Sitting Normal ASSESSMENT:?? Patient is a? 62-year-old male referred to occupational therapy services with diagnosis of alcohol intoxication, suicidal ideation, homicidal ideation, B12 Deficiency, sinus tachycardia, fever, anemia, hypomagnesemia, hyponatremia, generalized weakness. Patient was seen for initial evaluation and later discharged that day. GOALS- Not met, seen for OT cconsult only 1.? Grooming- standing at sink (I) with FWW no LOB 2.? Dressing seated (I) 3.? Bathing standing at sink (I) with UE/LE 4.? Toileting on toilet (I) 5.? Eating (I) PLAN OF CARE/TREATMENT PLAN: Discharged home with HH services. DISCHARGE RECOMMENDATIONS Home with HH vs. SNF TREATMENT TIME/MINUTES/CODES N/A Tanya Baron, OTR/L [facility] [place], [place]
--- NOTE | 2022-10-15 11:27 | PT.INDS ---
PT Notes Visit Reasons: ETOH Withdrawl Inpatient Physical Therapy Discharge Summary Date: 10/15/22 Dates of Service: 10/13/22 through 10/14/22 Mina required acute care PT services for improved mobility in order to safely return home. He was medically discharged by physician and returned home. Only had evaluation and one follow up session where HEP was instructed and issued. Discharge from acute care PT services at this time. Goals: x1 week - No formal re-evaluation performed 1. Supine-Sit independent 2. Sit-Supine? independent 3. Sit-Stand? independent 4. Stand-Sit? independent 5. Bed-Chair? independent 6. Chair-Bed? independent 7. Gait? independent 8. Stairs? independent 9. Independent with home exercise program? independent 10. Balance Good with all functional movements, no fall risk Discharge/Plan: Home Please refer to patient physical therapy initial evaluation, treatment and/or progress notes for a summary of physical therapy care provided through dates of service listed above. This is a clinical summary of care provided for the duration of dates listed above. No charge was made in the completion of this documentation.
== END 2022-10-14 15:41 | disposition home or self-care (01) | DRG 897 ==
LOC: ER 10-11 10:37 → MS 10-11 11:32 → ICU 10-12 00:54 → MS 10-13 16:39
PROVIDERS: Nurse Practitioner Acute Care; Admitting Provider Family Medicine; Emergency Provider Emergency Medicine; PCP Nurse Practitioner Adult Health; Visit Provider Family Medicine
DX: F10.129 Alcohol abuse with intoxication, unspecified (principal); R45.851 Suicidal ideations; N18.4 Chronic kidney disease, stage 4 (severe); N25.81 Secondary hyperparathyroidism of renal origin; R45.850 Homicidal ideations; E10.40 Type 1 diabetes mellitus with diabetic neuropathy, unspecified; E10.22 Type 1 diabetes mellitus with diabetic chronic kidney disease; R26.2 Difficulty in walking, not elsewhere classified; F10.139 Alcohol abuse with withdrawal, unspecified; E53.8 Deficiency of other specified B group vitamins; I12.9 Hypertensive chronic kidney disease with stage 1 through stage 4 chronic kidney disease, or unspecified chronic kidney disease; Z86.718 Personal history of other venous thrombosis and embolism; D64.9 Anemia, unspecified; E78.5 Hyperlipidemia, unspecified; M79.605 Pain in left leg; M79.604 Pain in right leg; Y90.6 Blood alcohol level of 120-199 mg/100 ml
CPT/HCPCS: 36416; 80048; 80053; 80307; 82962; 96365; 96366; 97110; 97140; 97162; 97165; 99285; J1650; 80320; 80329; 81003; 81015; 83735; 85025; 99223; 99232; 99239; J1885; J2060; J2405; J2560; J3475

== ENCOUNTER 2022-10-19 17:03 | Emergency (ER) | payer OTHER, MEDICAID, SELFPAY ==
--- NOTE | 2022-10-19 17:03 | W.ED.GENAD ---
Discharge Plan Disposition Patient Disposition: Home Condition: Improving Discharge Details Clinical Impression: Alcohol intoxication, Alcohol use disorder Primary Care Provider: Mel Llamas ED Provider: John Mccord Home Meds and New Rx's Prescriptions: Continued (DME) lancets Misc See Rx Instructions .MEDSUPPLY Rx Instructions: As directed to check blood glucose four times daily. On insulin. Dispense covered brand. duloxetine 60 mg capsule,delayed release(DR/EC) See Rx Instructions .ROUTE .COMPLEX Qty: 90 3RF Dose Instruction: TAKE 1 CAPSULE BY MOUTH EVERY MORNING Rx Instructions: TAKE 1 CAPSULE BY MOUTH EVERY MORNING Trulicity 0.75 mg/0.5 mL pen injector See Rx Instructions .ROUTE .COMPLEX Qty: 6 0RF Dose Instruction: INJECT 0.5ML UNDER THE SKIN ONCE WEEKLY Rx Instructions: INJECT 0.5ML UNDER THE SKIN ONCE WEEKLY naproxen 375 mg tablet,delayed release (DR/EC) 375 mg PO .with dinner Qty: 14 0RF Rx Instructions: Post-op pain (DME) OneTouch Verio test strips Strip See Rx Instructions .ROUTE .COMPLEX Qty: 400 0RF Dose Instruction: USE TO TEST BLOOD GLUCOSE FOUR TIMES DAILY Rx Instructions: USE TO TEST BLOOD GLUCOSE FOUR TIMES DAILY chlorthalidone 15 mg tablet 7.5 mg PO DAILY Patient Comments: 05/29/21 visit lisinopril 2.5 mg tablet 2.5 mg PO DAILY Patient Comments: 05/29/21 office visit baking soda PO Rx Instructions: 1/2 teaspoon per day due to metabolic acidosis atorvastatin 20 mg tablet See Rx Instructions .ROUTE .COMPLEX Qty: 90 3RF Dose Instruction: TAKE 1 TABLET BY MOUTH EVERY NIGHT AT BEDTIME FOR CHOLESTEROL OR DIABETES Rx Instructions: TAKE 1 TABLET BY MOUTH EVERY NIGHT AT BEDTIME FOR CHOLESTEROL OR DIABETES (DME) pen needle, diabetic [BD Ultra-Fine Doreen Pen Needle] 32 gauge x /32 needle See Rx Instructions .ROUTE .MEDSUPPLY Qty: 360 3RF Rx Instructions: BD Ultrafine 32G X 6mm, 4x/day for goal A1C<7 for E10.9 gabapentin 300 mg capsule See Rx Instructions .ROUTE .COMPLEX Qty: 90 0RF Dose Instruction: TAKE 1 CAPSULE BY MOUTH AT BEDTIME NEEDED FOR NERVE PAIN INLEGS Rx Instructions: TAKE 1 CAPSULE BY MOUTH AT BEDTIME NEEDED FOR NERVE PAIN INLEGS (DME) Dexcom G7 Grinder Brake Lining Misc See Rx Instructions .ROUTE Qty: 1 0RF Rx Instructions: As directed (DME) Dexcom G7 Sensor Device See Rx Instructions .ROUTE Qty: 1 0RF Rx Instructions: As directed tramadol 50 mg Tablet 100 mg PO Q6H PRN PRNQty: 30 0RF Rx Instructions: May take one tab if pain controlled with that lower dose propranolol 20 mg Tablet 20 mg PO BID Qty: 60 0RF multivitamin [Multiple Vitamins] Tablet 1 tab PO QAM Qty: 0 0RF thiamine mononitrate (vit B1) [Vitamin B-1 (mononitrate)] 100 mg Tablet 100 mg PO QAM Qty: 0 0RF cyanocobalamin (vitamin B-12) [Vitamin B-12] 500 mcg Tablet 1,000 mcg PO DAILY Qty: 30 0RF gabapentin 100 mg Capsule 100 mg PO BID@0800,1400 Qty: 0 0RF diclofenac sodium 1 % Gel 4 g topical QID Qty: 0 0RF Rx Instructions: apply to both knees QID magnesium oxide 400 mg (241.3 mg magnesium) Tablet 400 mg PO BID Qty: 0 0RF Metamucil Sugar-Free (aspart) 3.4 gram/5.8 gram Powder 1 ea PO TID Qty: 0 0RF L. Acidophilus,Casei,Rhamnosus [Bio-K Plus] 1 cap PO DAILY Qty: 0 0RF metoprolol succinate 25 mg tablet extended release 24 hr 50 mg PO HS Qty: 90 3RF insulin glargine [Lantus Solostar U-100 Insulin] 100 unit/mL (3 mL) insulin pen 40 unit subcut HS MDD 46 units daily Qty: 45 3RF Rx Instructions: DMT1 Discharge Instructions Instructions: Alcohol Intoxication (ED) Additional Instructions: You were seen in the ED for alcohol intoxication. You did receive medication to help you sleep and now that you are sober you are requesting discharge. Please drink in moderation if at all. You were previously given community resources at your discharge from this hospital last week. Return to ED with any concerns. Medical Decision Making Patient presenting to ED with alcohol intoxication. He is asking to leave but he is clearly intoxicated and at risk for falling given his ataxic presentation just sitting on the stretcher. He was given options of sleeping it off on his own or receiving medication to help him sleep and keep him calm. He elected he later. He was given droperidol IM. An EKG was obtained and shows sinus tachycardia rate 115 with normal QT interval and no acute ST changes. He is placed on the monitor and will be observed overnight for sobriety. It is noted that he has history of severe alcohol withdrawal so we will need to keep an eye out for this. 18:30 - Patient managed to scoot to end of stretcher and lowered self to floor, sitting in front of stretcher requesting to go home. Patient informed that given his inability to ambulate still who could not go home. He was helped back into bed by myself and two nurses. He required significant assistance. He is given a second dose of droperidol IM and will be continued to be monitored for sobriety. 20:50 - Patient is awake and alert + oriented x 3 at this time. His speech is clear. He is ambulatory with a walker which is what he uses at home. He knows he was brought here due to alcohol intoxication. He will be discharged home. Medical Records Medical records reviewed: Yes I reviewed the patient's medical records. Medical records narrative: from admission for alcohol withdrawal in the last week ECG Data Attestation: I personally reviewed and interpreted this ECG (s) as follows: Prior ECG tracings: available for review Interpretation: see EKG HPI General Mode of arrival: EMS. Date/Time Provider Initiated Documentation: 10/19/22 17:03. Limitations to Documentation: altered mental status. Information obtained by: EMS and old records reviewed. HPI Narrative: Patient brought into ED by EMS with alcohol intoxication. Patient found at his apartment sitting on the floor with bottles of alcohol around him. Patient had just been discharged from this hospital last week after an admission for alcohol withdrawal. Patient is awake on arrival. His speech is slurred. He is ataxic just sitting on the stretcher. He states that he wishes to go back home. Unable to obtain any history. Unable to obtain any complaints. Related Data Home Medications Medication Instructions Recorded Confirmed zak 08/03/20 09/10/22 baking soda PO 05/29/21 08/21/22 chlorthalidone 15 mg tablet 7.5 mg PO DAILY 05/29/21 10/10/22 lisinopril 2.5 mg tablet 2.5 mg PO DAILY 05/29/21 10/10/22 atorvastatin 20 mg tablet See Rx Instructions .Route 10/19/21 10/10/22 .COMPLEX #90 tabs pen needle, diabetic 32 gauge x #360 ea 02/01/22 09/10/22/32 (BD Ultra-Fine Doreen Pen Needle) duloxetine 60 mg capsule,delayed See Rx Instructions .Route 02/20/22 10/10/22 release .COMPLEX #90 caps gabapentin 300 mg capsule See Rx Instructions .Route 05/30/22 10/10/22 .COMPLEX #90 caps dulaglutide 0.75 mg/0.5 mL See Rx Instructions .Route 06/06/22 10/10/22 subcutaneous pen injector .COMPLEX #6 mL (Trulicity) blood sugar diagnostic ([employer]uch #400 strips 08/21/22 09/10/22 Verio test strips) naproxen 375 mg tablet,delayed 375 mg PO .with dinner #14 tabs 08/21/22 10/10/22 release blood-glucose meter,continuous #1 ea 08/26/22 09/10/22 (Dexcom G7 Grinder Brake Lining) blood-glucose sensor (Dexcom G7 #1 ea 08/26/22 09/10/22 Sensor device) multivitamin (Multiple Vitamins 1 tab PO QAM #0 tabs 09/10/22 10/10/22 tablet) thiamine mononitrate (vit B1) 100 100 mg PO QAM #0 tabs 09/10/22 10/10/22 mg tablet (Vitamin B-1 (mononitrate)) L. Acidophilus,Casei,Rhamnosus 1 cap PO DAILY ##0 09/18/22 10/10/22 [Bio-K PLUS] cyanocobalamin (vitamin B-12) 500 1,000 mcg PO DAILY #30 tabs 09/18/22 10/10/22 mcg tablet (Vitamin B-12) diclofenac sodium 1 % topical gel 4 g topical QID #0 grams 09/18/22 10/10/22 gabapentin 100 mg capsule 100 mg PO BID@0800,1400 #0 caps 09/18/22 10/10/22 insulin glargine 100 unit/mL (3 40 unit (0.4 mL) subcut HS #45 mL 09/18/22 10/10/22 mL) subcutaneous pen (Lantus Solostar U-100 Insulin) magnesium oxide 400 mg (241.3 mg 400 mg PO BID #0 tabs 09/18/22 10/10/22 magnesium) tablet metoprolol succinate 25 mg 50 mg PO HS #90 tabs 09/18/22 10/10/22 tablet,extended release 24 hr psyllium husk (aspartame) 3.4 1 ea PO TID #0 grams 09/18/22 10/10/22 gram/5.8 gram oral powder (Metamucil Sugar-Free (aspartame)) propranolol 20 mg tablet 20 mg PO BID #60 tabs 10/14/22 tramadol 50 mg tablet 100 mg PO Q6H PRN PRN #30 tabs 10/14/22 Previous Rx's Medication Instructions Recorded atorvastatin 20 mg tablet See Rx Instructions .Route 10/19/21 .COMPLEX #90 tabs pen needle, diabetic 32 gauge x #360 ea 02/01/22 (BD Ultra-Fine Doreen Pen Needle) duloxetine 60 mg capsule,delayed See Rx Instructions .Route 02/20/22 release .COMPLEX #90 caps gabapentin 300 mg capsule See Rx Instructions .Route 05/30/22 .COMPLEX #90 caps dulaglutide 0.75 mg/0.5 mL See Rx Instructions .Route 06/06/22 subcutaneous pen injector .COMPLEX #6 mL (Trulicity) blood sugar diagnostic (OneTouch #400 strips 08/21/22 Verio test strips) naproxen 375 mg tablet,delayed 375 mg PO .with dinner #14 tabs 08/21/22 release blood-glucose meter,continuous #1 ea 08/26/22 (Dexcom G7 Grinder Brake Lining) blood-glucose sensor (Dexcom G7 #1 ea 08/26/22 Sensor device) multivitamin (Multiple Vitamins 1 tab PO QAM #0 tabs 09/10/22 tablet) thiamine mononitrate (vit B1) 100 100 mg PO QAM #0 tabs 09/10/22 mg tablet (Vitamin B-1 (mononitrate)) L. Acidophilus,Casei,Rhamnosus 1 cap PO DAILY ##0 09/18/22 [Bio-K PLUS] cyanocobalamin (vitamin B-12) 500 1,000 mcg PO DAILY #30 tabs 09/18/22 mcg tablet (Vitamin B-12) diclofenac sodium 1 % topical gel 4 g topical QID #0 grams 09/18/22 gabapentin 100 mg capsule 100 mg PO BID@0800,1400 #0 caps 09/18/22 insulin glargine 100 unit/mL (3 40 unit (0.4 mL) subcut HS #45 mL 09/18/22 mL) subcutaneous pen (Lantus Solostar U-100 Insulin) magnesium oxide 400 mg (241.3 mg 400 mg PO BID #0 tabs 09/18/22 magnesium) tablet metoprolol succinate 25 mg 50 mg PO HS #90 tabs 09/18/22 tablet,extended release 24 hr psyllium husk (aspartame) 3.4 1 ea PO TID #0 grams 09/18/22 gram/5.8 gram oral powder (Metamucil Sugar-Free (aspartame)) propranolol 20 mg tablet 20 mg PO BID #60 tabs 10/14/22 tramadol 50 mg tablet 100 mg PO Q6H PRN PRN #30 tabs 10/14/22 Allergies Allergy/AdvReac Type Severity Reaction Status Date / Time lactose intolerant AdvReac Mild Diarrhea Uncoded 10/10/22 19:53 General GALILEO: 2 Review of Systems Unobtainable due to mental status PFSH All Active Problems (Updated 10/19/22 @ 20:54 by John Mccord MD) Alcohol intoxication (Acute) Alcohol use disorder (Acute) Alcohol intoxication (Acute ~12/02/21) Ambulatory dysfunction (Acute) DVT prophylaxis (Acute) B12 deficiency (Acute) Sinus tachycardia (Acute) Thrombosis superficial vein, arm, acute (Acute) Anemia (Chronic) Leukocytosis (leucocytosis) (Acute) General weakness (Acute) Gallstones (Acute) Kidney lesion, paimiut, left (Acute) Microcytic anemia (Acute) Colitis due to Clostridium difficile (Acute) Alcohol use disorder (Chronic) Dehiscence of operative wound (Acute) Subsequent encounter Skin ulcer of scrotum (Acute) De Quervain's tenosynovitis, left (Acute) 40 mg Depo-Medrol injection: 04/04/2022 Metabolic acidosis (Acute) Lamellar macular hole of both eyes (Acute 10/25/21) Type 1 diabetes, controlled, with neuropathy (Chronic ~05/2017) Adult onset, diagnosed 05/2017 [facility] Endo Dr. 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 CKD (chronic kidney disease) stage 4, GFR 15-29 ml/min Essential hypertension History of alcohol use disorder since 1989 with intermittent sobriety History of elevated PSA Per [facility] Records--01/14/2019 6.41, 04/28/2018 6.32; +Fam hx prostate cancer in F History of opioid abuse s/p surgeries; visiting brother 08/2021 ([facility] admission) History of renal cell cancer s/p nephrectomy Hyperlipidemia Lesion of bone of left forearm proximal radius lesion Osteoarthritis of elbows, bilateral Polyneuropathy associated with underlying disease DM Secondary [place]athy[place] (~05[place]2021[place] [facility] [place] Solitary [place] [facility] [place] s/p nephrectomy on R 2004 renal cell cancer; partial nephrectomy on L 2007 Tubular adenoma of colon 08/2018 colonoscopy [facility]; recall 5y Type 1 diabetes mellitus without complications Surgical History H/O arthroscopy of knee Remotely--both knees at some point; he cannot recall what, but thinks meniscal H/O partial nephrectomy (~04/2007) left H/[place] [facility] [place] Scrotal Abscess 07/15/22 Skin Graft with Bolster removal History of nephrectomy, right (~03/2004) Renal cell cancer Family History Mother , 54yo breast cancer Alcohol abuse Breast cancer Depression Substance abuse Father , ~70yo prostate cancer Alcohol abuse Prostate cancer Substance abuse Sister , throat caner (nicotine use) Alcohol abuse Cancer Cervical Substance abuse Social History Smoking/Tobacco Use Status: Never Smoking risk assessment performed?: Yes Alcohol Intake: current Alcohol Intake frequency: a few times a month Previous attempts at quittin Counseling given: Yes ([facility] [place]) Drug use: Never Substance use type: opiates Details: no IV drug use Adopted: No Caregiver/Support person: No Foster care: No Household members: other Details: [facility] Living Facility Housing: apartment Number of Children: 4 number of grandchildren: 4 Communication Needs: None Education Level: college Do you need help understanding health information?: Rarely 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) Pets and animals: Yes Pets and animals: cat(s) Sexually active: No Do you think of yourself as: straight/heterosexual Current gender identity: male What is your relationship status?: How often do you talk on the phone with friends or family?: three or more times per week How often do you get together with friends or relatives?: three or more times per week How often do you attend religion or taoist services?: 4 or more times per year Do you belong to any clubs or organized social groups?: no Panel score (0-1 are the most socially isolated patients): 2 What type of physical activity do you participate in: walking, bicycling and other Details: EXERCISE ON STATIONARY BIKE Duration: < 15 minutes/day Frequency: 3-4 times per week Erin/Buddhist: Restoration Agree to transfusion: No Seatbelt use: always Helmet use: Yes Drive intox or ride w/intox pizza driver: No Water heater temp set <120 deg: Yes Working smoke detector in home: Yes Fire extinguisher in home: Yes Do you feel safe at home: Yes Do you feel safe in your relationship?: Yes Exam Narrative Exam Narrative: Const: WDWN male in NAD. HEENT: NC/AT. Normal facial exam. Neck: Supple. Trachea midline. Lungs: Normal respiratory effort. Cor: RRR. Good radial pulses. Neuro: A+O x 2. Slurred speech. Ataxic sitting on stretcher, gait not tested. Cranial nerves II - XII grossly intact. VICTORIA x4. Ext: No C/C/E.
[2022-10-19 17:11] VITALS: BP 121/96; PULSE 120; RESP 18; TEMP 37; O2SAT 98
[2022-10-19] MEDS: Droperidol 5 MG/2 ML VIAL 2.5 MG IM ×2 (17:19→18:32)
--- NOTE | 2022-10-19 17:30 | RT.EKG_ITS ---
APPROVED REPORT Exam: Resting ECG Reason for Exam: check QT interval Patient Location: E HR:115 bpm ECG Measurements Heart Rate 115 AXIS RI 178 P 69 QRSd 96 QRS 61 QT 336 T 14 QTc 466 Conclusion Sinus tachycardia...rate> 99 Abnrm R prog, consider ASMI or lead placement...Q >30mS, diminished R, V1-V2 Sinus Tach @ 115 Normal [place] Normal QTc No Acute Changes No Change from Previous in August
== END 2022-10-19 21:11 | disposition home or self-care (01) ==
PROVIDERS: Emergency Provider Emergency Medicine; PCP Nurse Practitioner Adult Health
DX: F10.120 Alcohol abuse with intoxication, uncomplicated (principal); R00.0 Tachycardia, unspecified; E10.40 Type 1 diabetes mellitus with diabetic neuropathy, unspecified; I12.9 Hypertensive chronic kidney disease with stage 1 through stage 4 chronic kidney disease, or unspecified chronic kidney disease; E10.22 Type 1 diabetes mellitus with diabetic chronic kidney disease; N18.4 Chronic kidney disease, stage 4 (severe); Z79.899 Other long term (current) drug therapy
CPT/HCPCS: 93005; 99283; 93010; 99282; J1790

== ENCOUNTER 2022-10-22 14:25 | Emergency (ER) | payer OTHER, MEDICAID, SELFPAY ==
[2022-10-22] VITALS (32 sets, daily range): BP systolic 97–141; BP diastolic 52–118; PULSE 117–146; RESP 20; O2SAT 71–100
--- NOTE | 2022-10-22 14:35 | ED.GENADUL_ITS ---
Discharge Plan Disposition Patient Disposition: Home Condition: Improving Discharge Details Clinical Impression: Alcohol abuse Primary Care Provider: Mel Llamas ED Provider: Chauncey Gipson Home Meds and New Rx's Prescriptions: New chlordiazepoxide HCl 25 mg capsule 25 mg PO ONCE Qty: 15 0RF Rx Instructions: Day 1: 50mg (two tabs) q6hr; Day 2: 25mg q6hr; Day 3: 25mg BID; Day 4: 25mg qHS No Action (DME) lancets Misc See Rx Instructions .MEDSUPPLY Rx Instructions: As directed to check blood glucose four times daily. On insulin. Dispense covered brand. duloxetine 60 mg capsule,delayed release(DR/EC) See Rx Instructions .ROUTE .COMPLEX Qty: 90 3RF Dose Instruction: TAKE 1 CAPSULE BY MOUTH EVERY MORNING Rx Instructions: TAKE 1 CAPSULE BY MOUTH EVERY MORNING Trulicity 0.75 mg/0.5 mL pen injector See Rx Instructions .ROUTE .COMPLEX Qty: 6 0RF Dose Instruction: INJECT 0.5ML UNDER THE SKIN ONCE WEEKLY Rx Instructions: INJECT 0.5ML UNDER THE SKIN ONCE WEEKLY naproxen 375 mg tablet,delayed release (DR/EC) 375 mg PO .with dinner Qty: 14 0RF Rx Instructions: Post-op pain (DME) OneTouch Verio test strips Strip See Rx Instructions .ROUTE .COMPLEX Qty: 400 0RF Dose Instruction: USE TO TEST BLOOD GLUCOSE FOUR TIMES DAILY Rx Instructions: USE TO TEST BLOOD GLUCOSE FOUR TIMES DAILY chlorthalidone 15 mg tablet 7.5 mg PO DAILY Patient Comments: 05/29/21 visit lisinopril 2.5 mg tablet 2.5 mg PO DAILY Patient Comments: 05/29/21 office visit baking soda PO Rx Instructions: 1/2 teaspoon per day due to metabolic acidosis atorvastatin 20 mg tablet See Rx Instructions .ROUTE .COMPLEX Qty: 90 3RF Dose Instruction: TAKE 1 TABLET BY MOUTH EVERY NIGHT AT BEDTIME FOR CHOLESTEROL OR DIABETES Rx Instructions: TAKE 1 TABLET BY MOUTH EVERY NIGHT AT BEDTIME FOR CHOLESTEROL OR DIABETES (DME) pen needle, diabetic [BD Ultra-Fine Doreen Pen Needle] 32 gauge x /32 needle See Rx Instructions .ROUTE .MEDSUPPLY Qty: 360 3RF Rx Instructions: BD Ultrafine 32G X 6mm, 4x/day for goal A1C<7 for E10.9 gabapentin 300 mg capsule See Rx Instructions .ROUTE .COMPLEX Qty: 90 0RF Dose Instruction: TAKE 1 CAPSULE BY MOUTH AT BEDTIME NEEDED FOR NERVE PAIN INLEGS Rx Instructions: TAKE 1 CAPSULE BY MOUTH AT BEDTIME NEEDED FOR NERVE PAIN INLEGS (DME) Dexcom G7 Fleet Sales Manager Misc See Rx Instructions .ROUTE Qty: 1 0RF Rx Instructions: As directed (DME) Dexcom G7 Sensor Device See Rx Instructions .ROUTE Qty: 1 0RF Rx Instructions: As directed tramadol 50 mg Tablet 100 mg PO Q6H PRN PRNQty: 30 0RF Rx Instructions: May take one tab if pain controlled with that lower dose propranolol 20 mg Tablet 20 mg PO BID Qty: 60 0RF multivitamin [Multiple Vitamins] Tablet 1 tab PO QAM Qty: 0 0RF thiamine mononitrate (vit B1) [Vitamin B-1 (mononitrate)] 100 mg Tablet 100 mg PO QAM Qty: 0 0RF cyanocobalamin (vitamin B-12) [Vitamin B-12] 500 mcg Tablet 1,000 mcg PO DAILY Qty: 30 0RF gabapentin 100 mg Capsule 100 mg PO BID@0800,1400 Qty: 0 0RF diclofenac sodium 1 % Gel 4 g topical QID Qty: 0 0RF Rx Instructions: apply to both knees QID magnesium oxide 400 mg (241.3 mg magnesium) Tablet 400 mg PO BID Qty: 0 0RF Metamucil Sugar-Free (aspart) 3.4 gram/5.8 gram Powder 1 ea PO TID Qty: 0 0RF L. Acidophilus,Casei,Rhamnosus [Bio-K Plus] 1 cap PO DAILY Qty: 0 0RF metoprolol succinate 25 mg tablet extended release 24 hr 50 mg PO HS Qty: 90 3RF insulin glargine [Lantus Solostar U-100 Insulin] 100 unit/mL (3 mL) insulin pen 40 unit subcut HS MDD 46 units daily Qty: 45 3RF Rx Instructions: DMT1 Discharge Instructions Instructions: Abuse of Alcohol (ED) Medical Decision Making 62-year-old male history of alcohol use presents with intoxication, brought in by EMS from home, patient believes he is withdrawing despite drinking this morning, no tongue fasciculations, no tremor, patient is hemodynamically stable alert moving all extremities following commands cooperative no acute psychiatric distress. Will observe to sobriety. Will discharge home with outpatient resources for substance abuse. No evidence of trauma infection or acute neurologic process. 15: 06 despite being clearly intoxicated patient's vital signs are consistent with withdrawal given hypertension and tachycardia. Will obtain basic labs, will provide fluid hydration and benzodiazepine therapy. Patient is alert maintaining his airway interactive and following commands. 18: 44 clinically improved alert oriented will ambulate at bedside. 18: 52 patient still needs time to sober, will attempt to reambulate, will likely send patient home with Librium taper. 19: 22 patient resting comfortably ambulatory clinically sober. No signs of withdrawal. HPI General Date/Time Provider Initiated Documentation: 10/22/22 14:31 . HPI Narrative: 62-year-old male history of alcohol abuse presents brought in by EMS for alcohol intoxication, patient believes he is withdrawing, last drink was this morning. Patient appears intoxicated Related Data Home Medications Medication Instructions Recorded Confirmed lancets 08/03/20 09/10/22 baking soda PO 05/29/21 08/21/22 chlorthalidone 15 mg tablet 7.5 mg PO DAILY 05/29/21 10/10/22 lisinopril 2.5 mg tablet 2.5 mg PO DAILY 05/29/21 10/10/22 atorvastatin 20 mg tablet See Rx Instructions .Route 10/19/21 10/10/22 .COMPLEX #90 tabs pen needle, diabetic 32 gauge x #360 ea 02/01/22 09/10/22 5/32 (BD Ultra-Fine Doreen Pen Needle) duloxetine 60 mg capsule,delayed See Rx Instructions .Route 02/20/22 10/10/22 release .COMPLEX #90 caps gabapentin 300 mg capsule See Rx Instructions .Route 05/30/22 10/10/22 .COMPLEX #90 caps dulaglutide 0.75 mg/0.5 mL See Rx Instructions .Route 06/06/22 10/10/22 subcutaneous pen injector .COMPLEX #6 mL (Trulicity) blood sugar diagnostic (OneTouch #400 strips 08/21/22 09/10/22 Verio test strips) naproxen 375 mg tablet,delayed 375 mg PO .with dinner #14 tabs 08/21/22 10/10/22 release blood-glucose meter,continuous #1 ea 08/26/22 09/10/22 (Dexcom G7 Fleet Sales Manager) blood-glucose sensor (Dexcom G7 #1 ea 08/26/22 09/10/22 Sensor device) multivitamin (Multiple Vitamins 1 tab PO QAM #0 tabs 09/10/22 10/10/22 tablet) thiamine mononitrate (vit B1) 100 100 mg PO QAM #0 tabs 09/10/22 10/10/22 mg tablet (Vitamin B-1 (mononitrate)) L. Acidophilus,Casei,Rhamnosus 1 cap PO DAILY ##0 09/18/22 10/10/22 [Bio-K PLUS] cyanocobalamin (vitamin B-12) 500 1,000 mcg PO DAILY #30 tabs 09/18/22 10/10/22 mcg tablet (Vitamin B-12) diclofenac sodium 1 % topical gel 4 g topical QID #0 grams 09/18/22 10/10/22 gabapentin 100 mg capsule 100 mg PO BID@0800,1400 #0 caps 09/18/22 10/10/22 insulin glargine 100 unit/mL (3 40 unit (0.4 mL) subcut HS #45 mL 09/18/22 10/10/22 mL) subcutaneous pen (Lantus Solostar U-100 Insulin) magnesium oxide 400 mg (241.3 mg 400 mg PO BID #0 tabs 09/18/22 10/10/22 magnesium) tablet metoprolol succinate 25 mg 50 mg PO HS #90 tabs 09/18/22 10/10/22 tablet,extended release 24 hr psyllium husk (aspartame) 3.4 1 ea PO TID #0 grams 09/18/22 10/10/22 gram/5.8 gram oral powder (Metamucil Sugar-Free (aspartame)) propranolol 20 mg tablet 20 mg PO BID #60 tabs 10/14/22 tramadol 50 mg tablet 100 mg PO Q6H PRN PRN #30 tabs 10/14/22 chlordiazepoxide HCl 25 mg capsule 25 mg PO ONCE #15 caps 10/22/22 Previous Rx's Medication Instructions Recorded atorvastatin 20 mg tablet See Rx Instructions .Route 10/19/21 .COMPLEX #90 tabs pen needle, diabetic 32 gauge x #360 ea 02/01/22 (BD Ultra-Fine Doreen Pen Needle) duloxetine 60 mg capsule,delayed See Rx Instructions .Route 02/20/22 release .COMPLEX #90 caps gabapentin 300 mg capsule See Rx Instructions .Route 05/30/22 .COMPLEX #90 caps dulaglutide 0.75 mg/0.5 mL See Rx Instructions .Route 06/06/22 subcutaneous pen injector .COMPLEX #6 mL (Trulicity) blood sugar diagnostic (OneTouch #400 strips 08/21/22 Verio test strips) naproxen 375 mg tablet,delayed 375 mg PO .with dinner #14 tabs 08/21/22 release blood-glucose meter,continuous #1 ea 08/26/22 (Dexcom G7 Fleet Sales Manager) blood-glucose sensor (Dexcom G7 #1 ea 08/26/22 Sensor device) multivitamin (Multiple Vitamins 1 tab PO QAM #0 tabs 09/10/22 tablet) thiamine mononitrate (vit B1) 100 100 mg PO QAM #0 tabs 09/10/22 mg tablet (Vitamin B-1 (mononitrate)) L. Acidophilus,Casei,Rhamnosus 1 cap PO DAILY ##0 09/18/22 [Bio-K PLUS] cyanocobalamin (vitamin B-12) 500 1,000 mcg PO DAILY #30 tabs 09/18/22 mcg tablet (Vitamin B-12) diclofenac sodium 1 % topical gel 4 g topical QID #0 grams 09/18/22 gabapentin 100 mg capsule 100 mg PO BID@0800,1400 #0 caps 09/18/22 insulin glargine 100 unit/mL (3 40 unit (0.4 mL) subcut HS #45 mL 09/18/22 mL) subcutaneous pen (Lantus Solostar U-100 Insulin) magnesium oxide 400 mg (241.3 mg 400 mg PO BID #0 tabs 09/18/22 magnesium) tablet metoprolol succinate 25 mg 50 mg PO HS #90 tabs 09/18/22 tablet,extended release 24 hr psyllium husk (aspartame) 3.4 1 ea PO TID #0 grams 09/18/22 gram/5.8 gram oral powder (Metamucil Sugar-Free (aspartame)) propranolol 20 mg tablet 20 mg PO BID #60 tabs 10/14/22 tramadol 50 mg tablet 100 mg PO Q6H PRN PRN #30 tabs 08/14/23 chlordiazepoxide HCl 25 mg capsule 25 mg PO ONCE #15 caps 10/22/22 Allergies Allergy/AdvReac Type Severity Reaction Status Date / Time lactose intolerant AdvReac Mild Diarrhea Uncoded 10/10/22 19:53 General GALILEO: 2 Review of Systems Narrative: Review of Systems Constitutional: negative Eyes: negative ENT: negative Cardiovascular: negative Respiratory: negative Gastrointestinal: negative : negative Musculoskeletal: negative Skin: negative Neurologic: negative Psych: negative PFSH All Active Problems (Updated 10/19/22 @ 20:54 by John Mccord MD) Alcohol intoxication (Acute) Alcohol use disorder (Acute) Alcohol abuse (Chronic) Alcohol intoxication (Acute ~12/02/21) Ambulatory dysfunction (Acute) DVT prophylaxis (Acute) B12 deficiency (Acute) Sinus tachycardia (Acute) Thrombosis superficial vein, arm, acute (Acute) Anemia (Chronic) Leukocytosis (leucocytosis) (Acute) General weakness (Acute) Gallstones (Acute) Kidney lesion, pamunkey, left (Acute) Microcytic anemia (Acute) Colitis due to Clostridium difficile (Acute) Alcohol use disorder (Chronic) Dehiscence of operative wound (Acute) Subsequent encounter Skin ulcer of scrotum (Acute) De Quervain's tenosynovitis, left (Acute) 40 mg Depo-Medrol injection: 04/04/2022 Metabolic acidosis (Acute) Lamellar macular hole of both eyes (Acute 10/25/21) Type 1 diabetes, controlled, with neuropathy (Chronic ~05/2017) Adult onset, diagnosed 05/2017 [facility] Endo Dr. 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 CKD (chronic kidney disease) stage 4, GFR 15-29 ml/min Essential hypertension History of alcohol use disorder since 1989 with intermittent sobriety History of elevated PSA Per [employer] Records--01/14/2019 6.41, 04/28/2018 6.32; +Fam hx prostate cancer in F History of opioid abuse s/p surgeries; visiting brother 08/2021 ([facility] admission) History of renal cell cancer s/p nephrectomy Hyperlipidemia Lesion of bone of left forearm proximal radius lesion Osteoarthritis of elbows, bilateral Polyneuropathy associated with underlying disease DM Secondary hyperparathyroidism (~05/2021) 05/29/[place] [facility] [place] Solitary left kidney [facility] [place]ph[place] (initial 07/2020); s/p nephrectomy on R 2004 renal cell cancer; partial nephrectomy on L 2007 Tubular adenoma of colon 08/2018 colonoscopy [facility]; recall 5y Type 1 diabetes mellitus without complications Surgical History H/O arthroscopy of knee Remotely--both knees at some point; he cannot recall what, but thinks meniscal H/O partial nephrectomy (~04/2007) left H/O skin graft [facility] 07/12/22 Scrotal Abscess 07/15/22 Skin Graft with Bolster removal History of nephrectomy, right (~03/2004) Renal cell cancer Family History Mother , 54yo breast cancer Alcohol abuse Breast cancer Depression Substance abuse Father , ~70yo prostate cancer Alcohol abuse Prostate cancer Substance abuse Sister , throat caner (nicotine use) Alcohol abuse Cancer Cervical Substance abuse Social History Smoking/Tobacco Use Status: Never Smoking risk assessment performed?: Yes Alcohol Intake: current Alcohol Intake frequency: a few times a month Previous attempts at quittin Counseling given: Yes ([facility] AT [facility] [place]) Drug use: Never Substance use type: opiates Details: no IV drug use Adopted: No Caregiver/Support person: No Foster care: No Household members: other Details: Sober Living Facility Housing: apartment Number of Children: 4 number of grandchildren: 4 Communication Needs: None Education Level: college Do you need help understanding health information?: Rarely 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: RETIRED [employer] (ON SSDI) Pets and animals: Yes Pets and animals: cat(s) Sexually active: No Do you think of yourself as: straight/heterosexual Current gender identity: male What is your relationship status?: How often do you talk on the phone with friends or family?: three or more times per week How often do you get together with friends or relatives?: three or more times per week How often do you attend restorationist or mandaen services?: 4 or more times per year Do you belong to any clubs or organized social groups?: no Panel score (0-1 are the most socially isolated patients): 2 What type of physical activity do you participate in: walking, bicycling and other Details: EXERCISE ON STATIONARY BIKE Duration: < 15 minutes/day Frequency: 3-4 times per week Erin/Jainism: Latter Day Agree to transfusion: No Seatbelt use: always Helmet use: Yes Drive intox or ride w/intox driver manager: No Water heater temp set <120 deg: Yes Working smoke detector in home: Yes Fire extinguisher in home: Yes Do you feel safe at home: Yes Do you feel safe in your relationship?: Yes Exam Narrative Exam Narrative: Physical Examination General: alert, awake, cooperative, appears intoxicated HEENT: normocephalic, atraumatic; PERRL, EOM intact, conjunctiva normal; no nasal discharge; moist mucous membranes, oral and pharyngeal mucosa normal, tolerating secretions Neck: supple, trachea midline; full ROM Chest: normal to inspection Respiratory: normal respiratory effort, speaking in full sentences, clear to auscultation, no wheezing, rales or rhonchi Cardiac: regular rate, regular rhythm, S1S2 intact, no murmurs rubs or gallops GI: abdomen soft, non-tender, non-distended; no palpable mass or hepatosplenomegaly Skin: no lesions, rashes or trauma appreciated Neuro: AAOx3, cranial nerves intact, 5 out of 5 strength upper and lower extremities
--- NOTE | 2022-10-22 14:45 | RT.EKG_ITS ---
APPROVED REPORT Exam: Resting ECG Reason for Exam: tachycardia Patient Location: E HR:117 bpm ECG Measurements Heart Rate 117 AXIS LA 173 P 64 QRSd 97 QRS 41 QT 331 T 11 QTc 463 Conclusion Sinus tachycardia...rate> 99 Low voltage, precordial leads...precordial leads <1.0mV Physician: no stemi
--- NOTE | 2022-10-22 14:45 | DI.RAD_ITS ---
Exam(s) XR PORTABLE CHEST AP EXAM: XR PORTABLE CHEST AP CLINICAL HISTORY: drunk, tachycardia. TECHNIQUE: 2D digital imaging was performed. COMPARISON: CR,XR XR PORTABLE CHEST AP from 09/13/2022 FINDINGS: Single AP portable view. Heart size is upper normal. The mediastinum is not widened. Lungs are clear. No infiltrates nor obvious pleural effusions. IMPRESSION: No acute pulmonary findings on this single AP portable view of the chest. DATA REPOSITORY: RADIATION DOSE DELIVERED:
[2022-10-22] MEDS: chlordiazePOXIDE 25 MG CAP 50 MG PO (15:15)
[2022-10-22] MEDS: LORazepam 2 MG/ML VIAL IVP (15:15)
[2022-10-22] MEDS: Normal Saline 1,000 ML 1000 ML IV ×2 (15:19→17:06)
[2022-10-22 15:27] LABS: Abs Immature Grans 0.05 10^3/uL (0.0-0.06); Absolute Basophil Count 0.08 10^3/uL (0.0-0.2); Absolute Eosinophil Count 0.15 10^3/uL (0.0-0.7); Absolute Lymphocyte Count 2.03 10^3/uL (1.2-3.4); Absolute Monocyte Count 0.39 10^3/uL (0.1-0.8); Absolute Neutrophil Count 6.35 10^3/uL (1.2-6.7); Basophils % 0.9; Eosinophils % 1.7; HCT 32.2 % (40.0-50.0); HGB 10.3 g/dL (13.5-17.5); Immature Grans % 0.6; Lymphocytes % 22.4; MCH 26.1 pg (27.0-33.0); MCV 82 fL (80-95); MPV 9.1 fL (8.0-11.0); Monocytes % 4.3; Neutrophils % 70.1; Platelet Count 599 10^3/uL (130-400); RBC 3.94 10^6/uL (4.36-5.78); RDW 17.6 % (11.8-14.1); RDW-SD 52.4 fL; WBC 9.05 10^3/uL (4.4-10.8)
[2022-10-22 15:53] LABS: ALT 19 U/L (16-63); AST 21 U/L (15-37); Albumin 3.2 g/dL (3.4-5.0); Alkaline Phosphatase 91 U/L (46-116); BUN 62 mg/dL (7-18); Bilirubin, Total 0.2 mg/dL (0.2-1.0); CREATININE 2.3 mg/dL (0.70-1.30); Calcium 8.7 mg/dL (8.5-10.1); Chloride 96 mmol/L (98-107); ETHANOL BLOOD 311.5 mg/dL (<10); Estimated GFR 31.13 (mL/min/1.73m2); Glucose 203 mg/dL (74-106); Potassium 4.8 mmol/L (3.5-5.1); Sodium 129 mmol/L (136-145); Total Protein 8.1 g/dL (6.4-8.2)
--- NOTE | 2022-10-22 16:02 | NUR.NOTE ---
Nursing Note: Daughter Rebeca called wanting to speak with care management regarding care for her father after hospitalization for treatment. Called care management and gave daughters contact information. [phone]
[2022-10-22] MEDS: Thiamine 200 MG/2 ML VIAL 100 MG IM (17:05)
[2022-10-22] MEDS: Folic Acid 1 MG TAB PO (17:05)
--- NOTE | 2022-10-22 19:12 | NUR.NOTE ---
Nursing Note: paintinet voided in sleep on stretcher. Clothing saturated with urine. This RN and STEREOTYPER HELPER assisted patient with changing clothing and changing sheets
--- NOTE | 2022-10-22 19:19 | NUR.NOTE ---
This RN assumed care at this time, introduced self to pt, pt ambulated with walker at baseline and assisted to bathroom, d/c pending.
--- NOTE | 2022-10-23 13:25 | NUR.NOTE ---
Accessed chart to determine orders for EKG and to determine whether or not one needs to be cancelled. Nursing Note:
== END 2022-10-22 19:33 | disposition home or self-care (01) ==
PROVIDERS: Emergency Provider Emergency Medicine; PCP Nurse Practitioner Adult Health
DX: F10.120 Alcohol abuse with intoxication, uncomplicated (principal); R00.0 Tachycardia, unspecified; I12.9 Hypertensive chronic kidney disease with stage 1 through stage 4 chronic kidney disease, or unspecified chronic kidney disease; E10.22 Type 1 diabetes mellitus with diabetic chronic kidney disease; N18.4 Chronic kidney disease, stage 4 (severe); Y90.8 Blood alcohol level of 240 mg/100 ml or more; Z79.899 Other long term (current) drug therapy
CPT/HCPCS: 80053; 93005; 96361; 96374; 99284; 71045; 80320; 85025; 93010; 99283; J2060

== ENCOUNTER 2022-10-23 01:55 | Emergency (ER) | payer OTHER, MEDICAID, SELFPAY ==
[2022-10-23] VITALS (57 sets, daily range): BP systolic 85–153; BP diastolic 42–88; PULSE 84–143; RESP 10–26; TEMP 36.6; O2SAT 82–99
--- NOTE | 2022-10-23 01:58 | ED.GENADUL_ITS ---
Discharge Plan Discharge Details Chief Complaint: ETOHWithdr Clinical Impression: Alcohol intoxication, Tachycardia Primary Care Provider: Mel Llamas ED Provider: David Urena Home Meds and New Rx's Prescriptions: No Action (DME) lancets Misc See Rx Instructions .MEDSUPPLY Rx Instructions: As directed to check blood glucose four times daily. On insulin. Dispense covered brand. duloxetine 60 mg capsule,delayed release(DR/EC) See Rx Instructions .ROUTE .COMPLEX Qty: 90 3RF Dose Instruction: TAKE 1 CAPSULE BY MOUTH EVERY MORNING Rx Instructions: TAKE 1 CAPSULE BY MOUTH EVERY MORNING Trulicity 0.75 mg/0.5 mL pen injector See Rx Instructions .ROUTE .COMPLEX Qty: 6 0RF Dose Instruction: INJECT 0.5ML UNDER THE SKIN ONCE WEEKLY Rx Instructions: INJECT 0.5ML UNDER THE SKIN ONCE WEEKLY naproxen 375 mg tablet,delayed release (DR/EC) 375 mg PO .with dinner Qty: 14 0RF Rx Instructions: Post-op pain (DME) OneTouch Verio test strips Strip See Rx Instructions .ROUTE .COMPLEX Qty: 400 0RF Dose Instruction: USE TO TEST BLOOD GLUCOSE FOUR TIMES DAILY Rx Instructions: USE TO TEST BLOOD GLUCOSE FOUR TIMES DAILY chlorthalidone 15 mg tablet 7.5 mg PO DAILY Patient Comments: 05/29/21 visit lisinopril 2.5 mg tablet 2.5 mg PO DAILY Patient Comments: 05/29/21 office visit baking soda PO Rx Instructions: 1/2 teaspoon per day due to metabolic acidosis atorvastatin 20 mg tablet See Rx Instructions .ROUTE .COMPLEX Qty: 90 3RF Dose Instruction: TAKE 1 TABLET BY MOUTH EVERY NIGHT AT BEDTIME FOR CHOLESTEROL OR DIABETES Rx Instructions: TAKE 1 TABLET BY MOUTH EVERY NIGHT AT BEDTIME FOR CHOLESTEROL OR DIABETES (DME) pen needle, diabetic [BD Ultra-Fine Doreen Pen Needle] 32 gauge x needle See Rx Instructions .ROUTE .MEDSUPPLY Qty: 360 3RF Rx Instructions: BD Ultrafine 32G X 6mm, 4x/day for goal A1C<7 for E10.9 gabapentin 300 mg capsule See Rx Instructions .ROUTE .COMPLEX Qty: 90 0RF Dose Instruction: TAKE 1 CAPSULE BY MOUTH AT BEDTIME NEEDED FOR NERVE PAIN INLEGS Rx Instructions: TAKE 1 CAPSULE BY MOUTH AT BEDTIME NEEDED FOR NERVE PAIN INLEGS (DME) Dexcom G7 Prime Minister Misc See Rx Instructions .ROUTE Qty: 1 0RF Rx Instructions: As directed (DME) Dexcom G7 Sensor Device See Rx Instructions .ROUTE Qty: 1 0RF Rx Instructions: As directed tramadol 50 mg Tablet 100 mg PO Q6H PRN PRNQty: 30 0RF Rx Instructions: May take one tab if pain controlled with that lower dose propranolol 20 mg Tablet 20 mg PO BID Qty: 60 0RF chlordiazepoxide HCl 25 mg capsule 25 mg PO ONCE Qty: 15 0RF Rx Instructions: Day 1: 50mg (two tabs) q6hr; Day 2: 25mg q6hr; Day 3: 25mg BID; Day 4: 25mg qHS disulfiram 250 mg tablet 250 mg PO 1XD Patient Comments: TAKE ONE TABLET BY MOUTH EVERY DAY FOR ALCOHOL USE DISORDER multivitamin [Multiple Vitamins] Tablet 1 tab PO QAM Qty: 0 0RF thiamine mononitrate (vit B1) [Vitamin B-1 (mononitrate)] 100 mg Tablet 100 mg PO QAM Qty: 0 0RF cyanocobalamin (vitamin B-12) [Vitamin B-12] 500 mcg Tablet 1,000 mcg PO DAILY Qty: 30 0RF gabapentin 100 mg Capsule 100 mg PO BID@0800,1400 Qty: 0 0RF diclofenac sodium 1 % Gel 4 g topical QID Qty: 0 0RF Rx Instructions: apply to both knees QID magnesium oxide 400 mg (241.3 mg magnesium) Tablet 400 mg PO BID Qty: 0 0RF Metamucil Sugar-Free (aspart) 3.4 gram/5.8 gram Powder 1 ea PO TID Qty: 0 0RF L. Acidophilus,Casei,Rhamnosus [Bio-K Plus] 1 cap PO DAILY Qty: 0 0RF metoprolol succinate 25 mg tablet extended release 24 hr 50 mg PO HS Qty: 90 3RF insulin glargine [Lantus Solostar U-100 Insulin] 100 unit/mL (3 mL) insulin pen 40 unit subcut HS MDD 46 units daily Qty: 45 3RF Rx Instructions: DMT1 Medical Decision Making 62-year-old male with a past medical history of CKD, hypertension, notable alcohol use and abuse in the past, renal cell carcinoma, solitary left kidney, type 1 diabetes, who presents today for intoxication. Patient was seen and assessed earlier today and discharged at 1435 after being intoxicated. Un fortunately when he left he immediately went to the liquor store began drinking alcohol once again. He had been drinking for the last few hours. It is not overly clear what specific type of alcohol he drank, but it was purchased alcohol. Patient denies any other complaints at this time. No other modifying factors. He is being brought in by EMS currently. Exam demonstrates notably intoxicated male, no signs of acute distress otherwise. Mildly tachycardic, which she was up on his previous arrival. We will rehydrate, monitor closely and reassess. 4:15 AM Laboratory work-up shows evidence of hyponatremia, pancreatitis, elevated anion gap at 17, pH is 7.29, calcium of 8.1. Unfortunately the patient began getting very violent here in the ED, and started running around screaming fuck you! I am going to mess you up doc! Patient began throwing chairs and knocking over tables. Patient was no longer safe for himself or staff. Decision was made to sedate patient for his own safety. 5 AM Patient was sedated, and tolerated this well. He sat in bed for quite some time but eventually voluntarily laid back in went to sleep. Patient has been sleeping well. We will continue to monitor closely. Of note patient's work-up shows a notably elevated alcohol level at 320. Patient does have a minimally low sodium at 126, anion gap of 17, bicarb of 14, minimal acidosis with a pH of 7.29, however no ketones are noted in the urine. Symptoms inconsistent with DKA. Thyroid function normal. Patient has a history of being on metoprolol and propranolol, but has not filled these for the past month. Calcium is low. We will give an amp of calcium gluconate. We will continue to monitor. 7:31 AM Patient is still resting comfortably. Heart rate remains elevated at 120s to 130s. Sinus tachycardia. No history of PE, symptoms inconsistent with pulmonary embolism clinically based on exam. No signs of heart strain on EKG. We will give the patient dose of metoprolol per what he has had normally in the past. Patient will remain in observation here in the ED until he awakes and is deemed clinically sober for discharge. Patient will be signed out to my colleague Dr. Pratt. [facility] General Date/Time Provider Initiated Documentation: 10/23/22 01:58 . HPI Narrative: 62-year-old male with a past medical history of CKD, hypertension, notable alcohol use and abuse in the past, renal cell carcinoma, solitary left kidney, type 1 diabetes, who presents today for intoxication. Patient was seen and assessed earlier today and discharged at 1435 after being intoxicated. Unfortunately when he left he immediately went to the liquor store began drinking alcohol once again. He had been drinking for the last few hours. It is not overly clear what specific type of alcohol he drank, but it was purchased alcohol. Patient denies any other complaints at this time. No other modifying factors. He is being brought in by EMS currently. Related Data Home Medications Medication Instructions Recorded Confirmed lancets 08/03/20 09/10/22 baking soda PO 05/29/21 08/21/22 chlorthalidone 15 mg tablet 7.5 mg PO DAILY 05/29/21 10/10/22 lisinopril 2.5 mg tablet 2.5 mg PO DAILY 05/29/21 10/10/22 atorvastatin 20 mg tablet See Rx Instructions .Route 10/19/21 10/10/22 .COMPLEX #90 tabs pen needle, diabetic 32 gauge x #360 ea 02/01/22 09/10/2232 (BD Ultra-Fine Doreen Pen Needle) duloxetine 60 mg capsule,delayed See Rx Instructions .Route 02/20/22 10/23/22 release .COMPLEX #90 caps gabapentin 300 mg capsule See Rx Instructions .Route 05/30/22 10/23/22 .COMPLEX #90 caps dulaglutide 0.75 mg/0.5 mL See Rx Instructions .Route 06/06/22 10/10/22 subcutaneous pen injector .COMPLEX #6 mL (Trulicity) blood sugar diagnostic (OneTouch #400 strips 08/21/22 09/10/22 Verio test strips) naproxen 375 mg tablet,delayed 375 mg PO .with dinner #14 tabs 08/21/22 10/23/22 release blood-glucose meter,continuous #1 ea 08/26/22 09/10/22 (Dexcom G7 Prime Minister) blood-glucose sensor (Dexcom G7 #1 ea 08/26/22 09/10/22 Sensor device) multivitamin (Multiple Vitamins 1 tab PO QAM #0 tabs 09/10/22 10/10/22 tablet) thiamine mononitrate (vit B1) 100 100 mg PO QAM #0 tabs 09/10/22 10/10/22 mg tablet (Vitamin B-1 (mononitrate)) L. Acidophilus,Casei,Rhamnosus 1 cap PO DAILY ##0 09/18/22 10/10/22 [Bio-K PLUS] cyanocobalamin (vitamin B-12) 500 1,000 mcg PO DAILY #30 tabs 09/18/22 10/10/22 mcg tablet (Vitamin B-12) diclofenac sodium 1 % topical gel 4 g topical QID #0 grams 09/18/22 10/10/22 gabapentin 100 mg capsule 100 mg PO BID@0800,1400 #0 caps 09/18/22 10/10/22 insulin glargine 100 unit/mL (3 40 unit (0.4 mL) subcut HS #45 mL 09/18/22 10/10/22 mL) subcutaneous pen (Lantus Solostar U-100 Insulin) magnesium oxide 400 mg (241.3 mg 400 mg PO BID #0 tabs 09/18/22 10/10/22 magnesium) tablet metoprolol succinate 25 mg 50 mg PO HS #90 tabs 09/18/22 10/10/22 tablet,extended release 24 hr psyllium husk (aspartame) 3.4 1 ea PO TID #0 grams 09/18/22 10/10/22 gram/5.8 gram oral powder (Metamucil Sugar-Free (aspartame)) propranolol 20 mg tablet 20 mg PO BID #60 tabs 10/14/22 10/23/22 tramadol 50 mg tablet 100 mg PO Q6H PRN PRN #30 tabs 10/14/22 10/23/22 chlordiazepoxide HCl 25 mg capsule 25 mg PO ONCE #15 caps 10/22/22 disulfiram 250 mg tablet 250 mg PO 1XD 10/23/22 10/23/22 Previous Rx's Medication Instructions Recorded atorvastatin 20 mg tablet See Rx Instructions .Route 10/19/21 .COMPLEX #90 tabs pen needle, diabetic 32 gauge x #360 ea 02/01/22 532 (BD Ultra-Fine Doreen Pen Needle) duloxetine 60 mg capsule,delayed See Rx Instructions .Route 02/20/22 release .COMPLEX #90 caps gabapentin 300 mg capsule See Rx Instructions .Route 05/30/22 .COMPLEX #90 caps dulaglutide 0.75 mg/0.5 mL See Rx Instructions .Route 06/06/22 subcutaneous pen injector .COMPLEX #6 mL (Trulicity) blood sugar diagnostic (OneTouch #400 strips 08/21/22 Verio test strips) naproxen 375 mg tablet,delayed 375 mg PO .with dinner #14 tabs 08/21/22 release blood-glucose meter,continuous #1 ea 08/26/22 (Dexcom G7 Prime Minister) blood-glucose sensor (Dexcom G7 #1 ea 08/26/22 Sensor device) multivitamin (Multiple Vitamins 1 tab PO QAM #0 tabs 09/10/22 tablet) thiamine mononitrate (vit B1) 100 100 mg PO QAM #0 tabs 09/10/22 mg tablet (Vitamin B-1 (mononitrate)) L. Acidophilus,Casei,Rhamnosus 1 cap PO DAILY ##0 09/18/22 [Bio-K PLUS] cyanocobalamin (vitamin B-12) 500 1,000 mcg PO DAILY #30 tabs 09/18/22 mcg tablet (Vitamin B-12) diclofenac sodium 1 % topical gel 4 g topical QID #0 grams 09/18/22 gabapentin 100 mg capsule 100 mg PO BID@0800,1400 #0 caps 09/18/22 insulin glargine 100 unit/mL (3 40 unit (0.4 mL) subcut HS #45 mL 09/18/22 mL) subcutaneous pen (Lantus Solostar U-100 Insulin) magnesium oxide 400 mg (241.3 mg 400 mg PO BID #0 tabs 09/18/22 magnesium) tablet metoprolol succinate 25 mg 50 mg PO HS #90 tabs 09/18/22 tablet,extended release 24 hr psyllium husk (aspartame) 3.4 1 ea PO TID #0 grams 09/18/22 gram/5.8 gram oral powder (Metamucil Sugar-Free (aspartame)) propranolol 20 mg tablet 20 mg PO BID #60 tabs 10/14/22 tramadol 50 mg tablet 100 mg PO Q6H PRN PRN #30 tabs 10/14/22 chlordiazepoxide HCl 25 mg capsule 25 mg PO ONCE #15 caps 10/22/22 Allergies Allergy/AdvReac Type Severity Reaction Status Date / Time lactose intolerant AdvReac Mild Diarrhea Uncoded 10/10/22 19:53 General GALILEO: 2 Review of Systems All systems reviewed & are unremarkable except as noted in HPI and below PFSH All Active Problems (Updated 10/23/22 @ 07:33 by David Urena DO) Alcohol intoxication (Acute) Alcohol use disorder (Acute) Alcohol abuse (Chronic) Tachycardia (Acute) Alcohol intoxication (Acute ~12/02/21) Ambulatory dysfunction (Acute) DVT prophylaxis (Acute) B12 deficiency (Acute) Sinus tachycardia (Acute) Thrombosis superficial vein, arm, acute (Acute) Anemia (Chronic) Leukocytosis (leucocytosis) (Acute) General weakness (Acute) Gallstones (Acute) Kidney lesion, [place], left (Acute) Microcytic anemia (Acute) Colitis due to Clostridium difficile (Acute) Alcohol use disorder (Chronic) Dehiscence of operative wound (Acute) Subsequent encounter Skin ulcer of scrotum (Acute) De Quervain's tenosynovitis, left (Acute) 40 mg Depo-Medrol injection: 04/04/2022 Metabolic acidosis (Acute) Lamellar macular hole of both eyes (Acute 10/25/21) Type 1 diabetes, controlled, with neuropathy (Chronic ~05/2017) Adult onset, diagnosed 05/2017 [facility] Endo Dr. 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 CKD (chronic kidney disease) stage 4, GFR 15-29 ml/min Essential hypertension History of alcohol use disorder since 1989 with intermittent sobriety History of elevated PSA Per [facility] Records--01/14/2019 6.41, 04/28/2018 6.32; +Fam hx prostate cancer in F History of opioid abuse s/p surgeries; visiting brother 08/2021 ([facility] admission) History of renal cell cancer s/p nephrectomy Hyperlipidemia Lesion of bone of left forearm proximal radius lesion Osteoarthritis of elbows, bilateral Polyneuropathy associated with underlying disease DM Secondary hyperparathyroidism (~05/2021) [place]29[place] [facility] [place] Solitary left kidney [facility] [place] 07/2020[place] s/p nephrectomy on R 2004 renal cell cancer; partial nephrectomy on L 2007 Tubular adenoma of colon 08/2018 colonoscopy [facility]; recall 5y Type 1 diabetes mellitus without complications Surgical History H/O arthroscopy of knee Remotely--both knees at some point; he cannot recall what, but thinks meniscal H/O partial nephrectomy (~04/2007) left H/O skin graft [facility] [place] Scrotal Abscess 07/15/22 Skin Graft with Bolster removal History of nephrectomy, right (~03/2004) Renal cell cancer Family History Mother , 54yo breast cancer Alcohol abuse Breast cancer Depression Substance abuse Father , ~70yo prostate cancer Alcohol abuse Prostate cancer Substance abuse Sister , throat caner (nicotine use) Alcohol abuse Cancer Cervical Substance abuse Social History Smoking/Tobacco Use Status: Never Smoking risk assessment performed?: Yes Alcohol Intake: current Alcohol Intake frequency: a few times a month Previous attempts at quittin Counseling given: Yes [facility] Drug use: Never Substance use type: opiates Details: no IV drug use Adopted: No Caregiver/Support person: No Foster care: No Household members: other Details: Sober Living Facility Housing: apartment Number of Children: 4 number of grandchildren: 4 Communication Needs: None Education Level: college Do you need help understanding health information?: Rarely 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) Pets and animals: Yes Pets and animals: cat(s) Sexually active: No Do you think of yourself as: straight/heterosexual Current gender identity: male What is your relationship status?: How often do you talk on the phone with friends or family?: three or more times per week How often do you get together with friends or relatives?: three or more times per week How often do you attend baptist or methodist services?: 4 or more times per year Do you belong to any clubs or organized social groups?: no Panel score (0-1 are the most socially isolated patients): 2 What type of physical activity do you participate in: walking, bicycling and other Details: EXERCISE ON STATIONARY BIKE Duration: < 15 minutes/day Frequency: 3-4 times per week Erin/Protestant: Christianity Agree to transfusion: No Seatbelt use: always Helmet use: Yes Drive intox or ride w/intox vibratory pile driver: No Water heater temp set <120 deg: Yes Working smoke detector in home: Yes Fire extinguisher in home: Yes Do you feel safe at home: Yes Do you feel safe in your relationship?: Yes Exam Narrative Exam Narrative: 1.Const: Well-nourished, Well-developed, appearing stated age 2.Eyes: PERRL, no conjunctival injection, and symmetrical lids. 3.ENT: Atraumatic external nose and ears. Moist MM. Neck: Symmetric, trachea midline, No thyromegaly. 4.CVS: +S1/S2, No murmurs or gallops. Peripheral pulses 2+ and equal in all extremities. Brisk capillary refill in all extremities. 5.RESP: Unlabored respiratory effort. Clear to auscultation bilaterally. No wheezes rales or rhonchi 6.GI: Soft, Nontender/Nondistended, No hepatosplenomegaly. No guarding or rebound. 7.MSK: Normocephalic/Atraumatic, Extremities w/o deformity or ttp No cyanosis or clubbing, Normal movement of all extremities 8.Skin: Warm, Dry. No rashes or lesions. 9.Neuro: director of food and nutrition services II-XII grossly intact. Sensation grossly intact, no focal neurologic deficits. 10.Psych: (AAO) x2, notably intoxicated Critical Care Time Critical Care Time Critical Care Time: Yes Total Critical Care Time: 35 Attestation: Upon my evaluation, this patient had a high probability of imminent or life- threatening deterioration, which required my direct attention, intervention, and personal management. I have personally provided 35 minutes of critical care time exclusive of time spent on separately billable procedures. Time includes review of laboratory data, radiology results, discussion with consultants, and monitoring for potential decompensation. Interventions were performed as documented.
[2022-10-23 02:44] LABS: BE (Venous) -13 mmol/L (-2-3); HCO3 (Venous) 14 mmol/L (23-28); O2 Sat (Venous) 93 %; TCO2 (Venous) 13 mmol/L (24-29); pCO2 (Venous) 29 mmHg (41-51); pH (Venous) 7.29 (7.31-7.41); pO2 (Venous) 69 mmHg
[2022-10-23 02:52] LABS: Absolute Basophil Count 0.09 10^3/uL (0.0-0.2); Absolute Eosinophil Count 0.33 10^3/uL (0.0-0.7); Absolute Lymphocyte Count 2.42 10^3/uL (1.2-3.4); Absolute Monocyte Count 0.45 10^3/uL (0.1-0.8); Absolute Neutrophil Count 5.13 10^3/uL (1.2-6.7); Basophils % 1.1; Eosinophils % 3.9; HCT 30.7 % (40.0-50.0); HGB 9.7 g/dL (13.5-17.5); Immature Grans % 1.2; Lymphocytes % 28.4; MCH 25.9 pg (27.0-33.0); MCHC 31.6 % (32.0-36.0); MCV 82 fL (80-95); MPV 9.1 fL (8.0-11.0); Monocytes % 5.3; Neutrophils % 60.1; Platelet Count 502 10^3/uL (130-400); RBC 3.74 10^6/uL (4.36-5.78); RDW 17.4 % (11.8-14.1); RDW-SD 51.9 fL; WBC 8.52 10^3/uL (4.4-10.8)
[2022-10-23 03:08] LABS: Troponin I < 50 ng/L (<or=60)
[2022-10-23 03:12] LABS: ALT 16 U/L (16-63); AST 18 U/L (15-37); Alkaline Phosphatase 85 U/L (46-116); BUN 48 mg/dL (7-18); Bilirubin, Total 0.1 mg/dL (0.2-1.0); CREATININE 1.7 mg/dL (0.70-1.30); Calcium 8.1 mg/dL (8.5-10.1); Chloride 95 mmol/L (98-107); Estimated GFR 44.74 (mL/min/1.73m2); Glucose 262 mg/dL (74-106); Lipase 345 U/L (16-77); Potassium 4.9 mmol/L (3.5-5.1); Sodium 126 mmol/L (136-145); TSH (W/Ref FT4) 0.74 uIU/mL (0.36-3.74)
[2022-10-23 03:16] LABS: ETHANOL BLOOD 320.5 mg/dL (<10)
[2022-10-23] MEDS: LORazepam 2 MG/ML VIAL 1 MG IM (04:29)
[2022-10-23] MEDS: diphenhydrAMINE 50 MG/ML VIAL 25 MG IM (04:29)
[2022-10-23] MEDS: Haloperidol 5 MG/ML VIAL 4 MG IM (04:29)
[2022-10-23 05:13] LABS: Bilirubin Negative (Negative); Blood Trace-intact (Negative); Clarity Clear (Clear); Glucose Negative (Negative); Ketones Negative (Negative); Leukocyte Esterase Negative (Negative); Nitrite Negative (Negative); Specific Gravity <= 1.005 (1.005-1.025); Urobilinogen 0.2 mg/dL (Up to 0.2); pH 5.5 (5-8)
[2022-10-23 05:21] LABS: Bacteria Rare HPF (Negative); C & S Indicated? No; Crystals Negative HPF (Negative); Epithelial Cells Negative HPF (Negative); Mucus Negative (Negative); RBC 0-2 HPF (0-2); WBC Negative HPF (0-5)
[2022-10-23] MEDS: Calcium Gluconate 4.65 MEQ/10 ML VIAL 4.65 MG IVP (05:47)
[2022-10-23] MEDS: Normal Saline 1,000 ML 1000 ML IV (05:47)
[2022-10-23 06:19] LABS: *AMPHETAMINES SCREEN URINE Negative (Negative); *BARBITURATES SCREEN URINE Positive (Negative); *BENZODIAZEPINES SCREEN URINE Negative (Negative); Cannabinoids THC Negative (Negative); Cocaine Screen,Urine Negative (Negative); METHADONE URINE SCREEN Negative (Negative); OPIATES URINE SCREEN Negative (Negative)
[2022-10-23 06:25] LABS: Tricyclic Antidepressants Negative (Negative)
[2022-10-23] MEDS: Metoprolol 5 MG/5 ML VIAL IVP (07:37)
[2022-10-23] MEDS: Normal Saline 1,000 ML 500 ML IV (08:56)
[2022-10-23] MEDS: LORazepam 2 MG/ML VIAL IVP (09:35)
--- NOTE | 2022-10-23 10:13 | ED.PROG_ITS ---
Date of service: 10/23/22 Time of Service: 10:13 Medical Decision Making pt now awake, did fall from standing earlier when trying to get dressed and was tremulous, iv ativan ordered and he had a good response to this. He did not strike his head and has no pain anywhere so do not feel imaging indicated. Will continue to monitor, head men's tennis coach paged head men's tennis coach saw the patient and gave him resources. Pt has no si/hi and is of sound mind. HE has decision making capacity and doesn't want to be admitted, he does have oral librium prescribed and advised he should take this if he wants to try and stop drinking but to not mix the two together. Advised to f/u with his pcp and return precautions given Sign Out Sign Out Data: Sign Out Comment: Violent and intoxicated during the evening. Reassess for clinical sobriety. Last updated by David Urena DO at 10/23/22 07:55 Discharge Plan Disposition Patient Disposition: Home Condition: Stable Discharge Details Clinical Impression: Alcohol intoxication, Tachycardia Primary Care Provider: Mel Llamas ED Provider: Froilan Pratt Home Meds and New Rx's Prescriptions: Continued (DME) lancets Misc See Rx Instructions .MEDSUPPLY Rx Instructions: As directed to check blood glucose four times daily. On insulin. Dispense covered brand. duloxetine 60 mg capsule,delayed release(DR/EC) See Rx Instructions .ROUTE .COMPLEX Qty: 90 3RF Dose Instruction: TAKE 1 CAPSULE BY MOUTH EVERY MORNING Rx Instructions: TAKE 1 CAPSULE BY MOUTH EVERY MORNING Trulicity 0.75 mg/0.5 mL pen injector See Rx Instructions .ROUTE .COMPLEX Qty: 6 0RF Dose Instruction: INJECT 0.5ML UNDER THE SKIN ONCE WEEKLY Rx Instructions: INJECT 0.5ML UNDER THE SKIN ONCE WEEKLY naproxen 375 mg tablet,delayed release (DR/EC) 375 mg PO .with dinner Qty: 14 0RF Rx Instructions: Post-op pain (DME) OneTouch Verio test strips Strip See Rx Instructions .ROUTE .COMPLEX Qty: 400 0RF Dose Instruction: USE TO TEST BLOOD GLUCOSE FOUR TIMES DAILY Rx Instructions: USE TO TEST BLOOD GLUCOSE FOUR TIMES DAILY chlorthalidone 15 mg tablet 7.5 mg PO DAILY Patient Comments: 05/29/21 visit lisinopril 2.5 mg tablet 2.5 mg PO DAILY Patient Comments: 05/29/21 office visit baking soda PO Rx Instructions: 1/2 teaspoon per day due to metabolic acidosis atorvastatin 20 mg tablet See Rx Instructions .ROUTE .COMPLEX Qty: 90 3RF Dose Instruction: TAKE 1 TABLET BY MOUTH EVERY NIGHT AT BEDTIME FOR CHOLESTEROL OR DIABETES Rx Instructions: TAKE 1 TABLET BY MOUTH EVERY NIGHT AT BEDTIME FOR CHOLESTEROL OR DIABETES (DME) pen needle, diabetic [BD Ultra-Fine Doreen Pen Needle] 32 gauge x / needle See Rx Instructions .ROUTE .MEDSUPPLY Qty: 360 3RF Rx Instructions: BD Ultrafine 32G X 6mm, 4x/day for goal A1C<7 for E10.9 gabapentin 300 mg capsule See Rx Instructions .ROUTE .COMPLEX Qty: 90 0RF Dose Instruction: TAKE 1 CAPSULE BY MOUTH AT BEDTIME NEEDED FOR NERVE PAIN INLEGS Rx Instructions: TAKE 1 CAPSULE BY MOUTH AT BEDTIME NEEDED FOR NERVE PAIN INLEGS (DME) Dexcom G7 Medical Lab Assistant Misc See Rx Instructions .ROUTE Qty: 1 0RF Rx Instructions: As directed (DME) Dexcom G7 Sensor Device See Rx Instructions .ROUTE Qty: 1 0RF Rx Instructions: As directed tramadol 50 mg Tablet 100 mg PO Q6H PRN PRNQty: 30 0RF Rx Instructions: May take one tab if pain controlled with that lower dose propranolol 20 mg Tablet 20 mg PO BID Qty: 60 0RF chlordiazepoxide HCl 25 mg capsule 25 mg PO ONCE Qty: 15 0RF Rx Instructions: Day 1: 50mg (two tabs) q6hr; Day 2: 25mg q6hr; Day 3: 25mg BID; Day 4: 25mg qHS disulfiram 250 mg tablet 250 mg PO 1XD Patient Comments: TAKE ONE TABLET BY MOUTH EVERY DAY FOR ALCOHOL USE DISORDER multivitamin [Multiple Vitamins] Tablet 1 tab PO QAM Qty: 0 0RF thiamine mononitrate (vit B1) [Vitamin B-1 (mononitrate)] 100 mg Tablet 100 mg PO QAM Qty: 0 0RF cyanocobalamin (vitamin B-12) [Vitamin B-12] 500 mcg Tablet 1,000 mcg PO DAILY Qty: 30 0RF gabapentin 100 mg Capsule 100 mg PO BID@0800,1400 Qty: 0 0RF diclofenac sodium 1 % Gel 4 g topical QID Qty: 0 0RF Rx Instructions: apply to both knees QID magnesium oxide 400 mg (241.3 mg magnesium) Tablet 400 mg PO BID Qty: 0 0RF Metamucil Sugar-Free (aspart) 3.4 gram/5.8 gram Powder 1 ea PO TID Qty: 0 0RF L. Acidophilus,Casei,Rhamnosus [Bio-K Plus] 1 cap PO DAILY Qty: 0 0RF metoprolol succinate 25 mg tablet extended release 24 hr 50 mg PO HS Qty: 90 3RF insulin glargine [Lantus Solostar U-100 Insulin] 100 unit/mL (3 mL) insulin pen 40 unit subcut HS MDD 46 units daily Qty: 45 3RF Rx Instructions: DMT1 Discharge Instructions Instructions: Abuse of Alcohol (ED) Additional Instructions: follow up with your primary care provider within 1 week and also if you want to stop drinking call the numbers provided to you by the head men's tennis coach do not take the librium (chlordiazepoxide) if you are drinking alcohol if you feel more ill, have severe pain or persistent vomiting return to the emergency department
--- NOTE | 2022-10-25 12:55 | NUR.NOTE ---
Accessed chart to determine orders for EKG and to determine whether or not one needs to be cancelled. Nursing Note:
== END 2022-10-23 10:50 | disposition home or self-care (01) ==
PROVIDERS: Student in an Organized Health Care Education/Training Program; Emergency Provider Emergency Medicine; PCP Nurse Practitioner Adult Health
DX: F10.120 Alcohol abuse with intoxication, uncomplicated (principal); R00.0 Tachycardia, unspecified; I12.9 Hypertensive chronic kidney disease with stage 1 through stage 4 chronic kidney disease, or unspecified chronic kidney disease; E10.22 Type 1 diabetes mellitus with diabetic chronic kidney disease; N18.4 Chronic kidney disease, stage 4 (severe); Y90.8 Blood alcohol level of 240 mg/100 ml or more; Z79.899 Other long term (current) drug therapy
CPT/HCPCS: 80053; 80307; 82805; 83690; 96361; 96372; 96374; 96376; 99284; 80320; 81003; 81015; 84443; 84484; 85025; 99283; J0612; J1200; J1630; J2060

== ENCOUNTER 2023-09-01 04:22 | Outpatient (CLI) | payer OTHER, SELFPAY ==
[2023-09-01 08:27] LABS: ALT 20 U/L (16-63); AST 14 U/L (15-37); Albumin 3.9 g/dL (3.4-5.0); Alkaline Phosphatase 89 U/L (46-116); Anion Gap 11.1 mmol/L (3-11); BUN 68 mg/dL (7-18); Bilirubin, Total 0.67 mg/dL (0.2-1.0); CO2 21.9 mmol/L (21.0-32.0); CREATININE 2.6 mg/dL (0.70-1.30); Calcium 9.3 mg/dL (8.5-10.1); Calculated LDL 87 mg/dL (<100); Chloride 109 mmol/L (98-107); Cholesterol 151 mg/dL (<200); Glucose 147 mg/dL (74-106); HDL Cholesterol 41 mg/dL (40-60); Potassium 4.7 mmol/L (3.5-5.1); Sodium 142 mmol/L (136-145); Total Protein 7.9 g/dL (6.4-8.2); Triglyceride 119 mg/dL (<150)
[2023-09-01 08:32] LABS: COMMENT (LAB VIEW ONLY) 85.08 mg/dL
[2023-09-01 08:37] LABS: Microalb ug/mg Crea 785.8 ug/mg Cr
[2023-09-01 08:57] LABS: Hemoglobin A1C 7.3 % (<5.7)
[2023-09-05 14:40] LABS: ZnT8 Antibodies <15.0 U/mL (<15.0)
== END 2023-09-01 04:23 | disposition home or self-care (01) ==
LOC: LBO 04:23
PROVIDERS: PCP Nurse Practitioner Adult Health; Referring Provider Nurse Practitioner Adult Health; Visit Provider Nurse Practitioner Adult Health
DX: E10.40 Type 1 diabetes mellitus with diabetic neuropathy, unspecified (principal)
CPT/HCPCS: 36415; 80053; 80061; 86337; 86341; 82043; 82570; 83036

== ENCOUNTER 2024-01-08 13:28 | Inpatient (IN) | payer OTHER, SELFPAY ==
[2024-01-08] VITALS (29 sets, daily range): BP systolic 119–162; BP diastolic 70–105; PULSE 80–142; RESP 14–30; TEMP 36.2–36.9; O2SAT 92–100
--- NOTE | 2024-01-08 13:30 | RT.EKG_ITS ---
APPROVED REPORT Exam: Resting ECG Reason for Exam: ETOH Withdrawl Patient Location: E HR:130 bpm ECG Measurements Heart Rate 130 AXIS GA 141 P 65 QRSd 100 QRS 64 QT 316 T 0 QTc 464 Conclusion Sinus tachycardia...rate> 99
--- NOTE | 2024-01-08 14:08 | W.ED.GENAD ---
Discharge Plan Disposition Patient Disposition: Admit to [facility] Condition: Critical Discharge Details Clinical Impression: Alcohol use disorder, Alcohol withdrawal, ALEJANDRO (acute kidney injury), Hyperglycemia Admit Date/Time: 01/08/24 15:44 Admit Provider: Chaparro Brown Attending Provider: Chaparro Brown Primary Care Provider: Mel Llamas ED Provider: Skinny Cage Discharge Data Discharge Date/Time-TO BE ENTERED AT DEPARTURE: 01/08/24 16:28 HPI General Mode of arrival: EMS. Date/Time Provider Initiated Documentation: 01/08/24 13:53. Limitations to Documentation: no limitations. Information obtained by: patient. HPI Narrative: 63-year-old male with history of multiple medical problems including renal cell carcinoma status post nephrectomy, insulin-dependent diabetes, hypertension, alcohol use disorder, here with acute alcohol withdrawal. Patient notes he has been drinking approximately half a gallon of 100 proof hard liquor daily over the past month his last drink was about 6 to 8 hours prior to arrival about 4 hours ago he started to feel shaky and have anxiety. This has worsened. He recognizes he is in acute alcohol withdrawal and is requesting treatment. Patient does note having withdrawal in the past that progressed to seizures. Patient does note associated abdominal discomfort as well as some mild chest discomfort. He states he had a black tarry stool earlier today. Abdominal pain is localized to upper abdomen. No associated vomiting. No bright red blood per rectum or hematemesis. Related Data Home Medications ?Medication ?Instructions ?Recorded ?Confirmed lancets 08/03/20 01/08/24 blood-glucose meter,continuous #1 ea 08/26/22 01/08/24 (Dexcom G7 [employer] Lines Account Manager) blood-glucose sensor (Dexcom G7 #1 ea 08/26/22 01/08/24 Sensor device) multivitamin (Multiple Vitamins 1 tab PO QAM #0 tabs 09/10/22 01/08/24 tablet) acetaminophen 325 mg capsule 650 mg PO Q4H PRN 11/13/22 01/08/24 lisinopril 5 mg tablet 2.5 mg PO DAILY 11/13/22 01/08/24 atorvastatin 20 mg tablet See Rx Instructions .Route 11/29/22 01/08/24 .COMPLEX #90 tabs blood sugar diagnostic (Embrace 11/29/22 01/08/24 DELLA test strips) blood sugar diagnostic (OneTouch #400 strips 12/02/22 01/08/24 Verio test strips) pen needle, diabetic 32 gauge x #360 ea 02/11/23 01/08/2432 (Unifine Pentips Plus) insulin glargine U-300 conc 300 28 unit (0.0933 mL) subcut QPM #30 07/12/23 01/08/24 unit/mL (3 mL) subcutaneous pen mL (Toujeo Max U-300 SoloStar) duloxetine 30 mg capsule,delayed See Rx Instructions .Route 08/04/23 01/08/24 release .COMPLEX #90 caps duloxetine 60 mg capsule,delayed See Rx Instructions .Route 08/04/23 01/08/24 release .COMPLEX #90 caps metoprolol succinate 25 mg See Rx Instructions .Route 08/18/23 01/08/24 tablet,extended release 24 hr .COMPLEX #270 tabs insulin aspart 1 sliding scale dose subcut 08/26/23 01/08/24 (niacinamide)(U-100) 100 unit/mL(3 USEASDIRECTD #15 mL mL) subcutaneous pen (Fiasp FlexTouch U-100 Insulin) famotidine 20 mg tablet 20 mg PO Q48H #45 tabs 01/11/24 folic acid 1 mg tablet 1 mg PO QAM 30 days #30 tabs 01/11/24 naltrexone 50 mg tablet 50 mg PO DAILY #90 tabs 01/11/24 thiamine mononitrate (vit B1) 100 100 mg PO QAM 30 days #30 tabs 01/11/24 mg tablet (Vitamin B-1 (mononitrate)) Previous Rx's ?Medication ?Instructions ?Recorded blood-glucose meter,continuous #1 ea 08/26/22 (Dexcom G7 Commercial Lines Account Manager) blood-glucose sensor (Dexcom G7 #1 ea 08/26/22 Sensor device) multivitamin (Multiple Vitamins 1 tab PO QAM #0 tabs 09/10/22 tablet) atorvastatin 20 mg tablet See Rx Instructions .Route 11/29/22 .COMPLEX #90 tabs blood sugar diagnostic (OneTouch #400 strips 12/02/22 Verio test strips) pen needle, diabetic 32 gauge x #360 ea 02/11/23 532 (Unifine Pentips Plus) insulin glargine U-300 conc 300 28 unit (0.0933 mL) subcut QPM #30 07/12/23 unit/mL (3 mL) subcutaneous pen mL (Toujeo Max U-300 SoloStar) duloxetine 30 mg capsule,delayed See Rx Instructions .Route 08/04/23 release .COMPLEX #90 caps duloxetine 60 mg capsule,delayed See Rx Instructions .Route 08/04/23 release .COMPLEX #90 caps metoprolol succinate 25 mg See Rx Instructions .Route 08/18/23 tablet,extended release 24 hr .COMPLEX #270 tabs insulin aspart 1 sliding scale dose subcut 08/26/23 (niacinamide)(U-100) 100 unit/mL(3 USEASDIRECTD #15 mL mL) subcutaneous pen (Fiasp FlexTouch U-100 Insulin) famotidine 20 mg tablet 20 mg PO Q48H #45 tabs 01/11/24 folic acid 1 mg tablet 1 mg PO QAM 30 days #30 tabs 01/11/24 naltrexone 50 mg tablet 50 mg PO DAILY #90 tabs 01/11/24 thiamine mononitrate (vit B1) 100 100 mg PO QAM 30 days #30 tabs 01/11/24 mg tablet (Vitamin B-1 (mononitrate)) Allergies Allergy/AdvReac Type Severity Reaction Status Date / Time lactose intolerant AdvReac Mild Diarrhea Uncoded 01/08/24 13:34 General Stated Complaint: ETOHWithdr GALILEO: 2 Review of Systems All systems reviewed & are unremarkable except as noted in HPI and below Constitutional Constitutional: Denies fever(s) Gastrointestinal Gastrointestinal: Reports as per HPI Exam Const General: cooperative HENND Mouth: moist mucous membranes Eyes Conjunctivae: normal conjunctivae Sclera: normal sclerae EOM: EOM intact bilaterally Neck Neck: trachea midline and supple Resp Auscultation: clear to auscultation bilaterally, no rales, no rhonchi and no wheezes Cardio Rate: tachycardic Rhythm: regular rhythm GI Palpation: soft, not firm, no guarding, no masses, not rigid and tender in the epigastrum and in the RLQ Skin General skin exam: no rashes or lesions noted Other: Diaphoresis Neuro General: patient alert, patient awake, patient oriented x3 and tone normal Cognition: normal cognition Speech: speech normal Extrem General: no edema Psych Speech and Movement: speech and movement normal Mood: anxious mood Course Vital Signs Vital signs: Vital Signs Temperature 36.2 C L 01/08/24 13:30 Pulse 142 H 01/08/24 13:30 Respiratory Rate 20 01/08/24 13:30 Blood Pressure 158/105 H 01/08/24 13:30 Temperature 36.2 C L 01/08/24 13:30 Temperature Source Temporal Artery Scan 01/08/24 13:30 Pulse 130 H 01/08/24 14:01 Pulse 133 H 01/08/24 14:01 Respiratory Rate 30 H 01/08/24 14:01 Blood Pressure 139/99 H 01/08/24 14:01 Blood Pressure Mean 111 01/08/24 14:01 Blood Pressure Position Sitting 01/08/24 13:30 Pulse Oximetry 97 01/08/24 14:01 Pain Level 7 01/08/24 13:30 Medical Decision Making 1515??63-year-old male with multiple medical problems including history of renal cell carcinoma status post nephrectomy and now in remission, chronic kidney disease, insulin-dependent diabetes, alcohol use disorder, here with acute alcohol withdrawal. CIWA greater than 20 per nursing. Patient is tachycardic and hypertensive. Plan to initiate immediate treatment of alcohol withdrawal with phenobarbital. Patient is severely tachycardic. I will give IV fluid bolus and initiate treatment with multivitamin and thiamine. Given abdominal pain and tenderness with black tarry stools, consider acute intra-abdominal surgical process and gastric ulcer versus gastritis with upper GI bleeding. I have contacted general surgery and spoke with Dr. Hay and alerted her to the situation. Plan to obtain CT of the abdomen pelvis. I will give Protonix 40 mg IV. --Patient reassessed after phenobarb and significantly improved symptoms. Labs reviewed and creatinine elevated. Concern for acute kidney injury. -- Patient reassessed and symptoms much improved. I spoke with the hospitalist - he will admit the patient. Lab Data Lab results reviewed: Yes I reviewed the patient's lab results. Labs: Laboratory Tests Range/Units 01/08/24 14:18 WBC (4.4-10.8) 10^3/uL 8.91 RBC (4.36-5.78) 10^6/uL 4.78 Hgb (13.5-17.5) g/dL 14.0 Hct (40.0-50.0) % 43.1 MCV (80-95) fL 90 MCH (27.0-33.0) pg 29.3 MCHC (32.0-36.0) % 32.5 RDW (11.8-14.1) % 13.8 Plt Count (130-400) 10^3/uL 313 MPV (8.0-11.0) fL 9.8 Immature Gran % % 1.1 Neutrophils % % 72.3 Lymphocytes % % 16.8 Monocytes % % 6.2 Eosinophils % % 3.0 Basophils % % 0.6 Nucleated RBC % (0.0-0.3) % 0.0 Absolute Neutrophils (1.2-6.7) 10^3/uL 6.44 Absolute Lymphocytes (1.2-3.4) 10^3/uL 1.50 Absolute Monocytes (0.1-0.8) 10^3/uL 0.55 Absolute Eosinophils (0.0-0.7) 10^3/uL 0.27 Absolute Basophils (0.0-0.2) 10^3/uL 0.05 Sodium (136-145) mmol/L 137 Potassium (3.5-5.1) mmol/L 4.9 Chloride (98-107) mmol/L 103 Carbon Dioxide (21.0-32.0) mmol/L 19.0 L Anion Gap (3-11) mmol/L 15.0 H BUN (7-18) mg/dL 56 H Creatinine (0.70-1.30) mg/dL 3.4 H Est GFR (CKD-EPI 2020) (mL/min/1.73m2) 19.35 Glucose (74-106) mg/dL 238 H Calcium (8.5-10.1) mg/dL 9.4 Magnesium (1.8-2.4) mg/dL 1.9 Total Bilirubin (0.2-1.0) mg/dL 0.94 AST (15-37) U/L 39 H ALT (16-63) U/L 47 Alkaline Phosphatase (46-116) U/L 98 Troponin I (<or=76) ng/L 31 Total Protein (6.4-8.2) g/dL 8.2 Albumin (3.4-5.0) g/dL 3.6 Ethyl Alcohol (<10) mg/dL < 3.0 Quality:SDOH Health Related Social Needs: No Data to Display Critical Care Time Critical Care Time Critical Care Time: Yes Total Critical Care Time: 50 Attestation: I spent greater than 50 minutes addressing this patient's immediate life threats. Please see MDM section of note. This time was spent engaged in work directly related to the patient's care, exclusive of separate procedures, and failure to initiate these interventions would have likely resulted in clinically significant or life threatening deterioration in the patient's condition. PFSH All Active Problems (Updated 01/12/24 @ 00:09 by CAMACHO VELÁSQUEZ) Diverticula of colon (Acute) Melena (Acute) Single kidney (Acute) Steatosis (Acute) Age-related nuclear cataract, bilateral (Acute ~10/03/23) [place] Type 2 diabetes mellitus with mild nonproliferative diabetic retinopathy without macular edema, bilateral (Acute ~10/03/23) [place] Misuse of prescription only drugs (Acute ~03/2023) RX Gabapentin Solitary left kidney (Acute) [facility] (initial 07/2020); s/p nephrectomy on R 2004 renal cell cancer; partial nephrectomy on L 2007 Hyperlipidemia (Acute) History of elevated PSA (Acute) Per [facility] Records--01/14/2019 6.41, 04/28/2018 6.32; +Fam hx prostate cancer in F Secondary hyperparathyroidism (Acute ~05/2021) 05/29/21 [facility] [place] CKD (chronic kidney disease) stage 4, GFR 15-29 ml/min (Acute) Diabetic peripheral neuropathy (Chronic) B12 deficiency (Acute) Alcohol use disorder (Chronic) Lamellar macular hole of both eyes (Acute 10/25/21) Type 1 diabetes, controlled, with neuropathy (Chronic ~05/2017) Adult onset, diagnosed 05/2017 [facility] [address]. Douglas--recommend GLP1 Personal goal A1C <7% Family history of prostate cancer (Chronic) F Hypertension (Chronic) RX Lisinopril (stopped due to creatinine) Medical History (Updated 01/12/24 @ 00:09 by CAMACHO VELÁSQUEZ) History of Yodit's gangrene Microcytic anemia Sinus tachycardia Fever Thrombosis superficial vein, arm, acute Gallstones Kidney lesion, [place], left Colitis due to Clostridium difficile Skin ulcer of scrotum (~2022) De Quervain's tenosynovitis, left 40 mg Depo-Medrol injection: 04/04/2022 Metabolic acidosis Alcohol intoxication (~12/02/21) Osteoarthritis of elbows, bilateral Lesion of bone of left forearm proximal radius lesion Tubular adenoma of colon 08/2018 colonoscopy [facility]; recall 5y History of alcohol use disorder since 1989 with intermittent sobriety History of opioid abuse s/p surgeries; visiting brother 08/2021 ([facility] admission) History of renal cell cancer s/p nephrectomy Chronic gingivitis, plaque induced Dentist Bilateral carpal tunnel syndrome Polyneuropathy associated with underlying disease DM Surgical History H/O skin graft [facility] 07/12/22 Scrotal Abscess 07/15/22 Skin Graft with Bolster removal H/O arthroscopy of knee Remotely--both knees at some point; he cannot recall what, but thinks meniscal History of nephrectomy, right (~03/2004) Renal cell cancer H/O partial nephrectomy (~04/2007) left Family History Mother , 54yo breast cancer Alcohol abuse Breast cancer Depression Substance abuse Father , ~70yo prostate cancer Alcohol abuse Prostate cancer Substance abuse Sister , throat caner (nicotine use) Alcohol abuse Cancer Cervical Substance abuse Social History Smoking/Tobacco Use Status: Never Smoking risk assessment performed?: Yes Alcohol Intake: current Alcohol Intake frequency: a few times a month Previous attempts at quittin Counseling given: Yes ([facility] ON LICENSE OF [facility]) Drug use: Never Substance use type: opiates Details: no IV drug use Adopted: No Caregiver/Support person: No Foster care: No Household members: other Details: [facility] Housing: house Number of Children: 4 number of grandchildren: 4 Communication Needs: None Education Level: college Do you need help understanding health information?: Rarely 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) Pets and animals: Yes Pets and animals: cat(s) Sexually active: No Do you think of yourself as: straight/heterosexual Current gender identity: male What is your relationship status?: How often do you talk on the phone with friends or family?: three or more times per week How often do you get together with friends or relatives?: three or more times per week How often do you attend methodist or quaker services?: 4 or more times per year Do you belong to any clubs or organized social groups?: no Panel score (0-1 are the most socially isolated patients): 2 What type of physical activity do you participate in: walking, bicycling and other Details: EXERCISE ON STATIONARY BIKE Duration: < 15 minutes/day Frequency: 3-4 times per week Erin/Oriental Orthodox: Yarsani Agree to transfusion: No Seatbelt use: always Helmet use: Yes Drive intox or ride w/intox stunt driver: No Water heater temp set <120 deg: Yes Working smoke detector in home: Yes Fire extinguisher in home: Yes Do you feel safe at home: Yes Do you feel safe in your relationship?: Yes
[2024-01-08 14:27] LABS: Absolute Basophil Count 0.05 10^3/uL (0.0-0.2); Absolute Eosinophil Count 0.27 10^3/uL (0.0-0.7); Absolute Monocyte Count 0.55 10^3/uL (0.1-0.8); Absolute Neutrophil Count 6.44 10^3/uL (1.2-6.7); Basophils % 0.6 %; HCT 43.1 % (40.0-50.0); Immature Grans % 1.1 %; Lymphocytes % 16.8 %; MCH 29.3 pg (27.0-33.0); MCHC 32.5 % (32.0-36.0); MCV 90 fL (80-95); MPV 9.8 fL (8.0-11.0); Monocytes % 6.2 %; Neutrophils % 72.3 %; Platelet Count 313 10^3/uL (130-400); RBC 4.78 10^6/uL (4.36-5.78); RDW 13.8 % (11.8-14.1); RDW-SD 45.5 fL; WBC 8.91 10^3/uL (4.4-10.8)
[2024-01-08 14:45] LABS: Troponin I 31 ng/L (<or=76)
[2024-01-08 14:47] LABS: ALT 47 U/L (16-63); AST 39 U/L (15-37); Albumin 3.6 g/dL (3.4-5.0); Alkaline Phosphatase 98 U/L (46-116); BUN 56 mg/dL (7-18); Bilirubin, Total 0.94 mg/dL (0.2-1.0); CREATININE 3.4 mg/dL (0.70-1.30); Calcium 9.4 mg/dL (8.5-10.1); Chloride 103 mmol/L (98-107); ETHANOL BLOOD < 3.0 mg/dL (<10); Estimated GFR 19.35 (mL/min/1.73m2); Glucose 238 mg/dL (74-106); Magnesium 1.9 mg/dL (1.8-2.4); Potassium 4.9 mmol/L (3.5-5.1); Sodium 137 mmol/L (136-145); Total Protein 8.2 g/dL (6.4-8.2)
--- NOTE | 2024-01-08 15:00 | DI.CT_ITS ---
Exam(s) CT ABDOMEN PELVIS WO EXAM: CT ABDOMEN PELVIS WO CLINICAL HISTORY: abd pain, ttp epigastric ans rt lower, black tarry. TECHNIQUE: Imaging Protocol: Axial computed tomography images with coronal and sagittal reformatted images were created and reviewed. Oral: no COMPARISON: CT CT ABDOMEN PELVIS W from 09/13/[address] CHEST PE CTA from 09/13/2022 FINDINGS: Lung Bases: No acute findings. Liver: Enlarged. Mild fatty infiltration no suspicious mass. Gallbladder and biliary tract: Cholelithiasis. No biliary dilatation. No gallbladder wall thicken ing or abnormal distension. Pancreas: Normal density. No abnormal calcifications or inflammatory process. Spleen: Normal. Kidneys: Left kidney normal size, contour and axis. Status post right nephrectomy. No radiodense st ones. No obstructive uropathy. No suspicious masses seen. Adrenal glands: Status post right adrenalectomy. No masses seen. Lymph nodes: Within normal limits. Vasculature: Abdominal aorta non-dilated. Soft tissues: Unremarkable. Bladder: Mild diffuse wall thickening. No mass or calculi. Bowel: No obstruction or bowel wall thickening. Minimal diverticulosis. No evidence of diverticuli tis. Normal quantity of stool. Appendix normal. Peritoneal cavity: No ascites. No focal collection. No mesenteric inflammatory response. Reproductive organs: Enlarged Bones: Unremarkable for age. IMPRESSION: No acute abnormality in the abdomen or pelvis. Cholelithiasis is again noted. Enlarged prostate and mild diffuse bladder wall thickening, similar to prior. RADIATION DOSE DELIVERED: Total DLP DATA REPOSITORY: All CT scans at this facility are submitted to the National Radiology Data Registry (NRDR) Dose Index Registry (DIR) with the [employer] (ACR). RADIATION OPTIMIZATION: All CT scans at this facility use at least one of these dose optimization te chniques: automated exposure control; mA and/or kV adjustment per patient size (includes targeted exa ms where dose is matched to clinical indication); or iterative reconstruction.
[2024-01-08] MEDS: MULTIVITAMIN 10 ML, THIAMINE 100 MG, FOLIC ACID 1 MG in DEXTROSE 5%-0.45% SALINE 1,000 ML 42 ML IV (15:45)
--- NOTE | 2024-01-08 15:45 | HPE_ITS ---
Date of service: 01/08/24 Time of Service: 15:45 Assessment and Plan Assessment and plan (1) Alcohol withdrawal: Status: Acute Assessment and plan: - Patient has history of significant alcohol use disorder and alcohol withdrawal with seizure -Received first loading dose of IV phenobarb in the emergency department significant improvement of CIWA which was initially 20 -Given patient's improvement and is determined he is appropriate for the floor where he will receive remainder of his loading doses -Continue to monitor CIWA and give as needed IV phenobarb as per protocol (2) Acute kidney injury superimposed on CKD: Status: Acute Assessment and plan: - Creatinine 3.4, baseline as of 1 year ago was 1.7 -This is also in the setting of IDDM and patient having solitary left kidney status post renal cell carcinoma -Patient received fluids in the emergency department, will follow-up a.m. BMP (3) Solitary left kidney: Status: Acute Assessment and plan: Secondary to renal cell carcinomastatus post nephrectomy and 2020 (4) Type 2 diabetes mellitus with mild nonproliferative diabetic retinopathy without macular edema, bilateral: Status: Acute Assessment and plan: - Continue scheduled insulin -Additional sliding scale insulin and heart healthy carb consistent diet (5) Hyperlipidemia: Status: Acute Assessment and plan: -Continue home statin Qualifiers: Hyperlipidemia type: mixed hyperlipidemia Qualified Code(s): E78.2 - Mixed hyperlipidemia History of Present Illness History of Present Illness Chief Complaint: Alcohol withdrawal Narrative: 63-year-old male with a past medical history of renal cell carcinoma status post nephrectomy, IDDM, hypertension, alcohol use disorder presented the emergency department in acute alcohol withdrawal. Patient states that he has been drinking about a half a gallon of hard liquor daily over the last month and that his last drink was about 6 to 8 hours prior to arrival to the emergency department. However, 4 hours prior to arrival to the emergency department patient stated that he began to feel shaky and anxious and this is gotten progressively worse which prompted him to come to the ED. He also has a history of alcohol withdrawal and seizures. He denies any headache, lightheadedness, dizziness, chest pain, nausea vomiting or diarrhea but he did state that he had a dark tarry stool earlier in the day. In the emergency department the patient was noted as being tremulous and anxious consistent with alcohol withdrawal with an elevated CIWA score of 20. Patient was tachycardic with heart rate greater then 120, mildly hypertensive with a blood pressure of 162/101, but was afebrile, tachypneic with respiratory rate in the high 20s, was saturating well on room air. CBC was unremarkable, CMP showed ALEJANDRO on CKD with creatinine of 3.4 (baseline 1.7 about 1 year ago). General surgery was made aware of patient's dark tarry stool said he was likely gastritis and CT abdomen pelvis without contrast pending at this time. Patient also received first dose of IV phenobarb loading dose and is already experiencing difficult improvement of his symptoms. At which time emergency room physician paged hospitalist for admission for patient with alcohol withdrawal requiring IV phenobarb and monitoring as well as potential lower GI bleed and ALEJANDRO on CKD. Review of Systems All systems reviewed & are unremarkable except as noted in HPI and below PFSH All Active Problems (Updated 01/08/24 @ 15:52 by Chaparro Brown MD) Acute kidney injury superimposed on CKD (Acute) Hyperglycemia (Acute) ALEJANDRO (acute kidney injury) (Acute) Alcohol withdrawal (Acute) Age-related nuclear cataract, bilateral (Acute ~10/03/23) [place] Type 2 diabetes mellitus with mild nonproliferative diabetic retinopathy without macular edema, bilateral (Acute ~10/03/23) [place] Misuse of prescription only drugs (Acute ~03/2023) RX Gabapentin Solitary left kidney (Acute) [facility] [place] s/p nephrectomy on R 2004 renal cell cancer; partial nephrectomy on L 2007 Hyperlipidemia (Acute) History of elevated PSA (Acute) Per [place] Records--01/14/2019 6.41, 04/28/2018 6.32; +Fam hx prostate cancer in F Secondary hyperparathyroidism (Acute ~05/2021) [place] [facility] [place] CKD (chronic kidney disease) stage 4, GFR 15-29 ml/min (Acute) Diabetic peripheral neuropathy (Chronic) B12 deficiency (Acute) Alcohol use disorder (Chronic) Lamellar macular hole of both eyes (Acute 10/25/21) Type 1 diabetes, controlled, with neuropathy (Chronic ~05/2017) Adult onset, diagnosed 05/[address] [facility] [address] Douglas--recommend GLP1 Personal goal A1C <7% Family history of prostate cancer (Chronic) F Hypertension (Chronic) RX Lisinopril (stopped due to creatinine) Medical History Microcytic anemia Sinus tachycardia Fever Thrombosis superficial vein, arm, acute Gallstones Kidney lesion, [place], left Colitis due to Clostridium difficile Skin ulcer of scrotum (~2022) De Quervain's tenosynovitis, left 40 mg Depo-Medrol injection: 04/04/2022 Metabolic acidosis Alcohol intoxication (~12/02/21) Osteoarthritis of elbows, bilateral Lesion of bone of left forearm proximal radius lesion Tubular adenoma of colon 08/2018 colonoscopy [facility]; recall 5y History of alcohol use disorder since 1989 with intermittent sobriety History of opioid abuse s/p surgeries; visiting brother 08/2021 ([facility] admission) History of renal cell cancer s/p nephrectomy Chronic gingivitis, plaque induced 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 Bilateral carpal tunnel syndrome Polyneuropathy associated with underlying disease DM Surgical History H/[place] [facility] [place] Scrotal Abscess 07/15/22 Skin Graft with Bolster removal H/O arthroscopy of knee Remotely--both knees at some point; he cannot recall what, but thinks meniscal History of nephrectomy, right (~03/2004) Renal cell cancer H/O partial nephrectomy (~04/2007) left Family History Mother , 54yo breast cancer Alcohol abuse Breast cancer Depression Substance abuse Father , ~70yo prostate cancer Alcohol abuse Prostate cancer Substance abuse Sister , throat caner (nicotine use) Alcohol abuse Cancer Cervical Substance abuse Social History Smoking/Tobacco Use Status: Never Smoking risk assessment performed?: Yes Alcohol Intake: current Alcohol Intake frequency: a few times a month Previous attempts at quittin Counseling given: Yes ([facility]) Drug use: Never Substance use type: opiates Details: no IV drug use Adopted: No Caregiver/Support person: No Foster care: No Household members: other Details: Sober Living Facility Housing: house Number of Children: 4 number of grandchildren: 4 Communication Needs: None Education Level: college Do you need help understanding health information?: Rarely 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) Pets and animals: Yes Pets and animals: cat(s) Sexually active: No Do you think of yourself as: straight/heterosexual Current gender identity: male What is your relationship status?: How often do you talk on the phone with friends or family?: three or more times per week How often do you get together with friends or relatives?: three or more times per week How often do you attend denominational or catholic services?: 4 or more times per year Do you belong to any clubs or organized social groups?: no Panel score (0-1 are the most socially isolated patients): 2 What type of physical activity do you participate in: walking, bicycling and other Details: EXERCISE ON STATIONARY BIKE Duration: < 15 minutes/day Frequency: 3-4 times per week Erin/Tenriism: Jew Agree to transfusion: No Seatbelt use: always Helmet use: Yes Drive intox or ride w/intox spike driver: No Water heater temp set <120 deg: Yes Working smoke detector in home: Yes Fire extinguisher in home: Yes Do you feel safe at home: Yes Do you feel safe in your relationship?: Yes Meds Allergies and Home Medications Allergies Allergy/AdvReac Type Severity Reaction Status Date / Time lactose intolerant AdvReac Mild Diarrhea Uncoded 01/08/24 13:34 Home Medications ?Medication ?Instructions ?Recorded ?Confirmed ?Type lancets 08/03/20 01/08/24 History blood-glucose meter,continuous #1 ea 08/26/22 01/08/24 Rx (Dexcom G7 Fulfillment Mail Clerk) blood-glucose sensor (Dexcom G7 #1 ea 08/26/22 01/08/24 Rx Sensor device) multivitamin (Multiple Vitamins 1 tab PO QAM #0 tabs 09/10/22 01/08/24 Rx tablet) acetaminophen 325 mg capsule 650 mg PO Q4H PRN 11/13/22 01/08/24 History lisinopril 5 mg tablet 2.5 mg PO DAILY 11/13/22 01/08/24 History sodium bicarbonate 650 mg tablet 650 mg PO TID 11/13/22 01/08/24 History atorvastatin 20 mg tablet See Rx Instructions .Route 11/29/22 01/08/24 Rx .COMPLEX #90 tabs blood sugar diagnostic (Embrace 11/29/22 01/08/24 History DELLA test strips) blood sugar diagnostic (OneTouch #400 strips 12/02/22 01/08/24 Rx Verio test strips) pen needle, diabetic 32 gauge x #360 ea 02/11/23 01/08/24 Rx (Unifine Pentips Plus) naltrexone 50 mg tablet 50 mg PO DAILY #90 tabs 02/27/23 01/08/24 Rx insulin glargine U-300 conc 300 28 unit (0.0933 mL) subcut QPM #30 07/12/23 01/08/24 Rx unit/mL (3 mL) subcutaneous pen mL (Toujeo Max U-300 SoloStar) duloxetine 30 mg capsule,delayed See Rx Instructions .Route 08/04/23 01/08/24 Rx release .COMPLEX #90 caps duloxetine 60 mg capsule,delayed See Rx Instructions .Route 08/04/23 01/08/24 Rx release .COMPLEX #90 caps metoprolol succinate 25 mg See Rx Instructions .Route 08/18/23 01/08/24 Rx tablet,extended release 24 hr .COMPLEX #270 tabs insulin aspart 1 sliding scale dose subcut 08/26/23 01/08/24 Rx (niacinamide)(U-100) 100 unit/mL(3 USEASDIRECTD #15 mL mL) subcutaneous pen (Fiasp FlexTouch U-100 Insulin) Exam Narrative Exam Narrative: Well-appearing gentleman laying in bed in no acute distress, ANO x 4, heart regular rhythm, lungs, auscultation bilaterally, abdomen soft, nontender, nondistended Results Labs 01/08/24 14:18 01/08/24 14:18 Labs: Laboratory Results - last 24 hr 01/08/24 14:18 WBC 8.91 RBC 4.78 Hgb 14.0 Hct 43.1 MCV 90 MCH 29.3 MCHC 32.5 RDW 13.8 Plt Count 313 MPV 9.8 Immature Gran % 1.1 Neutrophils % 72.3 Lymphocytes % 16.8 Monocytes % 6.2 Eosinophils % 3.0 Basophils % 0.6 Nucleated RBC % 0.0 Absolute Neutrophils 6.44 Absolute Lymphocytes 1.50 Absolute Monocytes 0.55 Absolute Eosinophils 0.27 Absolute Basophils 0.05 Sodium 137 Potassium 4.9 Chloride 103 Carbon Dioxide 19.0 L Anion Gap 15.0 H BUN 56 H Creatinine 3.4 H Est GFR (CKD-EPI 2020) 19.35 Glucose 238 H Calcium 9.4 Magnesium 1.9 Total Bilirubin 0.94 AST 39 H ALT 47 Alkaline Phosphatase 98 Troponin I 31 Total Protein 8.2 Albumin 3.6 Ethyl Alcohol < 3.0 Last Vital Signs Temp 97.2 F L 01/08/24 13:30 Pulse 123 H 01/08/24 14:56 Resp 29 H 01/08/24 14:56 BP 162/101 H 01/08/24 14:56 Pulse Ox 93 01/08/24 14:56 PAWSS Have you Been Recently Intoxicated or Drunk Within the Last 30 days?: Yes Have you Ever Experienced Previous Episodes of Alcohol Withdrawal?: Yes Have you ever Experienced Withdrawal Seizures?: Yes Have you ever Experienced Delirium Tremens(DT)s?: Yes Have you ever undergone Alcohol Rehabilitation Treatment (i.e, inpt ot outpatient treatment programs)?: Yes Have you ever Experienced Blackouts?: Yes Have you ever Combined Alcohol with other Downers within the last 90 days?: No Have you ever Combined Alcohol with any other Substance of Abuse during the last 90 days?: No Positive Blood Alcohol level on Presentation? [PCS.BAL]: Yes Evidence of Increased Autonomic Activity (i.e. HR>120, tremor, sweating, agitation, nausea)?: Yes Result: 8 Time Spent Time spent with Patient: >75 minutes Time was spent: preparing to see the patient(eg.review tests), obtaining and/or reviewing separately otained hiistory, ordering medications,tests, procedures, referring, communicating with other health manager medicare, indepentently interpreting results, counseling the patient and care coordination
[2024-01-08 16:12] LABS: Troponin I 33 ng/L (<or=76)
[2024-01-08 16:32] LABS: Prothrombin Time 10.4 sec (9.1-11.1)
--- NOTE | 2024-01-08 16:42 | W.PC.ACHO ---
Registration Status: Primary Language: Preferred Language: ED Information & Data Chief Complaint ETOHWithdr 01/08/24 15:25 Triage Note patient going through ETOH 01/08/24 13:30 withdrawals and would like detox. 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 seizure's in the past with previous detox. pt reports CP and abd pain Medical / Surgical History (Last Reviewed 01/08/24 @ 15:14 by Skinny Cage MD) Microcytic anemia Sinus tachycardia Fever Thrombosis superficial vein, arm, acute Gallstones Kidney lesion, [place], left Colitis due to Clostridium difficile Skin ulcer of scrotum (~2022) De Quervain's tenosynovitis, left Metabolic acidosis Alcohol intoxication (~12/02/21) Osteoarthritis of elbows, bilateral Lesion of bone of left forearm Tubular adenoma of colon History of alcohol use disorder History of opioid abuse History of renal cell cancer Chronic gingivitis, plaque induced Bilateral carpal tunnel syndrome Polyneuropathy associated with underlying disease (Last Reviewed 01/08/24 @ 15:14 by Skinny Cage MD) H/O skin graft H/O arthroscopy of knee History of nephrectomy, right (~03/2004) H/O partial nephrectomy (~04/2007) Most Recent Vital Signs Temperature 36.2 C L 01/08/24 13:30 Temperature Source Temporal Artery Scan 01/08/24 13:30 Pulse 116 H 01/08/24 16:01 Pulse 115 H 01/08/24 16:01 Respiratory Rate 19 01/08/24 16:01 Respiratory Effort Normal, Non-Labored 01/08/24 14:11 Respiratory Pattern Normal 01/08/24 14:07 Blood Pressure 128/75 01/08/24 16:01 Blood Pressure Mean 91 01/08/24 16:01 Blood Pressure Position Sitting 01/08/24 13:30 Pulse Oximetry 94 01/08/24 16:01 Pain Level 7 01/08/24 13:30 Allergies lactose intolerant Adverse Reaction (Mild, Uncoded 01/08/24 13:34) Diarrhea Precautions Isolation Seizure precaution 01/08/24 14:11 Active Medications Generic Name Dose Route Start Last Admin Trade Name Freq PRN Reason Stop Dose Admin Multivitamins 10 ml/ Thiamine 1,011.2 mls @ 42 mls/hr 01/08/24 14:30 01/08/24 15:45 HCl 100 mg/ Folic Acid 1 mg/ IV 42 mls/hr Dextrose/Sodium Chloride DAILY BONG Administration IV IV Catheter Type [Left Peripheral IV Antecubital] IV Catheter Type [Right Peripheral IV Antecubital] IV Catheter Gauge [Left 20 Antecubital] IV Catheter Gauge [Right 18 Antecubital] Diet Orders Category Date Time Status DIET [Diabetes Consistent CHO/Heart Healthy] [DIET] Nutrition 01/08/24 Dinner Active Diagnostics 01/08/24 01/08/24 01/08/24 Range/Units 16:14 15:45 14:18 WBC 8.91 (4.4-10.8) 10^3/uL RBC 4.78 (4.36-5.78) 10^6/uL Hgb 14.0 (13.5-17.5) g/dL Hct 43.1 (40.0-50.0) % MCV 90 (80-95) fL MCH 29.3 (27.0-33.0) pg MCHC 32.5 (32.0-36.0) % RDW 13.8 (11.8-14.1) % Plt Count 313 (130-400) 10^3/uL MPV 9.8 (8.0-11.0) fL Immature Gran % 1.1 % Neutrophils % 72.3 % Lymphocytes % 16.8 % Monocytes % 6.2 % Eosinophils % 3.0 % Basophils % 0.6 % Nucleated RBC % 0.0 (0.0-0.3) % Absolute Neutrophils 6.44 (1.2-6.7) 10^3/uL Absolute Lymphocytes 1.50 (1.2-3.4) 10^3/uL Absolute Monocytes 0.55 (0.1-0.8) 10^3/uL Absolute Eosinophils 0.27 (0.0-0.7) 10^3/uL Absolute Basophils 0.05 (0.0-0.2) 10^3/uL PT 10.4 (9.1-11.1) sec INR 1.0 (0.9-1.1) Sodium 137 (136-145) mmol/L Potassium 4.9 (3.5-5.1) mmol/L Chloride 103 (98-107) mmol/L Carbon Dioxide 19.0 L (21.0-32.0) mmol/L Anion Gap 15.0 H (3-11) mmol/L BUN 56 H (7-18) mg/dL Creatinine 3.4 H (0.70-1.30) mg/dL Est GFR (CKD-EPI 2020) 19.35 (mL/min/1.73m2) Glucose 238 H (74-106) mg/dL Calcium 9.4 (8.5-10.1) mg/dL Magnesium 1.9 (1.8-2.4) mg/dL Total Bilirubin 0.94 (0.2-1.0) mg/dL AST 39 H (15-37) U/L ALT 47 (16-63) U/L Alkaline Phosphatase 98 (46-116) U/L Troponin I 33 31 (<or=76) ng/L Total Protein 8.2 (6.4-8.2) g/dL Albumin 3.6 (3.4-5.0) g/dL Procalcitonin Pending Ethyl Alcohol < 3.0 (<10) mg/dL Add-On Test Request Pending Intake and Output - 24 Hour Total 01/08/24 13:28 thru 01/08/24 16:11 Intake Total 53.3846 Balance 53.3846 Weight 113.398 kg Intake: IV 53.3846 Falls Risk Assessment History of Falls No History 01/08/24 14:11 Contributing Factors No Factors 01/08/24 14:11 Ambulatory Aids Uses ambulatory device 01/08/24 14:11 Tubes/Lines None 01/08/24 14:11 Gait Evaluation No gait disturbance 01/08/24 14:11 Cognition No cognitive impairment 01/08/24 14:11 Fall Total Score 15 01/08/24 14:11 Level of Risk Standard/Low Risk 01/08/24 14:11 Problems (Last Reviewed 01/08/24 @ 15:14 by Skinny Cage MD) Acute kidney injury superimposed on CKD (Acute) Hyperglycemia (Acute) ALEJANDRO (acute kidney injury) (Acute) Alcohol withdrawal (Acute) Type 2 diabetes mellitus with mild nonproliferative diabetic retinopathy without macular edema, bilateral (Acute ~10/03/23) Solitary left kidney (Acute) Hyperlipidemia (Acute) Alcohol use disorder (Chronic) v v v v v v v v v Sending and/or Receiving Nurses: Please use comment section below to note any information pertinent to the patient hand-off not included above. Information / Comments: pt arrives to unit via WC to room 208 Report received from: Ryne Hawk RN @ [id number]
[2024-01-08 16:54] LABS: Procalcitonin 0.24 ng/mL
[2024-01-08] MEDS: Normal Saline Flush 10 ML SYR IVP (17:09)
[2024-01-08] MEDS: PHENobarbital 130 MG/ML VIAL IVP ×2 (17:09→21:35)
[2024-01-08] MEDS: Pantoprazole 40 MG VIAL IVP (17:10)
[2024-01-08 18:12] LABS: Lab Add On Test DONE
[2024-01-08 18:50] LABS: C-Reactive Protein 0.53 mg/dL (<or=0.5); Ferritin 421 ng/mL (26-388); Folate > 20.0 ng/mL (8.6-20.0); Vitamin B12 756 pg/mL (193-986)
[2024-01-08 18:56] LABS: GGT 49 U/L (15-85)
--- NOTE | 2024-01-08 19:15 | SCONE_ITS ---
Date of service: 01/08/24 Time of Service: 17:30 Assessment and Plan Assessment and plan (1) Melena: Status: Acute Assessment and plan: Currently he hemoglobin and INR are normal. H2 lidia for GI protection. Dose adjusted for renal function Currently no signs of GI bleeding Once he is through the DTs and is medically stable, he should probably have an EGD for varices surveillance Hemoccult stools for 24 hours We will continue to follow 35 mins spent in direct pt care and 25 in non face to face time (2) Diverticula of colon: Status: Acute (3) Type 2 diabetes mellitus with mild nonproliferative diabetic retinopathy without macular edema, bilateral: Status: Acute (4) Hyperlipidemia: Status: Acute Qualifiers: Hyperlipidemia type: mixed hyperlipidemia Qualified Code(s): E78.2 - Mixed hyperlipidemia (5) Hypertension: Status: Chronic Qualifiers: Hypertension type: primary hypertension Qualified Code(s): I10 - Essential (primary) hypertension (6) Alcohol withdrawal: Status: Acute (7) Alcohol use disorder: Status: Chronic (8) ALEJANDRO (acute kidney injury): Status: Acute (9) CKD (chronic kidney disease) stage 4, GFR 15-29 ml/min: Status: Acute (10) Solitary left kidney: Status: Acute (11) History of elevated PSA: Status: Acute (12) Diabetic peripheral neuropathy: Status: Chronic (13) Gallstones: (14) History of renal cell cancer: (15) History of Yodit's gangrene: History of Present Illness Narrative: Patient is a 63-year-old male with a longstanding history of alcohol abuse. He has been drinking at least half a liter of vodka a day for quite for several months. He decided he wanted to quit drinking drinking and was trying to detox at home. Last time he had any alcohol was at 6 AM today. He has had a history of withdrawals/DTs/seizures in the past. He is tremulous been A and O x 3 Patient notes he has been having lower quadrant abdominal pain. Today a few days ago he had upper abdominal pain. He has not been eating much. He notes he has been constipated and straining to move his bowels. He did pass some melanotic stool earlier today. He is mildly tender in the lower quadrants but there is no rebound or guarding. Bowel sounds are diminished but present. There is no ascites in the abdomen. He has never had an EGD before. To the best of his knowledge she has never had an ulcer or any stomach problems. He denies a history of reflux or abdominal pain and the longstanding nature. He has never had a GI bleed in the past before. He has been told he has mild cirrhosis in the past. He has never been told he has esophageal varices. He does have a longstanding history of alcohol abuse. he has had a colonoscopy and has a known history of diverticula. He has had diverticulitis in the past. He was in [facility] for a month last year with Yodit's gangrene and had reconstruction with gracilis flap from the left thigh. He has not had any problems with anesthesia. He has had multiple orthopedic surgeries in the past. He has had a left nephrectomy and right adrenalectomy for kidney cancer. He does not smoke. He still uses ibuprofen for muscle aches or pains. We discussed the importance of avoiding aspirin and NSAIDs Review of Systems All systems reviewed & are unremarkable except as noted in HPI and below PFSH All Active Problems (Updated 01/08/24 @ 19:31 by Edelmira Hay, ) Diverticula of colon (Acute) Melena (Acute) Single kidney (Acute) Steatosis (Acute) Acute kidney injury superimposed on CKD (Acute) Hyperglycemia (Acute) ALEJANDRO (acute kidney injury) (Acute) Alcohol withdrawal (Acute) Age-related nuclear cataract, bilateral (Acute ~10/03/23) [place] Type 2 diabetes mellitus with mild nonproliferative diabetic retinopathy without macular edema, bilateral (Acute ~10/03/23) [place] Misuse of prescription only drugs (Acute ~03/2023) RX Gabapentin Solitary left kidney (Acute) [facility] [place]ro (initial 07/2020); s/p nephrectomy on R 2004 renal cell cancer; partial nephrectomy on L 2007 Hyperlipidemia (Acute) History of elevated PSA (Acute) Per [facility] Records--01/14/2019 6.41, 04/28/2018 6.32; +Fam hx prostate cancer in F Secondary hyperparathyroidism (Acute ~05/2021) 05/29/21 [facility] [place]ph[place] CKD (chronic kidney disease) stage 4, GFR 15-29 ml/min (Acute) Diabetic peripheral neuropathy (Chronic) B12 deficiency (Acute) Alcohol use disorder (Chronic) Lamellar macular hole of both eyes (Acute 10/25/21) Type 1 diabetes, controlled, with neuropathy (Chronic ~05/2017) Adult onset, diagnosed 05/[address] [facility] [address]. Douglas--recommend GLP1 Personal goal A1C <7% Family history of prostate cancer (Chronic) F Hypertension (Chronic) RX Lisinopril (stopped due to creatinine) Medical History (Updated 01/08/24 @ 19:31 by Edelmira Hay DO) History of Yodit's gangrene Microcytic anemia Sinus tachycardia Fever Thrombosis superficial vein, arm, acute Gallstones Kidney lesion, [place], left Colitis due to Clostridium difficile Skin ulcer of scrotum (~2022) De Quervain's tenosynovitis, left 40 mg Depo-Medrol injection: 04/04/2022 Metabolic acidosis Alcohol intoxication (~12/02/21) Osteoarthritis of elbows, bilateral Lesion of bone of left forearm proximal radius lesion Tubular adenoma of colon 08/2018 colonoscopy [facility] GI; recall 5y History of alcohol use disorder since 1989 with intermittent sobriety History of opioid abuse s/p surgeries; visiting brother 08/2021 ([facility] admission) History of renal cell cancer s/p nephrectomy Chronic gingivitis, plaque induced Dentist Bilateral carpal tunnel syndrome Polyneuropathy associated with underlying disease DM Surgical History H/O skin graft [facility] 07/12/22 Scrotal Abscess 07/15/22 Skin Graft with Bolster removal H/O arthroscopy of knee Remotely--both knees at some point; he cannot recall what, but thinks meniscal History of nephrectomy, right (~03/2004) Renal cell cancer H/O partial nephrectomy (~04/2007) left Family History Mother , 54yo breast cancer Alcohol abuse Breast cancer Depression Substance abuse Father , ~70yo prostate cancer Alcohol abuse Prostate cancer Substance abuse Sister , throat caner (nicotine use) Alcohol abuse Cancer Cervical Substance abuse Social History Smoking/Tobacco Use Status: Never Smoking risk assessment performed?: Yes Alcohol Intake: current Alcohol Intake frequency: a few times a month Previous attempts at quittin Counseling given: Yes ([facility]) Drug use: Never Substance use type: opiates Details: no IV drug use Adopted: No Caregiver/Support person: No Foster care: No Household members: other Details: Sober Living Facility Housing: house Number of Children: 4 number of grandchildren: 4 Communication Needs: None Education Level: college Do you need help understanding health information?: Rarely 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) Pets and animals: Yes Pets and animals: cat(s) Sexually active: No Do you think of yourself as: straight/heterosexual Current gender identity: male What is your relationship status?: How often do you talk on the phone with friends or family?: three or more times per week How often do you get together with friends or relatives?: three or more times per week How often do you attend yarsani or gnosticist services?: 4 or more times per year Do you belong to any clubs or organized social groups?: no Panel score (0-1 are the most socially isolated patients): 2 What type of physical activity do you participate in: walking, bicycling and other Details: EXERCISE ON STATIONARY BIKE Duration: < 15 minutes/day Frequency: 3-4 times per week Erin/Samaritan: Latter-Day Agree to transfusion: No Seatbelt use: always Helmet use: Yes Drive intox or ride w/intox bulk delivery driver: No Water heater temp set <120 deg: Yes Working smoke detector in home: Yes Fire extinguisher in home: Yes Do you feel safe at home: Yes Do you feel safe in your relationship?: Yes Exam Narrative Exam Narrative: PHYSICAL EXAM GENERAL APPEARANCE: Alert, healthy appearance, oriented, x 3,? in mild distress. tremulous HYDRATION: Well hydrated HEAD, EYES, EARS, NECK, THROAT: Head is normocephalic, pupils equal, round, reactive to light and accommodation, ocular movement intact, sclera clear and no jaundice. ?Dentition intact. LUNGS: normal respiration/normal chest excursion. ?Clear to auscultation bilaterally. ?No wheeze. ?HEART: Regular rate and rhythm. no murmurs? ABDOMEN: soft and non-tender to palpation.? Normal bowel sounds.? No hernias.? no acites Results Last Vital Signs Temp 36.7 C 01/08/24 17:30 Pulse 116 H 01/08/24 17:30 Resp 18 11/07/24 17:30 BP 142/97 H 01/08/24 17:30 Pulse Ox 100 01/08/24 17:30 Labs 01/08/24 14:18 01/08/24 14:18 Labs: Laboratory Results - last 24 hr 01/08/24 01/08/24 14:18 15:45 WBC 8.91 RBC 4.78 Hgb 14.0 Hct 43.1 MCV 90 MCH 29.3 MCHC 32.5 RDW 13.8 Plt Count 313 MPV 9.8 Immature Gran % 1.1 Neutrophils % 72.3 Lymphocytes % 16.8 Monocytes % 6.2 Eosinophils % 3.0 Basophils % 0.6 Nucleated RBC % 0.0 Absolute Neutrophils 6.44 Absolute Lymphocytes 1.50 Absolute Monocytes 0.55 Absolute Eosinophils 0.27 Absolute Basophils 0.05 PT 10.4 INR 1.0 Sodium 137 Potassium 4.9 Chloride 103 Carbon Dioxide 19.0 L Anion Gap 15.0 H BUN 56 H Creatinine 3.4 H Est GFR (CKD-EPI 2020) 19.35 Glucose 238 H Calcium 9.4 Magnesium 1.9 Ferritin 421 H Total Bilirubin 0.94 GGT 49 AST 39 H ALT 47 Alkaline Phosphatase 98 Troponin I 31 33 C-Reactive Protein 0.53 H Total Protein 8.2 Albumin 3.6 Vitamin B12 756 Folate > 20.0 H Procalcitonin 0.24 Ethyl Alcohol < 3.0 Add-On Test Request DONE
[2024-01-08] MEDS: DULoxetine 30 MG CAP 90 MG PO (21:13)
[2024-01-08] MEDS: Metoprolol CR 25 MG TABCR 75 MG PO (21:13)
[2024-01-08] MEDS: Atorvastatin 20 MG TAB PO (21:13)
[2024-01-08] MEDS: Famotidine 20 MG/2 ML VIAL IVP (21:13)
[2024-01-08] MEDS: Insulin Glargine 300 UNITS/3 ML PEN 22 UNITS SC (21:14)
[2024-01-09] VITALS (9 sets, daily range): BP systolic 101–121; BP diastolic 65–85; PULSE 68–94; RESP 16–20; TEMP 36.1–36.8; O2SAT 92–97
[2024-01-09] MEDS: PHENobarbital 130 MG/ML VIAL IVP ×2 (02:42→06:29)
[2024-01-09 02:43] LABS: *AMPHETAMINES SCREEN URINE Negative (Negative); *BARBITURATES SCREEN URINE Positive (Negative); *BENZODIAZEPINES SCREEN URINE Negative (Negative); Cannabinoids THC Positive (Negative); Cocaine Screen,Urine Negative (Negative); METHADONE URINE SCREEN Negative (Negative); OPIATES URINE SCREEN Negative (Negative); Tricyclic Antidepressants Negative (Negative)
[2024-01-09 06:10] LABS: HCT 37.9 % (40.0-50.0); HGB 12.4 g/dL (13.5-17.5); MCH 29.6 pg (27.0-33.0); MCHC 32.7 % (32.0-36.0); MCV 91 fL (80-95); MPV 10.1 fL (8.0-11.0); Platelet Count 252 10^3/uL (130-400); RBC 4.19 10^6/uL (4.36-5.78); RDW 13.7 % (11.8-14.1); RDW-SD 45.2 fL; WBC 9.95 10^3/uL (4.4-10.8)
[2024-01-09 06:21] LABS: Prothrombin Time 10.4 sec (9.1-11.1)
[2024-01-09 06:25] LABS: Anion Gap 12.6 mmol/L (3-11); BUN 58 mg/dL (7-18); CO2 20.4 mmol/L (21.0-32.0); CREATININE 3.4 mg/dL (0.70-1.30); Calcium 8.9 mg/dL (8.5-10.1); Chloride 104 mmol/L (98-107); Estimated GFR 19.35 (mL/min/1.73m2); Glucose 238 mg/dL (74-106); Potassium 4.6 mmol/L (3.5-5.1); Sodium 137 mmol/L (136-145)
[2024-01-09] MEDS: Acetaminophen 325 MG TAB PO (06:29)
[2024-01-09] MEDS: Folic Acid 1 MG TAB PO (07:48)
[2024-01-09] MEDS: Lisinopril 5 MG TAB 2.5 MG PO (07:48)
[2024-01-09] MEDS: Naltrexone 50 MG TAB PO (07:48)
[2024-01-09] MEDS: Multivitamin TAB 1 TAB PO (07:48)
[2024-01-09] MEDS: Enoxaparin 40 MG/0.4 ML SYR SC (07:49)
[2024-01-09] MEDS: Thiamine 100 MG TAB PO (07:49)
[2024-01-09] MEDS: Insulin Aspart 300 UNITS/3 ML PEN SC ×3 (07:54→16:53)
[2024-01-09] MEDS: Normal Saline Flush 10 ML SYR IVP ×2 (07:57→22:03)
--- NOTE | 2024-01-09 09:57 | INITIAL_ITS ---
Date of service: 01/09/24 Time of Service: 09:57 Care Management Initial Assmt Initial Assessment Reason for Hospitalization: ETOH withdrawal Functional Status/Living Situation Patient Presentation: Mina brought himself to the ER yesterday, at the encouragement of his mentor, because he has been drinking excessively, and was feeling poorly. When CM met with him today, he was lying in bed with his eyes closed. He opened his eyes when CM knocked on the door, and was pleasant and agreeable to talk with CM. Mina stated that he is well connected with several mentors in the community that help him with his sobriety, he lives at [facility], a transitional sober home. He does not currently attend AA meetings, but receives counseling at [facility]. He is looking to go to [facility] or [facility] when he is discharged. CM encouraged him to make those calls and provided him with the numbers. Mina declined the offer to speak with a recovery assistant today. Mina is retired, but keeps active volunteering at his denominational. 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 Mina also volunteers at his denominational [employer].) Instrumental Activities of Daily Living (ADLs): Independent Medications Medication Management: No Issues/Barriers identified Advance Directives Advance Directives: Do you have an Advance Directive: N 09/06/20 13:[address] File [address] [facility]: N 09/06/20 13:01 Date Asked 01/08/24 01/08/24 13:43 AD Date Reviewed COLST On File at [facility] No 10/19/22 17:49 COLST Date Scanned Code Status Resuscitation Status Full Code Portal Pt does not currently have a portal and education provided: Yes Insurance Coverage/Financial Issues Insurance: [employer] Financial Issues: denies Care Team Visit Care Team Role Provider Type Mel Llamas NP Primary Care Provider NURSE PRACTITIONER Skinny Cage MD Emergency Provider [facility] STAFF PHYSICIAN Chaparro Brown MD Admit Provider [facility] STAFF PHYSICIAN Attending Provider Discharge Potential Discharge Needs: PCP F/U Appt and Other (in-patient alcohol rehab) Anticipated Barriers to Discharge: None Identified Patient/Family Education Needs: Review discharge instructions, discuss Ask Me Three Transportation: Private vehicle Plan: Anticipate that Mina will discharge home when medically cleared. He will contact [facility] and [facility], and remain in touch with his mentors. He will f/u with his PCP and continue per his plan of care. Mina will be transported in a private vehicle. CM will continue to follow. PFSH All Active Problems (Updated 01/08/24 @ 19:31 by Edelmira Hay DO) Diverticula of colon (Acute) Melena (Acute) Single kidney (Acute) Steatosis (Acute) Acute kidney injury superimposed on CKD (Acute) Hyperglycemia (Acute) ALEJANDRO (acute kidney injury) (Acute) Alcohol withdrawal (Acute) Age-related nuclear cataract, bilateral (Acute ~10/03/23) [place] Type 2 diabetes mellitus with mild nonproliferative diabetic retinopathy without macular edema, bilateral (Acute ~10/03/23) [place] Misuse of prescription only drugs (Acute ~03/2023) RX Gabapentin Solitary left kidney (Acute) [facility] Nephro (initial 07/2020); s/p nephrectomy on R 2004 renal cell cancer; partial nephrectomy on L 2007 Hyperlipidemia (Acute) History of elevated PSA (Acute) Per [facility] Records--01/14/2019 6.41, 04/28/2018 6.32; +Fam hx prostate cancer in F Secondary hyperparathyroidism (Acute ~05/2021) 05/29/21 [facility] Nephrology CKD (chronic kidney disease) stage 4, GFR 15-29 ml/min (Acute) Diabetic peripheral neuropathy (Chronic) B12 deficiency (Acute) Alcohol use disorder (Chronic) Lamellar macular hole of both eyes (Acute 10/25/21) Type 1 diabetes, controlled, with neuropathy (Chronic ~05/2017) Adult onset, diagnosed 05/2017 [facility] Endo Dr. Douglas--recommend GLP1 Personal goal A1C <7% Family history of prostate cancer (Chronic) F Hypertension (Chronic) RX Lisinopril (stopped due to creatinine) Medical History (Updated 01/08/24 @ 19:31 by Edelmira Hay DO) History of Yodit's gangrene Microcytic anemia Sinus tachycardia Fever Thrombosis superficial vein, arm, acute Gallstones Kidney lesion, [place], left Colitis due to Clostridium difficile Skin ulcer of scrotum (~2022) De Quervain's tenosynovitis, left 40 mg Depo-Medrol injection: 04/04/2022 Metabolic acidosis Alcohol intoxication (~12/02/21) Osteoarthritis of elbows, bilateral Lesion of bone of left forearm proximal radius lesion Tubular adenoma of colon 08/2018 colonoscopy [facility]; recall 5y History of alcohol use disorder since 1989 with intermittent sobriety History of opioid abuse s/p surgeries; visiting brother 08/2021 ([facility] admission) History of renal cell cancer s/p nephrectomy Chronic gingivitis, plaque induced Dentist Bilateral carpal tunnel syndrome Polyneuropathy associated with underlying disease DM Surgical History H/O skin graft [facility] 07/12/22 Scrotal Abscess 07/15/22 Skin Graft with Bolster removal H/O arthroscopy of knee Remotely--both knees at some point; he cannot recall what, but thinks meniscal History of nephrectomy, right (~03/2004) Renal cell cancer H/O partial nephrectomy (~04/2007) left Family History Mother , 54yo breast cancer Alcohol abuse Breast cancer Depression Substance abuse Father , ~70yo prostate cancer Alcohol abuse Prostate cancer Substance abuse Sister , throat caner (nicotine use) Alcohol abuse Cancer Cervical Substance abuse Social History Smoking/Tobacco Use Status: Never Smoking risk assessment performed?: Yes Alcohol Intake: current Alcohol Intake frequency: a few times a month Previous attempts at quittin Counseling given: Yes ([facility]) Drug use: Never Substance use type: opiates Details: no IV drug use Adopted: No Caregiver/Support person: No Foster care: No Household members: other Details: Sober Living Facility Housing: house Number of Children: 4 number of grandchildren: 4 Communication Needs: None Education Level: college Do you need help understanding health information?: Rarely 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) Pets and animals: Yes Pets and animals: cat(s) Sexually active: No Do you think of yourself as: straight/heterosexual Current gender identity: male What is your relationship status?: How often do you talk on the phone with friends or family?: three or more times per week How often do you get together with friends or relatives?: three or more times per week How often do you attend denominational or nondenominational services?: 4 or more times per year Do you belong to any clubs or organized social groups?: no Panel score (0-1 are the most socially isolated patients): 2 What type of physical activity do you participate in: walking, bicycling and other Details: EXERCISE ON STATIONARY BIKE Duration: < 15 minutes/day Frequency: 3-4 times per week Erin/Hoahaoism: Evangelical Agree to transfusion: No Seatbelt use: always Helmet use: Yes Drive intox or ride w/intox food service driver: No Water heater temp set <120 deg: Yes Working smoke detector in home: Yes Fire extinguisher in home: Yes Do you feel safe at home: Yes Do you feel safe in your relationship?: Yes Readmission Within the Past 30 Days Yes or No: No SDOH(Care Management) Screening Will the Patient Participate in the Screening?: Yes Do you worry about having a steady place to live?: no Problems where you live: no known problems In the past 12 months, have you had to go without electric, gas, oil or water in your home?: no Have you or anyone in your house had to go without enough food to eat?: no Has lack of transportation kept you from medical appointments or from doing things needed for daily living?: no Has anyone in your support network made you feel unsafe for any reason?: no
--- NOTE | 2024-01-09 12:28 | PGE_ITS ---
Date of Service Date of service: 01/09/24 Time of Service: 12:28 Assessment and Plan Assessment and plan (1) Alcohol withdrawal: Status: Acute Assessment and plan: - Patient has history of significant alcohol use disorder and alcohol withdrawal with seizure -Received first loading dose of IV phenobarb in the emergency department significant improvement of CIWA which was initially 20 -Given patient's improvement and is determined he is appropriate for the floor where he will receive remainder of his loading doses -Patient continuing to have elevated CIWA scores though as needed phenobarbital is providing some intermittent relief -Continue to monitor CIWA and give as needed PO phenobarb as per protocol (2) Acute kidney injury superimposed on CKD: Status: Acute Assessment and plan: - Creatinine 3.4, baseline as of 1 year ago was 1.7 -This is also in the setting of IDDM and patient having solitary left kidney status post renal cell carcinoma -Patient received fluids in the emergency department, will follow-up a.m. BMP (3) Solitary left kidney: Status: Acute Assessment and plan: Secondary to renal cell carcinomastatus post nephrectomy and 2020 (4) Type 2 diabetes mellitus with mild nonproliferative diabetic retinopathy without macular edema, bilateral: Status: Acute Assessment and plan: - Continue scheduled insulin -Additional sliding scale insulin and heart healthy carb consistent diet (5) Hyperlipidemia: Status: Acute Assessment and plan: -Continue home statin Qualifiers: Hyperlipidemia type: mixed hyperlipidemia Qualified Code(s): E78.2 - Mixed hyperlipidemia (6) Melena: Status: Acute Assessment and plan: - Evaluated by surgery, appreciate consultation and recommendations -Will initiate H2 lidia for GI protection and renally dose -Will coordinate EGD for variceal surveillance if appropriate during patient's hospitalization or recommend as outpatient follow-up Subjective Subjective Interval history since last seen: Patient had intermittent episodes of elevated CIWA score overnight and as needed phenobarb. He was able to sleep in between these episodes. However, this morning he is continuing to experience withdrawal symptoms with CIWA scores in the mid to high teens. Patient understands the plan to continue with phenobarbital, and has no other complaints or concerns at this time. Exam Narrative Exam Narrative: Well-appearing gentleman sitting up in the bed in mild distress due to withdrawal symptoms, most recently with CIWA score of 17, ANO x 4, heart regular rhythm, lungs, auscultation bilaterally, abdomen soft, nontender, nondistended Objective Last Vital Signs Temp 97.7 F 01/09/24 12:00 Pulse 93 H 01/09/24 12:00 Resp 20 01/09/24 12:00 BP 116/77 01/09/24 12:00 Pulse Ox 93 01/09/24 12:00 Laboratory Results - last 24 hr 01/08/24 01/08/24 01/09/24 14:18 15:45 01:33 WBC 8.91 RBC 4.78 Hgb 14.0 Hct 43.1 MCV 90 MCH 29.3 MCHC 32.5 RDW 13.8 Plt Count 313 MPV 9.8 Immature Gran % 1.1 Neutrophils % 72.3 Lymphocytes % 16.8 Monocytes % 6.2 Eosinophils % 3.0 Basophils % 0.6 Nucleated RBC % 0.0 Absolute Neutrophils 6.44 Absolute Lymphocytes 1.50 Absolute Monocytes 0.55 Absolute Eosinophils 0.27 Absolute Basophils 0.05 PT 10.4 INR 1.0 Sodium 137 Potassium 4.9 Chloride 103 Carbon Dioxide 19.0 L Anion Gap 15.0 H BUN 56 H Creatinine 3.4 H Est GFR (CKD-EPI 2020) 19.35 Glucose 238 H Calcium 9.4 Magnesium 1.9 Ferritin 421 H Total Bilirubin 0.94 GGT 49 AST 39 H ALT 47 Alkaline Phosphatase 98 Troponin I 31 33 C-Reactive Protein 0.53 H Total Protein 8.2 Albumin 3.6 Vitamin B12 756 Folate > 20.0 H Procalcitonin 0.24 Urine Opiates Screen Negative Urine Methadone Screen Negative Ur Barbiturates Screen Positive A Ur Tricyclics Screen Negative Ur Amphetamines Screen Negative U Benzodiazepines Scrn Negative Urine Cocaine Screen Negative Ur THC Screen Positive A Ethyl Alcohol < 3.0 Add-On Test Request DONE 01/09/24 05:56 WBC 9.95 RBC 4.19 L Hgb 12.4 L Hct 37.9 L MCV 91 MCH 29.6 MCHC 32.7 RDW 13.7 Plt Count 252 MPV 10.1 Immature Gran % Neutrophils % Lymphocytes % Monocytes % Eosinophils % Basophils % Nucleated RBC % Absolute Neutrophils Absolute Lymphocytes Absolute Monocytes Absolute Eosinophils Absolute Basophils PT 10.4 INR 1.0 Sodium 137 Potassium 4.6 Chloride 104 Carbon Dioxide 20.4 L Anion Gap 12.6 H BUN 58 H Creatinine 3.4 H Est GFR (CKD-EPI 2020) 19.35 Glucose 238 H Calcium 8.9 Magnesium 2.0 Ferritin Total Bilirubin GGT AST ALT Alkaline Phosphatase Troponin I C-Reactive Protein Total Protein Albumin Vitamin B12 Folate Procalcitonin Urine Opiates Screen Urine Methadone Screen Ur Barbiturates Screen Ur Tricyclics Screen Ur Amphetamines Screen U Benzodiazepines Scrn Urine Cocaine Screen Ur THC Screen Ethyl Alcohol Add-On Test Request PAWSS Have you Been Recently Intoxicated or Drunk Within the Last 30 days?: Yes Have you Ever Experienced Previous Episodes of Alcohol Withdrawal?: Yes Have you ever Experienced Withdrawal Seizures?: Yes Have you ever Experienced Delirium Tremens(DT)s?: Yes Have you ever undergone Alcohol Rehabilitation Treatment (i.e, inpt ot outpatient treatment programs)?: Yes Have you ever Experienced Blackouts?: Yes Have you ever Combined Alcohol with other Downers within the last 90 days?: Yes Have you ever Combined Alcohol with any other Substance of Abuse during the last 90 days?: Yes Positive Blood Alcohol level on Presentation? [PCS.BAL]: Yes Evidence of Increased Autonomic Activity (i.e. HR>120, tremor, sweating, agitation, nausea)?: Yes Result: 10 Time Spent with Patient Time Spent with Patient: >50 minutes Time was spent: preparing to see the patient(eg.review tests), obtaining and/or reviewing separately otained hiistory, ordering medications,tests, procedures, referring, communicating with other health manager intensive care unit, indepentently interpreting results, counseling the patient and care coordination
--- NOTE | 2024-01-09 14:46 | PHA.REVIEW2 ---
Pharmacy Admission Review Admission Clinical Review Admission Pharmacy Review: Diverticula of colon (Acute) Melena (Acute) Acute kidney injury superimposed on CKD (Acute) Hyperglycemia (Acute) ALEJANDRO (acute kidney injury) (Acute) Alcohol withdrawal (Acute) Type 2 diabetes mellitus with mild nonproliferative diabetic retinopathy without macular edema, bilateral (Acute ~10/03/23) Solitary left kidney (Acute) Hyperlipidemia (Acute) History of elevated PSA (Acute) CKD (chronic kidney disease) stage 4, GFR 15-29 ml/min (Acute) lactose intolerant Adverse Reaction (Mild, Uncoded 01/08/24 13:34) Diarrhea Resuscitation Status Full Code Height 5 ft 10 in Weight 113.398 kg Pharmacy Admission Review Renal Dosing Renal Dosing: BUN 58 mg/dL (7-18) H 01/09/24 05:56 Creatinine 3.4 mg/dL (0.70-1.30) H 01/09/24 05:56 Medications needing adjustments: Intervened (crcl ~27) List of meds needing interventions: enoxaparin adjusted from 40 mg to 30 mg qday, famotidine adjusted from 20 mg daily to q48h. can adjust back if crcl >30 Anticoagulation Anticoagulation: Hgb 12.4 g/dL (13.5-17.5) L 01/09/24 05:56 Hct 37.9 % (40.0-50.0) L 01/09/24 05:56 Plt Count 252 10^3/uL (130-400) 01/09/24 05:56 INR 1.0 (0.9-1.1) 01/09/24 05:56 Creatinine 3.4 mg/dL (0.70-1.30) H 01/09/24 05:56 DVT Prophylaxis: Reviewed Medications: Enoxaparin (30 mg daily (renally dosed)) Therapeutic Anticoagulation: N/A Opiate Usage Evaluate Pain Scale/Pains Meds: Reviewed (not on any opiates) Relevant Labs Relevant Labs: Sodium 137 mmol/L (136-145) 01/09/24 05:56 Potassium 4.6 mmol/L (3.5-5.1) 01/09/24 05:56 Chloride 104 mmol/L (98-107) 01/09/24 05:56 Magnesium 2.0 mg/dL (1.8-2.4) 01/09/24 05:56 C-Reactive Protein 0.53 mg/dL (<or=0.5) H 01/08/24 15:45 Electrolytes, C-Reactive P, ESR: Reviewed DM Control DM Control: Reviewed Insulin Dosing, Diabetic Medication: insulin aspart sliding scale with meals + lantus 22 units qpm (therapeutic sub for pt's own Toujeo 28 units qpm [20% dose reduction for conversion]). appears to be noncompliant w/home regimen Cardiac Review Cardiac Review: Troponin I 33 ng/L (<or=76) 01/08/24 15:45 BP, HR, EF%: Reviewed (BP improved after metoprolol dose last night, unclear if pt taking as prescribed at home (last fill 08/17 #90 day supply would have run out ~2 months ago)) QTc Review QTc: Reviewed (QTc = 464 01/08/24) IV to PO Switch IV Medications: Reviewed (phenobarb & famotidine changed to PO today, other meds PO) Home Meds Home Med List reviewed: Reviewed Relevent Home Meds Not ordered & why?: toujeo - sub to lantus Medication adherence barriers identified?: unclear what his barriers to adherence are but pt does appear to be noncompliant based on Rx fill history Current Meds Current Medication Order Review: Intervened Comments: phenobarbital etoh withdrawal protocol: IBW = 73 kg. soft stop 15 mg/kg = 1095 mg, hard stop 20 mg/kg = 1460 mg received 440 mg (6 mg/kg) (1st part of loading dose) in ED. initially ordered by ED MD 15 mg/kg total load d/t CIWA = 20, hx of seizures - spoke w/Dr. Brown on admission to let him know soft stop would already be reached if remainder of loading dose was given, the decision was made to discontinue remaining loading dose and just do per protocol PRN dosing as this would allow for more wiggle room before reaching hard & soft stops, pt had significant improvement from initial dose in ED. dosing so far (as of 01/08 @1500): 440 mg load + 5 prn doses = 1060 mg prn order switched from 130 mg IV to 100 mg PO Pharmacy Antibiotic Review Relevant Labs: Relevant Labs 01/08/24 01/08/24 15:45 14:18 C-Reactive Protein 0.53 H Procalcitonin 0.24
[2024-01-09] MEDS: DULoxetine 30 MG CAP 90 MG PO (22:02)
[2024-01-09] MEDS: Atorvastatin 20 MG TAB PO (22:02)
[2024-01-09] MEDS: Metoprolol CR 25 MG TABCR 75 MG PO (22:02)
[2024-01-09] MEDS: Insulin Glargine 300 UNITS/3 ML PEN 22 UNITS SC (22:03)
[2024-01-09] MEDS: Docusate Sodium 100 MG CAP PO (22:11)
[2024-01-10] VITALS (8 sets, daily range): BP systolic 93–122; BP diastolic 59–86; PULSE 66–85; RESP 16–18; TEMP 36.3–37.2; O2SAT 92–98
[2024-01-10 06:35] LABS: HCT 37.4 % (40.0-50.0); MCH 29.5 pg (27.0-33.0); MCHC 32.1 % (32.0-36.0); MCV 92 fL (80-95); MPV 10.2 fL (8.0-11.0); Platelet Count 242 10^3/uL (130-400); RBC 4.07 10^6/uL (4.36-5.78); RDW 13.6 % (11.8-14.1); RDW-SD 46.1 fL; WBC 7.61 10^3/uL (4.4-10.8)
[2024-01-10 07:12] LABS: Anion Gap 14.6 mmol/L (3-11); BUN 73 mg/dL (7-18); CO2 19.4 mmol/L (21.0-32.0); Calcium 8.5 mg/dL (8.5-10.1); Chloride 104 mmol/L (98-107); Estimated GFR 15.92 (mL/min/1.73m2); Glucose 167 mg/dL (74-106); Potassium 4.5 mmol/L (3.5-5.1); Sodium 138 mmol/L (136-145)
[2024-01-10] MEDS: Enoxaparin 30 MG/0.3 ML SYR SC (08:06)
[2024-01-10] MEDS: Thiamine 100 MG TAB PO (08:07)
[2024-01-10] MEDS: Multivitamin TAB 1 TAB PO (08:07)
[2024-01-10] MEDS: Insulin Aspart 300 UNITS/3 ML PEN SC ×2 (08:07→11:54)
[2024-01-10] MEDS: Folic Acid 1 MG TAB PO (08:07)
[2024-01-10] MEDS: Normal Saline Flush 10 ML SYR IVP ×2 (08:08→19:16)
--- NOTE | 2024-01-10 08:10 | RESPIRATORY ---
Pt advises he has CANDIDO diagnosis but he refuses to purchase CPAP machine
[2024-01-10] MEDS: Normal Saline 500 ML 1000 ML IV ×2 (08:16→13:50)
[2024-01-10] MEDS: Naltrexone 50 MG TAB PO (09:22)
--- NOTE | 2024-01-10 12:03 | PGE_ITS ---
Date of Service Date of service: 01/10/24 Time of Service: 12:03 Assessment and Plan Assessment and plan (1) Alcohol withdrawal: Status: Acute Assessment and plan: - Patient has history of significant alcohol use disorder and alcohol withdrawal with seizure -Received first loading dose of IV phenobarb in the emergency department significant improvement of CIWA which was initially 20 -Given patient's improvement and is determined he is appropriate for the floor where he will receive remainder of his loading doses -Last phenobarb dose given at 1700 on 01/09/2024 -continue to monitor CIWA score (2) Acute kidney injury superimposed on CKD: Status: Acute Assessment and plan: - Creatinine 3.4 on admission, baseline as of 1 year ago was 1.7 -This is also in the setting of IDDM and patient having solitary left kidney status post renal cell carcinoma -Cr up to 4 AM 01/09; DCed homs lisinopril and gave 1L NS -f/u AM BMP (3) Solitary left kidney: Status: Acute Assessment and plan: Secondary to renal cell carcinomastatus post nephrectomy and 2020 (4) Type 2 diabetes mellitus with mild nonproliferative diabetic retinopathy without macular edema, bilateral: Status: Acute Assessment and plan: - Continue scheduled insulin -Additional sliding scale insulin and heart healthy carb consistent diet (5) Hyperlipidemia: Status: Acute Assessment and plan: -Continue home statin Qualifiers: Hyperlipidemia type: mixed hyperlipidemia Qualified Code(s): E78.2 - Mixed hyperlipidemia (6) Melena: Status: Acute Assessment and plan: - Evaluated by surgery, appreciate consultation and recommendations -Will initiate H2 lidia for GI protection and renally dose -Will coordinate EGD for variceal surveillance if appropriate during patient's hospitalization or recommend as outpatient follow-up Subjective Subjective Interval history since last seen: Patient states that he is feeling much better today and is no longer feeling anxious, having tremors or sweats. However, he does state that he feels little woozy or unclear in his head and somewhat unstable on his feet and is not totally comfortable with discharge as he feels ambulating may be unsafe. Otherwise he has no other complaints or concerns at this time. Exam Narrative Exam Narrative: Well-appearing gentleman sitting up in the chair no acute distress, ANO x 4, heart regular rhythm, lungs, auscultation bilaterally, abdomen soft, nontender, nondistended Objective Last Vital Signs Temp 98.4 F 01/10/24 10:54 Pulse 78 01/10/24 10:54 Resp 16 01/10/24 10:54 BP 105/86 01/10/24 10:54 Pulse Ox 93 01/10/24 10:54 Laboratory Results - last 24 hr 01/10/24 06:00 WBC 7.61 RBC 4.07 L Hgb 12.0 L Hct 37.4 L MCV 92 MCH 29.5 MCHC 32.1 RDW 13.6 Plt Count 242 MPV 10.2 Sodium 138 Potassium 4.5 Chloride 104 Carbon Dioxide 19.4 L Anion Gap 14.6 H BUN 73 H Creatinine 4.0 H* Est GFR (CKD-EPI 2020) 15.92 Glucose 167 H Calcium 8.5 PAWSS Have you Been Recently Intoxicated or Drunk Within the Last 30 days?: Yes Have you Ever Experienced Previous Episodes of Alcohol Withdrawal?: Yes Have you ever Experienced Withdrawal Seizures?: Yes Have you ever Experienced Delirium Tremens(DT)s?: Yes Have you ever undergone Alcohol Rehabilitation Treatment (i.e, inpt ot outpatient treatment programs)?: Yes Have you ever Experienced Blackouts?: Yes Have you ever Combined Alcohol with other Downers within the last 90 days?: Yes Have you ever Combined Alcohol with any other Substance of Abuse during the last 90 days?: Yes Positive Blood Alcohol level on Presentation? [PCS.BAL]: Yes Evidence of Increased Autonomic Activity (i.e. HR>120, tremor, sweating, agitation, nausea)?: Yes Result: 10 Time Spent with Patient Time Spent with Patient: >50 minutes Time was spent: preparing to see the patient(eg.review tests), obtaining and/or reviewing separately otained hiistory, ordering medications,tests, procedures, referring, communicating with other health personal care attendant, indepentently interpreting results, counseling the patient and care coordination
[2024-01-10] MEDS: Insulin Glargine 300 UNITS/3 ML PEN 22 UNITS SC (19:14)
[2024-01-10] MEDS: Metoprolol CR 25 MG TABCR 75 MG PO (19:15)
[2024-01-10] MEDS: DULoxetine 30 MG CAP 90 MG PO (19:15)
[2024-01-10] MEDS: Famotidine 20 MG TAB PO (19:15)
[2024-01-10] MEDS: Atorvastatin 20 MG TAB PO (19:15)
[2024-01-11 00:46] VITALS: BP 120/73; PULSE 80; RESP 18; TEMP 36.5; O2SAT 96
[2024-01-11 04:55] VITALS: BP 100/64; PULSE 71; RESP 18; TEMP 36.3; O2SAT 96
[2024-01-11 06:10] LABS: HCT 37.5 % (40.0-50.0); HGB 12.5 g/dL (13.5-17.5); MCH 30.4 pg (27.0-33.0); MCHC 33.3 % (32.0-36.0); MCV 91 fL (80-95); MPV 10.6 fL (8.0-11.0); Platelet Count 215 10^3/uL (130-400); RBC 4.11 10^6/uL (4.36-5.78); RDW 13.7 % (11.8-14.1); RDW-SD 45.9 fL; WBC 7.73 10^3/uL (4.4-10.8)
[2024-01-11 06:23] LABS: Anion Gap 11.8 mmol/L (3-11); BUN 74 mg/dL (7-18); CO2 20.2 mmol/L (21.0-32.0); CREATININE 3.4 mg/dL (0.70-1.30); Calcium 8.6 mg/dL (8.5-10.1); Chloride 108 mmol/L (98-107); Estimated GFR 19.35 (mL/min/1.73m2); Glucose 146 mg/dL (74-106); Potassium 4.6 mmol/L (3.5-5.1); Sodium 140 mmol/L (136-145)
[2024-01-11 07:27] VITALS: BP 115/75; PULSE 72; RESP 16; TEMP 36.4; O2SAT 95
[2024-01-11] MEDS: Enoxaparin 30 MG/0.3 ML SYR SC (08:39)
[2024-01-11] MEDS: Thiamine 100 MG TAB PO (08:39)
[2024-01-11] MEDS: Folic Acid 1 MG TAB PO (08:39)
[2024-01-11] MEDS: Naltrexone 50 MG TAB PO (08:39)
[2024-01-11] MEDS: Multivitamin TAB 1 TAB PO (08:39)
[2024-01-11] MEDS: Normal Saline Flush 10 ML SYR IVP (08:39)
--- NOTE | 2024-01-11 08:53 | PDOC.CMDIS ---
Date of service: 01/11/24 Time of Service: 08:53 LACE Index Scoring Tool Questions: Length of Stay (in days): 3 Was the patient admitted via the E.D.?: Yes Comorbidities: Diabetes w/o Complication and Liver or Renal Disease E.D. Visits: 0 Answers: Total Score: 11 Risk of Readmission: High Risk Care Management Discharge Plan Reason for Hospitalization: ETOH withdrawal Discharge Plan: Mina will return home with no new services. He will transport home via private vehicle. He will follow up with his PCP and discharge plan of care. Patient/Family Education Needs: Review discharge instructions and limitations, discussion of self care needs including ask me three. SDOH Health Related Social Needs: No Data to Display
[2024-01-11 09:38] VITALS: O2SAT 95
--- NOTE | 2024-01-11 10:08 | W.PM.PROGNOT ---
Date of Service Date of service: 01/11/24 Time of Service: 10:08 Assessment and Plan Assessment and plan (1) Melena: Status: Acute Assessment and plan: Based on the clinical scenario, I do agree that you would benefit from a surveillance EGD to assess for esophageal varices or portal hypertensive gastropathy. I do not believe that this needs to be conducted as an inpatient. If he is suitable for discharge home today, then I will have my office arrange an outpatient appointment for an EGD. Subjective Subjective Interval history since last seen: Mina seems to be feeling much better overall, and he tells me that he is optimistic will be discharged today. He denies any abdominal discomfort. He has had no further obvious bleeding per rectum. Objective Last Vital Signs Temp 97.5 F L 01/11/24 07:27 Pulse 72 01/11/24 07:27 Resp 16 01/11/24 07:27 BP 115/75 01/11/24 07:27 Pulse Ox 95 01/11/24 09:38 Laboratory Results - last 24 hr 01/11/24 05:27 WBC 7.73 RBC 4.11 L Hgb 12.5 L Hct 37.5 L MCV 91 MCH 30.4 MCHC 33.3 RDW 13.7 Plt Count 215 MPV 10.6 Sodium 140 Potassium 4.6 Chloride 108 H Carbon Dioxide 20.2 L Anion Gap 11.8 H BUN 74 H Creatinine 3.4 H Est GFR (CKD-EPI 2020) 19.35 Glucose 146 H Calcium 8.6 PAWSS Have you Been Recently Intoxicated or Drunk Within the Last 30 days?: Yes Have you Ever Experienced Previous Episodes of Alcohol Withdrawal?: Yes Have you ever Experienced Withdrawal Seizures?: Yes Have you ever Experienced Delirium Tremens(DT)s?: Yes Have you ever undergone Alcohol Rehabilitation Treatment (i.e, inpt ot outpatient treatment programs)?: Yes Have you ever Experienced Blackouts?: Yes Have you ever Combined Alcohol with other Downers within the last 90 days?: Yes Have you ever Combined Alcohol with any other Substance of Abuse during the last 90 days?: Yes Positive Blood Alcohol level on Presentation? [PCS.BAL]: Yes Evidence of Increased Autonomic Activity (i.e. HR>120, tremor, sweating, agitation, nausea)?: Yes Result: 10 Time Spent with Patient Time Spent with Patient: <25 minutes Time was spent: counseling the patient and care coordination
--- NOTE | 2024-01-12 12:05 | W.PM.DS.N ---
Date of service: 01/11/24 Time of Service: 10:00 DS: Diagnosis Discharge Diagnosis (1) Melena: Status: Acute (2) Alcohol use disorder: Status: Chronic (3) Type 2 diabetes mellitus with mild nonproliferative diabetic retinopathy without macular edema, bilateral: Status: Acute (4) CKD (chronic kidney disease) stage 4, GFR 15-29 ml/min: Status: Acute (5) Alcohol withdrawal: Status: Resolved Discharge Plan Disposition Patient Disposition: Home Condition: Good Discharge Details Reason For Visit: ETOH Withdrawal Admit Date/Time: 01/08/24 15:44 Admit Provider: Chaparro Brown Attending Provider: Chaparro Brown Primary Care Provider: Mel Llamas Hospital Course Hospital Course: 63 yo M with history of alcohol use disorder, CKD4, type 2 DM now insulin dependant who was admitted for alcohol withdrawal. He was treated with the phenobarbital protocol. He has a history of seizures previously associated with withdrawal but had an uncomplicated course this admission. By the day of discharge, he was feeling well and having minimal withdrawal symptoms. He was started back on naltrexone for AUD, which had worked well before. He has a sponsor and lutheran support and plans to entered [place] supportive housing. He had an episode of melena the first day of admission. He was seen by surgery and EGD was recommended (varicies were mentioned in the consult but he has no history of cirrhosis including on CT this admission and platelets of >150 are indication that risk of portal hypertension is very low). He is at risk for alcoholic gastropathy and PUD. His hemoglobin dropped from 14.0 to 12.5 and stabilized. He is also at risk for anemia of CKD. Referral was placed to consider EGD as an outpatient. Renally dosed famotidine was given. His creatinine on admission was 3.4. The trend over the past year has been gradual worsening of GFR. The creatinine was as high as 4, but went back down to 3.4 on discharge. He is at significant risk for progression to hemodialysis and should be monitored closely including proteinuria levels. He was continued on low dose lisinopril. His GFR is <20 so SGLT2i not indicated. There was no hydronephrosis or other new findings on CT abd/pelvis w/o contrast. He was not taking his sodium bicarbonate on admission, and his bicarb levels were 19-20 so he may not need it. He appears to be due for parathyroid/phosphorus monitoring unless this is being done at another hospital. His insulin therapy was continued. His most recent A1c reflected reasonable control with A1c 7-8% range. Looks like he is type 2 DM, not type 1, based on antibody work up 09/2023, but still minimal beta-cell function based on history. Home Meds and New Rx's Prescriptions: New famotidine 20 mg Tablet 20 mg PO Q48H Qty: 45 0RF folic acid 1 mg Tablet 1 mg PO QAM 30 Days Qty: 30 0RF thiamine mononitrate (vit B1) [Vitamin B-1 (mononitrate)] 100 mg Tablet 100 mg PO QAM 30 Days Qty: 30 0RF Continued (DME) lancets Misc See Rx Instructions .MEDSUPPLY Rx Instructions: As directed to check blood glucose four times daily. On insulin. Dispense covered brand. (DME) Embrace DELLA test strips Strip See Rx Instructions .Route Patient Comments: Will need the embrace strips that match his meter-- Rx Instructions: As directed to fit his meter-- (DME) Dexcom G7 Financial Project Manager Misc See Rx Instructions .Route Qty: 1 0RF Rx Instructions: As directed (DME) Dexcom G7 Sensor Device See Rx Instructions .Route Qty: 1 0RF Rx Instructions: As directed acetaminophen 325 mg capsule 650 mg PO Q4H PRN lisinopril 5 mg tablet 2.5 mg PO DAILY atorvastatin 20 mg tablet See Rx Instructions .ROUTE .COMPLEX Qty: 90 3RF Dose Instruction: TAKE 1 TABLET BY MOUTH EVERY NIGHT AT BEDTIME FOR CHOLESTEROL OR DIABETES Rx Instructions: TAKE 1 TABLET BY MOUTH EVERY NIGHT AT BEDTIME FOR CHOLESTEROL OR DIABETES (DME) OneTouch Verio test strips Strip See Rx Instructions .ROUTE .COMPLEX Qty: 400 3RF Dose Instruction: TEST BLOOD SUGAR FOUR TIMES A DAY Rx Instructions: TEST BLOOD SUGAR FOUR TIMES A DAY (DME) pen needle, diabetic [Unifine Pentips Plus] 32 gauge x 5/32 needle See Rx Instructions .ROUTE .COMPLEX Qty: 360 3RF Dose Instruction: USE FOUR TIMES DAILY FOR GOAL A1C<7 Rx Instructions: USE FOUR TIMES DAILY FOR GOAL A1C<7 insulin glargine U-300 conc [Toujeo Max U-300 SoloStar] 300 unit/mL (3 mL) insulin pen 28 unit subcut QPM MDD 50 units/24 h Qty: 30 4RF duloxetine 60 mg capsule,delayed release(DR/EC) See Rx Instructions .ROUTE .COMPLEX Qty: 90 3RF Dose Instruction: TAKE ONE CAPSULE BY MOUTH EVERY MORNING Rx Instructions: TAKE ONE CAPSULE BY MOUTH bedtime duloxetine 30 mg capsule,delayed release(DR/EC) See Rx Instructions .ROUTE .COMPLEX Qty: 90 3RF Dose Instruction: TAKE ONE CAPSULE BY MOUTH EVERY DAY STOP GABAPENTIN AND START DULOXETINE FOR NEUROPATHY Rx Instructions: TAKE ONE CAPSULE BY MOUTH EVERY DAY in AM (30mg AM, 60mg PM) metoprolol succinate 25 mg tablet extended release 24 hr See Rx Instructions .ROUTE .COMPLEX Qty: 270 0RF Dose Instruction: TAKE THREE TABLETS BY MOUTH EVERY EVENING AT BEDTIME Rx Instructions: TAKE THREE TABLETS BY MOUTH EVERY EVENING AT BEDTIME Fiasp FlexTouch U-100 Insulin 100 unit/mL (3 mL) insulin pen 1 sliding scale dose subcut USEASDIRECTD MDD 24 units per 24 hours Qty: 15 3RF Rx Instructions: AC & HS sliding scale--if glucose 0-199, 0 units,200-249 2 units, 250-299 3 units, 300-399 4 units and over 400 notify PCP. multivitamin [Multiple Vitamins] Tablet 1 tab PO QAM Qty: 0 0RF naltrexone 50 mg tablet 50 mg PO DAILY Qty: 90 3RF Discontinued sodium bicarbonate 650 mg tablet 650 mg PO TID Patient Comments: pt not taking Discharge Instructions Instructions: Chronic kidney disease, Alcohol Use Disorder (DC) Additional Instructions: You have been getting naltrexone here. Restart this at home. Use your recovery supports. You were also started on famotidine to protect your stomach. You may have had some bleeding from your stomach, and should have an upper endoscopy to look into your esophogus and stomach for sources of bleeding. A referral for this was placed. Stand Alone Forms: Nursing Discharge Form Referrals: Mel Llamas NUCLEAR EQUIPMENT RESEARCH ENGINEER [Primary Care Provider] - (Please call on Friday to make a follow up appointment for within 1 to 2 weeks.) Edelmira Hay DO [OSTEOPATHIC DOCTOR] - (seen while inpatient for melena in setting of EtOH withdrawal. No cirrhosis. DM and CKD 4. Recommended EGD on f/u. Please call to make a follow up appointment. ) Activity:: Activity as Tolerated Equipment/Supplies:: No Equipment Needed Diet:: As Tolerated Discharge Orders Discharge Orders: Discharge Order (Routine); Ordered 01/11/24 Ordered By: Toby Nuñez Discharge Data Discharge Date/Time-TO BE ENTERED AT DEPARTURE: 01/11/24 10:33 DS: Summary Time Spent with Patient providing and/or coordinating discharge services: Greater than 30 minutes Status at Discharge Functional status at discharge: independent ambulation Overall status at discharge: patient is back to baseline Mental Status: mental status grossly normal Speech and Movement: speech and movement normal Mood: congruent mood Affect: normal affect Quality:SDOH Health Related Social Needs: No Data to Display Exam Narrative Exam Narrative: Well-appearing gentleman sitting up in the chair no acute distress, ANO x 4, heart regular rhythm, lungs, auscultation bilaterally, abdomen soft, nontender, nondistended. Extremity without cyanosis or edema. No tremor. Normal mood and affect, normal thought process. Psych Mental Status: mental status grossly normal Speech and Movement: speech and movement normal Mood: congruent mood Affect: normal affect DS: Data Vitals/I&O Vitals and I&O: Vital Signs Temperature 36.4 C L 01/11/24 07:27 Temperature Source Temporal Artery Scan 01/11/24 07:27 Pulse 72 01/11/24 07:27 Pulse 115 H 01/08/24 16:01 Respiratory Rate 16 01/11/24 07:27 Respiratory Effort Normal 01/08/24 16:40 Respiratory Depth Normal 01/08/24 16:40 Respiratory Pattern Normal 01/08/24 16:40 Blood Pressure 115/75 01/11/24 07:27 Blood Pressure Mean 91 01/08/24 16:01 Blood Pressure Position Sitting 01/08/24 13:30 Pulse Oximetry 95 01/11/24 09:38 Oxygen Delivery Method Room Air 01/11/24 09:38 Oxygen Flow Rate 0 01/11/24 09:38 Pain Level 0 01/11/24 09:38 Comment RN notified 01/09/24 15:07 [facility] All Active Problems (Updated 01/12/24 @ 00:09 by CAMACHO VELÁSQUEZ) Diverticula of colon (Acute) Melena (Acute) Single kidney (Acute) Steatosis (Acute) Age-related nuclear cataract, bilateral (Acute ~10/03/23) [place] Type 2 diabetes mellitus with mild nonproliferative diabetic retinopathy without macular edema, bilateral (Acute ~10/03/23) [place] Misuse of prescription only drugs (Acute ~03/2023) RX Gabapentin Diabetic peripheral neuropathy (Chronic) B12 deficiency (Acute) Alcohol use disorder (Chronic) CKD (chronic kidney disease) stage 4, GFR 15-29 ml/min (Acute) Lamellar macular hole of both eyes (Acute 10/25/21) Type 1 diabetes, controlled, with neuropathy (Chronic ~05/2017) Adult onset, diagnosed 05/2017 [facility] Endo Dr. Douglas--recommend GLP1 Personal goal A1C <7% Secondary hyperparathyroidism (Acute ~05/2021) 05/29/21 [facility] Nephrology Family history of prostate cancer (Chronic) F History of elevated PSA (Acute) Per [facility] Records--01/14/2019 6.41, 04/28/2018 6.32; +Fam hx prostate cancer in F Solitary left kidney (Acute) [facility] Nephro (initial 07/2020); s/p nephrectomy on R 2004 renal cell cancer; partial nephrectomy on L 2007 Hyperlipidemia (Acute) Hypertension (Chronic) RX Lisinopril (stopped due to creatinine) Medical History (Updated 01/12/24 @ 00:09 by CAMACHO VELÁSQUEZ) History of Yodit's gangrene Sinus tachycardia Fever Thrombosis superficial vein, arm, acute Gallstones Kidney lesion, pokagon, left Microcytic anemia Colitis due to Clostridium difficile Skin ulcer of scrotum (~2022) De Quervain's tenosynovitis, left 40 mg Depo-Medrol injection: 04/04/2022 Metabolic acidosis Alcohol intoxication (~12/02/21) Osteoarthritis of elbows, bilateral Lesion of bone of left forearm proximal radius lesion Tubular adenoma of colon 08/2018 colonoscopy [facility] GI; recall 5y History of alcohol use disorder since 1989 with intermittent sobriety History of opioid abuse s/p surgeries; visiting brother 08/2021 ([facility] admission) History of renal cell cancer s/p nephrectomy Chronic gingivitis, plaque induced Dentist Bilateral carpal tunnel syndrome Polyneuropathy associated with underlying disease DM Surgical History H/O skin graft [facility] 07/12/22 Scrotal Abscess 5/15/23 Skin Graft with Bolster removal H/O arthroscopy of knee Remotely--both knees at some point; he cannot recall what, but thinks meniscal History of nephrectomy, right (~03/2004) Renal cell cancer H/O partial nephrectomy (~04/2007) left Family History Mother , 54yo breast cancer Alcohol abuse Breast cancer Depression Substance abuse Father , ~70yo prostate cancer Alcohol abuse Prostate cancer Substance abuse Sister , throat caner (nicotine use) Alcohol abuse Cancer Cervical Substance abuse Social History Smoking/Tobacco Use Status: Never Smoking risk assessment performed?: Yes Alcohol Intake: current Alcohol Intake frequency: a few times a month Previous attempts at quittin Counseling given: Yes ([facility]) Drug use: Never Substance use type: opiates Details: no IV drug use Adopted: No Caregiver/Support person: No Foster care: No Household members: other Details: [facility] Living Facility Housing: house Number of Children: 4 number of grandchildren: 4 Communication Needs: None Education Level: college Do you need help understanding health information?: Rarely 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) Pets and animals: Yes Pets and animals: cat(s) Sexually active: No Do you think of yourself as: straight/heterosexual Current gender identity: male What is your relationship status?: How often do you talk on the phone with friends or family?: three or more times per week How often do you get together with friends or relatives?: three or more times per week How often do you attend lutheran or yarsanism services?: 4 or more times per year Do you belong to any clubs or organized social groups?: no Panel score (0-1 are the most socially isolated patients): 2 What type of physical activity do you participate in: walking, bicycling and other Details: EXERCISE ON STATIONARY BIKE Duration: < 15 minutes/day Frequency: 3-4 times per week Erin/Uatsdin: [facility] Agree to transfusion: No Seatbelt use: always Helmet use: Yes Drive intox or ride w/intox intermodal owner operator truck driver: No Water heater temp set <120 deg: Yes Working smoke detector in home: Yes Fire extinguisher in home: Yes Do you feel safe at home: Yes Do you feel safe in your relationship?: Yes Time Spent with Patient Time Spent with Patient: 45-69 minutes Time was spent: preparing to see the patient(eg.review tests), obtaining and/or reviewing separately otained hiistory, ordering medications,tests, procedures, referring, communicating with other health lawn care worker, indepentently interpreting results, counseling the patient and care coordination
== END 2024-01-11 10:33 | disposition home or self-care (01) | DRG 897 ==
LOC: ER 15:25 → MS 16:27
PROVIDERS: Surgery; Admitting Provider Family Medicine; Emergency Provider Student in an Organized Health Care Education/Training Program; PCP Nurse Practitioner Adult Health; Visit Provider Family Medicine
DX: N17.9 Acute kidney failure, unspecified; N18.4 Chronic kidney disease, stage 4 (severe); K92.1 Melena; N25.81 Secondary hyperparathyroidism of renal origin; E11.3293 Type 2 diabetes mellitus with mild nonproliferative diabetic retinopathy without macular edema, bilateral; E78.2 Mixed hyperlipidemia; I12.9 Hypertensive chronic kidney disease with stage 1 through stage 4 chronic kidney disease, or unspecified chronic kidney disease; E11.22 Type 2 diabetes mellitus with diabetic chronic kidney disease; K80.20 Calculus of gallbladder without cholecystitis without obstruction; E11.42 Type 2 diabetes mellitus with diabetic polyneuropathy; F10.939 Alcohol use, unspecified with withdrawal, unspecified; Z85.528 Personal history of other malignant neoplasm of kidney; Z90.5 Acquired absence of kidney; E53.8 Deficiency of other specified B group vitamins; Z79.4 Long term (current) use of insulin
CPT/HCPCS: 00123; 36415; 80048; 80053; 80307; 84145; 85027; 93005; 96365; 99291; J1650; 74176; 80320; 82607; 82728; 82746; 82977; 83735; 84484; 85025; 85610; 86140; 93010; 94760; 99223; 99233; 99239; J1815; J2470; J2560; J3411

== ENCOUNTER 2024-02-16 10:19 | Inpatient (IN) | payer OTHER, SELFPAY ==
[2024-02-16] VITALS (41 sets, daily range): BP systolic 138–196; BP diastolic 82–117; PULSE 77–130; RESP 15–31; TEMP 36.6–37; O2SAT 79–100
--- NOTE | 2024-02-16 10:30 | RT.EKG_ITS ---
APPROVED REPORT Exam: Resting ECG Reason for Exam: withdrawl Patient Location: E HR:120 bpm ECG Measurements Heart Rate 120 AXIS MT 151 P 90 QRSd 97 QRS 85 QT 331 T 28 QTc 468 Conclusion Sinus tachycardia...rate> [address] elevation, anterolateral leads...ST >0.06mV, I aVL V2-V6 Physician: no stemi, slight peaking of t waves
[2024-02-16] MEDS: LORazepam 2 MG/ML VIAL 4 MG IVP (11:09)
[2024-02-16 11:15] LABS: Abs Immature Grans 0.07 10^3/uL (0.0-0.06); Absolute Basophil Count 0.04 10^3/uL (0.0-0.2); Absolute Eosinophil Count 0.21 10^3/uL (0.0-0.7); Absolute Lymphocyte Count 0.89 10^3/uL (1.2-3.4); Absolute Monocyte Count 0.56 10^3/uL (0.1-0.8); Absolute Neutrophil Count 7.14 10^3/uL (1.2-6.7); Basophils % 0.4 %; Eosinophils % 2.4 %; HCT 38.5 % (40.0-50.0); HGB 12.8 g/dL (13.5-17.5); Immature Grans % 0.8 %; MCH 30.3 pg (27.0-33.0); MCHC 33.2 % (32.0-36.0); MCV 91 fL (80-95); Monocytes % 6.3 %; Neutrophils % 80.1 %; Platelet Count 237 10^3/uL (130-400); RBC 4.22 10^6/uL (4.36-5.78); RDW 13.3 % (11.8-14.1); RDW-SD 45.1 fL; WBC 8.91 10^3/uL (4.4-10.8)
[2024-02-16 11:22] LABS: BE (Venous) -4 mmol/L (-2-3); HCO3 (Venous) 22 mmol/L (23-28); O2 Sat (Venous) 78 %; TCO2 (Venous) 20 mmol/L (24-29); pCO2 (Venous) 40 mmHg (41-51); pH (Venous) 7.34 (7.31-7.41); pO2 (Venous) 42 mmHg
--- NOTE | 2024-02-16 11:25 | ED.GENADUL_ITS ---
Discharge Plan Disposition Patient Disposition: Admit to [facility] Condition: Serious Discharge Details Clinical Impression: DTs (delirium tremens), Acute hyperkalemia, Hypomagnesemia Primary Care Provider: Mel Llamas ED Provider: David Urena Home Meds and New Rx's Prescriptions: No Action (DME) lancets Misc See Rx Instructions .MEDSUPPLY Rx Instructions: As directed to check blood glucose four times daily. On insulin. Dispense covered brand. (DME) Embrace DELLA test strips Strip See Rx Instructions .Route Patient Comments: Will need the embrace strips that match his meter-- Rx Instructions: As directed to fit his meter-- (DME) Dexcom G7 Grants Officer Misc See Rx Instructions .Route Qty: 1 0RF Rx Instructions: As directed (DME) Dexcom G7 Sensor Device See Rx Instructions .Route Qty: 1 0RF Rx Instructions: As directed acetaminophen 325 mg capsule 650 mg PO Q4H PRN lisinopril 5 mg tablet 2.5 mg PO DAILY atorvastatin 20 mg tablet See Rx Instructions .ROUTE .COMPLEX Qty: 90 3RF Dose Instruction: TAKE 1 TABLET BY MOUTH EVERY NIGHT AT BEDTIME FOR CHOLESTEROL OR DIABETES Rx Instructions: TAKE 1 TABLET BY MOUTH EVERY NIGHT AT BEDTIME FOR CHOLESTEROL OR DIABETES (DME) OneTouch Verio test strips Strip See Rx Instructions .ROUTE .COMPLEX Qty: 400 3RF Dose Instruction: TEST BLOOD SUGAR FOUR TIMES A DAY Rx Instructions: TEST BLOOD SUGAR FOUR TIMES A DAY (DME) pen needle, diabetic [Unifine Pentips Plus] 32 gauge x 5/32 needle See Rx Instructions .ROUTE .COMPLEX Qty: 360 3RF Dose Instruction: USE FOUR TIMES DAILY FOR GOAL A1C<7 Rx Instructions: USE FOUR TIMES DAILY FOR GOAL A1C<7 insulin glargine U-300 conc [Toujeo Max U-300 SoloStar] 300 unit/mL (3 mL) insulin pen 28 unit subcut QPM MDD 50 units/24 h Qty: 30 4RF duloxetine 60 mg capsule,delayed release(DR/EC) See Rx Instructions .ROUTE .COMPLEX Qty: 90 3RF Dose Instruction: TAKE ONE CAPSULE BY MOUTH EVERY MORNING Rx Instructions: TAKE ONE CAPSULE BY MOUTH bedtime duloxetine 30 mg capsule,delayed release(DR/EC) See Rx Instructions .ROUTE .COMPLEX Qty: 90 3RF Dose Instruction: TAKE ONE CAPSULE BY MOUTH EVERY DAY STOP GABAPENTIN AND START DULOXETINE FOR NEUROPATHY Rx Instructions: TAKE ONE CAPSULE BY MOUTH EVERY DAY in AM (30mg AM, 60mg PM) metoprolol succinate 25 mg tablet extended release 24 hr See Rx Instructions .ROUTE .COMPLEX Qty: 270 0RF Dose Instruction: TAKE THREE TABLETS BY MOUTH EVERY EVENING AT BEDTIME Rx Instructions: TAKE THREE TABLETS BY MOUTH EVERY EVENING AT BEDTIME Fiasp FlexTouch U-100 Insulin 100 unit/mL (3 mL) insulin pen 1 sliding scale dose subcut USEASDIRECTD MDD 24 units per 24 hours Qty: 15 3RF Rx Instructions: AC & HS sliding scale--if glucose 0-199, 0 units,200-249 2 units, 250-299 3 units, 300-399 4 units and over 400 notify PCP. multivitamin [Multiple Vitamins] Tablet 1 tab PO QAM Qty: 0 0RF naltrexone 50 mg tablet 50 mg PO DAILY Qty: 90 3RF HPI General Date/Time Provider Initiated Documentation: 02/16/24 10:20 . HPI Narrative: This is a very pleasant 63-year-old male with a past medical history of insulin-dependent diabetes mellitus, chronic kidney disease, high cholesterol, previous nephrectomy and significant alcohol use in the past, as well as DTs with seizures, who presents today for evaluation of DTs. Unfortunately the patient has fallen off of his sobriety pathway, and has been drinking about a half a gallon of 100 proof vodka for the last few weeks. Last drink was 10 hours ago. He reengaged with fellowship in his support groups, and they noticed that he was notably withdrawing. He has complaints of feeling like his skin is crawling, he hears persistent music in his ears, he feels very anxious and extremely nervous, and feels similar to previous withdrawals. He denies any vomiting but does admit to nausea. He denies any diarrhea or chest pain. No other complaints at this time. No other modifying factors. Related Data Home Medications ?Medication ?Instructions ?Recorded ?Confirmed lancets 08/03/20 02/16/24 blood-glucose meter,continuous #1 ea 08/26/22 02/16/24 (Dexcom G7 Grants Officer) blood-glucose sensor (Dexcom G7 #1 ea 08/26/22 02/16/24 Sensor device) multivitamin (Multiple Vitamins 1 tab PO QAM #0 tabs 09/10/22 02/16/24 tablet) acetaminophen 325 mg capsule 650 mg PO Q4H PRN 11/13/22 02/16/24 lisinopril 5 mg tablet 2.5 mg PO DAILY 11/13/22 02/16/24 atorvastatin 20 mg tablet See Rx Instructions .Route 11/29/22 02/16/24 .COMPLEX #90 tabs blood sugar diagnostic (Embrace 11/29/22 02/16/24 DELLA test strips) blood sugar diagnostic (OneTouch #400 strips 12/02/22 02/16/24 Verio test strips) pen needle, diabetic 32 gauge x #360 ea 02/11/23 02/16/24 (Unifine Pentips Plus) insulin glargine U-300 conc 300 28 unit (0.0933 mL) subcut QPM #30 07/12/23 02/16/24 unit/mL (3 mL) subcutaneous pen mL (Toujeo Max U-300 SoloStar) duloxetine 30 mg capsule,delayed See Rx Instructions .Route 08/04/23 02/16/24 release .COMPLEX #90 caps duloxetine 60 mg capsule,delayed See Rx Instructions .Route 08/04/23 02/16/24 release .COMPLEX #90 caps metoprolol succinate 25 mg See Rx Instructions .Route 08/18/23 02/16/24 tablet,extended release 24 hr .COMPLEX #270 tabs insulin aspart 1 sliding scale dose subcut 08/26/23 02/16/24 (niacinamide)(U-100) 100 unit/mL(3 USEASDIRECTD #15 mL mL) subcutaneous pen (Fiasp FlexTouch U-100 Insulin) naltrexone 50 mg tablet 50 mg PO DAILY #90 tabs 01/11/24 02/16/24 Previous Rx's ?Medication ?Instructions ?Recorded blood-glucose meter,continuous #1 ea 08/26/22 (Dexcom G7 Grants Officer) blood-glucose sensor (Dexcom G7 #1 ea 08/26/22 Sensor device) multivitamin (Multiple Vitamins 1 tab PO QAM #0 tabs 09/10/22 tablet) atorvastatin 20 mg tablet See Rx Instructions .Route 11/29/22 .COMPLEX #90 tabs blood sugar diagnostic (OneTouch #400 strips 12/02/22 Verio test strips) pen needle, diabetic 32 gauge x #360 ea 02/11/23 (Unifine Pentips Plus) insulin glargine U-300 conc 300 28 unit (0.0933 mL) subcut QPM #30 07/12/23 unit/mL (3 mL) subcutaneous pen mL (Toujeo Max U-300 SoloStar) duloxetine 30 mg capsule,delayed See Rx Instructions .Route 08/04/23 release .COMPLEX #90 caps duloxetine 60 mg capsule,delayed See Rx Instructions .Route 08/04/23 release .COMPLEX #90 caps metoprolol succinate 25 mg See Rx Instructions .Route 08/18/23 tablet,extended release 24 hr .COMPLEX #270 tabs insulin aspart 1 sliding scale dose subcut 08/26/23 (niacinamide)(U-100) 100 unit/mL(3 USEASDIRECTD #15 mL mL) subcutaneous pen (Fiasp FlexTouch U-100 Insulin) naltrexone 50 mg tablet 50 mg PO DAILY #90 tabs 01/11/24 Allergies Allergy/AdvReac Type Severity Reaction Status Date / Time lactose intolerant AdvReac Mild Diarrhea Uncoded 02/16/24 10:44 General Stated Complaint: DrugWithdr/MAT GALILEO: 2 Exam Narrative Exam Narrative: 1.Const: Well-nourished, Well-developed, appearing stated age 2.Eyes: PERRL, no conjunctival injection, and symmetrical lids. 3.ENT: Atraumatic external nose and ears. Moist MM. Neck: Symmetric, trachea midline, No thyromegaly. 4.CVS: +S1/S2, Peripheral pulses 2+ and equal in all extremities. Brisk capillary refill in all extremities. 5.RESP: Unlabored respiratory effort. Clear to auscultation bilaterally. No wheezes rales or rhonchi 6.GI: Soft, Nontender/Nondistended, No hepatosplenomegaly. No guarding or rebo und. 7.MSK: Normocephalic/Atraumatic, Extremities w/o deformity or ttp No cyanosis or clubbing, Normal movement of all extremities. Tremulous. Sweaty. 8.Skin: Warm, Dry. No rashes or lesions. 9.Neuro: oil seal assembler II-XII grossly intact. Sensation grossly intact, no focal neurologic deficits. 10.Psych: (AAO) x3. Notably anxious. Course Vital Signs Vital signs: Vital Signs Temperature 37.0 C 02/16/24 10:22 Pulse 130 H 02/16/24 10:22 Respiratory Rate 15 02/16/24 10:22 Blood Pressure 168/115 H 02/16/24 10:22 Pulse Oximetry 94 02/16/24 10:22 Temperature 37.0 C 02/16/24 10:22 Pulse 130 H 02/16/24 10:22 Respiratory Rate 15 02/16/24 10:22 Respiratory Pattern Tachypnea 02/16/24 10:38 Blood Pressure 168/115 H 02/16/24 10:22 Blood Pressure Position Sitting 02/16/24 10:22 Pulse Oximetry 94 02/16/24 10:22 Oxygen Delivery Method Room Air 02/16/24 10:22 Oxygen Flow Rate 0 02/16/24 10:22 Lab/Test Results Lab/Test Results: Laboratory Tests Range/Units 02/16/24 11:08 WBC (4.4-10.8) 10^3/uL 8.91 RBC (4.36-5.78) 10^6/uL 4.22 L Hgb (13.5-17.5) g/dL 12.8 L Hct (40.0-50.0) % 38.5 L MCV (80-95) fL 91 MCH (27.0-33.0) pg 30.3 MCHC (32.0-36.0) % 33.2 RDW (11.8-14.1) % 13.3 Plt Count (130-400) 10^3/uL 237 MPV (8.0-11.0) fL 10.0 Immature Gran % % 0.8 Neutrophils % % 80.1 Lymphocytes % % 10.0 Monocytes % % 6.3 Eosinophils % % 2.4 Basophils % % 0.4 Nucleated RBC % (0.0-0.3) % 0.0 Absolute Neutrophils (1.2-6.7) 10^3/uL 7.14 H Absolute Lymphocytes (1.2-3.4) 10^3/uL 0.89 L Absolute Monocytes (0.1-0.8) 10^3/uL 0.56 Absolute Eosinophils (0.0-0.7) 10^3/uL 0.21 Absolute Basophils (0.0-0.2) 10^3/uL 0.04 Procedures EJ/Peripheral Line Arm L: Time Out Performed: Yes Skin Cleansed in Sterile Fashion: Yes Size (gauge): 20 IV Secured and Dressing Applied: Yes Patient Tolerated Procedure: well and no complications Additional Comments: Candidate vein examined with linear array probe - confirmed collapsibility, lack of pulsatility, and proper anatomic location. Using aseptic technique, IV catheter inserted with flash of blood noted, flow of venous blood confirmed. Flushes easily and without pain. No hematoma or complications noted. IV secured. Patient tolerated well. Medical Decision Making This is a very pleasant 63-year-old male with a past medical history of insulin-dependent diabetes mellitus, chronic kidney disease, high cholesterol, previous nephrectomy and significant alcohol use in the past, as well as DTs with seizures, who presents today for evaluation of DTs. Unfortunately the patient has fallen off of his sobriety pathway, and has been drinking about a half a gallon of 100 proof vodka for the last few weeks. Last drink was 10 hours ago. He reengaged with fellowship in his support groups, and they noticed that he was notably withdrawing. He has complaints of feeling like his skin is crawling, he hears persistent music in his ears, he feels very anxious and extremely nervous, and feels similar to previous withdrawals. He denies any vomiting but does admit to nausea. He denies any diarrhea or chest pain. No other complaints at this time. No other modifying factors. Exam demonstrates an anxious, sweaty, tremulous patient. CIWA score is greater than 20. He is tachycardic and hypertensive and demonstrates symptoms consistent with active withdrawal. Will start him on a phenobarbital protocol at the higher dosing. Will give 4 of IV Ativan, will rehydrate, evaluate for electrolyte abnormalities, monitor closely for potential seizures, and reassess. 12:54 PM Laboratory workup has returned, PT PTT and INR are normal. pH is stable. Electrolytes demonstrate an elevated potassium of 5.8, the other electrolytes are normal. Anion gap is 12.2, BUN 57, creatinine 3.3, magnesium low at 1.5. Lipase normal, ammonia level normal. Urine drug screen negative. Thyroid function normal. Patient is clinically feeling much better after the medications, he still is quite jittery and anxious, heart rate has come down to 116, blood pressure still in the low 200s systolic. However he is sleeping but is very quickly and easily roused. He has demonstrated a few episodes of mild sleep apnea, but shows no signs whatsoever of obtundation. We will hold any ad ditional benzodiazepines at this time. In regard to his electrolytes, will give 2 g of magnesium. We will give the banana bag, because of his elevated potassium we will give 5 units of IV insulin, 2 albuterol inhalers, calcium gluconate for cardiac membrane stabilization, and an amp of D50. EKG shows minimal peaking of T waves. Intervals otherwise stable. I did contact the hospitalist Dr Peñaloza and he agrees with the assessment and plan. Patient will benefit from ICU admission. I have extensively reviewed the treatment plan with the patient. I have addressed all patient concerns at this time. I have also discussed the plan with the admitting physician and they agree with the current assessment and plan and have agreed to assume responsibility for the patient. All parties demonstrate verbal understanding and agreement with our assessment and plan at this time. The documentation in this chart was dictated using [employer] dictation software. Please excuse any dictation errors. Quality:SDOH Health Related Social Needs: No Data to Display Critical Care Time Critical Care Time Critical Care Time: Yes Total Critical Care Time: 70 Attestation: Upon my evaluation, this patient had a high probability of imminent or life- threatening deterioration, which required my direct attention, intervention, and personal management. I have personally provided 70 minutes of critical care time exclusive of time spent on separately billable procedures. Time includes review of laboratory data, radiology results, discussion with consultants, and monitoring for potential decompensation. Interventions were performed as documented. 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 without macular edema, bilateral (Acute ~10/03/23) [place] Misuse of prescription only drugs (Acute ~03/2023) RX Gabapentin Solitary left kidney (Acute) [facility] [place] [place] Nephro (initial 07/2020); s/p nephrectomy on R 2004 renal cell cancer; partial nephrectomy on L 2007 Hyperlipidemia (Acute) History of elevated PSA (Acute) Per [facility] Records--01/14/2019 6.41, 04/28/2018 6.32; +Fam hx prostate cancer in F Secondary hyperparathyroidism (Acute ~05/2021) 05/29/21 [facility] [place] [place] Nephrology CKD (chronic kidney disease) stage 4, GFR 15-29 ml/min (Acute) Diabetic peripheral neuropathy (Chronic) B12 deficiency (Acute) Alcohol use disorder (Chronic) Lamellar macular hole of both eyes (Acute 10/25/21) Type 1 diabetes, controlled, with neuropathy (Chronic ~05/2017) Adult onset, diagnosed 05/2017 [facility] Endo Dr. Douglas--recommend GLP1 Personal goal A1C <7% Family history of prostate cancer (Chronic) F Hypertension (Chronic) RX Lisinopril (stopped due to creatinine) Medical History (Updated 02/16/24 @ 12:58 by David Urena DO) History of Yodit's gangrene Microcytic anemia Sinus tachycardia Fever Thrombosis superficial vein, arm, acute Gallstones Kidney lesion, [place], left Colitis due to Clostridium difficile Skin ulcer of scrotum (~2022) De Quervain's tenosynovitis, left 40 mg Depo-Medrol injection: 04/04/2022 Metabolic acidosis Alcohol intoxication (~12/02/21) Osteoarthritis of elbows, bilateral Lesion of bone of left forearm proximal radius lesion Tubular adenoma of colon 08/2018 colonoscopy [facility] GI; recall 5y History of alcohol use disorder since 1989 with intermittent sobriety History of opioid abuse s/p surgeries; visiting brother 08/2021 ([facility] admission) History of renal cell cancer s/p nephrectomy Chronic gingivitis, plaque induced Dentist Bilateral carpal tunnel syndrome Polyneuropathy associated with underlying disease DM Surgical History H/O skin graft [facility] [place] [place] 07/12/22 Scrotal Abscess 07/15/22 Skin Graft with Bolster removal H/O arthroscopy of knee Remotely--both knees at some point; he cannot recall what, but thinks meniscal History of nephrectomy, right (~03/2004) Renal cell cancer H/O partial nephrectomy (~04/2007) left Family History Mother , 54yo breast cancer Alcohol abuse Breast cancer Depression Substance abuse Father , ~70yo prostate cancer Alcohol abuse Prostate cancer Substance abuse Sister , throat caner (nicotine use) Alcohol abuse Cancer Cervical Substance abuse Social History Smoking/Tobacco Use Status: Never Smoking risk assessment performed?: Yes Alcohol Intake: current Alcohol Intake frequency: a few times a month Previous attempts at quittin Counseling given: Yes ([facility]) Drug use: Never Substance use type: opiates Details: no IV drug use Adopted: No Caregiver/Support person: No Foster care: No Household members: other Details: Sober Living Facility Housing: house Number of Children: 4 number of grandchildren: 4 Communication Needs: None Education Level: college Do you need help understanding health information?: Rarely 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) Pets and animals: Yes Pets and animals: cat(s) Sexually active: No Do you think of yourself as: straight/heterosexual Current gender identity: male What is your relationship status?: How often do you talk on the phone with friends or family?: three or more times per week How often do you get together with friends or relatives?: three or more times per week How often do you attend gnosticist or zoroastrianism services?: 4 or more times per year Do you belong to any clubs or organized social groups?: no Panel score (0-1 are the most socially isolated patients): 2 What type of physical activity do you participate in: walking, bicycling and other Details: EXERCISE ON STATIONARY BIKE Duration: < 15 minutes/day Frequency: 3-4 times per week Erin/Congregational: Adventism Agree to transfusion: No Seatbelt use: always Helmet use: Yes Drive intox or ride w/intox driver license technician: No Water heater temp set <120 deg: Yes Working smoke detector in home: Yes Fire extinguisher in home: Yes Do you feel safe at home: Yes Do you feel safe in your relationship?: Yes
[2024-02-16 11:26] LABS: Lactate 2.1 mmol/L (0.6-1.4)
[2024-02-16 11:31] LABS: Ammonia 16 umol/L (11-32)
[2024-02-16 11:40] LABS: ALT 24 U/L (16-63); AST 20 U/L (15-37); Albumin 3.2 g/dL (3.4-5.0); Alkaline Phosphatase 110 U/L (46-116); Anion Gap 12.2 mmol/L (3-11); BUN 57 mg/dL (7-18); Bilirubin, Total 0.78 mg/dL (0.2-1.0); CO2 21.8 mmol/L (21.0-32.0); CREATININE 3.3 mg/dL (0.70-1.30); Calcium 8.9 mg/dL (8.5-10.1); Chloride 102 mmol/L (98-107); Estimated GFR 20.06 (mL/min/1.73m2); Glucose 352 mg/dL (74-106); Magnesium 1.5 mg/dL (1.8-2.4); Potassium 5.8 mmol/L (3.5-5.1); Sodium 136 mmol/L (136-145); Total Protein 7.6 g/dL (6.4-8.2)
[2024-02-16 11:43] LABS: PTT Activated 26.5 sec (23.6-32.8); Prothrombin Time 10.1 sec (9.1-11.1)
[2024-02-16] MEDS: MULTIVITAMIN 10 ML, THIAMINE 100 MG, FOLIC ACID 1 MG in DEXTROSE 5%-0.45% SALINE 1,000 ML 42 ML IV (11:48)
[2024-02-16] MEDS: Normal Saline 1,000 ML 1000 ML IV (11:48)
[2024-02-16 11:51] LABS: Lipase 58 U/L (<78); TSH (W/Ref FT4) 0.99 uIU/mL (0.36-3.74)
[2024-02-16 12:03] LABS: *AMPHETAMINES SCREEN URINE Negative (Negative); *BARBITURATES SCREEN URINE Negative (Negative); *BENZODIAZEPINES SCREEN URINE Negative (Negative); Cannabinoids THC Negative (Negative); Cocaine Screen,Urine Negative (Negative); METHADONE URINE SCREEN Negative (Negative); OPIATES URINE SCREEN Negative (Negative); Tricyclic Antidepressants Negative (Negative)
[2024-02-16] MEDS: MAGNESIUM SULFATE 2 GM/50 ML BAG IV_INF (12:05)
[2024-02-16] MEDS: Dextrose 50%-Water 25 GM/50 ML SYR IVP (12:05)
[2024-02-16] MEDS: Insulin REGULAR-Human 100 UNITS/ML UNIT IV (12:07)
[2024-02-16] MEDS: Calcium Gluconate 4.65 MEQ/10 ML VIAL 4.65 MG IVP (12:14)
[2024-02-16] MEDS: Albuterol 2.5 MG/3 ML INH SOLN VIAL 5 MG UPD (12:15)
[2024-02-16] MEDS: Normal Saline 10 ML VIAL IJ (12:16)
[2024-02-16] MEDS: Normal Saline Flush 10 ML SYR IVP (14:13)
--- NOTE | 2024-02-16 14:26 | HPE_ITS ---
Date of service: 02/16/24 Time of Service: 14:26 Assessment and Plan Assessment and plan (1) Alcohol use disorder: Status: Chronic Assessment and plan: admitted to the icu with the phenobarbitol protocol as well as thiamine. Monitor for improvements CIWA protocol (2) DTs (delirium tremens): Status: Acute Assessment and plan: as above (3) Hypertension: Status: Chronic Assessment and plan: restarted home meds and will monitor (4) Hyperlipidemia: Status: Acute Assessment and plan: restart home meds atorvastatin (5) Type 2 diabetes mellitus with mild nonproliferative diabetic retinopathy without macular edema, bilateral: Status: Acute Assessment and plan: restarted aspart and glargine (6) B12 deficiency: Status: Acute (7) CKD (chronic kidney disease) stage 4, GFR 15-29 ml/min: Status: Acute Assessment and plan: h/o CKD 2/2 single kidney. Stable History of Present Illness History of Present Illness Chief Complaint: alcohol withdrawl Narrative: This is a 63-year-old gentleman who has had multiple episodes of delirium tremors including 1 episode of seizures approximately 3 years ago after withdrawing from alcohol who presents to the ED stating that he is trying to stop drinking and states his last drink was approximately 12 hours ago. On admission the patient CIWA protocol was over 20 and the patient was started on phenobarbital for EtOH withdrawal by the ED physician Dr. Urena. Dr. Urena asked that we admit the patient for further evaluation and treatment and we will admit him to the ICU. My discussion with Mr. Pablo he reiterates the history as above. Of note, the patient was seen here in January for essentially the same issue. Patient states there was no specific inciting event on the reason he started drinking again but has had significant periods of sobriety in the past. It was noted that the patient did have elevated creatinine but further history indicates that he had a nephrectomy done secondary to a history of renal cell carcinoma. The patient was also treated for hyperkalemia in the ED with calcium carbonate, albuterol, insulin and D5 half-normal saline. Review of Systems All systems reviewed & are unremarkable except as noted in HPI and below PFSH All Active Problems (Updated 02/16/24 @ 12:58 by David Urena DO) Hypomagnesemia (Acute) Acute hyperkalemia (Acute) DTs (delirium tremens) (Acute) Diverticula of colon (Acute) Melena (Acute) Single kidney (Acute) Steatosis (Acute) Age-related nuclear cataract, bilateral (Acute ~10/03/23) [place] Type 2 diabetes mellitus with mild nonproliferative diabetic retinopathy without macular edema, bilateral (Acute ~10/03/23) [place] Misuse of prescription only drugs (Acute ~03/2023) RX Gabapentin Solitary left kidney (Acute) [facility] Nephro (initial 07/2020); s/p nephrectomy on R 2004 renal cell cancer; partial nephrectomy on L 2007 Hyperlipidemia (Acute) History of elevated PSA (Acute) Per [facility]--01/14/2019 6.41, 04/28/2018 6.32; +Fam hx prostate cancer in F Secondary hyperparathyroidism (Acute ~05/2021) 05/29/21 [facility] Nephrology CKD (chronic kidney disease) stage 4, GFR 15-29 ml/min (Acute) Diabetic peripheral neuropathy (Chronic) B12 deficiency (Acute) Alcohol use disorder (Chronic) Lamellar macular hole of both eyes (Acute 10/25/21) Type 1 diabetes, controlled, with neuropathy (Chronic ~05/2017) Adult onset, diagnosed 05/2017 [facility] Endo Dr. Douglas--recommend GLP1 Personal goal A1C <7% Family history of prostate cancer (Chronic) F Hypertension (Chronic) RX Lisinopril (stopped due to creatinine) Medical History (Updated 02/16/24 @ 12:58 by David Urena DO) History of Yodit's gangrene Microcytic anemia Sinus tachycardia Fever Thrombosis superficial vein, arm, acute Gallstones Kidney lesion, [place], left Colitis due to Clostridium difficile Skin ulcer of scrotum (~2022) De Quervain's tenosynovitis, left 40 mg Depo-Medrol injection: 04/04/2022 Metabolic acidosis Alcohol intoxication (~12/02/21) Osteoarthritis of elbows, bilateral Lesion of bone of left forearm proximal radius lesion Tubular adenoma of colon 08/2018 colonoscopy [facility]; recall 5y History of alcohol use disorder since 1989 with intermittent sobriety History of opioid abuse s/p surgeries; visiting brother 08/2021 ([facility] admission) History of renal cell cancer s/p nephrectomy Chronic gingivitis, plaque induced 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 Bilateral carpal tunnel syndrome Polyneuropathy associated with underlying disease DM Surgical History H/O skin graft [facility] 07/12/22 Scrotal Abscess 07/15/22 Skin Graft with Bolster removal H/O arthroscopy of knee Remotely--both knees at some point; he cannot recall what, but thinks meniscal History of nephrectomy, right (~03/2004) Renal cell cancer H/O partial nephrectomy (~04/2007) left Family History Mother , 54yo breast cancer Alcohol abuse Breast cancer Depression Substance abuse Father , ~70yo prostate cancer Alcohol abuse Prostate cancer Substance abuse Sister , throat caner (nicotine use) Alcohol abuse Cancer Cervical Substance abuse Social History Smoking/Tobacco Use Status: Never Smoking risk assessment performed?: Yes Alcohol Intake: current Alcohol Intake frequency: a few times a month Previous attempts at quittin Counseling given: Yes ([employer] AT [facility]) Drug use: Never Substance use type: opiates Details: no IV drug use Adopted: No Caregiver/Support person: No Foster care: No Household members: other Details: [facility] Housing: house Number of Children: 4 number of grandchildren: 4 Communication Needs: None Education Level: college Do you need help understanding health information?: Rarely 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) Pets and animals: Yes Pets and animals: cat(s) Sexually active: No Do you think of yourself as: straight/heterosexual Current gender identity: male What is your relationship status?: How often do you talk on the phone with friends or family?: three or more times per week How often do you get together with friends or relatives?: three or more times per week How often do you attend buddhist or sikhism services?: 4 or more times per year Do you belong to any clubs or organized social groups?: no Panel score (0-1 are the most socially isolated patients): 2 What type of physical activity do you participate in: walking, bicycling and other Details: EXERCISE ON STATIONARY BIKE Duration: < 15 minutes/day Frequency: 3-4 times per week Erin/Rastafarian: Yazidism Agree to transfusion: No Seatbelt use: always Helmet use: Yes Drive intox or ride w/intox driver guard: No Water heater temp set <120 deg: Yes Working smoke detector in home: Yes Fire extinguisher in home: Yes Do you feel safe at home: Yes Do you feel safe in your relationship?: Yes Meds Allergies and Home Medications Allergies Allergy/AdvReac Type Severity Reaction Status Date / Time lactose intolerant AdvReac Mild Diarrhea Uncoded 02/16/24 10:44 Home Medications ?Medication ?Instructions ?Recorded ?Confirmed ?Type lancets 08/03/20 02/16/24 History blood-glucose meter,continuous #1 ea 08/26/22 02/16/24 Rx (Dexcom G7 Computer Systems Administrator) blood-glucose sensor (Dexcom G7 #1 ea 08/26/22 02/16/24 Rx Sensor device) multivitamin (Multiple Vitamins 1 tab PO QAM #0 tabs 09/10/22 02/16/24 Rx tablet) acetaminophen 325 mg capsule 650 mg PO Q4H PRN 11/13/22 02/16/24 History lisinopril 5 mg tablet 2.5 mg PO DAILY 11/13/22 02/16/24 History atorvastatin 20 mg tablet See Rx Instructions .Route 11/29/22 02/16/24 Rx .COMPLEX #90 tabs blood sugar diagnostic (Embrace 11/29/22 02/16/24 History DELLA test strips) blood sugar diagnostic (OneTouch #400 strips 12/02/22 02/16/24 Rx Verio test strips) pen needle, diabetic 32 gauge x #360 ea 02/11/23 02/16/24 Rx (Unifine Pentips Plus) insulin glargine U-300 conc 300 28 unit (0.0933 mL) subcut QPM #30 07/12/23 02/16/24 Rx unit/mL (3 mL) subcutaneous pen mL (Toujeo Max U-300 SoloStar) duloxetine 30 mg capsule,delayed See Rx Instructions .Route 08/04/23 02/16/24 Rx release .COMPLEX #90 caps duloxetine 60 mg capsule,delayed See Rx Instructions .Route 08/04/23 02/16/24 Rx release .COMPLEX #90 caps metoprolol succinate 25 mg See Rx Instructions .Route 08/18/23 02/16/24 Rx tablet,extended release 24 hr .COMPLEX #270 tabs insulin aspart 1 sliding scale dose subcut 08/26/23 02/16/24 Rx (niacinamide)(U-100) 100 unit/mL(3 USEASDIRECTD #15 mL mL) subcutaneous pen (Fiasp FlexTouch U-100 Insulin) naltrexone 50 mg tablet 50 mg PO DAILY #90 tabs 01/11/24 02/16/24 Rx Exam Narrative Exam Narrative: HEENT: Normocephalic atraumatic mucous membranes moist oropharynx clear extra motions are intact Neck: No lymphadenopathy no JVD no thyroid megaly Cardiovascular: Tachycardia but no murmur rubs gallops Pulm: Clear to auscultation bilaterally with good air exchange Abdomen: Soft nontender nondistended bowel sounds active Neurologic: Cranial nerves II through XII intact as tested reflexes in upper lower extremity normal as tested Psych: Responds appropriately to verbal stimuli and is alert and oriented when awake General: Appears her stated age is sleeping but wakes up to verbal stimuli only Results Labs 02/16/24 11:08 02/16/24 11:08 Labs: Laboratory Results - last 24 hr 02/16/24 02/16/24 02/16/24 11:08 11:13 11:43 WBC 8.91 RBC 4.22 L Hgb 12.8 L Hct 38.5 L MCV 91 MCH 30.3 MCHC 33.2 RDW 13.3 Plt Count 237 MPV 10.0 Immature Gran % 0.8 Neutrophils % 80.1 Lymphocytes % 10.0 Monocytes % 6.3 Eosinophils % 2.4 Basophils % 0.4 Nucleated RBC % 0.0 Absolute Neutrophils 7.14 H Absolute Lymphocytes 0.89 L Absolute Monocytes 0.56 Absolute Eosinophils 0.21 Absolute Basophils 0.04 PT 10.1 INR 1.0 APTT 26.5 VBG pH 7.34 VBG pCO2 40 L VBG pO2 42 VBG HCO3 22 L VBG Total CO2 20 L VBG O2 Saturation 78 VBG Base Excess -4 L VBG Lactate 2.1 H Sodium 136 Potassium 5.8 H Chloride 102 Carbon Dioxide 21.8 Anion Gap 12.2 H BUN 57 H Creatinine 3.3 H Est GFR (CKD-EPI 2020) 20.06 Glucose 352 H Calcium 8.9 Magnesium 1.5 L Total Bilirubin 0.78 AST 20 ALT 24 Alkaline Phosphatase 110 Ammonia 16 Total Protein 7.6 Albumin 3.2 L Lipase 58 TSH 0.99 Urine Opiates Screen Negative Urine Methadone Screen Negative Ur Barbiturates Screen Negative Ur Tricyclics Screen Negative Ur Amphetamines Screen Negative U Benzodiazepines Scrn Negative Urine Cocaine Screen Negative Ur THC Screen Negative Last Vital Signs Temp 37.0 C 02/16/24 10:22 Pulse 115 H 02/16/24 13:02 Resp 21 02/16/24 14:18 BP 162/95 H 02/16/24 13:02 Pulse Ox 95 02/16/24 14:18 Time Spent Time spent with Patient: 40-54 minutes Time was spent: preparing to see the patient(eg.review tests), obtaining and/or reviewing separately otained hiistory, ordering medications,tests, procedures, referring, communicating with other health customer care agent, indepentently interpreting results, counseling the patient and care coordination
--- NOTE | 2024-02-16 14:54 | W.PC.ACHO ---
Registration Status: Primary Language: Preferred Language: ED Information & Data Chief Complaint DrugWithdr/MAT 02/16/24 11:26 Triage Note Tremors, auditory 02/16/24 10:22 hallucinations (music), tachycardia, hypertension. Hx of DTs. Last drink 10+ hours ago. Reports history of seizures with detox. Medical / Surgical History (Last Updated 01/08/24 @ 19:31 by Edelmira Hay DO) History of Yodit's gangrene Microcytic anemia Sinus tachycardia Fever Thrombosis superficial vein, arm, acute Gallstones Kidney lesion, [place], left Colitis due to Clostridium difficile Skin ulcer of scrotum (~2022) De Quervain's tenosynovitis, left Metabolic acidosis Alcohol intoxication (~12/02/21) Osteoarthritis of elbows, bilateral Lesion of bone of left forearm Tubular adenoma of colon History of alcohol use disorder History of opioid abuse History of renal cell cancer Chronic gingivitis, plaque induced Bilateral carpal tunnel syndrome Polyneuropathy associated with underlying disease (Last Reviewed 01/08/24 @ 15:14 by Skinny Cage MD) H/O skin graft H/O arthroscopy of knee History of nephrectomy, right (~03/2004) H/O partial nephrectomy (~04/2007) Most Recent Vital Signs Temperature 37.0 C 02/16/24 10:22 Pulse 115 H 02/16/24 13:02 Pulse 115 H 02/16/24 13:10 Respiratory Rate 21 02/16/24 14:18 Respiratory Effort Normal, Non-Labored 02/16/24 14:18 Respiratory Depth Normal 02/16/24 14:18 Respiratory Pattern Normal 02/16/24 14:27 Blood Pressure 162/95 H 02/16/24 13:02 Blood Pressure Mean 113 02/16/24 13:02 Blood Pressure Position Sitting 02/16/24 10:22 Pulse Oximetry 95 02/16/24 14:18 Oxygen Delivery Method Nasal Cannula 02/16/24 14:18 Oxygen Flow Rate 2 02/16/24 14:18 Pain Level 0 02/16/24 14:18 Allergies lactose intolerant Adverse Reaction (Mild, Uncoded 02/16/24 10:44) Diarrhea Active Medications Generic Name Dose Route Start Last Admin Trade Name Freq PRN Reason Stop Dose Admin Multivitamins 10 ml/ Thiamine 1,011.2 mls @ 42 mls/hr 02/16/24 10:33 02/16/24 11:48 HCl 100 mg/ Folic Acid 1 mg/ IV 02/17/24 10:37 42 mls/hr Dextrose/Sodium Chloride DAILY STA Administration Sodium Chloride 0 ml 02/16/24 20:00 02/16/24 14:13 Normal Saline Flush 10 Ml Syr IVP 10 ml BID BONG Administration Sodium Chloride 0 ml 02/16/24 10:33 02/16/24 12:16 Normal Saline 10 Ml Vial IJ 50 ml DIRECTED PRN Administration IV IV Catheter Type [Right Peripheral IV Antecubital] IV Catheter Type [Left Peripheral IV Antecubital] IV Catheter Gauge [Right 18 Antecubital] IV Catheter Gauge [Left 20 Antecubital] Diet Orders Category Date Time Status Diabetes Consistent CHO/Low Na [DIET] Nutrition 02/16/24 Dinner Active Diagnostics 02/16/24 02/16/24 02/16/24 Range/Units 11:43 11:13 11:08 WBC 8.91 (4.4-10.8) 10^3/uL RBC 4.22 L (4.36-5.78) 10^6/uL Hgb 12.8 L (13.5-17.5) g/dL Hct 38.5 L (40.0-50.0) % MCV 91 (80-95) fL MCH 30.3 (27.0-33.0) pg MCHC 33.2 (32.0-36.0) % RDW 13.3 (11.8-14.1) % Plt Count 237 (130-400) 10^3/uL MPV 10.0 (8.0-11.0) fL Immature Gran % 0.8 % Neutrophils % 80.1 % Lymphocytes % 10.0 % Monocytes % 6.3 % Eosinophils % 2.4 % Basophils % 0.4 % Nucleated RBC % 0.0 (0.0-0.3) % Absolute Neutrophils 7.14 H (1.2-6.7) 10^3/uL Absolute Lymphocytes 0.89 L (1.2-3.4) 10^3/uL Absolute Monocytes 0.56 (0.1-0.8) 10^3/uL Absolute Eosinophils 0.21 (0.0-0.7) 10^3/uL Absolute Basophils 0.04 (0.0-0.2) 10^3/uL PT 10.1 (9.1-11.1) sec INR 1.0 (0.9-1.1) APTT 26.5 (23.6-32.8) sec VBG pH 7.34 (7.31-7.41) VBG pCO2 40 L (41-51) mmHg VBG pO2 42 mmHg VBG HCO3 22 L (23-28) mmol/L VBG Total CO2 20 L (24-29) mmol/L VBG O2 Saturation 78 % VBG Base Excess -4 L (-2-3) mmol/L VBG Lactate 2.1 H (0.6-1.4) mmol/L Sodium 136 (136-145) mmol/L Potassium 5.8 H (3.5-5.1) mmol/L Chloride 102 (98-107) mmol/L Carbon Dioxide 21.8 (21.0-32.0) mmol/L Anion Gap 12.2 H (3-11) mmol/L BUN 57 H (7-18) mg/dL Creatinine 3.3 H (0.70-1.30) mg/dL Est GFR (CKD-EPI 2020) 20.06 (mL/min/1.73m2) Glucose 352 H (74-106) mg/dL Calcium 8.9 (8.5-10.1) mg/dL Magnesium 1.5 L (1.8-2.4) mg/dL Total Bilirubin 0.78 (0.2-1.0) mg/dL AST 20 (15-37) U/L ALT 24 (16-63) U/L Alkaline Phosphatase 110 (46-116) U/L Ammonia 16 (11-32) umol/L Total Protein 7.6 (6.4-8.2) g/dL Albumin 3.2 L (3.4-5.0) g/dL Lipase 58 (<78) U/L TSH 0.99 (0.36-3.74) uIU/mL Urine Opiates Screen Negative (Negative) Urine Methadone Screen Negative (Negative) Ur Barbiturates Screen Negative (Negative) Ur Tricyclics Screen Negative (Negative) Ur Amphetamines Screen Negative (Negative) U Benzodiazepines Scrn Negative (Negative) Urine Cocaine Screen Negative (Negative) Ur THC Screen Negative (Negative) [id number] Documentation Fingerstick Glucose Start: 12/16/24 12:11 Freq: Status: Active Protocol: Activity Type Activity Date Activity User E-sign Co-sign Detail Recorded Client Recorded Date Recorded By Document 02/16/24 14:39 BKG DAEMON(3) [id number] 02/16/24 14:40 BKG DAEMON(4) Intake and Output - 24 Hour Total 02/16/24 10:19 thru 02/16/24 14:05 Intake Total 1112.3077 Output Total 200 Balance 912.3077 Weight 117.934 kg Intake: IV 1112.3077 Output: Urine 200 Falls Risk Assessment History of Falls No History 02/16/24 10:42 Contributing Factors Impairments 02/16/24 10:42 Ambulatory Aids Independent 02/16/24 10:42 Gait Evaluation W/no contributing factors 02/16/24 10:42 Fall Total Score 13 02/16/24 10:42 Level of Risk Standard/Low Risk 02/16/24 10:42 Problems (Last Updated 01/08/24 @ 19:31 by Edelmira Hay DO) DTs (delirium tremens) (Acute) Type 2 diabetes mellitus with mild nonproliferative diabetic retinopathy without macular edema, bilateral (Acute ~10/03/23) Hyperlipidemia (Acute) CKD (chronic kidney disease) stage 4, GFR 15-29 ml/min (Acute) B12 deficiency (Acute) Alcohol use disorder (Chronic) Hypertension (Chronic) v v v v v v v v v Sending and/or Receiving Nurses: Please use comment section below to note any information pertinent to the patient hand-off not included above. Information / Comments: Report received from: Gill Blanton RN
[2024-02-16] MEDS: DULoxetine 30 MG CAP 60 MG PO (21:08)
[2024-02-16] MEDS: Atorvastatin 20 MG TAB PO (21:08)
[2024-02-16] MEDS: Metoprolol CR 25 MG TABCR 75 MG PO (21:09)
[2024-02-17] VITALS (41 sets, daily range): BP systolic 89–155; BP diastolic 48–105; PULSE 69–113; RESP 0–36; TEMP 36.4–36.7; O2SAT 86–99
[2024-02-17 06:43] LABS: Abs Immature Grans 0.08 10^3/uL (0.0-0.06); Absolute Basophil Count 0.02 10^3/uL (0.0-0.2); Absolute Eosinophil Count 0.36 10^3/uL (0.0-0.7); Absolute Lymphocyte Count 1.28 10^3/uL (1.2-3.4); Absolute Monocyte Count 0.65 10^3/uL (0.1-0.8); Absolute Neutrophil Count 5.94 10^3/uL (1.2-6.7); Basophils % 0.2 %; Eosinophils % 4.3 %; HCT 37.3 % (40.0-50.0); HGB 11.9 g/dL (13.5-17.5); Lymphocytes % 15.4 %; MCH 29.7 pg (27.0-33.0); MCHC 31.9 % (32.0-36.0); MCV 93 fL (80-95); MPV 10.3 fL (8.0-11.0); Monocytes % 7.8 %; Neutrophils % 71.3 %; Platelet Count 229 10^3/uL (130-400); RBC 4.01 10^6/uL (4.36-5.78); RDW 13.2 % (11.8-14.1); RDW-SD 45.8 fL; WBC 8.33 10^3/uL (4.4-10.8)
[2024-02-17 06:55] LABS: ALT 24 U/L (16-63); AST 16 U/L (15-37); Albumin 2.8 g/dL (3.4-5.0); Alkaline Phosphatase 97 U/L (46-116); Anion Gap 9.6 mmol/L (3-11); BUN 45 mg/dL (7-18); Bilirubin, Total 0.65 mg/dL (0.2-1.0); CO2 24.4 mmol/L (21.0-32.0); CREATININE 2.6 mg/dL (0.70-1.30); Calcium 8.1 mg/dL (8.5-10.1); Chloride 104 mmol/L (98-107); Glucose 261 mg/dL (74-106); Potassium 4.9 mmol/L (3.5-5.1); Sodium 138 mmol/L (136-145); Total Protein 6.7 g/dL (6.4-8.2)
[2024-02-17] MEDS: Normal Saline Flush 10 ML SYR IVP ×2 (08:37→20:00)
[2024-02-17] MEDS: PHENobarbital 130 MG/ML VIAL IVP ×2 (08:37→11:34)
[2024-02-17] MEDS: DULoxetine 30 MG CAP PO (08:44)
[2024-02-17] MEDS: Thiamine 100 MG TAB PO (08:44)
[2024-02-17] MEDS: Multivitamin TAB 1 TAB PO (08:44)
[2024-02-17] MEDS: Naltrexone 50 MG TAB PO (08:44)
[2024-02-17] MEDS: Lisinopril 5 MG TAB 2.5 MG PO (08:45)
[2024-02-17] MEDS: Insulin Aspart 300 UNITS/3 ML PEN SC ×3 (09:00→20:09)
--- NOTE | 2024-02-17 09:42 | INITIAL_ITS ---
Date of service: 02/17/24 Time of Service: 09:42 Care Management Initial Assmt Initial Assessment Reason for Hospitalization: ETOH withdrawal Functional Status/Living Situation Patient Presentation: Mina was lying in bed in the ICU when CM met with him. He was polite and agreeable to conversation but stated that he was not feeling well. Mina was admitted with alcohol withdrawal. He informed CM that he was supposed to move into [facility] today but ended up hospitalized due to his symptoms. He has had withdrawal seizures in the past and required medication and close monitoring. Mina has 3 daughters and 4 grandchildren, all of whom live out of state but are very close and supportive. 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 He is independent at baseline and does not receive any community services. Town of Residence: [facility] Resides with: Spouse Significant Other/Family: Out of area (daughters in [facility] and [place] Employment Status: Disabled Instrumental Activities of Daily Living (ADLs): Independent Medications Medication Management: No Issues/Barriers identified Physical Functioning/Mobility Assistive Device: none Advance Directives Advance Directives: Do you have an Advance Directive: N 09/06/20 13:01 AD On File at [facility]: N 09/06/20 13:01 Date Asked 01/08/24 01/08/24 13:43 AD Date Reviewed COLST On File at [facility] No 10/19/22 17:49 COLST Date Scanned Code Status Resuscitation Status Full Code Insurance Coverage/Financial Issues Insurance: [facility] Care Team Visit Care Team Role Provider Type Mel Llamas NP Primary Care Provider NURSE PRACTITIONER [facility] Other Providers OTHER David Urena DO Emergency Provider [facility] STAFF PHYSICIAN John Peñaloza MD Admit Provider [facility] STAFF PHYSICIAN Attending Provider Discharge Potential Discharge Needs: PCP F/U Appt Anticipated Barriers to Discharge: None Identified Patient/Family Education Needs: Review discharge instructions, discuss Ask Me Three Transportation: Private vehicle Plan: Anticipate Mina will be discharged home with no new services when medically cleared. He will follow up with his PCP and plan of care and transport with family. CM will follow and continue to support discharge planning efforts. PFSH All Active Problems (Updated 02/16/24 @ 15:02 by CAMACHO VELÁSQUEZ) Hypomagnesemia (Acute) Acute hyperkalemia (Acute) DTs (delirium tremens) (Acute) Diverticula of colon (Acute) Melena (Acute) Single kidney (Acute) Steatosis (Acute) Age-related nuclear cataract, bilateral (Acute ~10/03/23) [place] Type 2 diabetes mellitus with mild nonproliferative diabetic retinopathy without macular edema, bilateral (Acute ~10/03/23) [place] Misuse of prescription only drugs (Acute ~03/2023) RX Gabapentin Solitary left kidney (Acute) [facility] [place] (initial 07/2020); s/p nephrectomy on R 2004 renal cell cancer; partial nephrectomy on L 2007 Hyperlipidemia (Acute) History of elevated PSA (Acute) Per [place] Records--01/14/2019 6.41, 04/28/2018 6.32; +Fam hx prostate cancer in F Secondary hyperparathyroidism (Acute ~05/2021) 05/29/21 [facility] [place]phrology CKD (chronic kidney disease) stage 4, GFR 15-29 ml/min (Acute) Diabetic peripheral neuropathy (Chronic) B12 deficiency (Acute) Alcohol use disorder (Chronic) Lamellar macular hole of both eyes (Acute 10/25/21) Type 1 diabetes, controlled, with neuropathy (Chronic ~05/2017) Adult onset, diagnosed 05/2017 [facility] Endo Dr. Douglas--recommend GLP1 Personal goal A1C <7% Family history of prostate cancer (Chronic) F Hypertension (Chronic) RX Lisinopril (stopped due to creatinine) Medical History (Updated 02/16/24 @ 15:02 by CAMACHO VELÁSQUEZ) History of Yodit's gangrene Microcytic anemia Sinus tachycardia Fever Thrombosis superficial vein, arm, acute Gallstones Kidney lesion, [place], left Colitis due to Clostridium difficile Skin ulcer of scrotum (~2022) De Quervain's tenosynovitis, left 40 mg Depo-Medrol injection: 04/04/2022 Metabolic acidosis Alcohol intoxication (~12/02/21) Osteoarthritis of elbows, bilateral Lesion of bone of left forearm proximal radius lesion Tubular adenoma of colon 08/2018 colonoscopy [facility]; recall 5y History of alcohol use disorder since 1989 with intermittent sobriety History of opioid abuse s/p surgeries; visiting brother 08/2021 ([facility] admission) History of renal cell cancer s/p nephrectomy Chronic gingivitis, plaque induced Dentist Bilateral carpal tunnel syndrome Polyneuropathy associated with underlying disease DM Surgical History H/O skin graft [facility] 07/12/22 Scrotal Abscess 07/15/22 Skin Graft with Bolster removal H/O arthroscopy of knee Remotely--both knees at some point; he cannot recall what, but thinks meniscal History of nephrectomy, right (~03/2004) Renal cell cancer H/O partial nephrectomy (~04/2007) left Family History Mother , 54yo breast cancer Alcohol abuse Breast cancer Depression Substance abuse Father , ~70yo prostate cancer Alcohol abuse Prostate cancer Substance abuse Sister , throat caner (nicotine use) Alcohol abuse Cancer Cervical Substance abuse Social History Smoking/Tobacco Use Status: Never Smoking risk assessment performed?: Yes Alcohol Intake: current Alcohol Intake frequency: a few times a month Previous attempts at quittin Counseling given: Yes ([facility]) Drug use: Never Substance use type: opiates Details: no IV drug use Adopted: No Caregiver/Support person: No Foster care: No Household members: other Details: Sober Living Facility Housing: house Number of Children: 4 number of grandchildren: 4 Communication Needs: None Education Level: college Do you need help understanding health information?: Rarely 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) Pets and animals: Yes Pets and animals: cat(s) Sexually active: No Do you think of yourself as: straight/heterosexual Current gender identity: male What is your relationship status?: How often do you talk on the phone with friends or family?: three or more times per week How often do you get together with friends or relatives?: three or more times per week How often do you attend buddhism or rastafari services?: 4 or more times per year Do you belong to any clubs or organized social groups?: no Panel score (0-1 are the most socially isolated patients): 2 What type of physical activity do you participate in: walking, bicycling and other Details: EXERCISE ON STATIONARY BIKE Duration: < 15 minutes/day Frequency: 3-4 times per week Erin/Mormonism: Protestant Agree to transfusion: No Seatbelt use: always Helmet use: Yes Drive intox or ride w/intox recycling collections driver: No Water heater temp set <120 deg: Yes Working smoke detector in home: Yes Fire extinguisher in home: Yes Do you feel safe at home: Yes Do you feel safe in your relationship?: Yes SDOH(Care Management) Screening Will the Patient Participate in the Screening?: Yes Do you worry about having a steady place to live?: no Problems where you live: no known problems In the past 12 months, have you had to go without electric, gas, oil or water in your home?: no Have you or anyone in your house had to go without enough food to eat?: no Has lack of transportation kept you from medical appointments or from doing things needed for daily living?: no Has anyone in your support network made you feel unsafe for any reason?: no
[2024-02-17] MEDS: Acetaminophen 325 MG TAB 650 MG PO ×2 (11:32→20:15)
--- NOTE | 2024-02-17 12:40 | PGE_ITS ---
Date of Service Date of service: 02/17/24 Time of Service: 12:40 Assessment and Plan Assessment and plan (1) Alcohol use disorder: Status: Chronic Assessment and plan: admitted to the icu with the phenobarbitol protocol as well as thiamine. Monitor for improvements CIWA protocol 02/17/24. Still with elevations in his CIWA protocol. Getting close to the hard stop per protocol for phenobarbital. Also on thiamine (2) DTs (delirium tremens): Status: Acute Assessment and plan: as above (3) Hypertension: Status: Chronic Assessment and plan: restarted home meds and will monitor 02/17/24 Pt on lisinopril at home but held here 2/2 jj. Pt also on metoprolol. Will not make any changes at this time as there is certainly a component of etoh w/d causing elevations in his bp (4) Hyperlipidemia: Status: Acute Assessment and plan: restart home meds atorvastatin (5) Type 2 diabetes mellitus with mild nonproliferative diabetic retinopathy without macular edema, bilateral: Status: Acute Assessment and plan: restarted aspart and glargine (6) B12 deficiency: Status: Acute (7) CKD (chronic kidney disease) stage 4, GFR 15-29 ml/min: Status: Acute Assessment and plan: h/o CKD 2/2 single kidney. Stable 02/17/24 Renal fx has improved with bun/cr at 45/2.6 respectively Subjective Subjective Interval history since last seen: Pt seen and examined in his room. POC discussed with pt as well as bedside nurse and during MDR. Pt did complain of a bitemporal head ache but was sleeping soundly when I saw him this am Exam Narrative Exam Narrative: HEENT: Normocephalic atraumatic mucous membranes moist oropharynx clear extra motions are intact Neck: No lymphadenopathy no JVD no thyroid megaly Cardiovascular: Tachycardia but no murmur rubs gallops Pulm: Clear to auscultation bilaterally with good air exchange Abdomen: Soft nontender nondistended bowel sounds active Neurologic: Cranial nerves II through XII intact as tested reflexes in upper lower extremity normal as tested. Non focal neuro exam Psych: Responds appropriately to verbal stimuli and is alert and oriented when awake General: Appears his stated age is sleeping but wakes up to verbal stimuli only Objective Last Vital Signs Temp 36.7 C 02/16/24 17:05 Pulse 82 02/17/24 09:01 Resp 21 02/17/24 09:01 BP 135/82 02/17/24 09:01 Pulse Ox 95 02/17/24 09:01 Laboratory Results - last 24 hr 02/17/24 05:45 WBC 8.33 RBC 4.01 L Hgb 11.9 L Hct 37.3 L MCV 93 MCH 29.7 MCHC 31.9 L RDW 13.2 Plt Count 229 MPV 10.3 Immature Gran % 1.0 Neutrophils % 71.3 Lymphocytes % 15.4 Monocytes % 7.8 Eosinophils % 4.3 Basophils % 0.2 Nucleated RBC % 0.0 Absolute Neutrophils 5.94 Absolute Lymphocytes 1.28 Absolute Monocytes 0.65 Absolute Eosinophils 0.36 Absolute Basophils 0.02 Sodium 138 Potassium 4.9 Chloride 104 Carbon Dioxide 24.4 Anion Gap 9.6 BUN 45 H Creatinine 2.6 H Est GFR (CKD-EPI 2020) 26.70 Glucose 261 H Calcium 8.1 L Total Bilirubin 0.65 AST 16 ALT 24 Alkaline Phosphatase 97 Total Protein 6.7 Albumin 2.8 L PAWSS Have you Been Recently Intoxicated or Drunk Within the Last 30 days?: Yes Have you Ever Experienced Previous Episodes of Alcohol Withdrawal?: Yes Have you ever Experienced Withdrawal Seizures?: Yes Have you ever Experienced Delirium Tremens(DT)s?: Yes Have you ever undergone Alcohol Rehabilitation Treatment (i.e, inpt ot outpatient treatment programs)?: Unable to Obtain Have you ever Experienced Blackouts?: Unable to Obtain Have you ever Combined Alcohol with other Downers within the last 90 days?: Unable to Obtain Have you ever Combined Alcohol with any other Substance of Abuse during the last 90 days?: Unable to Obtain Positive Blood Alcohol level on Presentation? [PCS.BAL]: Yes Evidence of Increased Autonomic Activity (i.e. HR>120, tremor, sweating, agitation, nausea)?: Yes Result: 6 Time Spent with Patient Time Spent with Patient: 35-49 minutes Time was spent: preparing to see the patient(eg.review tests), obtaining and/or reviewing separately otained hiistory, ordering medications,tests, procedures, referring, communicating with other health out of school hours care worker, indepentently interpreting results, counseling the patient and care coordination
--- NOTE | 2024-02-17 15:53 | PT.INNT ---
PT Notes Visit Reasons: etoh wd Patient with lab testing lady when PT tried to see him for evaluation. Nurses Anshul and Marii did add that patient still has some mild delirium and may or may not do well with mobility, recommended for Pt to do not as much for today if at all possible. PT suggested to both nurses that PT will return to possibly work with patient tomorrow for a more productive evaluation.
[2024-02-17 16:01] LABS: PHENOBARBITAL 15.4 ug/mL (15.0-40.0)
[2024-02-17] MEDS: Enoxaparin 40 MG/0.4 ML SYR SC (17:41)
[2024-02-17] MEDS: DULoxetine 30 MG CAP 60 MG PO (20:00)
[2024-02-17] MEDS: Metoprolol CR 25 MG TABCR 75 MG PO (20:00)
[2024-02-17] MEDS: Atorvastatin 20 MG TAB PO (20:00)
[2024-02-17] MEDS: Insulin Glargine 300 UNITS/3 ML PEN 22 UNITS SC (20:06)
[2024-02-17] MEDS: Ondansetron 4 MG/2 ML VIAL IVP (20:15)
[2024-02-18] VITALS (39 sets, daily range): BP systolic 75–117; BP diastolic 41–82; PULSE 67–102; RESP 12–35; TEMP 36.3–37.4; O2SAT 77–99
--- NOTE | 2024-02-18 04:30 | NUR.NOTE ---
Nursing Note: Pt's bp=75/53, asymptomatic, spoke to Dr. Brown, updated on pt.s condition, new orders given, IVF bolus, will be given.
[2024-02-18] MEDS: Normal Saline 500 ML 1000 ML IV (04:38)
[2024-02-18 06:57] LABS: PHENOBARBITAL 18.1 ug/mL (15.0-40.0)
[2024-02-18] MEDS: Thiamine 100 MG TAB PO (08:18)
[2024-02-18] MEDS: Multivitamin TAB 1 TAB PO (08:18)
[2024-02-18] MEDS: DULoxetine 30 MG CAP PO (08:18)
[2024-02-18] MEDS: Naltrexone 50 MG TAB PO (08:18)
[2024-02-18] MEDS: Normal Saline Flush 10 ML SYR IVP ×2 (08:21→21:23)
[2024-02-18] MEDS: Insulin Aspart 300 UNITS/3 ML PEN SC ×3 (11:57→21:02)
--- NOTE | 2024-02-18 12:08 | IN_ITS ---
PT Notes Visit Reasons: etoh wd Physical Therapy Initial Evaluation Date: 02/18/2024 Referring Doctor: Dr. Peñaloza PT Orders: PT CONSULT: PT eval and treat Precautions: Standard, telemetry, monitor for signs of withdrawal Patient Profile/Admitting Diagnosis: Pt is 63 yo male presented to ED on 02/16/24 stating he was trying to stop drinking . CIWA >20 and started on phenobarbital for ETOH withdrawal. Pt also treated for hyperkalemia and Hypomagnesia with IV Fluids. Pt transferred to ICU for medical monitoring PMHX: Hypomagnesemia (Acute) Acute hyperkalemia (Acute) DTs (delirium tremens) (Acute) Diverticula of colon (Acute) Melena (Acute) Single kidney (Acute) Steatosis (Acute) Age-related nuclear cataract, bilateral (Acute ~10/03/23) [place] 2 diabetes mellitus with mild nonproliferative diabetic retinopathy without macular edema, bilateral (Acute ~10/03/23) [place]isuse of prescription only drugs (Acute ~03/2023) RX GabapentinSolitary left kidney (Acute) [facility] [place] Nephro (initial 07/2020); s/p nephrectomy on R 2004 renal cell cancer; partial nephrectomy on L 2007Hyperlipidemia (Acute) History of elevated PSA (Acute) Per [place] Records--01/14/2019 6.41, 04/28/2018 6.32; +Fam hx prostate cancer in FSecondary hyperparathyroidism (Acute ~05/2021) 05/29/21 [facility] Nephrology CKD (chronic kidney disease) stage 4, GFR 15-29 ml/min (Acute) Diabetic peripheral neuropathy (Chronic) B12 deficiency (Acute) Alcohol use disorder (Chronic) Lamellar macular hole of both eyes (Acute 10/25/21) Type 1 diabetes, controlled, with neuropathy (Chronic ~05/2017) Adult onset, diagnosed 05/2017 [facility] Endo Dr. Douglas--recommend GLP1 Personal goal A1C <7%Family history of prostate cancer (Chronic) FHypertension (Chronic) RX Lisinopril (stopped due to creatinine) Medical History (Updated 02/16/24 @ 12:58 by David Urena DO) History of Yodit's gangrene Microcytic anemia Sinus tachycardia Fever Thrombosis superficial vein, arm, acute Gallstones Kidney lesion, [place], left Colitis due to Clostridium difficile Skin ulcer of scrotum (~2022) De Quervain's tenosynovitis, left 40 mg Depo-Medrol injection: 04/04/2022Metabolic acidosis Alcohol intoxication (~12/02/21) Osteoarthritis of elbows, bilateral Lesion of bone of left forearm proximal radius lesionTubular adenoma of colon 08/2018 colonoscopy [facility]; recall 5yHistory of alcohol use disorder since 1989 with intermittent sobrietyHistory of opioid abuse s/p surgeries; visiting brother 08/2021 ([facility] admission)History of renal cell cancer s/p nephrectomyChronic gingivitis, plaque induced DentistBilateral carpal tunnel syndrome Polyneuropathy associated with underlying disease DM Surgical History H/O skin graft [facility] 07/12/22 Scrotal Abscess 07/15/22 Skin Graft with Bolster removal H/O arthroscopy of knee Remotely--both knees at some point; he cannot recall what, but thinks meniscalHistory of nephrectomy, right (~03/2004) Renal cell cancerH/O partial nephrectomy (~04/2007) left Social History/Home Situation:Pt resides in group housing with stairs to enter and a flight of stairs to communal areas. . He is independent without device for ambulation, Independent ADL, light household tasks, driving. 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 Pt reports being active biking and walking. Equipment Owned/DME: none Subjective: Pt reports he feels tremulous on the inside with less visible tremors. He reports he has a dull headache and remains sensitive to the light. He is motivated to get going as he does not want his legs to atrophy. Objective: General Observation: male semi reclined in bed with eyes closed. Easily woke/opened eyes to voice. Pt with mild UE intention tremor initially. No tremor noted throughout session Mental Status:Alert and O x 4 pleasant , cooperative, appreciative of the help. Pain: Left middle finger IP joint and B plantar aspect of feet 4/10 with walking ROM: [] Right Upper Extremity: WNL Left Upper Extremity: WNL except middle finger flexion unable d/t swelling warmth and slight discoloration Right Lower Extremity: WNL except DF 5 degrees Impaired inversion/eversion and toe flexion/extension Left Lower Extremity: WNL except DF to 5 degrees Impaired inversion/eversion and toe flexion/extension Strength: [] Right Upper Extremity: 5/5 Left Upper Extremity: 5/5 except grasp diminished d/t pain Right Lower Extremity:glutes 4/5, quads 4/5, hamstring 3+/5, DF 3/5, PF 3/5 Left Lower Extremity: glutes 4/5, quads 4/5, hamstring 3+/5, DF 3/5, PF 3/5 Sensation: diminished B feet to light touch , prorioception and kinesthetic awareness intact Bed Mobility/Transfers: Supine to sit independent Sit to stand supervision Stand to sit supervision Bed to chair supervision Gait: ambulated 100 feet with FWW with SBA antagic gait pattern d/t pain B plantar aspect of feet and into calves. decreased step length B, impaired /early heel off B, increased lateral wt. shift B, increased WB through BUE to unweight BLE Balance: [] Static Sitting: Normal Dynamic Sitting:Normal Static Standing: Good Dynamic Standing: fair+/Good - Special Tests: [] Mobility Limitations Standardized Measure [] [facility] 6 clicks Basic Mobility Inpatient Short Form: [] Raw Score:22 CMS Score: 20.91% Informed Consent/Education: Patient instructed in purpose of PT consult. Treatment : Therapuetic Activity ( 63324): functional mobility within room with FWW SBA and without device SBAshort distances Assessment: Patient presents with clinical signs and symptoms consistent with current/admitting diagnoses as well as possible plantar fasciitis and gout like changes to left middle IP joint that have resulted to mobility limitations, gait instability, generalized weakness, and impairment of motor control as demonstrated by the following impairment level findings: 1. Decreased strength BLE muscle groups 2. Impaired standing balance 3. Limitation of joint range of motion B ankles and left hand 4. Pain B feet , calves and left finger 5. impaired functional stand activity tolerance Impairments are contributing to the following functional limitations: 1. Inability to safely ambulate without assistive device 2. Increase completion time for mobility ADL performance 3. Increased fall risk 4. Inability to perform stairs without assistance Patient is assessed as a moderate complexity based on the following: History: 63-year-old male with impairment level findings, functional limitations, and past medical history as indicated above Examination: Demonstrable impairment in strength, balance, and mobility level with underlying impairments and functional limitations as documented above Presentation: evolving Decision Making: moderate Goals: 1. Independent transfers 2 Independent ambulation with LRD or no AD>300 feet 3. 13 steps with rail supervision Plan of Care/Treatment Plan: Pt would benefit from skilled PT 1-2 times per day for global strengthening, transfers, ambulation, pain management and balance facilitation Plan of care has been reviewed with the SUPERVISOR PHOSPHORUS PROCESSING under the direction of the PT. DISCHARGE RECOMMENDATIONS: Home with outpatient PT for further treatment of B foot pain TREATMENT CODE/TIME: 33775, [id number]/ [id number] Thank you for the opportunity to participate in the care of this patient. Melissa Yarbrough PT [facility]
--- NOTE | 2024-02-18 12:30 | PGE_ITS ---
Date of Service Date of service: 02/18/24 Time of Service: 12:30 Assessment and Plan Assessment and plan (1) Alcohol use disorder: Status: Chronic Assessment and plan: admitted to the icu with the phenobarbitol protocol as well as thiamine. Monitor for improvements CIWA protocol 02/17/24. Still with elevations in his CIWA protocol. Getting close to the hard stop per protocol for phenobarbital. Also on thiamine (2) DTs (delirium tremens): Status: Acute Assessment and plan: as above (3) Hypertension: Status: Chronic Assessment and plan: restarted home meds and will monitor 02/17/24 Pt on lisinopril at home but held here 2/2 jj. Pt also on metoprolol. Will not make any changes at this time as there is certainly a component of etoh w/d causing elevations in his bp (4) Hyperlipidemia: Status: Acute Assessment and plan: restart home meds atorvastatin (5) Type 2 diabetes mellitus with mild nonproliferative diabetic retinopathy without macular edema, bilateral: Status: Acute Assessment and plan: restarted aspart and glargine (6) B12 deficiency: Status: Acute (7) CKD (chronic kidney disease) stage 4, GFR 15-29 ml/min: Status: Acute Assessment and plan: h/o CKD 2/2 single kidney. Stable 02/17/24 Renal fx has improved with bun/cr at 45/2.6 respectively 02/18/24 reorder labs in am Subjective Subjective Interval history since last seen: PT seen and examined in his room today. Pt appears much more relaxed. POC d/w pt as well as with bedside nurse during icu huddle Exam Narrative Exam Narrative: HEENT: Normocephalic atraumatic mucous membranes moist oropharynx clear extra motions are intact Neck: No lymphadenopathy no JVD no thyroid megaly Cardiovascular: Tachycardia but no murmur rubs gallops Pulm: Clear to auscultation bilaterally with good air exchange Abdomen: Soft nontender nondistended bowel sounds active Neurologic: Cranial nerves II through XII intact as tested reflexes in upper lower extremity normal as tested. Non focal neuro exam Psych: Responds appropriately to verbal stimuli and is alert and oriented when awake General: Appears his stated age is sleeping but wakes up to verbal stimuli only Objective Last Vital Signs Temp 37.4 C 02/18/24 05:02 Pulse 72 02/18/24 09:36 Resp 21 02/18/24 09:36 BP 99/75 L 02/18/24 09:36 Pulse Ox 93 02/18/24 09:36 Laboratory Results - last 24 hr 02/17/24 02/18/24 15:25 05:35 Phenobarbital 15.4 18.1 PAWSS Have you Been Recently Intoxicated or Drunk Within the Last 30 days?: Yes Have you Ever Experienced Previous Episodes of Alcohol Withdrawal?: Yes Have you ever Experienced Withdrawal Seizures?: Yes Have you ever Experienced Delirium Tremens(DT)s?: Yes Have you ever undergone Alcohol Rehabilitation Treatment (i.e, inpt ot outpatient treatment programs)?: Unable to Obtain Have you ever Experienced Blackouts?: Unable to Obtain Have you ever Combined Alcohol with other Downers within the last 90 days?: Unable to Obtain Have you ever Combined Alcohol with any other Substance of Abuse during the last 90 days?: Unable to Obtain Positive Blood Alcohol level on Presentation? [PCS.BAL]: Yes Evidence of Increased Autonomic Activity (i.e. HR>120, tremor, sweating, a gitation, nausea)?: Yes Result: 6 Time Spent with Patient Time Spent with Patient: 25-34 minutes Time was spent: preparing to see the patient(eg.review tests), obtaining and/or reviewing separately otained hiistory, ordering medications,tests, procedures, referring, communicating with other health animal care specialist, indepentently interpreting results, counseling the patient and care coordination
[2024-02-18] MEDS: Metoprolol 25 MG TAB PO ×2 (13:58→21:03)
--- NOTE | 2024-02-18 14:30 | PT.INTREAT ---
PT Notes Visit Reasons: etoh wd Inpatient Physical Therapy Treatment Note [facility] Date: 02/18/2024 PRECAUTIONS: Standard, telemetry, monitor for signs of withdrawal SUBJECTIVE: pt sitting on the EOB when approached for therapy this afternoon, pt speaking with case manager specialist and was concluding conversation, pt agreed to participating with therapy session. OBJECTIVE: Bilateral antecubital IV line ports? PAIN: 5/10 foot and hands VITALS: Closely monitored in ICU Therapeutic Activities 30167: Direct one-on-one instruction in dynamic activities to improve functional performance.? BED MOBILITY/TRANSFERS? Rolling L/R: independent Supine-sit: independent ? Sit-supine: supervision? Sit-stand: supervision ? Stand-sit: supervision? Bed-Chair: supervision ? Chair-bed: supervision Provided skilled cues and instruction on performance and technique throughout. Gait Training 33299: Direct one-on-one instruction and skilled instruction in: employing an assistive device movement sequencing turning and movement with proper form Provided verbal cues for equipment management and technique Provided instruction in gait pattern Patient education regarding pacing and breathing techniques to maximize activity tolerance? GAIT? Assistive Device: FWW ? Weight bearing: FWB Assist: Supervision ? Distance:? 150'x1, 300'x1 ? Deviation: Slow beatriz, short step width, low step height, stoop forward posture, increased BUE loading? STAIRS: 12x 1set up/down, step to gait pattern 1handrail 1hand held ?(stair well)? ASSESSMENT:? Pt tolerated activity well, pt Sa02 goes down to 88% on fatigue with pt able to raise itback up to low 90's after deep breathing strategies. PLAN: Continue to focus on improved functional mobility and strengthening, as able to tolerate. TREATMENT CODE/TIME: 59581l8, [id number] 30mins (2:01-2:31pm)
--- NOTE | 2024-02-18 15:29 | PDOC.CMPRO ---
Date of service: 02/18/24 Time of Service: 15:29 Care Management Progress Note Progress Note Text Progress Note Text: Mina was lying in bed when CM was met with him. He was pleasant and easily engaged with CM. Mina stated that he is feeling much better today. His CIWA scores have been below 5 all day, an improvement over yesterday when they were in the teens. Mina shared that he was supposed to move into [facility] the day he was admitted. He still has a bed reserved there and will discharge directly to [facility]. He assured CM that he has transportation available so will be able to drive to appointments and the pharmacy and other places he needs to go. Discharge Potential Discharge Needs: PCP F/U Appt and Other (moving into a sober house) Anticipated Barriers to Discharge: None Identified Patient/Family Education Needs: Review discharge instructions, discuss Ask Me Three Transportation: [facility] Plan: Anticipate Mina will be discharged directly to [facility] with no new services when medically cleared. He will follow up with his PCP and plan of care and transport via RCT coordinated by CM. CM will follow and continue to support discharge planning efforts. SDOH(Care Management) Screening Will the Patient Participate in the Screening?: Yes Do you worry about having a steady place to live?: no Problems where you live: no known problems In the past 12 months, have you had to go without electric, gas, oil or water in your home?: no Have you or anyone in your house had to go without enough food to eat?: no Has lack of transportation kept you from medical appointments or from doing things needed for daily living?: no Has anyone in your support network made you feel unsafe for any reason?: no
[2024-02-18] MEDS: Enoxaparin 40 MG/0.4 ML SYR SC (16:42)
[2024-02-18] MEDS: Insulin Glargine 300 UNITS/3 ML PEN 22 UNITS SC (21:02)
[2024-02-18] MEDS: DULoxetine 30 MG CAP 60 MG PO (21:04)
[2024-02-18] MEDS: Atorvastatin 20 MG TAB PO (21:04)
[2024-02-19] VITALS (13 sets, daily range): BP systolic 105–118; BP diastolic 67–76; PULSE 71–85; RESP 8–41; TEMP 36–36.6; O2SAT 91–95
[2024-02-19] MEDS: Metoprolol 25 MG TAB PO (06:00)
[2024-02-19 07:03] LABS: Abs Immature Grans 0.07 10^3/uL (0.0-0.06); Absolute Basophil Count 0.02 10^3/uL (0.0-0.2); Absolute Eosinophil Count 0.37 10^3/uL (0.0-0.7); Absolute Monocyte Count 0.56 10^3/uL (0.1-0.8); Absolute Neutrophil Count 3.92 10^3/uL (1.2-6.7); Basophils % 0.3 %; Eosinophils % 5.8 %; HCT 35.1 % (40.0-50.0); HGB 11.2 g/dL (13.5-17.5); Immature Grans % 1.1 %; Lymphocytes % 22.1 %; MCH 29.8 pg (27.0-33.0); MCHC 31.9 % (32.0-36.0); MCV 93 fL (80-95); MPV 10.5 fL (8.0-11.0); Monocytes % 8.8 %; Neutrophils % 61.9 %; Platelet Count 215 10^3/uL (130-400); RBC 3.76 10^6/uL (4.36-5.78); RDW 13.2 % (11.8-14.1); RDW-SD 44.6 fL; WBC 6.34 10^3/uL (4.4-10.8)
[2024-02-19 07:28] LABS: ALT 13 U/L (16-63); AST 14 U/L (15-37); Albumin 2.6 g/dL (3.4-5.0); Alkaline Phosphatase 92 U/L (46-116); Anion Gap 9.2 mmol/L (3-11); BUN 54 mg/dL (7-18); Bilirubin, Total 0.49 mg/dL (0.2-1.0); CO2 22.8 mmol/L (21.0-32.0); Calcium 8.6 mg/dL (8.5-10.1); Chloride 107 mmol/L (98-107); Estimated GFR 22.49 (mL/min/1.73m2); Glucose 92 mg/dL (74-106); PHENOBARBITAL 17.7 ug/mL (15.0-40.0); Potassium 4.7 mmol/L (3.5-5.1); Sodium 139 mmol/L (136-145); Total Protein 6.5 g/dL (6.4-8.2)
[2024-02-19] MEDS: Multivitamin TAB 1 TAB PO (07:35)
[2024-02-19] MEDS: Naltrexone 50 MG TAB PO (07:35)
[2024-02-19] MEDS: DULoxetine 30 MG CAP PO (07:36)
[2024-02-19] MEDS: Thiamine 100 MG TAB PO (07:36)
[2024-02-19] MEDS: Normal Saline Flush 10 ML SYR IVP (07:36)
--- NOTE | 2024-02-19 08:44 | DSE_ITS ---
Date of service: 02/19/24 Time of Service: 08:44 DS: Diagnosis Discharge Diagnosis (1) Alcohol use disorder: Status: Chronic (2) DTs (delirium tremens): Status: Acute (3) Hypertension: Status: Chronic (4) Hyperlipidemia: Status: Acute (5) Type 2 diabetes mellitus with mild nonproliferative diabetic retinopathy without macular edema, bilateral: Status: Acute (6) B12 deficiency: Status: Acute (7) CKD (chronic kidney disease) stage 4, GFR 15-29 ml/min: Status: Acute Discharge Plan Disposition Patient Disposition: Home Condition: Good Discharge Details Reason For Visit: etoh wd Admit Date/Time: 02/16/24 14:13 Admit Provider: John Peñaloza Attending Provider: John Peñaloza Primary Care Provider: Mel Llamas Hospital Course Hospital Course: This is a 63-year-old gentleman who was admitted to the hospital for alcohol withdrawal. Patient was put on the phenobarbital protocol and did require significant phenobarbital but on the and his CIWA scores continue to improve. On the he has to be discharged to which we agreed. The pt does have CKD 2/2 having only one kidney (RCC) and his cr remained elevated. I did hold his trish for a week. I also recommended daily multivitamin with thiamine, folic acid and b12. Home Meds and New Rx's Prescriptions: Continued (DME) lancets Misc See Rx Instructions .MEDSUPPLY Rx Instructions: As directed to check blood glucose four times daily. On insulin. Dispense covered brand. (DME) Embrace DELLA test strips Strip See Rx Instructions .Route Patient Comments: Will need the embrace strips that match his meter-- Rx Instructions: As directed to fit his meter-- (DME) Dexcom G7 Structural Designer Misc See Rx Instructions .Route Qty: 1 0RF Rx Instructions: As directed (DME) Dexcom G7 Sensor Device See Rx Instructions .Route Qty: 1 0RF Rx Instructions: As directed acetaminophen 325 mg capsule 650 mg PO Q4H PRN atorvastatin 20 mg tablet See Rx Instructions .ROUTE .COMPLEX Qty: 90 3RF Dose Instruction: TAKE 1 TABLET BY MOUTH EVERY NIGHT AT BEDTIME FOR CHOLESTEROL OR DIABETES Rx Instructions: TAKE 1 TABLET BY MOUTH EVERY NIGHT AT BEDTIME FOR CHOLESTEROL OR DIABETES (DME) OneTouch Verio test strips Strip See Rx Instructions .ROUTE .COMPLEX Qty: 400 3RF Dose Instruction: TEST BLOOD SUGAR FOUR TIMES A DAY Rx Instructions: TEST BLOOD SUGAR FOUR TIMES A DAY (DME) pen needle, diabetic [Unifine Pentips Plus] 32 gauge x 5/32 needle See Rx Instructions .ROUTE .COMPLEX Qty: 360 3RF Dose Instruction: USE FOUR TIMES DAILY FOR GOAL A1C<7 Rx Instructions: USE FOUR TIMES DAILY FOR GOAL A1C<7 insulin glargine U-300 conc [Toujeo Max U-300 SoloStar] 300 unit/mL (3 mL) insulin pen 28 unit subcut QPM MDD 50 units/24 h Qty: 30 4RF duloxetine 60 mg capsule,delayed release(DR/EC) See Rx Instructions .ROUTE .COMPLEX Qty: 90 3RF Dose Instruction: TAKE ONE CAPSULE BY MOUTH EVERY MORNING Rx Instructions: TAKE ONE CAPSULE BY MOUTH bedtime duloxetine 30 mg capsule,delayed release(DR/EC) See Rx Instructions .ROUTE .COMPLEX Qty: 90 3RF Dose Instruction: TAKE ONE CAPSULE BY MOUTH EVERY DAY STOP GABAPENTIN AND START DULOXETINE FOR NEUROPATHY Rx Instructions: TAKE ONE CAPSULE BY MOUTH EVERY DAY in AM (30mg AM, 60mg PM) metoprolol succinate 25 mg tablet extended release 24 hr See Rx Instructions .ROUTE .COMPLEX Qty: 270 0RF Dose Instruction: TAKE THREE TABLETS BY MOUTH EVERY EVENING AT BEDTIME Rx Instructions: TAKE THREE TABLETS BY MOUTH EVERY EVENING AT BEDTIME Fiasp FlexTouch U-100 Insulin 100 unit/mL (3 mL) insulin pen 1 sliding scale dose subcut USEASDIRECTD MDD 24 units per 24 hours Qty: 15 3RF Rx Instructions: AC & HS sliding scale--if glucose 0-199, 0 units,200-249 2 units, 250-299 3 units, 300-399 4 units and over 400 notify PCP. multivitamin [Multiple Vitamins] Tablet 1 tab PO QAM Qty: 0 0RF naltrexone 50 mg tablet 50 mg PO DAILY Qty: 90 3RF Held lisinopril 5 mg tablet 2.5 mg PO DAILY Hold Instructions: Resume on 02/24/24. Discharge Instructions Activity:: Activity as Tolerated Equipment/Supplies:: No Equipment Needed Diet:: As Tolerated Discharge Orders Discharge Orders: Discharge Order (Routine); Ordered 02/19/24 Ordered By: John Peñaloza DS: Summary Time Spent with Patient providing and/or coordinating discharge services: Greater than 30 minutes Status at Discharge Functional status at discharge: independent ambulation Overall status at discharge: patient is back to baseline Mental Status: mental status grossly normal Speech and Movement: speech and movement normal Mood: congruent mood Affect: normal affect Quality:SDOH Health Related Social Needs: No Data to Display Exam Narrative Exam Narrative: HEENT: Normocephalic atraumatic mucous membranes moist oropharynx clear extra motions are intact Neck: No lymphadenopathy no JVD no thyroid megaly Cardiovascular: Tachycardia but no murmur rubs gallops Pulm: Clear to auscultation bilaterally with good air exchange Abdomen: Soft nontender nondistended bowel sounds active Neurologic: Cranial nerves II through XII intact as tested reflexes in upper lower extremity normal as tested. Non focal neuro exam Psych: Responds appropriately to verbal stimuli and is alert and oriented when awake General: awake and alert, no distress Psych Mental Status: mental status grossly normal Speech and Movement: speech and movement normal Mood: congruent mood Affect: normal affect DS: Data Vitals/I&O Vitals and I&O: Vital Signs Temperature 36 C L 02/19/24 03:48 Temperature Source Temporal Artery Scan 02/19/24 03:48 Pulse 71 02/19/24 08:00 Pulse 72 02/19/24 08:00 Respiratory Rate 21 02/19/24 08:00 Respiratory Effort Normal, Non-Labored 02/16/24 15:23 Respiratory Depth Normal 02/16/24 15:23 Respiratory Pattern Normal 02/16/24 15:23 Blood Pressure 115/70 02/19/24 08:00 Blood Pressure Mean 83 02/19/24 08:00 Blood Pressure Position Supine 02/16/24 15:23 Pulse Oximetry 91 L 02/19/24 08:00 Respiratory End-tidal CO2 29 02/18/24 06:51 Oxygen Delivery Method Room Air 02/18/24 20:41 Oxygen Flow Rate 0 02/18/24 20:41 Pain Level 0 02/18/24 20:41 Comment Headache, persistent. 02/17/24 08:20 Intake & Output 02/18/24 02/18/24 02/19/24 11:59 23:59 11:59 Intake Total 950 / 1750 800 / 1750 540 / 540 Output Total 600 / 1800 1200 / 1800 800 / 800 Balance 350 / -50 -400 / -50 -260 / -260 Weight 121.7 kg 121.8 kg Intake: IV 500 / 1000 500 / 1000 Oral 450 / 750 300 / 750 540 / 540 Output: Urine 600 / 1800 1200 / 1800 800 / 800 Other: Urine Color Light Vanessa Yellow Straw Urine Appearance Clear Clear Urine Odor None Normal Data Completed and Pending Labs on day of discharge: Labs from last 24 hours 02/19/24 05:53 WBC 6.34 RBC 3.76 L Hgb 11.2 L Hct 35.1 L MCV 93 MCH 29.8 MCHC 31.9 L RDW 13.2 Plt Count 215 MPV 10.5 Immature Gran % 1.1 Neutrophils % 61.9 Lymphocytes % 22.1 Monocytes % 8.8 Eosinophils % 5.8 Basophils % 0.3 Nucleated RBC % 0.0 Absolute Neutrophils 3.92 Absolute Lymphocytes 1.40 Absolute Monocytes 0.56 Absolute Eosinophils 0.37 Absolute Basophils 0.02 Sodium 139 Potassium 4.7 Chloride 107 Carbon Dioxide 22.8 Anion Gap 9.2 BUN 54 H Creatinine 3.0 H Est GFR (CKD-EPI 2020) 22.49 Glucose 92 Calcium 8.6 Total Bilirubin 0.49 AST 14 L ALT 13 L Alkaline Phosphatase 92 Total Protein 6.5 Albumin 2.6 L Phenobarbital 17.7 PFSH All Active Problems (Updated 02/16/24 @ 15:02 by CAMACHO VELÁSQUEZ) Hypomagnesemia (Acute) Acute hyperkalemia (Acute) DTs (delirium tremens) (Acute) Diverticula of colon (Acute) Melena (Acute) Single kidney (Acute) Steatosis (Acute) Age-related nuclear cataract, bilateral (Acute ~10/03/23) [place] Type 2 diabetes mellitus with mild nonproliferative diabetic retinopathy without macular edema, bilateral (Acute ~10/03/23) [place] Misuse of prescription only drugs (Acute ~03/2023) RX Gabapentin Solitary left kidney (Acute) [facility] [place] (initial 07/2020); s/p nephrectomy on R 2004 renal cell cancer; partial nephrectomy on L 2007 Hyperlipidemia (Acute) History of elevated PSA (Acute) Per [place] Records--01/14/2019 6.41, 04/28/2018 6.32; +Fam hx prostate cancer in F Secondary hyperparathyroidism (Acute ~05/2021) 05/29/21 [facility] [place] CKD (chronic kidney disease) stage 4, GFR 15-29 ml/min (Acute) Diabetic peripheral neuropathy (Chronic) B12 deficiency (Acute) Alcohol use disorder (Chronic) Lamellar macular hole of both eyes (Acute 10/25/21) Type 1 diabetes, controlled, with neuropathy (Chronic ~05/2017) Adult onset, diagnosed 05/[address] [facility] [address] Douglas--recommend GLP1 Personal goal A1C <7% Family history of prostate cancer (Chronic) F Hypertension (Chronic) RX Lisinopril (stopped due to creatinine) Medical History (Updated 02/16/24 @ 15:02 by CAMACHO VELÁSQUEZ) History of Yodit's gangrene Microcytic anemia Sinus tachycardia Fever Thrombosis superficial vein, arm, acute Gallstones Kidney lesion, eek, left Colitis due to Clostridium difficile Skin ulcer of scrotum (~2022) De Quervain's tenosynovitis, left 40 mg Depo-Medrol injection: 04/04/2022 Metabolic acidosis Alcohol intoxication (~12/02/21) Osteoarthritis of elbows, bilateral Lesion of bone of left forearm proximal radius lesion Tubular adenoma of colon 08/2018 colonoscopy [facility] GI; recall 5y History of alcohol use disorder since 1989 with intermittent sobriety History of opioid abuse s/p surgeries; visiting brother 08/2021 ([facility] admission) History of renal cell cancer s/p nephrectomy Chronic gingivitis, plaque induced Dentist Bilateral carpal tunnel syndrome Polyneuropathy associated with underlying disease DM Surgical History H/O skin graft [facility] [place] 07/12/22 Scrotal Abscess 07/15/22 Skin Graft with Bolster removal H/O arthroscopy of knee Remotely--both knees at some point; he cannot recall what, but thinks meniscal History of nephrectomy, right (~03/2004) Renal cell cancer H/O partial nephrectomy (~04/2007) left Family History Mother , 54yo breast cancer Alcohol abuse Breast cancer Depression Substance abuse Father , ~70yo prostate cancer Alcohol abuse Prostate cancer Substance abuse Sister , throat caner (nicotine use) Alcohol abuse Cancer Cervical Substance abuse Social History Smoking/Tobacco Use Status: Never Smoking risk assessment performed?: Yes Alcohol Intake: current Alcohol Intake frequency: a few times a month Previous attempts at quittin Counseling given: Yes ([facility]) Drug use: Never Substance use type: opiates Details: no IV drug use Adopted: No Caregiver/Support person: No Foster care: No Household members: other Details: Sober Living Facility Housing: house Number of Children: 4 number of grandchildren: 4 Communication Needs: None Education Level: college Do you need help understanding health information?: Rarely 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: RETIRED [employer] (ON SSDI) Pets and animals: Yes Pets and animals: cat(s) Sexually active: No Do you think of yourself as: straight/heterosexual Current gender identity: male What is your relationship status?: How often do you talk on the phone with friends or family?: three or more times per week How often do you get together with friends or relatives?: three or more times per week How often do you attend episcopalian or judaism services?: 4 or more times per year Do you belong to any clubs or organized social groups?: no Panel score (0-1 are the most socially isolated patients): 2 What type of physical activity do you participate in: walking, bicycling and other Details: EXERCISE ON STATIONARY BIKE Duration: < 15 minutes/day Frequency: 3-4 times per week Erin/Baptism: Voodoo Agree to transfusion: No Seatbelt use: always Helmet use: Yes Drive intox or ride w/intox telephone directory distributor driver: No Water heater temp set <120 deg: Yes Working smoke detector in home: Yes Fire extinguisher in home: Yes Do you feel safe at home: Yes Do you feel safe in your relationship?: Yes Time Spent with Patient Time Spent with Patient: <45 minutes Time was spent: preparing to see the patient(eg.review tests), obtaining and/or reviewing separately otained hiistory, ordering medications,tests, procedures, referring, communicating with other health day care aide, indepentently interpreting results, counseling the patient and care coordination
--- NOTE | 2024-02-19 09:17 | PDOC.CMDIS ---
LACE Index Scoring Tool Questions: Length of Stay (in days): 3 Was the patient admitted via the E.D.?: Yes E.D. Visits: 2 Answers: Total Score: 8 Risk of Readmission: Low Risk Care Management Discharge Plan Reason for Hospitalization: ETOH withdrawal Discharge Plan: Mina will be discharged to [facility] with no new services. He will follow up with his PCP and plan of care and transport with RCT coordinated by CM. Patient/Family Education Needs: Review discharge instructions, limitations, follow up plan and discuss Ask Me Three Services Needed at Discharge: Transportation SDOH Health Related Social Needs: No Data to Display
--- NOTE | 2024-02-19 12:58 | PT.INTREAT ---
PT Notes Visit Reasons: etoh wd Inpatient Physical Therapy Treatment Note [facility] Date: 02/19/2024 PRECAUTIONS: Standard, telemetry, monitor for signs of withdrawal SUBJECTIVE: pt sitting on the EOB when approached for therapy this morning. Pt reporting he is being discharged after lunch. pt agreed to participating with therapy session. OBJECTIVE: Bilateral antecubital IV line ports? PAIN: 5/10 foot and hands VITALS: Closely monitored in ICU Therapeutic Activities : Direct one-on-one instruction in dynamic activities to improve functional performance.? BED MOBILITY/TRANSFERS? Rolling L/R: independent Supine-sit: independent ? Sit-supine: independent ? Sit-stand: independent? Stand-sit: independent? Bed-Chair:independent? Provided skilled cues and instruction on performance and technique throughout. Gait Training 66788: Direct one-on-one instruction and skilled instruction in: movement sequencing turning and movement with proper form Provided verbal cues for equipment management and technique Provided instruction in gait pattern Patient education regarding pacing and breathing techniques to maximize activity tolerance? GAIT? Assistive Device: without device ? Weight bearing: FWB Assist: Supervision ? Distance:? 150'x1,? Deviation: Slow beatriz, short step width, low step height, stoop forward posture, increased BUE loading? STAIRS: 12x 1set up/down, step to gait pattern 1handrail 2 hands on rail?(stair well)? ASSESSMENT:? Pt tolerated activity well. Pt noted no increase in pain with ambulation without device. he declined a device for discharge. Reviewed with pt roll of Outpatient PT PLAN: Continue to focus on improved functional mobility and strengthening, as able to tolerate until medically appropriate for discharge TREATMENT CODE/TIME: [id number] 18 mins ([id number], [id number])
== END 2024-02-19 12:45 | disposition home or self-care (01) | DRG 897 ==
LOC: ER 12:58 → ICU 15:02
PROVIDERS: Admitting Provider Hospitalist; Emergency Provider Student in an Organized Health Care Education/Training Program; PCP Nurse Practitioner Adult Health; Visit Provider Hospitalist
DX: F10.931 Alcohol use, unspecified with withdrawal delirium (principal); E87.20 Acidosis, unspecified; N18.4 Chronic kidney disease, stage 4 (severe); N25.81 Secondary hyperparathyroidism of renal origin; I12.9 Hypertensive chronic kidney disease with stage 1 through stage 4 chronic kidney disease, or unspecified chronic kidney disease; E11.3293 Type 2 diabetes mellitus with mild nonproliferative diabetic retinopathy without macular edema, bilateral; E53.8 Deficiency of other specified B group vitamins; E11.22 Type 2 diabetes mellitus with diabetic chronic kidney disease; Z90.5 Acquired absence of kidney; Z85.528 Personal history of other malignant neoplasm of kidney; E87.5 Hyperkalemia; E83.42 Hypomagnesemia; K76.0 Fatty (change of) liver, not elsewhere classified; E78.5 Hyperlipidemia, unspecified; E11.42 Type 2 diabetes mellitus with diabetic polyneuropathy; Z79.4 Long term (current) use of insulin
CPT/HCPCS: 00123; 36410; 36415; 36416; 36569; 80053; 80307; 82805; 82962; 83690; 93005; 94640; 96365; 96366; 96367; 96375; 97116; 97162; 97530; 99291; J1650; 80184; 82140; 83605; 83735; 84443; 85025; 85610; 85730; 93010; 94760; 99223; 99232; 99233; 99239; J0612; J1815; J2060; J2405; J2560; J3411; J3475; J7613

== ENCOUNTER 2024-04-29 15:03 | Emergency (ER) | payer MEDICARE, MEDICAID, SELFPAY ==
[2024-04-29] VITALS (50 sets, daily range): BP systolic 119–175; BP diastolic 63–97; PULSE 102–126; RESP 13–23; TEMP 36.4; O2SAT 93–99
--- NOTE | 2024-04-29 15:15 | RT.EKG_ITS ---
APPROVED REPORT Exam: Resting ECG Reason for Exam: weak, dizzy, fluid losses Patient Location: E HR:125 bpm ECG Measurements Heart Rate 125 AXIS WV 169 P 69 QRSd 99 QRS 58 QT 310 T 20 QTc 444 Conclusion Sinus tachycardia, rate 125 PVCs No interval abnormalities No STEMI No significant changes from priors
[2024-04-29 16:25] LABS: ALT 25 U/L (16-63); AST 13 U/L (15-37); Albumin 4.5 g/dL (3.4-5.0); Alkaline Phosphatase 109 U/L (46-116); Bilirubin, Direct 0.2 mg/dL (0.0-0.2); Chloride 104 mmol/L (98-107); Estimated GFR 8.14 (mL/min/1.73m2); Glucose 259 mg/dL (74-106); Magnesium 1.8 mg/dL (1.8-2.4); Sodium 135 mmol/L (136-145); Total Protein 9.2 g/dL (6.4-8.2)
[2024-04-29 16:28] LABS: BUN 111 mg/dL (7-18)
[2024-04-29] MEDS: Lactated Ringers 1,000 ML 1000 ML IV ×3 (17:12→20:50)
[2024-04-29 17:15] LABS: Abs Immature Grans 0.05 10^3/uL (0.0-0.06); Absolute Basophil Count 0.01 10^3/uL (0.0-0.2); Absolute Eosinophil Count 0.28 10^3/uL (0.0-0.7); Absolute Lymphocyte Count 1.24 10^3/uL (1.2-3.4); Absolute Monocyte Count 0.98 10^3/uL (0.1-0.8); Basophils % 0.1 %; Eosinophils % 2.1 %; HCT 49.2 % (40.0-50.0); HGB 15.5 g/dL (13.5-17.5); Immature Grans % 0.4 %; Lymphocytes % 9.2 %; MCH 29.2 pg (27.0-33.0); MCHC 31.5 % (32.0-36.0); MCV 93 fL (80-95); Monocytes % 7.3 %; Neutrophils % 80.9 %; Platelet Count 321 10^3/uL (130-400); RDW 12.5 % (11.8-14.1); RDW-SD 42.9 fL; WBC 13.47 10^3/uL (4.4-10.8)
--- NOTE | 2024-04-29 17:19 | ED.GENADUL_ITS ---
Discharge Plan Disposition Patient Disposition: Transfer-Acute Inpatient Care Specific Acute Inpt Facility: [facility] Condition: Stable Discharge Details Chief Complaint: Nausea/Vomit/Diar Clinical Impression: ALEJANDRO (acute kidney injury), CKD (chronic kidney disease) stage 4, GFR 15-29 ml/min, Type 2 diabetes mellitus with mild nonproliferative diabetic retinopathy without macular edema, bilateral, Single kidney, Gastroenteritis Primary Care Provider: Mel Llamas ED Provider: Lexie Ramirez Home Meds and New Rx's Prescriptions: No Action (DME) lancets Misc See Rx Instructions .MEDSUPPLY Rx Instructions: As directed to check blood glucose four times daily. On insulin. Dispense covered brand. (DME) Embrace DELLA test strips Strip See Rx Instructions .Route Patient Comments: Will need the embrace strips that match his meter-- Rx Instructions: As directed to fit his meter-- (DME) Dexcom G7 Ichthyology Teacher Misc See Rx Instructions .Route Qty: 1 0RF Rx Instructions: As directed (DME) Dexcom G7 Sensor Device See Rx Instructions .Route Qty: 1 0RF Rx Instructions: As directed acetaminophen 325 mg capsule 650 mg PO Q4H PRN lisinopril 5 mg tablet 2.5 mg PO DAILY (DME) OneTouch Verio test strips Strip See Rx Instructions .ROUTE .COMPLEX Qty: 400 3RF Dose Instruction: TEST BLOOD SUGAR FOUR TIMES A DAY Rx Instructions: TEST BLOOD SUGAR FOUR TIMES A DAY (DME) pen needle, diabetic [Unifine Pentips Plus] 32 gauge x 5/32 needle See Rx Instructions .ROUTE .COMPLEX Qty: 360 3RF Dose Instruction: USE FOUR TIMES DAILY FOR GOAL A1C<7 Rx Instructions: USE FOUR TIMES DAILY FOR GOAL A1C<7 insulin glargine U-300 conc [Toujeo Max U-300 SoloStar] 300 unit/mL (3 mL) insulin pen 28 unit subcut QPM MDD 50 units/24 h Qty: 30 4RF duloxetine 60 mg capsule,delayed release(DR/EC) See Rx Instructions .ROUTE .COMPLEX Qty: 90 3RF Dose Instruction: TAKE ONE CAPSULE BY MOUTH EVERY MORNING Rx Instructions: TAKE ONE CAPSULE BY MOUTH bedtime duloxetine 30 mg capsule,delayed release(DR/EC) See Rx Instructions .ROUTE .COMPLEX Qty: 90 3RF Dose Instruction: TAKE ONE CAPSULE BY MOUTH EVERY DAY STOP GABAPENTIN AND START DULOXETINE FOR NEUROPATHY Rx Instructions: TAKE ONE CAPSULE BY MOUTH EVERY DAY in AM (30mg AM, 60mg PM) Fiasp FlexTouch U-100 Insulin 100 unit/mL (3 mL) insulin pen 1 sliding scale dose subcut USEASDIRECTD MDD 24 units per 24 hours Qty: 15 3RF Rx Instructions: AC & HS sliding scale--if glucose 0-199, 0 units,200-249 2 units, 250-299 3 units, 300-399 4 units and over 400 notify PCP. atorvastatin 20 mg tablet See Rx Instructions .ROUTE .COMPLEX Qty: 90 3RF Dose Instruction: TAKE ONE TABLET BY MOUTH AT BEDTIME FOR CHOLESTEROL OR DIABETES Rx Instructions: TAKE ONE TABLET BY MOUTH AT BEDTIME FOR CHOLESTEROL OR DIABETES naltrexone 50 mg tablet See Rx Instructions .ROUTE .COMPLEX Qty: 90 0RF Dose Instruction: TAKE ONE TABLET BY MOUTH EVERY DAY Rx Instructions: TAKE ONE TABLET BY MOUTH EVERY DAY metoprolol succinate 25 mg tablet extended release 24 hr See Rx Instructions .ROUTE .COMPLEX Qty: 90 1RF Dose Instruction: TAKE THREE TABLETS BY MOUTH EVERY EVENING AT BEDTIME Rx Instructions: TAKE THREE TABLETS BY MOUTH EVERY EVENING AT BEDTIME multivitamin [Multiple Vitamins] Tablet 1 tab PO QAM Qty: 0 0RF HPI General Mode of arrival: ambulatory . Date/Time Provider Initiated Documentation: 04/29/24 15:36 . Limitations to Documentation: no limitations . Information obtained by: patient and old records reviewed . HPI Narrative: HPI: This is a 63-year-old male patient with a past medical history significant for CKD stage IV, solitary kidney after nephrectomy for renal cancer, diabetes, who is presenting for evaluation of dehydration. The patient reports that he has had a diarrheal illness for the last 2 days, initially thought that he ate a bad piece of pizza, but has had countless episodes of watery diarrhea. No bloody stool, no vomiting, no recent antibiotic use, hospitalization, travel or known exposure to unclean water sources. The patient was advised by his primary care provider to come to the emergency department for evaluation. He states he has been able to drink water but does not feel like he is able to keep up with the fluid that he is losing. He has had some mild abdominal cramping, and is otherwise without acute complaint. Has had no fever. States that he has not passed urine since yesterday. Exam: Gen: Awake and alert, in no apparent distress HEENT: Non-icteric sclera Neck: Supple Lungs: No apparent respiratory distress, normal respiratory effort. CV: Appears well perfused, heart with tachycardic rate but regular rhythm, strong distal pulses. Abdomen: Non-distended, soft, nontender MSK: Moves 4 extremities without apparent limitation in ROM. no peripheral edema Skin: Visualized skin without rashes, cyanosis. Neuro: Normal Gait, no obvious focal deficits or facial asymmetry. Speaks in full, clear sentences. Psych: Appropriate for situation. MDM: This is a 63-year-old male patient presenting for evaluation of diarrhea and dehydration. Differential includes but is not limited to gastroenteritis, though I have a low concern for parasitic infection and C. difficile given the patient's lack of risk factors. Certainly considered dehydration, metabolic and electrolyte abnormalities, kidney injury. The patient has a benign abdominal examination and I have a lower concern for severe intra-abdominal pathology such as mesenteric ischemia, diverticulitis, etc. We will obtain laboratory studies to include CBC, CMP, magnesium, and provide the patient with a liter of IV fluids. ED Course: I reviewed the patient's laboratory studies, which show a mild leukocytosis to 13.4, no anemia or thrombocytopenia. Chemistry panel is most notable for an elevation in the BUN and creatinine to 111 and 7.0 respectively. Potassium 5.0, bicarb low at 10, no acute liver dysfunction. The patient received 2 L of IV fluid and had a bladder scan that showed 17 mL of urine in the bladder, and I am concerned given his solitary kidney that he may progress to end-stage renal failure and require renal replacement therapy which is not available at this facility. I did discuss with this patient and he is amenable to transfer to a dialysis capable facility, and was excepted by Dr. Alcala at [facility] for ED to ED transfer. His repeat BMP d oes not show any significant improvement, BUN 105, creatinine 6.8, potassium 5.3, though his bicarb is increasing slightly to 14.5. He received a total of 3 L of IV fluid while in my care, remained mildly tachycardic but otherwise mentating appropriately and hemodynamically stable. He was transferred from our department without incident. Lexie Ramirez MD Related Data Home Medications ?Medication ?Instructions ?Recorded ?Confirmed lancets 08/03/20 04/29/24 blood-glucose meter,continuous #1 ea 08/26/22 04/29/24 (Dexcom G7 Ichthyology Teacher) blood-glucose sensor (Dexcom G7 #1 ea 08/26/22 04/29/24 Sensor device) multivitamin (Multiple Vitamins 1 tab PO QAM #0 tabs 09/10/22 04/29/24 tablet) acetaminophen 325 mg capsule 650 mg PO Q4H PRN 11/13/22 04/29/24 lisinopril 5 mg tablet 2.5 mg PO DAILY 11/13/22 04/29/24 blood sugar diagnostic (Embrace 11/29/22 04/29/24 DELLA test strips) blood sugar diagnostic (OneTouch #400 strips 12/02/22 04/29/24 Verio test strips) pen needle, diabetic 32 gauge x #360 ea 02/11/23 04/29/2432 (Unifine Pentips Plus) insulin glargine U-300 conc 300 28 unit (0.0933 mL) subcut QPM #30 07/12/23 04/29/24 unit/mL (3 mL) subcutaneous pen mL (Toujeo Max U-300 SoloStar) duloxetine 30 mg capsule,delayed See Rx Instructions .Route 08/04/23 04/29/24 release .COMPLEX #90 caps duloxetine 60 mg capsule,delayed See Rx Instructions .Route 08/04/23 04/29/24 release .COMPLEX #90 caps insulin aspart 1 sliding scale dose subcut 08/26/23 04/29/24 (niacinamide)(U-100) 100 unit/mL(3 USEASDIRECTD #15 mL mL) subcutaneous pen (Fiasp FlexTouch U-100 Insulin) atorvastatin 20 mg tablet See Rx Instructions .Route 03/01/24 04/29/24 .COMPLEX #90 tabs naltrexone 50 mg tablet See Rx Instructions .Route 03/03/24 04/29/24 .COMPLEX #90 tabs metoprolol succinate 25 mg See Rx Instructions .Route 04/08/24 04/29/24 tablet,extended release 24 hr .COMPLEX #90 tabs Previous Rx's ?Medication ?Instructions ?Recorded blood-glucose meter,continuous #1 ea 08/26/22 (Dexcom G7 Ichthyology Teacher) blood-glucose sensor (Dexcom G7 #1 ea 08/26/22 Sensor device) multivitamin (Multiple Vitamins 1 tab PO QAM #0 tabs 09/10/22 tablet) blood sugar diagnostic (OneTouch #400 strips 12/02/22 Verio test strips) pen needle, diabetic 32 gauge x #360 ea 02/11/23 (Unifine Pentips Plus) insulin glargine U-300 conc 300 28 unit (0.0933 mL) subcut QPM #30 07/12/23 unit/mL (3 mL) subcutaneous pen mL (Toujeo Max U-300 SoloStar) duloxetine 30 mg capsule,delayed See Rx Instructions .Route 08/04/23 release .COMPLEX #90 caps duloxetine 60 mg capsule,delayed See Rx Instructions .Route 08/04/23 release .COMPLEX #90 caps insulin aspart 1 sliding scale dose subcut 08/26/23 (niacinamide)(U-100) 100 unit/mL(3 USEASDIRECTD #15 mL mL) subcutaneous pen (Fiasp FlexTouch U-100 Insulin) atorvastatin 20 mg tablet See Rx Instructions .Route 03/01/24 .COMPLEX #90 tabs naltrexone 50 mg tablet See Rx Instructions .Route 03/03/24 .COMPLEX #90 tabs metoprolol succinate 25 mg See Rx Instructions .Route 04/08/24 tablet,extended release 24 hr .COMPLEX #90 tabs Allergies Allergy/AdvReac Type Severity Reaction Status Date / Time lactose intolerant AdvReac Mild Diarrhea Uncoded 04/29/24 15:23 General Stated Complaint: Nausea/Vomit/Diar GALILEO: 3 Course Vital Signs Vital signs: Vital Signs Temperature 36.4 C L 04/29/24 15:20 Pulse 123 H 04/29/24 15:20 Respiratory Rate 20 04/29/24 15:20 Blood Pressure 126/77 04/29/24 15:20 Pulse Oximetry 96 04/29/24 15:20 Temperature 36.4 C L 04/29/24 15:20 Temperature Source Oral 04/29/24 15:20 Pulse 123 H 04/29/24 15:20 Respiratory Rate 20 04/29/24 15:20 Blood Pressure 126/77 04/29/24 15:20 Blood Pressure Position Sitting 04/29/24 15:20 Pulse Oximetry 96 04/29/24 15:20 Oxygen Delivery Method Room Air 04/29/24 15:20 Oxygen Flow Rate 0 04/29/24 15:20 Pain Level 3 04/29/24 15:20 Lab/Test Results Lab/Test Results: Laboratory Tests Range/Units 04/29/24 04/29/24 15:50 17:10 WBC Cancelled 13.47 H RBC Cancelled 5.30 Hgb Cancelled 15.5 Hct Cancelled 49.2 MCV Cancelled 93 MCH Cancelled 29.2 MCHC Cancelled 31.5 L RDW Cancelled 12.5 Plt Count Cancelled 321 MPV Cancelled 11.0 Immature Gran % Cancelled 0.4 Neutrophils % Cancelled 80.9 Band Neutrophils % Cancelled Lymphocytes % Cancelled 9.2 Atypical Lymphs % Cancelled Monocytes % Cancelled 7.3 Eosinophils % Cancelled 2.1 Basophils % Cancelled 0.1 Metamyelocytes % Cancelled Myelocytes % Cancelled Promyelocytes % Cancelled Other Cells % Cancelled Nucleated RBC % Cancelled 0.0 Absolute Neutrophils Cancelled 10.90 H Absolute Lymphocytes Cancelled 1.24 Absolute Monocytes Cancelled 0.98 H Absolute Eosinophils Cancelled 0.28 Absolute Basophils Cancelled 0.01 RBC Morphology Cancelled Polychromasia Cancelled Hypochromasia Cancelled Poikilocytosis Cancelled Basophilic Stippling Cancelled Anisocytosis Cancelled Microcytosis Cancelled Macrocytosis Cancelled Spherocytes Cancelled Tear Drop Cells Cancelled Ovalocytes Cancelled Stomatocytes Cancelled [place] Bodies Cancelled Liyah Cells/Echinocytes Cancelled Acanthocytes (Spur) Cancelled Schistocytes Cancelled Sodium (136-145) mmol/L 135 L Potassium (3.5-5.1) mmol/L 5.0 Chloride (98-107) mmol/L 104 Carbon Dioxide (21.0-32.0) mmol/L 10.0 L Anion Gap (3-11) mmol/L 21.0 H BUN (7-18) mg/dL 111 H* Creatinine (0.70-1.30) mg/dL 7.0 H* Est GFR (CKD-EPI 2020) (mL/min/1.73m2) 8.14 Glucose (74-106) mg/dL 259 H Calcium (8.5-10.1) mg/dL 9.0 Magnesium (1.8-2.4) mg/dL 1.8 Total Bilirubin (0.2-1.0) mg/dL 0.90 Conjugated Bilirubin (0.0-0.2) mg/dL 0.2 AST (15-37) U/L 13 L ALT (16-63) U/L 25 Alkaline Phosphatase (46-116) U/L 109 Total Protein (6.4-8.2) g/dL 9.2 H Albumin (3.4-5.0) g/dL 4.5 Medical Decision Making Quality:SDMS Health Related Social Needs: No Data to Display Critical Care Time Critical Care Time Critical Care Time: Yes Total Critical Care Time: 35 Attestation: Upon my evaluation, this patient had a high probability of imminent or life- threatening deterioration due to ALEJANDRO, solitary kidney, which required my direct attention, intervention, and personal management. I have personally provided 35 minutes of critical care time exclusive of time spent on separately billable procedures. Time includes review of laboratory data, radiology results, discussion with consultants, and monitoring for potential decompensation. Interventions were performed as documented above. Lexie Ramirez MD PFSH All Active Problems (Updated 04/29/24 @ 21:35 by Lexie Ramirez MD) Gastroenteritis (Acute) ALEJANDRO (acute kidney injury) (Acute) Acute hyperkalemia (Acute) Melena (Acute) Single kidney (Acute) Steatosis (Acute) Age-related nuclear cataract, bilateral (Acute ~10/03/23) [place] Type 2 diabetes mellitus with mild nonproliferative diabetic retinopathy without macular edema, bilateral (Acute ~10/03/23) [place] Misuse of prescription only drugs (Acute ~03/2023) RX Gabapentin Hyperlipidemia (Acute) Secondary hyperparathyroidism (Acute ~05/2021) 05/29/21 [facility] Nephrology CKD (chronic kidney disease) stage 4, GFR 15-29 ml/min (Acute) Diabetic peripheral neuropathy (Chronic) B12 deficiency (Acute) Alcohol use disorder (Chronic) Lamellar macular hole of both eyes (Acute 10/25/21) Type 1 diabetes, controlled, with neuropathy (Chronic ~05/2017) Adult onset, diagnosed 05/2017 [facility] Endo Dr. Douglas--recommend GLP1 Personal goal A1C <7% Family history of prostate cancer (Chronic) F Medical History (Updated 04/29/24 @ 21:35 by Lexie Ramirez MD) Diverticula of colon History of elevated PSA Per [facility] Records--01/14/2019 6.41, 04/28/2018 6.32; +Fam hx prostate cancer in F Solitary left kidney [facility] Nephro (initial 07/2020); s/p nephrectomy on R 2004 renal cell cancer; partial nephrectomy on L 2007 Hypertension RX Lisinopril (stopped due to creatinine) History of Yodit's gangrene Microcytic anemia Sinus tachycardia Fever Thrombosis superficial vein, arm, acute Gallstones Kidney lesion, [place], left Colitis due to Clostridium difficile Skin ulcer of scrotum (~2022) De Quervain's tenosynovitis, left 40 mg Depo-Medrol injection: 04/04/2022 Metabolic acidosis Alcohol intoxication (~12/02/21) Osteoarthritis of elbows, bilateral Lesion of bone of left forearm proximal radius lesion Tubular adenoma of colon 08/2018 colonoscopy [facility]; recall 5y History of alcohol use disorder since 1989 with intermittent sobriety History of opioid abuse s/p surgeries; visiting brother 08/2021 ([facility] admission) History of renal cell cancer s/p nephrectomy Chronic gingivitis, plaque induced Dentist Bilateral carpal tunnel syndrome Polyneuropathy associated with underlying disease DM Surgical History H/O skin graft [facility] 07/12/22 Scrotal Abscess 07/15/22 Skin Graft with Bolster removal H/O arthroscopy of knee Remotely--both knees at some point; he cannot recall what, but thinks meniscal History of nephrectomy, right (~03/2004) Renal cell cancer H/O partial nephrectomy (~04/2007) left Family History Mother , 54yo breast cancer Alcohol abuse Breast cancer Depression Substance abuse Father , ~70yo prostate cancer Alcohol abuse Prostate cancer Substance abuse Sister , throat caner (nicotine use) Alcohol abuse Cancer Cervical Substance abuse Social History Smoking/Tobacco Use Status: Never Smoking risk assessment performed?: Yes Alcohol Intake: current Alcohol Intake frequency: a few times a month Previous attempts at quittin Counseling given: Yes (RECIEVES MU-ISM COUNSELING AT [facility]) Drug use: Never Substance use type: opiates Details: no IV drug use Adopted: No Caregiver/Support person: No Foster care: No Household members: other Details: So[facility] Living Facility Housing: house Number of Children: 4 number of grandchildren: 4 Communication Needs: None Education Level: college Do you need help understanding health information?: Rarely 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: RETIRED [employer] (ON SSDI) Pets and animals: Yes Pets and animals: cat(s) Sexually active: No Do you think of yourself as: straight/heterosexual Current gender identity: male What is your relationship status?: How often do you talk on the phone with friends or family?: three or more times per week How often do you get together with friends or relatives?: three or more times per week How often do you attend mandaen or anabaptist services?: 4 or more times per year Do you belong to any clubs or organized social groups?: no Panel score (0-1 are the most socially isolated patients): 2 What type of physical activity do you participate in: walking, bicycling and other Details: EXERCISE ON STATIONARY BIKE Duration: < 15 minutes/day Frequency: 3-4 times per week Erin/Presybeterian: Uatsdin Agree to transfusion: No Seatbelt use: always Helmet use: Yes Drive intox or ride w/intox wrecking car driver: No Water heater temp set <120 deg: Yes Working smoke detector in home: Yes Fire extinguisher in home: Yes Do you feel safe at home: Yes Do you feel safe in your relationship?: Yes
[2024-04-29 20:37] LABS: Anion Gap 16.5 mmol/L (3-11); CO2 14.5 mmol/L (21.0-32.0); Calcium 8.8 mg/dL (8.5-10.1); Chloride 107 mmol/L (98-107); Estimated GFR 8.42 (mL/min/1.73m2); Glucose 212 mg/dL (74-106); Potassium 5.3 mmol/L (3.5-5.1); Sodium 138 mmol/L (136-145)
[2024-04-29 20:38] LABS: BUN 105 mg/dL (7-18); CREATININE 6.8 mg/dL (0.70-1.30)
[2024-04-29] MEDS: Lactated Ringers 1,000 ML 100 ML IV (22:31)
[2024-04-29 22:36] LABS: Bilirubin Negative (Negative); Blood Negative (Negative); Clarity Clear (Clear); Glucose Negative (Negative); Ketones Negative (Negative); Leukocyte Esterase Negative (Negative); Nitrite Negative (Negative); Specific Gravity 1.015 (1.005-1.025); Urobilinogen 0.2 mg/dL (Up to 0.2); pH 5.5 (5-8)
[2024-04-29 22:42] LABS: Epithelial Cells Negative HPF (Negative); RBC 0-2 HPF (0-2)
[2024-04-29 22:43] LABS: Bacteria Negative HPF (Negative); C & S Indicated? No; Casts 0-2 Hyaline LPF (Negative); Crystals Negative HPF (Negative); Mucus Trace (Negative)
[2024-04-30] VITALS (54 sets, daily range): BP systolic 121–170; BP diastolic 65–93; PULSE 114–141; RESP 13–29; O2SAT 92–98
[2024-04-30] MEDS: Acetaminophen 500 MG TAB 1000 MG PO (04:11)
[2024-04-30 04:34] LABS: Anion Gap 14.1 mmol/L (3-11); CO2 13.9 mmol/L (21.0-32.0); Calcium 8.8 mg/dL (8.5-10.1); Chloride 110 mmol/L (98-107); Glucose 184 mg/dL (74-106); Potassium 4.5 mmol/L (3.5-5.1); Sodium 138 mmol/L (136-145)
[2024-04-30 04:35] LABS: BUN 102 mg/dL (7-18); CREATININE 6.1 mg/dL (0.70-1.30)
--- NOTE | 2024-05-03 08:44 | NUR.NOTE ---
Accessed Pt chart to obtain the insurance information for Samantha from [facility]. Pt was transferred there from our ER.
== END 2024-04-30 07:36 | disposition short-term general hospital (02) ==
PROVIDERS: Emergency Medicine; Emergency Provider Student in an Organized Health Care Education/Training Program; PCP Nurse Practitioner Adult Health
DX: R19.7 Diarrhea, unspecified (principal); R11.0 Nausea; N17.9 Acute kidney failure, unspecified; E11.22 Type 2 diabetes mellitus with diabetic chronic kidney disease; N18.4 Chronic kidney disease, stage 4 (severe); E11.3293 Type 2 diabetes mellitus with mild nonproliferative diabetic retinopathy without macular edema, bilateral; Z85.528 Personal history of other malignant neoplasm of kidney; Z90.5 Acquired absence of kidney; Z79.4 Long term (current) use of insulin
CPT/HCPCS: 80048; 80053; 80076; 93005; 96360; 96361; 96366; 99285; 81003; 81015; 83735; 85025; 93010

== ENCOUNTER 2024-07-23 10:18 | Inpatient (IN) | payer MEDICARE, SELFPAY ==
[2024-07-23] VITALS (67 sets, daily range): BP systolic 125–187; BP diastolic 76–106; PULSE 122–149; RESP 5–33; TEMP 37–38.9; O2SAT 87–99
--- NOTE | 2024-07-23 10:15 | RT.EKG_ITS ---
APPROVED REPORT Exam: Resting ECG Reason for Exam: Detox Patient Location: E HR:134 bpm ECG Measurements Heart Rate 134 AXIS WA 137 P 68 QRSd 93 QRS 51 QT 298 T -53 QTc 445 Conclusion Sinus tachycardia...rate> 99
[2024-07-23 10:47] LABS: Abs Immature Grans 0.16 10^3/uL (0.0-0.06); Absolute Basophil Count 0.09 10^3/uL (0.0-0.2); Absolute Eosinophil Count 0.09 10^3/uL (0.0-0.7); Absolute Monocyte Count 1.33 10^3/uL (0.1-0.8); Basophils % 0.5 %; Eosinophils % 0.5 %; HCT 31.4 % (40.0-50.0); HGB 9.7 g/dL (13.5-17.5); Immature Grans % 0.9 %; Lymphocytes % 16.9 %; MCH 26.9 pg (27.0-33.0); MCHC 30.9 % (32.0-36.0); MCV 87 fL (80-95); MPV 10.1 fL (8.0-11.0); Monocytes % 7.1 %; Neutrophils % 74.1 %; Platelet Count 445 10^3/uL (130-400); RDW 18.1 % (11.8-14.1); RDW-SD 56.6 fL; WBC 18.72 10^3/uL (4.4-10.8)
[2024-07-23 10:49] LABS: Absolute Lymphocyte Count 3.16 10^3/uL (1.2-3.4); Absolute Neutrophil Count 13.87 10^3/uL (1.2-6.7)
--- NOTE | 2024-07-23 10:54 | ED.GENADUL_ITS ---
Discharge Plan Disposition Patient Disposition: Admit to [facility] Condition: Critical Discharge Details Chief Complaint: ETOHWithdr Clinical Impression: Alcohol abuse with withdrawal, Hallucinations, Hypomagnesemia, Chronic kidney disease, Anemia, High anion gap metabolic acidosis Primary Care Provider: Mel Llamas ED Provider: Skinny Cage Home Meds and New Rx's Prescriptions: No Action metoprolol succinate 100 mg tablet extended release 24 hr 100 mg PO DAILY Qty: 90 3RF (DME) lancets Misc See Rx Instructions .MEDSUPPLY Rx Instructions: As directed to check blood glucose four times daily. On insulin. Dispense covered brand. (DME) Embrace DELLA test strips Strip See Rx Instructions .Route Patient Comments: Will need the embrace strips that match his meter-- Rx Instructions: As directed to fit his meter-- (DME) Dexcom G7 Film Process Operator Misc See Rx Instructions .Route Qty: 1 0RF Rx Instructions: As directed (DME) Dexcom G7 Sensor Device See Rx Instructions .Route Qty: 1 0RF Rx Instructions: As directed (DME) OneTouch Verio test strips Strip See Rx Instructions .ROUTE .COMPLEX Qty: 400 3RF Dose Instruction: TEST BLOOD SUGAR FOUR TIMES A DAY Rx Instructions: TEST BLOOD SUGAR FOUR TIMES A DAY (DME) pen needle, diabetic [Unifine Pentips Plus] 32 gauge x 5/32 needle See Rx Instructions .ROUTE .COMPLEX Qty: 360 3RF Dose Instruction: USE FOUR TIMES DAILY FOR GOAL A1C<7 Rx Instructions: USE FOUR TIMES DAILY FOR GOAL A1C<7 atorvastatin 20 mg tablet See Rx Instructions .ROUTE .COMPLEX Qty: 90 3RF Dose Instruction: TAKE ONE TABLET BY MOUTH AT BEDTIME FOR CHOLESTEROL OR DIABETES Rx Instructions: TAKE ONE TABLET BY MOUTH AT BEDTIME FOR CHOLESTEROL OR DIABETES ondansetron 4 mg tablet,disintegrating 4 mg PO Q6H acetaminophen 325 mg capsule 650 mg PO Q6H PRN allopurinol 100 mg tablet 100 mg PO BID duloxetine 30 mg capsule,delayed release(DR/EC) 90 mg PO DAILY insulin lispro [Humalog KwikPen Insulin] 100 unit/mL insulin pen 1 sliding scale dose subcut QA Rx Instructions: Sliding Scale: 0-150 0 units, 151-200 2 units, 201-250 4 units, 251-300 6 units,301-350 8 units, 351-400 10 units and call PCP if glucose is greater than 400 insulin glargine 100 unit/mL (3 mL) insulin pen 17 unit subcut BID HPI General Date/Time Provider Initiated Documentation: 07/23/24 10:27 . Limitations to Documentation: no limitations . Information obtained by: patient . HPI Narrative: 63-year-old male with multiple medical problems including history of diabetes, chronic kidney disease, hyperlipidemia, alcohol use disorder, here with chief complaint of alcohol withdrawal. Patient notes he is currently on a multi week binge. He has been drinking half a gallon of vodka and about 100 ounces of beer per day. He notes he drinks 2 blackout. Over the past 3 days he has been experiencing hallucinations including hearing music. He feels like he is withdrawing. He notes he has experienced same symptoms in the past with his withdrawal and required hospitalization. He has had withdrawal seizures in the past but not recently. Just prior to arrival, in the parking lot, he drank a pint of vodka. 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 apprentice,cont #1 ea 08/26/22 07/23/24 (Dexcom G7 Film Process Operator) blood sugar diagnostic (Embrace 11/29/22 07/23/24 DELLA test strips) blood sugar diagnostic (OneTouch #400 strips 12/02/22 07/23/24 Verio test strips) pen needle, diabetic 32 gauge x #360 ea 02/11/23 07/23/24 (Unifine Pentips Plus) atorvastatin 20 mg tablet See Rx Instructions .Route 03/01/24 07/23/24 .COMPLEX #90 tabs acetaminophen 325 mg capsule 650 mg PO Q6H PRN 07/09/24 07/23/24 allopurinol 100 mg tablet 100 mg PO BID 07/09/24 07/23/24 duloxetine 30 mg capsule,delayed 90 mg PO DAILY 07/09/24 07/23/24 release insulin glargine 100 unit/mL (3 17 unit subcut BID 07/09/24 07/14/24 mL) subcutaneous pen insulin lispro 100 unit/mL 1 sliding scale dose subcut QAC 07/09/24 07/14/24 subcutaneous pen (Humalog KwikPen (U-100) Insulin) ondansetron 4 mg disintegrating 4 mg PO Q6H 07/09/24 07/14/24 tablet metoprolol succinate 100 mg 100 mg PO DAILY #90 tabs 07/14/24 07/23/24 tablet,extended release 24 hr Previous Rx's ?Medication ?Instructions ?Recorded blood-glucose sensor (Dexcom G7 #1 ea 08/26/22 Sensor device) blood-glucose,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 operator apprentice,cont #1 ea 08/26/22 (Dexcom G7 Film Process Operator) blood sugar diagnostic (OneTouch #400 strips 12/02/22 Verio test strips) pen needle, diabetic 32 gauge x #360 ea 02/11/23 (Unifine Pentips Plus) atorvastatin 20 mg tablet See Rx Instructions .Route 03/01/24 .COMPLEX #90 tabs metoprolol succinate 100 mg 100 mg PO DAILY #90 tabs 07/14/24 tablet,extended release 24 hr Allergies Allergy/AdvReac Type Severity Reaction Status Date / Time lactose intolerant AdvReac Mild Diarrhea Uncoded 07/23/24 10:24 General Stated Complaint: ETOHWithdr GALILEO: 2 Review of Systems All systems reviewed & are unremarkable except as noted in HPI and below Constitutional Constitutional: Denies fever(s) Psychiatric Psychiatric: Reports anxiety and Reports auditory hallucinations Exam Const General: cooperative HENMT Mouth: moist mucous membranes Eyes Conjunctivae: normal conjunctivae Sclera: normal sclerae Resp Auscultation: clear to auscultation bilaterally, no rales, no rhonchi and no wheezes Cardio Rate: tachycardic Rhythm: regular rhythm GI Palpation: soft, not firm, no guarding, no masses, not rigid and nontender Skin General skin exam: no rashes or lesions noted Neuro General: patient alert, patient awake, patient oriented x3 and tone normal Motor: tremor (hands bilateral) Extrem General: no edema Psych Appearance: grossly normal Mental Status: mental status grossly normal Mood: anxious mood Affect: labile affect Attitude: cooperative Course Vital Signs Vital signs: Vital Signs Temperature 37.0 C 07/23/24 10:19 Pulse 147 H 07/23/24 10:19 Respiratory Rate 14 07/23/24 10:19 Blood Pressure 153/81 H 07/23/24 10:19 Pulse Oximetry 95 07/23/24 10:19 Temperature 37.0 C 07/23/24 10:19 Temperature Source Oral 07/23/24 10:19 Pulse 147 H 07/23/24 10:19 Respiratory Rate 14 07/23/24 10:19 Respiratory Pattern Normal 07/23/24 10:42 Blood Pressure 153/81 H 07/23/24 10:19 Blood Pressure Position Sitting 07/23/24 10:19 Pulse Oximetry 95 07/23/24 10:19 Oxygen Delivery Method Room Air 07/23/24 10:19 Oxygen Flow Rate 0 07/23/24 10:19 Pain Level 6 07/23/24 10:19 Lab/Test Results Lab/Test Results: Laboratory Tests Range/Units 07/23/24 10:37 WBC (4.4-10.8) 10^3/uL 18.72 H RBC (4.36-5.78) 10^6/uL 3.60 L Hgb (13.5-17.5) g/dL 9.7 L Hct (40.0-50.0) % 31.4 L MCV (80-95) fL 87 MCH (27.0-33.0) pg 26.9 L MCHC (32.0-36.0) % 30.9 L RDW (11.8-14.1) % 18.1 H Plt Count (130-400) 10^3/uL 445 H MPV (8.0-11.0) fL 10.1 Immature Gran % % 0.9 Neutrophils % % 74.1 Lymphocytes % % 16.9 Monocytes % % 7.1 Eosinophils % % 0.5 Basophils % % 0.5 Nucleated RBC % (0.0-0.3) % 0.0 Absolute Neutrophils (1.2-6.7) 10^3/uL 13.87 H Absolute Lymphocytes (1.2-3.4) 10^3/uL 3.16 Absolute Monocytes (0.1-0.8) 10^3/uL 1.33 H Absolute Eosinophils (0.0-0.7) 10^3/uL 0.09 Absolute Basophils (0.0-0.2) 10^3/uL 0.09 Medical Decision Making 11:00??63-year-old male with multiple medical problems including history of CKD, solitary kidney after nephrectomy for renal cancer, diabetes, alcohol use disorder, here with acute alcohol withdrawal. Patient has a CIWA score of 10. He has active tremor and has had recent hallucinations. Plan to initiate treatment with phenobarbital, weight-based intermediate dosing. Will give thiamine IV. EKG was reviewed and interpreted by me: Sinus tachycardia 134 bpm. Will initiate treatment with crystalloid 1 L bolus. 1152 --labs reviewed: Glucose 244. Anion gap elevated at 17. I suspect this is alcoholic ketoacidosis as opposed to diabetic ketoacidosis. Creatinine elevated at 1.9 which is chronic. Magnesium is low at 1.2. I will give magnesium 2g IV. Plan to hospitalize in ICU for continued treatment of alcohol withdrawal and correction of electrolytes. 1200 --I spoke to Dr. Brown, on-call hospitalist, discussed ED presentation course, he will admit the patient. Lab Data Lab results reviewed: Yes I reviewed the patient's lab results. Labs: Laboratory Tests Range/Units 07/23/24 07/23/24 10:37 11:10 WBC (4.4-10.8) 10^3/uL 18.72 H RBC (4.36-5.78) 10^6/uL 3.60 L Hgb (13.5-17.5) g/dL 9.7 L Hct (40.0-50.0) % 31.4 L MCV (80-95) fL 87 MCH (27.0-33.0) pg 26.9 L MCHC (32.0-36.0) % 30.9 L RDW (11.8-14.1) % 18.1 H Plt Count (130-400) 10^3/uL 445 H MPV (8.0-11.0) fL 10.1 Immature Gran % % 0.9 Neutrophils % % 74.1 Lymphocytes % % 16.9 Monocytes % % 7.1 Eosinophils % % 0.5 Basophils % % 0.5 Nucleated RBC % (0.0-0.3) % 0.0 Absolute Neutrophils (1.2-6.7) 10^3/uL 13.87 H Absolute Lymphocytes (1.2-3.4) 10^3/uL 3.16 Absolute Monocytes (0.1-0.8) 10^3/uL 1.33 H Absolute Eosinophils (0.0-0.7) 10^3/uL 0.09 Absolute Basophils (0.0-0.2) 10^3/uL 0.09 Sodium Cancelled 141 Potassium Cancelled 4.4 Chloride Cancelled 110 H Carbon Dioxide Cancelled 13.8 L Anion Gap Cancelled 17.2 H BUN Cancelled 46 H Creatinine Cancelled 1.9 H Est GFR (CKD-EPI 2020) Cancelled 38.91 Glucose Cancelled 244 H Calcium Cancelled 8.8 Magnesium Cancelled 1.2 L Total Bilirubin Cancelled 0.6 AST Cancelled 16 ALT Cancelled 15 L Alkaline Phosphatase Cancelled 86 Troponin I Cancelled 24 Total Protein Cancelled 7.5 Albumin Cancelled 2.9 L Ethyl Alcohol Cancelled 188.9 H Quality:SDOH Health Related Social Needs: No Data to Display Critical Care Time Critical Care Time Critical Care Time: Yes Total Critical Care Time: 45 Attestation: Due to a high probability of clinically significant, life threatening deterioration, the patient required my highest level of preparedness to intervene emergently and I personally spent this critical care time directly and personally managing the patient. This critical care time included obtaining a history; examining the patient; pulse oximetry; ordering and review of studies; arranging urgent treatment with development of a management plan; evaluation of patient's response to treatment; frequent reassessment; and, discussions with other providers. This critical care time was performed to assess and manage the high probability of imminent, life-threatening deterioration that could result in multi-organ failure. It was exclusive of separately billable procedures and treating other patients and teaching time. Please see MDM section and the rest of the note for further information on patient assessment and treatment. PFSH All Active Problems (Updated 07/23/24 @ 12:00 by Skinny Cage MD) High anion gap metabolic acidosis (Acute) Anemia (Chronic) Chronic kidney disease (Chronic) Hypomagnesemia (Acute) Hallucinations (Acute) Alcohol abuse with withdrawal (Acute) Scrotal abscess (Acute) Acute renal failure due to tubular necrosis (Acute) 05/21/2024 Acute hyperkalemia (Acute) Melena (Acute) Single kidney (Acute) Steatosis (Acute) Age-related nuclear cataract, bilateral (Acute ~10/03/23) [place] Type 2 diabetes mellitus with mild nonproliferative diabetic retinopathy without macular edema, bilateral (Acute ~10/03/23) [place] Misuse of prescription only drugs (Acute ~03/2023) RX Gabapentin Hyperlipidemia (Acute) Secondary hyperparathyroidism (Acute ~05/2021) 05/29/21 [facility] [place] Nephrology CKD (chronic kidney disease) stage 4, GFR 15-29 ml/min (Acute) Diabetic peripheral neuropathy (Chronic) B12 deficiency (Acute) Alcohol use disorder (Chronic) Lamellar macular hole of both eyes (Acute 10/25/21) Type 1 diabetes, controlled, with neuropathy (Chronic ~05/2017) Adult onset, diagnosed 05/2017 [facility] Endo Dr. Douglas--recommend GLP1 Personal goal A1C <7% Family history of prostate cancer (Chronic) F Medical History Diverticula of colon History of elevated PSA Per [place] Records--01/14/2019 6.41, 04/28/2018 6.32; +Fam hx prostate cancer in F Solitary left kidney [facility] [place] Nephro (initial 07/2020); s/p nephrectomy on R 2004 renal cell cancer; partial nephrectomy on L 2007 Hypertension RX Lisinopril (stopped due to creatinine) History of Yodit's gangrene Microcytic anemia Sinus tachycardia Fever Thrombosis superficial vein, arm, acute Gallstones Kidney lesion, solomon, left Colitis due to Clostridium difficile Skin ulcer of scrotum (~2022) De Quervain's tenosynovitis, left 40 mg Depo-Medrol injection: 04/04/2022 Metabolic acidosis Alcohol intoxication (~12/02/21) Osteoarthritis of elbows, bilateral Lesion of bone of left forearm proximal radius lesion Tubular adenoma of colon 08/2018 colonoscopy [facility]; recall 5y History of alcohol use disorder since 1989 with intermittent sobriety History of opioid abuse s/p surgeries; visiting brother 08/2021 ([facility] admission) History of renal cell cancer s/p nephrectomy Chronic gingivitis, plaque induced Dentist Bilateral carpal tunnel syndrome Polyneuropathy associated with underlying disease DM Surgical History H/O skin graft [facility] [place] 07/12/22 Scrotal Abscess 07/15/22 Skin Graft with Bolster removal H/O arthroscopy of knee Remotely--both knees at some point; he cannot recall what, but thinks meniscal History of nephrectomy, right (~03/2004) Renal cell cancer H/O partial nephrectomy (~04/2007) left Family History Mother , 54yo breast cancer Alcohol abuse Breast cancer Depression Substance abuse Father , ~70yo prostate cancer Alcohol abuse Prostate cancer Substance abuse Sister , throat caner (nicotine use) Alcohol abuse Cancer Cervical Substance abuse Social History Smoking/Tobacco Use Status: Never Smoking risk assessment performed?: Yes Alcohol Intake: current Alcohol Intake frequency: a few times a month Alcohol type: beer and hard liquor Previous attempts at quittin Counseling given: Yes ([facility]) Drug use: Binges Substance use type: does not use and opiates Details: no IV drug use Adopted: No Caregiver/Support person: No Foster care: No Household members: other Details: Sober Living Facility Housing: house Number of Children: 4 number of grandchildren: 4 Communication Needs: None Education Level: college Do you need help understanding health information?: Rarely 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) Pets and animals: Yes Pets and animals: cat(s) Sexually active: No Do you think of yourself as: straight/heterosexual Current gender identity: male What is your relationship status?: How often do you talk on the phone with friends or family?: three or more times per week How often do you get together with friends or relatives?: three or more times per week How often do you attend mu-ism or presybeterian services?: 4 or more times per year Do you belong to any clubs or organized social groups?: no Panel score (0-1 are the most socially isolated patients): 2 What type of physical activity do you participate in: walking, bicycling and other Details: EXERCISE ON STATIONARY BIKE Duration: < 15 minutes/day Frequency: 3-4 times per week Erin/Zoroastrian: Jainism Agree to transfusion: No Seatbelt use: always Helmet use: Yes Drive intox or ride w/intox emergency medical technician/driver: No Water heater temp set <120 deg: Yes Working smoke detector in home: Yes Fire extinguisher in home: Yes Do you feel safe at home: Yes Do you feel safe in your relationship?: Yes PAWSS Have you Been Recently Intoxicated or Drunk Within the Last 30 days?: Yes Have you Ever Experienced Previous Episodes of Alcohol Withdrawal?: Yes Have you ever Experienced Withdrawal Seizures?: Yes Have you ever Experienced Delirium Tremens(DT)s?: Yes Have you ever undergone Alcohol Rehabilitation Treatment (i.e, inpt ot outpatient treatment programs)?: No Have you ever Experienced Blackouts?: Yes Have you ever Combined Alcohol with other Downers within the last 90 days?: No Have you ever Combined Alcohol with any other Substance of Abuse during the last 90 days?: No Positive Blood Alcohol level on Presentation? [PCS.BAL]: Yes Evidence of Increased Autonomic Activity (i.e. HR>120, tremor, sweating, agitation, nausea)?: Yes Result: 7
[2024-07-23] MEDS: Lactated Ringers 1,000 ML 1000 ML IV (11:04)
[2024-07-23 11:36] LABS: ALT 15 U/L (16-63); AST 16 U/L (15-37); Albumin 2.9 g/dL (3.4-5.0); Alkaline Phosphatase 86 U/L (46-116); Anion Gap 17.2 mmol/L (3-11); BUN 46 mg/dL (7-18); Bilirubin, Total 0.6 mg/dL (0.2-1.0); CO2 13.8 mmol/L (21.0-32.0); CREATININE 1.9 mg/dL (0.70-1.30); Calcium 8.8 mg/dL (8.5-10.1); Chloride 110 mmol/L (98-107); ETHANOL BLOOD 188.9 mg/dL (<10); Estimated GFR 38.91 (mL/min/1.73m2); Glucose 244 mg/dL (74-106); Magnesium 1.2 mg/dL (1.8-2.4); Potassium 4.4 mmol/L (3.5-5.1); Sodium 141 mmol/L (136-145); Total Protein 7.5 g/dL (6.4-8.2); Troponin I 24 ng/L (<or=76)
[2024-07-23 12:02] LABS: *AMPHETAMINES SCREEN URINE Negative (Negative); *BARBITURATES SCREEN URINE Negative (Negative); *BENZODIAZEPINES SCREEN URINE Negative (Negative); Cannabinoids THC Negative (Negative); Cocaine Screen,Urine Negative (Negative); METHADONE URINE SCREEN Negative (Negative); OPIATES URINE SCREEN Negative (Negative); Tricyclic Antidepressants Negative (Negative)
--- NOTE | 2024-07-23 12:03 | W.PM.HP.N ---
Date of service: 07/23/24 Time of Service: 12:03 Assessment and Plan Assessment and plan (1) Alcohol abuse with withdrawal: Status: Acute Assessment and plan: - Patient presented to the ED with concerns for alcohol with drawl seeking detox - Patient was having auditory hallucinations which he states is normal during periods of withdrawal - Patient has significant alcohol use disorder, with a goal of drinking to blackout consuming about half gallon of vodka and 100 ounces of beer daily, including drinking a pint of vodka in a parking lot prior to coming into the emergency room - Alcohol level was 188 but despite this patient still had initial CIWA score of 10 - He will receive phenobarbital loading dose and as needed IV phenobarb based on CIWA score (2) Hallucinations: Status: Acute Assessment and plan: - Secondary to alcohol withdrawal as noted above (3) Chronic kidney disease: Status: Chronic Assessment and plan: - Creatinine appears to be baseline, will follow-up a.m. CMP (4) High anion gap metabolic acidosis: Status: Acute Assessment and plan: Anion gap 17, likely secondary to significant-alcohol intoxication with alcohol level of 188 - Will follow-up a.m. CMP (5) Hypomagnesemia: Status: Acute Assessment and plan: - 1.2 in emergency department, has been repleted - Will follow-up a.m. mag (6) Type 2 diabetes mellitus with mild nonproliferative diabetic retinopathy without macular edema, bilateral: Status: Acute Assessment and plan: - Sliding scale insulin, carb consistent diet History of Present Illness History of Present Illness Chief Complaint: detox Narrative: 63-year-old male with past medical history of IDDM, CKD, hyperlipidemia, significant alcohol use disorder with previous hospitalizations for alcohol withdrawal and reported alcohol withdrawal seizures who presents to the emergency department for detox. Patient presented to the emergency department this morning stating that he has been on a significant alcohol binge drinking about half a gallon of vodka about 100 ounces of beer a day with the goal of drinking to blackout. He states that over the last 3 days he is experiencing hallucinations and hearing music which she states is usual for him when he is beginning to withdrawal. He also states that just prior to walk into the emergency department he drank a pint of vodka in the parking lot. He denies any headache, lightheadedness, dizziness, chest pain nausea vomiting or diarrhea. In the emergency department the patient was noted as being mildly tachycardic and anxious appearing likely going through withdrawal with a CIWA score of 10. His alcohol level was 188.9. He was noted as having leukocytosis with white blood cell count of 18 with otherwise normal CBC. CMP showed anion gap 17.2 likely secondary to alcohol use, with baseline creatinine of 1.9 and a low mag which was repleted in the emergency department. While in the emergency department patient was given with 1 L normal saline and was started on phenobarb loading dose protocol. At which time emergency room physician paged hospitalist for admission for patient with severe alcohol withdrawal requiring ICU admission and phenobarbital protocol. Review of Systems All systems reviewed & are unremarkable except as noted in HPI and below PFSH All Active Problems (Updated 07/23/24 @ 13:09 by CAMACHO VELÁSQUEZ) High anion gap metabolic acidosis (Acute) Anemia (Chronic) Chronic kidney disease (Chronic) Hypomagnesemia (Acute) Hallucinations (Acute) Alcohol abuse with withdrawal (Acute) Scrotal abscess (Acute) Acute renal failure due to tubular necrosis (Acute) 05/21/2024 Acute hyperkalemia (Acute) Melena (Acute) Single kidney (Acute) Steatosis (Acute) Age-related nuclear cataract, bilateral (Acute ~10/03/23) [place] Type 2 diabetes mellitus with mild nonproliferative diabetic retinopathy without macular edema, bilateral (Acute ~10/03/23) [place] Misuse of prescription only drugs (Acute ~03/2023) RX Gabapentin Hyperlipidemia (Acute) Secondary hyperparathyroidism (Acute ~05/2021) 05/29/21 [facility] Nephrology CKD (chronic kidney disease) stage 4, GFR 15-29 ml/min (Acute) Diabetic peripheral neuropathy (Chronic) B12 deficiency (Acute) Alcohol use disorder (Chronic) Lamellar macular hole of both eyes (Acute 10/25/21) Type 1 diabetes, controlled, with neuropathy (Chronic ~05/2017) Adult onset, diagnosed 05/2017 [facility] Endo Dr. Douglas--recommend GLP1 Personal goal A1C <7% Family history of prostate cancer (Chronic) F Medical History Diverticula of colon History of elevated PSA Per [facility] Records--01/14/2019 6.41, 04/28/2018 6.32; +Fam hx prostate cancer in F Solitary left kidney [facility] Nephro (initial 07/2020); s/p nephrectomy on R 2004 renal cell cancer; partial nephrectomy on L 2007 Hypertension RX Lisinopril (stopped due to creatinine) History of Yodit's gangrene Microcytic anemia Sinus tachycardia Fever Thrombosis superficial vein, arm, acute Gallstones Kidney lesion, penobscot, left Colitis due to Clostridium difficile Skin ulcer of scrotum (~2022) De Quervain's tenosynovitis, left 40 mg Depo-Medrol injection: 04/04/2022 Metabolic acidosis Alcohol intoxication (~12/02/21) Osteoarthritis of elbows, bilateral Lesion of bone of left forearm proximal radius lesion Tubular adenoma of colon 08/2018 colonoscopy [facility]; recall 5y History of alcohol use disorder since 1989 with intermittent sobriety History of opioid abuse s/p surgeries; visiting brother 08/2021 (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 Bilateral carpal tunnel syndrome Polyneuropathy associated with underlying disease DM Surgical History H/O skin graft [facility] 07/12/22 Scrotal Abscess 07/15/22 Skin Graft with Bolster removal H/O arthroscopy of knee Remotely--both knees at some point; he cannot recall what, but thinks meniscal History of nephrectomy, right (~03/2004) Renal cell cancer H/O partial nephrectomy (~04/2007) left Family History Mother , 54yo breast cancer Alcohol abuse Breast cancer Depression Substance abuse Father , ~70yo prostate cancer Alcohol abuse Prostate cancer Substance abuse Sister , throat caner (nicotine use) Alcohol abuse Cancer Cervical Substance abuse Social History Smoking/Tobacco Use Status: Never Smoking risk assessment performed?: Yes Alcohol Intake: current Alcohol Intake frequency: a few times a month Alcohol type: beer and hard liquor Previous attempts at quittin Counseling given: Yes ([facility]) Drug use: Binges Substance use type: does not use and opiates Details: no IV drug use Adopted: No Caregiver/Support person: No Foster care: No Household members: other Details: [facility] Living Facility Housing: house Number of Children: 4 number of grandchildren: 4 Communication Needs: None Education Level: college Do you need help understanding health information?: Rarely 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 [employer] (ON SSDI) Pets and animals: Yes Pets and animals: cat(s) Sexually active: No Do you think of yourself as: straight/heterosexual Current gender identity: male What is your relationship status?: How often do you talk on the phone with friends or family?: three or more times per week How often do you get together with friends or relatives?: three or more times per week How often do you attend gnosticist or cheondoism services?: 4 or more times per year Do you belong to any clubs or organized social groups?: no Panel score (0-1 are the most socially isolated patients): 2 What type of physical activity do you participate in: walking, bicycling and other Details: EXERCISE ON STATIONARY BIKE Duration: < 15 minutes/day Frequency: 3-4 times per week Erin/Caodaism: Roman Catholic Agree to transfusion: No Seatbelt use: always Helmet use: Yes Drive intox or ride w/intox 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 Water heater temp set <120 deg: Yes Working smoke detector in home: Yes Fire extinguisher in home: Yes Do you feel safe at home: Yes Do you feel safe in your relationship?: Yes Meds Allergies and Home Medications Allergies Allergy/AdvReac Type Severity Reaction Status Date / Time lactose intolerant AdvReac Mild Diarrhea Uncoded 07/23/24 10:24 Home Medications ?Medication ?Instructions ?Recorded ?Confirmed ?Type lancets 08/03/20 07/23/24 History blood-glucose sensor (Dexcom G7 #1 ea 08/26/22 07/23/24 Rx Sensor device) blood-glucose,medical records clerk,cont #1 ea 08/26/22 07/23/24 Rx (Dexcom G7 Quality Control Clerk) blood sugar diagnostic (Embrace 11/29/22 07/23/24 History DELLA test strips) blood sugar diagnostic (OneTouch #400 strips 12/02/22 07/23/24 Rx Verio test strips) pen needle, diabetic 32 gauge x #360 ea 02/11/23 07/23/24 Rx (Unifine Pentips Plus) atorvastatin 20 mg tablet See Rx Instructions .Route 03/01/24 07/23/24 Rx .COMPLEX #90 tabs acetaminophen 325 mg capsule 650 mg PO Q6H PRN 07/09/24 07/23/24 History allopurinol 100 mg tablet 100 mg PO BID 07/09/24 07/23/24 History duloxetine 30 mg capsule,delayed 90 mg PO DAILY 07/09/24 07/23/24 History release insulin glargine 100 unit/mL (3 17 unit subcut BID 07/09/24 07/14/24 History mL) subcutaneous pen insulin lispro 100 unit/mL 1 sliding scale dose subcut QAC 07/09/24 07/14/24 History subcutaneous pen (Humalog KwikPen (U-100) Insulin) ondansetron 4 mg disintegrating 4 mg PO Q6H 07/09/24 07/14/24 History tablet metoprolol succinate 100 mg 100 mg PO DAILY #90 tabs 07/14/24 07/23/24 Rx tablet,extended release 24 hr Exam Narrative Exam Narrative: Anxious appearing gentleman sitting up in the bed in mild distress due to alcohol withdrawal and active auditory hallucinations which he knows are not real, ANO x 4, heart mildly tachycardic with rates in the low 100s, lungs clear to auscultation bilaterally, abdomen soft, nontender, nondistended Results Labs 07/23/24 10:37 07/23/24 11:10 Labs: Laboratory Results - last 24 hr 07/23/24 07/23/24 07/23/24 10:37 11:10 11:17 WBC 18.72 H RBC 3.60 L Hgb 9.7 L Hct 31.4 L MCV 87 MCH 26.9 L MCHC 30.9 L RDW 18.1 H Plt Count 445 H MPV 10.1 Immature Gran % 0.9 Neutrophils % 74.1 Lymphocytes % 16.9 Monocytes % 7.1 Eosinophils % 0.5 Basophils % 0.5 Nucleated RBC % 0.0 Absolute Neutrophils 13.87 H Absolute Lymphocytes 3.16 Absolute Monocytes 1.33 H Absolute Eosinophils 0.09 Absolute Basophils 0.09 Sodium Cancelled 141 Potassium Cancelled 4.4 Chloride Cancelled 110 H Carbon Dioxide Cancelled 13.8 L Anion Gap Cancelled 17.2 H BUN Cancelled 46 H Creatinine Cancelled 1.9 H Est GFR (CKD-EPI 2020) Cancelled 38.91 Glucose Cancelled 244 H Calcium Cancelled 8.8 Magnesium Cancelled 1.2 L Total Bilirubin Cancelled 0.6 AST Cancelled 16 ALT Cancelled 15 L Alkaline Phosphatase Cancelled 86 Troponin I Cancelled 24 Total Protein Cancelled 7.5 Albumin Cancelled 2.9 L Urine Opiates Screen Negative Urine Methadone Screen Negative Ur Barbiturates Screen Negative Ur Tricyclics Screen Negative Ur Amphetamines Screen Negative U Benzodiazepines Scrn Negative Urine Cocaine Screen Negative Ur THC Screen Negative Ethyl Alcohol Cancelled 188.9 H Last Vital Signs Temp 98.6 F 07/23/24 10:19 Pulse 147 H 07/23/24 10:19 Resp 14 07/23/24 10:19 BP 153/81 H 07/23/24 10:19 Pulse Ox 95 07/23/24 10:19 PAWSS Have you Been Recently Intoxicated or Drunk Within the Last 30 days?: Yes Have you Ever Experienced Previous Episodes of Alcohol Withdrawal?: Yes Have you ever Experienced Withdrawal Seizures?: Yes Have you ever Experienced Delirium Tremens(DT)s?: Yes Have you ever undergone Alcohol Rehabilitation Treatment (i.e, inpt ot outpatient treatment programs)?: No Have you ever Experienced Blackouts?: Yes Have you ever Combined Alcohol with other Downers within the last 90 days?: No Have you ever Combined Alcohol with any other Substance of Abuse during the last 90 days?: No Positive Blood Alcohol level on Presentation? [PCS.BAL]: Yes Evidence of Increased Autonomic Activity (i.e. HR>120, tremor, sweating, agitation, nausea)?: Yes Result: 7 Time Spent Time spent with Patient: >75 minutes Time was spent: preparing to see the patient(eg.review tests), obtaining and/or reviewing separately otained hiistory, ordering medications,tests, procedures, referring, communicating with other health resident care technician, indepentently interpreting results, counseling the patient and care coordination
[2024-07-23] MEDS: MULTIVITAMIN 10 ML, THIAMINE 100 MG, FOLIC ACID 1 MG in DEXTROSE 5%-0.45% SALINE 1,000 ML 42 ML IV (12:20)
[2024-07-23] MEDS: MAGNESIUM SULFATE 2 GM/50 ML BAG IV_INF (12:32)
[2024-07-23 12:52] LABS: Troponin I 29 ng/L (<or=76)
--- NOTE | 2024-07-23 13:52 | TELEP.MEDR_ITS ---
Date of service: 07/23/24 Time of Service: 13:52 Telepharmacy Home Med Rec Allergies Allergies: lactose intolerant Adverse Reaction (Mild, Uncoded 07/23/24 10:24) Diarrhea Interview Person Interviewed: Pt states he has not taken medications in 2-3 weeks; presents to hospital for Etoh WD. Pt asked to review medications as he should be taking. Quality Quality of Interview/Accuracy of Medication List: Good Sources Sources used to compile medication list: [employer] Medication List and [employer] pte Additional Notes Additional Notes: Pt states he has not taken any medications in 2-3 weeks Recommended Changes Recommended Changes(reason for recommendation): Resume medications as appropriate Attestation: The home medication list is now updated to the best of my knowledge and is ready to be reconciled by the provider. Please [facility] Pharmacist at for any questions.
[2024-07-23] MEDS: Enoxaparin 40 MG/0.4 ML SYR SC (16:58)
[2024-07-23] MEDS: Insulin Aspart 300 UNITS/3 ML PEN SC (16:58)
[2024-07-23] MEDS: Acetaminophen 325 MG TAB PO (17:18)
[2024-07-23] MEDS: Normal Saline Flush 10 ML SYR IVP ×2 (17:57→19:41)
--- NOTE | 2024-07-23 18:34 | DI.RAD_ITS ---
Exam(s) XR PORTABLE CHEST AP EXAM: XR PORTABLE CHEST AP CLINICAL HISTORY: new fever, leukocytosis TECHNIQUE: 2D digital imaging was performed of the chest. One image was obtained. An AP view was ob tained. COMPARISON: CR XR PORTABLE CHEST AP from 10/22/2022 FINDINGS: MEDIASTINUM: Normal. HEART: Normal. PULMONARY VASCULATURE: Normal. LUNGS: No focal consolidating infiltrates. PLEURAL SPACE: No pleural effusion or pneumothorax. BONE:Within normal limits for the patient's age. OTHER FINDINGS:Normal. IMPRESSION: No acute pulmonary findings. DATA REPOSITORY: RADIATION DOSE DELIVERED:
--- NOTE | 2024-07-23 18:34 | NUR.NOTE ---
Nursing Note: Pt spiked temp. Dr. Brown notified. Portable chest xray obtained, lab notified of blood cultures order. Urine sample obtained for UA. RSV/fluvid swab obtained. Dr. Brown requests notification of results of tests to hospitalist, notify night hospitalist if after 7pm.
[2024-07-23] MEDS: Atorvastatin 20 MG TAB PO (19:40)
[2024-07-23] MEDS: PHENobarbital 130 MG/ML VIAL IVP ×2 (19:41→22:20)
[2024-07-23 19:44] LABS: Bilirubin Negative (Negative); Blood Negative (Negative); Clarity Clear (Clear); Glucose 250 mg/dL (Negative); Ketones Negative (Negative); Leukocyte Esterase Negative (Negative); Nitrite Negative (Negative); Specific Gravity 1.015 (1.005-1.025); Urobilinogen 0.2 mg/dL (Up to 0.2); pH 5.5 (5-8)
[2024-07-23 19:53] LABS: Bacteria Negative HPF (Negative); C & S Indicated? No; Casts Negative LPF (Negative); Crystals Negative HPF (Negative); Epithelial Cells Rare HPF (Negative); Mucus Negative (Negative); RBC Negative HPF (0-2); WBC Negative HPF (0-5)
[2024-07-23 20:23] LABS: COVID-19 PCR Negative (Negative); Influenza A PCR Negative (Negative); Influenza B PCR Negative (Negative); RSV PCR Negative (Negative); Source Nasopharynx
[2024-07-23] MEDS: Lactated Ringers 1,000 ML 150 ML IV (20:57)
[2024-07-23 21:00] LABS: BE (Venous) -10 mmol/L (-2-3); HCO3 (Venous) 16 mmol/L (23-28); Lactate 1.3 mmol/L (<or=2.0); O2 Sat (Venous) 98 %; TCO2 (Venous) 15 mmol/L (24-29); pCO2 (Venous) 27 mmHg (41-51); pH (Venous) 7.37 (7.31-7.41); pO2 (Venous) 85 mmHg
[2024-07-23 21:02] LABS: Abs Immature Grans 0.09 10^3/uL (0.0-0.06); Absolute Basophil Count 0.07 10^3/uL (0.0-0.2); Absolute Eosinophil Count 0.27 10^3/uL (0.0-0.7); Absolute Lymphocyte Count 2.78 10^3/uL (1.2-3.4); Absolute Monocyte Count 1.01 10^3/uL (0.1-0.8); Absolute Neutrophil Count 10.19 10^3/uL (1.2-6.7); Basophils % 0.5 %; Eosinophils % 1.9 %; HGB 8.4 g/dL (13.5-17.5); Immature Grans % 0.6 %; Lymphocytes % 19.3 %; MCH 27.2 pg (27.0-33.0); MCHC 31.1 % (32.0-36.0); MCV 87 fL (80-95); MPV 10.1 fL (8.0-11.0); Neutrophils % 70.7 %; Platelet Count 352 10^3/uL (130-400); RBC 3.09 10^6/uL (4.36-5.78); RDW-SD 56.1 fL; WBC 14.41 10^3/uL (4.4-10.8)
[2024-07-23 21:13] LABS: Magnesium 1.5 mg/dL (1.8-2.4)
[2024-07-23 21:19] LABS: ALT 16 U/L (16-63); AST 21 U/L (15-37); Albumin 2.7 g/dL (3.4-5.0); Alkaline Phosphatase 93 U/L (46-116); Anion Gap 12.2 mmol/L (3-11); BUN 45 mg/dL (7-18); Bilirubin, Total 0.4 mg/dL (0.2-1.0); CO2 16.8 mmol/L (21.0-32.0); CREATININE 1.9 mg/dL (0.70-1.30); Calcium 8.6 mg/dL (8.5-10.1); Chloride 106 mmol/L (98-107); Estimated GFR 38.91 (mL/min/1.73m2); Glucose 243 mg/dL (74-106); Potassium 4.4 mmol/L (3.5-5.1); Sodium 135 mmol/L (136-145)
--- NOTE | 2024-07-23 21:45 | W.EVENT ---
Date of service: 07/23/24 Time of Service: 21:45 Event Note: I was signed out at shift change to follow-up on the lab on this patient with fever and evaluation for possible source of infection. Patient was comfortable and chest x-ray to be available no acute changes with patient having aspiration risk with his alcohol withdrawal. VBG was improving with less acidosis and normal lactate. Procalcitonin was negative. Patient was having increased glucose management but negative ketones with his acute acidosis and though he does have diabetes I doubt it DKA. He is on sliding coverage and doing well. UA was negative and blood cultures were performed and pending. Patient was comfortable at the time of my exam with lungs clear and abdomen soft with no tremors and at that time no visual or auditory hallucinations. He is doing well with phenobarbital protocol for alcohol withdrawal. Assessment/plan: Fever in a patient going through alcohol withdrawal with no obvious source of infection at this time. No antibiotics were initiated. Continue to monitor closely. He does have hyperglycemia but no overt DKA with his acidosis and IV fluids were increased for overnight to be reevaluated in the morning. EXAM: XR PORTABLE CHEST AP CLINICAL HISTORY: new fever, leukocytosis TECHNIQUE: 2D digital imaging was performed of the chest. One image was obtained. An AP view was obtained. COMPARISON: CR XR PORTABLE CHEST AP from 10/22/2022 FINDINGS: MEDIASTINUM: Normal. HEART: Normal. PULMONARY VASCULATURE: Normal. LUNGS: No focal consolidating infiltrates. PLEURAL SPACE: No pleural effusion or pneumothorax. BONE:Within normal limits for the patient's age. OTHER FINDINGS:Normal. IMPRESSION: No acute pulmonary findings. Time Spent with Patient Time spent in critical care(minutes): 30 Time Spent Included: Coordination of care, Chart review (Reviewing lab and imaging for follow-up on fever after hospitalization.), Documenting critically ill care and Time at immediate bedside
[2024-07-23] MEDS: MAGNESIUM SULFATE 4 GM/100 ML BAG IV_INF (22:02)
[2024-07-24] VITALS (78 sets, daily range): BP systolic 122–191; BP diastolic 73–107; PULSE 86–126; RESP 14–30; TEMP 36.5–37.2; O2SAT 88–100
[2024-07-24 01:18] LABS: Anion Gap 11.5 mmol/L (3-11); BUN 42 mg/dL (7-18); CO2 19.5 mmol/L (21.0-32.0); CREATININE 1.7 mg/dL (0.70-1.30); Calcium 8.9 mg/dL (8.5-10.1); Chloride 106 mmol/L (98-107); Estimated GFR 44.46 (mL/min/1.73m2); Glucose 224 mg/dL (74-106); Potassium 4.1 mmol/L (3.5-5.1); Sodium 137 mmol/L (136-145)
[2024-07-24] MEDS: Lactated Ringers 1,000 ML 150 ML IV ×2 (03:38→10:23)
[2024-07-24] MEDS: Normal Saline Flush 10 ML SYR IVP ×5 (04:08→21:10)
[2024-07-24] MEDS: PHENobarbital 130 MG/ML VIAL IVP ×4 (04:08→21:08)
[2024-07-24] MEDS: Acetaminophen 325 MG TAB PO (04:09)
[2024-07-24 06:23] LABS: HCT 29.1 % (40.0-50.0); HGB 8.9 g/dL (13.5-17.5); MCH 26.3 pg (27.0-33.0); MCHC 30.6 % (32.0-36.0); MCV 86 fL (80-95); MPV 10.2 fL (8.0-11.0); Platelet Count 349 10^3/uL (130-400); RBC 3.38 10^6/uL (4.36-5.78); RDW 17.8 % (11.8-14.1); RDW-SD 55.7 fL; WBC 12.31 10^3/uL (4.4-10.8)
[2024-07-24 06:38] LABS: Magnesium 2.1 mg/dL (1.8-2.4)
[2024-07-24 06:41] LABS: ALT 16 U/L (16-63); AST 17 U/L (15-37); Albumin 2.7 g/dL (3.4-5.0); Alkaline Phosphatase 98 U/L (46-116); Anion Gap 11.4 mmol/L (3-11); BUN 37 mg/dL (7-18); Bilirubin, Total 1.1 mg/dL (0.2-1.0); CO2 19.6 mmol/L (21.0-32.0); CREATININE 1.6 mg/dL (0.70-1.30); Calcium 8.9 mg/dL (8.5-10.1); Chloride 105 mmol/L (98-107); Estimated GFR 47.82 (mL/min/1.73m2); Glucose 263 mg/dL (74-106); Potassium 4.5 mmol/L (3.5-5.1); Sodium 136 mmol/L (136-145)
--- NOTE | 2024-07-24 09:21 | PGE_ITS ---
Date of Service Date of service: 07/24/24 Time of Service: 09:21 Assessment and Plan Assessment and plan (1) Alcohol abuse with withdrawal: Status: Acute Assessment and plan: - Patient presented to the ED with concerns for alcohol with drawl seeking detox - Patient was having auditory hallucinations which he states is normal during periods of withdrawal - Patient has significant alcohol use disorder, with a goal of drinking to blackout consuming about half gallon of vodka and 100 ounces of beer daily, including drinking a pint of vodka in a parking lot prior to coming into the emergency room - Alcohol level was 188 but despite this patient still had initial CIWA score of 10 - He will receive phenobarbital loading dose and as needed IV phenobarb based on CIWA score (2) Hallucinations: Status: Acute Assessment and plan: - Secondary to alcohol withdrawal as noted above (3) Chronic kidney disease: Status: Chronic Assessment and plan: - Creatinine appears to be baseline, will follow-up a.m. CMP (4) High anion gap metabolic acidosis: Status: Acute Assessment and plan: Anion gap 17, likely secondary to significant-alcohol intoxication with alcohol level of 188 - Will follow-up a.m. CMP (5) Hypomagnesemia: Status: Acute Assessment and plan: - 1.2 in emergency department, has been repleted - Will follow-up a.m. mag (6) Type 2 diabetes mellitus with mild nonproliferative diabetic retinopathy without macular edema, bilateral: Status: Acute Assessment and plan: - Sliding scale insulin, carb consistent diet (7) Leukocytosis: Status: Acute Assessment and plan: -patient had leukocytosis on admission with WBC ~18 -also developed fever of 102.0oF yesterday afternoon -CBC improved AM 07/24, flu/covid negative, UA negative, CXR without acute findings -leukocytosis and fever likely inflammatory response in the setting of severe alcohol withdrawal -will continue to monitor for temperature and WBC, as well as look out for potential source of infection Subjective Subjective Interval history since last seen: Patient states that he is feeling better today though he is still having some auditory hallucinations. Exam Narrative Exam Narrative: Anxious appearing gentleman sitting up in the bed in mild distress due to alcohol withdrawal and active auditory hallucinations which he knows are not real, ANO x 4, heart mildly tachycardic with rates in the low 100s, lungs clear to auscultation bilaterally, abdomen soft, nontender, nondistended Objective Last Vital Signs Temp 97.9 F 07/24/24 08:38 Pulse 111 H 07/24/24 08:30 Resp 22 07/24/24 08:30 BP 148/98 H 07/24/24 08:01 Pulse Ox 98 07/24/24 08:30 Laboratory Results - last 24 hr 07/23/24 07/23/24 07/23/24 10:37 11:10 11:17 WBC 18.72 H RBC 3.60 L Hgb 9.7 L Hct 31.4 L MCV 87 MCH 26.9 L MCHC 30.9 L RDW 18.1 H Plt Count 445 H MPV 10.1 Immature Gran % 0.9 Neutrophils % 74.1 Lymphocytes % 16.9 Monocytes % 7.1 Eosinophils % 0.5 Basophils % 0.5 Nucleated RBC % 0.0 Absolute Neutrophils 13.87 H Absolute Lymphocytes 3.16 Absolute Monocytes 1.33 H Absolute Eosinophils 0.09 Absolute Basophils 0.09 VBG pH VBG pCO2 VBG pO2 VBG HCO3 VBG Total CO2 VBG O2 Saturation VBG Base Excess VBG Lactate Sodium Cancelled 141 Potassium Cancelled 4.4 Chloride Cancelled 110 H Carbon Dioxide Cancelled 13.8 L Anion Gap Cancelled 17.2 H BUN Cancelled 46 H Creatinine Cancelled 1.9 H Est GFR (CKD-EPI 2020) Cancelled 38.91 Glucose Cancelled 244 H Calcium Cancelled 8.8 Magnesium Cancelled 1.2 L Total Bilirubin Cancelled 0.6 AST Cancelled 16 ALT Cancelled 15 L Alkaline Phosphatase Cancelled 86 Troponin I Cancelled 24 Total Protein Cancelled 7.5 Albumin Cancelled 2.9 L Procalcitonin Urine Color Urine Clarity Urine pH Ur Specific Pease Urine Protein Urine Ketones Urine Blood Urine Nitrite Urine Bilirubin Urine Urobilinogen Ur Leukocyte Esterase Urine RBC Urine WBC Ur Epithelial Cells Urine Crystals Urine Bacteria Urine Casts Urine Mucus Ur Culture Indicated? Urine Glucose Urine Opiates Screen Negative Urine Methadone Screen Negative Ur Barbiturates Screen Negative Ur Tricyclics Screen Negative Ur Amphetamines Screen Negative U Benzodiazepines Scrn Negative Urine Cocaine Screen Negative Ur THC Screen Negative Ethyl Alcohol Cancelled 188.9 H COVID-19 Source SARS-CoV-2 (PCR) Influenza Type A (PCR) Influenza Type B (PCR) RSV (PCR) 07/23/24 07/23/24 07/23/24 12:24 18:25 19:27 WBC RBC Hgb Hct MCV MCH MCHC RDW Plt Count MPV Immature Gran % Neutrophils % Lymphocytes % Monocytes % Eosinophils % Basophils % Nucleated RBC % Absolute Neutrophils Absolute Lymphocytes Absolute Monocytes Absolute Eosinophils Absolute Basophils VBG pH VBG pCO2 VBG pO2 VBG HCO3 VBG Total CO2 VBG O2 Saturation VBG Base Excess VBG Lactate Sodium Potassium Chloride Carbon Dioxide Anion Gap BUN Creatinine Est GFR (CKD-EPI 2020) Glucose Calcium Magnesium Total Bilirubin AST ALT Alkaline Phosphatase Troponin I 29 Total Protein Albumin Procalcitonin Urine Color Yellow Urine Clarity Clear Urine pH 5.5 Ur Specific Pease 1.015 Urine Protein 100 H Urine Ketones Negative Urine Blood Negative Urine Nitrite Negative Urine Bilirubin Negative Urine Urobilinogen 0.2 Ur Leukocyte Esterase Negative Urine RBC Negative Urine WBC Negative Ur Epithelial Cells Rare Urine Crystals Negative Urine Bacteria Negative Urine Casts Negative Urine Mucus Negative Ur Culture Indicated? No Urine Glucose 250 H Urine Opiates Screen Urine Methadone Screen Ur Barbiturates Screen Ur Tricyclics Screen Ur Amphetamines Screen U Benzodiazepines Scrn Urine Cocaine Screen Ur THC Screen Ethyl Alcohol COVID-19 Source Nasopharynx SARS-CoV-2 (PCR) Negative Influenza Type A (PCR) Negative Influenza Type B (PCR) Negative RSV (PCR) Negative 07/23/24 07/24/24 07/24/24 20:50 01:00 05:50 WBC 14.41 H 12.31 H RBC 3.09 L 3.38 L Hgb 8.4 L 8.9 L Hct 27.0 L 29.1 L MCV 87 86 MCH 27.2 26.3 L MCHC 31.1 L 30.6 L RDW 18.0 H 17.8 H Plt Count 352 349 MPV 10.1 10.2 Immature Gran % 0.6 Neutrophils % 70.7 Lymphocytes % 19.3 Monocytes % 7.0 Eosinophils % 1.9 Basophils % 0.5 Nucleated RBC % 0.0 Absolute Neutrophils 10.19 H Absolute Lymphocytes 2.78 Absolute Monocytes 1.01 H Absolute Eosinophils 0.27 Absolute Basophils 0.07 VBG pH 7.37 VBG pCO2 27 L VBG pO2 85 VBG HCO3 16 L VBG Total CO2 15 L VBG O2 Saturation 98 VBG Base Excess -10 L VBG Lactate 1.3 Sodium 135 L 137 136 Potassium 4.4 4.1 4.5 Chloride 106 106 105 Carbon Dioxide 16.8 L 19.5 L 19.6 L Anion Gap 12.2 H 11.5 H 11.4 H BUN 45 H 42 H 37 H Creatinine 1.9 H 1.7 H 1.6 H Est GFR (CKD-EPI 2020) 38.91 44.46 47.82 Glucose 243 H 224 H 263 H Calcium 8.6 8.9 8.9 Magnesium 1.5 L 2.1 Total Bilirubin 0.4 1.1 H AST 21 17 ALT 16 16 Alkaline Phosphatase 93 98 Troponin I Total Protein 7.0 7.0 Albumin 2.7 L 2.7 L Procalcitonin 0.20 Urine Color Urine Clarity Urine pH Ur Specific Pease Urine Protein Urine Ketones Urine Blood Urine Nitrite Urine Bilirubin Urine Urobilinogen Ur Leukocyte Esterase Urine RBC Urine WBC Ur Epithelial Cells Urine Crystals Urine Bacteria Urine Casts Urine Mucus Ur Culture Indicated? Urine Glucose Urine Opiates Screen Urine Methadone Screen Ur Barbiturates Screen Ur Tricyclics Screen Ur Amphetamines Screen U Benzodiazepines Scrn Urine Cocaine Screen Ur THC Screen Ethyl Alcohol COVID-19 Source SARS-CoV-2 (PCR) Influenza Type A (PCR) Influenza Type B (PCR) RSV (PCR) PAWSS Have you Been Recently Intoxicated or Drunk Within the Last 30 days?: Yes Have you Ever Experienced Previous Episodes of Alcohol Withdrawal?: Yes Have you ever Experienced Withdrawal Seizures?: Yes Have you ever Experienced Delirium Tremens(DT)s?: Yes Have you ever undergone Alcohol Rehabilitation Treatment (i.e, inpt ot outpatient treatment programs)?: Yes Have you ever Experienced Blackouts?: Yes Have you ever Combined Alcohol with other Downers within the last 90 days?: No Have you ever Combined Alcohol with any other Substance of Abuse during the last 90 days?: No Positive Blood Alcohol level on Presentation? [PCS.BAL]: Yes Evidence of Increased Autonomic Activity (i.e. HR>120, tremor, sweating, agitation, nausea)?: Yes Result: 8 Time Spent with Patient Time Spent with Patient: >50 minutes Time was spent: preparing to see the patient(eg.review tests), obtaining and/or reviewing separately otained hiistory, ordering medications,tests, procedures, referring, communicating with other health patient care representative, indepentently interpreting results, counseling the patient and care coordination
[2024-07-24] MEDS: DULoxetine 30 MG CAP 90 MG PO (09:24)
[2024-07-24] MEDS: Metoprolol CR 100 MG TABCR PO (09:24)
[2024-07-24] MEDS: Insulin Aspart 300 UNITS/3 ML PEN SC ×3 (09:30→17:41)
--- NOTE | 2024-07-24 09:57 | PDOC.CMIN ---
Date of service: 07/24/24 Time of Service: 09:57 Care Management Initial Assmt Initial Assessment Reason for Hospitalization: alcohol withdrawal Functional Status/Living Situation Patient Presentation: Mina was lying in bed when CM met with him. He reported that he is still not feeling well, and is hearing voices in his head that are not his own. He stated that he wants to stop drinking, and that he is well connected in the community with supports to do so. He stated that he has a diving coach, and will reach out to her once he starts feeling better. He lives at [facility], which is a recovery house, where he has support to remain sober. He reported that he will be returning to [facility] upon discharge. Per RN, he is being monitored closely on phenobarb protocol; he only has a couple doses left before he reaches his hard stop of phenobarb. CM will continue to follow. Town of Residence: [facility] Resides with: Other ([facility]) Significant Other/Family: Out of area Natural Supports: two daughters, and Rebeca, live out of the area Employment Status: Unemployed Instrumental Activities of Daily Living (ADLs): Independent Medications Medication Management: No Issues/Barriers identified Physical Functioning/Mobility Assistive Device: none Advance Directives Advance Directives: Do you have an Advance Directive: N 09/06/20 13:01 AD On File at [facility]: N 09/06/20 13:01 Date Asked 07/23/24 07/23/24 10:33 AD Date Reviewed COLST On File at [facility] No 10/19/22 17:49 COLST Date Scanned Code Status Resuscitation Status Full Code Insurance Coverage/Financial Issues Insurance: [facility] Care Team Visit Care Team Role Provider Type Mel Llamas NP Primary Care Provider NURSE PRACTITIONER Skinny Cage MD Emergency Provider [facility] STAFF PHYSICIAN Chaparro Brown MD Admit Provider [facility] STAFF PHYSICIAN Attending Provider Discharge Potential Discharge Needs: PCP F/U Appt Anticipated Barriers to Discharge: None Identified Patient/Family Education Needs: Review discharge instructions, discuss Ask Me Three Transportation: [facility] Plan: Anticipate Mina will return home with no new services. CM will offer the diving coach and resources for ETOH cessation, if Mina is agreeable. He will transport via [facility] bus vs private vehicle. He will follow up with his PCP and discharge plan of care. CM will continue to follow. Social Determinants of Health Screening Social Determinants of health last assessed in clinic: 07/24/24 Will the Patient Participate in the Screening?: Yes Do you worry about having a steady place to live?: no Problems where you live: no known problems In the past 12 months, have you had to go without electric, gas, oil or water in your home?: no 1. Within the past 12 months, we worried whether our food would run out before we got money to buy more.: Don't know/refused 2. Within the past 12 months, the food we bought just didn't last and we didn't have money to get more.: Don't know/refused Has lack of transportation kept you from medical appointments or from doing things needed for daily living?: no Has anyone in your life made you feel unsafe or unsupported?: no How hard is it for you to pay for the very basics like food, housing, medical care, and heating? Would you say it is:: Not hard at all Do you want help finding or keeping work or a job?: I do not need or want help If for any reason you need help with day-to-day activities such as bathing, preparing meals, shopping, managing finances, etc., do you get the help you need?: I don?t need any help How often do you feel lonely or isolated from those around you?: Never Do you speak a language other than Egyptian at home?: No Does the patient want assistance with any of the above?: No PFSH All Active Problems (Updated 07/24/24 @ 09:23 by Chaparro Brown MD) Leukocytosis (Acute) High anion gap metabolic acidosis (Acute) Anemia (Chronic) Chronic kidney disease (Chronic) Hypomagnesemia (Acute) Hallucinations (Acute) Alcohol abuse with withdrawal (Acute) Scrotal abscess (Acute) Acute renal failure due to tubular necrosis (Acute) 05/21/2024 Acute hyperkalemia (Acute) Melena (Acute) Single kidney (Acute) Steatosis (Acute) Age-related nuclear cataract, bilateral (Acute ~10/03/23) [place] Type 2 diabetes mellitus with mild nonproliferative diabetic retinopathy without macular edema, bilateral (Acute ~10/03/23) [place] Misuse of prescription only drugs (Acute ~03/2023) RX Gabapentin Hyperlipidemia (Acute) Secondary hyperparathyroidism (Acute ~05/2021) 05/29/21 [facility] Nephrology CKD (chronic kidney disease) stage 4, GFR 15-29 ml/min (Acute) Diabetic peripheral neuropathy (Chronic) B12 deficiency (Acute) Alcohol use disorder (Chronic) Lamellar macular hole of both eyes (Acute 10/25/21) Type 1 diabetes, controlled, with neuropathy (Chronic ~05/2017) Adult onset, diagnosed 05/2017 [facility] Endo Dr. Douglas--recommend GLP1 Personal goal A1C <7% Family history of prostate cancer (Chronic) F Medical History Diverticula of colon History of elevated PSA Per [place] Records--01/14/2019 6.41, 04/28/2018 6.32; +Fam hx prostate cancer in F Solitary left kidney [facility] Nephro (initial 07/2020); s/p nephrectomy on R 2004 renal cell cancer; partial nephrectomy on L 2007 Hypertension RX Lisinopril (stopped due to creatinine) History of Yodit's gangrene Microcytic anemia Sinus tachycardia Fever Thrombosis superficial vein, arm, acute Gallstones Kidney lesion, [place], left Colitis due to Clostridium difficile Skin ulcer of scrotum (~2022) De Quervain's tenosynovitis, left 40 mg Depo-Medrol injection: 04/04/2022 Metabolic acidosis Alcohol intoxication (~12/02/21) Osteoarthritis of elbows, bilateral Lesion of bone of left forearm proximal radius lesion Tubular adenoma of colon 08/2018 colonoscopy [facility]; recall 5y History of alcohol use disorder since 1989 with intermittent sobriety History of opioid abuse s/p surgeries; visiting brother 08/2021 ([facility] admission) History of renal cell cancer s/p nephrectomy Chronic gingivitis, plaque induced Dentist Bilateral carpal tunnel syndrome Polyneuropathy associated with underlying disease DM Surgical History H/O skin graft [facility] 07/12/22 Scrotal Abscess 07/15/22 Skin Graft with Bolster removal H/O arthroscopy of knee Remotely--both knees at some point; he cannot recall what, but thinks meniscal History of nephrectomy, right (~03/2004) Renal cell cancer H/O partial nephrectomy (~04/2007) left Family History Mother , 54yo breast cancer Alcohol abuse Breast cancer Depression Substance abuse Father , ~70yo prostate cancer Alcohol abuse Prostate cancer Substance abuse Sister , throat caner (nicotine use) Alcohol abuse Cancer Cervical Substance abuse Social History Smoking/Tobacco Use Status: Never Smoking risk assessment performed?: Yes Alcohol Intake: current Alcohol Intake frequency: a few times a month Alcohol type: beer and hard liquor Previous attempts at quittin Counseling given: Yes ([facility]) Drug use: Binges Substance use type: does not use and opiates Details: no IV drug use Adopted: No Caregiver/Support person: No Foster care: No Household members: other Details: Sober Living Facility Housing: other Number of Children: 4 number of grandchildren: 4 Communication Needs: None Education Level: college Do you need help understanding health information?: Rarely 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) Pets and animals: Yes Pets and animals: cat(s) Sexually active: No Do you think of yourself as: straight/heterosexual Current gender identity: male What is your relationship status?: How often do you talk on the phone with friends or family?: three or more times per week How often do you get together with friends or relatives?: three or more times per week How often do you attend mandaen or sabianist services?: 4 or more times per year Do you belong to any clubs or organized social groups?: no Panel score (0-1 are the most socially isolated patients): 2 What type of physical activity do you participate in: walking, bicycling and other Details: EXERCISE ON STATIONARY BIKE Duration: < 15 minutes/day Frequency: 3-4 times per week Erin/Adventism: Episcopalian Agree to transfusion: No Seatbelt use: always Helmet use: Yes Drive intox or ride w/intox team cdl driver: No Water heater temp set <120 deg: Yes Working smoke detector in home: Yes Fire extinguisher in home: Yes Do you feel safe at home: Yes Do you feel safe in your relationship?: Yes
[2024-07-24] MEDS: Enoxaparin 40 MG/0.4 ML SYR SC (15:27)
[2024-07-24] MEDS: Atorvastatin 20 MG TAB PO (21:07)
[2024-07-24] MEDS: LORazepam 20 MG/10 ML VIAL IVP (23:24)
[2024-07-25] VITALS (45 sets, daily range): BP systolic 111–164; BP diastolic 74–98; PULSE 95–129; RESP 18–36; TEMP 36.9–37.7; O2SAT 83–100
[2024-07-25 06:13] LABS: HCT 25.9 % (40.0-50.0); HGB 8.3 g/dL (13.5-17.5); MCH 27.2 pg (27.0-33.0); MCV 85 fL (80-95); MPV 10.5 fL (8.0-11.0); Platelet Count 338 10^3/uL (130-400); RBC 3.05 10^6/uL (4.36-5.78); RDW 17.7 % (11.8-14.1); RDW-SD 54.1 fL; WBC 11.63 10^3/uL (4.4-10.8)
[2024-07-25 06:29] LABS: Anion Gap 10.7 mmol/L (3-11); BUN 32 mg/dL (7-18); CO2 20.3 mmol/L (21.0-32.0); CREATININE 1.5 mg/dL (0.70-1.30); Calcium 9.1 mg/dL (8.5-10.1); Chloride 103 mmol/L (98-107); Estimated GFR 51.67 (mL/min/1.73m2); Glucose 221 mg/dL (74-106); Potassium 4.4 mmol/L (3.5-5.1); Sodium 134 mmol/L (136-145)
[2024-07-25 06:49] LABS: Magnesium 1.5 mg/dL (1.8-2.4)
[2024-07-25] MEDS: Insulin Aspart 300 UNITS/3 ML PEN SC ×3 (08:34→16:59)
[2024-07-25] MEDS: Metoprolol CR 100 MG TABCR PO (08:34)
[2024-07-25] MEDS: Acetaminophen 325 MG TAB PO ×3 (08:34→22:58)
[2024-07-25] MEDS: DULoxetine 30 MG CAP 90 MG PO (08:34)
[2024-07-25] MEDS: Normal Saline Flush 10 ML SYR IVP ×2 (08:36→19:54)
--- NOTE | 2024-07-25 11:05 | PT.INIE ---
PT Notes Visit Reasons: Alcohol withdrawal Inpatient Physical Therapy Evaluation Certification Period:? From 07/25/24?? Through 08/08/24 I certify the need for these services as being medically necessary and skilled as furnished under this plan of treatment while under my care. Please sign and return within 14 days if you agree with the plan of care listed below.? Thank you for this referral! ? Referring Physician? Date Referring Doctor:?Sean Patterson and Chaparro Brown PT Orders: PT CONSULT for safety consult for d/c Precautions: Patient Profile/Admitting Diagnosis:? The patient is a 63yo male admitted to the ICU via the ED on 07/23/24 with alcohol withdrawal seeking detox. Pt has a hx of DM, CKD, hyperlipidemia and alcohol use disorder. Past Medical History: All Active Problems (Updated 07/23/24 @ 13:09 by CAMACHO VELÁSQUEZ) High anion gap metabolic acidosis (Acute) Anemia (Chronic) Chronic kidney disease (Chronic) Hypomagnesemia (Acute) Hallucinations (Acute) Alcohol abuse with withdrawal (Acute) Scrotal abscess (Acute) Acute renal failure due to tubular necrosis (Acute) 5Acute hyperkalemia (Acute) Melena (Acute) Single kidney (Acute) Steatosis (Acute) Age-related nuclear cataract, bilateral (Acute ~10/03/23) ShippeeType 2 diabetes mellitus with mild nonproliferative diabetic retinopathy without macular edema, bilateral (Acute ~10/03/23) ShippeeMisuse of prescription only drugs (Acute ~03/2023) RX GabapentinHyperlipidemia (Acute) Secondary hyperparathyroidism (Acute ~05/2021) 05/29/21 [facility] [place] CKD (chronic kidney disease) stage 4, GFR 15-29 ml/min (Acute) Diabetic peripheral neuropathy (Chronic) B12 deficiency (Acute) Alcohol use disorder (Chronic) Lamellar macular hole of both eyes (Acute 10/25/21) Type 1 diabetes, controlled, with neuropathy (Chronic ~05/2017) Adult onset, diagnosed 05/2017 [facility] End[address] Dr. Douglas--recommend GLP1 Personal goal A1C <7%Family history of prostate cancer (Chronic) F Medical History Diverticula of colon History of elevated PSA Per [facility]--01/14/2019 6.41, 04/28/2018 6.32; +Fam hx prostate cancer in FSolitary left kidney [facility] [place] Nephro (initial 07/2020); s/p nephrectomy on R 2004 renal cell cancer; partial nephrectomy on L 2007Hypertension RX Lisinopril (stopped due to creatinine)History of Yodit's gangrene Microcytic anemia Sinus tachycardia Fever Thrombosis superficial vein, arm, acute Gallstones Kidney lesion, chuloonawick, left Colitis due to Clostridium difficile Skin ulcer of scrotum (~2022) De Quervain's tenosynovitis, left 40 mg Depo-Medrol injection: 04/04/2022Metabolic acidosis Alcohol intoxication (~12/02/21) Osteoarthritis of elbows, bilateral Lesion of bone of left forearm proximal radius lesionTubular adenoma of colon 08/2018 [facility]oscopy [facility]; recall 5yHistory of alcohol use disorder since 1989 with intermittent sobrietyHistory of opioid abuse s/p surgeries; visiting brother 08/2021 ([facility] admission)History of renal cell cancer s/p nephrectomyChronic gingivitis, plaque induced DentistBilateral carpal tunnel syndrome Polyneuropathy associated with underlying disease DM Surgical History H/O skin graft [facility] [place] 07/12/22 Scrotal Abscess 07/15/22 Skin Graft with Bolster removal H/O arthroscopy of knee Remotely--both knees at some point; he cannot recall what, but thinks meniscalHistory of nephrectomy, right (~03/2004) Renal cell cancerH/O partial nephrectomy (~04/2007) left Social History/Home Situation: Pt lives in a snf. He has stairs to enter and there is a railing. Subjective: Pt c/o (B) knee pain that is a 6-710 while in bed. Reported an increase to 8/10 upon standing and attempting to walk. He does not recall any injury or incident that started the pain and does not recall having the pain until his admission to the hospital. He reports that recently he has not needed an assistive device but has used a walker in the past. Objective: Mental Status: Patient is alert and oriented. Pain: (B) knees ranging from 6/10-8/10 ROM/Strength: Upper extremities: ROM (B) WFL; (B) UE strength grossly 4+/5 Lower extremities: ROM: Limited and painful knee ROM left knee 90 right knee 95-100, (B) LE strength grossly 4+/5 Bed Mobility: Supine to sit with supervision Tranfers: Sit to stand min A to CG of 1 Stand to sit: Stand by assist and verbal cues for safety Gait: Ambulated feet 5 ft with FWW and CG of 1 pt had to stop 2*knee pain Balance: Sitting Balance: Static (I), Dynamic standby assist Standing: Static: able to maintain with CG of 1 and (B) UE support Dynamic: able to mainatin with CG of 1 and (B) UE support [facility] AM-PAC 6 clicks Basic Mobility Inpatient Short Form: Raw Score:??18? CMS Score: 46.58% Informed Consent/Education:? Patient instructed in purpose of PT consult and plan of care and is agreeable. Pt was given a written home exercise program and reviewed the importance of ROM/ther ex to help with pain and stiffness. Treatment: Therapeutic procedures (62086o[1]): Instruction in therapeutic exercises to develop strength and endurance, range of motion and flexibility. Pt was instructed on how to perform ankle pumps, heel slides and active supine hamstring stretch. 10 reps for all 3-4 x /day. A written copy of his HEP was provided and placed on his bedside table. Assessment:? Patient is a?63 year old male admitted on 07/23/24 for alcohol withdrawal seeking detox with a hx of DM, CKD, hyperlipidemia and alcohol use disorder. Patient presents with (B) knee pain, limited (B) knee ROM, decreased strength, decreased functional mobility, decreased balance and difficulty with ambulation. The patient would benefit from skilled inpatient services to improve these impairments to maximize function and safety. Patient is assessed as:? Moderate 34096? complexity based on the following: History: See above Examination: see above Presentation: Evolving clinical presentation? Decision Making:? Moderate (1-2 history, 2-3 exam, evolving, mod-30 mins) Physical Therapy Goals: 1 week Able to get in/out of bed with supervision only. Able to perform sit to/from stand with supervision only. Able to walk feet with rolling walker with supervision only. Able to go up and down 2-3 steps with 1 rail with contact guard assist only. Independent with home exercise program Plan of Care/Treatment Plan: 1-2x/day, 7 days/week x 1 week. Plan of care has been reviewed with the GLOBAL CREATIVE CHAIRMAN providing the service under Physical Therapy direction. Initiate Physical Therapy intervention for strengthening, bed mobility, transfers, gait, stairs, balance training, use of assistive device. DISCHARGE RECOMMENDATIONS: Home with HH PT vs outpt PT for knee pain and impaired gait. Billing Charges: Treatment Units Time Duration Manual Therapy(80433) Hands-on techniques to modulate pain increase joint range of motion reduce or eliminate soft tissue swelling, inflammation, or restriction facilitate relaxation and improve contractile and non-contractile tissue extensibility ? ? Therapeutic Procedures (38752) Instruction in therapeutic exercises to develop strength and endurance, range of motion and flexibility. HEP instruction and review: Provided skilled instruction in proper exercise performance: Provided skilled manual cues to facilitate proper muscle recruitment and/or movement pattern 1 10 minutes Neurological Re-Education(81878) To improve balance, coordination, kinesthetic and proprioceptive sensations. ? ? Ultrasound(38380) To promote healing. ? ? Gait Training(95231) ? ? Therapeutic Activity(32216) Instruction in dynamic activities with one on one patient contact by the provider to improve functional performance as follows: ? ? Self Care Training(59714) ? ? E-Stim (Attended)(70370) ? ? Low IE(13656) Mod IE(27261) 1 30 minutes ? High IE(89357) ? ? Time Coded Treatment Time ? 10 minutes Total Treatment Time ? 40 minutes Informed consent Prior to the start and throughout the course of the examination and treatment, patient was made aware of the specifics and purpose of the physical assessment and treatment procedures. Appropriate draping procedures were utilized to protect modesty where applicable.
[2024-07-25] MEDS: Enoxaparin 40 MG/0.4 ML SYR SC (15:42)
--- NOTE | 2024-07-25 16:09 | W.PC.ACHO ---
Registration Status: Primary Language: Preferred Language: ED Information & Data Chief Complaint ETOHWithdr 07/23/24 10:54 Triage Note Pt arrives to ED stating he 07/23/24 10:19 needs to detox. 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 Hx of detox, hx of withdrawal seizures + DTs. Pt states he is having hallucinations. Pt states he normally drinks 1/2 gallon of vodka per day . Medical / Surgical History (Last Reviewed 07/23/24 @ 10:58 by Skinny Cage MD) Diverticula of colon History of elevated PSA Solitary left kidney Hypertension History of Yodit's gangrene Microcytic anemia Sinus tachycardia Fever Thrombosis superficial vein, arm, acute Gallstones Kidney lesion, bill moore's slough, left Colitis due to Clostridium difficile Skin ulcer of scrotum (~2022) De Quervain's tenosynovitis, left Metabolic acidosis Alcohol intoxication (~12/02/21) Osteoarthritis of elbows, bilateral Lesion of bone of left forearm Tubular adenoma of colon History of alcohol use disorder History of opioid abuse History of renal cell cancer Chronic gingivitis, plaque induced Bilateral carpal tunnel syndrome Polyneuropathy associated with underlying disease (Last Reviewed 07/23/24 @ 10:58 by Skinny Cage MD) H/O skin graft H/O arthroscopy of knee History of nephrectomy, right (~03/2004) H/O partial nephrectomy (~04/2007) Most Recent Vital Signs Temperature 37.0 C 07/25/24 15:30 Temperature Source Temporal Artery Scan 07/25/24 15:46 Pulse 97 H 07/25/24 15:30 Pulse 97 H 07/25/24 15:30 Respiratory Rate 22 07/25/24 15:30 Respiratory Effort Normal, Non-Labored 07/23/24 13:29 Respiratory Depth Normal 07/23/24 13:29 Respiratory Pattern Normal 07/23/24 13:29 Blood Pressure 111/75 07/25/24 14:01 Blood Pressure Mean 87 07/25/24 14:01 Blood Pressure Position Supine 07/23/24 13:29 Pulse Oximetry 97 07/25/24 15:30 Oxygen Delivery Method Room Air 07/25/24 15:46 Oxygen Flow Rate 0 07/25/24 15:46 Pain Level 7 07/25/24 12:34 Comment 1 L initiated at this time 07/23/24 12:01 Allergies lactose intolerant Adverse Reaction (Mild, Uncoded 07/23/24 10:24) Diarrhea Precautions Isolation Seizure precaution 07/23/24 10:40 Active Medications Generic Name Dose Route Start Last Admin Trade Name Freq PRN Reason Stop Dose Admin Acetaminophen 0 mg 07/23/24 13:23 07/25/24 14:14 Acetaminophen 325 Mg Tab PO 650 mg Q4H PRN PRN Administration Atorvastatin Calcium 20 mg 07/23/24 20:00 07/24/24 21:07 Atorvastatin 20 Mg Tab PO 20 mg HS BONG Administration Duloxetine HCl 90 mg 07/24/24 08:30 07/25/24 08:34 Duloxetine 30 Mg Cap PO 90 mg DAILY BONG Administration Enoxaparin Sodium 40 mg 07/23/24 16:00 07/25/24 15:42 Enoxaparin 40 Mg/0.4 Ml Syr SC 40 mg Q24H BONG Administration Insulin Aspart 0 units 07/23/24 13:23 07/25/24 12:01 Insulin Aspart 300 Units/3 Ml Pen SC 4 units 0800,1200,1700 BONG Administration Protocol Metoprolol Succinate 100 mg 07/24/24 08:30 07/25/24 08:34 Metoprolol Cr 100 Mg Tabcr PO 100 mg DAILY BONG Administration Sodium Chloride 0 ml 07/23/24 10:27 07/24/24 21:10 Normal Saline Flush 10 Ml Syr IVP 20 ml PRN PRN Administration Sodium Chloride 0 ml 07/23/24 20:00 07/25/24 08:36 Normal Saline Flush 10 Ml Syr IVP 20 ml BID BONG Administration IV IV Catheter Type [Right Saline Lock Forearm] IV Catheter Type [Left Forearm Saline Lock ] IV Catheter Gauge [Right 20 Forearm] IV Catheter Gauge [Left 18 Forearm] Diagnostics 07/25/24 Range/Units 05:38 WBC 11.63 H (4.4-10.8) 10^3/uL RBC 3.05 L (4.36-5.78) 10^6/uL Hgb 8.3 L (13.5-17.5) g/dL Hct 25.9 L (40.0-50.0) % MCV 85 (80-95) fL MCH 27.2 (27.0-33.0) pg MCHC 32.0 (32.0-36.0) % RDW 17.7 H (11.8-14.1) % Plt Count 338 (130-400) 10^3/uL MPV 10.5 (8.0-11.0) fL Sodium 134 L (136-145) mmol/L Potassium 4.4 (3.5-5.1) mmol/L Chloride 103 (98-107) mmol/L Carbon Dioxide 20.3 L (21.0-32.0) mmol/L Anion Gap 10.7 (3-11) mmol/L BUN 32 H (7-18) mg/dL Creatinine 1.5 H (0.70-1.30) mg/dL Est GFR (CKD-EPI 2020) 51.67 (mL/min/1.73m2) Glucose 221 H (74-106) mg/dL Calcium 9.1 (8.5-10.1) mg/dL Magnesium 1.5 L (1.8-2.4) mg/dL 07/23/24 19:27 Blood Culture - Preliminary Blood NO GROWTH 24 HOURS 07/23/24 19:15 Blood Culture - Preliminary Blood NO GROWTH 24 HOURS [id number] Documentation Fingerstick Glucose Start: 07/23/24 13:23 Freq: .ACHS Status: Active Protocol: Activity Type Activity Date Activity User E-sign Co-sign Detail Recorded Client Recorded Date Recorded By Document 07/25/24 11:51 BKG DAEMON(3) [id number]-[id number] 07/25/24 11:52 BKG DAEMON(4) Intake and Output - 24 Hour Total 07/23/24 10:18 thru 07/25/24 15:45 Intake Total 51560.1923 Output Total 7875 Balance 2822.1923 Weight 100.7 kg Intake: IV 5277.1923 Oral 5420 Output: Urine 7875 Other: Urine Color Yellow Urine Appearance Clear Urine Odor Normal Comment condom catheter utilized Stool Size Large Stool Characteristics Soft Formed Brown Falls Risk Assessment History of Falls No History 07/23/24 11:26 Contributing Factors Medications 07/23/24 13:29 Ambulatory Aids Independent 07/23/24 13:29 Tubes/Lines With any additional score 07/23/24 13:29 Gait Evaluation No gait disturbance 07/23/24 13:29 Cognition No cognitive impairment 07/23/24 13:29 Fall Total Score 23 07/23/24 13:29 Level of Risk Standard/Low Risk 07/23/24 13:29 Problems (Last Reviewed 07/23/24 @ 10:58 by Skinny Cage MD) Leukocytosis (Acute) High anion gap metabolic acidosis (Acute) Anemia (Chronic) Chronic kidney disease (Chronic) Hypomagnesemia (Acute) Hallucinations (Acute) Alcohol abuse with withdrawal (Acute) Type 2 diabetes mellitus with mild nonproliferative diabetic retinopathy without macular edema, bilateral (Acute ~10/03/23) Notes 07/23/24 18:34 Nursing Notes by Magy Tiwari Nursing Note: Pt spiked temp. Dr. Brown notified. Portable chest xray obtained, lab notified of blood cultures order. Urine sample obtained for UA. RSV/fluvid swab obtained. Dr. Brown requests notification of results of tests to hospitalist, notify night hospitalist if after 7pm. Initialized on 07/23/24 18:34 - END OF NOTE v v v v v v v v v Sending and/or Receiving Nurses: Please use comment section below to note any information pertinent to the patient hand-off not included above. Information / Comments: Hand off received at 1555, pt moved to RM 225 via wheelchair, VS done prior to transfer. Report received from: Alejandra Stringer, GAS PLUMBING INSPECTOR
--- NOTE | 2024-07-25 16:41 | W.PM.PROGNOT ---
Date of Service Date of service: 07/25/24 Time of Service: 16:41 Assessment and Plan Assessment and plan (1) Alcohol abuse with withdrawal: Status: Acute Assessment and plan: - Patient presented to the ED with concerns for alcohol with drawl seeking detox - Patient was having auditory hallucinations which he states is normal during periods of withdrawal - Patient has significant alcohol use disorder, with a goal of drinking to blackout consuming about half gallon of vodka and 100 ounces of beer daily, including drinking a pint of vodka in a parking lot prior to coming into the emergency room - Alcohol level was 188 but despite this patient still had initial CIWA score of 10 - He received phenobarbital and reached max dosing with improvement in CIWA scores (2) Hallucinations: Status: Acute Assessment and plan: - Secondary to alcohol withdrawal as noted above (3) Chronic kidney disease: Status: Chronic Assessment and plan: - Creatinine appears to be baseline, will follow-up a.m. CMP (4) High anion gap metabolic acidosis: Status: Acute Assessment and plan: Anion gap 17, likely secondary to significant-alcohol intoxication with alcohol level of 188 - now improved (5) Hypomagnesemia: Status: Acute Assessment and plan: - 1.2 in emergency department, has been repleted (6) Type 2 diabetes mellitus with mild nonproliferative diabetic retinopathy without macular edema, bilateral: Status: Acute Assessment and plan: - Sliding scale insulin, carb consistent diet (7) Leukocytosis: Status: Acute Assessment and plan: -patient had leukocytosis on admission with WBC ~18 -also developed fever of 102.0oF yesterday afternoon -CBC improved AM 07/24, flu/covid negative, UA negative, CXR without acute findings -leukocytosis and fever likely inflammatory response in the setting of severe alcohol withdrawal -will continue to monitor for temperature and WBC, as well as look out for potential source of infection Subjective Subjective Interval history since last seen: Patient states that he is feeling better and has no complaints or concerns at this time. Exam Narrative Exam Narrative: Anxious appearing gentleman laying in bedl, ANO x 4, heart mildly tachycardic with rates in the low 90s, lungs clear to auscultation bilaterally, abdomen soft, nontender, nondistended Objective Last Vital Signs Temp 98.4 F 07/25/24 16:27 Pulse 95 H 07/25/24 16:27 Resp 19 07/25/24 16:27 BP 126/77 07/25/24 16:27 Pulse Ox 97 07/25/24 16:27 Laboratory Results - last 24 hr 07/25/24 05:38 WBC 11.63 H RBC 3.05 L Hgb 8.3 L Hct 25.9 L MCV 85 MCH 27.2 MCHC 32.0 RDW 17.7 H Plt Count 338 MPV 10.5 Sodium 134 L Potassium 4.4 Chloride 103 Carbon Dioxide 20.3 L Anion Gap 10.7 BUN 32 H Creatinine 1.5 H Est GFR (CKD-EPI 2020) 51.67 Glucose 221 H Calcium 9.1 Magnesium 1.5 L PAWSS Have you Been Recently Intoxicated or Drunk Within the Last 30 days?: Yes Have you Ever Experienced Previous Episodes of Alcohol Withdrawal?: Yes Have you ever Experienced Withdrawal Seizures?: Yes Have you ever Experienced Delirium Tremens(DT)s?: Yes Have you ever undergone Alcohol Rehabilitation Treatment (i.e, inpt ot outpatient treatment programs)?: Yes Have you ever Experienced Blackouts?: Yes Have you ever Combined Alcohol with other Downers within the last 90 days?: No Have you ever Combined Alcohol with any other Substance of Abuse during the last 90 days?: No Positive Blood Alcohol level on Presentation? [PCS.BAL]: Yes Evidence of Increased Autonomic Activity (i.e. HR>120, tremor, sweating, agitation, nausea)?: Yes Result: 8 Time Spent with Patient Time Spent with Patient: >50 minutes Time was spent: preparing to see the patient(eg.review tests), obtaining and/or reviewing separately otained hiistory, ordering medications,tests, procedures, referring, communicating with other health progressive care unit registered nurse, indepentently interpreting results, counseling the patient and care coordination
[2024-07-25] MEDS: Atorvastatin 20 MG TAB PO (19:54)
[2024-07-26 06:52] VITALS: BP 126/84; PULSE 105; RESP 18; TEMP 36; O2SAT 96
[2024-07-26] MEDS: Insulin Aspart 300 UNITS/3 ML PEN SC ×3 (08:07→17:02)
[2024-07-26] MEDS: DULoxetine 30 MG CAP 90 MG PO (08:07)
[2024-07-26] MEDS: Metoprolol CR 100 MG TABCR PO (08:07)
[2024-07-26] MEDS: Normal Saline Flush 10 ML SYR IVP ×2 (08:08→20:13)
--- NOTE | 2024-07-26 10:28 | PT.INTREAT ---
PT Notes Visit Reasons: Alcohol withdrawal Inpatient Physical Therapy Treatment Note [facility] Date: 07/26/24 PRECAUTIONS:Standard SUBJECTIVE: Pt reports he is still experiencing a lot of discomfort in his knees. OBJECTIVE: Therapeutic Activities (99244h[]): Direct one-on-one instruction in dynamic activities to improve functional performance. ? BED MOBILITY/TRANSFERS? Supine-sit: I? Sit-supine: I ? Sit-stand: SBA? Stand-sit: SBA ? Provided skilled cues and instruction on performance and technique throughout. Gait Training (33629f[]): Direct one-on-one instruction and skilled instruction in: ? GAIT? Assistive Device: FWW? Weight bearing: Full Assist: CGA ? Distance:? 3x of marching in place to fatigue due to his knees being so painful and fatiguing quickly we stayed close to the bed. ? Therapeutic Exercises (00329t[2]): Direct one-on-one instruction in therapeutic exercises to develop strength, endurance, range of motion and flexibility. ? Exercises ?Seated Rowing x 15 Shoulder flexion x 10 Shoulder circles x 10 Shoulder Horz abd x 10 LAQ x 10 Hip abd x 10 Standing HR x 10? ASSESSMENT:? Pt was very willing to participate with PT. Pt fatigues fairly quickly and requires multiple rest periods. PLAN: Cont as per PT POC. TREATMENT CODE/TIME: 10:25-10:48 (23) TEx2 DISCHARGE RECOMMENDATION:
[2024-07-26] MEDS: MAGNESIUM SULFATE 2 GM/50 ML BAG IV_INF (10:57)
[2024-07-26 11:00] VITALS: BP 101/61; PULSE 100; RESP 18; TEMP 37; O2SAT 95
[2024-07-26] MEDS: oxyCODONE 5 MG TAB PO ×2 (13:08→19:29)
[2024-07-26 14:49] VITALS: BP 127/78; PULSE 99; RESP 17; TEMP 36.5; O2SAT 97
--- NOTE | 2024-07-26 14:51 | PGE_ITS ---
Date of Service Date of service: 07/26/24 Time of Service: 14:51 Assessment and Plan Assessment and plan (1) Alcohol abuse with withdrawal: Status: Acute Assessment and plan: - Patient presented to the ED with concerns for alcohol with drawl seeking detox - Patient was having auditory hallucinations which he states is normal during periods of withdrawal - He received phenobarbital and reached max dosing with improvement in CIWA scores, stable today thought some ongoing anxiety, see below. (2) Hallucinations: Status: Acute Assessment and plan: - Secondary to alcohol withdrawal as noted above, has since resolved. (3) Chronic kidney disease: Status: Chronic Assessment and plan: - Creatinine in at or below baseline at this point. He has resumed his home medications (4) High anion gap metabolic acidosis: Status: Acute Assessment and plan: Anion gap 17, likely secondary to significant-alcohol intoxication with alcohol level of 188. AG closed, recheck in AM to assure stable. (5) Hypomagnesemia: Status: Acute Assessment and plan: - 1.2 in emergency department, has been repleted but not normalized, follow in AM. (6) Type 2 diabetes mellitus with mild nonproliferative diabetic retinopathy without macular edema, bilateral: Status: Acute Assessment and plan: - Sliding scale insulin, carb consistent diet. May benefit from GLP-1 given some evidence of benefit with AUD as well. (7) Leukocytosis: Status: Acute Assessment and plan: -patient had leukocytosis on admission with WBC ~18 -also developed fever of 102, but afebrile in past 48 hours without antibiotics, likely simply inflammatory state. -WBC improving, follow in am (8) Anemia in chronic kidney disease (CKD): Status: Acute Assessment and plan: stable, follow in am with iron levels. If normal he would benefit from EPO (9) Osteoarthritis of both knees: Status: Acute Assessment and plan: Avoid NSAIDs with CKD, but can use topical diclofenac. 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 Subjective Subjective Patient reports: no new complaints, tolerating a regular diet and voiding w/o difficulty; denies diarrhea, vomiting, shortness of breath or fever Interval history since last seen: Events: No additional phenobarbitol overnight He is feeling better. Continues to be anxious, worried about where he is going from here. c/o bad bilateral knee pain, achy. states gets oxycodone from PCP in past. Exam Narrative Exam Narrative: Anxious appearing gentleman laying in bedl, ANO x 4, heart borderline tachycardic with rates in the low 90s, lungs clear to auscultation bilaterally, abdomen soft, nontender, nondistended. No tremor. Objective Last Vital Signs Temp 36.5 C 07/26/24 14:49 Pulse 99 H 07/26/24 14:49 Resp 17 07/26/24 14:49 BP 127/78 07/26/24 14:49 Pulse Ox 97 07/26/24 14:49 PAWSS Have you Been Recently Intoxicated or Drunk Within the Last 30 days?: Yes Have you Ever Experienced Previous Episodes of Alcohol Withdrawal?: Yes Have you ever Experienced Withdrawal Seizures?: Yes Have you ever Experienced Delirium Tremens(DT)s?: Yes Have you ever undergone Alcohol Rehabilitation Treatment (i.e, inpt ot outpatient treatment programs)?: Yes Have you ever Experienced Blackouts?: Yes Have you ever Combined Alcohol with other Downers within the last 90 days?: No Have you ever Combined Alcohol with any other Substance of Abuse during the last 90 days?: No Positive Blood Alcohol level on Presentation? [PCS.BAL]: Yes Evidence of Increased Autonomic Activity (i.e. HR>120, tremor, sweating, agitation, nausea)?: Yes Result: 8 Time Spent with Patient Time Spent with Patient: 35-49 minutes Time was spent: preparing to see the patient(eg.review tests), obtaining and/or reviewing separately otained hiistory, ordering medications,tests, procedures, referring, communicating with other health care transitions nurse, indepentently interpreting results, counseling the patient and care coordination
[2024-07-26] MEDS: Enoxaparin 40 MG/0.4 ML SYR SC (17:03)
[2024-07-26] MEDS: Diclofenac 1% Gel 100 GM TUBE TP ×2 (17:41→20:12)
[2024-07-26 19:42] VITALS: BP 121/80; PULSE 91; RESP 19; TEMP 36.9; O2SAT 99
[2024-07-26] MEDS: Insulin Glargine 300 UNITS/3 ML PEN 16 UNITS SC (20:08)
[2024-07-26] MEDS: Atorvastatin 20 MG TAB PO (20:12)
[2024-07-26] MEDS: Allopurinol 100 MG TAB PO (20:12)
[2024-07-26 22:47] VITALS: BP 124/81; PULSE 95; RESP 19; TEMP 36.8; O2SAT 97
--- NOTE | 2024-07-27 | DI.RAD_ITS ---
Exam(s) XR KNEE LT 3V AP,LAT,CIERRA EXAM: XR KNEE LT 3V AP,LAT,CIERRA CLINICAL HISTORY: pain. TECHNIQUE: 2D digital imaging was performed. Three views. COMPARISON: No exams were available for comparison FINDINGS: BONES: No acute fracture is present. There are large subchondral cyst in the medial tibial plateau. No bony destructive lesion is seen. Enthesophyte at the quadriceps insertion. Spurring at the medi al tibial plateau. Mild periarticular spurring elsewhere. JOINTS: Moderate narrowing of the femoral tibial joint spaces. A small joint effusion is seen. SOFT TISSUE: Normal. IMPRESSION: Moderate degenerative changes. Subchondral cysts in the medial tibial plateau. DATA REPOSITORY: RADIATION DOSE DELIVERED:
--- NOTE | 2024-07-27 | DI.RAD_ITS ---
Exam(s) XR KNEE RT 3V AP,LAT,CIERRA EXAM: XR KNEE RT 3V AP,LAT,CIERRA CLINICAL HISTORY: pain limiting mobility. TECHNIQUE: 2D digital imaging was performed. Three views. COMPARISON: CR XR KNEE LT 3V AP,LAT,CIERRA from 07/27/2024 FINDINGS: BONES: No acute fracture is present. No bony destructive lesion is seen. There is a portion of a meta llic nail in the posterior distal femoral metaphysis. Enthesophyte at the quadriceps insertion on th e patella. Small enthesophyte at the tibial tubercle. JOINTS: Moderate narrowing of the femoral tibial joint spaces and moderate periarticular spurring. S purring at the tibial spines and femoral intercondylar notch. Faint chondrocalcinosis. The knee is normally aligned. No joint effusion is seen. SOFT TISSUE: Vascular calcifications. IMPRESSION: Moderate to severe degenerative changes. DATA REPOSITORY: RADIATION DOSE DELIVERED:
[2024-07-27] MEDS: Acetaminophen 325 MG TAB PO ×2 (01:04→20:13)
[2024-07-27] MEDS: oxyCODONE 5 MG TAB PO ×4 (01:33→20:13)
[2024-07-27 03:53] VITALS: BP 108/79; PULSE 96; RESP 19; TEMP 36.9; O2SAT 97
[2024-07-27 06:46] LABS: Abs Immature Grans 0.08 10^3/uL (0.0-0.06); Absolute Basophil Count 0.05 10^3/uL (0.0-0.2); Absolute Eosinophil Count 0.61 10^3/uL (0.0-0.7); Absolute Lymphocyte Count 1.94 10^3/uL (1.2-3.4); Absolute Monocyte Count 0.58 10^3/uL (0.1-0.8); Absolute Neutrophil Count 5.46 10^3/uL (1.2-6.7); Basophils % 0.6 %; HCT 24.5 % (40.0-50.0); HGB 7.8 g/dL (13.5-17.5); Immature Grans % 0.9 %; Lymphocytes % 22.2 %; MCH 27.4 pg (27.0-33.0); MCHC 31.8 % (32.0-36.0); MCV 86 fL (80-95); Monocytes % 6.7 %; Neutrophils % 62.6 %; Platelet Count 322 10^3/uL (130-400); RBC 2.85 10^6/uL (4.36-5.78); RDW 18.2 % (11.8-14.1); WBC 8.72 10^3/uL (4.4-10.8)
[2024-07-27 07:06] LABS: ALT 14 U/L (16-63); AST 11 U/L (15-37); Albumin 2.4 g/dL (3.4-5.0); Alkaline Phosphatase 83 U/L (46-116); Anion Gap 10.1 mmol/L (3-11); BUN 39 mg/dL (7-18); Bilirubin, Total 0.4 mg/dL (0.2-1.0); CO2 21.9 mmol/L (21.0-32.0); CREATININE 1.8 mg/dL (0.70-1.30); Calcium 9.2 mg/dL (8.5-10.1); Chloride 104 mmol/L (98-107); Estimated GFR 41.51 (mL/min/1.73m2); Glucose 123 mg/dL (74-106); Potassium 4.1 mmol/L (3.5-5.1); Sodium 136 mmol/L (136-145)
[2024-07-27 07:15] LABS: Diff Comment Diff Reviewed; Hypochromasia 2+; Polychromasia Present
[2024-07-27 07:20] VITALS: BP 126/84; PULSE 102; RESP 19; TEMP 36.8; O2SAT 94
[2024-07-27] MEDS: DULoxetine 30 MG CAP 90 MG PO (07:52)
[2024-07-27] MEDS: Metoprolol CR 100 MG TABCR PO (07:52)
[2024-07-27] MEDS: Allopurinol 100 MG TAB PO ×2 (08:02→20:13)
[2024-07-27] MEDS: Diclofenac 1% Gel 100 GM TUBE TP ×4 (08:02→20:14)
[2024-07-27] MEDS: Normal Saline Flush 10 ML SYR IVP ×2 (08:53→20:15)
--- NOTE | 2024-07-27 11:12 | PT.INTREAT ---
PT Notes Visit Reasons: Alcohol withdrawal Inpatient Physical Therapy Treatment Note [facility] Date: 07/27/2024 PRECAUTIONS:Standard SUBJECTIVE: Pt reports he is still experiencing discomfort in his knees but not as bad pm Session--- Pt stating he has the same burning feeling but wants to walk and work through it OBJECTIVE: Pt presents seated at edge of bed in am . PM sessin seated in chair with BLE elevated Therapeutic Activities (08958): Direct one-on-one instruction in dynamic activities to improve functional performance. ?? BED MOBILITY/TRANSFERS? Supine-sit: I? Sit-supine: I ? Sit-stand: CGA in AM x 4 trials; CGA from 17 height SBA from >19 ? Stand-sit: SBA ? - dynamic sit and stand balance tasks within CLIVE bending during self care tasks .with SBA stand tasks limited by pain on plantar aspect Provided skilled cues for hand placement and instruction on performance and technique throughout. - Facilitated safe and correct performance of level surface ambulation covering a distance of 30 feet x1 15 ft x 2 using use front wheeled walker with CGA/SBA and wheelchair follow for safety. His distance was limited by increased pain in feet and knee. Denied headache, chest pain, and lightheadedness throughout activity. Minimal verbal cueing provided for AD management, directional changes, and posture. ? PM Session: Facilitated safe and correct performance of level surface ambulation covering a distance of 40 feet x 5 and 50 feet x 2 using use front wheeled walker with SBA and wheelchair follow for safety. His distance was limited by pain in feet . He required sit rest between distances. Denied headache, chest pain, and lightheadedness throughout activity. Minimal verbal cueing provided for AD management, directional changes, and posture. ASSESSMENT:? Pt was very willing to participate with PT. In am, pt fatigued quickly and required multiple rest periods during sit and stand tasks. During pm session, pt demonstrated improvement in quality of gait from small steps with step to pattern with slight right antalgic pattern to reciprocal pattern demonstrating heelstrike with slow purposeful pattern initially to continuous reciprocal pattern on last 40 foot distance. At end of session pt noted reduced burning sensation to plantar aspect of feet . PLAN: Cont as per PT POC. TREATMENT CODE/TIME: [id number] pm session: [id number]/ [id number] DISCHARGE RECOMMENDATION: PT
[2024-07-27 11:18] VITALS: BP 136/78; PULSE 90; RESP 17; TEMP 35.9; O2SAT 99
[2024-07-27] MEDS: Insulin Aspart 300 UNITS/3 ML PEN SC ×2 (12:12→17:20)
[2024-07-27 15:20] VITALS: BP 150/86; PULSE 96; RESP 16; TEMP 36.3; O2SAT 99
--- NOTE | 2024-07-27 16:11 | PDOC.CMPRO ---
Date of service: 07/27/24 Time of Service: 16:11 Care Management Progress Note Progress Note Text Progress Note Text: Mina was sitting up in a chair when CM met with him. He was pleasant in interaction and agreeable to conversation. Mina was admitted with alcohol withdrawal. He was treated with the Phenobarbital protocol and is doing much better. Mina expressed a desire to go to [facility] for MAGNO treatment. He made an initial contact yesterday and they suggested care management follow up to provide necessary clinical information. CM contacted [facility] and faxed the requested documents. CM met with Mina again this afternoon and learned that [facility]gsont[facility] has told him he will have a bed tomorrow. The plan is for Mina to remain hospitalized until tomorrow then discharge. He will drive himself to [facility]. Mina had had a concern about his ability to ambulate safely with a walker and a referral was sent to [facility]. When he met with PT this afternoon however he did much better than previously and now feels comfortable going to [facility] with a walker. Discharge Potential Discharge Needs: Other (MAGNO treatment) Anticipated Barriers to Discharge: None Identified Patient/Family Education Needs: Review discharge instructions, discuss Ask Me Three Transportation: Private vehicle Plan: Mina will likely be discharged tomorrow. He stated he has a bed tomorrow at [facility] and will drive himself there once he picks up his belongings from [place]. He will follow up with the facility providers and plan of care. CM will follow. Social Determinants of Health Screening Social Determinants of health last assessed in clinic: 07/27/24 Will the Patient Participate in the Screening?: Yes Do you worry about having a steady place to live?: no Problems where you live: no known problems In the past 12 months, have you had to go without electric, gas, oil or water in your home?: no 1. Within the past 12 months, we worried whether our food would run out before we got money to buy more.: Never true 2. Within the past 12 months, the food we bought just didn't last and we didn't have money to get more.: Never true Has lack of transportation kept you from medical appointments or from doing things needed for daily living?: no Has anyone in your life made you feel unsafe or unsupported?: no How hard is it for you to pay for the very basics like food, housing, medical care, and heating? Would you say it is:: Not hard at all Do you want help finding or keeping work or a job?: I do not need or want help If for any reason you need help with day-to-day activities such as bathing, preparing meals, shopping, managing finances, etc., do you get the help you need?: I don?t need any help How often do you feel lonely or isolated from those around you?: Never Do you speak a language other than German at home?: No Does the patient want assistance with any of the above?: No
--- NOTE | 2024-07-27 16:26 | W.PM.PROGNOT ---
Date of Service Date of service: 07/27/24 Time of Service: 16:28 Assessment and Plan Assessment and plan (1) Alcohol abuse with withdrawal: Status: Acute Assessment and plan: - Patient presented to the ED with concerns for alcohol with drawl seeking detox - Patient was having auditory hallucinations which he states is normal during periods of withdrawal - He received phenobarbital and reached max dosing, stable over the past 24-48 hours, d/c protocol - Calling for placement in [facility] prior to being able to return to [facility]. (2) Chronic kidney disease: Status: Chronic Assessment and plan: - Creatinine in at or below baseline at this point. He has resumed his home medications, remains stable. (3) High anion gap metabolic acidosis: Status: Acute Assessment and plan: Anion gap 17, likely secondary to significant-alcohol intoxication with alcohol level of 188. AG closed and stable this morning. (4) Type 2 diabetes mellitus with mild nonproliferative diabetic retinopathy without macular edema, bilateral: Status: Acute Assessment and plan: - Sliding scale insulin, carb consistent diet. May benefit from GLP-1 given some evidence of benefit with AUD as well. (5) Leukocytosis: Status: Acute Assessment and plan: -patient had leukocytosis on admission with WBC ~18, had fever, but resolved without antibiotics, likely simply inflammatory state. -WBC normalized (6) Anemia in chronic kidney disease (CKD): Status: Acute Assessment and plan: stable but severe. Get iron levels. If normal he would benefit from EPO (7) Osteoarthritis of both knees: Status: Acute Assessment and plan: Avoid NSAIDs with CKD, some improvement with topical diclofenac. Given prn oxycodone while inpatient but not appropriate snf with AUD. Never worked up, so get XR and can consider steroid injection as well. He is worried about his mobilty living in his car/homeless. Will try SNF placement and continue PT. Subjective Subjective Patient reports: no new complaints, tolerating a regular diet and voiding w/o difficulty; denies diarrhea, vomiting, shortness of breath or fever Interval history since last seen: Not scoring on CIWA Worked with PT, but in pain with ambulation He feels better overall but is worried that he won't be safe going home with knee pain limiting mobility. This happens each time he is immobile for a few days, pain is bad and stiff. Diclofenac and oxycodone did help some. Exam Narrative Exam Narrative: MIldly anxious appearing gentleman laying in bed, ANO x 4, heart borderline tachycardic with rates in the low 90s, lungs clear to auscultation bilaterally, abdomen soft, nontender, nondistended. No tremor. Knees with slight effusion ana and joing line tenderness, no heat or effusion, no deformity. Objective Last Vital Signs Temp 36.3 C L 07/27/24 15:20 Pulse 96 H 07/27/24 15:20 Resp 16 07/27/24 15:20 BP 150/86 H 07/27/24 15:20 Pulse Ox 99 07/27/24 15:20 Laboratory Results - last 24 hr 07/27/24 06:30 WBC 8.72 RBC 2.85 L Hgb 7.8 L Hct 24.5 L MCV 86 MCH 27.4 MCHC 31.8 L RDW 18.2 H Plt Count 322 MPV 10.0 Immature Gran % 0.9 Neutrophils % 62.6 Lymphocytes % 22.2 Monocytes % 6.7 Eosinophils % 7.0 Basophils % 0.6 Nucleated RBC % 0.0 Absolute Neutrophils 5.46 Absolute Lymphocytes 1.94 Absolute Monocytes 0.58 Absolute Eosinophils 0.61 Absolute Basophils 0.05 RBC Morphology See Below Polychromasia Present Hypochromasia 2+ Sodium 136 Potassium 4.1 Chloride 104 Carbon Dioxide 21.9 Anion Gap 10.1 BUN 39 H Creatinine 1.8 H Est GFR (CKD-EPI 2020) 41.51 Glucose 123 H Calcium 9.2 Total Bilirubin 0.4 AST 11 L ALT 14 L Alkaline Phosphatase 83 Total Protein 7.0 Albumin 2.4 L PAWSS Have you Been Recently Intoxicated or Drunk Within the Last 30 days?: Yes Have you Ever Experienced Previous Episodes of Alcohol Withdrawal?: Yes Have you ever Experienced Withdrawal Seizures?: Yes Have you ever Experienced Delirium Tremens(DT)s?: Yes Have you ever undergone Alcohol Rehabilitation Treatment (i.e, inpt ot outpatient treatment programs)?: Yes Have you ever Experienced Blackouts?: Yes Have you ever Combined Alcohol with other Downers within the last 90 days?: No Have you ever Combined Alcohol with any other Substance of Abuse during the last 90 days?: No Positive Blood Alcohol level on Presentation? [PCS.BAL]: Yes Evidence of Increased Autonomic Activity (i.e. HR>120, tremor, sweating, agitation, nausea)?: Yes Result: 8 Time Spent with Patient Time Spent with Patient: 35-49 minutes Time was spent: preparing to see the patient(eg.review tests), obtaining and/or reviewing separately otained hiistory, ordering medications,tests, procedures, referring, communicating with other health intensive care specialist, indepentently interpreting results, counseling the patient and care coordination
[2024-07-27 18:53] LABS: Iron 15 ug/dL (65-175); Total Iron Binding Capacity 229 ug/dL (250-450); Transferrin Sat 7 % (20-55)
[2024-07-27 19:18] VITALS: BP 143/82; PULSE 108; RESP 24; TEMP 37.1; O2SAT 97
[2024-07-27] MEDS: Atorvastatin 20 MG TAB PO (20:13)
[2024-07-27] MEDS: Insulin Glargine 300 UNITS/3 ML PEN 16 UNITS SC (20:14)
[2024-07-27 23:16] VITALS: BP 132/78; PULSE 101; RESP 20; TEMP 36.8; O2SAT 97
[2024-07-28] MEDS: Acetaminophen 325 MG TAB PO ×2 (02:10→08:37)
[2024-07-28] MEDS: oxyCODONE 5 MG TAB PO ×2 (02:11→08:37)
[2024-07-28 02:13] VITALS: BP 142/90; PULSE 104; RESP 20; TEMP 36.8; O2SAT 96
[2024-07-28 07:16] VITALS: BP 141/86; PULSE 95; RESP 16; TEMP 36.6; O2SAT 94
[2024-07-28] MEDS: Normal Saline Flush 10 ML SYR IVP ×2 (08:27→12:27)
[2024-07-28] MEDS: Diclofenac 1% Gel 100 GM TUBE TP ×2 (08:27→13:04)
[2024-07-28] MEDS: Metoprolol CR 100 MG TABCR PO (08:28)
[2024-07-28] MEDS: Allopurinol 100 MG TAB PO (08:28)
[2024-07-28] MEDS: DULoxetine 30 MG CAP 90 MG PO (08:28)
--- NOTE | 2024-07-28 10:40 | PT.INTREAT ---
PT Notes Visit Reasons: Alcohol withdrawal Inpatient Physical Therapy Treatment Note [facility] Date: 07/28/2024 PRECAUTIONS:Standard SUBJECTIVE: Pt reports he had a good night , he still has some discomfort in knees and feet but not as bad. OBJECTIVE: Pt presents seated at edge of bed in am . Therapeutic Activities (00012): Direct one-on-one instruction in dynamic activities to improve functional performance. ?? BED MOBILITY/TRANSFERS? Supine-sit: I? Sit-supine: I ? Sit-stand: I Stand-sit: I? - dynamic sit and stand balance tasks within CLIVE bending during self care tasks .with SBA stand tasks limited by pain on plantar aspect Provided skilled cues for hand placement and instruction on performance and technique throughout. - Facilitated safe and correct performance of level surface ambulation covering a distance of 300 feet x1 200 feet x 1 with one sit rest per distance using use front wheeled walker with supervision and wheelchair follow for safety. His distance was limited by increased pain in feet and knee. Denied headache, chest pain, and lightheadedness throughout activity. Minimal verbal cueing provided for AD management, directional changes, and posture. ? ASSESSMENT:? Pt was very willing to participate with PT. Pt with progression with ambulation with FWW reciprocal pattern with out antalgic right. Pt with increased speed of walk. able to perform distances with only one sit rest.Pt has FWW at home. PLAN: Cont as per PT POC. TREATMENT CODE/TIME: 89613/[id number] DISCHARGE RECOMMENDATION: PT
--- NOTE | 2024-07-28 11:32 | W.PM.DS.N ---
Date of service: 08/04/24 Time of Service: 11:32 DS: Diagnosis Discharge Diagnosis (1) Alcohol abuse with withdrawal: Status: Acute (2) Chronic kidney disease: Status: Chronic (3) High anion gap metabolic acidosis: Status: Acute (4) Type 2 diabetes mellitus with mild nonproliferative diabetic retinopathy without macular edema, bilateral: Status: Acute (5) Leukocytosis: Status: Acute (6) Anemia in chronic kidney disease (CKD): Status: Acute (7) Osteoarthritis of both knees: Status: Acute Discharge Plan Disposition Patient Disposition: Home Condition: Good Discharge Details Reason For Visit: Alcohol withdrawal Admit Date/Time: 07/23/24 12:02 Admit Provider: Chaparro Brown Attending Provider: Chaparro Brown Primary Care Provider: Mel Llamas Hospital Course Hospital Course: 63-year-old male with past medical history of IDDM, CKD, hyperlipidemia, significant alcohol use disorder with previous hospitalizations for alcohol withdrawal and reported alcohol withdrawal seizures who presents to the emergency department for detox. He was treated with phenobarbital withdrawal protocol. He had hallucinations that resolved. He had an anion gap acidosis that resolved. Low magnesium was supplemented. He had a fever to 102 over the first day. He had no signs of focal infection. The fever resolved without antibiotics. He had worsening of his chronic knee pain when walking. XR did confirm significant OA bilaterally, which was consistent with his exam. He worked with PT. He was started on topical diclofenac, which he should continue. He declined steroid injection. He did respond to oxycodone but this was not continued. His CKD was near baseline. He had significant anemia, though it has been stable since 07/01, drifting down from 9.7 to 7.8. There was no active bleeding noted. Transferrin saturation was 7%. He was given a dose of IV derismaltose iron replacement. He was started on pantoprazole to treat possible alcoholic gastritis. He should have EGD and colonoscopy as an outpatient to assess the iron deficiency. He had a 1cm polyp on his colonoscopy in 2019 and so is due for this. He was staying at [facility] and could not return due to his relapse. Intake was arranged at [facility] on the day of discharge. PCP follow up: Follow CBC, BMP, Magnesium in 1-2 weeks. Coordinate referral for EGD and colonoscopy for iron deficiency anemia. Assess need for additional PPI therapy Home Meds and New Rx's Prescriptions: New diclofenac sodium [Arthritis Pain (diclofenac)] 1 % gel 2 g topical QID Qty: 100 3RF Rx Instructions: apply to ana knees pantoprazole 40 mg tablet,delayed release (DR/EC) 40 mg PO DAILY Qty: 20 0RF Continued metoprolol succinate 100 mg tablet extended release 24 hr 100 mg PO DAILY Qty: 90 3RF (DME) Embrace DELLA test strips Strip See Rx Instructions .Route Patient Comments: Will need the embrace strips that match his meter-- Rx Instructions: As directed to fit his meter-- atorvastatin 20 mg tablet See Rx Instructions .ROUTE .COMPLEX Qty: 90 3RF Dose Instruction: TAKE ONE TABLET BY MOUTH AT BEDTIME FOR CHOLESTEROL OR DIABETES Rx Instructions: TAKE ONE TABLET BY MOUTH AT BEDTIME FOR CHOLESTEROL OR DIABETES acetaminophen 325 mg capsule 650 mg PO Q6H PRN allopurinol 100 mg tablet 100 mg PO BID insulin lispro [Humalog KwikPen Insulin] 100 unit/mL insulin pen 1 sliding scale dose subcut QAC Rx Instructions: Sliding Scale: 0-150 0 units, 151-200 2 units, 201-250 4 units, 251-300 6 units,301-350 8 units, 351-400 10 units and call PCP if glucose is greater than 400 No Action (DME) lancets Misc See Rx Instructions .MEDSUPPLY Rx Instructions: As directed to check blood glucose four times daily. On insulin. Dispense covered brand. (DME) Dexcom G7 Smoking Tobacco Packing Machine Hand Misc See Rx Instructions .Route Qty: 1 0RF Rx Instructions: As directed (DME) Dexcom G7 Sensor Device See Rx Instructions .Route Qty: 1 0RF Rx Instructions: As directed (DME) OneTouch Verio test strips Strip See Rx Instructions .ROUTE .COMPLEX Qty: 400 3RF Dose Instruction: TEST BLOOD SUGAR FOUR TIMES A DAY Rx Instructions: TEST BLOOD SUGAR FOUR TIMES A DAY (DME) pen needle, diabetic [Unifine Pentips Plus] 32 gauge x 5/32 needle See Rx Instructions .ROUTE .COMPLEX Qty: 360 3RF Dose Instruction: USE FOUR TIMES DAILY FOR GOAL A1C<7 Rx Instructions: USE FOUR TIMES DAILY FOR GOAL A1C<7 duloxetine 30 mg capsule,delayed release(DR/EC) See Rx Instructions PO DAILY Rx Instructions: 30mg in AM and 60mg at HS orally daily; insulin glargine 100 unit/mL (3 mL) insulin pen 16 unit subcut QHS Patient Comments: 16 units at HS per pt Discharge Instructions Instructions: Alcohol Use Disorder (DC) Additional Instructions: Continue the diclofenac cream on the knees. You can also use it on small joints. You need to have a repeat colonoscopy and endoscopy to check for internal bleeding. You mentioned you had this at [facility], but you had your last colonoscopy at [facility]. You should take stomach acid medication like pantoprazole (or omeprazole over the counter) to protect the stomach. Stand Alone Forms: Nursing Discharge Form Referrals: Mel Llamas NP [Primary Care Provider] - 08/11/24 4:30 pm (Follow up ) Activity:: Activity as Tolerated Equipment/Supplies:: No Equipment Needed Diet:: As Tolerated Discharge Orders Discharge Orders: Discharge Order (Routine); Ordered 07/28/24 Ordered By: Toby Nuñez Discharge Data Discharge Date/Time-TO BE ENTERED AT DEPARTURE: 07/28/24 14:02 DS: Summary Time Spent with Patient providing and/or coordinating discharge services: Greater than 30 minutes Status at Discharge Functional status at discharge: independent ambulation Overall status at discharge: patient is back to baseline Mental Status: mental status grossly normal Speech and Movement: speech and movement normal Mood: congruent mood Affect: normal affect Quality:SDOH Health Related Social Needs: No Data to Display Exam Narrative Exam Narrative: MIldly anxious appearing gentleman laying in bed, ANO x 4, heart borderline tachycardic with rates in the low 90s, lungs clear to auscultation bilaterally, abdomen soft, nontender, nondistended. No tremor. Knees with slight effusion ana and joint line tenderness and limited ROM, no heat or effusion, no deformity. Psych Mental Status: mental status grossly normal Speech and Movement: speech and movement normal Mood: congruent mood Affect: normal affect DS: Data Vitals/I&O Vitals and I&O: Vital Signs Temperature 36.6 C 07/28/24 07:16 Temperature Source Temporal Artery Scan 07/28/24 07:16 Pulse 95 H 07/28/24 07:16 Pulse 97 H 07/25/24 15:30 Respiratory Rate 16 07/28/24 07:16 Respiratory Effort Normal, Non-Labored 07/23/24 13:29 Respiratory Depth Normal 07/23/24 13:29 Respiratory Pattern Normal 07/23/24 13:29 Blood Pressure 141/86 H 07/28/24 07:16 Blood Pressure Mean 104 07/28/24 07:16 Blood Pressure Position Supine 07/23/24 13:29 Pulse Oximetry 94 07/28/24 07:16 Oxygen Delivery Method Room Air 07/28/24 07:16 Oxygen Flow Rate 0 07/28/24 07:16 Pain Level 7 07/28/24 08:37 Comment Patient stated that knee pain woke him up. Nurse was notified. 07/28/24 02:13 Comment 1 L initiated at this time 07/23/24 12:01 Intake & Output 07/27/24 07/27/24 07/28/24 11:59 23:59 11:59 Intake Total 110 / 340 230 / 340 10 / 10 Output Total 850 / 1240 390 / 1240 1400 / 1400 Balance -740 / -900 -160 / -900 -1390 / -1390 Weight 98.4 kg Intake: IV 110 / 120 10 / 120 10 / 10 Oral 220 / 220 Output: Urine 850 / 1240 390 / 1240 1400 / 1400 Other: Urine Color Yellow Yellow Yellow Urine Appearance Cloudy Clear Clear Urine Odor Normal None None Comment Patient voids ind. in urinal. Data Completed and Pending Labs on day of discharge: Labs from last 24 hours 07/27/24 17:45 Iron 15 L TIBC 229 L Transferrin % Sat 7 L Preliminary micro results at discharge 07/23/24 19:15 Blood Blood Culture - Preliminary NO GROWTH 96 HOURS 07/23/24 19:27 Blood Blood Culture - Preliminary NO GROWTH 96 HOURS PFSH All Active Problems (Updated 07/26/24 @ 15:03 by Toby Nuñez) Osteoarthritis of both knees (Acute) Anemia in chronic kidney disease (CKD) (Acute) Leukocytosis (Acute) High anion gap metabolic acidosis (Acute) Anemia (Chronic) Chronic kidney disease (Chronic) Hypomagnesemia (Acute) Hallucinations (Acute) Alcohol abuse with withdrawal (Acute) Scrotal abscess (Acute) Acute renal failure due to tubular necrosis (Acute) 05/21/2024 Acute hyperkalemia (Acute) Melena (Acute) Single kidney (Acute) Steatosis (Acute) Age-related nuclear cataract, bilateral (Acute ~10/03/23) [place] Type 2 diabetes mellitus with mild nonproliferative diabetic retinopathy without macular edema, bilateral (Acute ~10/03/23) [place] Misuse of prescription only drugs (Acute ~03/2023) RX Gabapentin Diabetic peripheral neuropathy (Chronic) B12 deficiency (Acute) Alcohol use disorder (Chronic) CKD (chronic kidney disease) stage 4, GFR 15-29 ml/min (Acute) Lamellar macular hole of both eyes (Acute 10/25/21) Type 1 diabetes, controlled, with neuropathy (Chronic ~05/2017) Adult onset, diagnosed 05/2017 [facility] [address]. Douglas--recommend GLP1 Personal goal A1C <7% Secondary hyperparathyroidism (Acute ~05/2021) 05/29/21 [facility] Nephrology Family history of prostate cancer (Chronic) F Hyperlipidemia (Acute) Medical History Diverticula of colon History of elevated PSA Per [place] Records--01/14/2019 6.41, 04/28/2018 6.32; +Fam hx prostate cancer in F Solitary left kidney [facility] Nephro (initial 07/2020); s/p nephrectomy on R 2004 renal cell cancer; partial nephrectomy on L 2007 Hypertension RX Lisinopril (stopped due to creatinine) History of Yodit's gangrene Microcytic anemia Sinus tachycardia Fever Thrombosis superficial vein, arm, acute Gallstones Kidney lesion, [place], left Colitis due to Clostridium difficile Skin ulcer of scrotum (~2022) De Quervain's tenosynovitis, left 40 mg Depo-Medrol injection: 04/04/2022 Metabolic acidosis Alcohol intoxication (~12/02/21) Osteoarthritis of elbows, bilateral Lesion of bone of left forearm proximal radius lesion Tubular adenoma of colon 08/2018 colonoscopy [facility]; recall 5y History of alcohol use disorder since 1989 with intermittent sobriety History of opioid abuse s/p surgeries; visiting brother 08/2021 ([facility] admission) History of renal cell cancer s/p nephrectomy Chronic gingivitis, plaque induced Dentist Bilateral carpal tunnel syndrome Polyneuropathy associated with underlying disease DM Surgical History H/O skin graft [facility] 07/12/22 Scrotal Abscess 07/15/22 Skin Graft with Bolster removal H/O arthroscopy of knee Remotely--both knees at some point; he cannot recall what, but thinks meniscal History of nephrectomy, right (~03/2004) Renal cell cancer H/O partial nephrectomy (~04/2007) left Family History Mother , 54yo breast cancer Alcohol abuse Breast cancer Depression Substance abuse Father , ~70yo prostate cancer Alcohol abuse Prostate cancer Substance abuse Sister , throat caner (nicotine use) Alcohol abuse Cancer Cervical Substance abuse Social History Smoking/Tobacco Use Status: Never Smoking risk assessment performed?: Yes Alcohol Intake: current Alcohol Intake frequency: a few times a month Alcohol type: beer and hard liquor Previous attempts at quittin Counseling given: Yes ([facility]) Drug use: Binges Substance use type: does not use and opiates Details: no IV drug use Adopted: No Caregiver/Support person: No Foster care: No Household members: other Details: Sober Living Facility Housing: other Number of Children: 4 number of grandchildren: 4 Communication Needs: None Education Level: college Do you need help understanding health information?: Rarely 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) Pets and animals: Yes Pets and animals: cat(s) Sexually active: No Do you think of yourself as: straight/heterosexual Current gender identity: male What is your relationship status?: How often do you talk on the phone with friends or family?: three or more times per week How often do you get together with friends or relatives?: three or more times per week How often do you attend methodist or mormonism services?: 4 or more times per year Do you belong to any clubs or organized social groups?: no Panel score (0-1 are the most socially isolated patients): 2 What type of physical activity do you participate in: walking, bicycling and other Details: EXERCISE ON STATIONARY BIKE Duration: < 15 minutes/day Frequency: 3-4 times per week Erin/Orthodox: Hindu Agree to transfusion: No Seatbelt use: always Helmet use: Yes Drive intox or ride w/intox cdl flatbed truck driver: No Water heater temp set <120 deg: Yes Working smoke detector in home: Yes Fire extinguisher in home: Yes Do you feel safe at home: Yes Do you feel safe in your relationship?: Yes Time Spent with Patient Time Spent with Patient: <45 minutes Time was spent: preparing to see the patient(eg.review tests), obtaining and/or reviewing separately otained hiistory, ordering medications,tests, procedures, referring, communicating with other health patient care technician instructor, indepentently interpreting results, counseling the patient and care coordination
[2024-07-28 11:36] VITALS: BP 130/93; PULSE 97; RESP 15; TEMP 36.6; O2SAT 96
[2024-07-28] MEDS: Pantoprazole 40 MG TABCR PO (11:48)
[2024-07-28] MEDS: Insulin Aspart 300 UNITS/3 ML PEN SC (11:54)
[2024-07-28] MEDS: FERUMOXYTOL 510 MG in Normal Saline 50 ML 134 MG IVPB (12:23)
--- NOTE | 2024-07-28 12:36 | CMDISCH_ITS ---
Date of service: 07/28/24 Time of Service: 12:36 LACE Index Scoring Tool Questions: Length of Stay (in days): 4 - 6 Was the patient admitted via the E.D.?: Yes Comorbidities: Diabetes w/o Complication, Any Tumor (renal cancer) and Liver or Renal Disease E.D. Visits: 3 Answers: Total Score: 15 Risk of Readmission: High Risk Care Management Discharge Plan Reason for Hospitalization: ETOH Discharge Plan: Mina will be discharged later today. He reportedly received a call from [email or web address] today and was told he has a bed for tomorrow. Mina plans to get a hotel room for tonight and drive himself to [place] tomorrow. He will follow up with the facility providers and plan of care. Patient/Family Education Needs: Review of discharge instructions, limitations, follow up plan and discuss Ask Me Three [facility] Health Related Social Needs: No Data to Display
== END 2024-07-28 14:02 | disposition home or self-care (01) | DRG 897 ==
LOC: ER 12:00 → ICU 13:33 → MS 07-26 07:38
PROVIDERS: Family Medicine; Admitting Provider Family Medicine; Emergency Provider Student in an Organized Health Care Education/Training Program; PCP Nurse Practitioner Adult Health; Responsible Provider Family Medicine; Visit Provider Family Medicine
DX: F10.132 Alcohol abuse with withdrawal with perceptual disturbance (principal); E87.29 Other acidosis; N18.4 Chronic kidney disease, stage 4 (severe); N25.81 Secondary hyperparathyroidism of renal origin; F10.151 Alcohol abuse with alcohol-induced psychotic disorder with hallucinations; K29.20 Alcoholic gastritis without bleeding; E11.3293 Type 2 diabetes mellitus with mild nonproliferative diabetic retinopathy without macular edema, bilateral; E11.22 Type 2 diabetes mellitus with diabetic chronic kidney disease; D63.1 Anemia in chronic kidney disease; E11.42 Type 2 diabetes mellitus with diabetic polyneuropathy; I12.9 Hypertensive chronic kidney disease with stage 1 through stage 4 chronic kidney disease, or unspecified chronic kidney disease; D72.829 Elevated white blood cell count, unspecified; R50.9 Fever, unspecified; M17.0 Bilateral primary osteoarthritis of knee; E83.42 Hypomagnesemia; Z79.4 Long term (current) use of insulin; E78.5 Hyperlipidemia, unspecified; Z90.5 Acquired absence of kidney; Z85.528 Personal history of other malignant neoplasm of kidney; E53.8 Deficiency of other specified B group vitamins; Y90.6 Blood alcohol level of 120-199 mg/100 ml
CPT/HCPCS: 00123; 36415; 73562; 80048; 80053; 80307; 82805; 84145; 85027; 87040; 87637; 93005; 97110; 97162; 97530; J1650; 71045; 80320; 81003; 81015; 83540; 83550; 83605; 83735; 84484; 85025; 93010; 99223; 99232; 99233; 99239; 99291; J1815; J2060; J2560; J3411; J3475; Q0138

== ENCOUNTER 2024-07-29 12:43 | Inpatient (IN) | payer MEDICARE, SELFPAY ==
[2024-07-29] VITALS (56 sets, daily range): BP systolic 115–183; BP diastolic 64–89; PULSE 107–129; RESP 14–28; TEMP 36.4–37.6; O2SAT 87–98
--- NOTE | 2024-07-29 15:23 | W.ED.GENAD ---
Discharge Plan Disposition Patient Disposition: Admit to [facility] Condition: Improving Discharge Details Chief Complaint: ETOHWithdr Clinical Impression: Alcohol abuse with withdrawal, Anemia in chronic kidney disease (CKD) Primary Care Provider: Mel Llamas ED Provider: Lexie Ramirez Home Meds and New Rx's Prescriptions: No Action metoprolol succinate 100 mg tablet extended release 24 hr 100 mg PO DAILY Qty: 90 3RF (DME) lancets Misc See Rx Instructions .MEDSUPPLY Rx Instructions: As directed to check blood glucose four times daily. On insulin. Dispense covered brand. (DME) Embrace DELLA test strips Strip See Rx Instructions .Route Patient Comments: Will need the embrace strips that match his meter-- Rx Instructions: As directed to fit his meter-- (DME) Dexcom G7 Respiratory Medicine Physician Misc See Rx Instructions .Route Qty: 1 0RF Rx Instructions: As directed (DME) Dexcom G7 Sensor Device See Rx Instructions .Route Qty: 1 0RF Rx Instructions: As directed (DME) OneTouch Verio test strips Strip See Rx Instructions .ROUTE .COMPLEX Qty: 400 3RF Dose Instruction: TEST BLOOD SUGAR FOUR TIMES A DAY Rx Instructions: TEST BLOOD SUGAR FOUR TIMES A DAY (DME) pen needle, diabetic [Unifine Pentips Plus] 32 gauge x 5/32 needle See Rx Instructions .ROUTE .COMPLEX Qty: 360 3RF Dose Instruction: USE FOUR TIMES DAILY FOR GOAL A1C<7 Rx Instructions: USE FOUR TIMES DAILY FOR GOAL A1C<7 atorvastatin 20 mg tablet See Rx Instructions .ROUTE .COMPLEX Qty: 90 3RF Dose Instruction: TAKE ONE TABLET BY MOUTH AT BEDTIME FOR CHOLESTEROL OR DIABETES Rx Instructions: TAKE ONE TABLET BY MOUTH AT BEDTIME FOR CHOLESTEROL OR DIABETES acetaminophen 325 mg capsule 650 mg PO Q6H PRN allopurinol 100 mg tablet 100 mg PO BID duloxetine 30 mg capsule,delayed release(DR/EC) See Rx Instructions PO DAILY Rx Instructions: 30mg in AM and 60mg at HS orally daily; insulin lispro [Humalog KwikPen Insulin] 100 unit/mL insulin pen 1 sliding scale dose subcut [facility] Rx Instructions: Sliding Scale: 0-150 0 units, 151-200 2 units, 201-250 4 units, 251-300 6 units,301-350 8 units, 351-400 10 units and call PCP if glucose is greater than 400 insulin glargine 100 unit/mL (3 mL) insulin pen 16 unit subcut QHS Patient Comments: 16 units at HS per pt diclofenac sodium [Arthritis Pain (diclofenac)] 1 % gel 2 g topical QID Qty: 100 3RF Rx Instructions: apply to ana knees pantoprazole 40 mg tablet,delayed release (DR/EC) 40 mg PO DAILY Qty: 20 0RF HPI General Mode of arrival: EMS. Date/Time Provider Initiated Documentation: 07/29/24 13:54. Limitations to Documentation: no limitations. Information obtained by: patient and old records reviewed. HPI Narrative: This is a 63-year-old male patient with a past medical history significant for alcohol use disorder with a history of DTs and alcohol withdrawal seizures. History of CKD, diabetes on insulin, who was discharged from this facility yesterday after an admission for alcohol withdrawal requiring phenobarbital administration, representing for care for alcohol withdrawal. He reports that when he left this facility he immediately started drinking, states that he consumed half a gallon of vodka and 616 ounce beers. He believes he stopped drinking around 2 AM. He states that he fell to the floor, endorses some rug burn like sensation to his bilateral knees but does not believe he sustained any other injuries or head strike. He does not take blood thinning medications. Summoned EMS because he was starting to feel shaky and experiencing auditory and visual hallucinations, which is typical for him when he experiences alcohol withdrawal. Denies vision changes, has not eaten since he was in the hospital yesterday. They deny hotel last night due to homelessness. The patient had a plan to go to [facility], was unable to be accepted today because he had been drinking. The patient is interested in undergoing management of alcohol withdrawal, does not use any other substances. Related Data Home Medications ?Medication ?Instructions ?Recorded ?Confirmed lancets 08/03/20 07/29/24 blood-glucose sensor (Dexcom G7 #1 ea 08/26/22 07/29/24 Sensor device) blood-glucose,tax appraiser,cont #1 ea 08/26/22 07/29/24 (Dexcom G7 Respiratory Medicine Physician) blood sugar diagnostic (Embrace 11/29/22 07/29/24 DELLA test strips) blood sugar diagnostic (OneTouch #400 strips 12/02/22 07/29/24 Verio test strips) pen needle, diabetic 32 gauge x #360 ea 02/11/23 07/29/24 (Unifine Pentips Plus) atorvastatin 20 mg tablet See Rx Instructions .Route 03/01/24 07/29/24 .COMPLEX #90 tabs acetaminophen 325 mg capsule 650 mg PO Q6H PRN 07/09/24 07/29/24 allopurinol 100 mg tablet 100 mg PO BID 07/09/24 07/29/24 duloxetine 30 mg capsule,delayed See Rx Instructions PO DAILY 07/09/24 07/29/24 release insulin glargine 100 unit/mL (3 16 unit subcut QHS 07/09/24 07/29/24 mL) subcutaneous pen insulin lispro 100 unit/mL 1 sliding scale dose subcut QAC 07/09/24 07/29/24 subcutaneous pen (Humalog KwikPen (U-100) Insulin) metoprolol succinate 100 mg 100 mg PO DAILY #90 tabs 07/14/24 07/29/24 tablet,extended release 24 hr diclofenac sodium 1 % topical gel 2 g topical QID #100 grams 07/28/24 07/29/24 (Arthritis Pain (diclofenac)) pantoprazole 40 mg tablet,delayed 40 mg PO DAILY #20 tabs 07/28/24 07/29/24 release Previous Rx's ?Medication ?Instructions ?Recorded blood-glucose sensor (Dexcom G7 #1 ea 08/26/22 Sensor device) blood-glucose,tax appraiser,cont #1 ea 08/26/22 (Dexcom G7 Respiratory Medicine Physician) blood sugar diagnostic (OneTouch #400 strips 12/02/22 Verio test strips) pen needle, diabetic 32 gauge x #360 ea 02/11/23 (Unifine Pentips Plus) atorvastatin 20 mg tablet See Rx Instructions .Route 03/01/24 .COMPLEX #90 tabs metoprolol succinate 100 mg 100 mg PO DAILY #90 tabs 07/14/24 tablet,extended release 24 hr diclofenac sodium 1 % topical gel 2 g topical QID #100 grams 07/28/24 (Arthritis Pain (diclofenac)) pantoprazole 40 mg tablet,delayed 40 mg PO DAILY #20 tabs 07/28/24 release Allergies Allergy/AdvReac Type Severity Reaction Status Date / Time lactose intolerant AdvReac Mild Diarrhea Uncoded 07/29/24 12:53 General Stated Complaint: ETOHWithdr GALILEO: 2 Exam Narrative Exam Narrative: Gen: awake and alert, appears uncomfortable HEENT: PERRL, EOMs full and without nystagmus. External ears and nose normal, mucous membranes moist. Neck: Supple, full range of motion, no observable masses Lungs: No increased work of breathing, lung sounds clear and equal bilaterally without wheezes, rhonchi, or rales. CV: Heart with tachycardic rate but regular rhythm, no murmurs auscultated. Strong and symmetrical radial pulses. Abdomen: Soft, nondistended, non-tender to palpation. No rigidity, rebound tenderness, or guarding. MSK: No joint swelling, no redness. Full ROM without limitation, no external traumatic findings. Skin: No rashes or lesions to visualized skin. Normal color, warm, and dry. Neuro: Cranial nerves II-XII intact and symmetrical bilaterally, horizontal nystagmus bilaterally, extinguishable. 5/5 strength in all muscle groups x4 extremities. No sensory deficits. Ambulates with steady gait. The patient has a tremor with outstretched hands and very mild tongue fasciculations. No asterixis Psych: Appropriate for situation. Course Vital Signs Vital signs: Vital Signs Temperature 36.4 C 07/29/24 12:45 Pulse 111 H 07/29/24 12:45 Respiratory Rate 24 07/29/24 12:45 Blood Pressure 145/79 H 07/29/24 12:45 Pulse Oximetry 98 07/29/24 12:45 Temperature 36.4 C 07/29/24 12:45 Pulse 111 H 07/29/24 15:20 Pulse 111 H 07/29/24 15:20 Respiratory Rate 20 07/29/24 15:20 Respiratory Pattern Normal 07/29/24 14:53 Blood Pressure 145/79 H 07/29/24 12:45 Blood Pressure Position Sitting 07/29/24 12:45 Pulse Oximetry 96 07/29/24 15:20 Oxygen Delivery Method Room Air 07/29/24 12:45 Oxygen Flow Rate 0 07/29/24 12:45 Medical Decision Making This is a 63-year-old male patient presenting for evaluation of alcohol withdrawal. My differential includes but is not limited to acute alcohol withdrawal, considered ongoing intoxication, metabolic and electrolyte derangement, dehydration, kidney injury, anemia, malnutrition. This was a low mechanism fall without head strike or traumatic findings on head or neck exam, and I have a low concern for intracranial hemorrhage or skull fracture. The patient's CIWA score on initial evaluation is 21, is consistent with moderate to severe withdrawal. He will obtain laboratory studies to include CBC, CMP, magnesium, troponin, ethanol, urinalysis, and UDS. I will obtain an EKG. We will provide the patient with a banana bag, and I will initiate the phenobarbital protocol, 10/kg per CIWA scoring, with an initial dose of 4 mg/kg with subsequent doses to be given at 3-hour intervals. - I reviewed the patient's laboratory studies. His CBC notes a mild leukocytosis to 11.2, hemoglobin of 10.6, and platelet count of 491. I am suspicious for hemoconcentration, as his most recent hemoglobin was 7.8 and all cell lines are up. Urinalysis with trace blood and bacteriuria, but in the absence of urinary tract infection symptoms we will hold on empiric antibiosis. Metabolic panel without significant electrolyte derangements, BUN and creatinine slightly above the patient's baseline at 54 and 2.2 respectively. No liver dysfunction, troponin negative, and without interval increase on 1 hour delta recheck. The patient had significant improvement in his withdrawal symptoms after his phenobarbital, I reached out to the hospitalist who has graciously accepted this patient for readmission for management of his complicated alcohol withdrawal, patient remained hemodynamically improved while under my care and was transferred from this department without incident. Lexie Ramirez MD Quality:SDOH Health Related Social Needs: No Data to Display PFSH All Active Problems (Updated 07/29/24 @ 19:20 by Lexie Ramirez MD) Osteoarthritis of both knees (Acute) Anemia in chronic kidney disease (CKD) (Acute) Chronic kidney disease (Chronic) Hypomagnesemia (Acute) Alcohol abuse with withdrawal (Acute) Scrotal abscess (Acute) Acute renal failure due to tubular necrosis (Acute) 05/21/2024 Acute hyperkalemia (Acute) Melena (Acute) Single kidney (Acute) Steatosis (Acute) Age-related nuclear cataract, bilateral (Acute ~10/03/23) [place] Type 2 diabetes mellitus with mild nonproliferative diabetic retinopathy without macular edema, bilateral (Acute ~10/03/23) [place] Misuse of prescription only drugs (Acute ~03/2023) RX Gabapentin Hyperlipidemia (Acute) Secondary hyperparathyroidism (Acute ~05/2021) 05/29/21 [facility] CKD (chronic kidney disease) stage 4, GFR 15-29 ml/min (Acute) Diabetic peripheral neuropathy (Chronic) B12 deficiency (Acute) Alcohol use disorder (Chronic) Lamellar macular hole of both eyes (Acute 10/25/21) Type 1 diabetes, controlled, with neuropathy (Chronic ~05/2017) Adult onset, diagnosed 05/2017 [facility] Endo Dr. Douglas--recommend GLP1 Personal goal A1C <7% Family history of prostate cancer (Chronic) F Medical History Diverticula of colon History of elevated PSA Per [place] Records--01/14/2019 6.41, 04/28/2018 6.32; +Fam hx prostate cancer in F Solitary left kidney [facility] (initial 07/2020); s/p nephrectomy on R 2004 renal cell cancer; partial nephrectomy on L 2007 Hypertension RX Lisinopril (stopped due to creatinine) History of Yodit's gangrene Microcytic anemia Sinus tachycardia Fever Thrombosis superficial vein, arm, acute Gallstones Kidney lesion, chehalis, left Colitis due to Clostridium difficile Skin ulcer of scrotum (~2022) De Quervain's tenosynovitis, left 40 mg Depo-Medrol injection: 04/04/2022 Metabolic acidosis Alcohol intoxication (~12/02/21) Osteoarthritis of elbows, bilateral Lesion of bone of left forearm proximal radius lesion Tubular adenoma of colon 08/2018 colonoscopy [facility] GI; recall 5y History of alcohol use disorder since 1989 with intermittent sobriety History of opioid abuse s/p surgeries; visiting brother 08/2021 ([facility] admission) History of renal cell cancer s/p nephrectomy Chronic gingivitis, plaque induced Dentist Bilateral carpal tunnel syndrome Polyneuropathy associated with underlying disease DM Surgical History H/O skin graft [facility] 07/12/22 Scrotal Abscess 07/15/22 Skin Graft with Bolster removal H/O arthroscopy of knee Remotely--both knees at some point; he cannot recall what, but thinks meniscal History of nephrectomy, right (~03/2004) Renal cell cancer H/O partial nephrectomy (~04/2007) left Family History Mother , 54yo breast cancer Alcohol abuse Breast cancer Depression Substance abuse Father , ~70yo prostate cancer Alcohol abuse Prostate cancer Substance abuse Sister , throat caner (nicotine use) Alcohol abuse Cancer Cervical Substance abuse Social History Smoking/Tobacco Use Status: Never Smoking risk assessment performed?: Yes Alcohol Intake: current Alcohol Intake frequency: a few times a month Alcohol type: beer and hard liquor Previous attempts at quittin Counseling given: Yes ([employer]) Drug use: Current Sobriety Substance use type: does not use and opiates Details: no IV drug use Adopted: No Caregiver/Support person: No Foster care: No Household members: other Details: Sober Living Facility Housing: other Number of Children: 4 number of grandchildren: 4 Communication Needs: None Education Level: college Do you need help understanding health information?: Rarely 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) Pets and animals: Yes Pets and animals: cat(s) Sexually active: No Do you think of yourself as: straight/heterosexual Current gender identity: male What is your relationship status?: How often do you talk on the phone with friends or family?: three or more times per week How often do you get together with friends or relatives?: three or more times per week How often do you attend yazidi or buddhism services?: 4 or more times per year Do you belong to any clubs or organized social groups?: no Panel score (0-1 are the most socially isolated patients): 2 What type of physical activity do you participate in: walking, bicycling and other Details: EXERCISE ON STATIONARY BIKE Duration: < 15 minutes/day Frequency: 3-4 times per week Erin/Episcopal: Yarsani Agree to transfusion: No Seatbelt use: always Helmet use: Yes Drive intox or ride w/intox pile driver operator helper: No Water heater temp set <120 deg: Yes Working smoke detector in home: Yes Fire extinguisher in home: Yes Do you feel safe at home: Yes Do you feel safe in your relationship?: Yes PAWSS Pt Consumed Any Amount of Alcohol Within the Last 30 days OR had positive DAREK Upon Admission: Yes Have you Been Recently Intoxicated or Drunk Within the Last 30 days?: Yes Have you Ever Experienced Previous Episodes of Alcohol Withdrawal?: Yes Have you ever Experienced Withdrawal Seizures?: Yes Have you ever Experienced Delirium Tremens(DT)s?: Yes Have you ever undergone Alcohol Rehabilitation Treatment (i.e, inpt ot outpatient treatment programs)?: Yes Have you ever Experienced Blackouts?: Yes Have you ever Combined Alcohol with other Downers within the last 90 days?: No Have you ever Combined Alcohol with any other Substance of Abuse during the last 90 days?: No Evidence of Increased Autonomic Activity (i.e. HR>120, tremor, sweating, agitation, nausea)?: Yes Result: 7
--- NOTE | 2024-07-29 15:30 | RT.EKG_ITS ---
APPROVED REPORT Exam: Resting ECG Reason for Exam: Tachy Patient Location: E HR:111 bpm ECG Measurements Heart Rate 111 AXIS RI 171 P 67 QRSd 95 QRS 88 QT 353 T 20 QTc 479 Conclusion Sinus tachycardia, rate 111 No interval abnormalities No STEMI No changes from priors
[2024-07-29 15:55] LABS: Abs Immature Grans 0.17 10^3/uL (0.0-0.06); Absolute Eosinophil Count 0.16 10^3/uL (0.0-0.7); Absolute Lymphocyte Count 1.44 10^3/uL (1.2-3.4); Absolute Monocyte Count 0.58 10^3/uL (0.1-0.8); Absolute Neutrophil Count 8.89 10^3/uL (1.2-6.7); Basophils % 0.4 %; Eosinophils % 1.4 %; HCT 33.9 % (40.0-50.0); HGB 10.6 g/dL (13.5-17.5); Immature Grans % 1.5 %; Lymphocytes % 12.8 %; MCHC 31.3 % (32.0-36.0); MCV 87 fL (80-95); MPV 10.1 fL (8.0-11.0); Monocytes % 5.1 %; Neutrophils % 78.8 %; Platelet Count 491 10^3/uL (130-400); RBC 3.92 10^6/uL (4.36-5.78); RDW 18.2 % (11.8-14.1); RDW-SD 57.4 fL; WBC 11.28 10^3/uL (4.4-10.8)
[2024-07-29 15:56] LABS: Absolute Basophil Count 0.05 10^3/uL (0.0-0.2)
[2024-07-29 15:57] LABS: Bilirubin Negative (Negative); Blood Trace-intact (Negative); Clarity Clear (Clear); Glucose Negative (Negative); Ketones Negative (Negative); Leukocyte Esterase Negative (Negative); Nitrite Negative (Negative); Urobilinogen 0.2 mg/dL (Up to 0.2); pH 5.5 (5-8)
[2024-07-29 16:07] LABS: Bacteria Many HPF (Negative); C & S Indicated? No; Casts Negative LPF (Negative); Crystals Few Amorphous HPF (Negative); Epithelial Cells Rare HPF (Negative); Mucus Negative (Negative); WBC 0-2 HPF (0-5)
[2024-07-29 16:09] LABS: *AMPHETAMINES SCREEN URINE Negative (Negative); *BARBITURATES SCREEN URINE Positive (Negative); *BENZODIAZEPINES SCREEN URINE Negative (Negative); Cannabinoids THC Negative (Negative); Cocaine Screen,Urine Negative (Negative); METHADONE URINE SCREEN Negative (Negative); OPIATES URINE SCREEN Negative (Negative)
[2024-07-29 16:11] LABS: Tricyclic Antidepressants Negative (Negative)
[2024-07-29 16:23] LABS: ALT 16 U/L (16-63); AST 15 U/L (15-37); Albumin 3.1 g/dL (3.4-5.0); Alkaline Phosphatase 107 U/L (46-116); BUN 54 mg/dL (7-18); Bilirubin, Total 0.2 mg/dL (0.2-1.0); CREATININE 2.2 mg/dL (0.70-1.30); Calcium 9.2 mg/dL (8.5-10.1); Chloride 99 mmol/L (98-107); ETHANOL BLOOD 90.3 mg/dL (<10); Estimated GFR 32.63 (mL/min/1.73m2); Glucose 154 mg/dL (74-106); Magnesium 1.9 mg/dL (1.8-2.4); Potassium 4.9 mmol/L (3.5-5.1); Sodium 134 mmol/L (136-145); Total Protein 9.1 g/dL (6.4-8.2); Troponin I 9 ng/L (<or=76)
[2024-07-29] MEDS: MAGNESIUM SULFATE 8.12 MEQ, MULTIVITAMIN 10 ML, THIAMINE 100 MG, FOLIC ACID 1 MG in Nor... 168.867 MG IV (17:21)
[2024-07-29 17:57] LABS: Troponin I 9 ng/L (<or=76)
--- NOTE | 2024-07-29 18:58 | HPE_ITS ---
Date of service: 07/29/24 Time of Service: 18:58 Assessment and Plan Assessment and plan (1) Alcohol abuse with withdrawal: Start date: 07/29/24 Status: Acute Assessment and plan: This is a 63-year-old woman who was just hospitalized for alcohol withdrawal and when discharged began drinking immediately. He had not been mL since he was discharged. He has a history of severe withdrawal and is presently having recurrence of mild hallucinations. He is doing well on repeat phenobarbital protocol without oversedation. He is not requiring extra medication at this time. He has mild worsening of his CKD and is mildly acidotic with a history of diabetes though this appears to be fairly well-controlled. Electrolyte abnormalities are not recurring as of yet with his short outpatient exposure to alcohol. He will be admitted to the ICU for detox once again and long-term should be referred to inpatient alcohol rehabilitation facility. He is homeless. He is a full code. (2) Anemia in chronic kidney disease (CKD): Status: Chronic Assessment and plan: Trend labs while hospitalized. Patient has received some hydration. (3) Type 2 diabetes mellitus with mild nonproliferative diabetic retinopathy without macular edema, bilateral: Status: Chronic Assessment and plan: While hospitalized will be receiving glucometer measurements before meals and at bedtime with moderate sliding scale coverage. (4) Hyperlipidemia: Status: Chronic Assessment and plan: Continue outpatient medical therapy. (5) Hypertension: Assessment and plan: Continue outpatient medical therapy adjusting as needed. (6) Hyperuricemia: Status: Chronic Assessment and plan: On allopurinol possibly associated with chronic kidney disease. Continue allopurinol. (7) GERD (gastroesophageal reflux disease): Status: Chronic Assessment and plan: Continue PPI. History of Present Illness History of Present Illness Chief Complaint: Binge drinking alcohol now with alcohol withdrawal. Narrative: This is a 63-year-old male patient who was recently hospitalized for alcohol withdrawal and mild delirium now returning just after discharge having drunk and increased amounts of vodka and wanting to be admitted to [facility] but being 11 hours off alcohol, going through alcohol withdrawals again. He was seen in the ED and initiated on phenobarbital protocol. This will be continued with the patient to have consultation for placement for alcohol rehabilitation. He is failing outpatient therapy for this problem. He does have a history of severe delirium tremens and severe withdrawal and will be placed in ICU as he was prior. See ED note for details of short outpatient history. Patient did start going in immediately after he was discharged from this facility and he did fall on the floor but sustained minimal injuries. He has not eaten a meal since his last discharge. The patient is homeless. His current medical problems appear to be overall stable. Patient is a diabetic and was mildly acidotic but was not in DKA. His electrolytes were not abnormal. His chronic anemia appears stable with a reactive thrombocytosis and urine drug screen was positive for barbiturates with patient's phenobarbital recently with phenobarbital level 19.5 having just been through a protocol with previous hospitalization. Ethanol level was 9.3. Urinalysis was benign. His creatinine was stable and elevated from baseline with IV hydration given. The patient is a full code. Review of Systems Narrative: 13 point review of systems positive for patient having auditory and visual hallucinations which are mild, otherwise unrevealing or stable. PFSH All Active Problems (Updated 07/29/24 @ 19:44 by Sean Patterson) GERD (gastroesophageal reflux disease) (Chronic) Hyperuricemia (Chronic) Osteoarthritis of both knees (Acute) Anemia in chronic kidney disease (CKD) (Chronic) Chronic kidney disease (Chronic) Hypomagnesemia (Acute) Alcohol abuse with withdrawal (Acute) Scrotal abscess (Acute) Acute renal failure due to tubular necrosis (Acute) 05/21/2024 Acute hyperkalemia (Acute) Melena (Acute) Single kidney (Acute) Steatosis (Acute) Age-related nuclear cataract, bilateral (Acute ~10/03/23) [place] Type 2 diabetes mellitus with mild nonproliferative diabetic retinopathy without macular edema, bilateral (Chronic ~10/03/23) [place] Misuse of prescription only drugs (Acute ~03/2023) RX Gabapentin Hyperlipidemia (Chronic) Secondary hyperparathyroidism (Acute ~05/2021) 05/29/21 [facility] Nephrology CKD (chronic kidney disease) stage 4, GFR 15-29 ml/min (Acute) Diabetic peripheral neuropathy (Chronic) B12 deficiency (Acute) Alcohol use disorder (Chronic) Lamellar macular hole of both eyes (Acute 10/25/21) Type 1 diabetes, controlled, with neuropathy (Chronic ~05/2017) Adult onset, diagnosed 05/[address] [facility] [address]. Douglas--recommend GLP1 Personal goal A1C <7% Family history of prostate cancer (Chronic) F Medical History Diverticula of colon History of elevated PSA Per [facility]--01/14/2019 6.41, 04/28/2018 6.32; +Fam hx prostate cancer in F Solitary left kidney [facility] Nephro (initial 07/2020); s/p nephrectomy on R 2004 renal cell cancer; partial nephrectomy on L 2007 Hypertension RX Lisinopril (stopped due to creatinine) History of Yodit's gangrene Microcytic anemia Sinus tachycardia Fever Thrombosis superficial vein, arm, acute Gallstones Kidney lesion, [place], left Colitis due to Clostridium difficile Skin ulcer of scrotum (~2022) De Quervain's tenosynovitis, left 40 mg Depo-Medrol injection: 04/04/2022 Metabolic acidosis Alcohol intoxication (~12/02/21) Osteoarthritis of elbows, bilateral Lesion of bone of left forearm proximal radius lesion Tubular adenoma of colon 08/2018 colonoscopy [facility]; recall 5y History of alcohol use disorder since 1989 with intermittent sobriety History of opioid abuse s/p surgeries; visiting brother 08/2021 ([facility] admission) History of renal cell cancer s/p nephrectomy Chronic gingivitis, plaque induced 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 Bilateral carpal tunnel syndrome Polyneuropathy associated with underlying disease DM Surgical History H/O skin graft [facility] 07/12/22 Scrotal Abscess 07/15/22 Skin Graft with Bolster removal H/O arthroscopy of knee Remotely--both knees at some point; he cannot recall what, but thinks meniscal History of nephrectomy, right (~03/2004) Renal cell cancer H/O partial nephrectomy (~04/2007) left Family History Mother , 54yo breast cancer Alcohol abuse Breast cancer Depression Substance abuse Father , ~70yo prostate cancer Alcohol abuse Prostate cancer Substance abuse Sister , throat caner (nicotine use) Alcohol abuse Cancer Cervical Substance abuse Social History Smoking/Tobacco Use Status: Never Smoking risk assessment performed?: Yes Alcohol Intake: current Alcohol Intake frequency: a few times a month Alcohol type: beer and hard liquor Previous attempts at quittin Counseling given: Yes ([facility]) Drug use: Current Sobriety Substance use type: does not use and opiates Details: no IV drug use Adopted: No Caregiver/Support person: No Foster care: No Household members: other Details: Sober Living Facility Housing: other Number of Children: 4 number of grandchildren: 4 Communication Needs: None Education Level: college Do you need help understanding health information?: Rarely 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) Pets and animals: Yes Pets and animals: cat(s) Sexually active: No Do you think of yourself as: straight/heterosexual Current gender identity: male What is your relationship status?: How often do you talk on the phone with friends or family?: three or more times per week How often do you get together with friends or relatives?: three or more times per week How often do you attend restorationist or nondenominational services?: 4 or more times per year Do you belong to any clubs or organized social groups?: no Panel score (0-1 are the most socially isolated patients): 2 What type of physical activity do you participate in: walking, bicycling and other Details: EXERCISE ON STATIONARY BIKE Duration: < 15 minutes/day Frequency: 3-4 times per week Erin/Methodist: Pentecostal Agree to transfusion: No Seatbelt use: always Helmet use: Yes Drive intox or ride w/intox commercial driver: No Water heater temp set <120 deg: Yes Working smoke detector in home: Yes Fire extinguisher in home: Yes Do you feel safe at home: Yes Do you feel safe in your relationship?: Yes Meds Allergies and Home Medications Allergies Allergy/AdvReac Type Severity Reaction Status Date / Time lactose intolerant AdvReac Mild Diarrhea Uncoded 07/29/24 12:53 Home Medications ?Medication ?Instructions ?Recorded ?Confirmed ?Type lancets 08/03/20 07/29/24 History blood-glucose sensor (Dexcom G7 #1 ea 08/26/22 07/29/24 Rx Sensor device) blood-glucose,bookbinder chief,cont #1 ea 08/26/22 07/29/24 Rx (Dexcom G7 [employer] Veget[employer] Worker) blood sugar diagnostic (Embrace 11/29/22 07/29/24 History DELLA test strips) blood sugar diagnostic (OneTouch #400 strips 12/02/22 07/29/24 Rx Verio test strips) pen needle, diabetic 32 gauge x #360 ea 02/11/23 07/29/24 Rx (Unifine Pentips Plus) atorvastatin 20 mg tablet See Rx Instructions .Route 03/01/24 07/29/24 Rx .COMPLEX #90 tabs acetaminophen 325 mg capsule 650 mg PO Q6H PRN 07/09/24 07/29/24 History allopurinol 100 mg tablet 100 mg PO BID 07/09/24 07/29/24 History duloxetine 30 mg capsule,delayed See Rx Instructions PO DAILY 07/09/24 07/29/24 History release insulin glargine 100 unit/mL (3 16 unit subcut QHS 07/09/24 07/29/24 History mL) subcutaneous pen insulin lispro 100 unit/mL 1 sliding scale dose subcut QAC 07/09/24 07/29/24 History subcutaneous pen (Humalog KwikPen (U-100) Insulin) metoprolol succinate 100 mg 100 mg PO DAILY #90 tabs 07/14/24 07/29/24 Rx tablet,extended release 24 hr diclofenac sodium 1 % topical gel 2 g topical QID #100 grams 07/28/24 07/29/24 Rx (Arthritis Pain (diclofenac)) pantoprazole 40 mg tablet,delayed 40 mg PO DAILY #20 tabs 07/28/24 07/29/24 Rx release Exam Narrative Exam Narrative: General: Patient appears older than stated age, flattened affect and in moderate distress from his hallucinations. He is slightly sedated. Alert and oriented at least to person and place. HEENT: Normocephalic, eyes with pupils equal and reactive light symmetrically, extraocular movement intact and sclera anicteric. Oropharynx with dry mucosa and poor dentition. Neck: Supple without JVD. Back: Stooped posture without CVA tenderness. Lungs: Fair aeration and clear causation percussion. No focalizing rales or rhonchi. No expiratory wheeze. Heart: Tachycardic rate with regular rhythm with systolic murmur left sternal border without gallop or rub. Abdomen: Slightly protuberant but soft with no palpable hepatosplenomegaly. No focalizing guarding or rebound. No tenderness. Bowel sounds positive all quadrants. Test/rectal: Exam deferred. Extremities: Without clubbing, cyanosis or grossly pitting edema. Skin: Normal color, warm and dry. Actinic changes over sun exposed areas. Neuro: Cranial nerves II through XII appear to be grossly intact. No focalizing motor deficits and no gross tremor. No asterixis. Psych: Flattened affect with depressed mood. Patient is stated that he is having auditory and visual hallucinations but none active at the time of my exam. Remote memory intact and recent memory less intact. Results Labs 07/29/24 15:45 07/29/24 15:45 Labs: Laboratory Results - last 24 hr 07/29/24 07/29/24 07/29/24 15:24 15:45 17:33 WBC 11.28 H RBC 3.92 L Hgb 10.6 L D Hct 33.9 L MCV 87 MCH 27.0 MCHC 31.3 L RDW 18.2 H Plt Count 491 H D MPV 10.1 Immature Gran % 1.5 Neutrophils % 78.8 Lymphocytes % 12.8 Monocytes % 5.1 Eosinophils % 1.4 Basophils % 0.4 Nucleated RBC % 0.0 Absolute Neutrophils 8.89 H Absolute Lymphocytes 1.44 Absolute Monocytes 0.58 Absolute Eosinophils 0.16 Absolute Basophils 0.05 Sodium 134 L Potassium 4.9 Chloride 99 Carbon Dioxide 19.0 L Anion Gap 16.0 H BUN 54 H Creatinine 2.2 H Est GFR (CKD-EPI 2020) 32.63 Glucose 154 H Calcium 9.2 Magnesium 1.9 Total Bilirubin 0.2 AST 15 ALT 16 Alkaline Phosphatase 107 Troponin I 9 9 Total Protein 9.1 H Albumin 3.1 L Urine Color Yellow Urine Clarity Clear Urine pH 5.5 Ur Specific [place] 1.020 Urine Protein 100 H Urine Ketones Negative Urine Blood Trace-intact H Urine Nitrite Negative Urine Bilirubin Negative Urine Urobilinogen 0.2 Ur Leukocyte Esterase Negative Urine RBC 3-5 H Urine WBC 0-2 Ur Epithelial Cells Rare Urine Crystals Few Amorphous Urine Bacteria Many Urine Casts Negative Urine Mucus Negative Ur Culture Indicated? No Urine Glucose Negative Urine Opiates Screen Negative Urine Methadone Screen Negative Ur Barbiturates Screen Positive A Ur Tricyclics Screen Negative Ur Amphetamines Screen Negative U Benzodiazepines Scrn Negative Urine Cocaine Screen Negative Ur THC Screen Negative Ethyl Alcohol 90.3 H 07/29/24 18:10 WBC RBC Hgb Hct MCV MCH MCHC RDW Plt Count MPV Immature Gran % Neutrophils % Lymphocytes % Monocytes % Eosinophils % Basophils % Nucleated RBC % Absolute Neutrophils Absolute Lymphocytes Absolute Monocytes Absolute Eosinophils Absolute Basophils Sodium Potassium Chloride Carbon Dioxide Anion Gap BUN Creatinine Est GFR (CKD-EPI 2020) Glucose Calcium Magnesium Total Bilirubin AST ALT Alkaline Phosphatase Troponin I Cancelled Total Protein Albumin Urine Color Urine Clarity Urine pH Ur Specific [place] Urine Protein Urine Ketones Urine Blood Urine Nitrite Urine Bilirubin Urine Urobilinogen Ur Leukocyte Esterase Urine RBC Urine WBC Ur Epithelial Cells Urine Crystals Urine Bacteria Urine Casts Urine Mucus Ur Culture Indicated? Urine Glucose Urine Opiates Screen Urine Methadone Screen Ur Barbiturates Screen Ur Tricyclics Screen Ur Amphetamines Screen U Benzodiazepines Scrn Urine Cocaine Screen Ur THC Screen Ethyl Alcohol Last Vital Signs Temp 36.4 C 07/29/24 12:45 Pulse 118 H 07/29/24 18:31 Resp 16 07/29/24 18:31 BP 118/64 07/29/24 18:30 Pulse Ox 95 07/29/24 18:31 PAWSS Pt Consumed Any Amount of Alcohol Within the Last 30 days OR had positive DAREK Upon Admission: Yes Have you Been Recently Intoxicated or Drunk Within the Last 30 days?: Yes Have you Ever Experienced Previous Episodes of Alcohol Withdrawal?: Yes Have you ever Experienced Withdrawal Seizures?: Yes Have you ever Experienced Delirium Tremens(DT)s?: Yes Have you ever undergone Alcohol Rehabilitation Treatment (i.e, inpt ot outpatient treatment programs)?: Yes Have you ever Experienced Blackouts?: Yes Have you ever Combined Alcohol with other Downers within the last 90 days?: No Have you ever Combined Alcohol with any other Substance of Abuse during the last 90 days?: No Evidence of Increased Autonomic Activity (i.e. HR>120, tremor, sweating, agitation, nausea)?: Yes Result: 7 Time Spent Time spent with Patient: >75 minutes Time was spent: preparing to see the patient(eg.review tests), obtaining and/or reviewing separately otained hiistory, ordering medications,tests, procedures, indepentently interpreting results, counseling the patient and care coordination
[2024-07-29 22:46] LABS: PHENOBARBITAL 19.5 ug/mL (15.0-40.0)
[2024-07-29] MEDS: Normal Saline 1,000 ML 125 ML IV (23:45)
[2024-07-29] MEDS: Normal Saline Flush 10 ML SYR IVP (23:52)
[2024-07-29] MEDS: Metoprolol 25 MG TAB PO (23:53)
[2024-07-29] MEDS: Enoxaparin 30 MG/0.3 ML SYR SC (23:53)
[2024-07-29] MEDS: Allopurinol 100 MG TAB PO (23:53)
[2024-07-29] MEDS: DULoxetine 30 MG CAP 60 MG PO (23:53)
[2024-07-29] MEDS: Atorvastatin 20 MG TAB PO (23:54)
[2024-07-30] VITALS (30 sets, daily range): BP systolic 116–154; BP diastolic 73–83; PULSE 87–134; RESP 14–22; TEMP 36.8–37.6; O2SAT 76–98
[2024-07-30] MEDS: Metoprolol 25 MG TAB PO ×2 (05:56→12:16)
[2024-07-30 06:43] LABS: HCT 27.4 % (40.0-50.0); HGB 8.5 g/dL (13.5-17.5); MCV 87 fL (80-95); MPV 9.9 fL (8.0-11.0); Platelet Count 436 10^3/uL (130-400); RBC 3.15 10^6/uL (4.36-5.78); RDW 18.4 % (11.8-14.1); RDW-SD 58.1 fL; WBC 10.57 10^3/uL (4.4-10.8)
[2024-07-30 07:01] LABS: ALT 12 U/L (16-63); AST 14 U/L (15-37); Albumin 2.4 g/dL (3.4-5.0); Alkaline Phosphatase 87 U/L (46-116); Anion Gap 10.6 mmol/L (3-11); BUN 57 mg/dL (7-18); Bilirubin, Total 0.4 mg/dL (0.2-1.0); CO2 20.4 mmol/L (21.0-32.0); Calcium 8.9 mg/dL (8.5-10.1); Chloride 104 mmol/L (98-107); Estimated GFR 36.58 (mL/min/1.73m2); Glucose 152 mg/dL (74-106); Magnesium 2.1 mg/dL (1.8-2.4); PHOSPHORUS 4.7 mg/dL (2.6-4.7); Potassium 5.1 mmol/L (3.5-5.1); Sodium 135 mmol/L (136-145); Total Protein 7.1 g/dL (6.4-8.2)
[2024-07-30] MEDS: Allopurinol 100 MG TAB PO (07:58)
[2024-07-30] MEDS: Pantoprazole 40 MG TABCR PO (07:58)
[2024-07-30] MEDS: Normal Saline Flush 10 ML SYR IVP (07:59)
[2024-07-30] MEDS: DULoxetine 30 MG CAP PO (07:59)
[2024-07-30] MEDS: Diclofenac 1% Gel 100 GM TUBE TP (08:27)
[2024-07-30] MEDS: Insulin Aspart 300 UNITS/3 ML PEN SC ×2 (08:30→11:42)
--- NOTE | 2024-07-30 11:53 | DSE_ITS ---
Date of service: 07/30/24 Time of Service: 11:11 DS: Diagnosis Discharge Diagnosis (1) Alcohol abuse with withdrawal: Status: Acute (2) Anemia in chronic kidney disease (CKD): Status: Chronic (3) Type 2 diabetes mellitus with mild nonproliferative diabetic retinopathy without macular edema, bilateral: Status: Chronic (4) Hyperlipidemia: Status: Chronic (5) Hypertension: (6) Hyperuricemia: Status: Chronic (7) GERD (gastroesophageal reflux disease): Status: Chronic Discharge Plan Disposition Patient Disposition: Psychiatric Hospital/Unit Specific Psychiatric Facility: Other Condition: Stable Discharge Details Reason For Visit: Acute alcohol withdrawal Admit Date/Time: 07/29/24 19:58 Admit Provider: Sean Patterson Attending Provider: Sean Patterson Primary Care Provider: Mel Llamas Hospital Course Hospital Course: 63-year-old male with past medical history of IDDM, CKD, hyperlipidemia, significant alcohol use disorder with previous hospitalizations for alcohol withdrawal who was just admitted for alcohol withdrawal who was readmitted after immediately binging on Vodka after leaving the hospital. He had some mild hallicunations and alcohol level was 90.3. He was admitted and loaded per phenobarbital protocol. He again had an acidosis associated with alcohol use but this normalized with closing of his anion gap overnight after hydration. His electrolytes were close to normal and his creatinine and anemia was near baseline. He only got the loading doses and by the next morning his mental status was normal and he was eating and feeling ready to go. He has a bed at [facility] and [facility] was able to provide him a ride to pickler helper his belonging and go strait to [facility] rehabilitation. Additional medications for alcohol use disorder were deferred to [facility]. Home Meds and New Rx's Prescriptions: Continued metoprolol succinate 100 mg tablet extended release 24 hr 100 mg PO DAILY Qty: 90 3RF (DME) lancets Misc See Rx Instructions .MEDSUPPLY Rx Instructions: As directed to check blood glucose four times daily. On insulin. Dispense covered brand. (DME) Embrace DELLA test strips Strip See Rx Instructions .Route Patient Comments: Will need the embrace strips that match his meter-- Rx Instructions: As directed to fit his meter-- (DME) Dexcom G7 Commercial Energy Auditor Misc See Rx Instructions .Route Qty: 1 0RF Rx Instructions: As directed (DME) Dexcom G7 Sensor Device See Rx Instructions .Route Qty: 1 0RF Rx Instructions: As directed (DME) OneTouch Verio test strips Strip See Rx Instructions .ROUTE .COMPLEX Qty: 400 3RF Dose Instruction: TEST BLOOD SUGAR FOUR TIMES A DAY Rx Instructions: TEST BLOOD SUGAR FOUR TIMES A DAY (DME) pen needle, diabetic [Unifine Pentips Plus] 32 gauge x 5/32 needle See Rx Instructions .ROUTE .COMPLEX Qty: 360 3RF Dose Instruction: USE FOUR TIMES DAILY FOR GOAL A1C<7 Rx Instructions: USE FOUR TIMES DAILY FOR GOAL A1C<7 atorvastatin 20 mg tablet See Rx Instructions .ROUTE .COMPLEX Qty: 90 3RF Dose Instruction: TAKE ONE TABLET BY MOUTH AT BEDTIME FOR CHOLESTEROL OR DIABETES Rx Instructions: TAKE ONE TABLET BY MOUTH AT BEDTIME FOR CHOLESTEROL OR DIABETES acetaminophen 325 mg capsule 650 mg PO Q6H PRN allopurinol 100 mg tablet 100 mg PO BID duloxetine 30 mg capsule,delayed release(DR/EC) See Rx Instructions PO DAILY Rx Instructions: 30mg in AM and 60mg at HS orally daily; insulin lispro [Humalog KwikPen Insulin] 100 unit/mL insulin pen 1 sliding scale dose subcut QAC Rx Instructions: Sliding Scale: 0-150 0 units, 151-200 2 units, 201-250 4 units, 251-300 6 units,301-350 8 units, 351-400 10 units and call PCP if glucose is greater than 400 insulin glargine 100 unit/mL (3 mL) insulin pen 16 unit subcut QHS Patient Comments: 16 units at HS per pt diclofenac sodium [Arthritis Pain (diclofenac)] 1 % gel 2 g topical QID Qty: 100 3RF Rx Instructions: apply to ana knees pantoprazole 40 mg tablet,delayed release (DR/EC) 40 mg PO DAILY Qty: 20 0RF Discharge Instructions Instructions: Alcohol Use Disorder (DC) Additional Instructions: go [facility] to [facility] for intake today Activity:: Activity as Tolerated Equipment/Supplies:: No Equipment Needed Diet:: Carb Counting Discharge Orders Discharge Orders: Discharge Order (Routine); Ordered 07/30/24 Ordered By: Toby Nuñez Discharge Data Discharge Date/Time-TO BE ENTERED AT DEPARTURE: 07/30/24 13:23 Discharge Comment: via [facility] to [facility] DS: Summary Time Spent with Patient providing and/or coordinating discharge services: Greater than 30 minutes Status at Discharge Functional status at discharge: independent ambulation Overall status at discharge: patient is back to baseline Mental Status: mental status grossly normal Speech and Movement: speech and movement normal Mood: congruent mood Affect: normal affect Quality:SDOH Health Related Social Needs: No Data to Display Exam Narrative Exam Narrative: MIldly anxious appearing gentleman laying in bed, ANO x 4, heart borderline tachycardic with rates in around 100,no murmur. lungs clear to auscultation bilaterally, abdomen soft, nontender, nondistended. No tremor. No cynosis, clubbing, or edema Psych Mental Status: mental status grossly normal Speech and Movement: speech and movement normal Mood: congruent mood Affect: normal affect DS: Data Vitals/I&O Vitals and I&O: Vital Signs Temperature 36.8 C 07/30/24 08:15 Temperature Source Temporal Artery Scan 07/29/24 21:30 Pulse 102 H 07/30/24 11:00 Pulse 102 H 07/30/24 11:00 Respiratory Rate 15 07/30/24 11:00 Respiratory Effort Normal, Non-Labored 07/29/24 21:30 Respiratory Depth Normal 07/29/24 21:30 Respiratory Pattern Normal 07/29/24 21:30 Blood Pressure 133/83 07/30/24 08:15 Blood Pressure Mean 98 07/30/24 08:15 Blood Pressure Position Sitting 07/29/24 12:45 Pulse Oximetry 95 07/30/24 11:00 Oxygen Delivery Method Room Air 07/29/24 21:30 Oxygen Flow Rate 0 07/29/24 21:30 Intake & Output 07/29/24 07/29/24 07/30/24 11:59 23:59 11:59 Intake Total 626.3468 / 626.3468 1792.2378 / 1792.2378 Output Total 375 / 375 100 / 100 Balance 251.3468 / 251.3468 1692.2378 / 1692.2378 Weight 98.43 kg 99.1 kg Intake: IV 626.3468 / 626.3468 1552.2378 / 1552.2378 Oral 240 / 240 Output: Urine 375 / 375 100 / 100 Other: Urine Color Pale Pale Urine Appearance Clear Clear Urine Odor Normal Normal Comment unknown amount pt was incontinent of stool and urine in bed Stool Size Copious Stool Characteristics Soft Brown Data Completed and Pending Labs on day of discharge: Labs from last 24 hours 07/30/24 07/29/24 07/29/24 05:54 22:10 18:10 WBC 10.57 RBC 3.15 L Hgb 8.5 L D Hct 27.4 L MCV 87 MCH 27.0 MCHC 31.0 L RDW 18.4 H Plt Count 436 H MPV 9.9 Immature Gran % Neutrophils % Lymphocytes % Monocytes % Eosinophils % Basophils % Nucleated RBC % Absolute Neutrophils Absolute Lymphocytes Absolute Monocytes Absolute Eosinophils Absolute Basophils Sodium 135 L Potassium 5.1 Chloride 104 Carbon Dioxide 20.4 L Anion Gap 10.6 BUN 57 H Creatinine 2.0 H Est GFR (CKD-EPI 2020) 36.58 Glucose 152 H Calcium 8.9 Phosphorus 4.7 Magnesium 2.1 Total Bilirubin 0.4 AST 14 L ALT 12 L Alkaline Phosphatase 87 Troponin I Cancelled Total Protein 7.1 Albumin 2.4 L Urine Color Urine Clarity Urine pH Ur Specific [place] Urine Protein Urine Ketones Urine Blood Urine Nitrite Urine Bilirubin Urine Urobilinogen Ur Leukocyte Esterase Urine RBC Urine WBC Ur Epithelial Cells Urine Crystals Urine Bacteria Urine Casts Urine Mucus Ur Culture Indicated? Urine Glucose Urine Opiates Screen Urine Methadone Screen Ur Barbiturates Screen Ur Tricyclics Screen Ur Amphetamines Screen Phenobarbital 19.5 U Benzodiazepines Scrn Urine Cocaine Screen Ur THC Screen Ethyl Alcohol 07/29/24 07/29/24 07/29/24 17:33 15:45 15:24 WBC 11.28 H RBC 3.92 L Hgb 10.6 L D Hct 33.9 L MCV 87 MCH 27.0 MCHC 31.3 L RDW 18.2 H Plt Count 491 H D MPV 10.1 Immature Gran % 1.5 Neutrophils % 78.8 Lymphocytes % 12.8 Monocytes % 5.1 Eosinophils % 1.4 Basophils % 0.4 Nucleated RBC % 0.0 Absolute Neutrophils 8.89 H Absolute Lymphocytes 1.44 Absolute Monocytes 0.58 Absolute Eosinophils 0.16 Absolute Basophils 0.05 Sodium 134 L Potassium 4.9 Chloride 99 Carbon Dioxide 19.0 L Anion Gap 16.0 H BUN 54 H Creatinine 2.2 H Est GFR (CKD-EPI 2020) 32.63 Glucose 154 H Calcium 9.2 Phosphorus Magnesium 1.9 Total Bilirubin 0.2 AST 15 ALT 16 Alkaline Phosphatase 107 Troponin I 9 9 Total Protein 9.1 H Albumin 3.1 L Urine Color Yellow Urine Clarity Clear Urine pH 5.5 Ur Specific [place] 1.020 Urine Protein 100 H Urine Ketones Negative Urine Blood Trace-intact H Urine Nitrite Negative Urine Bilirubin Negative Urine Urobilinogen 0.2 Ur Leukocyte Esterase Negative Urine RBC 3-5 H Urine WBC 0-2 Ur Epithelial Cells Rare Urine Crystals Few Amorphous Urine Bacteria Many Urine Casts Negative Urine Mucus Negative Ur Culture Indicated? No Urine Glucose Negative Urine Opiates Screen Negative Urine Methadone Screen Negative Ur Barbiturates Screen Positive A Ur Tricyclics Screen Negative Ur Amphetamines Screen Negative Phenobarbital U Benzodiazepines Scrn Negative Urine Cocaine Screen Negative Ur THC Screen Negative Ethyl Alcohol 90.3 H PFSH All Active Problems (Updated 07/29/24 @ 19:44 by Sean Patterson) GERD (gastroesophageal reflux disease) (Chronic) Hyperuricemia (Chronic) Osteoarthritis of both knees (Acute) Anemia in chronic kidney disease (CKD) (Chronic) Chronic kidney disease (Chronic) Hypomagnesemia (Acute) Alcohol abuse with withdrawal (Acute) Scrotal abscess (Acute) Acute renal failure due to tubular necrosis (Acute) 05/21/2024 Acute hyperkalemia (Acute) Melena (Acute) Single kidney (Acute) Steatosis (Acute) Age-related nuclear cataract, bilateral (Acute ~10/03/23) [place] Type 2 diabetes mellitus with mild nonproliferative diabetic retinopathy without macular edema, bilateral (Chronic ~10/03/23) [place] Misuse of prescription only drugs (Acute ~03/2023) RX Gabapentin Diabetic peripheral neuropathy (Chronic) B12 deficiency (Acute) Alcohol use disorder (Chronic) CKD (chronic kidney disease) stage 4, GFR 15-29 ml/min (Acute) Lamellar macular hole of both eyes (Acute 10/25/21) Type 1 diabetes, controlled, with neuropathy (Chronic ~05/2017) Adult onset, diagnosed 05/[address] [facility] [address] Douglas--recommend GLP1 Personal goal A1C <7% Secondary hyperparathyroidism (Acute ~05/2021) 05/29/21 [facility] Nephrology Family history of prostate cancer (Chronic) F Hyperlipidemia (Chronic) Medical History Diverticula of colon History of elevated PSA Per Organ Records--01/14/2019 6.41, 04/28/2018 6.32; +Fam hx prostate cancer in F Solitary left kidney [facility] Nephro (initial 07/2020); s/p nephrectomy on R 2004 renal cell cancer; partial nephrectomy on L 2007 Hypertension RX Lisinopril (stopped due to creatinine) History of Yodit's gangrene Microcytic anemia Sinus tachycardia Fever Thrombosis superficial vein, arm, acute Gallstones Kidney lesion, comanche, left Colitis due to Clostridium difficile Skin ulcer of scrotum (~2022) De Quervain's tenosynovitis, left 40 mg Depo-Medrol injection: 04/04/2022 Metabolic acidosis Alcohol intoxication (~12/02/21) Osteoarthritis of elbows, bilateral Lesion of bone of left forearm proximal radius lesion Tubular adenoma of colon 08/2018 colonoscopy [facility]; recall 5y History of alcohol use disorder since 1989 with intermittent sobriety History of opioid abuse s/p surgeries; visiting brother 08/2021 ([facility] admission) History of renal cell cancer s/p nephrectomy Chronic gingivitis, plaque induced Dentist Bilateral carpal tunnel syndrome Polyneuropathy associated with underlying disease DM Surgical History H/O skin graft [facility] 07/12/22 Scrotal Abscess 07/15/22 Skin Graft with Bolster removal H/O arthroscopy of knee Remotely--both knees at some point; he cannot recall what, but thinks meniscal History of nephrectomy, right (~03/2004) Renal cell cancer H/O partial nephrectomy (~04/2007) left Family History Mother , 54yo breast cancer Alcohol abuse Breast cancer Depression Substance abuse Father , ~70yo prostate cancer Alcohol abuse Prostate cancer Substance abuse Sister , throat caner (nicotine use) Alcohol abuse Cancer Cervical Substance abuse Social History Smoking/Tobacco Use Status: Never Smoking risk assessment performed?: Yes Alcohol Intake: current Alcohol Intake frequency: a few times a month Alcohol type: beer and hard liquor Previous attempts at quittin Counseling given: Yes ([facility] AT [facility] [place]) Drug use: Current Sobriety Substance use type: does not use and opiates Details: no IV drug use Adopted: No Caregiver/Support person: No Foster care: No Household members: other Details: Sober Living Facility Housing: other Number of Children: 4 number of grandchildren: 4 Communication Needs: None Education Level: college Do you need help understanding health information?: Rarely 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) Pets and animals: Yes Pets and animals: cat(s) Sexually active: No Do you think of yourself as: straight/heterosexual Current gender identity: male What is your relationship status?: How often do you talk on the phone with friends or family?: three or more times per week How often do you get together with friends or relatives?: three or more times per week How often do you attend restorationism or baptist services?: 4 or more times per year Do you belong to any clubs or organized social groups?: no Panel score (0-1 are the most socially isolated patients): 2 What type of physical activity do you participate in: walking, bicycling and other Details: EXERCISE ON STATIONARY BIKE Duration: < 15 minutes/day Frequency: 3-4 times per week Erin/Bahai: Episcopal Agree to transfusion: No Seatbelt use: always Helmet use: Yes Drive intox or ride w/intox tank driver: No Water heater temp set <120 deg: Yes Working smoke detector in home: Yes Fire extinguisher in home: Yes Do you feel safe at home: Yes Do you feel safe in your relationship?: Yes Time Spent with Patient Time Spent with Patient: <45 minutes Time was spent: preparing to see the patient(eg.review tests), obtaining and/or reviewing separately otained hiistory, ordering medications,tests, procedures, referring, communicating with other health director day care center, indepentently interpreting results, counseling the patient and care coordination
--- NOTE | 2024-07-30 12:04 | CMPROGNOTE_ITS ---
Date of service: 07/30/24 Time of Service: 12:04 Care Management Progress Note Progress Note Text Progress Note Text: Mina was admitted again yesterday due to his alcohol consumption. He had been home for only one night. Mina stated that he has a bed at [facility] today. This was confirmed by CM. Arrangements have been made, by CM, with [facility] to take Mina to his car to get his clothing, and then drive him to [facility]. Mina is completely aware of this plan and he stated he is really ready to start this journey. Discharge Potential Discharge Needs: PCP F/U Appt and Other ([facility]) Anticipated Barriers to Discharge: None Identified Patient/Family Education Needs: Review discharge instructions, discuss Ask Me Three Transportation: Other ([facility] will be transporting Mina ) Plan: Mina will discharge this afternoon to [facility]. He will transport via [facility]. CM has notified [facility] of the plan. Social Determinants of Health Screening Will the Patient Participate in the Screening?: Declined to provide
--- NOTE | 2024-07-30 12:04 | PDOC.CMPRO ---
Date of service: 07/30/24 Time of Service: 12:04 Care Management Progress Note Progress Note Text Progress Note Text: Mina was admitted again yesterday due to his alcohol consumption. He had been home for only one night. Mina stated that he has a bed at [facility] today. This was confirmed by CM. Arrangements have been made, by CM, with [facility] to take Mina to his car to get his clothing, and then drive him to [facility]. Mina is completely aware of this plan and he stated he is really ready to start this journey. Discharge Potential Discharge Needs: PCP F/U Appt and Other ([facility]) Anticipated Barriers to Discharge: None Identified Patient/Family Education Needs: Review discharge instructions, discuss Ask Me Three Transportation: Other ([facility] will be transporting Mina ) Plan: Mina will discharge this afternoon to [facility]. He will transport via [facility]. CM has notified [facility] of the plan. Social Determinants of Health Screening Will the Patient Participate in the Screening?: Declined to provide
== END 2024-07-30 13:23 | DRG 897 ==
LOC: ER 19:19 → ICU 21:10
PROVIDERS: Admitting Provider Family Medicine; Emergency Provider Emergency Medicine; PCP Nurse Practitioner Adult Health; Responsible Provider Family Medicine; Visit Provider Family Medicine
DX: F10.132 Alcohol abuse with withdrawal with perceptual disturbance (principal); Z59.01 Sheltered homelessness; N25.81 Secondary hyperparathyroidism of renal origin; E87.29 Other acidosis; D63.1 Anemia in chronic kidney disease; N18.32 Chronic kidney disease, stage 3b; I12.9 Hypertensive chronic kidney disease with stage 1 through stage 4 chronic kidney disease, or unspecified chronic kidney disease; E78.2 Mixed hyperlipidemia; E79.0 Hyperuricemia without signs of inflammatory arthritis and tophaceous disease; K21.9 Gastro-esophageal reflux disease without esophagitis; E11.3293 Type 2 diabetes mellitus with mild nonproliferative diabetic retinopathy without macular edema, bilateral; Z79.899 Other long term (current) drug therapy; Z79.4 Long term (current) use of insulin; E11.22 Type 2 diabetes mellitus with diabetic chronic kidney disease; W19.XXXA Unspecified fall, initial encounter; E83.42 Hypomagnesemia; Z90.5 Acquired absence of kidney; E11.42 Type 2 diabetes mellitus with diabetic polyneuropathy; E53.8 Deficiency of other specified B group vitamins; Z85.528 Personal history of other malignant neoplasm of kidney; Y90.4 Blood alcohol level of 80-99 mg/100 ml
CPT/HCPCS: 00123; 36415; 80053; 80307; 85027; 93005; 96365; 96366; 96367; 99285; 80184; 80320; 81003; 81015; 83735; 84100; 84484; 85025; 93010; 99223; 99239; J1650; J1815; J2560; J3411; J3475